=== PATIENT | female | born 1950 | race Caucasian/White ===

== ENCOUNTER 2022-11-24 15:46 | Outpatient (OUT) | payer MEDICARE, OTHER, SELFPAY ==
[2022-11-24 16:07] LABS: Basophils Percent Auto 0.8 % (0.2-2.0); Eosinophils Absolute Auto 0.3 10^3/uL (0.0-0.7); Eosinophils Percent Auto 5.2 % (0.9-7.0); Hematocrit 36.5 % (36.0-48.0); Immature Granulocytes Abs Auto 0.02 10^3/uL (0.00-0.03); Immature Granulocytes Pct Auto 0.4 % (0.0-0.5); Lymphocytes Percent Auto 19.7 % (20.5-60.0); Mean Corpuscular HGB Conc 32.9 g/dL (29.9-35.2); Mean Corpuscular Hemoglobin 31.3 pg (26.7-34.0); Mean Corpuscular Volume 95.1 fL (81.0-99.0); Mean Platelet Volume 8.8 fL (9.5-13.5); Monocytes Absolute Auto 0.6 10^3/uL (0.3-0.8); Neutrophils Absolute Auto 3.3 10^3/uL (1.4-6.5); Neutrophils Percent Auto 62.9 % (43.0-75.0); Platelet Count 214 10^3/uL (150-450); Red Blood Count 3.84 10^6/uL (4.20-5.40); Red Cell Distribution Width 13.2 % (11.0-15.0); White Blood Count 5.2 10^3/uL (4.0-11.0)
[2022-11-24 16:38] LABS: Alanine Aminotransferase 15 U/L (14-59); Albumin Level 3.7 g/dL (3.4-5.0); Alkaline Phosphatase 107 U/L (46-116); Anion Gap 14.3; Aspartate Amino Transferase 14 U/L (15-37); BUN Creatinine Ratio 12.3; Bilirubin Total 0.5 mg/dL (0.2-1.0); Calcium 8.9 mg/dL (8.5-10.1); Chloride 105 mmol/L (98-107); Estimated GFR (African America 52 (>=60); Estimated GFR (Non-African Ame 43 (>=60); Globulin 3.7 g/dL; Glucose 127 mg/dL (74-106); Magnesium 1.8 mg/dL (1.8-2.4); Phosphorus 3.4 mg/dL (2.6-4.7); Potassium 4.3 mmol/L (3.5-5.1); Sodium 143 mmol/L (136-145); Total Protein 7.4 g/dL (6.4-8.2)
== END 2022-11-24 15:47 | disposition home or self-care (01) ==
LOC: LAB 15:46
PROVIDERS: PCP Nurse Practitioner
DX: M15.0 Primary generalized (osteo)arthritis (principal); M91.0 Juvenile osteochondrosis of pelvis; Z79.899 Other long term (current) drug therapy
CPT/HCPCS: 36415; 80053; 83735; 84100; 85025

== ENCOUNTER 2022-12-03 12:52 | Outpatient (OUT) | payer MEDICARE, OTHER, SELFPAY ==
--- NOTE | 2022-12-03 12:57 | XR_ITS ---
The [address] [address] Patient Name: BRAYDEN LINDER MRN: [id number] date: 1950 Sex: F Assigned Patient Location: [facility] Current Patient Location: [facility] Accession/Order Number: [id number] Exam Date: 12/03/2022 13:00 Report Date: 12/03/2022 14:11 At the request of: NON-STAFF PHYSICIAN Procedure: XR DEXA axial skeleton DEXA Bone Density Study INDICATION: Osteoporosis. Evaluate bone mineral density. COMPARISON:DEXA scan 06/12/2020 FINDINGS: The bone density study was assessed by dual-energy x-ray absorptiometry with the [employer] scanner. The test results are expressed in T-Score, which is used for diagnosis for osteoporosis, and reflects the standard deviations from the mean peak bone mineral density in young adults. Lumbar Spine (L2-L4): BMD (gm/cm2): 1.301 T-Score: 0.8 Left Hip TOTAL: BMD (gm/cm2): 0.927 T-Score: -0.6 Left Hip NECK: BMD (gm/cm2): 0.825 T-Score: -1.5 Right femur TOTAL: BMD (gm/cm2: 0.911 T score: -0.8 Right femur NECK: BMD (gm/cm2: 0.849 T score: -1.4 XR/XR DEXA axial skeleton IMPRESSION: Bone mineral density WHO Classification: Osteopenia Fracture risk: Moderate REFERENCE: In children, postmenopausal women and males under age 50 not at increased risk for fractures, only Z-Scores, not T-Scores, are used to indicate fracture risk. A Z-Score above -2.0 is defined as within the expected range for age and Z-Score at or less than -2.0 is below the expected range for age. A Z-Score below the expected range for age in a patient with recent fractures and/or chronic corticosteroid treatment is consistent with a diagnosis of osteoporosis. In postmenopausal women and males over 50, comparison of the measured bone mineral density with the average value in young normal subjects (the T-Score) has been found to be useful in assessing fracture risk. Fracture risk approximately doubles for each 1.0 standard deviation (SD) that the individuals hip or spine bone mineral density is below the average value of young normal subjects. The World Health Organization (WHO) has provided the following definitions: 1. Normal: T-Score within one standard deviation of young adult mean value (T-Score at or above -1.0). 2. Osteopenia (low bone mass): T-Score more than one standard deviation below the young adult mean but less than 2.5 standard deviations below the young adult mean (T-Score between -1.0 and -2.5). 3. Osteoporosis: T-Score at or more than 2.5 standard deviations below the young adult mean (T-Score at or less than -2.5). 4. Severe Osteoporosis (established osteoporosis): T-Score more than 2.5 standard deviations below young adult and one or more fragility fracture (T-Score less than -2.5 plus fragility fractures). Electronically authenticated by: ELOY KLEIN Date: 12/03/2022 14:11
== END 2022-12-03 12:53 | disposition home or self-care (01) ==
LOC: RAD 12:52
PROVIDERS: PCP Nurse Practitioner
DX: M81.0 Age-related osteoporosis without current pathological fracture (principal); M85.88 Other specified disorders of bone density and structure, other site
CPT/HCPCS: 77080

== ENCOUNTER 2023-03-20 13:25 | Outpatient (OUT) | payer MEDICARE, OTHER, SELFPAY ==
[2023-03-20 14:46] LABS: Basophils Percent Auto 0.7 % (0.2-2.0); Eosinophils Absolute Auto 0.2 10^3/uL (0.0-0.7); Eosinophils Percent Auto 2.9 % (0.9-7.0); Hematocrit 36.9 % (36.0-48.0); Hemoglobin 11.8 g/dL (12.0-16.0); Immature Granulocytes Abs Auto 0.02 10^3/uL (0.00-0.03); Immature Granulocytes Pct Auto 0.3 % (0.0-0.5); Lymphocytes Absolute Auto 1.2 10^3/uL (1.2-3.8); Lymphocytes Percent Auto 20.8 % (20.5-60.0); Mean Corpuscular Hemoglobin 31.2 pg (26.7-34.0); Mean Corpuscular Volume 97.6 fL (81.0-99.0); Mean Platelet Volume 9.5 fL (9.5-13.5); Monocytes Absolute Auto 0.7 10^3/uL (0.3-0.8); Monocytes Percent Auto 11.2 % (1.7-12.0); Neutrophils Absolute Auto 3.7 10^3/uL (1.4-6.5); Neutrophils Percent Auto 64.1 % (43.0-75.0); Platelet Count 242 10^3/uL (150-450); Red Blood Count 3.78 10^6/uL (4.20-5.40); Red Cell Distribution Width 13.6 % (11.0-15.0); White Blood Count 5.8 10^3/uL (4.0-11.0)
[2023-03-20 15:00] LABS: Alanine Aminotransferase 15 U/L (14-59); Albumin Level 3.7 g/dL (3.4-5.0); Alkaline Phosphatase 115 U/L (46-116); Anion Gap 10.9; Aspartate Amino Transferase 13 U/L (15-37); BUN Creatinine Ratio 14.6; Bilirubin Total 0.6 mg/dL (0.2-1.0); Calcium 9.3 mg/dL (8.5-10.1); Carbon Dioxide 27.1 mmol/L (21.0-32.0); Chloride 103 mmol/L (98-107); Estimated GFR (African America 49 (>=60); Estimated GFR (Non-African Ame 40 (>=60); Globulin 3.7 g/dL; Glucose 117 mg/dL (74-106); Sodium 137 mmol/L (136-145); Total Protein 7.4 g/dL (6.4-8.2)
[2023-03-20 15:14] LABS: TSH W/ REFLEX FT4 3.022 (0.358-3.740)
== END 2023-03-20 13:26 | disposition home or self-care (01) ==
PROVIDERS: Visit Provider Nurse Practitioner Family
DX: R53.83 Other fatigue (principal); Z68.41 Body mass index [BMI] 40.0-44.9, adult; I25.10 Atherosclerotic heart disease of native coronary artery without angina pectoris; R06.09 Other forms of dyspnea
CPT/HCPCS: 36415; 80053; 82306; 82607; 83880; 84443; 85025

== ENCOUNTER 2023-03-23 14:51 | Outpatient (OUT) | payer MEDICARE, OTHER, SELFPAY ==
--- NOTE | 2023-03-23 15:39 | CA_ITS ---
Patient Name: BRAYDEN LINDER MR#: [id number] : 1950 Exam Date: 03/23/2023 Ordering Doctor: JULI COSBY CNP ECHOCARDIOGRAM REPORT PROCEDURE: CA ECHO DOPPLER COMPLETE INDICATIONS: CAD, FATIGUE, WARREN COMPARISON: None. DESCRIPTION: COMPLETE ECHOCARDIOGRAM Real-time transthoracic echocardiography with 2D, M-mode, spectral and color flow Doppler performed. QUALITY: Technical quality was good. LEFT VENTRICLE: Normal chamber size. Normal left ventricular wall thickness. LV EF: Global left ventricular systolic function is normal. Visual estimation of left ventricular ejection fraction is 65% DIASTOLIC: Grade I diastolic dysfunction. ATRIAL SEPTUM: Inadequately seen. LEFT ATRIUM: Mild dilatation. RIGHT ATRIUM: Moderate dilatation. RIGHT VENTRICLE: Normal chamber size. Normal right ventricular systolic function. TRICUSPID VALVE: Normal mobility and thickness. Mild regurgitation. Moderate pulmonary hypertension. RVSP 45mmHg MITRAL VALVE: Normal mobility and thickness. No evidence of mitral valve stenosis. Mild mitral annular calcification. Trivial mitral regurgitation. AORTIC VALVE: Normal trileaflet appearance. Thickened aortic valve. Normal leaflet mobility. No evidence of aortic valve stenosis. No aortic regurgitation. AORTIC ROOT: Normal diameter and appearance. PULMONIC VALVE: Normal thickness and mobility. No stenosis. No regurgitation. PERICARDIUM: No evidence of pericardial effusion. IVC: Collapses with inspirations. Normal size. CONCLUSION: 1. Global left ventricular systolic function is normal; visually estimated ejection fraction 60 to 65% 2. The right ventricle is normal in size and systolic function 3. Grade 1, mild diastolic dysfunction 4. Biatrial enlargement 5. Mild tricuspid regurgitation 6. Moderately elevated right ventricular systolic pressure Adult Echocardiography Procedure Report Left Ventricle LVEDD (3.7 - 5.6 cm): 4.54 cm LVESD (2.2 - 4.0 cm): 3.08 cm LVIVS thickness (0.6 - 1.2 cm): 1.09 cm LVPW thickness (0.5 - 1.0 cm): 1.15 cm e': 0.10 m/s E - e': 5.80 LVOT Max Gradient: 5.58 mm[Hg] LVOT Area (cm2): 1.18 m/s Peak Velocity (LVOT): 1.18 m/s Mean Velocity (LVOT): 0.80 m/s LVOT Diameter 1.87 cm Left Atrium LA Volume Index (2D A2C): 42.34 ml/m2 Left Atrium Systolic Dimension: 3.93 cm Mitral Valve MV E to A Ratio: 0.76 Mitral Valve A-Wave Peak Velocity: 0.76 m/s Mitral Valve E-Wave Peak Velocity: 0.58 m/s Right Ventricle RV Internal Diastolic Dimension: 3.73 cm Aorta AO Root Diam: 3.07 cm Ascending Ao Diam: 2.72 cm Aortic Valve AoV Area (Peak Esau): 1.98 cm2, 1.98 cm2 AoV Area (VTI): 1.84 cm2, 1.84 cm2 Peak Velocity(Antegrade Flow): 1.63 m/s Peak Gradient(Antegrade Flow): 10.67 mm[Hg] Mean Velocity(Antegrade Flow): 1.09 m/s Mean Gradient(Antegrade Flow): 5.48 mm[Hg] Velocity Time Integral: 40.65 cm Tricuspid Valve Peak Velocity (Regurgitant Flow): 3.04 m/s, 2.84 m/s, 3.25 m/s Pulmonic Valve Mean Gradient: 2.47 mm[Hg] Mean Velocity: 0.74 m/s Peak Velocity: 1.01 m/s, 1.11 m/s Peak Gradient: 4.92 mm[Hg], 4.09 mm[Hg] Right Atrium Right Atrium Systolic Pressure: 92.10 ml, 92.10 ml Dictated by: Monico Soto M.D. on 03/24/2023 at 09:48 Approved by: Monico Soto M.D. on 03/24/2023 at 09:51
== END 2023-03-23 14:52 | disposition home or self-care (01) ==
LOC: CARD 14:51
DX: R53.83 Other fatigue (principal); I25.10 Atherosclerotic heart disease of native coronary artery without angina pectoris; R06.09 Other forms of dyspnea; M15.0 Primary generalized (osteo)arthritis; M81.0 Age-related osteoporosis without current pathological fracture; Z79.899 Other long term (current) drug therapy
CPT/HCPCS: 93306

== ENCOUNTER 2023-05-18 12:36 | Outpatient (OUT) | payer MEDICARE, OTHER, SELFPAY ==
--- OUTSIDE RECORDS SUMMARY | 2023-05-18 12:41 | XMS_ITS | CCD ---
Author Name Unknown Address [address] [place] [address] Organization [facility] Care Team Providers Care Waxer Operator Name Role Phone UNKNOWN, PROVIDER Admitting Unavailable SANAZ LAKE Referring Unavailable SANAZ LAKE Primary Care Unavailable UNKNOWN, PROVIDER Attending Unavailable SANAZ LAKE Primary Care Physician Xuan Mckeon Unavailable Unavailable Lonnie Vuong Unavailable Angela Rodriguez Unavailable Unavailable Primary Care Provider Unavailjr fulton PROVIDER, UNKNOWN Admitting Unavailable CHRIST RODRIGUEZ Referring Unavailable PROVIDER, UNKNOWN Attending Unavailable PROVIDER, UNKNOWN Admitting Unavailable PROVIDER, UNKNOWN Attending Unavailable PROVIDER, UNKNOWN Attending Unavailable CHRIST RODRIGUEZ Referring Unavailable PROVIDER, UNKNOWN Admitting Unavailable XUAN STALLWORTH Admitting Unavailable XUAN STALLWORTH Attending Unavailable KSENIA, DR LONNIE Domínguez Consulting Unavailable LAKE ., DR SANAZ Fulton Primary Care Unavailable XUAN STALLWORTH Consulting Unavailable HOY ., DR MONROE Admitting Unavailable HOY ., DR MONROE Attending Unavailable LAKE ., DR SANAZ [place] Primary Care Unavailable HOY .DR MONROE Consulting Unavailable NADERER, DR KAYLA Nugent Consulting Unavailable GRECHNY ., FERNANDO ZAMARRIPA Consulting UnavailANA Parra Consulting Unavailable TIMMIS, DR PATTON Admitting Unavailable TIMMIS, DR PATTON Attending Unavailable TIMMIS, DR PATTON Consulting Unavailable LAKE ., DR SANAZ Fult[place] Primary Care Unavailable KSENIA, DR LONNIE Domínguez Consulting Unavailable LAKE ., DR SANAZ Fulton Admitting Unavailable LAKE ., DR SANAZ Fulton Primary Care Unavailable LAKE ., DR SANAZ Fulton Attending Unavailable LAKE ., DR SANAZ Fulton Consulting Unavailable RAMIREZ Sunshine, DR SUSIE Alvarado Admitting Unavailjune Sunshine, DR SUSIE Alvarado Attending Unavaila azucena POST, DR HOWARD Gamino Consulting Unavailable LAKE ., DR SANAZ [place] Primary Care Unavailable RAMIREZ RUSH ., DR SUSIE Alvarado Consulting Unavaila ble PAY ., DR CHAVEZ Admitting Unavailable PAY ., DR CHAVEZ Attending Unavailable PAY ., DR CHAVEZ Consulting Unavailable LAKE ., DR SANAZ [place] Primary Care Unavailable KLIPPER, LONNIE Consulting Unavailable NEFCY, MAURICE Consulting Unavailable LAKE ., DR SANAZ [place] Consulting Unavailable LAKE ., DR SANAZ [place]ulton Primary Care Unavailable LAKE ., DR SANAZ Fulton Admitting Unavailable LAKE ., DR SANAZ Fulton Attending Unavailable TIMMIS, DR PATTON Admitting Unavailable TIMMIS, DR PATTON Attending Unavailable TIMMIS, DR PATTON Consulting Unavailable LAKE ., DR SANAZ [place] Primary Care Unavailable ZIEBER, DR HOWARD Gamino Consulting Unavailable LAKE ., DR SANAZ Fulton Consulting Unavailable LAKE ., DR SANAZ Fulton Admitting Unavailable LAKE ., DR SANAZ Fulton Primary Care Unavailable LAKE ., DR SANAZ Fulton Attending Unavailable LAKE ., DR SANAZ Fulton Consulting Unavailable LAKE ., DR SANAZ Fulton Primary Care Unavailable LAKE ., DR SANAZ Fulton Admitting Unavailable LAKE ., DR SANAZ Fulton Attending Unavailable LAKE ., DR SANAZ Fulton Consulting Unavailable LAKE ., DR SANAZ Fulton Admitting Unavailable LAKE ., DR SANAZ Fulton Primary Care Unavailable LAKE ., DR SANAZ [place]ulton Attending Unavailable DUENAS, DR AU Admitting Unavailable MISC, DR LEE Consulting Unavailable LAKE ., DR SANAZ [place] Primary Care Unavailable DUENAS, DR AU Attending Unavailable LAKE ., DR SANAZ [place]ulton Consulting Unavailable LAKE ., DR SANAZ [place]on Admamber Unavailable LAKE ., DR SANAZ Fulton Primary Care Unavailable LAKE ., DR SANAZ Fulton Attending Unavailable TIMMIS, DR PATTON Admitting Unavailable TIMMIS, DR PATTON Attending Unavailable LAKE ., DR SANAZ Fulton Primary Care Unavailable TIMMIS, DR PATTON Consulting Unavailable LAKE ., DR SANAZ Fulton Admitting Unavailable LAKE ., DR SANAZ Fulton Primary Care Unavailable LAKE ., DR SANAZ Fulton Attending Unavailable LAKE ., DR SANAZ Fulton Consulting Unavailable MOUKARBEL, DR ROBLEDO Consulting Unavailable LAKE ., DR SANZA Fulton Primary Care Unavailable TIMMIS, DR PATTON Admitting Unavailable TIMMIS, DR PATTON Attending Unavailable TIMMIS, DR PATTON Consulting Unavailable LAKE ., DR SANAZ [place] Primary Care Unavailable RAMIREZ RUSH ., DR SUSIE Alvarado Admitting Unavaila ble RAMIREZ RUSH ., DR SUSIE Alvarado Attending Unavaila ble ZIEBER, DR HOWARD Gamino Consulting Unavailable GUZMÁN JR ., DR SUSIE Alvarado Consulting Unavaila ble LAKE ., DR SANAZ Fulton Consulting Unavailable LAKE ., DR SANAZ Fulton Admitting Unavailable LAKE ., DR SANAZ Fulton Primary Care Unavailable LAKE ., DR SANAZ Fulton Attending Unavailable MOUKARBEL, DR ROBLEDO Consulting Unavailable MOUKARBEL, DR ROBLEDO Admitting Unavailable LAKE ., DR SANAZ Fulton Primary Care Unavailable MOUKARBEL, DR ROBLEDO Attending Unavailable MOUKARBEL, DR ROBLEDO Consulting Unavailable MOUKARBEL, DR ROBLEDO Admitting Unavailable MOUKARBEL, DR ROBLEDO Attending Unavailable LAKE ., DR SANAZ Fulton Primary Care Unavailable Amilcar Cordova. Primary Care Physician [phone] Lonnie Vuong Attending Unavailable Lonnie Vuong Admitting Unavailable Lake, Sanaz Fulton Primary Care Unavailable JULI COSBY Attending Unavailable Walsh, [place] Attending Unavailable Walsh, [place] Admitting Unavailable Walsh, [place] Admitting Unavailable Walsh, [place] Attending Unavailable LAKE, SANAZ Fulton Referring Unavailable Christ Rodriguez Admitting Unavailable Christ Rodriguez Attending Unavailable Kev, HVAC DESIGN MECHANICAL ENGINEER Radha Alvarado Attending Unavailable Prudencio Payan Attending Unavailable DO Prudencio Payan Admitting Unavailabl e LAKE, SANAZ Fulton Referring Unavailable Walsh, [place] Attending Unavailable Walsh, SHIRLEY [place] Admitting Unavailabl e LAKE, SANAZ Fulton Referring Unavailable Walsh, [place] Attending Unavailable Walsh, [place] Admitting Unavailable LAKE, SANAZ E Referring Unavailable Walsh, [place] Admitting Unavailable LAKE, SANAZ Fulton Referring Unavailable Walsh, [place] Attending Unavailable Walsh, SHIRLEY [place] Admitting Unavailabl e LAKE, SANAZ E Referring Unavailable [place], [place] Attending Unavailable Prudencio Payan Referring Unavailable Prudencio Payan Admitting Unavailable Prudencio Payan Attending Unavailable Chad Salas Admitting Unavailable ZmaluarLamarry Attending Unavailable Zumbar, Chad Referring Unavailable Walsh, [place] Admitting Unavailable Walsh, [place] Attending Unavailable Allergies Allergy Classification Reported Allergen(s) Allergy Type Date of Onset Reaction(s) Facility Penicillins (antibiotic) (1 source) Amoxicillin Drug Allergy 1 [facility] Repository (20 sources) Amoxicillin; Translations: [amoxicillin] Drug Allergy 0 rash, Hives, Other Specialty [employer] [facility] Other (1 source) Amoxicillin Drug Allergy The [facility] Repository (1 source) Amoxicillin Drug Allergy 2 [facility] Repository Medications Current Medications Medication Drug Class(es) Dates Sig (Normalized) Sig (Original) acetaminophen 300 mg / codeine phosphate 30 mg oral tablet (3 sources) Opioid Agonist take 1 tablet by mouth every six hours Acetaminophen-Cod eine #3 300-30 MG 1 tablet as needed Orally every 6 hrs Active acetaminophen 325 mg / HYDROcodone bitartrate 5 mg oral tablet (20 sources) Opioid Agonist Start: 12-26-2022 End: 01-25-2023 Delta 325 mg-5 mg oral tablet 1 tab(s), Oral, BID as needed for pain for 30 day(s), 60 tab(s), Refill(s) 0, [facility]/pharmacy #[id number], 158, cm, 12/26/22 14:12:00 EDT, Height/Length Dosing, 104.5, kg, 12/26/22 14:12:00 EDT, Weight Dosing Start Date: 12/26/22 Stop Date: 01/25/23 Status: Ordered Start: 10-09-2021 Hydrocodone-Ac etaminophen Active 1 TAB PO As Directed October 09, 2021 12:00am Start: 10-02-2021 take 1 tablet by laura th twice daily as needed for pain hydrocodone-acetaminophen (NORCO) 5-325 mg per tablet hydrocodone 5 mg-acetaminophen 325 mg tablet TAKE 1 TABLET BY MOUTH TWICE A DAY NEEDED FOR PAIN 0 06/02/2022 Active Start: 06-08-2019 End: 02-06-2021 take 1 tablet by mouth every four hours Hydrocodone-Acetaminophen (Delta) 5-325 mg Tablet Discontinued 1 TAB PO Q4H June 08, 2019 1:00am February 06, 2021 6:48am Acidophilus Probiotic Blend (2 sources) Start: 08-30-2019 take 1 capsule by mouth once daily Acidophilus Probiotic Blend 1 cap(s), Oral, Daily, Refill(s) 0 Start Date: 08/30/19 Status: Ordered [id number] 200 actuat albuterol 0.09 mg/actuat metered dose inhaler (1 source) beta2-Adrenergic Agonist Start: 11-26-2021 take 2 puff(s) by inhalation every four hours as needed Albuterol Sulfate HFA 108 (90 Base) MCG/ACT 2 puffs as needed Inhalation every 4 hrs Nov, Active alendronic acid 35 mg oral tablet (20 sources) Bisphosphonate Start: 09-26-2022 alendronate 35 mg Tab Refills(s) 0 Start Date: 09/26/22 Status: Ordered Start: 06-08-2019 take 1 tablet by laura th every week Fosamax 70 mg oral tablet 70 mg = 1 tab(s), Oral, qWeek, Thursday, Refills(s) 0, Other (see comment) Start Date: 06/07/20 Status: Ordered alendronate (FOS AMAX) 35 MG tablet alendronate 35 mg tablet 0 Active Alendronate Sodi um 70 MG 1 tablet 30 minutes before the first food, beverage or medicine of the day with plain water Orally once a week Active amLODIPine 10 mg oral tablet (7 sources) Dihydropyridine Calcium Channel Denise Start: 01-08-2022 amLODIPine 10 mg Tab Refills(s) 0 Start Date: 01/08/22 Status: Ordered aspirin 81 mg delayed release oral tablet (20 sources) Platelet Aggregation Inhibitor, Nonsteroidal Anti-inflammatory Drug Start: 06-08-2019 take 1 tablet by mouth once daily aspirin 81 mg Oral EC Tab 81 mg = 1 tab(s), Oral, Daily, Refills(s) 0, Blood Thinner Start Date: 09/13/20 Status: Ordered take 1 tablet by laura th every twenty-four hours Aspirin 81 MG 1 tablet Orally Once a day Active atorvastatin 40 mg oral tablet (4 sources) HMG-CoA Reductase Inhibitor Start: 02-06-2021 take 1 tablet by mouth once daily atorvastatin 40 mg Tab TAKE 1 TABLET BY MOUTH EVERY DAY Start Date: 02/07/21 Status: Ordered biotin 10 mg oral capsule (20 sources) Start: 03-13-2021 take 21500 ug by mouth twice daily Biotin Active 80747 MCG PO Twice daily March 13, 2021 12:00am Start: 07-01-2019 take 1 tablet by laura th twice daily biotin = 1 tab(s), Oral, BID, Refills(s) 0, Prophylaxis Start Date: 07/01/19 Status: Ordered Start: 07-01-2019 take 1 tablet by laura th twice daily biotin = 1 tab(s), Oral, BID, Refills(s) 0 Start Date: 07/01/19 Status: Ordered Start: 06-08-2019 End: 03-13-2021 take 1500 ug by mouth twice daily Biotin Discontinued 1500 MCG PO Twice daily June 08, 2019 1:00am March 13, 2021 10:27am take 1 tablet by laura th twice daily Biotin 95703 MCG TABS 1 tablet Orally bid 0 Active Biotin Maximum 93572 MCG (3 sources) Biotin Maximum 1 0000 MCG as directed Orally twice a day Active bisoprolol fumarate 10 mg oral tablet (20 sources) beta-Adrenergic Denise Start: 02-06-2021 take 1 tablet by mouth once daily bisoprolol 10 mg Tab 10 mg = 1 tab(s), Oral, Daily, High blood pressure Start Date: 10/31/21 Status: Ordered brimonidine (20 sources) alpha-Adrenergic Agonist Start: 10-22-2015 take 1 drop(s) into the eye(s) at bedtime Alphagan P 1 drop, Eye-Both, Bedtime, Refill(s) 0, Other (see comment) Start Date: 10/22/15 Status: Ordered take 1 drop(s) into the eye(s) every eight hours Brimonidine Tartrate 0.2 % 1 drop into affected eye Ophthalmic every 8 hrs Active Calcium + D3 600-800 MG-UNIT (3 sources) take 600-800 tablets by mouth once daily Calcium + D3 600-800 MG-UNIT 1 tablet with a meal Orally Once a day Active calcium carbonate 1500 mg / cholecalciferol 200 unt oral capsule (2 sources) Vitamin D Start: 06-08-2019 take 1 tablet by mouth once daily Calcium Carbonate-Vitamin D3 (Calcium 600 + D(3)) 600 mg calcium- 200 unit Capsule Active 1 TAB PO Daily June 08, 2019 1:00am Calcium Carb-Cho lecalciferol 600-20 MG-MCG TABS Take by mouth every 24 hours. 0 Active calcium-vitamin D extended release (20 sources) Start: 10-31-2021 take 2 tablets by mouth once daily in the morning calcium-vitamin D extended release 2 tab(s), Oral, qAM, Prophylaxis Start Date: 10/31/21 Status: Ordered Chondroitin Sulfates / Glucosamine (20 sources) Start: 10-31-2021 take 1 capsule by mouth twice daily Glucosamine Chondroitin oral capsule 1 cap, Oral, BID, Prophylaxis Start Date: 10/31/21 Status: Ordered Start: 04-02-2021 Glucosamine Ch ondroitin Oral, Daily, Refill(s) 0 Start Date: 04/02/21 Status: Ordered [place] Calcium with Vitamin D (2 sources) Start: 05-20-2017 take 1 tablet by mouth once daily [place] Calcium with Vitamin D 1 tab(s), Oral, Daily, 600mg, Prophylaxis Start Date: 05/20/17 Status: Ordered Cyanocobalamin (Vitamin B-12) (Vitamin B-12) 5,000 mcg Tablet, Sublingual (1 source) Start: 03-13-2021 take 1 tablet under the tongue once daily Cyanocobalamin (Vitamin B-12) (Vitamin B-12) 5,000 mcg Tablet, Sublingual Active 5000 MCG SUBLINGUAL Daily March 13, 2021 12:00am doxepin hydrochloride 10 mg oral capsule (20 sources) Tricyclic Antidepressant Start: 10-31-2021 take 1 capsule by mouth once daily doxepin 10 mg Cap 10 mg = 1 cap(s), Oral, Daily, Depression Start Date: 10/31/21 Status: Ordered furosemide 40 mg oral tablet (4 sources) Loop Diuretic Start: 09-26-2022 take 1 tablet by mouth twice daily furosemide 40 mg Tab 40 mg = 1 tab(s), Oral, BID, Refills(s) 0 Start Date: 09/26/22 Status: Ordered Start: 07-26-2022 take 1 tablet by laura th once daily in the morning furosemide (LASIX) 40 MG tablet Take 40 mg by mouth every morning. 0 07/26/2022 Active gabapentin 300 mg oral capsule (20 sources) Anti-epileptic Agent Start: 12-08-2022 gabapenti n 300 mg Cap See Instructions, one cap in AM, 2 caps at bedtime., # 270 cap(s), Refills(s) 0, Pharmacy: [facility], 158, cm, 09/26/22 13:04:00 EDT, Height/Length Dosing, 106.6, kg, 09/16/22 13:01:00 EDT, Weight Dosing Start Date: 12/08/22 Status: Ordered Start: 04-25-2021 gabapentin (NE URONTIN) 300 MG capsule Start: 06-08-2019 take 300 mg by mouth once daily at bedtime Gabapentin Active 600 MG PO Daily at bedtime June 08, 2019 1:00am 300mg AM take 1 capsule by [facility] every eight hours Gabapentin 300 MG 1 capsule Orally three times a day Active Glucos Sul 3yry-Ydl-Pteub-C-Mn (Glucosamine Chondroitin) 550-30-1 mg Capsule (1 source) Start: 06-08-2019 take 1 tablet by mouth twice daily Glucos Sul 3kop-Xfv-Lkzpo-C-Mn (Glucosamine Chondroitin) 550-30-1 mg Capsule Active 1 TAB PO Twice daily June 08, 2019 1:00am Glucosamine Chondr 1500 Complx - (3 sources) Glucosamine Jonatan dr 1500 Complx - as directed Orally twice a day Active Yzmwjlpisek-Jzhmvgqor-E it C-Mn (Glucosamine Chondr 1500 Complx) CAPS (1 source) Glucosamine-Jonatan droit- Vit C-Mn (Glucosamine Chondr 1500 Complx) CAPS Take by mouth every 12 hours. 0 Active High Potency Probiotic oral capsule (20 sources) Start: 10-31-2021 take 1 capsule by mouth once daily High Potency Probiotic oral capsule 1 cap, Oral, Daily, Prophylaxis Start Date: 10/31/21 Status: Ordered hyoscyamine sulfate 0.125 mg oral tablet (16 sources) Start: 11-07-2021 take 1 tablet by mouth four times daily as needed for muscle spasms Levsin 0.125 mg SL Tab 0.125 mg = 1 tab(s), Oral, QID, PRN Spasm, # 20 tab(s), Refills(s) 0, Pharmacy: [facility]/pharmacy #[id number], 158, cm, 10/31/21 16:20:00 EDT, Height/Length Dosing, 97.9, kg, 10/31/21 16:20:00 EDT, Weight Dosing Start Date: 11/07/21 Status: Ordered inulin 200 mg / lactobacillus rhamnosus gg [id number] unt oral capsule (4 sources) Lactobacillus-In ulin ([facility]) CAPS Take by mouth. 0 Active 24 hr isosorbide mononitrate 120 mg extended release oral tablet (20 sources) Nitrate Vasodilator Start: 02-06-2021 take 1 tablet by mouth once daily in the morning isosorbide mononitrate 120 mg ER Tab 120 mg = 1 tab(s), Oral, qAM, Refills(s) 0, High blood pressure Start Date: 04/02/21 Status: Ordered take 1 tablet by laura th every twenty-four hours Isosorbide Mononitrate ER 60 MG 1 tablet in the morning Orally Once a day Active ketorolac tromethamine 10 mg oral tablet (9 sources) Nonsteroidal Anti-inflammatory Drug, Cyclooxygenase Inhibitor Start: 11-07-2021 take 1 tablet by mouth every six hours ketorolac 10 mg Tab 10 mg = 1 tab(s), Oral, q6hr, # 20 tab(s), Refills(s) 0, Pharmacy: [facility]/pharmacy #[id number], 158, cm, 10/31/21 16:20:00 EDT, Height/Length Dosing, 97.9, kg, 10/31/21 16:20:00 EDT, Weight Dosing Start Date: 11/07/21 Status: Ordered Lactobacillus Combination No.4 (Probiotic) 3 billion cell Capsule (1 source) Start: 02-06-2021 take 3 capsules by mouth once daily Lactobacillus Combination No.4 (Probiotic) 3 billion cell Capsule Active 3000 MMU CELLS PO Daily February 06, 2021 12:00am latanoprost 0.05 mg/ml ophthalmic solution (20 sources) Prostaglandin Analog Start: 10-22-2015 take 1 drop(s) into the eye(s) once daily in the morning Xalatan 0.005% Soln-Opth 1 drop(s), Eye-Both, qAM, 2.5 mL, Refill(s) 0, glaucoma, Other (see comment) Start Date: 10/22/15 Status: Ordered levothyroxine sodium 0.1 mg oral tablet (20 sources) l-Thyroxine Start: 05-26-2022 levothyroxine (SYNTHROID) 100 MCG tablet levothyroxine 100 mcg tablet 0 05/26/2022 Active Start: 06-08-2019 take 112 ug by mouth once silvestre y Levothyroxine Active 112 MCG PO Daily June 08, 2019 1:00am Start: 01-19-2019 take 100 ug by mouth once silvestre y Synthroid 100 mcg, Oral, Daily, Refills(s) 0, Thyroid Start Date: 01/19/19 Status: Ordered Start: 01-19-2019 Synthroid 125 microgram, Oral, Daily, Refills(s) 0 Start Date: 01/19/19 Status: Ordered take 1 tablet by laura th once daily in the morning Levothyroxine Sodium 125 MCG 1 tablet in the morning on an empty stomach Orally Once a day Active methylPREDNISolone 4 mg oral tablet (2 sources) Corticosteroid Start: 11-26-2021 methylPREDNISo lone (MEDROL) 4 MG tablet Take by mouth every 24 hours. 0 11/26/2021 Active Start: 11-26-2021 methylPREDNISo lone 4 MG as directed Orally Once a day for 6 days Nov, Active nitrofurantoin, macrocrystals 25 mg / nitrofurantoin, monohydrate 75 mg oral capsule (1 source) Nitrofuran Antibacterial Start: 11-07-2021 End: 11-14-2021 take 1 capsule by mouth twice daily Macrobid 100 mg Cap 100 mg = 1 cap(s), Oral, BID, X 7 day(s), # 14 cap(s), Refills(s) 0, Pharmacy: [facility]/pharmacy #[id number], 158, cm, 10/31/21 16:20:00 EDT, Height/Length Dosing, 97.9, kg, 10/31/21 16:20:00 EDT, Weight Dosing Start Date: 11/07/21 Stop Date: 11/14/21 Status: Ordered omeprazole 20 mg delayed release oral tablet (20 sources) Proton Pump Inhibitor Start: 06-08-2019 take 20 mg by mouth once daily Omeprazole Active 20 MG PO Daily June 08, 2019 1:00am Start: 11-24-2018 take 20 mg by mouth once daily omeprazole 20 mg, Oral, Daily, Control of stomach acid Start Date: 11/24/18 Status: Ordered omeprazole (PRIL OSEC) 20 MG capsule omeprazole 20 mg capsule,delayed release 0 Active Potassium Chloride (13 sources) Start: 03-27-2022 take 1 tablet by mouth twice daily Klor-Con 10 1 tab, Oral, BID, Refills(s) 0 Start Date: 03/27/22 Status: Ordered take 1 tablet by laura th twice daily at mealtime potassium chloride SA (KLOR-CON) 10 MEQ controlled release tablet 1 tablet with food Orally Twice a day 0 Active primidone 50 mg oral tablet (3 sources) Anti-epileptic Agent Start: 09-16-2022 primidone 50 mg Tab 25 mg = 0.5 tab(s), Oral, BID, # 30 tab(s), Refills(s) 0 Start Date: 09/16/22 Status: Ordered Probiotic Formula (Bacillus Coagulans) (2 sources) Start: 04-02-2021 Probiotic Formula (Bacillus Coagulans) Oral, Daily, Refill(s) 0 Start Date: 04/02/21 Status: Ordered sertraline 50 mg oral tablet (20 sources) Serotonin Reuptake Inhibitor Start: 06-08-2017 End: 08-06-2023 take 1 tablet by mouth once daily sertraline 50 mg Tab 50 mg, Oral, Daily, X 90 day(s), # 90 tab(s), Refills(s) 3, Pharmacy: [facility], 158, cm, 07/04/22 14:50:00 EST, Height/Length Dosing, 99, kg, 07/04/22 14:50:00 EST, Weight Dosing Start Date: 08/11/22 Stop Date: 08/06/23 Status: Ordered tiZANidine 4 mg oral tablet (20 sources) Central alpha-2 Adrenergic Agonist Start: 07-01-2019 take 2 tablets by mouth at bedtime tiZANidine 4 mg Tab 8 mg = 2 tab(s), Oral, Bedtime, Refills(s) 0, Insomnia Start Date: 07/01/19 Status: Ordered Start: 06-08-2019 take 8 mg by mouth at bedtime Tizanidine Active 8 MG PO Bedtime June 08, 2019 1:00am tizanidine (ANTONI FLEX) 4 MG tablet tizanidine 4 mg tablet 0 Active Vitamin B12 Methylcobalamin 5000 mcg sublingual tablet (20 sources) Start: 10-31-2021 take 1 tablet under the tongue once daily Vitamin B12 Methylcobalamin 5000 mcg sublingual tablet 5,000 mcg, SubLingual, Daily, Prophylaxis Start Date: 10/31/21 Status: Ordered Completed/Discontinued Medications Medication Drug Class(es) Dates Sig (Normalized) Sig (Original) bisoprolol fumarate 10 mg / hydroCHLOROthiazide 6.25 mg oral tablet (4 sources) Thiazide Diuretic, beta-Adrenergic Denise Start: 06-08-2019 End: 02-06-2021 take 1 tablet by mouth once daily Bisoprolol-Hydroc hlorothiazide Discontinued 1 TAB PO Daily June 08, 2019 1:00am February 06, 2021 6:44am lisinopril 5 mg oral tablet (5 sources) Angiotensin Converting Enzyme Inhibitor Start: 06-08-2019 End: 02-06-2021 take 5 mg by mouth once daily Lisinopril Discontinued 5 MG PO Daily June 08, 2019 1:00am February 06, 2021 6:48am lisinopril (ZEST RIL) 5 MG tablet Take by mouth every 24 hours. 0 Active 12 hr ranolazine 1000 mg extended release oral tablet (20 sources) Anti-anginal Start: 02-06-2021 take 1 tablet by mouth twice daily ranolazine 1000 mg oral tablet, extended release 1,000 mg = 1 tab(s), Oral, BID, TAKE 1 TABLET BY MOUTH TWO TIMES A DAY Start Date: 02/07/21 Status: Ordered Ranolazine Activ e sulindac 150 mg oral tablet (1 source) Nonsteroidal Anti-inflammatory Drug Start: 06-08-2019 End: 02-06-2021 take 150 mg by mouth once daily Sulindac Discontinued 150 MG PO Daily June 08, 2019 1:00am February 06, 2021 6:48am vitamin b12 1 mg oral tablet (1 source) Vitamin B12 Start: 06-08-2019 End: 03-13-2021 take 1 tablet by mouth once daily Cyanocobalamin (Vitamin B-12) (Vitamin B-12) 1,000 mcg Tablet Discontinued 1000 MCG PO Daily June 08, 2019 1:00am March 13, 2021 10:27am Vitamin B12 1000 mcg Tab (2 sources) Start: 10-22-2015 take 1 tablet by mouth once daily Vitamin B12 1000 mcg Tab 1,000 microgram = 1 tab(s), Oral, Daily, Refills(s) 0, Prophylaxis Start Date: 10/22/15 Status: Ordered Problems Active Problems Problem Classification Problem Date Documented Da te Episodic/Chronic Anxiety disorders (20 sources) Anxiety 07-01-2019 Chronic Calculus of urinary tract (20 sources) Kidney stone; Translations: [Calculus of kidney] Onset: 10-22-2021 Episodic Cancer of thyroid (20 sources) Malignant tumor of thyroid gland; Translations: [Malignant neoplasm of thyroid gland] Onset: 09-24-2021 04-02-2021 Chronic Cancer of uterus (6 sources) Malignant neoplasm of uterus; Translations: [Malignant neoplasm of uterus, part unspecified] Onset: 09-23-2021 04-02-2021 Chronic Chronic kidney disease (3 sources) Chronic kidney disease stage 2; Translations: [Chronic kidney disease, stage 2 (mild)] Chronic Chronic kidney disease (1 source) Chronic kidney disease; Translations: [CHRONIC KIDNEY DISEASE STAGE 3A] Onset: 02-19-2022 Coagulation and hemorrhagic disorders (1 source) Easy bruising; Translations: [Spontaneous ecchymoses] 06-08-2019 Episodic Congestive heart failure; nonhypertensive (2 sources) Chronic diastolic (congestive) heart failure; Translations: [Acute on chronic diastolic (congestive) heart failure] Onset: 02-19-2022 Chronic Coronary atherosclerosis and other heart disease (7 sources) Atherosclerotic heart disease of [place] coronary artery without angina pectoris; Translations: [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] Onset: 03-31-2022 Chronic Deficiency and other anemia (3 sources) Anemia due to chronic blood loss; Translations: [Iron deficiency anemia secondary to blood loss (chronic)] Chronic Deficiency and other anemia (5 sources) Iron deficiency anemia secondary to blood loss (chronic); Translations: [IRON DEFIC ANEMIA SEC BLD LOSS CHRN] Onset: 09-24-2021 Resolved: 09-25-2021 Chronic Deficiency and other anemia (20 sources) Anemia 04-02-2021 Episodic Deficiency and other anemia (7 sources) Iron deficiency anemia; Translations: [Iron deficiency anemia, unspecified] 03-13-2021 Episodic Deficiency and other anemia (1 source) Deficiency and other anemia; Translations: [D50.9 - Iron deficiency anemia, unspecified] Onset: 10-09-2021 Disorders of lipid metabolism (20 sources) Hyperlipidemia; Translations: [Mixed hyperlipidemia] Onset: 04-05-2022 04-02-2021 Chronic Essential hypertension (20 sources) Hypertensive disorder 07-04-2019 Chronic Gastrointestinal hemorrhage (3 sources) Hematochezia; Translations: [Melena] Episodic Genitourinary symptoms and ill-defined conditions (20 sources) Blood in urine; Translations: [Microscopic hematuria] Onset: 09-24-2021 06-28-2019 Episodic Glaucoma (20 sources) Glaucoma 07-04-2019 Chronic Hypertension with complications and secondary hypertension (7 sources) Malignant hypertensive chronic kidney disease; Translations: [Hypertensive chronic kidney disease with stage 1 through stage 4 chronic kidney disease, or unspecified chronic kidney disease] Onset: 02-14-2022 Chronic Intestinal infection (20 sources) Clostridium difficile diarrhea 08-30-2019 Episodic Malaise and fatigue (6 sources) Weakness; Translations: [Other fatigue] Onset: 09-12-2022 Episodic Nonspecific chest pain (3 sources) Chest pain, unspecified; Translations: [CHEST PAIN UNSPECIFIED] Onset: 02-19-2022 Episodic Osteoarthritis (20 sources) Arthritis; Translations: [Osteoarthritis] Onset: 06-06-2022 07-01-2019 Chronic Osteoporosis (1 source) Age-related osteoporosis without current pathological fracture; Translations: [AGE-REL OSTEOPOR W/O CURR PATH FX] Onset: 06-09-2022 Chronic Other aftercare (1 source) long term care social worker (current) use of aspirin; Translations: [FCI CURRENT USE OF ASPIRIN] Onset: 09-16-2022 Episodic Other aftercare (1 source) Other correction (current) drug therapy; Translations: [OTH CASH GRAIN FARMER CURRENT DRUG THERAPY] Onset: 09-16-2022 Episodic Other and ill-defined heart disease (20 sources) Heart disease 04-02-2021 Chronic Other and unspecified benign neoplasm (4 sources) History of polyp of colon; Translations: [Personal history of colonic polyps] 02-06-2021 Episodic Other bone disease and musculoskeletal deformities (20 sources) Osteopenia 07-01-2019 Episodic Other circulatory disease (20 sources) Low blood pressure 11-24-2018 Episodic Other diseases of kidney and ureters (3 sources) Disorder of kidney and/or ureter; Translations: [Other specified disorders of kidney and ureter] Onset: 10-22-2021 Chronic Other diseases of kidney and ureters (16 sources) Renal mass 01-08-2022 Chronic Other diseases of kidney and ureters (1 source) Other specified disorders of kidney and ureter; Translations: [OTHER SPEC DISORDERS KIDNEY URETER] Onset: 01-14-2022 Chronic Other gastrointestinal disorders (3 sources) Swollen abdomen; Translations: [Abdominal distension (gaseous)] Episodic Other injuries and conditions due to external causes (1 source) History of falling; Translations: [HISTORY OF FALLING] Onset: 09-16-2022 Episodic Other liver diseases (20 sources) Disease of liver 04-02-2021 Chronic Other lower respiratory disease (3 sources) Dyspnea 09-16-2022 Episodic Other lower respiratory disease (2 sources) Other forms of dyspnea; Translations: [Other forms of dyspnea] Onset: 01-18-2022 Episodic Other nervous system disorders (20 sources) Carpal tunnel syndrome 01-19-2019 Chronic Other nervous system disorders (20 sources) Trigeminal neuralgia 11-24-2018 Episodic Other nutritional; endocrine; and metabolic disorders (2 sources) Body mass index (BMI) 40.0-44.9, adult; Translations: [Body mass index (BMI) 40.0-44.9, adult] Onset: 03-18-2023 Chronic Other screening for suspected conditions (not mental disorders or infectious disease) (13 sources) Abnormal renal function 01-23-2022 Episodic Residual codes; unclassified (20 sources) Sleep apnea 09-18-2021 Chronic Residual codes; unclassified (20 sources) Chronic back pain 06-08-2017 Episodic Screening and history of mental health and substance abuse codes (1 source) Personal history of nicotine dependence; Translations: [PERSONAL HISTORY OF NICOTINE DEPEND] Onset: 09-16-2022 Episodic Spondylosis; intervertebral disc disorders; other back problems (5 sources) Cervical spondylosis; Translations: [Other spondylosis with myelopathy, cervical region] Onset: 07-30-2022 Chronic Spondylosis; intervertebral disc disorders; other back problems (1 source) Cervicalgia; Translations: [CERVICALGIA] Onset: 09-16-2022 Episodic Substance-related disorders (4 sources) Nicotine dependence; Translations: [Smoker] 04-02-2021 Chronic Comment on above: Added secondary to d ocumentation in Social History. Thyroid disorders (20 sources) Hypothyroidism; Translations: [Thyroid nodule] Onset: 09-16-2022 07-04-2019 Chronic Unclassified (18 sources) Long-term current use of opiate analgesic drug Onset: 11-21-2021 11-21-2021 Comment on above: Added secondary to c urrent Opioid Treatment Agreement Unclassified (1 source) CONTACT W/AND (SUSP) EXPOS COVID-19; Translations: [CONTACT W/AND (SUSP) EXPOS COVID-19] Onset: 09-16-2022 Past or Other Problems Problem Classification Problem Date Documented Date Episodic/Chronic Acute and unspecified renal failure (1 source) Acute kidney failure, unspecified; Translations: [ACUTE KIDNEY FAILURE UNSPECIFIED] Onset: 02-19-2022 Episodic Chronic obstructive pulmonary disease and bronchiectasis (1 source) Bronchitis, not specified as acute or chronic Onset: 11-26-2021 Resolved: 11-26-2021 Episodic Deficiency and other anemia (4 sources) Anemia, unspecified; Translations: [ANEMIA UNSPECIFIED] Onset: 12-17-2021 Episodic Deficiency and other anemia (4 sources) Iron deficiency anemia, unspecified; Translations: [IRON DEFICIENCY ANEMIA UNSPECIFIED] Onset: 11-08-2021 Episodic Fluid and electrolyte disorders (1 source) Hypokalemia; Translations: [HYPOKALEMIA] Onset: 02-19-2022 Episodic Other diseases of kidney and ureters (1 source) Hydronephrosis with renal and ureteral calculous obstruction; Translations: [HYDRONPHROS RENL AND URETRL CALCUL OBST] Onset: 01-14-2022 Episodic Other lower respiratory disease (1 source) Shortness of breath; Translations: [SHORTNESS OF BREATH] Onset: 04-05-2022 Episodic Respiratory failure; insufficiency; arrest (adult) (1 source) Acute respiratory failure with hypoxia; Translations: [ACUTE RESPIRATORY FAIL W/HYPOXIA] Onset: 02-19-2022 Episodic Urinary tract infections (4 sources) Urinary tract infection, site not specified; Translations: [UTI SITE NOT SPECIFIED] Onset: 05-20-2022 Episodic Results Test Name Value Interpretation Reference Range Facility Lab Reportson 04-29-2023 Lab Reports [id number]#1 .00TIFF [facility] Consultation Noteon 04-14-20 Consultation Note [id number]#1 .00TIFF [facility] 36on 04-08-2023 36 Please let her know her labs showed stable blood counts and kidney function. Vit b12 level was normal. Her vit d level was low at 26.3. Please send results to PCP and have her follow-up with them to discuss vit D supplementation. Her ECHO showed normal pumping function, no significant changes compared to her last ECHO. No other changes. I spoke with Dr. Tobias. We can have her go to cardiac rehab again. Otherwise follow-up with Dr. Tobias as planned. Thanks, Ericka [facility] Telephoneon 04-08-2023 Telephone [id number] Yasmeen Linder richard Lopez 1950 F Date Provider Department Center 04/08/2023 JULI SAUNDERS Ronnell Sánchez Family History Problem Relation Age of Onset Heart failure Mother Family Status - Relation Status Age at Mother Normal [facility] Office Visiton 03-18-2023 Follow-up visit [id number] Malcom Linderantonio Lopez 1950 F Date Provider Department Center 03/18/2023 JULI SAUNDERS [facility] Family History Problem Relation Age of Onset Heart failure Mother Family Status - Relation Status Age at Mother Level of Service:58462 ND OFFICE/OUTPATIENT ESTABLISHED MOD MDM 30-39 MIN Reason for Visit and Comments: Coronary Artery Disease [187] Hypertension [662106] Hyperlipidemia [182] Shortness of Breath [747450] Normal [facility] Consent for Treatmenton Consent for Treatment [id number]# 1.00TIFF [facility] Consultation Noteon 02-13-20 Consultation Note Patient: DIANN LINDER Age: 73 years Sex: Female : 1950 Associated Diagnoses: None Author: Prudencio Payan DO Chief Complaint 02/12/2023 12:33 EDT lower back pain History of Present Illness Patient is presenting with complaints of isolated low back pain that is nonradiating in nature that can be a 2/10 at present and can increase to a 7/10 in severity when exacerbated. She also has upper cervical pain as well as left elbow pain that does radiate into her left fifth digits occasionally. She feels that this pain has been going on for about 1 year and she denies any progressive strength loss or clumsiness with her hands as a result of the pain in her neck or left upper extremity. For her neck, she is actively following up with a spine surgeon to evaluate surgical options at this time. In regard to her low back, this pain is exacerbated by prolonged standing such as standing to cook clean or do the dishes and is worsened anytime she is on her feet or moving around. She denies any radiation of symptoms from her low back down her legs. She feels that the L5/S1 interlaminar epidural steroid injection on 01/21/2023 provided about 30% relief ongoing. She feels that this did provide some relief but did not alleviate all of her symptoms. LILIANE Score: 44% PHQ-2: 2 Patient denies any symptoms of progressively worsening upper/lower extremity weakness, progressively worsening gait abnormality, new onset bowel/bladder incontinence/ urinary retention, or saddle anesthesia. No new or worsening symptoms of fever, chills, night sweats. Health Status Allergies: Allergic Reactions (All) Severity Not Documented Amoxicillin- Hives. Canceled/Inactive Reactions (All) No Known Allergies, Allergies (1) Active Reaction amoxicillin Hives Current medications: Home Medications (22) Active alendronate 35 mg Tab Alphagan P 1 drop, Eye-Both, Bedtime aspirin 81 mg Oral EC Tab 81 mg = 1 tab(s), Oral, Daily biotin 1 tab(s), Oral, BID bisoprolol 10 mg Tab 10 mg = 1 tab(s), Oral, Daily calcium-vitamin D extended release 2 tab(s), Oral, qAM doxepin 10 mg Cap 10 mg = 1 cap(s), Oral, Daily furosemide 40 mg Tab 40 mg = 1 tab(s), Oral, BID gabapentin 300 mg Cap See Instructions Glucosamine Chondroitin oral capsule 1 cap, Oral, BID High Potency Probiotic oral capsule 1 cap, Oral, Daily isosorbide mononitrate 120 mg ER Tab 120 mg = 1 tab(s), Oral, qAM Klor-Con 10 1 tab, Oral, BID Delta 325 mg-5 mg oral tablet 1 tab(s), PRN, Oral, BID omeprazole 20 mg, Oral, Daily primidone 50 mg Tab 25 mg = 0.5 tab(s), Oral, BID ranolazine 1000 mg oral tablet, extended release 1,000 mg = 1 tab(s), Oral, BID sertraline 50 mg Tab 50 mg, Oral, Daily Synthroid 100 mcg, Oral, Daily tiZANidine 4 mg Tab 8 mg = 2 tab(s), Oral, Bedtime Vitamin B12 Methylcobalamin 5000 mcg sublingual tablet 5,000 mcg, SubLingual, Daily Xalatan 0.005% Soln-Opth 1 drop(s), Eye-Both, qAM , No qualifying data available Histories Past Medical History: Active Thyroid cancer (777877671) Resolved Arthritis (4148822): Resolved. Anxiety (83221016): Resolved. Trigeminal neuralgia of left side of face (29501942): Resolved. Osteopenia (481400008): Resolved. Hypotension (31935741): Resolved. Thyroid cancer (0770185367): Resolved. Carpal tunnel (023030549): Resolved. Liver disease (301389506): Resolved. Microscopic hematuria (458778703): Resolved. Family History: Hypertension Mother Primary malignant neoplasm of female genital organ Mother Heart failure Mother Arthritis Mother Hyperlipidemia Mother Procedure history: Epidural injection of lumbar spine using fluoroscopic guidance ([id number]) on 01/21/2023 at 72 Years. Comments: 02/12/2023 12:36 Ericka Duke RN L5-S1 30% relief Epidural injection of lumbar spine using fluoroscopic guidance ([id number]) on 04/30/2022 at 72 Years. Comments: 06/02/2022 12:54 Denisse Jovel RN L5/S1-50% relief ESWL - Extracorporeal shockwave lithotripsy for renal calculus (027661736) on 11/07/2021 at 71 Years. ALINA L5/S1 ([id number]) on 10/23/2021 at 71 Years. Comments: 11/21/2021 15:36 Katelynn Meng RN L5/S1 60% relief Cystoscope (71937127) on 04/29/2021 at 71 Years. Bilateral L3-L5 RFA (6063818821) on 04/10/2021 at 71 Years. Comments: 05/31/2021 12:43 Katelynn Moscoso RN L3-L5 20% relief Injection of nerve root of lumbar spine using fluoroscopic guidance (7389158436) on 05/16/2020 at 70 Years. Comments: 06/07/2020 9:51 Ericka Horton RN Bilatateral L5- 20% relief Radiofrequency ablation of medial branch of lumbar nerve using fluoroscopic guidance (4384237439) on 01/25/2020 at 69 Years. Comments: 02/23/2020 11:08 EDT - Tristan Deputy Clerk., Charline B/L S1-S3 RFA 35% relief Injection of sacroiliac joint using fluoroscopic guidance (6882376339) on 11/30/2019 at 69 Years. Comments: 12/29/2019 11:39 EDT Darrel Husdon Certifie (more content not included)... [facility] Comment on above: Result Comment: Elec tronically Signed By: Prudencio Payan DO\[employer]\Date and Time Signed: 02/12/23 13:08 EDT Office/Clinic Note-Physician on 02-12-2023 Office/Clinic Note-Physician [id number]#1 .00TIFF [facility] Patient Correspondenceon Patient Correspondence [id number]#1 .00TIFF [facility] Patient Correspondence [id number]#1 .00TIFF [facility] Patient History Officeon Patient History Office [id number]#1 .00TIFF [facility] Consent for Procedure/Surger yon 01-21-2023 Consent for Procedure/Surgery [id number]#1 .00CD:127 [facility] Consent for Treatmenton 01-09 Consent for Treatment [id number]# 1.00CD:127 [facility] Discharge Instructionson Discharge Instructions [id number]#1 .00CD:127 [facility] IntraOperative Documentson 0 01-21-2023 IntraOperative Documents [id number]#1 .00CD:127 [facility] Main OR Intraoperative Recor don 01-21-2023 Main OR Intraoperative Record IntraOp Document Type FTPM Summary Primary Physician: Prudencio Payan DO Finalized Date/Time: 01/21/23 10:51:31 Pt. Name: DIANN LINDER Taqueria/Sex: 1950 Female Med Rec #: [id number] Physician: Prudencio Payan DO Financial #: [id number] Pt. Type: O Room/Bed: / Admit/Disch: 01/21/23 09:16:42 - Institution: Case Times FTPM Entry 1 Patient Times In Room 01/21/23 10:43:00 Out Room 01/21/23 10:52:00 Procedure Times Start 01/21/23 10:46:00 Stop 01/21/23 10:51:00 Anesthesia Times Last Modified By: Mindy Jang RN 01/21/23 10:51:24 Case Attendance FTPM Entry 1 Entry 2 Entry 3 Case Attendee Prudencio Payan DO, RN, Antoinette Carreon Role Performed Surgeon - Primary Social Worker - Primary Scrub - Primary Time In 01/21/23 10:43:00 01/21/23 10:43:00 01/21/23 10:43:00 Time Out 01/21/23 10:52:00 01/21/23 10:52:00 01/21/23 10:52:00 Procedure LUMBAR EPIDURAL STEROID LUMBAR EPIDURAL STEROID LUMBAR EPIDURAL STEROID INJECTION(.) INJECTION(.) INJECTION(.) Comments Last Modified By: Suhail CUEVA, Mindy Jang RN, Mindy Molina RN 01/21/23 10:51:26 01/21/23 10:51:26 01/21/23 10:51:26 Entry 4 Entry 5 Case Attendee Ramirez CUEVA, Javier Mallory Role Performed Scrub - Relief Landscape Foreman Time In 01/21/23 10:43:00 01/21/23 10:43:00 Time Out 01/21/23 10:52:00 01/21/23 10:52:00 Procedure LUMBAR EPIDURAL STEROID LUMBAR EPIDURAL STEROID INJECTION(.) INJECTION(.) Comments Last Modified By: Suhail CUEVA, Mindy Mindy Sheppard RN 01/21/23 10:51:26 01/21/23 10:51:26 Perioperative Protocols FTPM Pre-Care Text: Implements protective measures prior to operative or invasive procedure, confirms identity before the operative or invasive procedure, verifies operative procedure, surgical site, and laterality Entry 1 Procedure(s) LUMBAR EPIDURAL STEROID Patient Identity Birthday, ID Band INJECTION(.) Verified (select at Check, Patient least 2): Participation Consents / H and P HandP, Surgery/Procedure Operative Site Present Verified Consent Marking Verified Surgical Site Yes Laterality Verified Yes Verified Procedure Verified Yes Correct Patient Yes Position Verified Availability Equipment, Medication, PreOp Antibiotic No Verified (If X-ray Given Applicable) Time Out Mindy Jang RN, Time Out Complete 01/21/23 10:43:00 Participants Antoinette Ozuna, Prudencio Payan DO, Smith RN, Ronald Salcedo Bryce Outcomes Met? Yes Last Modified By: Mindy Jang RN 01/21/23 10:46:16 Post-Care Text: The patient is free from signs and symptoms of injury caused by extraneous objects Allergy Information FTPM Pre-Care Text: Verifies allergies Entry 1 Allergies Reviewed? Yes Allergies Reviewed Self/Patient With Outcomes Met? Yes Last Modified By: Mindy Jang RN 01/21/23 10:43:00 Post-Care Text: The patient received appropriate medication(s) safely administered during the perioperative period Surgical Procedures FTPM Entry 1 Procedure Description Procedure LUMBAR EPIDURAL STEROID Modifiers . INJECTION Surgeon Description L5-S1 ALINA Primary Procedure Yes Primary Surgeon Prudencio Payan DO Start 01/21/23 10:46:00 Stop 01/21/23 10:51:00 Anesthesia Type None Surgical Service Pain Management Wound Class 1 - Clean Last Modified By: Mindy Jang RN 01/21/23 10:51:28 General Case Data FTPM Pre-Care Text: Classifies surgical wound, implements aseptic technique, initiates traffic control Entry 1 Case Information OR Pain Proc Room Case Level Level 2 Wound Class 1 - Clean Specialty Pain Management Preop Diagnosis M54.18, M48.062 Postop Same As Preop Yes Postop Diagnosis M54.18, M48.062 Outcomes Met? Yes Last Modified By: Mindy Jang RN 01/21/23 10:46:36 Post-Care Text: The patient is free from signs and symptoms of infection Skin Assessment (Pre Procedure) FTPM Pre-Care Text: Implements protective measures to prevent skin/ tissue injury due to thermal or mechanical sources Evaluates for signs and symptoms of physical injury to skin and tissue Entry 1 Skin Integrity Intact, Clyman, Warm, and Skin Abnormality No Dry Outcomes Met? Yes Last Modified By: Mindy Jang RN 01/21/23 10:43:08 Post-Care Text: The patient is free from signs and symptoms of injury caused by extraneous objects Patient Positioning FTPM Pre-Care Text: Identifies physical alterations that require additional precautions for procedure-specific positioning, verifies presence of prosthetics or corrective devices, positions the patient, evaluates the patient for signs and symptoms of injury as a result of positioning Entry 1 Procedure LUMBAR EPIDURAL STEROID Body Position Prone INJECTION(.) Feet Uncrossed? Yes Left Arm Position Resting at Side Right Arm Position Resting at Side Left Leg Position Extended Right Leg Position Extended Positioning Device Rodney (more content not included)... [facility] Main OR Preoperative Recordo n 01-21-2023 Main OR Preoperative Record Holding Area Document Type FTPM Summary Primary Physician: Prudencio Payan DO Finalized Date/Time: 01/21/23 09:56:09 Pt. Name: DIANN LINDER/Sex: 1950 Female Med Rec #: [id number] Physician: Prudencio Payan DO Financial #: [id number] Pt. Type: O Room/Bed: / Admit/Disch: 01/21/23 09:16:42 - Institution: Case Times Holding FTPM Pre-Care Text: Verifies consent for planned procedure, identifies individual values and wishes concerning care, includes family members in perioperative teaching Secures patient's records' belongings, and valuables, maintains patient's dignity and privacy, and maintains patient confidentiality Entry 1 In Holding 01/21/23 09:47:00 Outcomes Met? Yes Last Modified By: Asmita Camacho RN 01/21/23 09:55:03 Post-Care Text: The patient participates in decisions affecting his or her perioperative plan of care The patient's right to privacy is maintained Surgery Checklist FTPM Entry 1 Patient Birthday, ID Band Procedure History and Physical, Identification: Check, Patient Verification: Surgical Consent, With Participation Patient NPO after Midnight: n/a Personal Items: Glasses Complaints of Pain: Yes Pain Comment: 06/20 lower buttocks Operative Site Yes Marked By: Schuyler Marking: Does Patient Smoke No Patient states Yes Comment - Adult Shaquille- postop adult Supervision supervision available Case Cancelled in No Holding Area see comments below for reason Last Modified By: Asmita Camacho RN 01/21/23 09:56:00 Finalized By: Asmita Camacho RN Document Signatures Signed By: Asmita Camacho RN 01/21/23 09:56 [facility] Operative Reporton 3 Operative Report L5/S1 interlaminar epidural steroid injection under fluoroscopic guidance for M54.18 And M48.062. After informed consent was obtained, the patient was brought to the procedure suite and placed in the prone position. Pulse oximetry and blood pressure were monitored throughout. Low back areas prepped and draped in the usual sterile fashion. Using fluoroscopic guidance, the skin and subcutaneous tissue overlying the needle trajectory were anesthetized with 2% lidocaine. An 18-gauge Touhy needle was inserted and directed by fluoroscopy. Entry into the epidural space was confirmed using the [id number] technique and 2 cc of air. Injection of contrast revealed appropriate spread without vascular uptake. 4 mL of normal saline plus 40 mg of methylprednisolone was then injected. The needle was removed and the patient was then transferred to the cover room in stable condition. The patient tolerated the procedure well. There were no apparent complications. Follow-up: The patient will update us on the response to this procedure, and agrees to continue currently prescribed/recommende d therapies. [facility] Comment on above: Result Comment: Elec tronically Signed By: Prudencio Payan DO.br\Date and Time Signed: 01/21/23 10:52 EDT Patient Correspondenceon Patient Correspondence [id number]# 1.00CD:127 [facility] Office/Clinic Note-Physician on 01-05-2023 Office/Clinic Note-Physician [id number]# 1.00CD:127 [facility] Laboratory Outside Office Co pyon 01-02-2023 Laboratory Outside Office Copy [id number]# 1.00CD:127 [facility] Consent for Treatmenton 12-09 Consent for Treatment [id number]#1 .00CD:127 [facility] Consent for Treatment [id number]#1 .00CD:127 [facility] Consultation Noteon 12-27-19 Consultation Note Patient: DIANN LINDER Age: 72 years Sex: Female : 1950 Associated Diagnoses: None Author: Indiana Walsh PA-C Subjective Chief complaint 12/26/2022 14:00 EDT Back Pain . Patient is a 72-year-old female. She has a past medical history significant for previous cervical fusion, adjacent level stenosis, neck pain, cervical neuritis, lumbar stenosis and lumbar neuritis. She has previously seen Dr. Rodriguez. He discussed surgery with her but she is just not sure that this is something that she wants to do. She states that she has further thought about it and considered it but she has not yet made her decision. She is noticing neck pain, arm pain, numbness, tingling, weakness, balance issues, difficulty walking and overall fatigue. She is once again noticing lower back pain with bilateral buttock pain. Same as before. She underwent previous L5-S1 epidural steroid injection. This was done on 04/30/2022 and gave her 50% relief. She intermittently uses Delta 5/325 twice daily as needed pain. She tolerates this well. She is requesting a refill today. She also wonders about having another injection as she has undergone these multiple times in the past all with significant relief. Today, she rates her discomfort a 3/10. She barbosa her neck, arms, hands, lower back and buttocks. She states that it is starting to affect her ability to walk and stand. She cannot walk for more than 100 yards and cannot stand more than 10 minutes because of the back and buttock pain. Health Status Allergies: Allergic Reactions (Selected) Severity Not Documented Amoxicillin- Hives., Allergies (1) Active Reaction amoxicillin Hives Current medications: (Selected) Prescriptions Prescribed Delta 325 mg-5 mg oral tablet: 1 tab(s), Oral, BID as needed for pain for 30 day(s), 60 tab(s), Refill(s) 0, [id number], 158, cm, 12/26/22 14:12:00 EDT, Height/Length Dosing, 104.5, kg, 12/26/22 14:12:00 EDT, Weight Dosing gabapentin 300 mg Cap: See Instructions, one cap in AM, 2 caps at bedtime., # 270 cap(s), Refills(s) 0, Pharmacy: [facility], 158, cm, 09/26/22 13:04:00 EDT, Height/Length Dosing, 106.6, kg, 09/16/22 13:01:00 EDT, Weight Dosing sertraline 50 mg Tab: 50 mg, Oral, Daily, X 90 day(s), # 90 tab(s), Refills(s) 3, Pharmacy: [facility], 158, cm, 07/04/22 14:50:00 EST, Height/Length Dosing, 99, kg, 07/04/22 14:50:00 EST, Weight Dosing Documented Medications Documented Alphagan P: 1 drop, Eye-Both, Bedtime, Refill(s) 0, Other (see comment) Glucosamine Chondroitin oral capsule: 1 cap, Oral, BID, Prophylaxis High Potency Probiotic oral capsule: 1 cap, Oral, Daily, Prophylaxis Klor-Con 10: 1 tab, Oral, BID, Refills(s) 0 Synthroid: 100 mcg, Oral, Daily, Refills(s) 0, Thyroid Vitamin B12 Methylcobalamin 5000 mcg sublingual tablet: 5,000 mcg, SubLingual, Daily, Prophylaxis Xalatan 0.005% Soln-Opth: 1 drop(s), Eye-Both, qAM, 2.5 mL, Refill(s) 0, glaucoma, Other (see comment) alendronate 35 mg Tab: Refills(s) 0 aspirin 81 mg Oral EC Tab: 81 mg = 1 tab(s), Oral, Daily, Refills(s) 0, Blood Thinner biotin: = 1 tab(s), Oral, BID, Refills(s) 0, Prophylaxis bisoprolol 10 mg Tab: 10 mg = 1 tab(s), Oral, Daily, High blood pressure calcium-vitamin D extended release: 2 tab(s), Oral, qAM, Prophylaxis doxepin 10 mg Cap: 10 mg = 1 cap(s), Oral, Daily, Depression furosemide 40 mg Tab: 40 mg = 1 tab(s), Oral, BID, Refills(s) 0 isosorbide mononitrate 120 mg ER Tab: 120 mg = 1 tab(s), Oral, qAM, Refills(s) 0, High blood pressure omeprazole: 20 mg, Oral, Daily, Control of stomach acid primidone 50 mg Tab: 25 mg = 0.5 tab(s), Oral, BID, # 30 tab(s), Refills(s) 0 ranolazine 1000 mg oral tablet, extended release: 1,000 mg = 1 tab(s), Oral, BID, TAKE 1 TABLET BY MOUTH TWO TIMES A DAY tiZANidine 4 mg Tab: 8 mg = 2 tab(s), Oral, Bedtime, Refills(s) 0, Insomnia Problem list: All Problems Chronic back pain / SNOMED CT 861498658 / Confirmed Osteoarthritis / SNOMED CT 5929163415 / Confirmed Hematuria / SNOMED CT 836780447 / Confirmed Anemia / SNOMED CT 155375410 / Confirmed HTN (hypertension) / SNOMED CT 2672800267 / Confirmed Glaucoma / SNOMED CT 35651232 / Confirmed Hypothyroid / SNOMED CT 73709846 / Confirmed C. difficile diarrhea / SNOMED CT 8596834251 / Confirmed Anemia / SNOMED CT 069651618 / Confirmed Arthritis / SNOMED CT 2958511 / Confirmed Thyroid cancer / SNOMED CT 012577436 / Confirmed Heart disease / SNOMED CT 86775935 / Confirmed Hypertension / SNOMED CT 8160008901 / Confirmed Hyperlipidemia / SNOMED CT 35421289 / Confirmed Sleep apnea / SNOMED CT 461031677 / Confirmed Long-term current use of opiate analgesic drug / SNOMED CT 267531530307234 / Confirmed Added secondary to current Opioid Treatment Agreement Kidney stones / SNOMED CT 945355995 / Confirmed Renal mass / SNOMED CT 463499034 / Confirmed Abnormal kidney function / SNOMED CT 66334233 / Confirme (more content not included)... Normal [facility] Comment on above: Result Comment: Elec tronically Signed By: Indiana Walsh PA-C\.br\Date and Time Signed: 12/26/22 14:24 EDT\.br\Electronically Co-Signed By: Chad Salas MD\.br\Date and Time Co-Signed: 12/27/22 17:09 EDT In office Testingon 12-27-19 23 In office Testing [id number] .00CD:127 Normal [facility] Office/Clinic Note-Nurseon 0 12-26-2022 Office/Clinic Note-Nurse [id number]#1 .00CD:127 Normal [facility] Office/Clinic Note-Physician on 12-26-2022 Office/Clinic Note-Physician [id number]#1 .00CD:127 Normal [facility] Orders Officeon 12-26-2022 Orders Office [id number]#1 .00CD:127 Normal [facility] PERMIT TECHNICIAN Drug Screen-LCon 023 Test Name [id number] Invalid Interpretation Code [facility] Comment on above: Performed By: #### 1 [id number] #### [facility] [address] [place] [address] Patient Correspondenceon Patient Correspondence [id number] .00CD:127 Normal [facility] Patient Correspondence [id number]#1 .00CD:127 Normal [facility] Patient History Officeon Patient History Office [id number]#1 .00CD:127 Normal [facility] Reference Laboratory Testing Ordered By: Sierra Hawley on 12-26-2022 Test Name [id number] Invalid Interpretation Code [facility] SendOutsSS Consent for Treatmenton 09-08 Consent for Treatment [id number]# 1.00CD:127 Normal [facility] Consultation Noteon 09-27-19 Consultation Note Patient: DIANN LINDER Age: 72 years Sex: Female : 1950 Associated Diagnoses: None Author: Indiana Walsh PA-C Subjective Chief complaint 09/26/2022 12:47 EDT Lower back pain . Patient is a 72-year-old female. She has a past medical history significant for previous cervical fusion, adjacent level stenosis, neck pain, cervical neuritis, lumbar stenosis and lumbar neuritis. She saw Dr. Robison. Dr. Robison patient states did not want to do her surgery because he was getting ready to retire so she went and saw Dr. Rodriguez. She states that she saw Dr. Rodriguez but she just was not sure what she wants to do. She has fallen a few times and she feels that she would like to now pursue surgery. She is noticing neck pain, arm pain, numbness, tingling, weakness, balance issues, difficulty walking and overall fatigue. She underwent previous L5-S1 epidural steroid injection. This was done on 04/30/2022 and gave her 50% relief. She intermittently uses Delta 5/325 twice daily as needed pain. She tolerates this well. She would like to get a refill today if she can. She is here today for medication management. Currently she rates her discomfort a 2/10 but states that it can get worse depending on her activities. She is strongly considering doing the surgery. Health Status Allergies: Allergic Reactions (Selected) Severity Not Documented Amoxicillin- Hives., Allergies (1) Active Reaction amoxicillin Hives Current medications: (Selected) Prescriptions Prescribed Levsin 0.125 mg SL Tab: 0.125 mg = 1 tab(s), Oral, QID, PRN Spasm, # 20 tab(s), Refills(s) 0, Pharmacy: [id number], 158, cm, 10/31/21 16:20:00 EDT, Height/Length Dosing, 97.9, kg, 10/31/21 16:20:00 EDT, Weight Dosing Delta 325 mg-5 mg oral tablet: 1 tab(s), Oral, BID as needed for pain, 60 tab(s), Refill(s) 0, [facility], 158, cm, 09/26/22 13:04:00 EDT, Height/Length Dosing, 106.6, kg, 09/16/22 13:01:00 EDT, Weight Dosing gabapentin 300 mg Cap: See Instructions, 1 cap(s) Oral Qam 2 caps QHS, # 270 cap(s), Refills(s) 0, Pharmacy: [facility], 158, cm, 05/31/21 12:51:00 EST, Height/Length Dosing, 95.2, kg, 05/31/21 12:51:00 EST, Weight Dosing gabapentin 300 mg Cap: See Instructions, one cap in AM, 2 caps at bedtime., # 270 cap(s), Refills(s) 0, Pharmacy: [facility], 158, cm, 07/04/22 14:50:00 EST, Height/Length Dosing, 99, kg, 07/04/22 14:50:00 EST, Weight Dosing sertraline 50 mg Tab: 50 mg, Oral, Daily, X 90 day(s), # 90 tab(s), Refills(s) 3, Pharmacy: [facility], 158, cm, 07/04/22 14:50:00 EST, Height/Length Dosing, 99, kg, 07/04/22 14:50:00 EST, Weight Dosing Documented Medications Documented Alphagan P: 1 drop, Eye-Both, Bedtime, Refill(s) 0, Other (see comment) Fosamax 70 mg oral tablet: 70 mg = 1 tab(s), Oral, qWeek, Thursday, Refills(s) 0, Other (see comment) Glucosamine Chondroitin oral capsule: 1 cap, Oral, BID, Prophylaxis High Potency Probiotic oral capsule: 1 cap, Oral, Daily, Prophylaxis Klor-Con 10: 1 tab, Oral, BID, Refills(s) 0 Synthroid: 100 mcg, Oral, Daily, Refills(s) 0, Thyroid Vitamin B12 Methylcobalamin 5000 mcg sublingual tablet: 5,000 mcg, SubLingual, Daily, Prophylaxis Xalatan 0.005% Soln-Opth: 1 drop(s), Eye-Both, qAM, 2.5 mL, Refill(s) 0, glaucoma, Other (see comment) alendronate 35 mg Tab: Refills(s) 0 aspirin 81 mg Oral EC Tab: 81 mg = 1 tab(s), Oral, Daily, Refills(s) 0, Blood Thinner biotin: = 1 tab(s), Oral, BID, Refills(s) 0, Prophylaxis bisoprolol 10 mg Tab: 10 mg = 1 tab(s), Oral, Daily, High blood pressure calcium-vitamin D extended release: 2 tab(s), Oral, qAM, Prophylaxis doxepin 10 mg Cap: 10 mg = 1 cap(s), Oral, Daily, Depression furosemide 40 mg Tab: 40 mg = 1 tab(s), Oral, BID, Refills(s) 0 isosorbide mononitrate 120 mg ER Tab: 120 mg = 1 tab(s), Oral, qAM, Refills(s) 0, High blood pressure omeprazole: 20 mg, Oral, Daily, Control of stomach acid primidone 50 mg Tab: 25 mg = 0.5 tab(s), Oral, BID, # 30 tab(s), Refills(s) 0 ranolazine 1000 mg oral tablet, extended release: 1,000 mg = 1 tab(s), Oral, BID, TAKE 1 TABLET BY MOUTH TWO TIMES A DAY tiZANidine 4 mg Tab: 8 mg = 2 tab(s), Oral, Bedtime, Refills(s) 0, Insomnia Problem list: All Problems Chronic back pain / SNOMED CT 644247615 / Confirmed Osteoarthritis / SNOMED CT 7683817995 / Confirmed Hematuria / SNOMED CT 093301104 / Confirmed Anemia / SNOMED CT 089361605 / Confirmed HTN (hypertension) / SNOMED CT 6211790948 / Confirmed Glaucoma / SNOMED CT 83257766 / Confirmed Hypothyroid / SNOMED CT 95904452 / Confirmed C. difficile diarrhea / SNOMED CT 2041759392 / Confirmed Anemia / SNOMED CT 583484737 / Confirmed Arthritis / SNOMED CT 3281066 / Confirmed Thyroid cancer / SNOMED CT 540917787 / Confirmed Heart disease / SNOMED CT 49040133 / Confirmed Hypertension / SNOMED CT 2788780693 / Confirmed Hyperlipidemia / SNOMED CT 82835609 / Confirmed Sle (more content not included)... [facility] Comment on above: Result Comment: Elec tronically Signed By: Indiana Walsh PA-C\.br\Date and Time Signed: 09/26/22 13:15 EDT\.br\Electronically Co-Signed By: Chad Salas MD\.br\Date and Time Co-Signed: 09/29/22 22:18 EDT Office/Clinic Note-Physician on 09-26-2022 Office/Clinic Note-Physician [id number]#1 .00CD:127 [facility] Patient Correspondenceon Patient Correspondence [id number] .00CD:127 [facility] Patient Correspondence [id number]#1 .00CD:127 [facility] Patient History Officeon Patient History Office [id number]#1 .00CD:127 [facility] Ambulatory Visit Summaryon 0 09-16-2022 Ambulatory Visit Summary DIANN LINDER John :1950 Visit Date:09/16/2022 Ambulatory Visit Instructions Your Diagnosis Recurrent falls while walking Fatigue Pain Osteoarthritis BMI 40.0-44.9, adult Non-smoker Your Care Team Attending Physician - Radha Guzman Primary Care Physician - SANAZ LAKE MD This Is Your Medications List acetaminophen-hydroco done (Delta 325 mg-5 mg oral tablet) acetaminophen-hydroco done (Delta 325 mg-5 mg oral tablet) acetaminophen-hydroco done (Delta 325 mg-5 mg oral tablet) alendronate (Fosamax 70 mg oral tablet) ascorbic acid/chondroitin/gluc lio/jayson (Glucosamine Chondroitin oral capsule) aspirin (aspirin 81 mg Oral EC Tab) bifidobacterium/lacto bacillus/streptococcu s (High Potency Probiotic oral capsule) biotin bisoprolol (bisoprolol 10 mg Tab) brimonidine ophthalmic (Alphagan P) calcium-vitamin D (calcium-vitamin D extended release) doxepin (doxepin 10 mg Cap) gabapentin (gabapentin 300 mg Cap) gabapentin (gabapentin 300 mg Cap) hyoscyamine (Levsin 0.125 mg SL Tab) isosorbide mononitrate (isosorbide mononitrate 120 mg ER Tab) latanoprost ophthalmic (Xalatan 0.005% Soln-Opth) levothyroxine (Synthroid) methylcobalamin (Vitamin B12 Methylcobalamin 5000 mcg sublingual tablet) omeprazole potassium chloride (Klor-Con 10) primidone (primidone 50 mg Tab) ranolazine (ranolazine 1000 mg oral tablet, extended release) sertraline (sertraline 50 mg Tab) tizanidine (tiZANidine 4 mg Tab) Procedures Performed Epidural injection of lumbar spine using fluoroscopic guidance (04/30/2022), ESWL - Extracorporeal shockwave lithotripsy for renal calculus (11/07/2021), Epidural injection of lumbar spine using fluoroscopic guidance (10/23/2021), Cystoscope (04/29/2021), Radiofrequency ablation of medial branch of lumbar nerve using fluoroscopic guidance (04/10/2021), Injection of nerve root of lumbar spine using fluoroscopic guidance (05/16/2020), Radiofrequency ablation of medial branch of lumbar nerve using fluoroscopic guidance (01/25/2020), Injection of sacroiliac joint using fluoroscopic guidance (11/30/2019), Radiofrequency ablation of medial branch of lumbar nerve using fluoroscopic guidance (10/05/2019), Laminectomy (06/28/2019), Injection of sacroiliac joint using fluoroscopic guidance (04/27/2019), Radiofrequency ablation of medial branch of lumbar nerve using fluoroscopic guidance (03/16/2019), Injection of sacroiliac joint using fluoroscopic guidance (01/19/2019), Partial substernal thyroidectomy (12/09/2018), Injection of sacroiliac joint using fluoroscopic guidance (08/04/2018), Arthroplasty of knee (06/01/2018), Injection of sacroiliac joint using fluoroscopic guidance (01/06/2018), Radiofrequency ablation of medial branch of lumbar nerve using fluoroscopic guidance (09/16/2017), Injection of sacroiliac joint using fluoroscopic guidance (08/05/2017), Total knee arthroplasty (06/08/2017), sacroiliac joint injection (04/01/2017), Gel shots in left knee (12/09/2016), Radiofrequency ablation of medial branch of lumbar nerve using fluoroscopic guidance (11/12/2016), Radiofrequency ablation of medial branch of lumbar nerve using fluoroscopic guidance (10/29/2016), Injection of facet joint using fluoroscopic guidance (09/17/2016), Injection into facet joint of lumbar spine using fluoroscopic guidance (06/04/2016), Injection of sacroiliac joint using fluoroscopic guidance (02/27/2016), Injection of sacroiliac joint using fluoroscopic guidance (11/21/2015), Appendectomy, Arthroplasty of knee, Cholecystectomy, Hysterectomy, Injection of nerve root of lumbar spine using fluoroscopic guidance, Thyroidectomy. Discharge Vitals Heart Rate (Peripheral) 58 Blood Pressure 140/90 Height 158 cm Height 62 in Weight 106.6 kg Weight 234.52 lb BMI 42.7 Medications What How Much When Why Instructions Unchanged acetaminophen-hydroco done (Delta 325 mg-5 mg oral tablet) 1 Tablets By Mouth 2 times a day as needed for as needed for pain Unchanged acetaminophen-hydroco done (Delta 325 mg-5 mg oral tablet) 1 Tablets By Mouth 2 times a day as needed for as needed for pain Unchanged acetaminophen-hydroco done (Delta 325 mg-5 mg oral tablet) 1 Tablets By Mouth 2 times a day as needed for as needed for pain Lumbosacral spondylosis Unchanged alendronate (Fosamax 70 mg oral tablet) 1 Tablets By Mouth Every week Thursday Unchanged ascorbic acid/ chondroitin/ glucosa/ jayson (Glucosamine Chondroitin oral capsule) 1 cap By Mouth 2 times a day Unchanged aspirin (aspirin 81 mg Oral EC Tab) 1 Tablets By Mouth Every day Unchanged bifidobacterium/ lactobacillus/ streptococcus (High Potency Probiotic oral capsule) 1 cap By Mouth Every day Unchanged biotin 1 Tablets By Mouth 2 times a day Unchanged bisoprolol (bisoprolol 10 mg Tab) 1 Tablets By Mouth Every day Unchanged brimonidine ophthalmic (Alphagan P) 1 drop Both eyes At bedtime Unchanged calcium-vitamin D (calcium-vitamin D ext (more content not included)... Normal [facility] Medicine Office/Clini c Noteon 09-16-2022 Family Medicine Office/Clinic Note Chief Complaint est care, er f/u HPI Staff Patient is here for an ER follow up. Hospital:[facility] Admission date:09/12/22 Symptoms the patient presented with: Two falls within the same day. Current concerns: SOB, fatigue, numbness in hands, weight gain, weakness in legs, anxiety History of Present Illness pt presents today for ER follow up. Pt had 2 falls in one day. The second time her called EMS they took her to ER. pt states he legs just went weak and she feel to her knees and her could not get her up. Review of Systems PHQ Score Initial Depression Screen Score: 0 ROS - Provider Constitutional: no fever, no chills, no sweats, no fatigue Respiratory: no shortness of breath, no cough, no orthopnea, no wheezing. Cardiovascular: no chest pain, no palpitations, no edema. Neurologic: no headache, no dizziness, no numbness, no weakness. Physical Exam Vitals & Measurements HR: 58(Peripheral) BP: 140/90 SpO2: 95% HT: 62 in HT: 158 cm WT: 106.6 kg WT: 234.52 lb BMI: 42.7 General: alert, no acute distress ENMT: oral mucosa moist, no pharyngeal erythema or exudate Cardiovascular: regular rate and rhythm, normal peripheral perfusion Respiratory: Lungs CTA, respirations non labored Extremities: no deformity, no trauma Neurological: oriented x 4, LOC appropriate for age, CN II-XII intact, motor strength equal & normal bilaterally, speech normal Assessment/Plan 1. Recurrent falls while walking (R29.6: Repeated falls) pt presents today for follow up on recurrent falls. she fell twice the same day and was taken to ER after her called EMS for the second time in the same day. pt states her legs just went weak and she fells to her knees. She denies feeling dizzy or lightheaded. pt states she has not been as active lately since she has had multiple falls. she is followed by multiple specialists including cardiology, ENT, urology, pain, and neuro. She is up to date on lab work. 2. Fatigue (R53.83: Other fatigue) pt states she is not as active as she used to be and tires easily. discussed referral to PT and SS referral for home health care. pt refuses both. states she is supposed to be going to cardiac rehab so she will call to schedule an appointment. encouraged pt to call office if she changes her mind. 3. Pain (R52: Pain, unspecified) pt is follow by pain management for her pain 4. Osteoarthritis (M19.90: Unspecified osteoarthritis, unspecified site) PADMINI knee replacement, rods in neck 5. BMI 40.0-44.9, adult (Z68.41: Body mass index [BMI] 40.0-44.9, adult) BMI education complete 6. Non-smoker (Z78.9: Other specified health status) continue not smoking Follow-up No qualifying data available Problem List/Past Medical History Ongoing Abnormal kidney function Anemia Arthritis C. difficile diarrhea Glaucoma H/O hematuria Heart disease HTN (hypertension) Hyperlipidemia Hypertension Hypothyroid Kidney stones Long-term current use of opiate analgesic drug Renal mass Sleep apnea SOB (shortness of breath) Thyroid cancer Historical Anxiety Arthritis Carpal tunnel Hypotension Liver disease Microscopic hematuria Osteopenia Thyroid cancer Trigeminal neuralgia of left side of face Procedure/Surgical History Epidural injection of lumbar spine using fluoroscopic guidance (04/30/2022), ESWL - Extracorporeal shockwave lithotripsy for renal calculus (11/07/2021), Epidural injection of lumbar spine using fluoroscopic guidance (10/23/2021), Cystoscope (04/29/2021), Radiofrequency ablation of medial branch of lumbar nerve using fluoroscopic guidance (04/10/2021), Injection of nerve root of lumbar spine using fluoroscopic guidance (05/16/2020), Radiofrequency ablation of medial branch of lumbar nerve using fluoroscopic guidance (01/25/2020), Injection of sacroiliac joint using fluoroscopic guidance (11/30/2019), Radiofrequency ablation of medial branch of lumbar nerve using fluoroscopic guidance (10/05/2019), Laminectomy (06/28/2019), Injection of sacroiliac joint using fluoroscopic guidance (04/27/2019), Radiofrequency ablation of medial branch of lumbar nerve using fluoroscopic guidance (03/16/2019), Injection of sacroiliac joint using fluoroscopic guidance (01/19/2019), Partial substernal thyroidectomy (12/09/2018), Injection of sacroiliac joint using fluoroscopic guidance (08/04/2018), Arthroplasty of knee (06/01/2018), Injection of sacroiliac joint using fluoroscopic guidance (01/06/2018), Radiofrequency ablation of medial branch of lumbar nerve using fluoroscopic guidance (09/16/2017), Injection of sacroiliac joint using fluoroscopic guidance (08/05/2017), Total knee arthroplasty (06/08/2017), sacroiliac joint injection (04/01/2017), Gel shots in left knee (12/09/2016), Radiofrequency ablation of medial branch of lumbar nerve using fluoroscopic guidance (11/12/2016), Radiofrequency ablation of medial branch of lumbar nerve using fluoroscopic guidance (10/29/2016), Injection of facet (more content not included)... Normal [facility] Comment on above: Result Comment: Elec tronically Signed By: Radha Guzman\.br\Date and Time Signed: 09/16/22 13:30 EDT ED Note-Physicianon 09-16-19 ED Note-Physician [id number] .00CD:127 Normal [facility] BNPon 09-12-2022 Natriuretic peptide B (Bld) [Mass/Vol] 136.0 pg/mL Normal <=900.0 [facility] Comment on above: Performed By: #### C VDAGS #### [facility] [address] [place] [address] Dr. Sherry Sanches CBC AUTO DIFFon 09-12-2022 BASO # 0.0 103/ul Normal 0.0-0.1 [facility] Comment on above: Performed By: #### C BC #### [facility] [address] [place] [address] Dr. Sherry Sanches Basophils/100 WBC (Bld) 0.6 % Normal 0.2-2.0 [facility] Comment on above: Performed By: #### C BC #### [facility] [address] [place] [address] Dr. Sherry Sanches EO # 0.1 103/ul Normal 0.0-0.7 [facility] Comment on above: Performed By: #### C BC #### [facility] [address] [place] [address] Dr. Sherry Sanches Eosinophils/100 WBC (Bld) 2.2 % Normal 0.9-7.0 [facility] Comment on above: Performed By: #### C BC #### [facility] [address] [place] [address] Dr. Sherry Sanches Erythrocyte distribution width (RBC) [Ratio] 12.9 % Normal 11.0-15.0 [facility] Comment on above: Performed By: #### C BC #### [facility] [address] [place] [address] Dr. Sherry Sanches Hematocrit (Bld) [Volume fraction] 35.9 % Critically low 36.0-48.0 [facility] Comment on above: Performed By: #### C BC #### [facility] [address] [place] [address] Dr. Sherry Sanches Hemoglobin (Bld) [Mass/Vol] 11.8 g/dL Critically low 12.0-16.0 [facility] Comment on above: Performed By: #### C BC #### [facility] [address] [place] [address] Dr. Sherry Sanches IG # 0.04 10e3/ul Critically high 0.00-0.03 [facility] Comment on above: Performed By: #### C BC #### [facility] [address] [place] [address] Dr. Sherry Sanches IG % 0.6 % Critically high 0.0-0.5 [facility] Comment on above: Performed By: #### C BC #### [facility] [address] [place] [address] Dr. Sherry Sanches LYMPH # 0.9 103/ul Critically low 1.2-3.8 [facility] Comment on above: Performed By: #### C BC #### [facility] [address] [place] [address] Dr. Sherry Sanches Lymphocytes/100 WBC (Bld) 13.5 % Critically low 20.5-60.0 [facility] Comment on above: Performed By: #### C BC #### [facility] [address] [place] [address] Dr. Sherry Sanches MANUAL DIFF REQ NO Normal [facility] Comment on above: Performed By: #### C BC #### [facility] [address] [place] [address] Dr. Sherry Sanches MCH (RBC) [Entitic mass] 31.6 pg Normal 26.7-34.0 [facility] Comment on above: Performed By: #### C BC #### [facility] [address] [place] [address] Dr. Sherry Sanches MCHC (RBC) [Mass/Vol] 32.9 g/dL Normal 29.9-35.2 [facility] Comment on above: Performed By: #### C BC #### [facility] [address] [place] [address] Dr. Sherry Sanches MCV (RBC) [Entitic vol] 96.2 fL Normal 81.0-99.0 [facility] Comment on above: Performed By: #### C BC #### [facility] [address] [place] [address] Dr. Sherry Sanches MONO # 0.6 103/ul Normal 0.3-0.8 [facility] Comment on above: Performed By: #### C BC #### [facility] [address] [place] [address] Dr. Sherry Sanches Monocytes/100 WBC (Bld) 9.9 % Normal 1.7-12.0 [facility] Comment on above: Performed By: #### C BC #### [facility] [address] [place] [address] Dr. Sherry Sanches NEUT # 4.6 103/ul Normal 1.4-6.5 [facility] Comment on above: Performed By: #### C BC #### [facility] [address] [place] [address] Dr. Sherry Sanches Neutrophils/100 WBC (Bld) 73.2 % Normal 43.0-75.0 [facility] Comment on above: Performed By: #### C BC #### [facility] [address] [place] [address] Dr. Sherry Sanches Platelet mean volume (Bld) [Entitic vol] 9.1 fL Critically low 9.5-13.5 [facility] Comment on above: Performed By: #### C BC #### [facility] [address] [place] [address] Dr. Sherry Sanches PLT 220 103/ul Normal 150-450 [facility] Comment on above: Performed By: #### C BC #### [facility] [address] [place] [address] Dr. Sherry Sanches RBC 3.73 106/ul Critically low 4.20-5.40 [facility] Comment on above: Performed By: #### C BC #### [facility] [address] [place] [address] Dr. Sherry Sanches WBC 6.3 103/ul Normal 4.0-11.0 [facility] Comment on above: Performed By: #### C BC #### [facility] [address] [place] [address] Dr. Sherry Sanches CPKon 09-12-2022 CK [Catalytic activity/Vol] 84 U/L Normal 26-192 [facility] Comment on above: Performed By: #### C BC #### [facility] [address] [place] [address] HEAD WO CONon 09-12-2022 CT HEAD WO CON EXAMINATION: CT HEAD WO CON HISTORY: WEAKNESS . The patient fell twice today. COMPARISON: None. TECHNIQUE: CT examination of the head without IV contrast. Sagittal and coronal reconstructions were obtained. Dose reduction techniques were achieved by using automated exposure control and/or adjustment of mA and/or kV according to patient size and/or use of iterative reconstruction technique. FINDINGS: The ventricles are not enlarged, the lateral ventricles are symmetric and the third ventricles in the midline. The sylvian fissures and cortical sulci are borderline enlarged. There is no evidence of an intracranial hemorrhage, mass lesion or apparent acute infarct. Prominent diminished attenuation is seen in the deep white matter. The cerebellum and visualized brainstem are intact. The visualized paranasal sinuses are clear. The middle ears are aerated. The mastoid sinuses are clear. There is no apparent acute skull fracture. IMPRESSION: There is no evidence of an intracranial hemorrhage, mass lesion or apparent acute infarct. Diffuse atrophy is present. Rather prominent patchy diminished attenuation is seen in the deep white matter, presumably related to early small vessel ischemic change in a patient of this age. The visualized paranasal sinuses are clear and there is no apparent acute skull fracture. Direct comparison with a previous study is recommended to verify stability of these findings. If the patient's symptoms persist and further evaluation is clinically indicated, perhaps an MRI study of the brain would be helpful. Electronically authenticated by: MAURICE DAILY Date: 2022-09-12 16:26 Normal [facility]on SARS-CoV-2 (COVID-19) RNA GABE+probe Ql (Unsp spec) Not detected Normal NOT DETECTED [facility] Comment on above: Result Comment: This test is not yet approved or cleared by the [place] FDA. When there are no FDA-approved or cleared tests available, and other criteria are met, FDA can make tests available under an emergency access mechanism called an Emergency Use Authorization (EUA). The EUA for this test is supported by the [place] of Health and Human Service's (HHS's) declaration that circumstances exist to justify the emergency use of in vitro diagnostics for the detection and/or diagnosis of the virus that causes COVID-19. This EUA will remain in effect (meaning this test can be used) for the duration of the COVID-19 declaration justifying emergency of IVDs, unless it is terminated or revoked by FDA (after which the test may no longer be used). When diagnostic testing is negative, the possibility of a false negative should be considered in the context of a patient's recent exposures and the presence of clinical signs and symptoms consistent with SARS-CoV-2. Performed By: #### C VDAGS #### [facility] [address] [address] [address] Sherry Sanches ER URINE PROFILEon 3 Bilirubin Ql (U) Negative Normal NEGATIVE [facility] Comment on above: Performed By: #### Donaldo RAMIREZ UMICRO #### [facility] [address] [place] [address] Dr. Sherry Sanches Clarity (U) CLEAR Normal CLEAR [facility] Comment on above: Performed By: #### Donaldo RAMIREZ UMICRO #### [facility] [address] [place] [address] Dr. Sherry Sanches Color (U) LT. YELLOW Normal YELLOW [facility] Comment on above: Performed By: #### Donaldo RAMIREZ UMICRO #### [facility] [address] [place] [address] Dr. Sherry Sanches ERUAHJohn A micrscopic examination will be performed if indicated. Normal [facility] Comment on above: Performed By: #### Donaldo RAMIREZ UMICRO #### [facility] [address] [place] [address] Dr. Sherry Sanches Glucose Ql (U) Negative Normal NEGATIVE [facility] Comment on above: Performed By: #### Donaldo RAMIREZ UMICRO #### [facility] [address] [place] [address] Dr. Sherry Sanches Hemoglobin Ql (U) MODERATE Abnormal NEGATIVE [facility] Comment on above: Performed By: #### Donaldo RAMIREZ UMICRO #### [facility] [address] [place] [address] Dr. Sherry Sanches Ketones Ql (U) Negative Normal NEGATIVE [facility] Comment on above: Performed By: #### Donaldo RAMIREZ UMICRO #### [facility] [address] [place] [address] Dr. Sherry Sanches LEUKOCYTES Negative Normal NEGATIVE [facility] Comment on above: Performed By: #### Donaldo RAMIREZ UMICRO #### [facility] [address] [place] [address] Dr. Sherry Sanches Nitrite Ql (U) Negative Normal NEGATIVE [facility] Comment on above: Performed By: #### Donaldo RAMIREZ UMICRO #### [facility] [address] [place] [address] Dr. Sherry Sanches pH (U) 5.0 [pH] Normal 5-9 [facility] Comment on above: Performed By: #### DAMIEN FOWLER #### [facility] [address] [place] [address] Dr. Sherry Sanches SPEC GRAVITY 1.020 Normal 1.005-<=1.02 5 [facility] Comment on above: Performed By: #### MARY JO FOWLERRO #### [facility] [address] [place] [address] Dr. Sherry Sanches UA PROTEIN Negative Normal NEGATIVE/ TRACE [facility] Comment on above: Performed By: #### DAMIEN FOWLER #### [facility] [address] [place] [address] Dr. Sherry Sanches UR MICRO IND INDICATED Normal [facility] Comment on above: Performed By: #### DAMIEN FOWLER #### [facility] [address] [place] [address] Dr. Sherry Sanches Urobilinogen Qn (U) 0.2 {Ellen'U}/dL Normal 0.2 - 1. 0 [facility] Comment on above: Performed By: #### DAMIEN FOWLER #### [facility] [address] [place] [address] Dr. Sherry Sanches LIPASEon 09-12-2022 Lipase [Catalytic activity/Vol] 125.0 U/L Normal 73.0-393.0 [facility] Comment on above: Performed By: #### C BC #### [facility] [address] [place] [address] Dr. Sherry Sanches PROF 14(COMP METB)on 023 Albumin [Mass/Vol] 3.7 g/dL Normal 3.4-5.0 [facility] Comment on above: Performed By: #### C BC #### [facility] [address] [place] [address] Dr. Sherry Sanches Albumin/Globulin [Mass ratio] 1.1 {ratio} Normal [facility] Comment on above: Performed By: #### C BC #### [facility] [address] [place] [address] Dr. Sherry Sanches ALP [Catalytic activity/Vol] 104 U/L Normal 46-116 [facility] Comment on above: Performed By: #### C BC #### [facility] [address] [place] [address] Dr. Sherry Sanches ALT [Catalytic activity/Vol] 19 U/L Normal 14-59 [facility] Comment on above: Performed By: #### C BC #### [facility] [address] [place] [address] Dr. Sherry Sanches Anion gap [Moles/Vol] 11.1 mmol/L Normal [facility] Comment on above: Performed By: #### C BC #### [facility] [address] [place] [address] Dr. Sherry Sanches AST [Catalytic activity/Vol] 15 U/L Normal 15-37 [facility] Comment on above: Performed By: #### C BC #### [facility] [address] [place] [address] Dr. Sherry Sanches Bilirubin [Mass/Vol] 0.5 mg/dL Normal 0.2-1.0 [facility] Comment on above: Performed By: #### C BC #### [facility] [address] [place] [address] Dr. Sherry Sanches Calcium [Mass/Vol] 8.9 mg/dL Normal 8.5-10.1 [facility] Comment on above: Performed By: #### C BC #### [facility] [address] [place] [address] Dr. Sherry Sanches Chloride [Moles/Vol] 104 mmol/L Normal 98-107 [facility] Comment on above: Performed By: #### C BC #### [facility] [address] [place] [address] Dr. Sherry Sanches CO2 [Moles/Vol] 29.7 mmol/L Normal 21.0-32.0 [facility] Comment on above: Performed By: #### C BC #### [facility] [address] [place] [address] Dr. Sherry Sanches Creatinine [Mass/Vol] 1.29 mg/dL Critically high 0.55-1.02 [facility] Comment on above: Performed By: #### C BC #### [facility] [address] [address] [address] Sherry Sanches EGFR-AF PALESTINIAN 49 mL/min/1.73m2 Critically low >=60 [facility] Comment on above: Performed By: #### C BC #### [facility] [address] [address] [address] Sherry Sanches EGFR-NON AF PALESTINIAN 41 mL/min/1.73m2 Critically low >=60 [facility] Comment on above: Performed By: #### C BC #### [facility] [address] [address] [address] Sherry Sanches Globulin (S) [Mass/Vol] 3.4 g/dL Normal [facility] Comment on above: Performed By: #### C BC #### [facility] [address] [address] [address] Sherry Sanches Glucose [Mass/Vol] 126 mg/dL Critically high 74-106 [facility] Comment on above: Performed By: #### C BC #### [facility] [address] [place] [address] Dr. Sherry Sanches Potassium [Moles/Vol] 3.8 mmol/L Normal 3.5-5.1 [facility] Comment on above: Performed By: #### C BC #### [facility] [address] [place] [address] Dr. Sherry Sanches Protein [Mass/Vol] 7.1 g/dL Normal 6.4-8.2 [facility] Comment on above: Performed By: #### C BC #### [facility] [address] [address] [address] Sherry Sanches Sodium [Moles/Vol] 141 mmol/L Normal 136-145 [facility] Comment on above: Performed By: #### C BC #### [facility] [address] [address] [address] Sherry Sanches Urea nitrogen [Mass/Vol] 17.0 mg/dL Normal 7.0-18.0 [facility] Comment on above: Performed By: #### C BC #### [facility] [address] [place] [address] Dr. Sherry Sanches Urea nitrogen/Creatinine [Mass ratio] 13.2 mg/mg Normal [facility] Comment on above: Performed By: #### C BC #### [facility] [address] [place] [address] Dr. Sherry Sanches SYMPTOMATIC COVID-19 ANTIGEN on 09-12-2022 EUA Statement SEE BELOW Normal [facility] Comment on above: Result Comment: This test has not been FDA cleared or approved, but has been authorized by the FDA under an Emergency Use Authorization (EUA) for use by authorized laboratories certified under CLIA that meet the requirements to perform moderate or high complexity testing. This test has been authorized only for the detection of proteins from SARS-CoV-2, not for any other viruses or pathogens. The emergency use of this test is authorized for the duration of the declaration that circumstances exist justifying the authorization of emergency use of in vitro diagnostic tests for detection and/or diagnosis of Covid-19 under section 564(b)(1) of the Act, 21 U.S.C. 360bbb-3(b)(1), unless the declaration is terminated or authorization is revoked sooner. Performed By: #### C VDAGS #### [facility] [address] [place] [address] Dr. Sherry Sanches SARS-CoV-2 (COVID-19) RNA GABE+probe Ql (Unsp spec) Negative Normal NEGATIVE [facility] Comment on above: Performed By: #### C VDAGS #### [facility] [address] [place] [address] Dr. Sherry Sanches TROPONIN, HIGH SENSITIVITYon 09-12-2022 HSTROP 5.9 pg/mL Normal 4.0-51.3 [facility] Comment on above: Result Comment: CUT- OFF POINTS HAVE BEEN ESTABLISHED BASED ON THE FOURTH UNIVERSAL DEFINITIONS OF MYOCARDIAL INFARCTION. THE UPPER REFERENCE LIMIT (URL) OF TROPONIN, DEFINED THE 99TH PERCENTILE OF cTnI DISTRIBUTION IN A REFERENCE POPULATION, HAS BEEN CONFIRMED THE DECISION THRESHOLD FOR VT DIAGNOSIS. Performed By: #### H STROPN #### [facility] [address] [address] [address] Sherry Sanches HSTROP 5.0 pg/mL Normal 4.0-51.3 [facility] Comment on above: Result Comment: CUT- OFF POINTS HAVE BEEN ESTABLISHED BASED ON THE FOURTH UNIVERSAL DEFINITIONS OF MYOCARDIAL INFARCTION. THE UPPER REFERENCE LIMIT (URL) OF TROPONIN, DEFINED THE 99TH PERCENTILE OF cTnI DISTRIBUTION IN A REFERENCE POPULATION, HAS BEEN CONFIRMED THE DECISION THRESHOLD FOR VT DIAGNOSIS. Performed By: #### C VDAGS #### [facility] [address] [address] [address] Sherry Sanches URINE MICROSCOPIC ONLYon BACTERIA TRACE Abnormal NONE SEEN [facility] Comment on above: Performed By: #### Donaldo RAMIREZ UMICRO ####[facility] [id number] [address]. Sherry Sanches Bacteria identified Cx Nom (U) NOT INDICATED Normal [facility] Comment on above: Performed By: #### Donaldo RAMIREZ UMICRO ####[facility] [id number] [address]Dr. Sherry Sanches CAST NONE SEEN Normal NONE SEEN [facility] Comment on above: Performed By: #### Donaldo RAMIREZ UMICRO ####[facility] [id number] [address]Dr. Sherry Sanches Crystals LM Nom (Urine sed) NONE SEEN Normal NONE SEEN [facility] Comment on above: Performed By: #### Donaldo RAMIREZ UMICRO ####[facility] [id number] [address]Dr. Sherry Sanches Epithelial cells LM Ql (Urine sed) FEW Abnormal NONE SEEN /RARE [facility] Comment on above: Performed By: #### Donaldo RAMIREZ UMICRO ####[facility] [id number] [address]DrBita Sanches MUCOUS TRACE Abnormal NONE SEEN [facility] Comment on above: Performed By: #### Donaldo RAMIREZ UMICRO ####[facility] [id number] [place], [place] [address]Vj. Sherry Sanches RBC 10-20 Abnormal 0-2 [facility] Comment on above: Performed By: #### DAMIEN FOWLER ####[facility] [id number] [place], [place] [address]Aq. Sherry Sanches WBC 0-2 Abnormal NONE SEEN [facility] Comment on above: Performed By: #### DAMIEN FOWLER ####[facility] [id number] [place], [place] [address]Dh. Sherry Sanches XR CHEST 1 Von 09-12-2022 XR CHEST 1 V EXAMINATION: XR CHES T 1 V HISTORY: Weakness COMPARISON: Portable chest 02/13/2022 TECHNIQUE: Portable chest FINDINGS: The lung parenchyma is free of consolidation or infiltrate. No pneumothorax or pleural effusion. The cardiac, mediastinal and hilar contours are normal. The visualized osseous structures exhibit no gross abnormality. Patient's posterior cervical hardware exhibits no gross visualized abnormality. IMPRESSION: No acute cardiopulmonary abnormality. Electronically authenticated by: LONNIE FIERRO Date: 2022-09-12 16:25 Normal 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 She understands adjacent segment issues with instability likely will not get better. I gave her the Risks of Cervical Surgery Form, the Generalities, Expectations and Home Instructions Form and names of surgeons in the area that I trust. She can call the office and schedule surgery or follow up every 4-6 months. Normal [facility] Progress Noteson 08-05-2022 Front End Manager Authentication Interface Message Text Patient was identified by name and date of . Charline Velazquez RN Patient at risk for falls:Yes Falls Risk protocol implemented: Yes Ambulates with cane Charline Velazquez RN Normal [facility] Outside Records Officeon Outside Records Office [id number]# 1.00CD:127 Normal [facility] Coding Summary.on 07-31-2022 Coding Summary. CD:[id number] W w+PGhlYWQ+CF3SCSTnW87 ocPVasO6fA8YYOXpJZncp MOWGGKqAFqZszkQaID1rk XNjZXJu IC8+OW6wOPHdLmmpjSUbt 5L5oKR6P08ocb6uJBpznC I5SXTpXnJittawi7bgqAb 6IDcuNmluOyBt ACHyhD24SSL9kL19Kb91c BGalVPfk9oivJq3OvLlWH FbTMC6zEpqXYjji7ZfKSO kA80hnBWhj8Q9 RGXijCsjzIOhOkUpnDX5b O3rVDuatyzgr7waleifEv e6qv43rDLjz6C0tRX6O7N pzpC2DBRauWAp NwrujQBPcZ4krmgvo7jcs inoBlIbQLYvCKr2JZz2WS CopMmcEsHkUP19XBW5UYD xgiToX5YkJZJv eVczKkS9l8N3Ws0XK8URI iwrS6LHYKYNKDkrdYC+PC 51sp22N0EfOgdxEcx7XIL nJXQ4gAV1hN6c KQXsMYqtg3X6kBL1I3Anh uEqyz3pp1npQCZeLWmvI3 2ueZFif1M2OBAoaPJ6OJA zbTpsAeYirP68 Oyc+LZYgsVcxk4EvLperw 9jtj9lokYy9DjjdYOIeoy YqwOtrCXT0j1EvPo6rKJG yxQG8uLL6oD5p QdPeCtO3HEyhG965ClAhb VFgEytiL91wK7LhzSO+PH IzUix3EIMaiLjoXG7oC4I hZGRpbmctbGVm tRlgHE6rZZZsdhfzXUYal L8pYIWcN5v6HsFrAgC0TM qnF4YnWODzsakbZs01wC8 uStUvIwZ3VKzt P1RuyfU4BFSlgCIvHYceF CR9E85er2C2KDKjBBUvWU L9xAT7iB4miQspafktsDT mdDsgdmVydGlj UUawGTmhC797TXZqaMkoT kNvZGluZyBEYXRlOiAgMD MvMjMvMjAyMzwvdGQ+PHR yOCD9lXijGUXy dPYwJCqjMd4ngYkrcXnkF K6uYEPnqeylDBYvvW8sPA UfbBMaeAbuWK1jNPDhehh zf330DdSaNWJ8 MNQlmFJuZ4PkzL4pMsUjZ JZuKCMuB9OuyGVoMRtkF1 04UQmnJfQ7XYCzxlVrZ3B sLWFsaWduOiB0 m0I5Ro7Lx6WlthdcA8Cae FIfWfIvHgudCTq5N4NuIw wvdHI+XS97RCBmYJ68ZYc 6BYI1hQjqFTig OWCsD2JvfR1zYaOnPRHhI GRkOyc+PHRhYmxlIHdpZH RoPScxMDAlJyBzdHlsZT0 bKv7kCUYrRFRw sZeqtSFvIfUct0jnFVNeN McaEH3uyLfdB0IojJR4NE Hrc2b8Ib38Z98dZ9AfdPB +DPSkuEK6yWA8 nG1uGkHrQcV4AIhfN637T iMtqUXjMlszu5dvh6ujmP o8NgB7MWJmlmJhpKkuMJH 0p0MuPr60X85p IHdpZHRoPSIxNSUiIHZhb Ejomk5dvE2wYn1+PGNvbC I8hZQ5bH7jOcZuSsM6JFc xH504UnScpMXg Kuvyv2wti0gkzDi8KxKeN XGdfmTkcDseUXA5j9AaPm 98H6OzzRrgy5HxRxs7eo1 1jFBlk8R0bAI3 E8SpPYYoggjunMVjuWixU K8dLJIaervqYMSqwR5lVC VoB8h7EeEjJgN3ZZfuM7B zmiV4MKWapGMh RVKroOJKtD4telxua5tcz vefXmTfVSGtHXs4TFd4PB YyuFlxRcHhUCY4LuL3TLB 6hYJocQ9dnOam pfnrjK1rXxj+IBR9yHNsg NIBCB9kSjojeGZ+PHRkIH I0sVxdMFctEBYhuJ8iPAI pP5g5IiMoPyW9 CHmrZ4JkwnU5RWTomQBuR KIenDOWyQ4njonvg4egcz qiQmDwHSSvWZz9FUy0VDN saWduOiBsZWZ0 OgQ4ONM1qVVxwC1esWcgc tpmnF5gNnl+QmlydGggRG A9MEx6Y1QeKee7YUMfjJi yCR9eaMLqGAwz Gb4vnPiidBhdYU4oCAPos fjik984SoGdr1pwJPSycL WcSAlcHFJ8Y72af3M3CHJ nXAFvZMD1jSK6 cD1xsLyszqkiqCQfsDtol aUzoRxhFGqsRJyrC998HP KfnXkuAbCmVRy2W3VfRbv 3XXNbhVgjTX0o pQNcNOwcEf3zpWutxEpeH J2wKHKxyhhzf315GtLtq6 wsARRglVAiJYkmEPA1B69 ov5O2FHSsLNTc PXX5pXJ6zI8zaGhuiodsx GVmdDsgdmVydGljYWwtYW mmO835SNJstXetVwIlpSu 1I6UjIbn0LVIl mAgrIF1rjQNpYXjeVo1sw JsptRzvNK9qMFRcqnysu2 46GgNwh6lpRTYsgKUuLKe qHFO1M77cs8Y2 OMZzNIFmWDP0kKC7xN9xm GlnbjogbGVmdDsgdmVydG vyOWshXIzmB538HTKntTy nPlBhdGllbnQg IIlzBTf1B2EjWtlqkOY+P M72WGSeER44iWMuwHLne9 mdcXr6HdAkYPFaKQU1qSa zFGzql2NgBDTj Y83evFPii2O2TFFzmZkpj CQwSoRkzWB9rZ9gNHqlqb kfq7ifevctSpnvz8hkxb4 8cP53N93qNGtd ZHRoPSIzMCUiIHZhbGlnb k0wfZ4sXr4+TGKfvRT7vJ Q0eK9lYAQxOsE4GMauB30 9InRvcCIvPjxj h2eer8astWh3UnR9RIGon lMxxMpyMEW8x0BjRo66S6 9sIHdpZHRoPSIyMCUiIHZ hpWaona5qjQ4l Ii8+ABEboTH0bDX4zP1aC tVgLhZ8QOysH511SuUxmM FgFfxkP76hS3MqkLT+PHR vZje5LRNkhPcc AX1fgFIlKWgpWe3nNJM0A eDgQoElBJdwC5NjFTDbux ewirnmwZS3VHXzXTBrvI7 5Sf1poDmlIANp mXUZhW6caehba7aplatvH dMcIPReHRn1SNt5EWLetM ckSgOpNHV0PvC5WOF1eJY xuB5fjGknduou sT8gW6VgSOVmjikkQp15v X4nFiRkIpX3VCdkJxv+V0 VMTFMsIFNIRVJSWSBEPC9 9EC18cHUdp5G8 aTG9K7BnSZNycgmmtjpco ZW7ATBlOPYvyO39fDCdCS stGq2ms5Q2c406MMOqGFW amD23Qz3ffSuq TCXtyBZMcR9kpdgkl4mgt rbaVqKxFLLyFYp8NHa7AW LxgLfwRrUiDVJ2KaO4KMJ 9eZAqxU8euHhn nhssoR1qCgw+MDkvMjIvM Ow0FQpqvLD+DKZwVKF6kL hgKCjkYZUxvY6aVBVaI2l 5BhYnToI9TXfs D4PnTBHygdloVi53wD1gU gHbIsY2DJhbT1YiquN6FF UdjSLlFQeuMLI9L32lb9M 9CSBrQYMsLZP1 bTA9vX3qlMdnoeoubYRam DsgdmVydGljYWwtYWxpZ2 46IHRvcDsnPjcyIFllYXJ hTK99JZ59oCVd s4X4iMR0T1KoPOByareoy undnGD5NPEdSJAnnD62iD YhQZvrZa5kb5J8m888JJZ yWZOdpZ59Dz6u mYozNUFyjHRIvM8ifjykq 3rpkxlbWrLpBJVjLBk2OJ o2UHAilTtqCySwXIY2MdW 4FHD8cXQtoU9t nXdweiatbK1kPbv+RmVtY YwnYE14GO66nYFpv2Y7vS H9L3FmNQZzmxwxsafxlJN 2JSKxWGJgcF99 yERdXHveIj6dq2G5m667W BKeBRWayH52Ec6euMlnAM QqbZUUeG3ejftou0qbbrs gIzAwMDAwMDt0 EJc4TSUypMeaKqNnZUC9U mB0AWT0uQAkdY2ooUkqpk szuJ4pDco+K2H5gHA9zWW udDwvdGQ+PC90 it51F5OvYbpcYry6VEYmL LI1qVB7dS1yPXNkUKylz8 B3sNP7R5WqacHbwk8nh3f hOKHoICdjS11r eHVre2Z2OYZbsZF1TYHhg UliMrSlaU55Uor+PGNvbG zly1DeSplpw0wcz1fnvTu 9IjMwJSIgdmFs bYppUUN3q6BuVe36J10hC HdpZHRoPSIzMCUiIHZhbG ixga5glT6tZd9+PGNvbCB 5qUD0tC6dWaEz IwD0JLcqE333PfFfeFSuM ojhm0oay0ltpOs0GgKuYA KtsiOibNejBFF2c2QpMv4 3J2FlpImtu0Ps Ivx2zb07oSQui3J1zGU2C 3BhZGRpbmctbGVmdDogMC 5oVVLdbvspPUPveQ5iCMM jO2v7NeAqIkO6 XFbmI0OkhgU9IWZzkYTgR CUdzTWSlK7aoojom4juwx xkDnPjWSDaWNt4RVs4TMA saWduOiBsZWZ0 BwY9ENY7yQStjY6qzGzaq xftoM4mUbz+PLm3s9oafW MuLA2mvWB6BI83MG80gXC qa8R5wHA2C6No LQWxxmwutnudqEN3TTGqV QKcwJ41Zw3obGzuYe9xBU SrLWL3VUEfeRYqL7CanO3 yOiAjMDAwMDAw S1UdiXCgEXljV884LZmrU qB7QFPfnuGnE8UeEDMifQ heLnE9u1D0Lp5OUX62BQ0 6OP68xYDok9O3 jAY9F0SzAOBlfbtddrxnh JL5SBGyESRpyU07Uq9vmC oaUl6yMIKaOAK7VCHobAY zB6GpvB9jYrFu EHZzRTFfY6LorSJyPVscV 174IAtbOcD2AYRpzrGgR6 VmUWNpyJwiAxK2k7B1Vi6 GOv82LZ15WS98 xKIkx1U3pPB6V2SmJGDyn utacqnziRV6UNLdTJGziA 02Tz2jiNhqIa4iAVJfNZE 1JKAqgOZgU4Oy gP6qUhDxRLHcNOHlQ2Xod EUbBUocW462GLkmVxX0HK MqayZpT2XjCTSjzDvyUyV 3j0S2Wc3KBDpk acx7I9GpVyjmlHG+PC90Y WSmZV56cFUhaIAfd3qfdC i2FwSiMWTlKEY5qMbtMAn rz1MgPWSaR85n aJWul9I1 (more content not included)... Normal [facility] Physician Orderon 07-31-2022 Physician Order [id number]#1 .00CD:127 Normal [facility] Laboratory Outside Office Co pyon 07-11-2022 Laboratory Outside Office Copy [id number]# 1.00CD:127 Normal [facility] Coding Summary.on 07-09-2022 Coding Summary. CD:[id number] G h0bWw+PGhlYWQ+FI2LJAR iC60anTInsL5IR5oVAZ6W VVFBADWDIO8PYX7hhOH5B NzhH1JjnuYg IgqvfOViKX09YHp3LFA7j SjxBQgngD1kjUTlB1d8Ec KxZR91aL85RTebCGQoHlR 3LjZpbjsgbWFy L4gbQwSgaTMfGxm+PHRhY mxlIHdpZHRoPScxMDAlJy WfxXrsCK7eYr1lFDVsRXB vbGxhcHNlOiBj z4gtHKXfQUwzWN8nfTrbO 4EqrQY8QYCva9p8Ml58iD I+BAYsJFY9cHeqIDxkc97 6NaJnd2vsQOA6 jNVrIGeeLPE5Z24vn2V1O MNnXKJcRNM3jLO1pE6rsK ynyowrJ5VoxQVwWsY6JXS 6xLDnfS3oeWvm dgmtjH4eSfp+R26CEP5QY AIGFJ1QNnf0G4MkLeicoJ I+UY81BMKoPL01vNBwpHP xg1gfqJv1LkTr FGPaPJM2tJwmTCceb0KbT BYtK97vmIXco4M3DQPclT qqaAGtGnHkpSF5iW2xMDt ezplpo2asoacq Byueg3jscv84kU39G03oV WfvSLEvYKP3BMMvQEHiaK qtdf4yjR4uBh2+UFynv3a sn6ilbDn2NbRy GHGonzLrrObgKRK9u8FiU w85W6UtxYjkj5LuHdh6nm 23qMMxe8K8kHR9LHbaIFE ilD5fHSepZdJ1 YEWtJcXplD82jZUdMHyqK q9wmFtziFfrMG1pJDWuho vmKRDrwE0zUUJzmANntBy vSM6nQMJuqyqw f203DoEdVLS1MVStnLClZ 6WeiA8tCcHoSFJnOLMvG8 EpoOWeTBtvL391VWovQcU 6ZZChgjRzD9Hd TBHvcKniNjZ9g3Q2Zb1Io 5CecbmcASC3BRfnAYAhIm VpHyCrHzP1X4EzQgj6RXJ siEhnHY5wF6Qz MEDjvqbkfrkarGQ8WBZoJ LUotW45fWYjAPehCr4po6 Y0c588LXYcIHUtnO36Lg0 udDogMTBwdCBU vI7coozbe1lbjuhlFpUnR MPdLPb4CIl1AJMiiOdlHf VaBNR1TsL9XQF0qVKrbL7 tzUokflapcK8y Oyc+P72uhA5yGZN1LIK8w kjrMDUhrjFtRW69CM26G8 RyPjwvdGFibGU+PGRpdiB cbQhyRT8sYyUg a1upn2GsVDgzU8FkLKAxK YylBwg1DSGuQQW1rAQ2dO 7vATFiAFhta0K2hNB5F8C omyAomm3mk6vs VJZcULlcR02skHYbl0V5W VRhbVQ1ZLDumOjbXqVkjK 93Oyc+VZNxtCuig4YkQiq pj7dzq5pejZc1 IhNyPBMfcpAakMplJCV1y 1VhHz00E58sVIkfVFNiKN AwBNWrFUJlwZroli8sdG2 wIi8+PGNvbCB3 yXT3qW0yICBqFcP6XJvwL 574YoSkhRCbLphlv4iae3 fjnZw0VaPoOJWdssBvcYq hGGW0c8LaGf25 D14tOXtyFITrNVHnJMAwO ADshOqnij1unD7xLd8+PC 6bp3tcfx65lP40xBX+PHR kJTG7iUlwOCmh YDFgsT5tBEamInH8SSCxM rAmcB92uPIbCEvzIr2vwN nkhPfdUA0tJLPclyawc67 6RwPic4tlKDYs vAJbPXxlMEN0T29ys4W7Q YBtBIWoXIR9pWW3fS4hhC lnbjogbGVmdDsgdmVydGl zBOnkCXjqR347 IHRvcDsnPlBhdGllbnQgT sNjICg8B8UzVkf2XXDchW juGS6dxHYsCYwfBs0hzMq zzVfyZD8aIVRx kncuy835XoIfs9hwQCEpp PVuJDvzCUU6K81mt3V2FN TqFHNuDKF5rAB6cO6knXj nbjogbGVmdDsg xoFkaBsbXOyiCJabF404Y HRvcDsnPkJpcnRoIERhdG A9LY35VE69xQQep8V3cRF 5J0MwNRCowfdt mjrojFY6XEMbZYEzyK74J f0toRafTj8kBHCvEWD5IE FouBMoB5XycM0nLkViEZU kDTWnI7QogEOv XYmxW451IKhzIzW0XLIhi kNuL9RePCKgdWqkLoM5k4 X3Yl6WT7U4VM91BL90cCE rn0S8vXK3E3Rh AODpzhtoyufqjCK5GLZpS RCihC84Pc2pnXieLw5nEY BzJVL8YHRwbZHiR6KhbH5 yOiAjMDAwMDAw I7UutAJuZItoA891MZcgO zX9UCLczxPqM8AmDNDajG ciYdI3h3D4Fr8PXIp7OF9 3KK37fJZcy1L7 nFR7C9MiFCGuyhtypeabv JN6PRJoRMGxoS80Zj8euU mhNy9fWINtILA3TKOwnKC vC0FxkY9vClFf VQPbSIMqM9BtmLWlABnbC 283IPfaKkM2AJShiiFfZ1 BlYPXlmXccRhQ8w4R0Oa9 LWSFbDB93BBC1 mCX6CN99ZV80N6CqUwnjv GFibGU+PHRhYmxlIHdpZH RoPScxMDAlJyBzdHlsZT0 nWt5gDOWsNXZi sOabaSSmWqUvs8tcBZCgV AajFI8ecTtwG3QavRC2GW Xyu9v7Qx72W89jL1WwcDD +YTTinGJ6lCP0 lC5cMzYmAvI3AYkdQ589B uDiaDGiDdngy3wbl1nncH e6OwT8CEHllgSleLisNJO 6c8HsLh10S21g IHdpZHRoPSIxNSUiIHZhb Rcznp3ktB4cKb4+PGNvbC B7aCJ1zK7kQcVuNoU7SGj nQ064ThVcaTUb Webqo0brv9thdQh8BvFgD DBphhGklOgtBHU7d8FfNq 88O8UniLhjc8JxDrm9vv8 7yRSbp4J0yMJ2 V0FtISQvpsstdRUpcBdeG H3jDLPbzpdsNSTigP6fUR SrQ5b2HyQfKiE3NKckU0F gqcS8SFKknFXs HQxtVEB8D22wm3Y3JVLyJ JMnUHD8vDM0jO3jsJhthq ogbGVmdDsgdmVydGljYWw rGBjfY346CWKt wPyqCWVizO7bPGZutYXqb ZlrWO2tJQYfwhcuFmiREX xTLCBTSEVSUlkgRDwvdGQ +SJHpQNZ3oVey NPpzNBIfjZ4dSFQaA4t6U jIjStQ9VZtoK8YnPURvxe ftJj50aS9iZqEaJkL0WXm pK7OtkpJ1YNLf aNRtQXpaXBR3V38uw2Y3D WNaBEWgBSA8pPP1qC2yhK lnbjogbGVmdDsgdmVydGl wEOdsCKctT231 WZHpuVhsLjP7XfHgQkA8S QF7M5UiPkz4XFDwqGbsVB 2xwEOyCBjyVi7kkXjwaGu gSL4gROMpsing HFTblG2pEAYcnDBhsWgiE X4fKQUytgfik838XlVwOB D1EAToyDPvV5IshB7vWgN vVEYfXHRdV9Sb nEWxIQqwR719DDolMlF7D KGvwaOyK6ZqTFGxuRfxXc Z4r9W4Xq52IbKKYASgcou vdGQ+PHRkIHN0 oMjrBZwmDNXcpW6aLDCnU 5z9HgSrVlP0IIfaB4ZtEB XbtzgbRg24jJ2bQmTmOkQ 4SDjqQ4PpouA0 SAGpqZHqXWkfSQW8B59dx 4A7FEEmIWPgHAT0hTS2eV 1hbGlnbjogbGVmdDsgdmV ydGljYWwtYWxp F653EJFzpSgrLvPdxUCjW TwvdGQ+XVZzBIA8yXqwRJ hfPAEesV4jNUDtT3d8XpZ aWfR2AAbsB5Wa CPKcvkvbEi75bC3zXbUnS jA2PVfyN0XtjuD9GDHmuP YyFOzwZDV7W87ww4I1IQN yFUWpMES3kWP2 gT3frUbfpspjxYKpkBsqa lZlaOrfLUbjIAtvK734IT UmcDcwJkGcjK3vLWBeFNy lbWVudDwvdGQ+ TG32oe14B8ZdMjfrSyy5V PQtOZX1fZW2lC0gIAPkDW prl8I2hST6T2FvijPzrp0 ty9aeYCBnCKld L39guMTma2P4ZADiuNG1V BAjhEcxNgCweW31Vzs+PG JoeJyla3FuBrrtc4imr0e fcSn0UzXqRUNa wbWvlPqkOCS9c8QgNv38H 29sIHdpZHRoPSIzMCUiIH PaoYsanm6iqY6jFr7+PGN zcUM1rMS3tY8v McEjGeA0PCprR069FpEjk JApLgyml1xgg1btkXl0Sw TzANFyqqNrkCqsKLA5u0H qIc06F1GxtEqu t0MhJvj0bv61kBHok3G9m XY8S2BuHFErvzcswSGtuQ waPW8dIAGazxyaYNQdpV7 gHQZhS2i8QeHi RkQ7YSkkB0HjueA9FVHiv QDsGJYivYUUvY0pukhke3 nigshiHwOwLUFeWAx7FHo 0LWFsaWduOiBs ZXU9XuV1LCH7rOEyyB0eh SwnwedvyE8kPax+UGh5c2 wroBLaXV6woZH6DM22AB4 9hZFec5F5xTL7 J5DtDIOamikniardpDZ2D MHsEDMkqH73Dr5eyPwgYt 3bCZTrMQI2YBVskCBwD9B ygI7nMwEiHUTs ZELaX6ZeiMEqDScdP145X MrvDtV4KCVgzyXfS7EeCQ GvpSevOvV0k5E6Ox5MJJ1 9EA66BG79bRCb e9G6qOQ5L2JhJPXtvnnng soolZZ3DXLgYGDuoF90Jy 9zfUmtMp0wMDQnQYU6UHU knAChT6MpnD1g PsThMKVkREBqX2NajOBuZ XscP947ZAgjRcY6VJJdtw AnF4VkKIJraLwjHtP8s7J 3Wo9GOt70MJ63 OV94xVTxi9Y7bFH9Y1ThE NRmnoijzkxtoCC4DFObQR EgrP61Gi8ztSpaBg0lNZC rFUA6EHZemQLn Q3FbhI0qOeCzHIQeDWXuM 3LaiEByEFqiR171NXfoEa V0NMHprbDuO1HwBOQbsBk rKzB3i2Q6Nh0C CSaiimb9F2GeMiaodSQ+P P49FQIaOK51kIDhcLDuw0 jnxJq2NqRaIOGfEWH3wId fAUyin7SrECMz Y29s (more content not included)... Normal [facility] Referrals Officeon Referrals Office [id number]# 1.00CD:127 Normal [facility] Consent for Treatmenton 06-12 Consent for Treatment [id number]# 1.00CD:127 [facility] Consent for Treatment [id number]#1 .00CD:127 Normal [facility] Consultation Noteon 07-04-19 Consultation Note Patient: DIANN LINDER Age: 72 years Sex: Female : 1950 Associated Diagnoses: None Author: Indiana Walsh PA-C Subjective Chief complaint 07/04/2022 14:40 EST neck and low back pain . Patient is a 72-year-old female. She has a past medical history significant for previous cervical fusion, adjacent level stenosis, neck pain, cervical neuritis, lumbar stenosis and lumbar neuritis. She has neck pain, arm pain, numbness, tingling, weakness, balance issues, difficulty with handwriting, and she is noticing just overall fatigue. She had a recent lumbar MRI as well as a cervical MRI. She rates her discomfort a 3/10. She underwent previous L5-S1 epidural steroid injection. This was done on 04/30/2022 and gave her 50% relief. She intermittently uses Delta 5/325 twice daily as needed pain. She can only walk around the grocery store if she has a cart. Previous physical therapy did not help. Previous injection did give some relief but not quite enough. She did see Dr. Christ Rodriguez. He had ordered the MRI of the cervical spine. Unfortunate, she does not want to travel all the way to [facility] to see him. She wonders if there is somebody locally she can see if it is needed. Health Status Allergies: Allergic Reactions (Selected) Severity Not Documented Amoxicillin- Hives., Allergies (1) Active Reaction amoxicillin Hives Current medications: (Selected) Prescriptions Prescribed Levsin 0.125 mg SL Tab: 0.125 mg = 1 tab(s), Oral, QID, PRN Spasm, # 20 tab(s), Refills(s) 0, Pharmacy: [facility]/pharmacy #[id number], 158, cm, 10/31/21 16:20:00 EDT, Height/Length Dosing, 97.9, kg, 10/31/21 16:20:00 EDT, Weight Dosing Delta 325 mg-5 mg oral tablet: 1 tab(s), Oral, BID as needed for pain, 60 tab(s), Refill(s) 0, [facility]/pharmacy #[id number], 158, cm, 06/02/22 12:59:00 EST, Height/Length Dosing, 101.6, kg, 03/27/22 15:44:00 EST, Weight Dosing Delta 325 mg-5 mg oral tablet: 1 tab(s), Oral, BID as needed for pain, 60 tab(s), Refill(s) 0, [facility]/pharmacy #[id number], 158, cm, 09/18/21 13:15:00 EDT, Height/Length Dosing, 95.2, kg, 05/31/21 12:51:00 EST, Weight Dosing Delta 325 mg-5 mg oral tablet: 1 tab(s), Oral, BID as needed for pain, 60 tab(s), Refill(s) 0, [facility], 158, cm, 07/04/22 14:50:00 EST, Height/Length Dosing, 99, kg, 07/04/22 14:50:00 EST, Weight Dosing gabapentin 300 mg Cap: See Instructions, 1 cap(s) Oral Qam 2 caps QHS, # 270 cap(s), Refills(s) 0, Pharmacy: [facility], 158, cm, 05/31/21 12:51:00 EST, Height/Length Dosing, 95.2, kg, 05/31/21 12:51:00 EST, Weight Dosing gabapentin 300 mg Cap: See Instructions, one cap in AM, 2 caps at bedtime., # 270 cap(s), Refills(s) 0, Pharmacy: [facility], 158, cm, 04/30/22 8:13:00 EST, Height/Length Dosing, 101.6, kg, 03/27/22 15:44:00 EST, Weight Dosing Documented Medications Documented Alphagan P: 1 drop, Eye-Both, Bedtime, Refill(s) 0, Other (see comment) Fosamax 70 mg oral tablet: 70 mg = 1 tab(s), Oral, qWeek, Thursday, Refills(s) 0, Other (see comment) Glucosamine Chondroitin oral capsule: 1 cap, Oral, BID, Prophylaxis High Potency Probiotic oral capsule: 1 cap, Oral, Daily, Prophylaxis Klor-Con 10: 1 tab, Oral, BID, Refills(s) 0 Synthroid: 100 mcg, Oral, Daily, Refills(s) 0, Thyroid Vitamin B12 Methylcobalamin 5000 mcg sublingual tablet: 5,000 mcg, SubLingual, Daily, Prophylaxis Xalatan 0.005% Soln-Opth: 1 drop(s), Eye-Both, qAM, 2.5 mL, Refill(s) 0, glaucoma, Other (see comment) aspirin 81 mg Oral EC Tab: 81 mg = 1 tab(s), Oral, Daily, Refills(s) 0, Blood Thinner biotin: = 1 tab(s), Oral, BID, Refills(s) 0, Prophylaxis bisoprolol 10 mg Tab: 10 mg = 1 tab(s), Oral, Daily, High blood pressure calcium-vitamin D extended release: 2 tab(s), Oral, qAM, Prophylaxis doxepin 10 mg Cap: 10 mg = 1 cap(s), Oral, Daily, Depression isosorbide mononitrate 120 mg ER Tab: 120 mg = 1 tab(s), Oral, qAM, Refills(s) 0, High blood pressure omeprazole: 20 mg, Oral, Daily, Control of stomach acid ranolazine 1000 mg oral tablet, extended release: 1,000 mg = 1 tab(s), Oral, BID, TAKE 1 TABLET BY MOUTH TWO TIMES A DAY sertraline: 50 mg, Oral, Daily, Depression tiZANidine 4 mg Tab: 8 mg = 2 tab(s), Oral, Bedtime, Refills(s) 0, Insomnia Problem list: All Problems Chronic back pain / SNOMED CT 543199328 / Confirmed Osteoarthritis / SNOMED CT 1711852849 / Confirmed Hematuria / SNOMED CT 721294030 / Confirmed Anemia / SNOMED CT 022443614 / Confirmed HTN (hypertension) / SNOMED CT 0213051246 / Confirmed Glaucoma / SNOMED CT 93387999 / Confirmed Hypothyroid / SNOMED CT 42364314 / Confirmed C. difficile diarrhea / SNOMED CT 9137037674 / Confirmed Anemia / SNOMED CT 233772408 / Confirmed Arthritis / SNOMED CT 9285903 / Confirmed Heart disease / SNOMED CT 61846282 / Confirmed Hypertension / SNOMED CT 6091124579 / Confirmed Hyperlipidemia / SNOMED CT 37575339 / Confirmed Sleep apnea / SNOMED CT 540603507 / Confirmed Long-term curren (more content not included)... Normal [facility] Comment on above: Result Comment: Elec tronically Signed By: Josue SOMMERS, Chad\.br\Date and Time Signed: 07/04/22 19:27 EST In office Testingon 07-04-19 23 In office Testing [id number]# 1.00CD:127 Normal [facility] Office/Clinic Note-Physician on 07-04-2022 Office/Clinic Note-Physician [id number]# 1.00CD:127 Normal [facility] PERMIT TECHNICIAN Drug Screen-LCOrdered By : Celeste Lomax on 07-04-2022 Test Name PERMIT TECHNICIAN Invalid Interpretation Code [facility] SendOutsSS Comment on above: Performed By: #### 1 [id number] ####[facility] [address] [place] [address] Patient Correspondenceon Patient Correspondence [id number]# 1.00CD:127 Normal [facility] Patient History Officeon Patient History Office [id number]# 1.00CD:127 [facility] Coding Summary.on 06-17-2022 Coding Summary. CD:[id number] G h0bWw+PGhlYWQ+DJ6SJHL jT77fmKMndD2JP4aZIZ4V AUMDGZOBGT8HVJ9cwLF8R LpqH0PfgkNx OawozDKnGM21YXf1SQS2i DfaSNbvlM8kbNPcW0g0Jz DpQT85hU82YEvzNETkWoD 3LjZpbjsgbWFy C4zoQsYfbCAlVgq+PHRhY mxlIHdpZHRoPScxMDAlJy MqtPcjTX4zXl1cPBZwMXW vbGxhcHNlOiBj p1jcROTjPCjhQN6rnYagU 9ElaTH2EXVuo2q9Lg97uR I+SUPwVXC4tIwhXNwdr91 2ChQkn7cdDUI4 pGFsMYqiXGR8B73yh3A8H UPxXUCkZTB0sNW9hS5ouU qhbmcvH9PrzMLmWgE2BJE 8oXBqlB2yoCnj rtcxaF2aFwi+E97WLT8BS SEMTL6YHfi2U9WzNuofdH I+MJ33HLFuLD71nNNcuBQ gb6jdgBq9AtRz MIPfHBV8wAtiHRioj3WhW QKsB31twSQgm0Z2CVNmpK mxbYQpOjBlvKN4pE2lPPj vhhefi9otwrgo Fniuk8rxbq28kX36A29qY NtcYJWuZFD5SGQiHZSfkD ornp2mqD5tHa4+CMckp9x am9jkhZi8FxId HNCrtwDnmKnsGWW1c2YqK d02J0KonTsvk5PrHfw5xn 58cXWkr8F7xXP6ZBtiJWV daK8yJWtoYwS0 HCJuQqKmpD55aKIuLZyqU y2fkHxwvLhiOO1nFSKdng qoVYFomT1pJEArdZBzvJx rUY9lFVBwfchu l949LnOtUNU4NFThgFPzS 5XkdV5fMrKnOONoQWDoN3 QwaYGhRHfuL625DXkfBaQ 7UBZgagNuI1Fy GTNmaVhlEkK3i0J9Rm1Ya 2LwifjwRRI3WRdoYMEqLs G5EhDkDvC2K8JrXhg0PJH wgLdiBF6sP2He KPQnralnsdlopKX5EZQuM XXhlL99jWJePFyaPq4nq2 P7d085UBFaWTUcxJ31Ga8 udDogMTBwdCBU fD1jolwqy5shyqtoIaBoY PUpJWn0IJd5RQNvgBhsUe MuFZU1WfO6EEO3uBLzzB0 lwKpgjdchzE8t Oyc+V18xkV0fVQP5UKV2y vknVIZhowPlGG17PI08W0 RyPjwvdGFibGU+PGRpdiB leEfmYR9iZeGm m8uop6PzZLqgL8PbHWXtQ AouVvq1FGQkJSJ7zRJ5rS 0pZHBlTNjdl2I2yFY2S9I zlfXpli5zm2ci MHAdXYuyY09auJBsa0R9R SVzgBP9HKNawWrmFeVtzW 93Oyc+XZDzjUlgy9VfJpf yn5rfv5nqpSm9 IvZjGUPuyrUlwErwXFN8e 6XjBc40F51yNOyqDCPnPR BcVWMuIUFkpGbdbv9hpR0 wIi8+PGNvbCB3 oBP1pH7qFEXtGjP6UJygN 693VrShdLUtLcsjs2gkv9 brxVu3QqUhRBMxhuMekMh uBGB3q9SxAl04 A15oJBmyECSiRGCuOKRzZ NZjfJgabh5qbG7eOa1+PC 7ph4nrkc75cG83fNU+PHR wKWU0lKzlULoh NVZdpH0kEKmiRhN2QZEbK sLjhN34mQSvIMjhKi1tmM mbsFgjKY1kBUWrfuwka75 7NmYiw4yvEECx iHQhKJtfJJC3S14cg9L5Z BBsHHSjCQF3mAI4nI1qlA lnbjogbGVmdDsgdmVydGl bYSxvIHujZ734 IHRvcDsnPlBhdGllbnQgT aFoYId5B2DgCbk9BBWsoI vzBB6jlQItDLmfPb9ltFv wjRelZB2jISVr zkggc373SrScl1vvRWIgv JYdWWuzNVR0G16te0M3NG TaVWYbUPC0jIN8nK2poQx nbjogbGVmdDsg lfIohGvoUVdxZDbbX140M HRvcDsnPkJpcnRoIERhdG G0UB95YI50xHQep1V0iAF 8H7QyTLKvbgpa lolcjMK1GIRqXJPrbK45H s2fcBlqRz8fDMBpDOF0LB LlrNCpR4IupL8yFuOaEWK pTTVxH0XlpWNc XBhnU015XUsvKnK6PZWjj cCiW6BgYYXzvSxyMtC7e0 U2Ep7TO0U2QC13GA54uVR xg9P7iMF2Z1Od DOQwegotzqulxPR3DSZsO IHgfM71Rl5ljZsvJp0dFV GuXZK6WYYujGSbY4MsfE0 yOiAjMDAwMDAw Q5AnyTJgHDupR748QJfbB lW8QLWbdyOfC5FzOGCurG cjIuA4s5F3Vj8FLCw2LL0 3WQ15fNClf0U9 aWE5Q4GqIPBdxretiajhj JT7LGFnFDKmdQ95Py2brJ ysKc4xJKKyAPP3KSXotGY hC2InhI3bGkIl NODgTWSrB0ZvuJWiFRsrC 987MSgbVyD6TYDyokDpW0 NsPKPfsPtlHaW6v9W2Fk3 QGLHzWI39QWM3 aPC5WI34QY70O7UiTrjar GFibGU+PHRhYmxlIHdpZH RoPScxMDAlJyBzdHlsZT0 uEi6sUGFaTFVm cCmaxZFtVqVfc5thYWZbE UkzIV3ipVstC8YtmLW6PK Dcn8l5Qs77Y72hB7WxhVX +ICKifWG8cJM4 cP8nHbAfRrL5GGffJ034Q gKchXIqRwfgp4nni2jthY v4TbA5NIAchkOswKcgHPJ 5d3BiOc63O05c IHdpZHRoPSIxNSUiIHZhb Otpnz0xnF4nMn1+PGNvbC A2pUK6jI3xGvFgZmL8BUg qX351UrIlhPTv Gpvic5mgt6ybcRu1UzEbH SInawPbfHxfLRB5p6KrSe 82K2XtoCkks6WcCwg8cv0 7qKTeb8D6cTB4 K9FiPIBlfeewxUXjmDraR R3qTMNvzkiiVESpjR7nRE QxJ7x9ImFmYnG7QPujL2E yvfZ6TCNvtMCi IFqoMEA2W31jm4I4RPFiB WExFVE6sRB7tD7zfMqlek ogbGVmdDsgdmVydGljYWw vATvcT084QFJk tInqGDVybX1jNEJfxAOcs FcbFV9zKPYodffjWftKXH xTLCBTSEVSUlkgRDwvdGQ +ZXNhQFZ7kZqd ITutBASzqJ3zTECmR0d2J mOrDzY8QNvuL2OgMEUuev wnSd02sJ7qHuXiGwO3APi uN1VymjY7NCTt dPDaDOckVGQ7P43qk7U5T FUnCXSxQEZ1uYM1aF9fxH lnbjogbGVmdDsgdmVydGl qLUfqNZmcV499 MYJfoUayByW5ViMwDbZ1F TR4C6OgQsb4QBUyzBuoTO 9mtUDvDAasYw8muDcbuBw vUB0vKIRjuflw TKLzkV7tILXzaLZpgEbrT P5uTCWvrlrxu075CaXnMO Z6ZFAdzNLjQ2LnkB6xHrB wDVWeTSXwW6Mq bTOuEZnpH604MHpyXrS1U UCwvqKcJ3NuCMRguEohVa X9e7C3Nw58MiKETPOgmem vdGQ+PHRkIHN0 kLngYJjyLZWlrR1jPNQjD 0g9PdFzNbI1FCojE6UoRF KodxetKl82mH7hGqKiRwA 9XGalL1FcyaA1 RERhrRInMWnqGLI7Z01uu 3G3DVJoDLMmJVA9vEU8aN 1hbGlnbjogbGVmdDsgdmV ydGljYWwtYWxp D024RDKmeJfvKeBrkMKmD TwvdGQ+USRgGEJ5oHkkNG sfXWCfnA3hEFHeK1f4AsU bTiY1GXtwO4Pu IRHurucfLq14hO3wZcKjH yP5RGpgL0BkqzS7UAYtqV KtYLrkSMK7P09md1F3GPI tVFDxHBK9iND1 hZ9dlTsbldqngFGyhKebf cEkfItgIFwjGZvjL666ON ConDwcSy28aCUwgXbjjhO 3Q7MqLakswYK+ JG02EQCvPM61lPYreTHlm 3eisYg5YrEaEFIbATK8yW xmROtuh1KlDRFjC60nmZU fb9E4PLRkxGuw xHKvLxUlyDR9uT4mYGtot adri9yjfykeEdhra2unxn 78fB51I53sNJwgPHJeXGR zMCUiIHZhbGln nh5cgZ9mHg6+MZFihAI0d TO1dF3xRcIzGzM3MHdfT4 90DuLqvIGcKnuyj5bjf4h hkAk9DmSqTAAr cbSbpQnlIKF2k3RlGw68L 29sIHdpZHRoPSIyMCUiIH NnhFwuly5xjW2lRx1+PC9 za3igah16gS34 dHI+RBDyOPK7uPcnYCdtR IJifH6kRVxgEnW2HYRtGu OhzP39hWIaVKmtGx4urDe bjAkySJ1hBIZe xmgrx454BjTxr6jfKPNpv WHzKOrwVRL1H68rk9P6KT RgZXQbQUG8pHF0pD6vzPd nbjogbGVmdDsg bnGnwYqyZFiiZZanN419O GTxePfdIuGopKCeM7bwud PUPK2sSvtkmBV+PHRkIHN 0eWxlPSdwYWRk lX8tEYMeN7j3DdNrQlN5G JikG9MycsZ7LEFvwEFqTG NbaOFHiT7zyuzma6ovgpf gIzAwMDAwMDt0 BIj3FMMleOvkUbTxRWN4P tY2TKA8pMSavG9yrGcjmr wrrK7sFdh+RklOOjwvdGQ +LYSuKGZ0wAoj ZFvfPHEciR4fEJThM0m9C lGqAqF4CFmxE5OrcdD9JY PicTNpWNDdyJWQjB3mlyi pz4ivgcxlNoXk UEGpQZs9ZJt3FKDckJthA hNlZYJ1GgW4PDK0rOFrqE 9azLaljefvrZ6eEwt+TVJ OOjwvdGQ+PHRk NQI2tBsqBVmsQNAjfM1aE GVeJ1u9LeUiOyE8ONvoG7 UasjR8CZKkkSAwXTBpnJG LyQ6ujnaiv4lo smtaDwZvVYAgMNe7BFk7C RXiqPrcZxFgMSO1RpT0CP D2zMLshI7qgFmhgitxaC7 wOyc+SYZ9PDV6 RU05QB43X5WoSlcrgAVrv +PHRhYmxlIHdpZHRoPS tkDXXcLnHygArjVA9oXa1 yZGVyLWNvbGxh cHNl (more content not included)... Normal [facility] Coding Summary.on 06-16-2022 Coding Summary. CD:[id number]:[id number] G h0bWw+PGhlYWQ+UO4YUXC cV90zoHBtxI6AH9mBAF2N CDBUYPMZED8PER1gwNU4R UrxZ3QruqXr YlzwrBNmMU47BQq8EEL8f AmaDOchtJ1daEOwK0g7Gv HiBB10qE85WTqwJDHeDoJ 3LjZpbjsgbWFy H6qbDzMcdAUkWpx+PHRhY mxlIHdpZHRoPScxMDAlJy AzxXbcVV9bPe8xQKVvVRA vbGxhcHNlOiBj d7iiPNZpSBdoRS2jbKumZ 0QlaYD3RGEjk2w0Aw50tI I+TIFeEZC6rTasHQvzq75 4NgVrz0juULE6 oLWwALglHFV1L44rn0S7S DPuYGGtQVC8pYO8mA9pbQ ryuxkeN6TakTJgTpF2YML 6zHNjaJ5vqHdy xygshX3rUxl+L96SDM8KO BBJFR7JCrh8J8FlGpkufH I+LS07WQIqLH26dHBeuQO dt5nzzOf1ApDa NVXqUWP1jMrvHBpqd5UnZ ITzT13hyJLdo8N1SNIjwL nwfLLnFuUqtNW8mS2nMNd pfblwf6xggznp Nazxz8lbeh71hQ95F57uA AgyDNCqRTA0DGQrTWHgyP bile8xiW3mIg1+AUylo8o ue3stnUx1HsRx ZZAoreFaxFcjAMZ3m5IoV s70Q8PkcMrel2SyHco1tl 56tVRrl7C7xKF9KKduLHE pzS5uZBprRfX1 XZHkDqMkgS66eBTgCAycZ v8qoLorhKmfGB5fAXHvmf tsQNGmiM6sPFRpzUTolUl bNN5bIDCdfhdr o552VkYwYAT5JSKyeJCvV 0SncV4dJfGiJCVkLNOsX6 IqhHMjPSjdO575OJlfDpU 5NSCclwNvI9Nt OHSitPxgSpW3c8R8Gm3An 6RgcnpeEZO6LDxjBHArWq J4EcIeGkR4Z0WbQea8SKK vrXxyNR4iC4Al EVSdlbgchzhpvGB9MPIvY ILouX43nBFkEAyyHe3ap3 H6i109YRVvRZBjvL65Gs0 udDogMTBwdCBU kD8lzdoti2llcybmQvVdV MPrKIo5RMs4UILbaZuzIw PmKGZ9WrJ5EPY7uJIfaT7 uxAfcpzigvP6g Oyc+S41vwY0yRSG0VKJ9t paeSDOslmYePD23EC26Q0 RyPjwvdGFibGU+PGRpdiB zsKahOD2kJnVm j4yws5UwZVbkJ9YvZVUgB HmbJpx6PQGxWQW5hAO2uP 0pPXQrCAmbd4K4nQU9A1X rmcRudw2ls2su DVHvCDsnK98asMLri2L6Z TPcuRC6KBLkcCfaGjXlhF 93Oyc+SAWmxGejw4OwMtd dl0lhv2jojAo9 TwQyVKJqulGghZbmOBD5r 6WkQo93X07aXAmvSRWpLK GoATJxMCNnbDcvmg0eqD2 wIi8+PGNvbCB3 aPM8nY4qKYMkGkV7TUfkW 588FcGnoSUpKplfd0hbf4 sqlPn3KlUoMUCjpeWsqGb kWQV2r6KwPd17 Q56uDWwaVDWrODKyCKKrS OGihUesut4ktR1dUu6+PC 4uy6pcfk27bI36eZA+PHR bDKR9dPmuASmi QPQhmU5zIRafPmO7KXZcQ hFvpH32vKPvQSmbGp1mxP oqqHbzAH6sEAUejuccg08 7FtTow3szKFUv zQHiTIhjCWY0S39rz1G1O YHtVUWbGMW9sZA0lI8llG lnbjogbGVmdDsgdmVydGl qRXjtINexF937 IHRvcDsnPlBhdGllbnQgT eFqLKi8A9TrUhw2GLLqzA uqJT2koBDaOVtvGu7dmTc mjLsaFY4mVOBd klmzk143AuJit7ktFVEwd TLhFPsdXWL6R54bi7F6KO HcTLYoFWJ4sHL8dE6aiMx nbjogbGVmdDsg mdVkuDooDUlmNUilT474J HRvcDsnPkJpcnRoIERhdG Z9PC80FX71jKXkk7W8xCF 7E4PmYSJcotkw qsuudYC1IVOmZFBexJ48P h7veGtpJn9mQUZbDTP5UR CcgODfU6VumZ3wBzFmUBA bLVSuF4TuhUYo TLvzQ754AFbmHyA9TFVwg mMqB0SaVMQriPdjXgJ6p3 Y1Xt8ZD5B2XW31GR82jDT kd4H8lBT1P6Yp XHHnwzqgpllkyRZ9KJZgY PVryZ26Zw9ttHcwIg3yQK FwGUC9NDWdnBQbH8PlsB5 yOiAjMDAwMDAw W6HcvDQbXSkaH885XWjcU uJ9BSEwteFgO0CfDNMdgO fwFmK8m6Y3Se6GKBy7XS2 3CZ11nHHmv1G4 zDJ9X0KaILFclwatljshy ES9THVdSBStaU33Ag5bmT tvDc2hHKYzQBT1UJEnuDF vR5JuyF6eTyGx BXRkJTQsK6VxbTMaKTpfS 516VVmiLeT6KUExadPgY5 EpMMFtjFycLbU7y8G7Dr5 HEGNtOV42HGS6 dPI4VX86CQ52R5BjSwocd GFibGU+PHRhYmxlIHdpZH RoPScxMDAlJyBzdHlsZT0 eFn9dKLNwYXOq rKzfsIKlAzOvi1buHRKcB HkeTI9zeVnzK7TnmPB2EO Cvw8l5Xb87R02qS2JrnEA +WKOxvSF3gLO4 pC9iVvNuDuT1SQfnY969H nNiwMUsEhulb6ags0qrfY g1MjH5ODZcxsOuvGchWXZ 5r0RuDz76S75b IHdpZHRoPSIxNSUiIHZhb Enhtl3jbY7uBl3+PGNvbC Q5hOV6wJ9wMhWiOdJ8FKv jF677TeItcAQm Roizg9ivh3sqiRv8AqYvK JGcjvBllWwkFUN2j9CjNx 54C6UhmScqe3GcYye6mj3 9cWVot3J3fWF7 U8UjWXHlandbqKMurXkrE V4dYOKlxpajVFAgjM3uUS RjX0x5BuKlFlX2RZkiF1R jrqD3IFStzDYw IAiwOVZ0W00br7L1OUHjT GVgWUC4dJJ3vQ1sbPbnmh ogbGVmdDsgdmVydGljYWw rIVdpP586CQVz uHaaVRJsmI7zDXHpuBBja LynQI2gMPWbzewsArdFWI xTLCBTSEVSUlkgRDwvdGQ +UDKiHGL8bPdy YMqnKACmdN6dRXAcL1y5U uMhIsB7FBgkM4JyWKKroq baHh13fU4xTjHsVtP8TLp hB0DdheH6JCNo eZExLWxqZKE5B28rs2D7A XDzGNDhHPK7fNX6oP6lnX lnbjogbGVmdDsgdmVydGl jUUdaNVcuX354 MPTxjEkzAuO4KcNiOsH4T NO3D3SrTmw2BRYcyXxzDB 6vdATcSAebHg1rpVxjrVd bIN5qWEYgkmgz XFCnrZ3qTRHpdANygVtoH S1iIFSsyktmh618QiVrUO I3XCKtsELvB7KdeI5iXxZ wOJUlRPTmB5Bp iFWhVDgzR008ZAikGqN4V ZBgkvNdZ4IbILThnGmiQz K7i1Z9Lj37WlGQSBXthkc vdGQ+PHRkIHN0 wBpkSKpgUMNrvA9xXKQkL 8a5CgEbMdX0SBlhV9BwFI IaiggxGd25qK3hPrMdVjH 0FPboS3FhqxH2 ZAJicNMlZMwtFOT3A65oi 0I8YXXgHLSpUUW9qAR0gP 1hbGlnbjogbGVmdDsgdmV ydGljYWwtYWxp Y944VZIisDftFiCzqBCkY TwvdGQ+FOIwFRA4oUpsTP fmXQOokI1lHXJoU0d0IwE tEeA5FIxkJ8Dq WWJglyquHj37xN0wIvDzZ vX0WOuxR8PigfF3YRFpcY SvLFxvUKC1H14cf9V6EZA kVQHmBKP9oWV7 hX3efTpnrmohlZHqsXupp hNtmGamQRbvSIauC010XO NjjOcyKz58tVWmdUpxcfV 0M4NdXnxnbGR+ GD65XWOzNO33pVVwmXJfb 5pvaOn7YqUkFRKvIXF4uX qgOQwsi4RfYMTjT91ysTH rn0D8HODgzNch bVVoBiJmiQY0pS7sSJnnw sqkw8vtbgefQnfeq4rzym 53jL43M22mRKyvMWLiTUU zMCUiIHZhbGln aa8zoF2bTg4+SWRjnOE5w DA8hB1mVgVpHiZ5WFuzM8 55XxBmsFGdFummb5grx3f hnUz8NmIqWRTl wpUaiVhpJIQ5r7SkSz30S 29sIHdpZHRoPSIyMCUiIH AeiTtnya0heA0zLa8+PC9 zy0cmvy31dV85 dHI+KLXwKGZ6oOheHMeyK SIylZ7cRZzwPkH3DNMrRf YgvX59wYDnHRiyFt2pwWs gqRcfRY4kXAOz echpu118GpDkn7liVTCrz CJwZSbkFYK7K34pu7C2HO AxXHOjYLM3oIK3eC4vkIz nbjogbGVmdDsg bzUwmUevZUkgABybV704T CCxtTttEjNtwKSbS2jxob LLAR1vJkrbtOW+PHRkIHN 0eWxlPSdwYWRk yA2sDGPcL7t4RpIpOfH5B WtrC0ZojlL6HEJdjXPmDD YmxENEjD1xymzff8sexoc gIzAwMDAwMDt0 LPc0IDMpkAavXpHuJJE8N mR9HDE0uFWjdB5szUqepd bojV1iGzi+RklOOjwvdGQ +XAHxHKV8oPma NBbbXHWnxL6eIHPdB1l5T pCwRbG1FCpkU7CfhuQ9ZY DemQReGDLotPETeT6eyno rm1eptmaiDfGt DEEzAPp8DJo3IZBfuYnnL hHkZWA8ZhR2KLV8gKIitN 8bsNrmopdtfW7wBcu+TVJ OOjwvdGQ+PHRk NRY6qKdxFGdsIMMjwS9qG ACjX6a8HkDcUnI2DCjaP6 IehrJ4MVEjnZLjHDBvbWN WcH2hymeda3ao ymooAvOwPNFgLCt5TGl4Y GOrjJwkYaOpKGV5YiA5RK T8xFQtvK2xhVnhxozryW9 wOyc+HQW0EML3 AZ19VG24F4AmPtcmvZEoi +PHRhYmxlIHdpZHRoPS vjYGRpFzCozUxeKT9nUd0 yZGVyLWNvbGxh cHNl (more content not included)... Normal [facility] Coding Summary. CD:[id number]:[id number] G h0bWw+PGhlYWQ+FL3ZDVK aY58aaBWwcI5DG7zVNY8P CBMQTPXYAU5QRO9ltWX1R SmvZ0BunlXo TdajtYFhDV08NQo4HNT4d AmuCQrtbR2syVOsR6u1Ez WwCD69pS52GIkdWQExHrR 3LjZpbjsgbWFy X3ibXxZizJFkXnp+PHRhY mxlIHdpZHRoPScxMDAlJy WemLnjTZ0bQq3uZDTmEKF vbGxhcHNlOiBj e3cuZFAmMIhbCI5ygIvcT 5SlmSB4ZCTze1b6Un22oP I+PURmVIF6lQjsMQeje88 5TwMfg8laVIC1 zEVzCFrdYMM6W46fz1V6E LYjSPSbAET5cOH6wJ6cjV gcgnkiB9ObnVNrTnI4HQG 8nMUvmR8ilUpy npjvsW6nElj+Z42IBO8EY XDONN7DWto1O8OrZhzioR I+PO72BVPqEZ72dEQcvAO pr9pqnCv0RbDi UOMzLEJ6mDhvNAcei4PnC XDpP29vuUWoc9L4WFHlbV jarAKsNaEypWR9aZ4iCFo uwmsie3wucpra Nngok2cvyv79pK39C83lW LlbCKWpBIT4XFFyILMhzE sdrj5xxL2sQy1+VBiyc4j hi0mzzSc3EaSv KFZddwGiiPcbCIE3a0BuF x42L0KyqZwxs1JkAxo5ji 34jCCls3R2rYR7RLnfTXP ygW5fFPakVgM6 ORUeVfNgnH54bLUbBMjyA t9ufYgspXycMN5fSDPjmf yoWBFtcA3zYMDxfHWmcJw uFN6bPCDlyspv q097KjLgMFU2ESOuwHVbA 1UwcR9bWxArJTUcWLMgR3 UbhUXkUYcmR200JUfhThI 8VOPojgAfZ9Xy VOQgrSolCcY6u6P8Nm7Gk 8TckbkrVIH2OJtjCKMmJs N2VsFoRgT9A0EkQwf8TLP gcOniGO8gQ3Fe UXFpwscytyvypVB0WDRhZ ECbfJ44eYYwXYzwTa9qh2 D4d268YXCbSRHpbR64Qd4 udDogMTBwdCBU lD6uwcaty4ehdxmcKrNyA NQjHYb2JUg4UPJipTlhOi KbWDA3ZnV1SHM9fZSodL8 rtPezowkxcA7p Oyc+M84shF0zYDP5DIQ1w eekQGWsrcThUY12HF26M2 RyPjwvdGFibGU+PGRpdiB ayRkrYR3tSfLc i0xue5LpKHeuQ5UfDECqM FxhIgh9JXDpDEH0xJP1iA 2wOITnRWygz5M4dCS9D0W simZqqt7dy9yg WNTcKArhF38zqEWwk5J1M TWvcYB4VWXrnTslNgYazQ 93Oyc+BNAdiRrpn2SzZvu lt8bff5mxvSe5 RiRvUVMottScqCisJOJ8w 0RrPu52M86dMSkuEJHhSN AcHRPwIBGdxNtdrv3dxS3 wIi8+PGNvbCB3 oMR3hK0sDZZzRjC4UNqlO 655RpXtlFRaJjalj9ucf6 ejaFm5MoHkTNBaitQvgLi zRMH8u6BlUe29 Y19vLGfoHESnAUIfCXDcZ JRyeWhqve1veA0nMn9+PC 5en4jryk21hE30kSS+PHR lSWI4uNyuETey TTEmbN8pSIwmRvQ9RMFjI bGzwM87pPVaXHjvDn6pfG agxMtxBN3vAYUkpddjc01 0PkOhv5dxPHMc vQDaAErzDYD4Z49lc7I4F RXiJRHgGBH9bED6uD6gsH lnbjogbGVmdDsgdmVydGl iZQelJBnmL160 IHRvcDsnPlBhdGllbnQgT cMsUUl3Y3FsLtn5BHXxoW zyHJ2poULbMYwxCm4axHq lxZzqDH7tTBDs fzvbj484BkLhw4nuURXqg PLtLJxuWMH2V46et6F5CX YaPDWlBTE3ySF4pK9mnLq nbjogbGVmdDsg seAlvAuoXDwyZHrwZ989Z HRvcDsnPkJpcnRoIERhdG Z4QI33QQ83vUElx8F9wBM 1Y1RxEHDttiba ifydxJC4UETaVHKooI15X l4xrKgnGr6sAFFzONV2FF NxhQHmD3DsnR8zVaBdJZU zRUZkI7GotPYb LHobB184ACmpDiB7EGLlc kDsA7LgKIFgzRhiZlO9c8 X8Ej6QK6R1TJ22DK45rLJ cb3J4nYK6C4Bk NLDqouxsccgdjYN4VCIrX PVecB62Jk8nlFcoWv4yLU WlSCC6KDDqcUYxE5UumL7 yOiAjMDAwMDAw U7ZvrSQwOIgbA944HFfpX vN1WPDirnAmY0MbQMNflZ fnKwV6i3W7Nk2KBBf4CH2 6FQ03nHKag9M1 sVC2A8OsOQGrzcwoluhpn OZ1ELNoLLRgsI10Ar4bbH poUd6gTCJsQVC8XLCaiAS fN8AauZ8zBnMe ZNIySADcN8YtcQMwVZfeW 823AHwcQmK7WBQjtaRhI4 FeEPLynJwdTeP4k0U6Bs5 YLSQmAM77JVP8 lHW6GJ70EO79C5LxXrvtt GFibGU+PHRhYmxlIHdpZH RoPScxMDAlJyBzdHlsZT0 zCt5bVEWkODKl sZqvsWMpRpMtr3rnWUNqT KbgWK6cfUcnY2PsmKQ9WE Utf2v5Cb26Y77yM0ChyTH +UHVkoCZ6uNX5 aR5nNmFxGnY4XYdaR240F rZjgETsBjjol4mwt5ewfT a7DpM1IGGkkqLymMveHEW 7z9LhXm88H28b IHdpZHRoPSIxNSUiIHZhb Srruq9owC8yGb2+PGNvbC S4xLK4uD3wBpPmCmJ3LJg sB426WyBaaZUl Ayoxl9szh4zduCy7NtLnE JCvopYraErjGZN4f0TlLv 02B5MpxGiee6SpGuc5tw1 9yOUvg9C3bEF3 I2ZcKDSmkgedqPVgjAkkB G3gGINnyfbtUCMceK8qNW ImR1m9DkGzXyQ2EJvpL2O thuV1SNPhbCMf WSiwPQP8P52ww6A5TVPgK IUpTEP2gSB6tF0gkSroyr ogbGVmdDsgdmVydGljYWw mTNnjQ775WPJl yGviJVKdjS1uLRWksPVhr ZqjOK8wAFBocttzRlaPND xTLCBTSEVSUlkgRDwvdGQ +HCKuCVO4tOmh BDxaRFYmpU2fYIAyP0j5P fYrVwE5ZLesC6IiWHTjnb lrUl64iF4sOqAfIeS3UNa oE5EchgZ3UXRh fCGjHNnmAHQ7J39bz3W4J LEtVKSeFZA4oOK3aE9fjA lnbjogbGVmdDsgdmVydGl nDWvpHDdyH935 IYHzrYbmAdY8FiFjPhL4J OV9X7XeHzr9HVNlrWtqWW 7tjTLnWJilOe7noEcufAr gOQ6aMPMuvarn ECAbgA2aCUYhuSNpwIxiG H6wUSHmrsiey601TxNwAF H2KYHixOSjW7LkbG9rReC pSAGiPYToG1By fDOjDYtuW736TQsiBsI0C RSxosDnN6UmFRWrePzrUp W0z1S1Cx42BvYMKWPwkgk vdGQ+PHRkIHN0 eFjwXNrgZPSppG5bPOOzP 8x0KvQoVtN7SKnxE5XvMB GsughqVt04jP8yCwZoPqY 0XTmcA0NfwfW6 XWIspHCaKEafLFZ8O01km 4R9AKMlOKAhBJX1yIA6lA 1hbGlnbjogbGVmdDsgdmV ydGljYWwtYWxp T577BUTqtYhvGoDkmCGlW TwvdGQ+GEPwSKM6aEtnCV isYMAadS6cWRJvP0k4OqE sWfS0JSbcU5Ez MPUkvvjlTx12yM7pJzMlM kU7XXijN0LkfxM4NHOqfY NlSEjaGPI8E72lu0L8MNA fFOUeZEE7lSJ6 wI2rzNsnmfgvvESawLmzm iMurQpiRXilYDktT209HS AijYuzWy97bTTcjHlxqoE 8I1VqNiulgYN+ OY63LAYeWC18jIPltPLsi 2rssNf2KmPoMLAwXYG4yZ dqMYjjp7BiDXQrJ87xtCB lh5M4MUMezMwi dJLaZpQllLP5qA0iACeyn qoex9eduxuwSvcpz7gtxo 11oB61D89dCYtvNGXhDSL zMCUiIHZhbGln sg9xkC2mSe6+ZSUcvMO5y NG8oH0aPxRaVuS6ZWczW9 65ZhIevEPnYyczt5tkn7m viXv4KhXfDAKx knYapOphAHU6y7PfYt37V 29sIHdpZHRoPSIyMCUiIH YxnSrgfd6lbZ4fIi1+PC9 wl4gttt84iD34 dHI+DEKxDDW9sDiuWUttE JVxuT1fTEvpJiX9FGZySg ChxD93cDLmSCegGr9tjMv ukRkiRX9wMLJa izvrs293DvNxn2hoVZRsu ZGaVSewJZG5N79ai0U2VY BzUQDuMUK9rHP2gR6inPu nbjogbGVmdDsg piNadMryGHtjESiyE345M NFsoQunEzGlgGAbY2aitn PTOW6yJrmmeHD+PHRkIHN 0eWxlPSdwYWRk tP2uFMNzS5i2VmBmJmF6P ZdpZ8EppuS5ISEtmKOlUR NvpBNHqW5paqhyf4cjxtb gIzAwMDAwMDt0 FFv8ERSegJsnAkXsYZA4V vA0YVE0lSBcvC6rwJwmqy adgQ2pHsg+RklOOjwvdGQ +UYWiDHX5fYeo DPyaMWUzbZ8qNNBhI0f4H xGnZeI6GVmwS9TzpqK4OT TioQFfILSrvQFZqH8plrk oh8hupatcPeOw YFXyRHr2PFd4CJGxmTpdR nQjNEQ8EdB9QRO4hAPevM 6kdWszzsdgbI2yOmi+TVJ OOjwvdGQ+PHRk OHL1yPpyHKwdJPWqqT4fM VCvK0k3SpPdJrX4FTydB0 CkncF6LQQvxEInJWUgiJY JoL8vwzgxy8yc funiUxNlGPMzFSo5HNy7C NVqiKphGjUuFQU4OwS3ZX Q4cDDixA0qlRhhmeflbU9 wOyc+ROU4MKE0 HR06MH65G5LoDkepeKLdu +PHRhYmxlIHdpZHRoPS paEYUvWxJzxDkmRH8lDm6 yZGVyLWNvbGxh cHNl (more content not included)... Normal [facility] MRI Spine Cervical w/o Contr juventino 06-15-2022 MRI Spine Cervical w/o Contrast Exam Date/Time: 06/12/2022 18:01 EST Reason for Exam: M54.12 M48.062 M 54.16 Report IMPRESSION: PROGRESSIVE DEGENERATIVE CHANGES C2-C3 AND C7-T1 SINCE 04/28/2019 WITH INTERVAL C3-C7 POSTERIOR FUSION/LAMINECTOMY, RESULTING IN CENTRAL SPINAL STENOSIS AND NEURAL FORAMINAL NARROWING DESCRIBED. EXAM: MRI Spine Cervical w/o Contrast DATE: 06/12/2022 CLINICAL HISTORY: M54.12 M48.062 M 54.16. COMPARISON: Cervical spine radiographs 06/02/2022 and cervical spine MRI 04/26/2019. TECHNIQUE: Multiplanar MR imaging of the cervical spine was performed. FINDINGS: The spine is visualized from the craniovertebral junction through the T3-T4 level on the diagnostic sagittal sequences. Increasing moderate degenerative changes at the C2-C3 level are present, with approximately 5 mm of anterolisthesis, which results in moderate central spinal stenosis and right neural foraminal narrowing. Increasing moderate degenerative changes at the C7-T1 level are present with approximately 4 mm of anterolisthesis and a moderate-sized central disc protrusion, which results in moderate central spinal stenosis and moderate to marked neural foraminal narrowing, greater on the left Postoperative changes from previous C3-C7 posterior fusion/laminectomy are otherwise unremarkable. The visualized upper thoracic levels are unremarkable. The visualized spinal cord is normal in signal and caliber. 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 EXAM: MRI Spine Lumbar w/o Contrast DATE: 06/12/2022 CLINICAL HISTORY: M54.12 M48.062 M 54.16. COMPARISON: Lumbar spine radiographs 04/01/2022 and lumbar spine MRI 03/16/2020. TECHNIQUE: Multiplanar MR imaging of the lumbar spine was performed without contrast. FINDINGS: The spine is visualized from the T11-T12 through the S3 levels on the diagnostic sagittal sequences. Mild rotary levoscoliosis and advanced degenerative disc disease and hypertrophic facet changes throughout the lumbar spine Minimally progressed from 03/16/2020, with approximately 3 to 4 mm of anterolisthesis of L4 over L5 again noted. There is no compression, fracture, or other significant subluxation. The visualized lower spinal cord and conus medullaris and paraspinal soft tissues are unremarkable. The T11-T12 and T12-L1 levels are unremarkable. At the L1-L2 level, there is mild disc space narrowing, mild to moderate diffuse disc bulging with mild posterolateral endplate osteophytosis and hypertrophic facet changes, without central spinal stenosis, significant neural foraminal narrowing, or a discrete disc protrusion. At the L2-L3 level, there is moderate to marked disc space narrowing, moderate posterolateral endplate osteophytosis with associated broad-based disc protrusion, and mild to moderate hypertrophic facet and ligamentum flavum changes, which results in mild central spinal stenosis and moderate right neural foraminal narrowing. There is no significant left neural foraminal narrowing or disc extrusion. At the L3-L4 level, there is moderate disc space narrowing, moderate diffuse disc bulging, and mild to moderate ligamentum flavum changes, without central spinal Report stenosis, significant neural foraminal narrowing, or discrete disc protrusion. At the L4-L5 level, there is mild disc space narrowing, mild to moderate diffuse disc bulging and moderate hypertrophic facet and ligamentum flavum changes, which results in mild neural foraminal narrowing, greater on the left. There is no central spinal stenosis or discrete disc protrusion. At the L5-S1 level, there is moderate to marked disc space narrowing, moderate posterolateral endplate osteophytosis with associated broad-based disc protrusion, and moderate hypertrophic facet and ligamentum flavum changes, which results in mild to moderate neural foraminal narrowing, worse on the left. There is no central spinal stenosis or discrete disc protrusion. FINAL REPORT Dictated: 06/15/2022 11:33 am Santos Trejo MD Signed (Electronic Signature): 06/15/2022 11:33 am Signed by: Santos Trejo MD Transcribed by: JACKIE Technologist: JAEL Technical Comments None [facility] Consent for Treatmenton Consent for Treatment [id number]#1 .00CD:127 [facility] RAD - MRI Screening Formon 0 06-12-2022 RAD - MRI Screening Form [id number]#1 .00CD:127 [facility] Consent for Treatmenton 05-13 Consent for Treatment [id number]# 1.00CD:127 [facility] Office/Clinic Note-Physician on 06-10-2022 Office/Clinic Note-Physician [id number]# 1.00CD:127 [facility] Physician Orderon 06-09-2022 Physician Order [id number]#1 .00CD:127 [facility] Consultation Noteon 06-07-19 Consultation Note Patient: DIANN LINDER Age: 72 years Sex: Female : 1950 Associated Diagnoses: None Author: Indiana Walsh PA-C Subjective Chief complaint 06/02/2022 12:49 EST right hip . Patient is a 72-year-old female. She has a past medical history significant for previous cervical fusion, neck pain, cervical neuritis, lumbar stenosis and lumbar neuritis. She underwent recent L5-S1 epidural steroid injection. This was done on 04/30/2022 and gave her 50% relief. Unfortunate, she still has a lot of lower back and left leg pain. This is affecting her ambulatory status. This affecting her quality of life and activities of daily. Affecting her ability to do things and she is very discouraged by this. Patient also continues to have neck pain with shoulder pain as well as left elbow pain. Previous left elbow injection helped. Unfortunate, her neck and arms are very bothersome to her. She had recent x-rays but unfortunate, the flexion and extension x-rays were not done. She rates her discomfort a 1/10 but states that things can get much worse depending on her activities. She has difficulty walking, standing, bending, twisting, turning, and doing anything. It affects her ambulatory status. She can only walk around the grocery store if she has a cart. She uses [employer] and it does help her. She is requesting a refill. Previous physical therapy did not help. Previous injection did give some relief but not quite enough. She just wonders what her next steps are. She has a multitude of complaints starting with her neck and arms followed by her lower back and leg followed by her elbow. Health Status Allergies: Allergic Reactions (Selected) Severity Not Documented Amoxicillin- Hives., Allergies (1) Active Reaction amoxicillin Hives Current medications: (Selected) Prescriptions Prescribed Levsin 0.125 mg SL Tab: 0.125 mg = 1 tab(s), Oral, QID, PRN Spasm, # 20 tab(s), Refills(s) 0, Pharmacy: [facility]/pharmacy #[id number], 158, cm, 10/31/21 16:20:00 EDT, Height/Length Dosing, 97.9, kg, 10/31/21 16:20:00 EDT, Weight Dosing Delta 325 mg-5 mg oral tablet: 1 tab(s), Oral, BID as needed for pain, 60 tab(s), Refill(s) 0, [facility]/pharmacy #[id number], 158, cm, 06/02/22 12:59:00 EST, Height/Length Dosing, 101.6, kg, 03/27/22 15:44:00 EST, Weight Dosing Delta 325 mg-5 mg oral tablet: 1 tab(s), Oral, BID as needed for pain, 60 tab(s), Refill(s) 0, [facility]/pharmacy #[id number], 158, cm, 09/18/21 13:15:00 EDT, Height/Length Dosing, 95.2, kg, 05/31/21 12:51:00 EST, Weight Dosing gabapentin 300 mg Cap: See Instructions, 1 cap(s) Oral Qam 2 caps QHS, # 270 cap(s), Refills(s) 0, Pharmacy: [facility], 158, cm, 05/31/21 12:51:00 EST, Height/Length Dosing, 95.2, kg, 05/31/21 12:51:00 EST, Weight Dosing gabapentin 300 mg Cap: See Instructions, one cap in AM, 2 caps at bedtime., # 270 cap(s), Refills(s) 0, Pharmacy: [facility], 158, cm, 04/30/22 8:13:00 EST, Height/Length Dosing, 101.6, kg, 03/27/22 15:44:00 EST, Weight Dosing Documented Medications Documented Alphagan P: 1 drop, Eye-Both, Bedtime, Refill(s) 0, Other (see comment) Fosamax 70 mg oral tablet: 70 mg = 1 tab(s), Oral, qWeek, Thursday, Refills(s) 0, Other (see comment) Glucosamine Chondroitin oral capsule: 1 cap, Oral, BID, Prophylaxis High Potency Probiotic oral capsule: 1 cap, Oral, Daily, Prophylaxis Klor-Con 10: 1 tab, Oral, BID, Refills(s) 0 Synthroid: 100 mcg, Oral, Daily, Refills(s) 0, Thyroid Vitamin B12 Methylcobalamin 5000 mcg sublingual tablet: 5,000 mcg, SubLingual, Daily, Prophylaxis Xalatan 0.005% Soln-Opth: 1 drop(s), Eye-Both, qAM, 2.5 mL, Refill(s) 0, glaucoma, Other (see comment) aspirin 81 mg Oral EC Tab: 81 mg = 1 tab(s), Oral, Daily, Refills(s) 0, Blood Thinner biotin: = 1 tab(s), Oral, BID, Refills(s) 0, Prophylaxis bisoprolol 10 mg Tab: 10 mg = 1 tab(s), Oral, Daily, High blood pressure calcium-vitamin D extended release: 2 tab(s), Oral, qAM, Prophylaxis doxepin 10 mg Cap: 10 mg = 1 cap(s), Oral, Daily, Depression isosorbide mononitrate 120 mg ER Tab: 120 mg = 1 tab(s), Oral, qAM, Refills(s) 0, High blood pressure omeprazole: 20 mg, Oral, Daily, Control of stomach acid ranolazine 1000 mg oral tablet, extended release: 1,000 mg = 1 tab(s), Oral, BID, TAKE 1 TABLET BY MOUTH TWO TIMES A DAY sertraline: 50 mg, Oral, Daily, Depression tiZANidine 4 mg Tab: 8 mg = 2 tab(s), Oral, Bedtime, Refills(s) 0, Insomnia Problem list: All Problems Chronic back pain / SNOMED CT 732933359 / Confirmed Osteoarthritis / SNOMED CT 8845218773 / Confirmed Hematuria / SNOMED CT 259623827 / Confirmed Anemia / SNOMED CT 313656379 / Confirmed HTN (hypertension) / SNOMED CT 4575110999 / Confirmed Glaucoma / SNOMED CT 79625552 / Confirmed Hypothyroid / SNOMED CT 18915188 / Confirmed C. difficile diarrhea / SNOMED CT 2915291049 / Confirmed Anemia / SNOMED CT 206694559 / Confirmed Arthritis / SNOMED CT 9275811 / Confirmed Heart disease / SNOMED CT (more content not included)... Normal [facility] Comment on above: Result Comment: Elec tronically Signed By: Josue SOMMERS, Chad\.br\Date and Time Signed: 06/07/22 21:59 EST CBC AUTO DIFFon 06-06-2022 BASO # 0.1 103/ul Normal 0.0-0.1 [facility] Comment on above: Performed By: #### C BC #### [facility] [address] [address] [address] Sherry Sanches Basophils/100 WBC (Bld) 0.8 % Normal 0.2-2.0 [facility] Comment on above: Performed By: #### C BC #### [facility] [address] [address] [address] Sherry Sanches EO # 0.2 103/ul Normal 0.0-0.7 [facility] Comment on above: Performed By: #### C BC #### [facility] [address] [place] [address] Dr. Sherry Sanches Eosinophils/100 WBC (Bld) 3.0 % Normal 0.9-7.0 [facility] Comment on above: Performed By: #### C BC #### [facility] [address] [place] [address] Dr. Sherry Sanches Erythrocyte distribution width (RBC) [Ratio] 13.5 % Normal 11.0-15.0 [facility] Comment on above: Performed By: #### C BC #### [facility] [address] [place] [address] Dr. Sherry Sanches Hematocrit (Bld) [Volume fraction] 34.7 % Critically low 36.0-48.0 [facility] Comment on above: Performed By: #### C BC #### [facility] [address] [place] [address] Dr. Sherry Sanches Hemoglobin (Bld) [Mass/Vol] 12.1 g/dL Normal 12.0-16.0 [facility] Comment on above: Performed By: #### C BC #### [facility] [address] [place] [address] Dr. Sherry Sanches IG # 0.04 10e3/ul Critically high 0.00-0.[address] [facility] Comment on above: Performed By: #### C BC #### [facility] [address] [place] [address] Dr. Sherry Sanches IG % 0.7 % Critically high 0.0-0.5 [facility] Comment on above: Performed By: #### C BC #### [facility] [address] [place] [address] Dr. Sherry Sanches LYMPH # 1.4 103/ul Normal 1.2-3.8 [facility] Comment on above: Performed By: #### C BC #### [facility] [address] [place] [address] Dr. Sherry Sanches Lymphocytes/100 WBC (Bld) 23.9 % Normal 20.5-60.0 [facility] Comment on above: Performed By: #### C BC #### [facility] [address] [place] [address] Dr. Sherry Sanches MANUAL DIFF REQ NO Normal [facility] Comment on above: Performed By: #### C BC #### [facility] [address] [place] [address] Dr. Sherry Sanches MCH (RBC) [Entitic mass] 31.2 pg Normal 26.7-34.0 [facility] Comment on above: Performed By: #### C BC #### [facility] [address] [place] [address] Dr. Sherry Sanches MCHC (RBC) [Mass/Vol] 34.9 g/dL Normal 29.9-35.2 [facility] Comment on above: Performed By: #### C BC #### [facility] [address] [place] [address] Dr. Sherry Sanches MCV (RBC) [Entitic vol] 89.4 fL Normal 81.0-99.0 [facility] Comment on above: Performed By: #### C BC #### [facility] [address] [place] [address] Dr. Sherry Sanches MONO # 0.8 103/ul Normal 0.3-0.8 [facility] Comment on above: Performed By: #### C BC #### [facility] [address] [place] [address] Dr. Sherry Sanches Monocytes/100 WBC (Bld) 13.8 % Critically high 1.7-12.0 [facility] Comment on above: Performed By: #### C BC #### [facility] [address] [place] [address] Dr. Sherry Sanches NEUT # 3.5 103/ul Normal 1.4-6.5 [facility] Comment on above: Performed By: #### C BC #### [facility] [address] [place] [address] Dr. Sherry Sanches Neutrophils/100 WBC (Bld) 57.8 % Normal 43.0-75.0 [facility] Comment on above: Performed By: #### C BC #### [facility] [address] [address] [address] Sherry Sanches Platelet mean volume (Bld) [Entitic vol] 8.8 fL Critically low 9.5-13.5 [facility] Comment on above: Performed By: #### C BC #### [facility] [address] [address] [address] Sherry Sanches PLT 259 103/ul Normal 150-450 [facility] Comment on above: Performed By: #### C BC #### [facility] [address] [address] [address] Sherry Sanches RBC 3.88 106/ul Critically low 4.20-5.40 [facility] Comment on above: Performed By: #### C BC #### [facility] [id number] Sherry Sanches WBC 6.0 103/ul Normal 4.0-11.0 [facility] Comment on above: Performed By: #### C BC #### [facility] [address] [place], [place] [id number] Dr. Sherry Sanches Coding Summary.on 06-06-2022 Coding Summary. CD:[id number] h0bWw+PGhlYWQ+VY5POAO bL09qsZEamF3CT1tOAR6X RHYSADEVFV5UZM3qqPQ1N FhgW0ZtgtVx YzituUOlSP89XQk8DED5c XcjKWlmmZ4smFHiH8m4Mg RxWK60vM20RWgtDLArPuA 3LjZpbjsgbWFy G2pdChWvfPPhVgo+PHRhY mxlIHdpZHRoPScxMDAlJy AygKazJV4sNc5pQXPwHQQ vbGxhcHNlOiBj x9amIJZoOBfsRR9yvYnzO 1KcwEN8BMAwp3b8Fk46vW I+ZDGxTXA7pArvFPbms98 2LpPxr3cnCUN0 iPYeWVzpNPH2V41io2O9R POwFTLkJIM7cLU1iP5ayB onqifvA7MyqDTiKeA4UXU 0jHGtnP1zbJvi tinnkF1fCav+I96UJG1ZT REJQP0BRvt1M8EvMhoxgO I+QX38CBRmDW18tXOicDS ox0yqxEn0BgGz PHJnGOI5nChaSObnf9LyD YIsY75jyJVdt4K9KQNdgQ spyDPcRmIdiNS3pM1rUDt wvdnvu3jraygx Hkmpk8zuwb55lG06Z11cA QcxHDQcRTE4SQYtVFGyoF qznu6bkT7bZs9+MEnzx4s kz0izaIf6BjPm AJBcvhTxyEteISM9n1HdB f92U0HzxOkoq5DjOgz7zj 19lNBcd1F6tUY3MIxlDLK aqU1tOImtUnS9 TVMnVxCdjY16fAHeTOwzP z8mdEfeiLzjQM4lYNOtmj syHXJfkO3wQRLxrTQzoCq iAV0wQNEuberu q462ArQsCWE3TQPywARiM 9MboJ6xCiTgCPWzIFHtD6 GnrUPoGVhcJ008QTqrQhO 8HVWkmwCfG7Zh LYHkhGbcVoK2y4T4Rw1Kw 6NrkjdqPVC1VWwlEFCmSx A9MrBxApV4A7TcZal8VZK adOdkNK7tP3Dy LPCxzgwexyoldLJ2TAQyP ALeyA50oMRtYLnnSv6pk5 D0d158RFKgRZOdaE01Xn6 udDogMTBwdCBU hS1twitxn4wmcsoaYaTjG XUsMEv1ACg1LBSwlDaeBj ShJKB4UtR5OAA4zFWbtJ7 rqFtytitxsL9x Oyc+B48zkS3xRIL0ZGV2w stlTSTpseWzNI22GJ31F2 RyPjwvdGFibGU+PGRpdiB biKswRY4nJfIs p7rlg7ZeVVmaK8UjODYuW IhzOfn9TSKiXKN9uYZ4fM 2tQDFcRMlhy9Z5oQD8R8Y uxgXgfa9ed3jz MEFiDVxeF76buAUhv6D2H ZKsfDX9QWGibVexCxRqmN 93Oyc+CVNxjCucp1OwGdt ci7xfz3cxtQu8 TfAmXXPnqoQlxWiaWPH5k 2HuAx35W62hJUayMCNhZW JeRYBrJFJkwXzwbj4ymX1 wIi8+PGNvbCB3 hUG6iT9yOOTmYyB8SXwcK 404BmIveTFbUdnqk9pqx7 uuhEf4SrDlASTowtCubVc xJUI8x9GtIs71 G33mDGtaGSPfVDFfOHRaB TWdyJngwr2mhD2nUl2+PC 8nu2adcp36dX87aLD+PHR aWLE9mYpyQJlv RWZmiL3cCShqVhS5IAKuV fIgfT64vMCnKXumVu8vaS nyvKgoJO4nQYYcdiyad52 4OwUgc4khHLRk sOYgGGpiXAU6V58za0F1D GIpUNQnXDC3qXD5oJ9ssH lnbjogbGVmdDsgdmVydGl wJQmlZHyvP402 IHRvcDsnPlBhdGllbnQgT nIbAJv9K7LeXpu8BTYcfY cuSU8onHOdGIlqUr2yvUg opGbnBT3xUVHf xwdds291PaWuk7mcOSFiz TExWQitFDR1F54yn3L1UR VsGQHsGAZ0qTT7zC5jlHl nbjogbGVmdDsg qePilBfzAMuyOJhoM378F HRvcDsnPkJpcnRoIERhdG Z7RX77GI04hDMvg7R3tJT 9P0WqBSKtavww bzbzlOU5GNYsHFBhpA55U c2pdSnpCd0sSUTiVDM6ZV VgdAJzS7BgkR1tUbUnBBO aFQSnY4SdaUTo DUbdQ620WAejPbV7WQUxl gHkZ9DiZNFoiVygDsA5n1 S7Cu0GW2E3DU88SB23yGI yu5M8cFU7J4Ea NUMfriipaxhcrNA2ANXpQ VDkxH51Hw9rmJreYm1sCL WoUQT0SMThnPToE7LgsA1 yOiAjMDAwMDAw G8NsiUPnMNtnB748VGmpS qR0TEHxowAiN2ApVUDouT wwJhB6c3B2Ui2BTQz7GN5 2NX20dJPws5O2 wUD7J1TjHIImkffnfbhkp YJ5PPSiDNQrfE11Tp3pcW haOz7uVULiIAG7CZIdeWU dJ1ZhbH2zIaPu MQUtMIRgY9VitRQpAPadH 478WCdmBrB6ZJNrykVlC4 OiQFHhhQroOsM4m8B3Kt6 RETNuHP94EGV0 iBF1ST07XR85W0RaFxlba GFibGU+PHRhYmxlIHdpZH RoPScxMDAlJyBzdHlsZT0 lQv3zULNzMDVs uLnauWLaNcCmi6kqDXLfF SvjPE4upAxwU5RdrGV8GI Lpt2j4Kl04S89aM0EknQF +LKKzwGC0kKG1 gP6kAxDfCzL6EXhvR882F fHejPRpDonse9uvc0pgvC c0CaC0NOWtzjHoePgzKSC 7n6XgZi80U47u IHdpZHRoPSIxNSUiIHZhb Pfwql3ejM7zNg1+PGNvbC X8hVI5sE3dCcHgApX5HOj eA705LwWblTNf Ykhsi6qvm6yicTo6GbEmT BUujpFqdLtgPBT3d3KnFh 85X4SimVunq7TxZxz3xl9 3sCEyz2K0rHX5 R0NoCGAhlsakrLAwzHvkF I1jIFKqjoqiLNLumH7cFH XeW8m1BkQrSqH5QNywE3M ufsF4LWHiaDNk JYlkPAW6K82zt6I2KVFnM TLmSCI2fIY6gJ9hiOsbyq ogbGVmdDsgdmVydGljYWw wEAulR820OOGm bWgxNHRyxB2xTSEavHPuo OcdNG8dEANzyqamIqrCJI xTLCBTSEVSUlkgRDwvdGQ +JFObAKY4cOkq DPxzLYMraM2lYYVhY9p0Y xErEoB4SVnnJ7EuMHEujo vmMv76hN3zRfWtPtK5JFo hN8XsjxU2KFAq kDXwKGxnTYC7U44kn5Q3T YIqWIYhPFI9vIZ5cU9paO lnbjogbGVmdDsgdmVydGl iZLluUSbwJ844 FFEckRtqRzQ9CgAoDuC6D XM2S7CsLzw7ZGQzqUbqFB 6nqXLdZXheLc1hzXrmxPh lZP3iGHRbdftc MJBveO3hEOZlkMQvpTvqZ S0cVSOogjtph745DcKoMO T1YXOsxQOpU2UyaB5wCgD yFLCdGFHcX0Bk rBVdTNwpB663AKsiPkF1D DBjnlPtT0AvHSXywNqhNy V3p4F2Bz19LdFWYNIssdw vdGQ+PHRkIHN0 nEctBCzaDHVhhW0qHRSgS 6x0NdVxNiL6YTbxW3VvVE RarfgeJe95bD9sWrIjBkI 8RSmuU7AuogD2 PRWsgDXzLHkoBVH9K12bh 6P5KKNiOTBgXAZ1tUP5mL 1hbGlnbjogbGVmdDsgdmV ydGljYWwtYWxp A504PUWxiJaxCxKdqJOpU TwvdGQ+HAKeKIK3nNqzVF reTHBjbS4wHWAmA0x6PmU tKsY8HIpiN4Sl TQBcfvhhCz95bI1rCmEaA nM1OXojL1PqclP4URAkcH AdWSrdZPN3T88si5R6QGY eHONaWSV2cCI5 dY6eqHkbrhsyfYJjcElof vJygWupOHopXKheA776LM XchItoOi58xERmpSualeN 7O6BhTswjgHH+ PB77EIStPB13oIVkcRHrb 2enqUh6DdFwAQZtSXR2gN uqDUblj6FsYCOiG83qkLL cz2X3NGVpsDui wILtFdHdqCK2mG0bKPhci vuit5kumxmlUbjfz8nctm 31bU57W66hQIubFCHtSUQ zMCUiIHZhbGln mi8isF6aNv7+YELjkIG4g JJ6eX1dKgDcZgT2TRzhR9 16PxAqyDVtTmvda8phk8h ejNj3PfGuVQDz npTngPoiMNA3a4ZkHy08M 29sIHdpZHRoPSIyMCUiIH ZchImldm8ksB4sMw7+PC9 nt6zgeo42jQ01 dHI+ZSDfMWE9mZqtWKzzS BAlcZ9zVMypSaO7TDZiXf QmyA87yUZlENblHw6guNt avJwgNY1lPJAh gifxk669TuOhh0qxTLNqe SLxETczXRB2N42tr7Y3RL MlBSWyKFF0wWU6xS6edEq nbjogbGVmdDsg mbItyEkzOBalGQtyO474B VIuyYsrJzQhpDPdR9mglr HPFR7dDxetjYX+PHRkIHN 0eWxlPSdwYWRk hF1aFTRnT7s0TxTgDsT5P BnmD0CmotW7NXNjeJAwYZ OfmZDAhW6iqvoak6mcbmn gIzAwMDAwMDt0 UMf0NKRkxJssUpFkVLF3Q sI0SIF2hGAceJ8iuKdnly ycpX8aYgg+RklOOjwvdGQ +TTSgRGF2sNrx PQbzLXXyqO4zMTHfB9k9I aEtVoL0HIddN2QfcfF5QZ DbzJPcZOTkvGEEjK4oeja pn4rynwltFxMi AHNwTMg5AAw2LYTxnRtiM yRcUBT4OkZ5ETG4vPMsnH 0kjLeerxqgkJ9eYzt+TVJ OOjwvdGQ+PHRk FAY8tGwmJSpdGBLepW0qM IHtQ7q4VwZkTzZ6PHdiI7 IvitC1SGRblXDrOIAavZK MsW1flnres6jh bpncGoUtMTGxHWp3UDo5Q LIgiGzoEzQbPRM5OeW7WK H2cZJwkU9zzIeaepwimF8 wOyc+TBI4EDV6 BC17JA69R0WdXyroqPYlw +PHRhYmxlIHdpZHRoPS txMPCoLrHptSpmWS5lHg0 yZGVyLWNvbGxh cHNl (more content not included)... Normal [facility] MAGNESIUMon 06-06-2022 Magnesium [Mass/Vol] 2.1 mg/dL Normal 1.8-2.4 [facility] Comment on above: Performed By: #### H LUDIVINAPN #### [facility] [address] [place] [address] Dr. Sherry Sanches PHOSPHORUSon 06-06-2022 Phosphate [Mass/Vol] 4.1 mg/dL Normal 2.6-4.7 [facility] Comment on above: Performed By: #### H STROPN #### [facility] [address] [place] [address] Dr. Sherry Sanches PROF 14(COMP METB)on 023 Albumin [Mass/Vol] 4.0 g/dL Normal 3.4-5.0 [facility] Comment on above: Performed By: #### H STROPN #### [facility] [address] [place] [address] Dr. Sherry Sanches Albumin/Globulin [Mass ratio] 1.3 {ratio} Normal [facility] Comment on above: Performed By: #### H STROPN #### [facility] [address] [place] [address] Dr. Sherry Sanches ALP [Catalytic activity/Vol] 83 U/L Normal 46-116 [facility] Comment on above: Performed By: #### H STROPN #### [facility] [address] [place] [address] Dr. Sherry Sanches ALT [Catalytic activity/Vol] 19 U/L Normal 14-59 [facility] Comment on above: Performed By: #### H STROPN #### [facility] [address] [place] [address] Dr. Sherry Sanches Anion gap [Moles/Vol] 14.4 mmol/L Normal [facility] Comment on above: Performed By: #### H STROPN #### [facility] [address] [place] [address] Dr. Sherry Sanches AST [Catalytic activity/Vol] 16 U/L Normal 15-37 [facility] Comment on above: Performed By: #### H STROPN #### [facility] [address] [place] [address] Dr. Sherry Sanches Bilirubin [Mass/Vol] 0.6 mg/dL Normal 0.2-1.0 [facility] Comment on above: Performed By: #### H STROPN #### [facility] [address] [place] [address] Dr. Sherry Sanches Calcium [Mass/Vol] 9.8 mg/dL Normal 8.5-10.1 [facility] Comment on above: Performed By: #### H STROPN #### [facility] [address] [address] [address] Sherry Sanches Chloride [Moles/Vol] 104 mmol/L Normal 98-107 [facility] Comment on above: Performed By: #### H STROPN #### [facility] [address] [address] [address] Sherry Sanches CO2 [Moles/Vol] 28.7 mmol/L Normal 21.0-32.0 [facility] Comment on above: Performed By: #### H STROPN #### [facility] [address] [place] [address] Dr. Sherry Sanches Creatinine [Mass/Vol] 1.37 mg/dL Critically high 0.55-1.02 [facility] Comment on above: Performed By: #### H STROPN #### [facility] [address] [place] [address] Dr. Sherry Sanches EGFR-AF PALESTINIAN 46 mL/min/1.73m2 Critically low >=60 [facility] Comment on above: Performed By: #### H STROPN #### [facility] [address] [place] [address] Dr. Sherry Sanches EGFR-NON AF PALESTINIAN 38 mL/min/1.73m2 Critically low >=60 [facility] Comment on above: Performed By: #### H STROPN #### [facility] [address] [place] [address] Dr. Sherry Sanches Globulin (S) [Mass/Vol] 3.1 g/dL Normal [facility] Comment on above: Performed By: #### H STROPN #### [facility] [address] [address] [address] Sherry Sanches Glucose [Mass/Vol] 96 mg/dL Normal 74-106 [facility] Comment on above: Performed By: #### H STROPN #### [facility] [address] [address] [address] Sherry Sanches Potassium [Moles/Vol] 4.1 mmol/L Normal 3.5-5.1 [facility] Comment on above: Performed By: #### H STROPN #### [facility] [address] [address] [address] Sherry Sanches Protein [Mass/Vol] 7.1 g/dL Normal 6.4-8.2 [facility] Comment on above: Performed By: #### H STROPN #### [facility] [address] [address] [address] Sherry Sanches Sodium [Moles/Vol] 143 mmol/L Normal 136-145 [facility] Comment on above: Performed By: #### H STROPN #### [facility] [address] [address] [address] Sherry Sanches Urea nitrogen [Mass/Vol] 31.0 mg/dL Critically high 7.0-18.0 [facility] Comment on above: Performed By: #### H STROPN #### [facility] [address] [place] [address] Dr. Sherry Sanches Urea nitrogen/Creatinine [Mass ratio] 22.6 mg/mg Normal [facility] Comment on above: Performed By: #### H STROPN #### [facility] [address] [place] [address] Dr. Sherry Sanches Coding Summary.on 06-05-2022 Coding Summary. CD:[id number] G h0bWw+PGhlYWQ+SR0ZPGN mJ36iiSJoiK5QV7vEUY3O OQUYIHRHNG9ZRP2ouTI9V XuqN4EmcrIv UiiuhSHsJB89UGv5LIE8s ViwXIofpM0gdVBlE6c3Ux OrWX54aC17GWfjPMYoXpT 3LjZpbjsgbWFy R4wjYmTnzTYyMwb+PHRhY mxlIHdpZHRoPScxMDAlJy LsiFooPI9zZa1pLHEoRUA vbGxhcHNlOiBj g5srNTKiTYbhGM6asUukS 4RwzKV5QGRwj3n1Ce27hX I+YBIhAWT4lIeuUKxux09 9RhUvq7giVIM3 cICrMLxyQQP8Q92ps2U0Y KBzQEGhAOP6uYG6yG4kwG ghyabwX9McbGLbXuA2BPK 9sQJkkV3eoAbz dpizsK0zQri+T08CJA1PT JBFSO1MPix0C6UzGehnqW I+IO03MDIqXC64dZGkaMB zo3krdHu9DtNe ZXMeSAC3iQhuNSdve5FkV LVhJ47ckLGow4D4NHJeiR nbqFZjAvPlxCX7hP2yQGl xugzkw0ehrlpf Xmntc0xtmj03qN05D69gK YrnPAYdFFB7PPSoHVNmsM bwvh2lpY9iQv1+TPwvr4b ua0ljkRd7MsKi KCWswoStyTghBNN8i6AwF q67F2UtzFmgo4ZtRli2xj 23aPRjg5H2rPW4JGzmJUY qsS0zSFahUsK7 HMJbOnZrdS31gVJgRNgrO o2atGgceUhnMH9eBJVskh cvMFQaaJ7kZMFdjBDyyTd aWC6sKXJhziwa z971XtKgGRX3YUXmdPBcB 3OahJ9rPxFvFISxQLXsE8 IjtZJkVBfiP597LGrcNpA 2NJMdugCrC5Tz YKVhqKqqVcA5k4D6Zd8Xj 0SlhvdjWOZ7PDyoSFGbBe O1AhSiQtM9G4WfFsw8WSJ oiEshCW6mD5Gk SZHbvzwbxgogcMH4EUJsI WVndH15iGOrEUsdNi9hw5 S4n838QWLkMGUhuT15Zy5 udDogMTBwdCBU eR9qjrcbf4yrmffnBoBsA KWgURu4EKu8XLQqtIuoGe GxLJH9XiT9YFY7yVXkaV0 btKqriochhR7k Oyc+H80zdJ1mKBQ3OUC1j xuhFXHgqsQhXF61MN27J2 RyPjwvdGFibGU+PGRpdiB tbDbdYF6kDtFp i0gvs1ScKIveK3RtNCJqC KaaPzv8VCDeZDC3vWN1rZ 6yIHKhOHtxm6V9vJQ6D2O qrsGigo7zy5fu KMTnKGabI09cgGWkf5L5S HZgwXC3QYWuhPgpSuCizY 93Oyc+NWLvlDgrw7HxZfu sw8rjp2lpxNm4 PdIbGJNmuqOljPsiZLF9s 0LhFo14Y98cIDkcHEGxXN DeKNCpMITiwLdhfg4yyI1 wIi8+PGNvbCB3 dEJ1kR7aPZHpMkO9XSsdH 179LzZupNBsSakui9kqk3 splGo6TiHdPTLijiDyhWj oNJV8g3EkZd08 X78vKRrdQQWoNWXgVYTnC YVweCrgoy2xsN5hWs7+PC 9lp2nest94cZ96yHQ+PHR nQGD5mTtwOEms NKSbyX3dTMnhEcW0LEYoO dLudA69pRXkRFbcYf3quH hrxIkpYY3eTHFedxkfr13 8TrGaj5hbVZDx pWYiWGxpXWO4H51wf5J1T VAqQRTtHYV8wUB3lH5ysU lnbjogbGVmdDsgdmVydGl tGYwnTAjiH090 IHRvcDsnPlBhdGllbnQgT fAaQUi4H5CiCre1SWXdpB cjTC3oxUOzXKwnBr0pvQw lbCqbHL4rTUUq godjg751ToAzm8brYPPvk OWnYPwdEJD7N96qe5R1KV NiUOPvZYU7lKO0nE4dgEe nbjogbGVmdDsg zvMoxJdfUWopMMffF695T HRvcDsnPkJpcnRoIERhdG Y6ES29WJ59dGEtx3P1kID 2I9LxDFNtyvyo lxjqaBV1OWEtLLZltM98I i8ymLlpXz9xKAHcSGM2ND NooGAjB4AppS6iOkMnKHH tRDLzF1ShwRYb JIrqA014ZFqtQbJ7MZKpd fQyP0MtQTIcmRnrCvQ9b7 L1Os2LM1L7XW72WR59uWH dt8L5dSG2Q4Ys TKAqzmuxfjcvdSL8PMRiY LZmeO47Xr7lrGkoHv1lSS GpQGF4QMHtgEOyE5AhsL6 yOiAjMDAwMDAw M0MlaXReHJiiQ643EGwaS oU6GPWveyRhV7XhKSIazV slLqP5k8C7Jp7TYWv2SS1 9LA78xFFzb3D9 gZJ0J6YqKIEeujkpwekob UT4WQVwVSKdnA56Hs3gwB xlBs2kPFNwWCD9IJVwmKQ cD2SguI2wOiVl GIPnBYGkU2HraSNhIYsrY 925WQocRkF1ILCuryOcZ6 XfAPAekNhvTdH9x0B9Tf3 WWEMrHH82PRH4 xPJ0ND87DZ47B5PaYsqbu GFibGU+PHRhYmxlIHdpZH RoPScxMDAlJyBzdHlsZT0 sFa9gRKPbKSRt eIdyrVRsHkDzj6qmGNZkG EaoEM3qlNivC3OyaXB5JH Wwn5j2Rl25Y76gD8BoxST +TUVajUF5gUT0 kF4xOkHvZfC2RPveU520A dHrhUMyDaepf7tvj7ulcV s6PwC6MWUijiDsmWgeSSK 9z4KeEx69P82y IHdpZHRoPSIxNSUiIHZhb Fclxr1ftZ5zCw9+PGNvbC A6kNR6kM9fByHnOsV7NEa dC844RnXxtEIx Hhfod8bnp2hafIe5LrXlD DAdmwLtkXzhCDW1l5WuEp 21D0LdcUbyx1NdRmm7zg6 8wFRnn7B6jVB4 N8SjHLZmqxolnHLrwHyrZ U8xPLChagpfIVQziE7dTS YhD8a4ZgQqIaX8BLrxI0I igjJ8DMDkhKWb IYppWLB9X31ch0D4JVEkU KGeLIA6gIV0eE4lyAikkn ogbGVmdDsgdmVydGljYWw uOMgnK868XKXd dQmoLZPqdR1gWODzjDXgz YszXB5mWLPilxlfInbFKX xTLCBTSEVSUlkgRDwvdGQ +KQMrTOW2dWbt ZQkeKMVmyW2rJSQfO7v1D uBuXgF4LFhfV4MrAYJbfe fbTn56wU2gPrAvDfO7QTl jS5FswoC3WGNc rIBjWOznVIR7Y39fg2T3V EWrBTEuPDW4mCI7nT4ybH lnbjogbGVmdDsgdmVydGl pLDopUTrkN163 NVRelQikQbB1EvSbEhA5R RM8H3HvAwr0IUSpeMgtSQ 6fqWFlXYemDa4yxOosuIy cFG7kGBTyjewe PPNghI5kFAHhhQRsrNtjO H9wBUPhfceax795KcVwUN B4PTFyvKJzT0DegM6jLeB iRGQsTUGiJ4Wo nMQkIYuwC113QKrcPdM3H OLakuQfH6SrSBAnxYghLd S7k0C0Ut59KhOPYPRjmtg vdGQ+PHRkIHN0 zEgnUYgxBNXhpX9rYEXoX 4j5YvRiHvS4AOdjH7UcIV BiptpiOl67tR1fBkHwPzV 7TMpfM4QpjjH0 SACmoVViDYdqEGH3H29vk 8G5XQGhDYVhFFB2nHD4eX 1hbGlnbjogbGVmdDsgdmV ydGljYWwtYWxp D234NLPbyWraVrTgnAHhZ TwvdGQ+LKWjARP3qXbrZC dnCRPeiN3hPIJbA4v1TwK nVpU4QOvfP1Es RYEtfdweSi31hQ2zRdYtE bW7EUqdS1XausY2ALZnkO RlYRyxSFW0T98jc0T1OGQ sVMYuQMO6jAH2 fH4hqPqqgfcqzHXjmLubu oQjvMoyDMddXXvbP967SA HoqLbiUvFkbE1hCLNqNZt lbWVudDwvdGQ+ XE85bh31F8NxBtwcRme1D AUdVLX9hJZ0mV1hUMSrMO nfx0L2vFS0T7BmliMqzz3 gv1fuGTIwFZyy M40tmTBhu3W2TONmmLY4E FSylVrvQaGhxH53Wze+PG SlpSjam7FhMiwve2avc8j trJe7MrOtALZb pkWvsKsrHVV4h0QbHd41Y 29sIHdpZHRoPSIzMCUiIH IwpWlled8gwF5mWl5+PGN zoXV2aZE5sK2t IhYqFyJ0BFbkS280RbNoa ATwHhjzn7hzu4rkuUx6Pb OeVXKvjxRuaLwrOVS9a3G cBe11T3ZsjRuz o9VqPed7bd42jBMtx9E6d SF9B0CuFMQoumlsoWJicG zcOH2oHGOwfezjTPYlkX1 pXIPfT9o2McPx VhJ4VZheP8YylyG8UEOgt WTfBMNmrFXUdY7didaqu9 htznyfJuPqYFQlFTh5CHa 0LWFsaWduOiBs YWH1LpZ1KWS8qLEndW9sa FkvybiyyN7gHon+UGh5c2 bicZQrTN7dzJC6TX18JI8 7vOHqn1Q7aMU1 O3HtLWBzfnzryxyveXO3N OBfAGCalT99Gh0luQjpCg 2ySPFhYDY8KHIxxZWwR0L tpP0aMfKaBWYp CYJyF9CgeFPzMYxqB622V HilMdQ3BONmcxIqT4KoFC ZafQtrWyF7q6V7Td6FXM3 5KY89QK75tUHu a5J3tVL0E4ZrSZUorxlkl mfwhUP4ZKXiGTSxmJ62Cm 5fzAxqCf8bYZVdRGG0QKD hhNLtW9OnuR8p OxZkWKEdHSOcJ2SkvTAiS LvrR991PDjtJqJ2HXRnuz ClZ3QlTDPrsYdwQbC6v6P 7Zv6SEh59XX00 OR18fDJva4H7dBV1P2IkZ HZvuneiiykfkBA2STSpNN BizQ11Wu9irPpbQm3dJVN fFYZ4PPHzjRVd U6CenX6xXiJnKEAcFAAdX 3AieUEwYRczC788WWxiNw A5PGRyerIhX9KoFCIckZz gOhV3t5U7Uz0Y LVgaorg0P4RuFjedxHT+P I06BTMvPZ31qNBcfTOml1 pobXx7LxNxFWItWQO7bUg dEZnkr8FdUNRe Y29s (more content not included)... Normal [facility] Physician Orderon 06-05-2022 Physician Order [id number]#1 .00CD:127 Normal [facility] XR Spine Cervical 2 or 3 Vie wson 06-03-2022 XR Spine Cervical 2 or 3 Views Exam Date/Time: 06/02/2022 13:51 EST Reason for Exam: m54.2 Report IMPRESSION: REMOTE INTERNAL FIXATION C3-C7 DISCUSSED. 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 NO ANTEROLISTHESIS IDENTIFIED ON EXTENSION. CLINICAL HISTORY: m54.2 COMPARISON: NONE. FINDINGS: 2 views. Internal fixation C3-C7 with posteriorly placed screws at the C3, C4, C5, and C7 levels. Screws secured to bilateral vertically oriented rods and a horizontal bracket. On flexion, a 4.6 anterolisthesis of C2 on C3 is identified. No anterolisthesis is visualized on extension imaging. Diffuse disc space narrowing C2-3 through C7-T1. No acute fracture. FINAL REPORT Dictated: 06/03/2022 10:34 am Hamzah Whaley MD Signed (Electronic Signature): 06/03/2022 10:34 am Signed by: Hamzah Whaley MD Transcribed by: JACKIE Technologist: [facility] Consent for Treatmenton 05-12 Consent for Treatment [id number]#1 .00CD:127 [facility] Consent for Treatment [id number]# 1.00CD:127 [facility] Legal Correspondence Officeo n 06-02-2022 Legal Correspondence Office [id number]#1 .00CD:127 [facility] Office/Clinic Note-Physician on 06-02-2022 Office/Clinic Note-Physician [id number]#1 .00CD:127 [facility] Patient Correspondenceon Patient Correspondence [id number]#1 .00CD:127 [facility] Patient Correspondence [id number]#1 .00CD:127 [facility] Patient Correspondence [id number]#1 .00CD:127 [facility] Patient Correspondence [id number]#1 .00CD:127 Normal [facility] Patient History Officeon Patient History Office [id number]#1 .00CD:127 Normal [facility] Patient History Office [id number]#1 .00CD:127 Normal [facility] Physician Orderon 06-02-2022 Physician Order [id number]#1 .00CD:127 Normal [facility] Physician Order [id number]#1 .00CD:127 Normal [facility] CULTURE URINEon 05-22-2022 CULTURE URINE Culture Observations : GREATER THAN TWO ORGANISMS PRESENT. PLEASE RESUBMIT CLEAN CATCH MID-STREAM URINE IF CLINICALLY INDICATED. Normal [facility] Comment on above: Performed By: #### U RCX ####[facility] [id number] [id number]. Sherry Sanches UA (CLEAN/CATCH) MICROSCOPIC IF INDICATEon 05-20-2022 Bilirubin Ql (U) Negative Normal NEGATIVE [facility] Comment on above: Performed By: #### C BC #### [facility] Laboratory [address] [place] [address] Dr. Sherry Sanches Clarity (U) CLEAR Normal CLEAR [facility] Comment on above: Performed By: #### C BC #### [facility] [address] [place] [address] Dr. Sherry Sanches Color (U) LT. YELLOW Normal YELLOW [facility] Comment on above: Performed By: #### C BC #### [facility] [address] [address] [address] Sherry Sanches Glucose Ql (U) Negative Normal NEGATIVE [facility] Comment on above: Performed By: #### C BC #### [facility] [address] [address] [address] Sherry Sanches Hemoglobin Ql (U) Negative Normal NEGATIVE [facility] Comment on above: Performed By: #### C BC #### [facility] [address] [place] [address] Dr. Sherry Sanches Ketones Ql (U) Negative Normal NEGATIVE [facility] Comment on above: Performed By: #### C BC #### [facility] [address] [place] [address] Dr. Sherry Sanches LEUKOCYTES SMALL Abnormal NEGATIVE [facility] Comment on above: Performed By: #### C BC #### [facility] [address] [place] [address] Dr. Sherry Sanches Nitrite Ql (U) Negative Normal NEGATIVE [facility] Comment on above: Performed By: #### C BC #### [facility] [address] [place] [address] Dr. Sherry Sanches pH (U) 5.0 [pH] Normal 5-9 [facility] Comment on above: Performed By: #### C BC #### [facility] [address] [place] [address] Dr. Sherry Sanches SPEC GRAVITY 1.020 Normal 1.005-<=1.02 5 [facility] Comment on above: Performed By: #### C BC #### [facility] [address] [place] [address] Dr. Sherry Sanches UA PROTEIN Negative Normal NEGATIVE/ TRACE [facility] Comment on above: Performed By: #### C BC #### [facility] [address] [place] [address] Dr. Sherry Sanches UR MICRO IND INDICATED Normal [facility] Comment on above: Performed By: #### C BC #### [facility] [address] [place] [address] Dr. Sherry Sanches Urobilinogen Qn (U) 0.2 {Ellen'U}/dL Normal 0.2 - 1. 0 [facility] Comment on above: Performed By: #### C BC #### [facility] [address] [place] [address] Dr. Sherry Sanches URINE MICROSCOPIC ONLYon BACTERIA TRACE Abnormal NONE SEEN [facility] Comment on above: Performed By: #### C BC #### [facility] [address] [place] [address] Dr. Sherry Sanches Bacteria identified Cx Nom (U) CX ALREADY ORDERED Normal [facility] Comment on above: Performed By: #### C BC #### [facility] [address] [place] [address] Dr. Sherry Sanches CAST NONE SEEN Normal NONE SEEN [facility] Comment on above: Performed By: #### C BC #### [facility] [address] [place] [address] Dr. Sherry Sanches Crystals LM Nom (Urine sed) NONE SEEN Normal NONE SEEN [facility] Comment on above: Performed By: #### C BC #### [facility] [address] [place] [address] Dr. Sherry Sanches Epithelial cells LM Ql (Urine sed) FEW Abnormal NONE SEEN /RARE [facility] Comment on above: Performed By: #### C BC #### [facility] [address] [place] [address] Dr. Sherry Sanches MUCOUS SMALL Abnormal NONE SEEN [facility] Comment on above: Performed By: #### C BC #### [facility] [address] [place] [address] Dr. Sherry Sanches RBC NONE SEEN Abnormal 0-2 [facility] Comment on above: Performed By: #### C BC #### [facility] [address] [place] [address] Dr. Sherry Sanches WBC 2-5 Abnormal NONE SEEN [facility] Comment on above: Performed By: #### C BC #### [facility] [address] [place] [address] Dr. Sherry Sanches US THYROIDon 05-07-2022 US THYROID EXAMINATION: US THYROID HISTORY: Primary malignant neoplasm of thyroid gland COMPARISON: No relevant comparison available. TECHNIQUE: Sonographic images of the thyroid gland were obtained. FINDINGS: The thyroid gland is surgically absent. No focal ultrasound findings to suggest recurrent or residual thyroid tissue. No focal mass or lymphadenopathy IMPRESSION: Remote thyroidectomy Electronically authenticated by: LONNIE MCCORMACK Date: 2022-05-07 16:17 Normal [facility] Coding Summary.on 05-02-2022 Coding Summary. [id number] G h0bWw+PGhlYWQ+MN3NLQZ cH43dsUMayB9EJ3mNYU2I FYKJUADPZX3IAI6wcDV3O ShsC5ZyxfEo FmczqSKzWN97QNw7AKR7q TuxJTmhdH3eoFKqQ7r6Nh YjUU40tZ13FFsmNIVfTzI 3LjZpbjsgbWFy T0unMbJxfLMzVld+PHRhY mxlIHdpZHRoPScxMDAlJy YrdAlbXK2dDx2vAHEgDZX vbGxhcHNlOiBj q7hsYASjZYhdFF8wjIqcI 1TdgWQ5JARxc9x4Nl38rL I+JFUjUPI3oZefZQiqt85 3LuFio6xpPJW8 tYZyHKrdMBK1N91wh1E0R JLiSPRlSDL8rIM3aX6fkJ brodxzZ1KqfTAvQgV2VHY 6yPOikQ4quQwq bfnvqG5rGih+Q66VPM7OT UJBUV1ZAjk3U2VzDruohG I+OB41LOFyVB01vGVrkDB lb4dklZa4WcPu DKQwAJT8uEqlEUged1LgI BMsW28crYOqr3Q2GDKhqI ytsTTiIdJrmQE3zF6nWQt symudu5kpvmvw Xeqgy7yiyu33nN34Q99wS NrdDXAbAMH1RFIlEPNzyV vhnu3zuA9hYy1+ZEtoj9c cj6jpiZi8TdCy TKDwtdBhjFtxAEE3p8EcB s40Z4YhsWnki6OgDqd4ro 25hJBfp7T5dTG7IOaiQNM wzF5qEQcpWxT7 PAOcGaEidG70nELeVFvlU w9udCvyoWqzYV5yQPLkfy qlVEQmgX9jMEHdhRKdhZz dYP5nWJVtzjkm f034PcXuGHS5MATgvSJhV 4MhdD6rPjGtMNYmBSYaN2 MkmROfULwdG228FIwoKbU 7DSEnjoNdA2Xw YLYmfXcmUyJ5o7S9If0Qn 2WvfbioDXJ9EWdqLXZfAw OdLuHcVzU1X7CwKly7FZP inVwcTS0bK2Uh VNZkcmedidazsLF2KSNhT TFocB28mHXnFOntRm0vt4 O9z520FTFjJGOvxX27Yp7 udDogMTBwdCBU pP6nnyeve2nwweuxYlCtH PLnCDv3YFj0KZBbuYkzZb TxUKN2OxH8IQA0dDWhgZ7 aeRnznekztI9e Oyc+C25qrB7gHQK5JPM5t mghSLDnavAzFT84RU89Z5 RyPjwvdGFibGU+PGRpdiB vbVcyZX5bIcTs z7iec5QvHMgxD2QlDQNmE GepTyw1VVVrCYD2fFU6hU 4tWGJsGWubs6U7cMY5O1C tujOehw5qm8im NRQvXXggQ11gaJBud4G3Q ZEbdSY9RFWkeGaaEqDlfB 93Oyc+ZFForRnci5PcDld kt9aiv0lndHp4 ZnIfQGFkvzSpvExdUQP5p 1DlLs64Q60wLEowSPLwDO OvIBBjSDFrfWqjsp1vrK4 wIi8+PGNvbCB3 hWI8hG8hMUPuTlY4LEnzV 960QxDvcRBfOhvcn0qkt7 zqdBm1NtMqQOXkeiKssCv pDXY6c9VlYr94 K91rREyfZZMzBHTkYJQaN PQjaVdzjy4stG9sTg0+PC 4ez8eksv96gU86aRY+PHR wAZN4pDkuATvv TXJfhG6gAXpyBmF2NYGnJ yJuuC96kLXhZWkiHl5rqZ qpwExlKB4dOEEgjzzmi58 3PwSko7rqXXLz fNViHYraNUU4F95kt6S2S SEnYYBfWFD0jNV3vR4uaK lnbjogbGVmdDsgdmVydGl pXQwpVEytE898 IHRvcDsnPlBhdGllbnQgT tRuTXt5Y0WgBpu0MDXxoF nnHI0agPGtCXlcOf3asMl uwLvnAY0qDLXa lzcwm089PnMda4odPNChr TCqCTbfOZH1F51ol8C2AA VyRKYtKPS0uWG1qS8fcBq nbjogbGVmdDsg kwSclZoxETyyKWvlA833X HRvcDsnPkJpcnRoIERhdG N2TO57ZW42zLGgr6G2iBZ 2L3QfFWZlrcqw lqxzlLU2RLYbWJVulC99C z8nwKtkHv7wSQNtTZR3RH VjlYUfS2YltX6uPqGbWCU jUQJrP9PztUTq OSvyP857MEqaMkL7IEJkc wKuH3AzHGAtdBihOtA5f5 D7Hp0XK2C5TH90RG69nPH lq3K2hLE6F7Ax EWMzgbbjhgafqIU8LCFxO VGlrI81Xb1thVkdNf4pQO EaJYS4BYOljXPlK7HzsM6 yOiAjMDAwMDAw H7EouXRaQFasX823RLdlY iL3KBDrrpNqY1JkTUVgdC frFcB2x3K1Yn7XJUh1YD3 7GD79yXPrz2E2 jCB4I8UnOWDgrzogwgoas RI0HKThQPYhpT96Af6niA iqOu0bSEVnMNQ5HFOrbWF qQ6BciO6mNhGn TLLwJFIgJ4OgbEMtVVqqI 147YUitZtQ0JVEioeGrR4 PbVCChlKafYkS1v6W1Jt4 GGTIiWA05AZJ7 oDV5IU52TF38D2UbEhqdq GFibGU+PHRhYmxlIHdpZH RoPScxMDAlJyBzdHlsZT0 kXv6aHYKmTDFk fYgzvDSlHnGmr9vwAILlX PjuJM3jvKsoG8MleUI5LH Ijl1t3Ir79C00vD1LwtOV +JWEorEA1qJS5 mA1iUfCtHzT1ZDcsD664Y hFygLAmAweku5xal4knwW c4DqR0ZFArqmHocZbmISP 5t4OlDk54O71q IHdpZHRoPSIxNSUiIHZhb Yuftp0gpJ8lLm5+PGNvbC J2nRF7rC4gDaPcVbP0CXm iX861QgShuOPq Gpuob1yfw5ahxUe2VmRqS LCuucKzkNjeFDF5t3LfEu 28U1MloLhoi5VmRro7zq1 5rPLfo0A8sTB7 U8XnKPGpxjnfvFTcbLhjJ Q0cAAZbeirpOLYfdW4lGK TnW6d7ZvTzIwT2KYmbB5X hxrB3VZJkpQYl MEewCQN2I46rl7L6CWFtV AImUDZ7fZN6oW2dgTvaey ogbGVmdDsgdmVydGljYWw nLLcgK125DICz qUoqTVAsgM9uFHNbcFYta GnwKZ9uNSQcflurQqjBDT xTLCBTSEVSUlkgRDwvdGQ +NVNtQBU1uLqm WYigRCJncT4nEDNiX8w1Y rZyWlB3ERbnA2JiLJVtzq ryLt87fN3oKuMaPpM6HXi tT7YxtcW4DZEz pBUlCMuvKDU1X03dg4Y5R YYeQZAgOMA5oEG1kX6zlX lnbjogbGVmdDsgdmVydGl dSSunPCcjI624 DBDnpJklUmC0BlJwYyN8X HZ1L4LbCiu5YGLuzTzfSI 3ljNPmEHmvDt9edLxrhTa fKH3gPZFfplnw WGHtpW0hBHPzzKNcxMxbG X5aHQGcvzthn926LmCbJT O1VIYjmPTaX0EkaQ6qGnW vAYWzUXOdF3El tCMbYIgyH686SOckBcE3F MQentXyQ6YsSZFciKzaHm A9j6T1Fv74SpVWTCPyvlk vdGQ+PHRkIHN0 cNtxSMzfSIIkcI5lPGLbC 2e5ZtUcJcP8GBhgA9KiJT DadddgYu50mH8cDlVbDjO 0HTzaJ9FhyjE3 WIXsdRWaRQraMJB4R53pf 9M5CDWtGPFvOQI5zVE2kM 1hbGlnbjogbGVmdDsgdmV ydGljYWwtYWxp J896ZJLbfJueBiGadWWdX TwvdGQ+SWVvQEO9vQlzBN vkCNQhqK4mDJQiC1b2WvZ eBnZ1WGyvU8Ac OSNpfdcbSd11rQ9aRfOuQ iT0RRkqK5BfaxS4DHBqoA QlDRppWPQ1L52de4G0SFO zZZIoUTM1bQM2 hU2yjWxncqiqnRHhxQskb jFboEbwMHebHLhzY224MZ YtrYhbXsHbsM3dIMByFDm lbWVudDwvdGQ+ VW59ol78R1VmZztbHiw3E EUhMEC9rNO4xM7fBLCfNG bzh3I9tTM4S7NwkdPflv1 nv8pcEQEgJRgh K06qjKElc8F5RLVmmWF6G OOyxJouHtKkyP12Kiy+PG BhtEckf0WbDvjoa9kou8m fiKv7OeLrMBXp dvQxgFljGBT8h1BhEf68W 29sIHdpZHRoPSIzMCUiIH MzvXslcy9jfE8hQq3+PGN cbNW4uPV4qT9f HuIdLjV9JTorR711KfUgw ZXnYhpvs0dwl6qcqXm6Mj BbTPXtgwIvlEtdALC0s7A oMf89N0JkwDlh x6FrXrs3ki61mKXgs4O1c RG6V9ViNDEbkjnqfDOvcQ lqMM2cMMKhvbagZKKmaK3 fOYPbH1x1DkLh MqR8DCnaG2PkucD1XLXte UCfMMJemOBBzU8zvrpyx9 bebhrtJjDsGXFeTQz0BYq 0LWFsaWduOiBs JCT3DlB5VPG0wJBoyG7tg ZectycclN5vWqw+UGh5c2 ramYDoZA2luSM3YT28AD7 0dLHqv6B1bFM4 C0AoGTRbrhhmxfrjbXB0G XBgEOIomU34Fv0kjVziUt 3rBSWsRQF6FMYsuPZzQ4E vzN7aDqCgXELa JMNvW5AlhYEoKZzlA079Y WtqCcW5ZNLthqDgP7RfIU DirQazRwZ9b6M2Kh9RXE8 7KK01WB44pREh o9X7nFA9I2KiZENfjtpor zamsCO9IAAeUBBmtY41Zb 2pfHypKh9yAXTwHBW7GTR uhMYvL4BgiS3d ObWqUVVhZFXxE8SxhIMtV CwmZ772AGmbTcN6FZQrun FkV5BnAPOnbBkaKyK7o2W 3Za5AOo24CS14 SY30kWRxd1Y0jNL0Y4UdB PWdwycmphukaND9ALHzUW ViqE06Lr7reRvuGq5wIEK iKXM1FDWdmRIx F6OagJ6wUlFkWNXuBHOfF 4TsaTDuSXvzA794UPdoYi C1UYDainElC5RcXJEqpQm xPmL7d2U6Kk5Q SIvxzbn3B0JiXhyjwCM+P V63ACHkGZ48pROusPPtq4 qqwZl0YxFdUEGeUNX7wTe gZJafw7OnEWFf Y29s (more content not included)... Normal [facility] THYROGLOBULIN ABon Thyroglobulin Antibody <1.0 Normal 0.0-0.9 [facility] Comment on above: Result Comment: Thyr oglobulin Antibody measured by [employer] Performed By: #### C BC #### [facility] [address] [address] [address] Sherry Sanches TSHon 04-24-2022 TSH 2.515 uIU/mL Normal 0.358-3.740 [facility] Comment on above: Performed By: #### T SH #### [facility] [address] [address] [address] Sherry Sanches CULTURE URINEon 04-07-2022 CULTURE URINE Culture Observations : HERB TO FOLLOW. Isolate 1 Streptococcus agalactiae 50,000 cfu/mL of Normal [facility] Comment on above: Performed By: #### U RCX ####[facility] [id number] [address]Dr. Sherry Sanches BNPon 03-31-2022 Natriuretic peptide B (Bld) [Mass/Vol] 98.0 pg/mL Normal <=900.0 [facility] Comment on above: Performed By: #### C VDAGS #### [facility] [address] [address] [address] Sherry Sanches CBC AUTO DIFFon 03-31-2022 BASO # 0.0 103/ul Normal 0.0-0.1 [facility] Comment on above: Performed By: #### C BC #### [facility] [address] [address] [address] Sherry Sanches Basophils/100 WBC (Bld) 0.6 % Normal 0.2-2.0 [facility] Comment on above: Performed By: #### C BC #### [facility] [address] [place] [address] Dr. Sherry Sanches EO # 0.2 103/ul Normal 0.0-0.7 [facility] Comment on above: Performed By: #### C BC #### [facility] [address] [place] [address] Dr. Sherry Sanches Eosinophils/100 WBC (Bld) 3.3 % Normal 0.9-7.0 [facility] Comment on above: Performed By: #### C BC #### [facility] [address] [place] [address] Dr. Sherry Sanches Erythrocyte distribution width (RBC) [Ratio] 13.7 % Normal 11.0-15.0 [facility] Comment on above: Performed By: #### C BC #### [facility] [address] [place] [address] Dr. Sherry Sanches Hematocrit (Bld) [Volume fraction] 37.7 % Normal 36.0-48.0 [facility] Comment on above: Performed By: #### C BC #### [facility] [address] [place] [address] Dr. Sherry Sanches Hemoglobin (Bld) [Mass/Vol] 12.4 g/dL Normal 12.0-16.0 [facility] Comment on above: Performed By: #### C BC #### [facility] [address] [place] [address] Dr. Sherry Sanches IG # 0.01 10e3/ul Normal 0.00-0.03 [facility] Comment on above: Performed By: #### C BC #### [facility] [address] [place] [address] Dr. Sherry Sanches IG % 0.2 % Normal 0.0-0.5 [facility] Comment on above: Performed By: #### C BC #### [facility] [address] [place] [address] Dr. Sherry Sanches LYMPH # 1.3 103/ul Normal 1.2-3.8 [facility] Comment on above: Performed By: #### C BC #### [facility] [address] [place] [address] Dr. Sherry Sanches Lymphocytes/100 WBC (Bld) 20.5 % Normal 20.5-60.0 [facility] Comment on above: Performed By: #### C BC #### [facility] [address] [place] [address] Dr. Sherry Sanches MANUAL DIFF REQ NO Normal [facility] Comment on above: Performed By: #### C BC #### [facility] [address] [place] [address] Dr. Sherry Sanches MCH (RBC) [Entitic mass] 30.2 pg Normal 26.7-34.0 [facility] Comment on above: Performed By: #### C BC #### [facility] [address] [place] [address] Dr. Sherry Sanches MCHC (RBC) [Mass/Vol] 32.9 g/dL Normal 29.9-35.2 [facility] Comment on above: Performed By: #### C BC #### [facility] [address] [place] [address] Dr. Sherry Sanches MCV (RBC) [Entitic vol] 91.7 fL Normal 81.0-99.0 [facility] Comment on above: Performed By: #### C BC #### [facility] [address] [place] [address] Dr. Sherry Sanches MONO # 0.7 103/ul Normal 0.3-0.8 [facility] Comment on above: Performed By: #### C BC #### [facility] [address] [place] [address] Dr. Sherry Sanches Monocytes/100 WBC (Bld) 10.5 % Normal 1.7-12.0 [facility] Comment on above: Performed By: #### C BC #### [facility] [address] [place] [address] Dr. Sherry Sanches NEUT # 4.1 103/ul Normal 1.4-6.5 [facility] Comment on above: Performed By: #### C BC #### [facility] [address] [place] [address] Dr. Sherry Sanches Neutrophils/100 WBC (Bld) 64.9 % Normal 43.0-75.0 [facility] Comment on above: Performed By: #### C BC #### [facility] [address] [place] [address] Dr. Sherry Sanches Platelet mean volume (Bld) [Entitic vol] 8.4 fL Critically low 9.5-13.5 [facility] Comment on above: Performed By: #### C BC #### [facility] [address] [place] [address] Dr. Sherry Sanches PLT 270 103/ul Normal 150-450 [facility] Comment on above: Performed By: #### C BC #### [facility] [address] [place] [address] Dr. Sherry Sancehs RBC 4.11 106/ul Critically low 4.20-5.40 [facility] Comment on above: Performed By: #### C BC #### [facility] [address] [place] [address] Dr. Sherry Sanches WBC 6.4 103/ul Normal 4.0-11.0 [facility] Comment on above: Performed By: #### C BC #### [facility] [address] [place] [address] Dr. Sherry Sanches LIPID PROFILEon 03-31-2022 CHOL-HDL RATIO NORM SEE BELOW Normal [facility] Comment on above: Result Comment: 3.3 - 4.4 LOW RISK 4.4 - 7.1 AVERAGE RISK 7.1 - 11.0 MODERATE RISK >11.0 HIGH RISK Performed By: #### C VDAGS #### [facility] [address] [place] [address] Dr. Sherry Sanches Cholesterol [Mass/Vol] 174 mg/dL Normal <=200 [facility] Comment on above: Performed By: #### C VDAGS #### [facility] [address] [place] [address] Dr. Sherry Sanches Cholesterol in HDL [Mass/Vol] 71 mg/dL Critically high 40-60 [facility] Comment on above: Performed By: #### C VDAGS #### [facility] [address] [address] [address] Sherry Sanches Cholesterol in LDL [Mass/Vol] 59.6 mg/dL Normal [facility] Comment on above: Performed By: #### C VDAGS #### [facility] [address] [address] [address] Sherry Sanches Cholesterol.total/Cho lesterol in HDL [Mass ratio] 2.5 {ratio} Normal [facility] Comment on above: Performed By: #### C VDAGS #### [facility] [address] [address] [address] Sherry Sanches HDL NORMAL > or = 60 mg/dl - LO W CARDIOVASCULAR RISK <40 mg/dl - HIGH CARDIOVASCULAR RISK Normal [facility] Comment on above: Performed By: #### C VDAGS #### [facility] [address] [place] [address] Dr. Sherry Sanches LDL CALC NORMAL SEE BELOW Normal [facility] Comment on above: Result Comment: <100 mg/dl OPTIMAL 100 - 129 mg/dl NEAR OR ABOVE OPTIMAL 130 - 159 mg/dl BORDERLINE HIGH 160 - 189 mg/dl HIGH >190 mg/dl VERY HIGH Performed By: #### C VDAGS #### [facility] [address] [place] [address] Dr. Sherry Sanches Triglyceride [Mass/Vol] 217 mg/dL Critically high <=150 [facility] Comment on above: Performed By: #### C VDAGS #### [facility] [address] [place] [address] Dr. Sherry Sanches VLDL CALC 43.4 mg/dL Normal [facility] Comment on above: Performed By: #### C VDAGS #### [facility] [address] [address] [address] Sherry Sanches PROF CHEM 8 (BAS METB)on Anion gap [Moles/Vol] 13.8 mmol/L Normal [facility] Comment on above: Performed By: #### C VDAGS #### [facility] [address] [place] [address] Dr. Sherry Sanches Calcium [Mass/Vol] 9.9 mg/dL Normal 8.5-10.1 [facility] Comment on above: Performed By: #### C VDAGS #### [facility] [address] [place] [address] Dr. Sherry Sanches Chloride [Moles/Vol] 101 mmol/L Normal 98-107 [facility] Comment on above: Performed By: #### C VDAGS #### [facility] [address] [place] [address] Dr. Sherry Sanches CO2 [Moles/Vol] 29.8 mmol/L Normal 21.0-32.0 [facility] Comment on above: Performed By: #### C VDAGS #### [facility] [address] [place] [address] Dr. Sherry Sanches Creatinine [Mass/Vol] 1.58 mg/dL Critically high 0.55-1.02 [facility] Comment on above: Performed By: #### C VDAGS #### [facility] [address] [place] [address] Dr. Sherry Sanches EGFR-AF PALESTINIAN 39 mL/min/1.73m2 Critically low >=60 [facility] Comment on above: Performed By: #### C VDAGS #### [facility] [address] [place] [address] Dr. Sherry Sanches EGFR-NON AF PALESTINIAN 32 mL/min/1.73m2 Critically low >=60 [facility] Comment on above: Performed By: #### C VDAGS #### [facility] [address] [place] [address] Dr. Sherry Sanches Glucose [Mass/Vol] 115 mg/dL Critically high 74-106 [facility] Comment on above: Performed By: #### C VDAGS #### [facility] [address] [place] [address] Dr. Sherry Sanches Potassium [Moles/Vol] 4.6 mmol/L Normal 3.5-5.1 [facility] Comment on above: Performed By: #### C VDAGS #### [facility] [address] [place] [address] Dr. Sherry Sanches Sodium [Moles/Vol] 140 mmol/L Normal 136-145 [facility] Comment on above: Performed By: #### C VDAGS #### [facility] [address] [place] [address] Dr. Sherry Sanches Urea nitrogen [Mass/Vol] 26.0 mg/dL Critically high 7.0-18.0 [facility] Comment on above: Performed By: #### C VDAGS #### [facility] [address] [place] [address] Dr. Sherry Sanches Urea nitrogen/Creatinine [Mass ratio] 16.5 mg/mg Normal [facility] Comment on above: Performed By: #### C VDAGS #### [facility] [address] [place] [address] Dr. Sherry Sanches CBC AUTO DIFFon 02-16-2022 BASO # 0.0 103/ul Normal 0.0-0.1 [facility] Comment on above: Performed By: #### T SH #### [facility] [address] [place] [address] Dr. Sherry Sanches Basophils/100 WBC (Bld) 0.5 % Normal 0.2-2.0 [facility] Comment on above: Performed By: #### T SH #### [facility] [address] [place] [address] Dr. Sherry Sanches EO # 0.2 103/ul Normal 0.0-0.7 [facility] Comment on above: Performed By: #### T SH #### [facility] [address] [place] [address] Dr. Sherry Sanches Eosinophils/100 WBC (Bld) 3.9 % Normal 0.9-7.0 [facility] Comment on above: Performed By: #### T SH #### [facility] [address] [place] [address] Dr. Sherry Sanches Erythrocyte distribution width (RBC) [Ratio] 13.2 % Normal 11.0-15.0 [facility] Comment on above: Performed By: #### T SH #### [facility] [address] [address] [address] Sherry Sanches Hematocrit (Bld) [Volume fraction] 31.0 % Critically low 36.0-48.0 [facility] Comment on above: Performed By: #### T SH #### [facility] [address] [place] [address] Dr. Sherry Sanches Hemoglobin (Bld) [Mass/Vol] 9.9 g/dL Critically low 12.0-16.0 [facility] Comment on above: Performed By: #### T SH #### [facility] [address] [place] [address] Dr. Sherry Sanches IG # 0.05 10e3/ul Critically high 0.00-0.03 [facility] Comment on above: Performed By: #### T SH #### [facility] [address] [place] [address] Dr. Sherry Sanches IG % 0.8 % Critically high 0.0-0.5 [facility] Comment on above: Performed By: #### T SH #### [facility] [address] [place] [address] Dr. Sherry Sanches LYMPH # 0.7 103/ul Critically low 1.2-3.8 [facility] Comment on above: Performed By: #### T SH #### [facility] [address] [place] [address] Dr. Sherry Sanches Lymphocytes/100 WBC (Bld) 12.0 % Critically low 20.5-60.0 [facility] Comment on above: Performed By: #### T SH #### [facility] [address] [place] [address] Dr. Sherry Sanches MANUAL DIFF REQ NO Normal [facility] Comment on above: Performed By: #### T SH #### [facility] [address] [place] [address] Dr. Sherry Sanches MCH (RBC) [Entitic mass] 30.0 pg Normal 26.7-34.0 [facility] Comment on above: Performed By: #### T SH #### [facility] [address] [place] [address] Dr. Sherry Sanches MCHC (RBC) [Mass/Vol] 31.9 g/dL Normal 29.9-35.2 [facility] Comment on above: Performed By: #### T SH #### [facility] [address] [place] [address] Dr. Sherry Sanches MCV (RBC) [Entitic vol] 93.9 fL Normal 81.0-99.0 [facility] Comment on above: Performed By: #### T SH #### [facility] [address] [place] [address] Dr. Sherry Sanches MONO # 0.8 103/ul Normal 0.3-0.8 [facility] Comment on above: Performed By: #### T SH #### [facility] [address] [place] [address] Dr. Sherry Sanches Monocytes/100 WBC (Bld) 12.2 % Critically high 1.7-12.0 [facility] Comment on above: Performed By: #### T SH #### [facility] [address] [place] [address] Dr. Sherry Sanches NEUT # 4.4 103/ul Normal 1.4-6.5 [facility] Comment on above: Performed By: #### T SH #### [facility] [address] [place] [address] Dr. Sherry Sanches Neutrophils/100 WBC (Bld) 70.6 % Normal 43.0-75.0 [facility] Comment on above: Performed By: #### T SH #### [facility] [address] [place] [address] Dr. Sherry Sanches Platelet mean volume (Bld) [Entitic vol] 9.0 fL Critically low 9.5-13.5 [facility] Comment on above: Performed By: #### T SH #### [facility] [address] [place] [address] Dr. Sherry Sanches PLT 254 103/ul Normal 150-450 [facility] Comment on above: Performed By: #### T SH #### [facility] [address] [place] [address] Dr. Sherry Sanches RBC 3.30 106/ul Critically low 4.20-5.40 [facility] Comment on above: Performed By: #### T SH #### [facility] [address] [place] [address] Dr. Sherry Sanches WBC 6.2 103/ul Normal 4.0-11.0 [facility] Comment on above: Performed By: #### T SH #### [facility] [address] [place] [address] Dr. Sherry Sanches PROF CHEM 8 (BAS METB)on Anion gap [Moles/Vol] 12.0 mmol/L Normal [facility] Comment on above: Performed By: #### C VDAGS #### [facility] [address] [place] [address] Dr. Sherry Sanches Calcium [Mass/Vol] 8.1 mg/dL Critically low 8.5-10.1 [facility] Comment on above: Performed By: #### C VDAGS #### [facility] [address] [place] [address] Dr. Sherry Sanches Chloride [Moles/Vol] 102 mmol/L Normal 98-107 [facility] Comment on above: Performed By: #### C VDAGS #### [facility] [address] [place] [address] Dr. Sherry Sanches CO2 [Moles/Vol] 30.3 mmol/L Normal 21.0-32.0 [facility] Comment on above: Performed By: #### C VDAGS #### [facility] [address] [place] [address] Dr. Sherry Sanches Creatinine [Mass/Vol] 1.85 mg/dL Critically high 0.55-1.02 [facility] Comment on above: Performed By: #### C VDAGS #### [facility] [address] [place] [address] Dr. Sherry Sanches EGFR-AF PALESTINIAN 32 mL/min/1.73m2 Critically low >=60 [facility] Comment on above: Performed By: #### C VDAGS #### [facility] [address] [address] [address] Sherry Sanches EGFR-NON AF PALESTINIAN 27 mL/min/1.73m2 Critically low >=60 [facility] Comment on above: Performed By: #### C VDAGS #### [facility] [address] [address] [address] Sherry Sanches Glucose [Mass/Vol] 108 mg/dL Critically high 74-106 [facility] Comment on above: Performed By: #### C VDAGS #### [facility] [address] [address] [address] Sherry Sanches Potassium [Moles/Vol] 3.3 mmol/L Critically low 3.5-5.1 [facility] Comment on above: Performed By: #### C VDAGS #### [facility] [address] [address] [address] Sherry Sanches Sodium [Moles/Vol] 141 mmol/L Normal 136-145 [facility] Comment on above: Performed By: #### C VDAGS #### [facility] [address] [address] [address] Sherry Sanches Urea nitrogen [Mass/Vol] 27.0 mg/dL Critically high 7.0-18.0 [facility] Comment on above: Performed By: #### C VDAGS #### [facility] [address] [address] [address] Sherry Sanches Urea nitrogen/Creatinine [Mass ratio] 14.6 mg/mg Normal [facility] Comment on above: Performed By: #### C VDAGS #### [facility] [address] [address] [address] Sherry Sanches BNPon 02-15-2022 Natriuretic peptide B (Bld) [Mass/Vol] 1135.0 pg/mL Critically high <=900.0 [facility] Comment on above: Performed By: #### B MP, BNP ####[facility] [address] [address]Dr. Sherry Sanches CBC AUTO DIFFon 02-15-2022 BASO # 0.0 103/ul Normal 0.0-0.1 [facility] Comment on above: Performed By: #### C BC ####[facility] [address] [address]Dr. Sherry Josue Basophils/100 WBC (Bld) 0.5 % Normal 0.2-2.0 [facility] Comment on above: Performed By: #### C BC ####[facility] [address] [place], [place] [address]Dr. Sherry Sanches EO # 0.2 103/ul Normal 0.0-0.7 [facility] Comment on above: Performed By: #### C BC ####[facility] [id number] [place], [place] [address]Dr. Naysumi Sanches Eosinophils/100 WBC (Bld) 3.3 % Normal 0.9-7.0 [facility] [facility] Comment on above: Performed By: #### C BC ####[facility] [address] [place], [place] [address]Dr. Naysumi Sanches Erythrocyte distribution width (RBC) [Ratio] 13.2 % Normal 11.0-15.0 [facility] Comment on above: Performed By: #### C BC ####[facility] [address] [place], [place] [address]Dr. Sherry Sanches Hematocrit (Bld) [Volume fraction] 30.1 % Critically low 36.0-48.0 [facility] Comment on above: Performed By: #### C BC ####[facility] [address] [place], [place] [address]Dr. Sherry Sanches Hemoglobin (Bld) [Mass/Vol] 9.9 g/dL Critically low 12.0-16.0 [facility] Comment on above: Performed By: #### C BC ####[facility] L[address] [place], [place] [address]Dr. Sherry Sanches IG # 0.03 10e3/ul Normal 0.00-0.03 [facility] Comment on above: Performed By: #### C BC ####[facility] [address] [place], [place] [address]Dr. Sherry Sanches IG % 0.5 % Normal 0.0-0.5 [facility] Comment on above: Performed By: #### C BC ####[facility] [address] [place] [address]Dr. Sherry Sanches LYMPH # 0.8 103/ul Critically low 1.2-3.8 [facility] Comment on above: Performed By: #### C BC ####[facility] [address] [place] [address]Dr. Sherry Sanches Lymphocytes/100 WBC (Bld) 13.5 % Critically low 20.5-60.0 [facility] Comment on above: Performed By: #### C BC ####[facility] [address] [place] [address]Dr. Sherry Sanches MANUAL DIFF REQ NO Normal [facility] Comment on above: Performed By: #### C BC ####[facility] [address]fsjtfbwc[address] [place] [address]Dr. Sherry Sanches MCH (RBC) [Entitic mass] 30.5 pg Normal 26.7-34.0 [facility] Comment on above: Performed By: #### C BC ####[facility] [address] [place], [place] [address]Dr. Sherry Josue MCHC (RBC) [Mass/Vol] 32.9 g/dL Normal 29.9-35.2 [facility] Comment on above: Performed By: #### C BC ####[facility] [address] [place] [address]Dr. Sherry Sanches MCV (RBC) [Entitic vol] 92.6 fL Normal 81.0-99.0 [facility] Comment on above: Performed By: #### C BC ####[facility] [address] [place], [place] [address]Dr. Sherry Sanches MONO # 0.8 103/ul Normal 0.3-0.8 [facility] Comment on above: Performed By: #### C BC ####[facility] [address] [place] [address]Dr. Sherry Sanches Monocytes/100 WBC (Bld) 14.3 % Critically high 1.7-12.0 [facility] Comment on above: Performed By: #### C BC ####[facility] [address]xf[address] [place] [address]Dr. Sherry Sanches NEUT # 3.9 103/ul Normal 1.4-6.5 [facility] Comment on above: Performed By: #### C BC ####[facility] [address] [place] [id number]. Sherry Sanches Neutrophils/100 WBC (Bld) 67.9 % Normal 43.0-75.0 [facility] Comment on above: Performed By: #### C BC ####[facility] [address]cx[address] [place] [address]Dr. Sherry Sanches Platelet mean volume (Bld) [Entitic vol] 9.2 fL Critically low 9.5-13.5 [facility] Comment on above: Performed By: #### C BC ####[facility] [address] [place] [address]Dr. Sherry Sanches PLT 242 103/ul Normal 150-450 [facility] Comment on above: Performed By: #### C BC ####[facility] [address]jinqwp5[address] [place] [id number]. Sherry Sanches RBC 3.25 106/ul Critically low 4.20-5.40 [facility] Comment on above: Performed By: #### C BC ####[facility] Z[address]hpry[address] [place] [id number]. Sherry Sanches WBC 5.8 103/ul Normal 4.0-11.0 [facility] Comment on above: Performed By: #### C BC ####[facility] [address] [place] [id number]. Sherry Sanches PROF CHEM 8 (BAS METB)on Anion gap [Moles/Vol] 11.6 mmol/L Normal [facility] Comment on above: Performed By: #### H STROPN #### [facility] Laboratory [id number] Sherry Sanches Calcium [Mass/Vol] 8.1 mg/dL Critically low 8.5-10.1 Th e [facility] Comment on above: Performed By: #### H STROPN #### [facility] Laboratory [address] [address] [address] Sherry Sanches Chloride [Moles/Vol] 102 mmol/L Normal 98-107 [facility] Comment on above: Performed By: #### H STROPN #### [facility] Laboratory [address] [address] [address] Sherry Sanches Performed By: #### B MP, BNP ####[facility] [address]opg[address] [place] [address]Dr. Sherry Sanches CO2 [Moles/Vol] 28.8 mmol/L Normal 21.0-32.0 [facility] Comment on above: Performed By: #### H STROPN #### [facility] Laboratory [address] [address] [address] Sherry Sanches Creatinine [Mass/Vol] 2.04 mg/dL Critically high 0.55-1.02 [facility] Comment on above: Performed By: #### H STROPN #### [facility] Laboratory [address] [address] [address] Sherry Sanches EGFR-AF PALESTINIAN 29 mL/min/1.73m2 Critically low >=60 [facility] Comment on above: Performed By: #### H STROPN #### [facility] Laboratory [address] [address] [address] Sherry Sanches EGFR-NON AF PALESTINIAN 24 mL/min/1.73m2 Critically low >=60 [facility] Comment on above: Performed By: #### H STROPN #### [facility] Laboratory [address] [address] [address] Sherry Sanches Glucose [Mass/Vol] 99 mg/dL Normal 74-106 [facility] Comment on above: Performed By: #### H STROPN #### [facility] Laboratory [address] [address] [address] Sherry Sanches Potassium [Moles/Vol] 3.4 mmol/L Critically low 3.5-5.1 [facility] Comment on above: Performed By: #### H STROPN #### [facility] Laboratory [address] [address] [address] Sherry Sanches Sodium [Moles/Vol] 139 mmol/L Normal 136-145 [facility] Comment on above: Performed By: #### H STROPN #### [facility] [address] [address] [address] Sherry Sanches Performed By: #### B MP, BNP ####[facility] [address] [place] [address]DrBita Sanches Urea nitrogen [Mass/Vol] 32.0 mg/dL Critically high 7.0-18.0 [facility] Comment on above: Performed By: #### H STROPN #### [facility] [address] [address] [address] Sherry Sanches Urea nitrogen/Creatinine [Mass ratio] 15.7 mg/mg Normal [facility] Comment on above: Performed By: #### H STROPN #### [facility] Laboratory [address] [address] [address] Sherry Sanches Anion gap [Moles/Vol] 10.7 mmol/L Normal [facility] Comment on above: Performed By: #### B MP, BNP ####[facility] [address]lh[address] [place] [address]Dr. Sherry Sanches Calcium [Mass/Vol] 8.3 mg/dL Critically low 8.5-10.1 [facility] Comment on above: Performed By: #### B MP, BNP ####[facility] [address]ze[address] [place] [address]Dr. Sherry Sanches CO2 [Moles/Vol] 29.5 mmol/L Normal 21.0-32.0 [facility] Comment on above: Performed By: #### B MP, BNP ####[facility] [address] [place] [address]Dr. Sherry Sanches Creatinine [Mass/Vol] 2.20 mg/dL Critically high 0.55-1.02 [facility] Comment on above: Performed By: #### B MP, BNP ####[facility] Com[address]olrh[address] [place] [address]Dr. Sherry Sanches EGFR-AF PALESTINIAN 27 mL/min/1.73m2 Critically low >=60 [facility] Comment on above: Performed By: #### B MP, BNP ####[facility] [address]shsm[address] [place] [address]Dr. Sherry Sanches EGFR-NON AF PALESTINIAN 22 mL/min/1.73m2 Critically low >=60 [facility] Comment on above: Performed By: #### B MP, BNP ####[facility] [address] [place] [address]Dr. Sherry Sanches Glucose [Mass/Vol] 98 mg/dL Normal 74-106 [facility] Comment on above: Performed By: #### B MP, BNP ####[facility] Pb[address]arynxtx[address] [place] [address]Dr. Sherry Sanches Potassium [Moles/Vol] 3.2 mmol/L Critically low 3.5-5.1 [facility] Comment on above: Performed By: #### B MP, BNP ####[facility] [address] [place], [place] [address]Dr. Sherry Sanches Urea nitrogen [Mass/Vol] 33.0 mg/dL Critically high 7.0-18.0 [facility] Comment on above: Performed By: #### B MP, BNP ####[facility] [address] [place], [place] [address]Dr. Sherry Sanches Urea nitrogen/Creatinine [Mass ratio] 15.0 mg/mg Normal [facility] Comment on above: Performed By: #### B MP, BNP ####[facility] [address] [place] [address]DrBita Sanches BNPon 02-14-2022 Natriuretic peptide B (Bld) [Mass/Vol] 1291.0 pg/mL Critically high <=900.0 [facility] Comment on above: Performed By: #### C VDAGS #### [facility] Laboratory [address] [address] [address] Sherry Sanches CBC AUTO DIFFon 02-14-2022 BASO # 0.0 103/ul Normal 0.0-0.1 [facility] Comment on above: Performed By: #### T SH #### [facility] Laboratory [address] [place] [address] Dr. Sherry Sanches Basophils/100 WBC (Bld) 0.5 % Normal 0.2-2.0 [facility] Comment on above: Performed By: #### T SH #### [facility] Laboratory [address] [place] [address] Dr. Sherry Sanches EO # 0.3 103/ul Normal 0.0-0.7 [facility] Comment on above: Performed By: #### T SH #### [facility] Laboratory [address] [place] [address] Dr. Sherry Sanches Eosinophils/100 WBC (Bld) 4.5 % Normal 0.9-7.0 [facility] Comment on above: Performed By: #### T SH #### [facility] Laboratory [address] [place] [address] Dr. Sherry Sanches Erythrocyte distribution width (RBC) [Ratio] 13.2 % Normal 11.0-15.0 [facility] Comment on above: Performed By: #### T SH #### [facility] Laboratory [address] [place] [address] Dr. Sherry Sanches Hematocrit (Bld) [Volume fraction] 31.1 % Critically low 36.0-48.0 [facility] Comment on above: Performed By: #### T SH #### [facility] Laboratory [address] [place] [address] Dr. Sherry Sanches Hemoglobin (Bld) [Mass/Vol] 10.1 g/dL Critically low 12.0-16.0 [facility] Comment on above: Performed By: #### T SH #### [facility] Laboratory [address] [place] [address] Dr. Sherry Sanches IG # 0.03 10e3/ul Normal 0.00-0.03 [facility] Comment on above: Performed By: #### T SH #### [facility] Laboratory [address] [place] [address] Dr. Sherry Sanches IG % 0.5 % Normal 0.0-0.5 [facility] Comment on above: Performed By: #### T SH #### [facility] Laboratory [address] [place] [address] Dr. Sherry Sanches LYMPH # 0.8 103/ul Critically low 1.2-3.8 [facility] Comment on above: Performed By: #### T SH #### [facility] Laboratory [address] [place] [address] Dr. Sherry Sanches Lymphocytes/100 WBC (Bld) 13.1 % Critically low 20.5-60.0 [facility] Comment on above: Performed By: #### T SH #### [facility] [address] [place] [address] Dr. Sherry Sanches MANUAL DIFF REQ NO Normal [facility] Comment on above: Performed By: #### T SH #### [facility] [address] [place] [address] Dr. Sherry Sanches MCH (RBC) [Entitic mass] 30.1 pg Normal 26.7-34.0 [facility] Comment on above: Performed By: #### T SH #### [facility] [address] [place] [address] Dr. Sherry Sanches MCHC (RBC) [Mass/Vol] 32.5 g/dL Normal 29.9-35.2 [facility] Comment on above: Performed By: #### T SH #### [facility] [address] [place] [address] Dr. Sherry Sanches MCV (RBC) [Entitic vol] 92.8 fL Normal 81.0-99.0 [facility] Comment on above: Performed By: #### T SH #### [facility] [address] [place] [address] Dr. Sherry Sanches MONO # 0.9 103/ul Critically high 0.3-0.8 [facility] Comment on above: Performed By: #### T SH #### [facility] [address] [place] [address] Dr. Sherry Sanches Monocytes/100 WBC (Bld) 14.4 % Critically high 1.7-12.0 [facility] Comment on above: Performed By: #### T SH #### [facility] [address] [place] [address] Dr. Sherry Sanches NEUT # 4.2 103/ul Normal 1.4-6.5 [facility] Comment on above: Performed By: #### T SH #### [facility] [address] [place] [address] Dr. Sherry Sanches Neutrophils/100 WBC (Bld) 67.0 % Normal 43.0-75.0 [facility] Comment on above: Performed By: #### T SH #### [facility] [address] [place] [address] Dr. Sherry Sanches Platelet mean volume (Bld) [Entitic vol] 9.2 fL Critically low 9.5-13.5 [facility] Comment on above: Performed By: #### T SH #### [facility] [address] [place] [address] Dr. Sherry Sanches PLT 239 103/ul Normal 150-450 [facility] Comment on above: Performed By: #### T SH #### [facility] [address] [place] [address] Dr. Sherry Sanches RBC 3.35 106/ul Critically low 4.20-5.40 [facility] Comment on above: Performed By: #### T SH #### [facility] [address] [place] [address] Dr. Sherry Sanches WBC 6.3 103/ul Normal 4.0-11.0 [facility] Comment on above: Performed By: #### T SH #### [facility] Laboratory [address] [place] [address] Dr. Sherry Sanches ECHOCARDIO M/2D COMPLETEon 1 ECHOCARDIO M/2D COMPLETE Patient: DIANN LINDER Exam Date: 02/14/2022 : 1950 Gender:F Ordering : DR KAYLA ARELLANO . Admission #: [id number] Family : DR FER MCKENNA . Order #: [id number] CLICK HERE TO VIEW EXAM ECHOCARDIOGRAM REPORT PROCEDURE: CARDIO PULMONARY ECHOCARDIO M/2D COMP INDICATIONS: Chest pain COMPARISON: None. DESCRIPTION: COMPLETE ECHOCARDIOGRAM Real-time transthoracic echocardiography with 2D, M-mode, spectral and color flow Doppler performed. QUALITY: Technical quality was good. LEFT VENTRICLE: Normal chamber size. Mild concentric left ventricular hypertrophy. Global left ventricular systolic function is normal. LV EF: Visual estimation of left ventricular ejection fraction is 60% DIASTOLIC: Diastolic function is indeterminate. ATRIAL SEPTUM: LEFT ATRIUM: Moderate dilatation. RIGHT ATRIUM: Moderate dilatation. RIGHT VENTRICLE: Normal chamber size. Normal right ventricular systolic function. TRICUSPID VALVE: Normal mobility and thickness. No stenosis with mild regurgitation. Mild pulmonary hypertension. RVSP 42 mmHg. MITRAL VALVE: Normal mobility and thickness. No mitral valve prolapse. No evidence of mitral valve stenosis. There is no mitral annular calcification. Mild mitral regurgitation. AORTIC VALVE: Grossly normal. Normal leaflet mobility. No evidence of aortic valve stenosis. DVI 0.7. No aortic regurgitation. AORTIC ROOT: Normal diameter and appearance. PULMONIC VALVE: Normal thickness and mobility. No stenosis. No regurgitation. PERICARDIUM: No evidence of pericardial effusion. IVC: Normal size with no collapse. PLEURA: CONCLUSION: 1. Mild concentric hypertrophy. 2. Normal ventricular systolic function. No wall motion abnormalities. LVEF is 60%. 3. Moderate biatrial dilatation. 4. Mild mitral and tricuspid regurgitation. 5. Mildly elevated right sided pressures. 6. No pericardial effusion. Adult Echocardiography Procedure Report Left Ventricle LVEDD (3.7 - 5.6 cm): 5.52 cm LVESD (2.2 - 4.0 cm): 3.63 cm LVIVS thickness (0.6 - 1.2 cm): 1.05 cm LVPW thickness (0.5 - 1.0 cm): 1.08 cm e': 0.10 m/s E - e': 9.37 LVOT Max Gradient: 5.25 mm[Hg] Peak Velocity (LVOT): 1.15 m/s Mean Velocity (LVOT): 0.79 m/s LVOT Diameter 1.86 cm Left Ventricular Ejection Fraction: 60% Left Atrium LA Volume Index (2D A2C): 80.39 ml, 80.39 ml Left Atrium Systolic Dimension: 4.33 cm Mitral Valve MV E to A Ratio: 1.24 Mitral Valve A-Wave Peak Velocity: 0.79 m/s Mitral Valve E-Wave Peak Velocity: 0.98 m/s Right Ventricle RV Internal Diastolic Dimension: 3.58 cm Aorta AO Root Diam: 2.89 cm Aortic Valve AoV Area (Peak Esau): 1.82 cm2, 1.82 cm2 AoV Area (VTI): 1.84 cm2, 1.84 cm2 Peak Velocity(Antegrade Flow): 1.71 m/s Peak Gradient(Antegrade Flow): 11.75 mm[Hg] Mean Velocity(Antegrade Flow): 1.09 m/s Mean Gradient(Antegrade Flow): 5.54 mm[Hg] Velocity Time Integral: 39.88 cm Tricuspid Valve Peak Velocity (Regurgitant Flow): 2.87 m/s, 2.89 m/s, 2.53 m/s Peak Velocity: 0.79 m/s Pulmonic Valve Peak Velocity: 1.04 m/s, 0.97 m/s Peak Gradient: 4.29 mm[Hg], 3.74 mm[Hg] Right Atrium Right Atrium Systolic Pressure: 82.65 ml, 82.65 ml Dictated by: Venkat Tobias M.D. on 02/18/2022 at 08:12 Approved by: Venkat Tobias M.D. on 02/18/2022 at 08:20 Normal [facility] PROF CHEM 8 (BAS METB)on Anion gap [Moles/Vol] 10.2 mmol/L Normal [facility] Comment on above: Performed By: #### H STROPN #### [facility] Laboratory [address] [place] [address] Dr. Sherry Sanches Calcium [Mass/Vol] 8.4 mg/dL Critically low 8.5-10.1 [facility] Comment on above: Performed By: #### H STROPN #### [facility] Laboratory [address] [place] [address] Dr. Sherry Sanches Chloride [Moles/Vol] 101 mmol/L Normal 98-107 [facility] Comment on above: Performed By: #### H STROPN #### [facility] Laboratory [address] [place] [address] Dr. Sherry Sanches CO2 [Moles/Vol] 28.4 mmol/L Normal 21.0-32.0 [facility] Comment on above: Performed By: #### H STROPN #### [facility] Laboratory [address] [address] [address] Sherry Sanches Creatinine [Mass/Vol] 2.13 mg/dL Critically high 0.55-1.02 [facility] Comment on above: Performed By: #### H STROPN #### [facility] Laboratory [address] [address] [address] Sherry Sanches EGFR-AF PALESTINIAN 28 mL/min/1.73m2 Critically low >=60 [facility] Comment on above: Performed By: #### H STROPN #### [facility] Laboratory [address] [address] [address] Sherry Sanches EGFR-NON AF PALESTINIAN 23 mL/min/1.73m2 Critically low >=60 [facility] Comment on above: Performed By: #### H STROPN #### [facility] [address] [address] [address] Sherry Sanches Glucose [Mass/Vol] 100 mg/dL Normal 74-106 [facility] Comment on above: Performed By: #### H STROPN #### [facility] Laboratory [address] [address] [address] Sherry Sanches Potassium [Moles/Vol] 3.6 mmol/L Normal 3.5-5.1 [facility] Comment on above: Performed By: #### H STROPN #### [facility] Laboratory [address] [address] [address] Sherry Sanches Sodium [Moles/Vol] 136 mmol/L Normal 136-145 [facility] Comment on above: Performed By: #### H STROPN #### [facility] Laboratory [address] [address] [address] Sherry Sanches Urea nitrogen [Mass/Vol] 31.0 mg/dL Critically high 7.0-18.0 [facility] Comment on above: Performed By: #### H STROPN #### [facility] Laboratory [address] [address] [address] Sherry Sanches Urea nitrogen/Creatinine [Mass ratio] 14.6 mg/mg Normal [facility] Comment on above: Performed By: #### H STROPN #### [facility] Laboratory [address] [address] [address] Sherry Sanches BNPon 02-13-2022 Natriuretic peptide B (Bld) [Mass/Vol] 1047.0 pg/mL Critically high <=900.0 [facility] Comment on above: Performed By: #### C BC #### [facility] Laboratory [address] [address] [address] Sherry Sanches CBC AUTO DIFFon 02-13-2022 BASO # 0.0 103/ul Normal 0.0-0.1 [facility] Comment on above: Performed By: #### C BC ####[facility] [address] [place] [address]DrBita Sanches Basophils/100 WBC (Bld) 0.4 % Normal 0.2-2.0 [facility] Comment on above: Performed By: #### C BC ####[facility] [address] [place] [address]DrBita Sanches EO # 0.2 103/ul Normal 0.0-0.7 [facility] Comment on above: Performed By: #### C BC ####[facility] [address] [place] [address]Dr. Sherry Sanches Eosinophils/100 WBC (Bld) 2.9 % Normal 0.9-7.0 [facility] Comment on above: Performed By: #### C BC ####[facility] [address] [place] [address]DrBita Sanches Erythrocyte distribution width (RBC) [Ratio] 13.2 % Normal 11.0-15.0 [facility] Comment on above: Performed By: #### C BC ####[facility] [address] [place] [address]DrBita Sanches Hematocrit (Bld) [Volume fraction] 32.6 % Critically low 36.0-48.0 [facility] Comment on above: Performed By: #### C BC ####[facility] [address] [place] [id number]. Sherry Sanches Hemoglobin (Bld) [Mass/Vol] 10.8 g/dL Critically low 12.0-16.0 [facility] Comment on above: Performed By: #### C BC ####[facility] [address] [place] [id number]. Sherry Sanches IG # 0.03 10e3/ul Normal 0.00-0.03 [facility] Comment on above: Performed By: #### C BC ####[facility] [address] [place] [address]Dr. Sherry Sanches IG % 0.4 % Normal 0.0-0.5 [facility] Comment on above: Performed By: #### C BC ####[facility] [address] [place] [address]Dr. Sherry Sanches LYMPH # 0.8 103/ul Critically low 1.2-3.8 [facility] Comment on above: Performed By: #### C BC ####[facility] [address] [place] [address]Dr. Sherry Sanches Lymphocytes/100 WBC (Bld) 10.4 % Critically low 20.5-60.0 [facility] Comment on above: Performed By: #### C BC ####[facility] [address] [place] [address]Dr. Sherry Sanches MANUAL DIFF REQ NO Normal [facility] Comment on above: Performed By: #### C BC ####[facility] [address] [place] [address]Dr. Sherry Sanches MCH (RBC) [Entitic mass] 30.7 pg Normal 26.7-34.0 [facility] Comment on above: Performed By: #### C BC ####[facility] [address] [place] [address]Dr. Sherry Sanches MCHC (RBC) [Mass/Vol] 33.1 g/dL Normal 29.9-35.2 [facility] Comment on above: Performed By: #### C BC ####[facility] [address] [place] [id number]. Sherry Sanches MCV (RBC) [Entitic vol] 92.6 fL Normal 81.0-99.0 [facility] Comment on above: Performed By: #### C BC ####[facility] [address] [place] [id number]. Sherry Sanches MONO # 1.0 103/ul Critically high 0.3-0.8 [facility] Comment on above: Performed By: #### C BC ####[facility] [address] [place] [id number]. Sherry Sanches Monocytes/100 WBC (Bld) 14.2 % Critically high 1.7-12.0 [facility] Comment on above: Performed By: #### C BC ####[facility] [address] [place], [place] [address]Dr. Sherry Sanches NEUT # 5.3 103/ul Normal 1.4-6.5 [facility] Comment on above: Performed By: #### C BC ####[facility] [address] [place], [place] [address]Dr. Sherry Sanches Neutrophils/100 WBC (Bld) 71.7 % Normal 43.0-75.0 [facility] Comment on above: Performed By: #### C BC ####[facility] [address] [place], [place] [address]Dr. Sherry Sanches Platelet mean volume (Bld) [Entitic vol] 9.3 fL Critically low 9.5-13.5 [facility] Comment on above: Performed By: #### C BC ####[facility] [address] [place] [id number]. Sherry Sanches PLT 245 103/ul Normal 150-450 [facility] Comment on above: Performed By: #### C BC ####[facility] [address] [place], [place] [id number]. Sherry Sanches RBC 3.52 106/ul Critically low 4.20-5.40 [facility] Comment on above: Performed By: #### C BC ####[facility] [address] [place], [place] [address]QyDr. Sherry Sanches WBC 7.3 103/ul Normal 4.0-11.0 [facility] Comment on above: Performed By: #### C BC ####[facility] [address] [place], [place] [address]Dr. Sherry Sanches [facility]on SARS-CoV-2 (COVID-19) RNA GABE+probe Ql (Unsp spec) Not detected Normal NOT DETECTED [facility] Comment on above: Result Comment: When diagnostic testing is negative, the possibility of a false negative should be considered in the context of a patient's recent exposures and the presence of clinical signs and symptoms consistent with SARS-CoV-2. This test is not yet approved or cleared by the [place] FDA. When there are no FDA-approved or cleared tests available, and other criteria are met, FDA can make tests available under an emergency access mechanism called an Emergency Use Authorization (EUA). The EUA for this test is supported by the Identity Management Developer of Health and Human Service's declaration that circumstances exist to justify the emergency use of in vitro diagnostics for the detection and/or diagnosis of the virus that causes COVID-19. This EUA will remain in effect for the duration of the COVID-19 declaration justifying emergency of IVDs, unless it is terminated or revoked by the FDA (after which the test may no longer be used). Performed By: #### H STROPN #### [facility] Laboratory [address] [place] [address] Dr. Sherry Sanches LIPASEon 02-13-2022 Lipase [Catalytic activity/Vol] 84.0 U/L Normal 73.0-393.0 [facility] Comment on above: Performed By: #### C BC #### [facility] Laboratory [address] [address] [address] Sherry Sanches PROF 14(COMP METB)on 022 Albumin [Mass/Vol] 3.7 g/dL Normal 3.4-5.0 [facility] Comment on above: Performed By: #### C BC #### [facility] Laboratory [address] [place] [address] Dr. Sherry Sanches Albumin/Globulin [Mass ratio] 0.9 {ratio} Normal [facility] Comment on above: Performed By: #### C BC #### [facility] Laboratory [address] [place] [address] Dr. Sherry Sanches ALP [Catalytic activity/Vol] 103 U/L Normal 46-116 [facility] Comment on above: Performed By: #### C BC #### [facility] Laboratory [address] [place] [address] Dr. Sherry Sanches ALT [Catalytic activity/Vol] 15 U/L Normal 14-59 [facility] Comment on above: Performed By: #### C BC #### [facility] Laboratory [address] [place] [address] Dr. Sherry Sanches Anion gap [Moles/Vol] 12.0 mmol/L Normal [facility] Comment on above: Performed By: #### C BC #### [facility] Laboratory [address] [place] [address] Dr. Sherry Sanches AST [Catalytic activity/Vol] 18 U/L Normal 15-37 [facility] Comment on above: Performed By: #### C BC #### [facility] Laboratory [address] [place] [address] Dr. Sherry Sanches Bilirubin [Mass/Vol] 0.9 mg/dL Normal 0.2-1.0 [facility] Comment on above: Performed By: #### C BC #### [facility] Laboratory [address] [place] [address] Dr. Sherry Sanches Calcium [Mass/Vol] 8.9 mg/dL Normal 8.5-10.1 [facility] Comment on above: Performed By: #### C BC #### [facility] Laboratory [address] [place] [address] Dr. Sherry Sanches Chloride [Moles/Vol] 98 mmol/L Normal 98-107 [facility] Comment on above: Performed By: #### C BC #### [facility] Laboratory [address] [place] [address] Dr. Sherry Sanches CO2 [Moles/Vol] 27.6 mmol/L Normal 21.0-32.0 [facility] Comment on above: Performed By: #### C BC #### [facility] Laboratory [address] [address] [address] Sherry Sanches Creatinine [Mass/Vol] 2.22 mg/dL Critically high 0.55-1.02 [facility] Comment on above: Performed By: #### C BC #### [facility] Laboratory [address] [address] [address] Sherry Sanches EGFR-AF PALESTINIAN 26 mL/min/1.73m2 Critically low >=60 [facility] Comment on above: Performed By: #### C BC #### [facility] Laboratory [address] [address] [address] Sherry Sanches EGFR-NON AF PALESTINIAN 22 mL/min/1.73m2 Critically low >=60 [facility] Comment on above: Performed By: #### C BC #### [facility] Laboratory [address] [address] [address] Sherry Sanches Globulin (S) [Mass/Vol] 3.9 g/dL Normal [facility] Comment on above: Performed By: #### C BC #### [facility] Laboratory [address] [address] [address] Sherry Sanches Glucose [Mass/Vol] 116 mg/dL Critically high 74-106 [facility] Comment on above: Performed By: #### C BC #### [facility] Laboratory [address] [address] [address] Sherry Sanches Potassium [Moles/Vol] 3.6 mmol/L Normal 3.5-5.1 [facility] Comment on above: Performed By: #### C BC #### [facility] Laboratory [address] [address] [address] Sherry Sanches Protein [Mass/Vol] 7.6 g/dL Normal 6.4-8.2 [facility] Comment on above: Performed By: #### C BC #### [facility] Laboratory [address] [address] [address] Sherry Sanches Sodium [Moles/Vol] 134 mmol/L Critically low 136-145 [facility] Comment on above: Performed By: #### C BC #### [facility] Laboratory [address] [place] [address] Dr. Sherry Sanches Urea nitrogen [Mass/Vol] 32.0 mg/dL Critically high 7.0-18.0 [facility] Comment on above: Performed By: #### C BC #### [facility] Laboratory [address] [place] [address] Dr. Sherry Sanches Urea nitrogen/Creatinine [Mass ratio] 14.4 mg/mg Normal [facility] Comment on above: Performed By: #### C BC #### [facility] Laboratory [address] [place] [address] Dr. Sherry Sanches PROTIMEon 02-13-2022 INR Coag (PPP) [Relative time] 1.02 {INR} Normal [facility] Comment on above: Performed By: #### C VDAGS #### [facility] Laboratory [address] [place] [address] Dr. Sherry Sanches INR GUIDELINES SEE BELOW Normal [facility] Comment on above: Result Comment: SARAH RED INR: 2.0 - 3.0 CONDITIONS NOT LISTED BELOW 2.5 - 3.5 FOR PROSTHETIC HEART VALVE REPLACEMENT 2.5 - 3.5 RECURRENT THROMBOSIS Performed By: #### C VDAGS #### [facility] Laboratory [address] [place] [address] Dr. Sherry Sanches PT Coag (PPP) [Time] 11.0 s Normal 9.0-11.6 [facility] Comment on above: Performed By: #### C VDAGS #### [facility] Laboratory [address] [place] [address] Dr. Sherry Sanches PTTon 02-13-2022 aPTT Coag (Bld) [Time] 28.0 s Normal 22.3-36.2 [facility] Comment on above: Performed By: #### C VDAGS #### [facility] Laboratory [address] [place] [address] Dr. Sherry Sanches TROPONIN, HIGH SENSITIVITYon 02-13-2022 HSTROP 7.4 pg/mL Normal 4.0-51.3 [facility] Comment on above: Result Comment: CUT- OFF POINTS HAVE BEEN ESTABLISHED BASED ON THE FOURTH UNIVERSAL DEFINITIONS OF MYOCARDIAL INFARCTION. THE UPPER REFERENCE LIMIT (URL) OF TROPONIN, DEFINED THE 99TH PERCENTILE OF cTnI DISTRIBUTION IN A REFERENCE POPULATION, HAS BEEN CONFIRMED THE DECISION THRESHOLD FOR VT DIAGNOSIS. Performed By: #### H STROPN ####[facility] [address] [place], [place] [address]Dr. Sherry Sanches HSTROP 6.3 pg/mL Normal 4.0-51.3 [facility] Comment on above: Result Comment: CUT- OFF POINTS HAVE BEEN ESTABLISHED BASED ON THE FOURTH UNIVERSAL DEFINITIONS OF MYOCARDIAL INFARCTION. THE UPPER REFERENCE LIMIT (URL) OF TROPONIN, DEFINED THE 99TH PERCENTILE OF cTnI DISTRIBUTION IN A REFERENCE POPULATION, HAS BEEN CONFIRMED THE DECISION THRESHOLD FOR VT DIAGNOSIS. Performed By: #### H STROPN #### [facility] Laboratory [address] [place] [address] Dr. Sherry Sanches HSTROP 6.3 pg/mL Normal 4.0-51.3 [facility] Comment on above: Result Comment: CUT- OFF POINTS HAVE BEEN ESTABLISHED BASED ON THE FOURTH UNIVERSAL DEFINITIONS OF MYOCARDIAL INFARCTION. THE UPPER REFERENCE LIMIT (URL) OF TROPONIN, DEFINED THE 99TH PERCENTILE OF cTnI DISTRIBUTION IN A REFERENCE POPULATION, HAS BEEN CONFIRMED THE DECISION THRESHOLD FOR VT DIAGNOSIS. Performed By: #### C BC #### [facility] Laboratory [address] [place], [place] [id number] Dr. Sherry Sanches XR CHEST 1 Von 02-13-2022 XR CHEST 1 V PORTABLE CHEST X-RAY . INDICATION: Chest pain. COMPARISON: 05/16/2021 TECHNIQUE: Single AP portable chest radiograph. FINDINGS: TUBES AND LINES: None. LUNGS: Lungs are clear. PLEURA: No effusions or pneumothorax. HEART AND MEDIASTINUM: Within normal limits for portable technique. OSSEOUS STRUCTURES: No acute abnormality. IMPRESSION: No acute findings. Electronically authenticated by: ANA MILLS Date: 2022-02-13 18:33 Normal [facility] CREATININEon 01-10-2022 Creatinine [Mass/Vol] 1.05 mg/dL Critically high 0.55-1.02 [facility] Comment on above: Performed By: #### T SH #### [facility] Laboratory [address] [place], [place] [address] Dr. Sherry Sanches EGFR-AF PALESTINIAN >60 Normal >=60 [facility] Comment on above: Performed By: #### T #### [facility] Laboratory [address] [id number] [address] Sherry Sanches EGFR-NON AF PALESTINIAN 52 mL/min/1.73m2 Critically low >=60 [facility] Comment on above: Performed By: #### T #### [facility] Laboratory [id number] Sherry Sanches [address] ABD/PELV WO W CONon 01-10 CT ABD/PELV WO W CON EXAMINATION: CT ABD/PELV WO W CON, 01/10/2022 11:36 AM EDT HISTORY: Kidney stone COMPARISON: 05/23/2019 TECHNIQUE: CT scan of the abdomen and pelvis was performed without and with IV contrast. CT dose reduction technique was used, including Automated Exposure Control. FINDINGS: LUNG BASES: No visible pulmonary or pleural disease. LIVER: No enlargement, atrophy, abnormal density, or significant focal lesion. BILIARY: No dilatation or calcification. PANCREAS: No lesion, fluid collection, ductal dilatation, or atrophy. SPLEEN: No enlargement or focal lesion. ADRENALS: No mass or enlargement. KIDNEYS: 8.4 mm calcification right renal pelvis with no obstructive uropathy. Normal right ureter. Left cortical hypodensity, a cyst is suspected. Multiple calcifications in the left pelvis with a 7 mm stone at the ureteropelvic junction BOWEL/MESENTERY: Colonic diverticulosis without evidence of acute diverticulitis. Mild wall thickening of the sigmoid colon with mild inflammatory changes. Nonobstructive bowel gas pattern. AORTA/VASCULAR: No aortic aneurysm. Moderate atherosclerosis. RETROPERITONEUM: No mass or adenopathy. LYMPH NODES: No adenopathy. URINARY BLADDER: No visible focal wall thickening, lesion, or calculus. PELVIC ORGANS: Hysterectomy. ABDOMINAL WALL: No mass or hernia. BONES: Levocurvature with moderate degenerative changes OTHER: Negative. IMPRESSION: Bilateral nephrolithiasis left greater than right 6 mm left ureteropelvic junction stone with mild hydronephrosis Electronically authenticated by: LONNIE MCCORMACK Date: 2022-01-10 14:05 Normal [facility] XR KUB 1 VIEWon 01-07-2022 XR KUB 1 VIEW EXAMINATION: XR KUB 1 VIEW HISTORY: Kidney stone ; follow-up lithotripsy, left renal stone COMPARISON: No relevant comparison available. FINDINGS: KIDNEY/URETER - RIGHT: 10 mm stone projecting over inferior pole of right kidney. KIDNEY/URETER - LEFT: Numerous stones projecting over left kidney, largest is 19 mm. A 6 x 4 mm stone projects over areas of the left ureteropelvic junction. PELVIS: Several small pelvic calcifications bilaterally; several are stable compared to 08/14/2019, others are new. BOWEL: No abnormal dilation or deviation. BONES: No acute abnormality. OTHER: Negative. No abnormal gaseous collections. IMPRESSION: 1. Bilateral nephrolithiasis. Possible stones within the proximal left ureter or at the ureteropelvic junction. 2. Nonspecific pelvic calcifications. A distal left ureteral stone cannot be excluded. Electronically authenticated by: HOWARD POST Date: 2022-01-07 15:17 Normal [facility] CBC AUTO DIFFon 12-17-2021 BASO # 0.0 103/ul Normal 0.0-0.1 [facility] Comment on above: Performed By: #### T SH #### [facility] Laboratory [address] [place] [address] Dr. Sherry Sanches Basophils/100 WBC (Bld) 0.7 % Normal 0.2-2.0 [facility] Comment on above: Performed By: #### T SH #### [facility] Laboratory [address] [place] [address] Dr. Sherry Sanches EO # 0.2 103/ul Normal 0.0-0.7 [facility] Comment on above: Performed By: #### T SH #### [facility] Laboratory [address] [address] [address] Sherry Sanches Eosinophils/100 WBC (Bld) 5.5 % Normal 0.9-7.0 [facility] Comment on above: Performed By: #### T SH #### [facility] Laboratory [address] [place] [address] Dr. Sherry Sanches Erythrocyte distribution width (RBC) [Ratio] 16.5 % Critically high 11.0-15.0 [facility] Comment on above: Performed By: #### T SH #### [facility] Laboratory [address] [place] [address] Dr. Sherry Sanches Hematocrit (Bld) [Volume fraction] 37.7 % Normal 36.0-48.0 [facility] Comment on above: Performed By: #### T SH #### [facility] Laboratory [address] [place] [address] Dr. Sherry Sanches Hemoglobin (Bld) [Mass/Vol] 12.0 g/dL Normal 12.0-16.0 [facility] Comment on above: Performed By: #### T SH #### [facility] Laboratory [address] [place] [address] Dr. Sherry Sanches IG # 0.01 10e3/ul Normal 0.00-0.03 [facility] Comment on above: Performed By: #### T SH #### [facility] Laboratory [address] [place] [address] Dr. Sherry Sanches IG % 0.2 % Normal 0.0-0.5 [facility] Comment on above: Performed By: #### T SH #### [facility] Laboratory [address] [place] [address] Dr. Sherry Sanches LYMPH # 0.9 103/ul Critically low 1.2-3.8 [facility] Comment on above: Performed By: #### T SH #### [facility] Laboratory [address] [place] [address] Dr. Sherry Sanches Lymphocytes/100 WBC (Bld) 21.3 % Normal 20.5-60.0 [facility] Comment on above: Performed By: #### T SH #### [facility] Laboratory [address] [place] [address] Dr. Sherry Sanches MANUAL DIFF REQ NO Normal [facility] Comment on above: Performed By: #### T SH #### [facility] Laboratory [address] [place] [address] Dr. Sherry Sanches MCH (RBC) [Entitic mass] 29.0 pg Normal 26.7-34.0 [facility] Comment on above: Performed By: #### T SH #### [facility] Laboratory [address] [place] [address] Dr. Sherry Sanches MCHC (RBC) [Mass/Vol] 31.8 g/dL Normal 29.9-35.2 [facility] Comment on above: Performed By: #### T SH #### [facility] Laboratory [address] [place] [address] Dr. Sherry Sanches MCV (RBC) [Entitic vol] 91.1 fL Normal 81.0-99.0 [facility] Comment on above: Performed By: #### T SH #### [facility] Laboratory [address] [place] [address] Dr. Sherry Sanches MONO # 0.6 103/ul Normal 0.3-0.8 [facility] Comment on above: Performed By: #### T SH #### [facility] Laboratory [address] [place] [address] Dr. Sherry Sanches Monocytes/100 WBC (Bld) 15.4 % Critically high 1.7-12.0 [facility] Comment on above: Performed By: #### T SH #### [facility] Laboratory [address] [place] [address] Dr. Sherry Sanches NEUT # 2.3 103/ul Normal 1.4-6.5 [facility] Comment on above: Performed By: #### T SH #### [facility] Laboratory [address] [place] [address] Dr. Sherry Sanhces Neutrophils/100 WBC (Bld) 56.9 % Normal 43.0-75.0 [facility] Comment on above: Performed By: #### T SH #### [facility] Laboratory [address] [place] [address] Dr. Sherry Sanches Platelet mean volume (Bld) [Entitic vol] 9.2 fL Critically low 9.5-13.5 [facility] Comment on above: Performed By: #### T SH #### [facility] Laboratory [address] [place] [address] Dr. Sherry Sanches PLT 208 103/ul Normal 150-450 [facility] Comment on above: Performed By: #### T SH #### [facility] Laboratory [address] [place] [address] Dr. Sherry Sanches RBC 4.14 106/ul Critically low 4.20-5.40 [facility] Comment on above: Performed By: #### T SH #### [facility] Laboratory [address] [address] [address] Sherry Sanches WBC 4.0 103/ul Normal 4.0-11.0 [facility] Comment on above: Performed By: #### T SH #### [facility] Laboratory [address] [place] [address] Dr. Sherry Sanches IRONon 12-17-2021 Iron [Mass/Vol] 61.0 ug/dL Normal 50.0-170.0 [facility] Comment on above: Performed By: #### H STRO #### [facility] Laboratory [address] [place] [address] Dr. Sherry Sanches CHEMISTRYOrdered By: SYSTEM SYSTEM on 10-31-2021 Anion gap [Moles/Vol] 13 mmol/L Normal 6 - 16 mEq/L [facility] Remisol Calcium [Mass/Vol] 8.9 mg/dL Normal 8.9 - 11. 1 mg/dL [facility] Chloride [Moles/Vol] 104 mmol/L Normal 101 - 1 11 mmol/L [facility]isol CO2 [Moles/Vol] 27 mmol/L Normal 21 - 31 mmol/L [facility] Remisol Creatinine [Mass/Vol] 1.1 mg/dL Normal 0.5 - 1.3 mg/dL [facility] Remisol GFR/1.73 sq M.predicted among blacks MDRD (S/P/Bld) [Vol rate/Area] 59 mL/min/1.73 m2 Normal >=59mL/min/1 .73 m2 [facility] Chem S GFR/1.73 sq M.predicted among non-blacks MDRD (S/P/Bld) [Vol rate/Area] 49 mL/min/1.73 m2 Low >=59mL/min/1 .73 m2 [facility] Chem S Glucose [Mass/Vol] 117 mg/dL Normal 55 - 199 mg/dL [facility] Remisol Potassium [Moles/Vol] 4.0 mmol/L Normal 3.5 - 5.3 mmol/L [facility] Remisol Sodium [Moles/Vol] 140 mmol/L Normal 135 - 145 mmol/L [facility] Urea nitrogen [Mass/Vol] 26 mg/dL High 5 - 21 mg/dL [facility] Remisol Urea nitrogen/Creatinine [Mass ratio] 24 mg/mg High 10 - 20 [facility] Remisol COAGULATIONOrdered By: Kristine Cabrera on 10-31-2021 aPTT Coag (PPP) [Time] 30.2 s Normal 25.1 - 36.5 second(s) [facility] Auto Coag INR Coag (PPP) [Relative time] 1.1 {INR} Invalid Interpretation Code [facility] Auto Coag PT Coag (PPP) [Time] 13.0 s High 10.2 - 12.9 second(s) [facility] Auto Coag HEMATOLOGYOrdered By: Margareth duncan on 10-31-2021 Anisocytosis Ql (Bld) Present (10/31/21 5:56 PM) Normal [facility] HemeManSS Erythrocyte distribution width (RBC) [Ratio] 22.8 % High 10.9 - 14.2 % [facility]eAutoSS Hematocrit (Bld) [Volume fraction] 34.2 % Normal 34.0 - 46.0 % [facility] Hemoglobin (Bld) [Mass/Vol] 11.0 g/dL Low 12.0 - 16.0 gm/dL [facility] MCH (RBC) [Entitic mass] 27.3 pg Normal 27.0 - 34.0 pg [facility] MCHC (RBC) [Mass/Vol] 32.3 g/dL Normal 31.4 - 36.0 gm/dL [facility] MCV (RBC) [Entitic vol] 84.7 fL Normal 80.0 - 100.0 fL [facility] Morphology Jesse (Bld) [Interp] See Morphology (10/31/21 5:56 PM) Normal [facility] HemeManSS Platelet mean volume (Bld) [Entitic vol] 7.9 fL Normal 6.4 - 10.8 fL [facility] HemeAutoSS Platelets (Bld) [#/Vol] 348.0 E9/L Normal 150.0 - 500.0 E9/L [facility] HemeAutoSS RBC (Bld) [#/Vol] 4.0 E12/L Low 4.3 - 5.9 E12/L [facility]eAutoSS WBC corrected for nucl RBC Auto (Bld) [#/Vol] 10.7 E9/L Normal 4.0 - 11.0 E9/L [facility]eAuto[facility] HEMATOLOGYOrdered By: SYSTEM SYSTEM on 10-31-2021 Basophils/100 WBC (Bld) 0.3 % Normal 0.0 - 2.0 % [facility]eAutoSS Basophils/Leukocytes Auto (Bld) [Pure # fraction] 0.0 E9/L Normal 0.0 - 0.2 E9/L [facility]eAutoSS Eosinophils/100 WBC (Bld) 0.9 % Normal 0.0 - 8.0 % [facility]eAutoSS Eosinophils/Leukocyte s Auto (Bld) [Pure # fraction] 0.1 E9/L Normal 0.0 - 0.5 E9/L [facility]eAuto[facility] Lymphocytes/100 WBC (Bld) 10.6 % Low 14.0 - 50.0 % [facility]eAutoSS Lymphocytes/Leukocyte s Auto (Bld) [Pure # fraction] 1.1 E9/L Normal 1.0 - 4.0 E9/L [facility]eAuto[facility] Monocytes/100 WBC (Bld) 11.7 % Normal 4.0 - 14.0 % [facility]eAutoSS Monocytes/Leukocytes Auto (Bld) [Pure # fraction] 1.3 E9/L High 0.2 - 1.0 E9/L [facility] Neutrophils/100 WBC (Bld) 76.5 % High 36.0 - 75.0 % [facility]eAutoSS Neutrophils/Leukocyte s Auto (Bld) [Pure # fraction] 8.2 E9/L High 2.0 - 7.5 E9/L [facility] URINALYSISOrdered By: Kristine Cabrera on 10-31-2021 Bacteria LM Ql (Urine sed) 3+ /HPF Invalid Interpretation Code Trace/HPF [facility] UA Auto SS Bilirubin Ql (U) Negative (10/31/21 5:56 PM) Normal Negative [facility]A Auto SS Clarity (U) Clear (10/31/21 5:56 PM) Normal Clear [facility]A Auto SS Color (U) Yellow (10/31/21 5:56 PM) Normal Yellow [facility] UA Auto SS Epithelial cells.squamous LM.HPF (Urine sed) [#/Area] /[HPF] Normal 0-2/HPF [facility] UA Aut o SS Glucose Test strip (U) [Mass/Vol] Negative (10/31/21 5:56 PM) Normal Negative [facility]A Auto SS Hemoglobin Ql (U) 2+ *ABN* (10/31/21 5:56 PM) Invalid Interpretation Code Negative [facility]A Auto SS Ketones (U) [Mass/Vol] Negative (10/31/21 5:56 PM) Normal Negative [facility] UA Auto SS [place].plasma/Lithiu m.RBC (Bld) [Mass ratio] 4-20 /HPF Normal 0-3/HPF [facility]A Auto SS Nitrite Ql (U) Positive *ABN* (10/31/21 5:56 PM) Invalid Interpretation Code Negative [facility]A Auto SS pH (U) 5.5 *NA* (10/31/21 5:56 PM) Invalid Interpretation Code 5.0 - 9.0 [facility]A Auto SS Protein (U) [Mass/Vol] 1+ *ABN* (10/31/21 5:56 PM) Invalid Interpretation Code Negative [facility] UA Auto SS Specific gravity (U) [Rel density] >=1.030 *NA* (10/31/21 5:56 PM) Invalid Interpretation Code 1.005 - 1.030 [facility] UA Auto SS UA Spec Desc Clean Catch (10/31/21 5:56 PM) Normal [facility] UA Auto SS Urobilinogen Qn (U) [id number] {Ellen'U}/dL Normal 0.0 - 1.0 EU/dL [facility]A Auto SS WBC Auto Ql (U) Trace *ABN* (10/31/21 5:56 PM) Invalid Interpretation Code Negative [facility] UA Auto SS WBC LM.HPF (Urine sed) [#/Area] /[HPF] Invalid Interpretation Code 0-5/HPF [facility] UA Auto SS CBC AUTO DIFFon 10-25-2021 BASO # 0.0 103/ul Normal 0.0-0.1 [facility] Comment on above: Performed By: #### T SH #### [facility] [address] [address] [address] Sherry Sanches Basophils/100 WBC (Bld) 0.1 % Critically low 0.2-2.0 [facility] Comment on above: Performed By: #### T SH #### [facility] [address] [place] [address] Dr. Sherry Sanches EO # 0.0 103/ul Normal 0.0-0.7 [facility] Comment on above: Performed By: #### T SH #### [facility] [address] [place] [address] Dr. Sherry Sanches Eosinophils/100 WBC (Bld) 0.1 % Critically low 0.9-7.0 [facility] Comment on above: Performed By: #### T SH #### [facility] [address] [place] [address] Dr. Sherry Sanches Erythrocyte distribution width (RBC) [Ratio] 20.9 % Critically high 11.0-15.0 [facility] Comment on above: Performed By: #### T SH #### [facility] [address] [place] [address] Dr. Sherry Sanches Hematocrit (Bld) [Volume fraction] 32.1 % Critically low 36.0-48.0 [facility] Comment on above: Performed By: #### T SH #### [facility] [address] [place] [address] Dr. Sherry Sanches Hemoglobin (Bld) [Mass/Vol] 9.9 g/dL Critically low 12.0-16.0 [facility] Comment on above: Performed By: #### T SH #### [facility] [address] [place] [address] Dr. Sherry Sanches IG # 0.04 10e3/ul Critically high 0.00-0.03 [facility] Comment on above: Performed By: #### T SH #### [facility] [address] [place] [address] Dr. Sherry Sanches IG % 0.5 % Normal 0.0-0.5 [facility] Comment on above: Performed By: #### T SH #### [facility] [address] [place] [address] Dr. Sherry Sanches LYMPH # 1.1 103/ul Critically low 1.2-3.8 [facility] Comment on above: Performed By: #### T SH #### [facility] [address] [place] [address] Dr. Sherry Sanches Lymphocytes/100 WBC (Bld) 12.3 % Critically low 20.5-60.0 [facility] Comment on above: Performed By: #### T SH #### [facility] [address] [place] [address] Dr. Sherry Sanches MANUAL DIFF REQ NO Normal [facility] Comment on above: Performed By: #### T SH #### [facility] [address] [place] [address] Dr. Sherry Sanches MCH (RBC) [Entitic mass] 27.3 pg Normal 26.7-34.0 [facility] Comment on above: Performed By: #### T SH #### [facility] [address] [place] [address] Dr. Sherry Sanches MCHC (RBC) [Mass/Vol] 30.8 g/dL Normal 29.9-35.2 [facility] Comment on above: Performed By: #### T SH #### [facility] [address] [place] [address] Dr. Sherry Sanches MCV (RBC) [Entitic vol] 88.4 fL Normal 81.0-99.0 [facility] Comment on above: Performed By: #### T SH #### [facility] [address] [place] [address] Dr. Sherry Sanches MONO # 1.0 103/ul Critically high 0.3-0.8 [facility] Comment on above: Performed By: #### T SH #### [facility] [address] [place] [address] Dr. Sherry Sanches Monocytes/100 WBC (Bld) 11.6 % Normal 1.7-12.0 [facility] Comment on above: Performed By: #### T SH #### [facility] [address] [place] [address] Dr. Sherry Sanches NEUT # 6.4 103/ul Normal 1.4-6.5 [facility] Comment on above: Performed By: #### T SH #### [facility] [address] [address] [address] Sherry Sanches Neutrophils/100 WBC (Bld) 75.4 % Critically high 43.0-75.0 [facility] Comment on above: Performed By: #### T SH #### [facility] [address] [place] [address] Dr. Sherry Sanches Platelet mean volume (Bld) [Entitic vol] 9.4 fL Critically low 9.5-13.5 [facility] Comment on above: Performed By: #### T SH #### [facility] [address] [address] [address] Sherry Sanches PLT 327 103/ul Normal 150-450 [facility] Comment on above: Performed By: #### T SH #### [facility] [address] [place] [address] Dr. Sherry Sanches RBC 3.63 106/ul Critically low 4.20-5.40 [facility] Comment on above: Performed By: #### T SH #### [facility] [address] [place] [address] Dr. Sherry Sanches WBC 8.5 103/ul Normal 4.0-11.0 [facility] Comment on above: Performed By: #### T SH #### [facility] [address] [place] [address] Dr. Sherry Sanches IRONon 10-25-2021 Iron [Mass/Vol] 43.0 ug/dL Critically low 50.0-170.0 [facility] Comment on above: Performed By: #### H STROPN #### [facility] [address] [place] [address] Dr. Sherry Sanches TSHon 10-02-2021 TSH 1.700 uIU/mL Normal 0.400-4.500 [facility] Comment on above: Performed By: #### T SH #### [facility] [address], [place] [id number] THYROGLOBULINon 09-29-2021 Thyroglobulin <2.0 Normal [facility] Comment on above: Result Comment: This test was developed and its performance characteristics determined by [facility]. It has not been cleared or approved by the Food and Drug Administration. Reference Range: Pubertal Children and Adults: <40 According to the National Academy of Clinical Biochemistry, the reference interval for Thyroglobulin (TG) should be related to euthyroid patients and not for patients who underwent thyroidectomy. TG reference intervals for these patients depend on the residual mass of the thyroid tissue left after surgery. Establishing a post-operative baseline is recommended. The assay quantitation limit is 2.0 ng/mL. Performed By: #### T JIM ####[facility] [address] [address]Dr. Sherry Sanches CBC AUTO DIFFon 09-24-2021 BASO # 0.0 103/ul Normal 0.0-0.1 [facility] Comment on above: Performed By: #### C BC #### [facility] [address] [place] [address] Dr. Sherry Sanches Basophils/100 WBC (Bld) 0.5 % Normal 0.2-2.0 [facility] Comment on above: Performed By: #### C BC #### [facility] [address] [place] [address] Dr. Sherry Sanches EO # 0.2 103/ul Normal 0.0-0.7 [facility] Comment on above: Performed By: #### C BC #### [facility] [address] [place] [address] Dr. Sherry Sanches Eosinophils/100 WBC (Bld) 4.2 % Normal 0.9-7.0 [facility] Comment on above: Performed By: #### C BC #### [facility] [address] [place] [address] Dr. Sherry Sanches Erythrocyte distribution width (RBC) [Ratio] 21.4 % Critically high 11.0-15.0 [facility] Comment on above: Performed By: #### C BC #### [facility] [address] [address] [address] Sherry Sanches Hematocrit (Bld) [Volume fraction] 29.8 % Critically low 36.0-48.0 [facility] Comment on above: Performed By: #### C BC #### [facility] [address] [place] [address] Dr. Sherry Sanches Hemoglobin (Bld) [Mass/Vol] 9.1 g/dL Critically low 12.0-16.0 [facility] Comment on above: Performed By: #### C BC #### [facility] [address] [place] [address] Dr. Sherry Sanches IG # 0.01 10e3/ul Normal 0.00-0.03 [facility] Comment on above: Performed By: #### C BC #### [facility] [address] [place] [address] Dr. Sherry Sanches IG % 0.3 % Normal 0.0-0.5 [facility] Comment on above: Performed By: #### C BC #### [facility] [address] [place] [address] Dr. Sherry Sanches LYMPH # 0.9 103/ul Critically low 1.2-3.8 [facility] Comment on above: Performed By: #### C BC #### [facility] [address] [place] [address] Dr. Sherry Sanches Lymphocytes/100 WBC (Bld) 24.6 % Normal 20.5-60.0 [facility] Comment on above: Performed By: #### C BC #### [facility] [address] [place] [address] Dr. Sherry Sanches MANUAL DIFF REQ NO Normal [facility] Comment on above: Performed By: #### C BC #### [facility] [address] [place] [address] Dr. Sherry Sanches MCH (RBC) [Entitic mass] 26.0 pg Critically low 26.7-34.0 [facility] Comment on above: Performed By: #### C BC #### [facility] [address] [place] [address] Dr. Sherry Sanches MCHC (RBC) [Mass/Vol] 30.5 g/dL Normal 29.9-35.2 [facility] Comment on above: Performed By: #### C BC #### [facility] [address] [place] [address] Dr. Sherry Sanches MCV (RBC) [Entitic vol] 85.1 fL Normal 81.0-99.0 [facility] Comment on above: Performed By: #### C BC #### [facility] [address] [place] [address] Dr. Sherry Sanches MONO # 0.5 103/ul Normal 0.3-0.8 [facility] Comment on above: Performed By: #### C BC #### [facility] [address] [address] [address] Sherry Sanches Monocytes/100 WBC (Bld) 14.3 % Critically high 1.7-12.0 [facility] Comment on above: Performed By: #### C BC #### [facility] [address] [place] [address] Dr. Sherry Sanches NEUT # 2.1 103/ul Normal 1.4-6.5 [facility] Comment on above: Performed By: #### C BC #### [facility] [address] [place] [address] Dr. Sherry Sanches Neutrophils/100 WBC (Bld) 56.1 % Normal 43.0-75.0 [facility] Comment on above: Performed By: #### C BC #### [facility] [address] [place] [address] Dr. Sherry Sanches Platelet mean volume (Bld) [Entitic vol] 8.6 fL Critically low 9.5-13.5 [facility] Comment on above: Performed By: #### C BC #### [facility] [address] [place] [address] Dr. Sherry Sanches PLT 253 103/ul Normal 150-450 [facility] Comment on above: Performed By: #### C BC #### [facility] [address] [place] [address] Dr. Sherry Sanches RBC 3.50 106/ul Critically low 4.20-5.40 [facility] Comment on above: Performed By: #### C BC #### [facility] [address] [place] [address] Dr. Sherry Sanchse WBC 3.8 103/ul Critically low 4.0-11.0 [facility] Comment on above: Performed By: #### C BC #### [facility] [address] [address] [address] Sherry Sanches IRONon 09-24-2021 Iron [Mass/Vol] 55.0 ug/dL Normal 50.0-170.0 [facility] Comment on above: Performed By: #### H STROPN #### [facility] [id number] Sherry Sanches US KIDNEYSon 09-23-2021 US KIDNEYS EXAMINATION: US KIDNEYS HISTORY: Primary malignant neoplasm of uterus ; hematuria COMPARISON: Ultrasound kidneys 07/18/2020 TECHNIQUE: Ultrasound examination was performed of the kidneys and urinary bladder. FINDINGS: RIGHT KIDNEY: Echogenic 5 x 4 x 3 mm structure, likely stone within kidney. No hydronephrosis or mass. No significant cortical thinning. Kidney: 9.9 x 5.3 x 4.5 cm LEFT KIDNEY: Several echogenic structures within right kidney, largest is 17 x 12 x 4 mm. No hydronephrosis, mass, or significant cortical thinning. Kidney: 9.8 x 4.4 x 4.2 cm. BLADDER: No visible wall thickening, mass, or calculi. Post void residual: 15 mL URETERAL JETS: Visualized bilaterally. IMPRESSION: 1. Bilateral nonobstructing nephrolithiasis. Electronically authenticated by: HOWARD POST Date: 2021-09-23 14:31 Normal [facility] US THYROIDon 09-23-2021 US THYROID EXAMINATION: US THYROID HISTORY: Primary malignant neoplasm of thyroid gland ; history of papillary microcarcinoma thyroid; thyroidectomy COMPARISON: Ultrasound thyroid 11/16/2020 FINDINGS: RIGHT LOBE: No appreciable mass or residual tissue. LEFT LOBE: No appreciable mass or residual tissue. ISTHMUS: No appreciable mass or residual tissue. IMPRESSION: 1. No residual tissue or suspicious findings within thyroid fossa since thyroidectomy. Electronically authenticated by: HOWARD POST Date: 2021-09-23 14:38 Normal [facility] Cardiovascular Lab Reporton 11-02-2020 Cardiovascular Lab Report [facility] Patient Name: Allan Diann [facility] MR #: [id number] Physician: [facility] Medicine Service Date: 11/02/2020 Division of Birthdate: 1950 Cardiology Room #: [facility] Cardiovascular Services [address] [place] [address] Cardiovascular Laboratory Report INDICATION: The patient is a 70-year-old woman who was evaluated in Cardiology Clinic because of symptoms of angina on exertion and a stress test showing anteroapical ischemia. She was treated initially with medical therapy, however, she continued to have symptoms and was brought today for cardiac catheterization. PROCEDURE: Bilateral selective coronary angiography from the left radial access. METHODS: Procedure was explained to the patient with risks and benefits. She signed informed consent. She was brought to blood bank laboratory professional in a fasting state. The left wrist area was prepped and draped in usual fashion. Modified Jose's test was favorable on the left. Access in the left radial artery was obtained using micropuncture technique. A 6-Venezuelan x 11 cm Hydrophilic sheath was advanced. Verapamil was given through the sheath and heparin was administered intravenously. Bilateral selective coronary angiography was then performed using 6-Venezuelan JL4 and JR4 diagnostic catheters. Catheters were removed. Procedure was concluded. A TR band was used for hemostasis in the left radial artery. She tolerated the procedure well. She will be observed for 4-6 hours and then discharged to home. TOTAL SEDATION TIME: 19 minutes. TOTAL FLUORO TIME: 2.32 minutes. TOTAL AIR KERMA: 286 mGy. TOTAL CONTRAST VOLUME: 20 mL. HEMODYNAMICS: AO 116/62, mean 85. CORONARY ANGIOGRAPHY: This is a right dominant circulation. Left main. This arises from left coronary cusp. It trifurcates into left anterior descending, ramus, and circumflex vessels. The left main has no disease. Left anterior descending: This is a moderate caliber vessel. It has mild calcifications in the proximal segment. The entire mid segment has diffuse stenosis reaching up to 80% in 3 locations. Beyond that the distal LAD has minimal disease. Two small sized diagonal branches are seen to arise from the mid segment of the LAD. They have minimal disease. Ramus vessel: This is a large vessel. It has mild disease in the proximal segment. Circumflex vessel: This is a large size vessel that gives rise to an accessory PDA branch. It has minimal luminal irregularities. Right coronary artery. This arises from the right coronary cusp. It is a large and dominant vessel. It has mild diffuse disease in the proximal to mid segment. Distally it bifurcates into PDA and PLV branches. The PLV branch has 80% focal stenosis in the mid segment. The PDA branch has moderate disease in the mid segment. SUMMARY OF THE FINDINGS: 1. Severe 2-vessel coronary artery disease. 2. 80% diffuse stenosis involving the entire mid segment of the LAD. 3. 80% focal stenosis in the mid PLV branch. RECOMMENDATIONS: 1. At this time, the patient will continue to be managed medically with further intensification of antianginal therapy. Ranexa 500 mg twice daily will be added. 2. Stop lisinopril 5 mg daily. 3. Consider further intensification of medical therapy on followup. 4. If the patient continues to have angina on maximal medical therapy, she can be considered for revascularization of the LAD and PLV branch. The LAD would require long segment of stenting to treat the diffuse stenosis in the mid segment. Electronically Signed by: Venkat Tobias M.D. 11/04/2020 01:16 P Venkat Tobias M.D. Date Dict: 11/02/2020/10:50 A/Venkat Tobias M.D. Date Trans: 11/02/2020 11:18 A/kamari [id number] cc: Sanaz Lake M.D. [address] [place] [phone] Normal [facility] SR-XR Spine Cervical 2 or 3 Views IMPORTon 06-29-2019 SR-XR Spine Cervical 2 or 3 Views IMPORT Images were obtained outside of [facility] [id number] Normal [facility] Coding Summary.on 07-30-2018 Coding Summary. CODING DATE: 07/30/2018 FINAL [facility] STATUS: Home (Routine DC) PAYOR: Medicare ADMIT DX: REASON FOR VISIT DX: M54.5 Low back pain FINAL DX: PRINCIPAL: M54.5 Low back pain SECONDARY: M25.551 Pain in right hip M25.552 Pain in left hip Z79.899 Other correction (current) drug therapy Z79.891 long-term (current) use of opiate analgesic PROCEDURES DOCTOR NAME DATE NOTE: The code number assigned matches the documented diagnosis and / or procedure in the patient's chart. However, the narrative phrase printed from the coding software may appear abbreviated, or result in slightly different terminology. Coded By: Dunia Crook CphT Date Saved: 07/30/2018 01:41 pm [facility] Consultation Noteon 07-31-19 Consultation Note HOSPITAL REGULATIONS : ALL Positive Important Negative Findings Shall Be Recorded. Date of 07/22/2018 Consultation: Attending Sanaz Lake M.D. Physician: Consulting Chad Salas M.D. Physician: CHIEF COMPLAINT: Low back and hip pain. HISTORY OF PRESENT ILLNESS: This is a 68 year old female here for a chief complaint of low back and hip pain. She rates her symptoms as a 4 to 7 out of 10. She reports she has a constant dull ache, but she will get the sharper pain with activity. It is present and equal on both sides, and will radiate into the lateral hips and buttocks. She underwent a right knee replacement on June 02. She reports things went well, but her back pain has gotten progressively worse since and she would like to get in for an injection. She reports the Gabapentin and Delta have remained helpful, and she denies side effects from them but the back pain is more and more limiting her ability to function. She denies new neurologic symptoms or issues with bladder or bowel control. Her past medical, psychosocial and family history, along with medications and allergies are available and were reviewed. PHYSICAL EXAMINATION: General: She is a pleasant white female. Vital signs including blood pressure, heart rate and respirations are stable. Head: Head is normocephalic and external ears are normal. Neck: Neck is supple with no lesions. Cardiovascular: No signs of poor perfusion. No peripheral edema. Lungs: Breathing is unlabored. There is no wheezing present. Abdomen: Abdomen is soft and non-distended. Back: There is bilateral lower lumbar and more severe bilateral sacroiliac tenderness. She has a positive Dakotah's sign, Gaenslen's test and thigh thrust test bilaterally. Musculoskeletal: Strength is 5/5. Muscle tone is normal. Neurologic: Sensation is intact throughout. Her reflexes are diminished but symmetric. Psychiatric: Affect is appropriate. She is alert and oriented. ASSESSMENT: This is a 68 year old female here for a chief complaint of bilateral low back and hip pain. Her signs and symptoms are consistent with the combination of sacroiliitis and lumbosacral spondylosis. Given her current examination I think the sacroiliac joints are the primary pain generator. I reviewed an [place] [employer] report on her, which is appropriate. I also reviewed her operative note. PLAN: I addressed options with her and I am going to refill the Delta at a dose of 5/325 one tablet twice a day as needed, and since she is two months out from her surgery and is having worsening sacroiliac pain we will proceed with a left and right sacroiliac joint injection under fluoroscopy at her next visit. I went over the potential risks and benefits of this with her and she is in agreement to proceed. She has gotten over three months of over 60% pain relief from the previous injections. We will wait until after the of this month to make sure she gets the full two months after surgery. I am also going to continue her Gabapentin at the same dose, and I will see her for follow-up three weeks afterwards for a repeat evaluation. Chad Salas M.D. [facility] Dictated: 07/22/2018 #[id number] Typed: 07/28/2018 #[id number] cc: Lewis Lee M.D. [facility] Comment on above: Result Comment: Elec tronically Signed By: Josue SOMMERS, Chad\.br\Date and Time Signed: 07/30/18 14:32 EDT Vital Signs Date Time Vital Sign Value Performing Clinician Facility 01-21-2023 10:53-0400 Heart rate 48 /min Prudencio Payan [facility] 01-21-2023 10:53-0400 SaO2% (BldA) [Mass fraction] 95 % Prudencio Payan [facility] 01-21-2023 10:53-0400 Diastolic blood pressure 77 mm[Hg] Prudencio Payan [facility] 01-21-2023 10:53-0400 Mean blood pressure 91 mm[Hg] Prudencio Payan [facility] 01-21-2023 10:53-0400 Systolic blood pressure 118 mm[Hg] Prudencio Payan [facility] 01-21-2023 10:53-0400 Respiratory rate 16 /min Prudencio Payan [facility] 01-21-2023 10:48-0400 Diastolic blood pressure 71 mm[Hg] Prudencio Payan [facility] 01-21-2023 10:48-0400 Heart rate 51 /min Prudencio Payan [facility] 01-21-2023 10:48-0400 SaO2% (BldA) [Mass fraction] 93 % Prudencio Payan [facility] 01-21-2023 10:48-0400 Systolic blood pressure 113 mm[Hg] Prudencio Payan [facility] 01-21-2023 09:51-0400 Heart rate 53 /min Prudencio Payan [facility] 01-21-2023 09:51-0400 SaO2% (BldA) [Mass fraction] 95 % Flannery Schuyler [facility] 01-21-2023 09:51-0400 Respiratory rate 16 /min Prudencio Payan [facility] 01-21-2023 09:47-0400 Body temperature 97.7 [degF] Prudencio Schuyler [facility] 01-21-2023 09:46-0400 Blood Pressure Location Prudencio Schuyler [facility] 01-21-2023 09:46-0400 Diastolic blood pressure 66 mm[Hg] Prudencio Payan [facility] 01-21-2023 09:46-0400 Mean blood pressure 79 mm[Hg] Prudencio Payan [facility] 01-21-2023 09:46-0400 Systolic blood pressure 104 mm[Hg] Prudencio Payan [facility] 12-26-2022 14:00-0400 Diastolic blood pressure 72 mm[Hg] Indiana Walsh [facility] 12-26-2022 14:00-0400 Heart rate 59 /min Indiana Walsh [facility] 12-26-2022 14:00-0400 Mean blood pressure 91 mm[Hg] Indiana Awlsh [facility] 12-26-2022 14:00-0400 Respiratory rate 14 /min Indiana Walsh [facility] 12-26-2022 14:00-0400 Systolic blood pressure 130 mm[Hg] Indiana Walsh [facility] 07-04-2022 14:40-0500 Diastolic blood pressure 87 mm[Hg] Indiana Walsh [facility] 07-04-2022 14:40-0500 Heart rate 61 /min Indiana Walsh [facility] 07-04-2022 14:40-0500 Mean blood pressure 107 mm[Hg] Indiana Walsh [facility] 07-04-2022 14:40-0500 Respiratory rate 18 /min Indiana Walsh [facility] 07-04-2022 14:40-0500 Systolic blood pressure 146 mm[Hg] Indiana Walsh [facility] 06-10-2022 10:50-0500 Diastolic blood pressure 85 mm[Hg] Christ Rodriguez [facility] 06-10-2022 10:50-0500 Heart rate 72 /min Christ Rodriguez [facility] 06-10-2022 10:50-0500 Mean blood pressure 105 mm[Hg] Christ Rodriguez [facility] 06-10-2022 10:50-0500 Respiratory rate 18 /min Christ Rodriguez [facility] 06-10-2022 10:50-0500 Systolic blood pressure 146 mm[Hg] Christ Rodriguez [facility] 06-02-2022 12:49-0500 Diastolic blood pressure 74 mm[Hg] Indiana Walsh [facility] 06-02-2022 12:49-0500 Heart rate 59 /min Indiana Walsh [facility] 06-02-2022 12:49-0500 Mean blood pressure 91 mm[Hg] Indiana Walsh [facility] 06-02-2022 12:49-0500 Respiratory rate 18 /min Indiana Walsh [facility] 06-02-2022 12:49-0500 Systolic blood pressure 126 mm[Hg] Indiana Walsh [facility] 04-30-2022 08:56-0500 Heart rate 56 /min Chad Zumbar [facility] 04-30-2022 08:56-0500 SaO2% (BldA) [Mass fraction] 94 % Chad Zumbar [facility] 04-30-2022 08:56-0500 Diastolic blood pressure 70 mm[Hg] Chad Zumbar [facility] 04-30-2022 08:56-0500 Mean blood pressure 87 mm[Hg] Chad Zumbar [facility] 04-30-2022 08:56-0500 Systolic blood pressure 119 mm[Hg] Chad Zumbar [facility] 04-30-2022 08:56-0500 Respiratory rate 16 /min Chad Zumbar [facility] 04-30-2022 08:50-0500 Diastolic blood pressure 72 mm[Hg] Chad Zumbar [facility] 04-30-2022 08:50-0500 Heart rate 58 /min Chad Zumbar [facility] 04-30-2022 08:50-0500 Respiratory rate 16 /min Chad Zumbar [facility] 04-30-2022 08:50-0500 SaO2% (BldA) [Mass fraction] 93 % Chad Zumbar [facility] 04-30-2022 08:50-0500 Systolic blood pressure 114 mm[Hg] Chad Zumbar [facility] 04-30-2022 08:14-0500 Diastolic blood pressure 56 mm[Hg] Chad Zumbar [facility] 04-30-2022 08:14-0500 Heart rate 57 /min Chad Zumbar [facility] 04-30-2022 08:14-0500 Mean blood pressure 77 mm[Hg] Chad Zumbar [facility] 04-30-2022 08:14-0500 Systolic blood pressure 120 mm[Hg] Chad Zumbar [facility] 04-30-2022 08:13-0500 Respiratory rate 14 /min Chad Zumbar [facility] 04-30-2022 08:13-0500 SaO2% (BldA) [Mass fraction] 94 % Chad Zumbar [facility] 04-30-2022 08:12-0500 Body temperature 97.52 [degF] Chad Zumbar [facility] 03-27-2022 15:35-0500 Diastolic blood pressure 61 mm[Hg] Chad Zumbar [facility] 03-27-2022 15:35-0500 Heart rate 58 /min Chad Zumbar [facility] 03-27-2022 15:35-0500 Mean blood pressure 83 mm[Hg] Chad Zumbar [facility] 03-27-2022 15:35-0500 Respiratory rate 16 /min Chad Zumbar [facility] 03-27-2022 15:35-0500 Systolic blood pressure 127 mm[Hg] Chad Zumbar [facility] 01-23-2022 13:01-0400 Diastolic blood pressure 91 mm[Hg] Chad Zumbar [facility] 01-23-2022 13:01-0400 Diastolic blood pressure 84 mm[Hg] Chad Zumbar [facility] 01-23-2022 13:01-0400 Heart rate 91 /min Chad Zumbar [facility] 01-23-2022 13:01-0400 Heart rate 61 /min Chad Zumbar [facility] 01-23-2022 13:01-0400 Mean blood pressure 103 mm[Hg] Chad Zumbar [facility] 01-23-2022 13:01-0400 Respiratory rate 14 /min Chad Zumbar [facility] 01-23-2022 13:01-0400 Respiratory rate 16 /min Chad Zumbar [facility] 01-23-2022 13:01-0400 Systolic blood pressure 151 mm[Hg] Chad Zumbar [facility] 01-23-2022 13:01-0400 Systolic blood pressure 142 mm[Hg] Chad Zumbar [facility] 01-08-2022 14:47-0400 Respiratory rate 16 /min XUANDIANA STALLWORTH [facility] 11-26-2021 15:00-0400 Body height 158.75 cm Angela Rodriguez Other [facility] Other 11-26-2021 15:00-0400 Body mass index (BMI) [Ratio] 38.51 kg/m2 Angela Rodriguez Other [facility] Other 11-26-2021 15:00-0400 Body temperature 101 [degF] Angela Rodriguez Other [facility] Other 11-26-2021 15:00-0400 Body weight 97.07 kg Angela Rodriguez Other [facility] Other 11-26-2021 15:00-0400 SaO2% (BldA) [Mass fraction] 91 % Angela Rodriguez Other [facility] Other 11-21-2021 15:30-0400 Diastolic blood pressure 88 mm[Hg] Chad Zumbar [facility] 11-21-2021 15:30-0400 Heart rate 60 /min Chad Salas [facility] 11-21-2021 15:30-0400 Mean blood pressure 113 mm[Hg] Chad Salas [facility] 11-21-2021 15:30-0400 Respiratory rate 16 /min Chad Salas [facility] 11-21-2021 15:30-0400 Systolic blood pressure 162 mm[Hg] Chad Salas [facility] 11-07-2021 12:00-0400 Diastolic blood pressure 80 mm[Hg] Susie Guzmán Jr. [facility] 11-07-2021 12:00-0400 Heart rate 56 /min Susie Guzmán Jr. [facility] 11-07-2021 12:00-0400 Respiratory rate 18 /min Susie Guzmán Jr. [facility] 11-07-2021 12:00-0400 SaO2% (BldA) [Mass fraction] 96 % Susie Guzmán Jr. [facility] 11-07-2021 12:00-0400 Systolic blood pressure 175 mm[Hg] Susie Guzmán Jr. [facility] 11-07-2021 11:13-0400 Blood Pressure Location Susie Guzmán Jr. [facility] 11-07-2021 11:13-0400 Body temperature 97.52 [degF] Susie Guzmán Jr. [facility] 11-07-2021 11:13-0400 Diastolic blood pressure 90 mm[Hg] Susie Guzmán Jr. [facility] 11-07-2021 11:13-0400 Heart rate 59 /min Susie Guzmán Jr. [facility] 11-07-2021 11:13-0400 Mean blood pressure 120 mm[Hg] Susie Guzmán Jr. [facility] 11-07-2021 11:13-0400 Respiratory rate 20 /min Susie Guzmán Jr. [facility] 11-07-2021 11:13-0400 SaO2% (BldA) [Mass fraction] 97 % Susie Guzmán Jr. [facility] 11-07-2021 11:13-0400 Systolic blood pressure 181 mm[Hg] Susie Guzmán Jr. [facility] 11-07-2021 11:05-0400 Body temperature 96.8 [degF] Susie Guzmán Jr. [facility] 11-07-2021 11:05-0400 Diastolic blood pressure 93 mm[Hg] Susie Guzmán Jr. [facility] 11-07-2021 11:05-0400 Heart rate 61 /min Susie Guzmán Jr. [facility] 11-07-2021 11:05-0400 Respiratory rate 22 /min Susie Guzmán Jr. [facility] 11-07-2021 11:05-0400 SaO2% (BldA) [Mass fraction] 97 % Susie Guzmán Jr. [facility] 11-07-2021 11:05-0400 Systolic blood pressure 177 mm[Hg] Susie Guzmán Jr. [facility] 11-07-2021 10:50-0400 Respiratory rate 19 /min Susie Guzmán Jr. [facility] 11-07-2021 10:45-0400 Respiratory rate 15 /min Susie Guzmán Jr. [facility] 11-07-2021 10:38-0400 Body temperature 96.8 [degF] Susie Guzmán Jr. [facility] 11-07-2021 08:04-0400 Mean blood pressure 119 mm[Hg] Susie Guzmán Jr. [facility] 11-07-2021 07:54-0400 Mean blood pressure 108 mm[Hg] Susie Guzmán Jr. [facility] 11-07-2021 07:53-0400 Body temperature 98.06 [degF] Susie Guzmán Jr. [facility] 11-07-2021 07:53-0400 Respiratory rate 20 /min Susie Guzmán Jr. [facility] 11-07-2021 07:53-0400 Heart rate 66 /min Susie Guzmán Jr. [facility] 10-23-2021 13:46-0400 Diastolic blood pressure 94 mm[Hg] Chad Fabianumbar [facility] 10-23-2021 13:46-0400 Heart rate 57 /min Chad Peraltaumbar [facility] 10-23-2021 13:46-0400 Mean blood pressure 122 mm[Hg] Chad Zumbar [facility] 10-23-2021 13:46-0400 SaO2% (BldA) [Mass fraction] 95 % Chad Zumbar [facility] 10-23-2021 13:46-0400 Systolic blood pressure 179 mm[Hg] Chad Zumbar [facility] 10-23-2021 13:46-0400 Respiratory rate 12 /min Chad Zumbar [facility] 10-23-2021 13:44-0400 Diastolic blood pressure 100 mm[Hg] Chad Zumbar [facility] 10-23-2021 13:44-0400 Systolic blood pressure 194 mm[Hg] Chad Zumbar [facility] 10-23-2021 13:36-0400 Diastolic blood pressure 106 mm[Hg] Chad Zumbar [facility] 10-23-2021 13:36-0400 Heart rate 71 /min Chad Zumbar [facility] 10-23-2021 13:36-0400 Respiratory rate 16 /min Chad Zumbar [facility] 10-23-2021 13:36-0400 SaO2% (BldA) [Mass fraction] 98 % Chad Zumbar [facility] 10-23-2021 13:36-0400 Systolic blood pressure 199 mm[Hg] Chad Zumbar [facility] 10-23-2021 12:31-0400 Body temperature 98.24 [degF] Chad Zumbar [facility] 10-23-2021 12:31-0400 Heart rate 64 /min Chad Zumbar [facility] 10-23-2021 12:31-0400 Mean blood pressure 111 mm[Hg] Chad Zumbar [facility] 10-23-2021 12:31-0400 SaO2% (BldA) [Mass fraction] 94 % Chad Zumbar [facility] 10-23-2021 12:29-0400 Respiratory rate 14 /min Chad Salas [facility] 10-22-2021 11:05-0400 Blood Pressure Location Susie Guzmán Jr. [facility] 10-22-2021 11:05-0400 Diastolic blood pressure 70 mm[Hg] Susie Guzmán Jr. [facility] 10-22-2021 11:05-0400 Heart rate 68 /min Susie Guzmán Jr. [facility] 10-22-2021 11:05-0400 Systolic blood pressure 124 mm[Hg] Susie Guzmán Jr. [facility] 09-25-2021 14:30-0400 Body height 158.75 cm Lonnie Vuong Other [facility] Other 09-25-2021 14:30-0400 Body mass index (BMI) [Ratio] 38.51 kg/m2 Lonnie Vuong Other [facility] Other 09-25-2021 14:30-0400 Body weight 97.07 kg Lonnie Vuong Other [facility] Other Encounters Encounter Date Encounter Type Care Provider Facility Start: 03-18-2023 End: 03-18-2023 ambulatory JULI [facility] Start: 02-12-2023 End: 02-13-2023 ambulatory Prudencio Payan Facility:[facility] Start: 01-21-2023 End: 01-22-2023 ambulatory Prudencio Payan Facility:[facility] Start: 01-21-2023 End: 01-21-2023 Patient encounter procedure Prudencio Payan [facility] Start: 12-26-2022 End: 12-27-2022 ambulatory Indiana Walsh Facility:[facility] Start: 12-26-2022 End: 12-26-2022 Patient encounter procedure Indiana Walsh [facility] Start: 12-26-2022 End: 12-26-2022 Pain Management Indiana Walsh [facility] Start: 09-26-2022 End: 09-27-2022 ambulatory Indiana Walsh Facility:[facility] Start: 09-16-2022 End: 09-17-2022 ambulatory 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 Facility: Start: 08-05-2022 End: 08-06-2022 ambulatory UNKNOWN PROVIDER Facility:[facility] Start: 08-05-2022 End: 08-06-2022 Office outpatient visit 15 minutes Christ Rodriguez MD Work Phone: [facility] Comment on above: Cervical spondylosis with myelopathy (Primary Dx) Start: 08-05-2022 ambulatory Indiana Jillian Facilit y:[facility] Start: 08-04-2022 [facility] Start: 07-30-2022 End: 07-31-2022 Orders Only Christ Rodriguez MD Work Phone: [facility] Comment on above: Cervical spondylosis with myelopathy Start: 07-04-2022 End: 07-05-2022 ambulatory Indiana Walsh Facility:[facility] Start: 07-04-2022 End: 07-04-2022 Patient encounter procedure Indiana Walsh [facility] Start: 07-04-2022 End: 07-04-2022 Pain Management Indiana Walsh [facility] Start: 06-12-2022 End: 06-13-2022 ambulatory Chad Salas Facility:[facility] Start: 06-12-2022 End: 06-12-2022 Patient encounter procedure Chad Salas [facility] Start: 06-10-2022 End: 06-11-2022 ambulatory SANAZ LAKE Facility:[facility] Start: 06-10-2022 End: 06-10-2022 Patient encounter procedure Christ Rodriguez [facility] Start: 06-06-2022 End: 06-07-[address] ANGELY DUENAS Facility:[facility] Start: 06-02-2022 End: 06-03-2022 ambulatory Indiana Walsh Facility:[facility] Start: 06-02-2022 End: 06-02-2022 Patient encounter procedure Indiana Walsh [facility] Start: 06-02-2022 End: 06-02-2022 Pain Management Indiana Walsh [facility] Start: 05-20-2022 End: 05-21-[address] SANAZ LAKE . Facility:[facility] Start: 05-07-2022 End: 05-08-[address] ABDI ACOSTA Facility:[facility] Start: 04-30-2022 End: 04-30-2022 Pain Management Chad Salas [facility] Start: 04-24-2022 End: 04-25-[address] ABDI ACOSTA Facility:[facility] Start: 04-07-2022 End: 04-08-[address] SANAZ LAKE . Facility:[facility] Start: 04-01-2022 End: 04-01-2022 Patient encounter procedure Chad Salas [facility] Start: 03-31-2022 End: 04-01-[address] VENKAT TOBIAS Facility:[facility] Start: 03-27-2022 End: 03-27-2022 Pain Management Chad Zshannon [facility] Start: 02-14-2022 End: 02-16-2022 Evaluation and management of inpatient DR FER MCKENNA . Facility:[facility] Start: 01-23-2022 End: 01-23-2022 Pain Management Chad Salas [facility] Start: 01-17-2022 End: 01-17-2022 Patient encounter procedure Dakotah EMERY [facility] Start: 01-16-[address] VENKAT TOBIAS Fac ility:[facility] Start: 01-15-2022 End: 01-15-2022 Patient encounter procedure Savannah Bruner [facility] Start: 01-10-2022 End: 01-11-2022 ambulatory XUAN STALLWORTH Facility:[facility] Start: 01-08-2022 End: 01-08-2022 Patient encounter procedure XUAN STALLWORTH [facility] Start: 01-07-2022 End: 01-08-[address] SUSIE Sunshine Facility:[facility] Start: 12-17-2021 End: 12-18-[address] SANAZ LAKE . Facility:[facility] Start: 11-26-2021 End: 11-26-2021 ambulatory Angela Rodriguez Other [facility] Other Start: 11-26-2021 Office outpatient visit 15 minutes Angela Rodriguez [facility] Start: 11-21-2021 End: 11-21-2021 Patient encounter procedure Chad Krishnamurthyar [facility] Start: 11-21-2021 End: 11-21-2021 Pain Management Chad Peraltaumbar [facility] Start: 11-08-2021 End: 11-08-[address] SANAZ LAKE . Facility:[facility] Start: 11-07-2021 End: 11-07-2021 Admission to same day surgery center Susie Guzmán Jr. [facility] Start: 10-31-2021 End: 10-31-2021 Patient encounter procedure Susie Guzmán Jr. [facility] Start: 10-31-2021 End: 10-31-[address] SANAZ LAKE . Facility:[facility] Start: 10-30-2021 End: 10-30-2021 ambulatory Lonnie Vuong Other [facility] Other Start: 10-30-2021 Telephone encounter Lonnie Vuong [facility] Start: 10-25-2021 End: 10-26-[address] SANAZ LAKE . Facility:[facility] Start: 10-23-2021 End: 10-23-2021 Pain Management Chad Krishnamurthyar [facility] Start: 10-22-2021 End: 10-22-2021 Patient encounter procedure Susie Guzmán Jr. [facility] Start: 10-10-2021 End: 10-10-[address] SANAZ LAKE . Facility: Start: 10-09-2021 End: 10-09-2021 ambulatory Lonnie Vuong Facility:[facility] Start: 09-25-2021 End: 09-25-2021 ambulatory Lonnie Vuong Other [facility] Other Start: 09-25-2021 Office outpatient visit 25 minutes Lonnie Vuong [facility] Start: 09-24-2021 End: 09-25-[address] SANAZ LAKE . Facility: Start: 09-23-2021 End: 09-24-[address] SANAZ LAKE . Facility: Start: 11-02-2020 End: 11-03-2020 ambulatory PROVIDER UNKNOWN Facility:[facility] Procedures Date Procedure Procedure Detail Performing Clinician Start: 07-30-2022 End: 07-30-2022 MR NEURO IMAGE IMPORT Christ Lopez Work Phone: Start: 07-30-2022 End: 07-30-2022 XRAY HEAD/SPINE IMAGE IMPORT Christ Rodriguez MD Work Phone: Start: 04-30-2022 Epidural injection o f lumbar spine using fluoroscopic guidance Indiana Walsh Comment on above: L5/S1-50% relief Start: 11-07-2021 Extracorporeal shock wave lithotripsy of calculus of kidney Susie Guzmán Jr. Start: 10-23-2021 Epidural injection o f lumbar spine using fluoroscopic guidance Chad Salas Comment on above: L5/S1 60% relief Start: 04-29-2021 Cystoscope, device ( physical object) Susie Guzmán Jr. Start: 04-10-2021 Radiofrequency ablat ion of medial branch of lumbar nerve using fluoroscopic guidance Susie Guzmán Jr. Comment on above: L3-L5 20% relief Start: 05-16-2020 Injection of nerve r oot of lumbar spine using fluoroscopic guidance Susie Guzmán Jr. Comment on above: Bilatateral L5- 20% relief Start: 01-25-2020 Radiofrequency ablat ion of medial branch of lumbar nerve using fluoroscopic guidance Susie Guzmán Jr. Comment on above: B/L S1-S3 RFA 35% re lief Start: 11-30-2019 Injection of sacroil iac joint using fluoroscopic guidance Susie Guzmán Jr. Comment on above: B/L SIJI right 20% l eft 20% Start: 10-05-2019 Radiofrequency ablat ion of medial branch of lumbar nerve using fluoroscopic guidance Susie Guzmán Jr. Comment on above: B/L L3-L4 RFA 80% re lief that continues Start: 06-28-2019 Laminectomy Susie yeh Jr. Comment on above: CERVICAL FUSION POST ERIOR, C3-T1 Start: 04-27-2019 Injection of sacroil iac joint using fluoroscopic guidance Susie Guzmán Jr. Comment on above: B/L 60% to present Start: 03-16-2019 Radiofrequency ablat ion of medial branch of lumbar nerve using fluoroscopic guidance Susie Guzmán Jr. Comment on above: B/L L3-S1 55% relief Start: 01-19-2019 Injection of sacroil iac joint using fluoroscopic guidance Susie Guzmán Jr. Comment on above: B/L 75% relief Start: 12-09-2018 Partial substernal thyroidectomy Susie Guzmán Jr. Comment on above: right Start: 08-04-2018 Injection of sacroil iac joint using fluoroscopic guidance Susie Guzmán Jr. Comment on above: 65% relief to presen t Start: 01-22-2019 Arthroplasty of knee Do fiona Guzmán Jr. Comment on above: RIGHT Start: 01-06-2018 Injection of sacroil iac joint using fluoroscopic guidance Susie Guzmán Jr. Comment on above: bilateral SJI 65% re lief Start: 09-16-2017 Radiofrequency ablat ion of medial branch of lumbar nerve using fluoroscopic guidance Susie Guzmán Jr. Comment on above: bilat L2-L5 MB RFA- 50% relief at time of OV Start: 08-05-2017 Injection of sacroil iac joint using fluoroscopic guidance Susie Guzmán Jr. Comment on above: b/l reallly no sanches e in back pain approx 100 %relief on right buttock pain approx 70 % relief left buttock pain Start: 06-08-2017 Total knee replacement Susie Guzmán Jr. Comment on above: Left. KNEE TOTAL ARTHROPLA STY Start: 04-01-2017 sacroiliac joint inj ection 18 Susie Guzmán Jr. Comment on above: B/L 40% relief Start: 04-01-2017 sacroiliac joint inj ection 19 Chad Josue Comment on above: B/L 40% relief Start: 04-01-2017 sacroiliac joint inj ection 20 Indiana Walsh Comment on above: B/L 40% relief Start: 12-09-2016 Gel shots in left knee 19 Susie Guzmán Jr. Comment on above: 3 times 0% relief Start: 12-09-2016 Gel shots in left knee 20 Chad Peraltamalunorah Comment on above: 3 times 0% relief Start: 12-09-2016 Gel shots in left knee 21 Indiana Walsh Comment on above: 3 times 0% relief Start: 11-12-2016 Radiofrequency ablat ion of medial branch of lumbar nerve using fluoroscopic guidance Susie Guzmán Jr. Comment on above: Right L2-L5 30 % rel ief after 2 weeks Start: 10-29-2016 Radiofrequency ablat ion of medial branch of lumbar nerve using fluoroscopic guidance Susie Guzmán Jr. Comment on above: left 30 % relief imm ediate Start: 09-17-2016 Injection of facet j oint using fluoroscopic guidance Susie Guzmán Jr. Comment on above: B/L L3-S1 70% relief for 2 cyndi rs still has 305 relief Start: 06-04-2016 Injection into facet joint of lumbar spine using fluoroscopic guidance Susie Guzmán Jr. Comment on above: B/L L3-S1 70% relief to present Start: 02-27-2016 Injection of sacroil iac joint using fluoroscopic guidance Susie Guzmán Jr. Comment on above: B/L 60% relief for 4 day s Start: 11-21-2015 Injection of sacroil iac joint using fluoroscopic guidance Susie Guzmán Jr. Comment on above: bilateral 60% relief andd still working Appendectomy Susie Sunshine Arthroplasty of knee Susie Guzmán Jr. Cholecystectomy Susie Guzmán Jr. Hysterectomy Susie Sunshine Injection of nerve r oot of lumbar spine using fluoroscopic guidance Susie Guzmán Jr. Comment on above: bilateal L4- 40% rel ief Thyroidectomy Susie oneill Plan of Treatment Date Care Activity Detail Author Start: 03-31-2027 Cholesterol [Mass/volume] in Serum or Plasma Cholesterol [facility] Start: 08-05-2022 End: 08-05-2022 Patient encounter procedure 08/05/2022 Office Visit Orthopedics Christ Rodriguez MD [address] [place] [address] [facility] Start: 02-08-2022 Influenza vaccination Influenza Vaccine (#1) [facility] Start: 01-10-2016 Annual wellness visit Annual Wellness Visit ([id number]) [facility] Start: 2015 Pneumococcal vaccination Pneumococcal Vaccine(s) (65+ yrs) (1 - PCV) [facility] Start: 2015 Screening for osteoporosis Bone Densitometry [facility] Start: 01-31-2000 Shingles (RZV) Vaccine (1 of 2) Shingles (RZV) Vaccine (1 of 2) [facility] Start: 1995 Cholesterol [Mass/volume] in Serum or Plasma Cholesterol [facility] Start: 1995 Screening for malignant neoplasm of colon [facility] Start: 1990 Scre[facility] for malignant neoplasm of breast [facility] [place] Start: 01-31-1968 Hepatitis C screening Hepatitis C Antibody [facility] Start: 01-31-1968 Tetanus + diphtheria + acellular pertussis vaccine (product) [facility] [place] Start: 1950 Screening for malignant neoplasm of colon Colonoscopy [facility] Immunizations Immunization Date Immunization Notes Care Provider Fa cility 02-15-2022 influenza, high dose seasonal, preservative-free [facility] 05-15-2021 SARS-CoV-2 (COVID-19 ) mRNA BNT-162b2 vax Chad Zumbar [facility] 04-27-2021 influenza virus vacc ine, unspecified formulation Chad Zumbar [facility] 08-07-2020 SARS-CoV-2 (COVID-19 ) mRNA BNT-162b2 vax Chad Zumbar [facility] 07-16-2020 SARS-CoV-2 (COVID-19 ) mRNA BNT-162b2 vax Chad Zumbar [facility] 07-09-2020 SARS-CoV-2 (COVID-19 ) mRNA BNT-162b2 vax Susie Guzmán Jr. [facility] 06-11-2020 SARS-CoV-2 (COVID-19 ) mRNA BNT-162b2 vax Susie Guzmán Jr. [facility] 02-26-2019 influenza virus vacc ine, unspecified formulation Chad Zumbar [facility] 02-26-2019 pneumococcal polysaccharide vaccine, 23 valent Chad Zumbar [facility] 02-21-2019 influenza virus vacc ine, unspecified formulation Chad Zumbar [facility] 02-17-2018 pneumococcal polysaccharide vaccine, 23 valent Chad Zumbar [facility] 02-09-2018 influenza virus vacc ine, unspecified formulation Chad Zumbar [facility] 02-09-2018 pneumococcal conjuga te vaccine, 13 valent Chad Zumbar [facility] 02-08-2017 influenza virus vacc ine, unspecified formulation Chad Zumbar [facility] 03-12-2015 influenza virus vacc ine, unspecified formulation Cahd Zumbar [facility] 03-23-2014 influenza virus vacc ine, unspecified formulation Chad Zumbar [facility] 03-10-2003 pneumococcal polysaccharide vaccine, 23 valent Chad Zumbar [facility] Payers Date Payer Category Payer Medicare MEDICARE - RAILR OAD MEDICARE RAILROAD [employer] [id number] 2015-Present [address] [address] [place] [address] Medicare [id number] 2015 Unknown [id number] 1959 Medicare [id number] 1959 Self-pay 1959 Unknown [id number] 1950 Unknown [id number] 2.16.840.1.694106.3.579.2.647 1950 Unknown [id number] 2.16.840.1.619012.3.579.2.732 1950 Unknown [id number] 2.16.840.1.869427.3.579.2.732 1950 Unknown [id number] 2.16.840.1.129447.3.579.2.732 1950 Unknown [id number] 2.16.840.1.798293.3.579.2.732 1950 Unknown [id number] 2.16.840.1.545469.3.579.2.732 1950 Unknown [id number] 2.16.840.1.604931.3.579.2.732 1950 Unknown [id number] 2.16.840.1.448657.3.579.2.593 1950 Unknown [id number] 2.16.840.1.534488.3.579.2.593 1950 Unknown [id number] 2.16.840.1.557116.3.579.2.593 1950 Unknown [id number] 2.16.840.1.137861.3.579.2.593 1950 Unknown [id number] 2.16.840.1.713449.3.579.2.593 1950 Unknown [id number] 2.16.840.1.088412.3.579.2.593 1950 Unknown [id number] 2.16.840.1.371181.3.579.2.593 1950 Unknown [id number] 2.16.840.1.666044.3.579.2.593 1950 Unknown [id number] 2.16.840.1.931992.3.579.2.593 1950 Unknown [id number] 2.16.840.1.644724.3.579.2.593 1950 Unknown [id number] 2.16.840.1.574942.3.579.2.593 1950 Unknown [id number] 2.16.840.1.566049.3.579.2.593 1950 Unknown [id number] 2.16.840.1.659809.3.579.2.593 1950 Unknown [id number] 2.16.840.1.499972.3.579.2.593 1950 Unknown [id number] 2.16.840.1.652930.3.579.2.593 1950 Unknown [id number] 2.16.840.1.095930.3.579.2.593 1950 Unknown [id number] 2.16.840.1.624050.3.579.2.593 1950 Unknown [id number] 2.16.840.1.601971.3.579.2.593 1950 Unknown [id number] 2.16.840.1.279516.3.579.2.593 1950 Unknown [id number] 2.16.840.1.629127.3.579.2.727 1950 Unknown [id number] 2.16.840.1.939597.3.579.2.727 1950 Unknown [id number] 2.16.840.1.411140.3.579.2.727 1950 Unknown [id number] 2.16.840.1.897571.3.579.2.727 1950 Unknown [id number] 2.16.840.1.293997.3.579.2.727 1950 Unknown [id number] 2.16.840.1.238030.3.579.2.727 1950 Unknown [id number] 2.16.840.1.251222.3.579.2.727 1950 Unknown [id number] 2.16.840.1.316073.3.579.2.727 1950 Unknown [id number] 2.16.840.1.802043.3.579.2.727 1950 Unknown [id number] 2.16.840.1.511445.3.579.2.727 1950 Unknown [id number] 2.16.840.1.034180.3.579.2.727 1950 Unknown [id number] 2.16.840.1.431097.3.579.2.727 Unknown [id number] 2.16.840.1.082143.3.579.2.593 Unknown [id number] 2.16.840.1.878857.3.579.2.531 Social History Date Type Detail Facility Start: 05-31-2021 End: 01-08-2022 Tobacco smoking status Ex-smoker (finding) [facility] Other Sex Assigned At Female [facility] Other Tobacco smoking status [facility] Tobacco smoking consumption unknown [facility] Start: 1950 Sex Assigned At Not on file [facility] History of tobacco use Current smoker [facility] History of tobacco use Cigarette Smoker [facility] Start: 08-05-2022 Tobacco use and exposure Smokeless tobacco non-user [facility] Start: 1950 Sex Assigned At Female F [facility] Medical Equipment Procedure Code Equipment Code Equipment Origin al Text Equipment Identifier Dates Capsule endoscopy, for patency of lumen evaluation Video capsule endoscopy system [id number] FDA Start: 09-11-2021 CERVICAL FUSION POSTERIOR Emigdio SOMMERS, Christ A 06/28/19 Unknown Back FDA Start: 06-28-2019 CERVICAL FUSION POSTERIOR Emigdio SOMMERS, Christ A 06/28/19 Unknown Back FDA Start: 06-28-2019 CERVICAL FUSION POSTERIOR Emigdio SOMMERS, Christ A 06/28/19 Unknown Back FDA Start: 06-28-2019 CERVICAL FUSION POSTERIOR Emigdio SOMMERS, Christ A 06/28/19 Unknown Back FDA Start: 06-28-2019 CERVICAL FUSION POSTERIOR Emigdio SOMMERS, Christ A 06/28/19 Unknown Back FDA Start: 06-28-2019 CERVICAL FUSION POSTERIOR Emigdio SOMMERS, Christ A 06/28/19 Unknown Back FDA Start: 06-28-2019 CERVICAL FUSION POSTERIOR Emigdio SOMMERS, Christ A 06/28/19 Unknown Back FDA Start: 06-28-2019 CERVICAL FUSION POSTERIOR Emigdio SOMMERS, Christ A 06/28/19 Unknown Back FDA Start: 06-28-2019 CERVICAL FUSION POSTERIOR Emigdio SOMMERS, Christ A 06/28/19 Unknown Back FDA Start: 06-28-2019 CERVICAL FUSION POSTERIOR Emigdio SOMMERS, Christ A 06/28/19 Unknown Back FDA Start: 06-28-2019 CERVICAL FUSION POSTERIOR Emigdio SOMMERS, Christ A 06/28/19 Unknown Back FDA Start: 06-28-2019 CERVICAL FUSION POSTERIOR Emigdio SOMMERS, Christ A 06/28/19 Unknown Back FDA Start: 06-28-2019 CERVICAL FUSION POSTERIOR Emigdio SOMMERS, Christ A 06/28/19 Unknown Back FDA Start: 06-28-2019 CERVICAL FUSION POSTERIOR Emigdio SOMMERS, Christ A 06/28/19 Unknown Back FDA Start: 06-28-2019 CERVICAL FUSION POSTERIOR Emigdio SOMMERS, Christ A 06/28/19 Unknown Back FDA Start: 06-28-2019 CERVICAL FUSION POSTERIOR Emigdio SOMMERS, Christ A 06/28/19 Unknown Back FDA Start: 06-28-2019 CERVICAL FUSION POSTERIOR Emigdio SOMMERS, Christ A 06/28/19 Unknown Back FDA Start: 06-28-2019 CERVICAL FUSION POSTERIOR Emigdio SOMMERS, Christ A 06/28/19 Unknown Back FDA Start: 06-28-2019 CERVICAL FUSION POSTERIOR Emigdio SOMMERS, Christ A 06/28/19 Unknown Back FDA Start: 06-28-2019 CERVICAL FUSION POSTERIOR Emigdio SOMMERS, Christ A 06/28/19 Unknown Back FDA Start: 06-28-2019 CERVICAL FUSION POSTERIOR Emigdio SOMMERS, Christ A 06/28/19 Unknown Back FDA Start: 06-28-2019 CERVICAL FUSION POSTERIOR Emigdio SOMMERS, Christ A 06/28/19 Unknown Back FDA Start: 06-28-2019 CERVICAL FUSION POSTERIOR Emigdio SOMMERS, Christ A 06/28/19 Unknown Back FDA Start: 06-28-2019 CERVICAL FUSION POSTERIOR Emigdio SOMMERS, Christ A 06/28/19 Unknown Back FDA Start: 06-28-2019 CERVICAL FUSION POSTERIOR Emigdio SOMMERS, Christ A 06/28/19 Unknown Back FDA Start: 06-28-2019 CERVICAL FUSION POSTERIOR Emigdio SOMMERS, Christ A 06/28/19 Unknown Back FDA Start: 06-28-2019 CERVICAL FUSION POSTERIOR Emigdio SOMMERS, Christ A 06/28/19 Unknown Back FDA Start: 06-28-2019 CERVICAL FUSION POSTERIOR Emigdio SOMMERS, Christ A 06/28/19 Unknown Back FDA Start: 06-28-2019 CERVICAL FUSION POSTERIOR Emigdio SOMMERS, Christ A 06/28/19 Unknown Back FDA Start: 06-28-2019 CERVICAL FUSION POSTERIOR Emigdio SOMMERS, Christ A 06/28/19 Unknown Back FDA Start: 06-28-2019 CERVICAL FUSION POSTERIOR Emigdio SOMMERS, Christ A 06/28/19 Unknown Back FDA Start: 06-28-2019 CERVICAL FUSION POSTERIOR Emigdio SOMMERS, Christ A 06/28/19 Unknown Back FDA Start: 06-28-2019 CERVICAL FUSION POSTERIOR Emigdio SOMMERS, Christ A 06/28/19 Unknown Back FDA Start: 06-28-2019 CERVICAL FUSION POSTERIOR Emigdio SOMMERS, Christ A 06/28/19 Unknown Back FDA Start: 06-28-2019 CERVICAL FUSION POSTERIOR Emigdio SOMMERS, Christ A 06/28/19 Unknown Back FDA Start: 06-28-2019 CERVICAL FUSION POSTERIOR Emigdio SOMMERS, Christ A 06/28/19 Unknown Back FDA Start: 06-28-2019 CERVICAL FUSION POSTERIOR Emigdio SOMMERS, Christ A 06/28/19 Unknown Back FDA Start: 06-28-2019 CERVICAL FUSION POSTERIOR Emigdio SOMMERS, Christ A 06/28/19 Unknown Back FDA Start: 06-28-2019 CERVICAL FUSION POSTERIOR Emigdio SOMMERS, Christ A 06/28/19 Unknown Back FDA Start: 06-28-2019 CERVICAL FUSION POSTERIOR Emigdio SOMMERS, Christ A 06/28/19 Unknown Back FDA Start: 06-28-2019 CERVICAL FUSION POSTERIOR Emigdio SOMMERS, Christ A 06/28/19 Unknown Back FDA Start: 06-28-2019 CERVICAL FUSION POSTERIOR Emigdio SOMMERS, Christ A 06/28/19 Unknown Back FDA Start: 06-28-2019 CERVICAL FUSION POSTERIOR Emigdio SOMMERS, Christ A 06/28/19 Unknown Back FDA Start: 06-28-2019 CERVICAL FUSION POSTERIOR Emigdio SOMMERS, Christ A 06/28/19 Unknown Back FDA Start: 06-28-2019 CERVICAL FUSION POSTERIOR Emigdio SOMMERS, Christ A 06/28/19 Unknown Back FDA Start: 06-28-2019 CERVICAL FUSION POSTERIOR Emigdio SOMMERS, Christ A 06/28/19 Unknown Back FDA Start: 06-28-2019 CERVICAL FUSION POSTERIOR Emigdio SOMMERS, Christ A 06/28/19 Unknown Back FDA Start: 06-28-2019 CERVICAL FUSION POSTERIOR Emigdio SOMMERS, Christ A 06/28/19 Unknown Back FDA Start: 06-28-2019 CERVICAL FUSION POSTERIOR Emigdio SOMMERS, Christ A 06/28/19 Unknown Back FDA Start: 06-28-2019 CERVICAL FUSION POSTERIOR Emigdio SOMMERS, Christ A 06/28/19 Unknown Back FDA Start: 06-28-2019 CERVICAL FUSION POSTERIOR Emigdio SOMMERS, Christ A 06/28/19 Unknown Back FDA Start: 06-28-2019 CERVICAL FUSION POSTERIOR Emigdio SOMMERS, Christ A 06/28/19 Unknown Back FDA Start: 06-28-2019 CERVICAL FUSION POSTERIOR Emigdio SOMMERS, Christ A 06/28/19 Unknown Back FDA Start: 06-28-2019 CERVICAL FUSION POSTERIOR Emigdio SOMMERS, Christ A 06/28/19 Unknown Back FDA Start: 06-28-2019 CERVICAL FUSION POSTERIOR Emigdio SOMMERS, Christ A 06/28/19 Unknown Back FDA Start: 06-28-2019 CERVICAL FUSION POSTERIOR Emigdio SOMMERS, Christ A 06/28/19 Unknown Back FDA Start: 06-28-2019 CERVICAL FUSION POSTERIOR Emigdio SOMMERS, Christ A 06/28/19 Unknown Back FDA Start: 06-28-2019 CERVICAL FUSION POSTERIOR Emigdio SOMMERS, Christ A 06/28/19 Unknown Back FDA Start: 06-28-2019 CERVICAL FUSION POSTERIOR Emigdio SOMMERS, Christ A 06/28/19 Unknown Back FDA Start: 06-28-2019 CERVICAL FUSION POSTERIOR Emigdio SOMMERS, Christ A 06/28/19 Unknown Back FDA Start: 06-28-2019 CERVICAL FUSION POSTERIOR Emigdio SOMMERS, Christ A 06/28/19 Unknown Back FDA Start: 06-28-2019 CERVICAL FUSION POSTERIOR Emigdio SOMMERS, Christ A 06/28/19 Unknown Back FDA Start: 06-28-2019 CERVICAL FUSION POSTERIOR Emigdio SOMMERS, Christ A 06/28/19 Unknown Back FDA Start: 06-28-2019 CERVICAL FUSION POSTERIOR Emigdio SOMMERS, Christ A 06/28/19 Unknown Back FDA Start: 06-28-2019 CERVICAL FUSION POSTERIOR Emigdio SOMMERS, Christ A 06/28/19 Unknown Back FDA Start: 06-28-2019 CERVICAL FUSION POSTERIOR Emigdio SOMMERS, Christ A 06/28/19 Unknown Back FDA Start: 06-28-2019 CERVICAL FUSION POSTERIOR Emigdio SOMMERS, Christ A 06/28/19 Unknown Back FDA Start: 06-28-2019 CERVICAL FUSION POSTERIOR Emigdio SOMMERS, Christ A 06/28/19 Unknown Back FDA Start: 06-28-2019 CERVICAL FUSION POSTERIOR Emigdio SOMMERS, Christ A 06/28/19 Unknown Back FDA Start: 06-28-2019 CERVICAL FUSION POSTERIOR Emigdio SOMMERS, Christ A 06/28/19 Unknown Back FDA Start: 06-28-2019 CERVICAL FUSION POSTERIOR Emigdio SOMMERS, Christ A 06/28/19 Unknown Back FDA Start: 06-28-2019 CERVICAL FUSION POSTERIOR Emigdio SOMMERS, Christ A 06/28/19 Unknown Back FDA Start: 06-28-2019 CERVICAL FUSION POSTERIOR Emigdio SOMMERS, Christ A 06/28/19 Unknown Back FDA Start: 06-28-2019 CERVICAL FUSION POSTERIOR Emigdio SOMMERS, Christ A 06/28/19 Unknown Back FDA Start: 06-28-2019 CERVICAL FUSION POSTERIOR Emigdio SOMMERS, Christ A 06/28/19 Unknown Back FDA Start: 06-28-2019 CERVICAL FUSION POSTERIOR Emigdio SOMMERS, Christ A 06/28/19 Unknown Back FDA Start: 06-28-2019 CERVICAL FUSION POSTERIOR Emigdio SOMMERS, Christ A 06/28/19 Unknown Back FDA Start: 06-28-2019 CERVICAL FUSION POSTERIOR Emigdio SOMMERS, Christ A 06/28/19 Unknown Back FDA Start: 06-28-2019 CERVICAL FUSION POSTERIOR Emigdio SOMMERS, Christ A 06/28/19 Unknown Back FDA Start: 06-28-2019 CERVICAL FUSION POSTERIOR Emigdio SOMMERS, Christ A 06/28/19 Unknown Back FDA Start: 06-28-2019 CERVICAL FUSION POSTERIOR Emigdio SOMMERS, Christ A 06/28/19 Unknown Back FDA Start: 06-28-2019 CERVICAL FUSION POSTERIOR Emigdio SOMMERS, Christ A 06/28/19 Unknown Back FDA Start: 06-28-2019 CERVICAL FUSION POSTERIOR Emigdio SOMMERS, Christ A 06/28/19 Unknown Back FDA Start: 06-28-2019 CERVICAL FUSION POSTERIOR Emigdio SOMMERS, Christ A 06/28/19 Unknown Back FDA Start: 06-28-2019 CERVICAL FUSION POSTERIOR Emigdio SOMMERS, Christ A 06/28/19 Unknown Back FDA Start: 06-28-2019 CERVICAL FUSION POSTERIOR mEigdio SOMMERS, Christ A 06/28/19 Unknown Back FDA Start: 06-28-2019 CERVICAL FUSION POSTERIOR Emigdio SOMMERS, Christ A 06/28/19 Unknown Back FDA Start: 06-28-2019 CERVICAL FUSION POSTERIOR Emigdio SOMMERS, Christ A 06/28/19 Unknown Back FDA Start: 06-28-2019 CERVICAL FUSION POSTERIOR Emigdio SOMMERS, Christ A 06/28/19 Unknown Back FDA Start: 06-28-2019 CERVICAL FUSION POSTERIOR Emigdio SOMMERS, Christ A 06/28/19 Unknown Back FDA Start: 06-28-2019 CERVICAL FUSION POSTERIOR Emigdio SOMMERS, Christ A 06/28/19 Unknown Back FDA Start: 06-28-2019 CERVICAL FUSION POSTERIOR Emigdio SOMMERS, Hcrist A 06/28/19 Unknown Back FDA Start: 06-28-2019 CERVICAL FUSION POSTERIOR Emigdio SOMMERS, Christ A 06/28/19 Unknown Back FDA Start: 06-28-2019 CERVICAL FUSION POSTERIOR Emigdio SOMMERS, Christ A 06/28/19 Unknown Back FDA Start: 06-28-2019 CERVICAL FUSION POSTERIOR Emigdio SOMMERS, Christ A 06/28/19 Unknown Back FDA Start: 06-28-2019 CERVICAL FUSION POSTERIOR Emigdio SOMMERS, Christ A 06/28/19 Unknown Back FDA Start: 06-28-2019 CERVICAL FUSION POSTERIOR Emigdio SOMMERS, Christ A 06/28/19 Unknown Back FDA Start: 06-28-2019 CERVICAL FUSION POSTERIOR Emigdio SOMMERS, Christ A 06/28/19 Unknown Back FDA Start: 06-28-2019 CERVICAL FUSION POSTERIOR Emigdio SOMMERS, Christ A 06/28/19 Unknown Back FDA Start: 06-28-2019 CERVICAL FUSION POSTERIOR Emigdio SOMMERS, Christ A 06/28/19 Unknown Back FDA Start: 06-28-2019 CERVICAL FUSION POSTERIOR Emigdio SOMMERS, Christ A 06/28/19 Unknown Back FDA Start: 06-28-2019 CERVICAL FUSION POSTERIOR Emigdio SOMMERS, Christ A 06/28/19 Unknown Back FDA Start: 06-28-2019 CERVICAL FUSION POSTERIOR Emigdio SOMMERS, Christ A 06/28/19 Unknown Back FDA Start: 06-28-2019 CERVICAL FUSION POSTERIOR Emigdio SOMMERS, Christ A 06/28/19 Unknown Back FDA Start: 06-28-2019 CERVICAL FUSION POSTERIOR Emigdio SOMMERS, Christ A 06/28/19 Unknown Back FDA Start: 06-28-2019 CERVICAL FUSION POSTERIOR Emigdio SOMMERS, Christ A 06/28/19 Unknown Back FDA Start: 06-28-2019 CERVICAL FUSION POSTERIOR Emigdio SOMMERS, Christ A 06/28/19 Unknown Back FDA Start: 06-28-2019 CERVICAL FUSION POSTERIOR Emigdio SOMMERS, Christ A 06/28/19 Unknown Back FDA Start: 06-28-2019 CERVICAL FUSION POSTERIOR Emigdio SOMMERS, Christ A 06/28/19 Unknown Back FDA Start: 06-28-2019 CERVICAL FUSION POSTERIOR Emigdio SOMMERS, Christ A 06/28/19 Unknown Back FDA Start: 06-28-2019 CERVICAL FUSION POSTERIOR Emigdio SOMMERS, Christ A 06/28/19 Unknown Back FDA Start: 06-28-2019 CERVICAL FUSION POSTERIOR Emigdio SOMMERS, Christ A 06/28/19 Unknown Back FDA Start: 06-28-2019 CERVICAL FUSION POSTERIOR Emigdio SOMMERS, Christ A 06/28/19 Unknown Back FDA Start: 06-28-2019 CERVICAL FUSION POSTERIOR Emigdio SOMMERS, Christ A 06/28/19 Unknown Back FDA Start: 06-28-2019 CERVICAL FUSION POSTERIOR Emigdio SOMMERS, Christ A 06/28/19 Unknown Back FDA Start: 06-28-2019 CERVICAL FUSION POSTERIOR Emigdio SOMMERS, Christ A 06/28/19 Unknown Back FDA Start: 06-28-2019 CERVICAL FUSION POSTERIOR Emigdio SOMMERS, Christ A 06/28/19 Unknown Back FDA Start: 06-28-2019 CERVICAL FUSION POSTERIOR Emigdio SOMMERS, Christ A 06/28/19 Unknown Back FDA Start: 06-28-2019 CERVICAL FUSION POSTERIOR Emigdio SOMMERS, Christ A 06/28/19 Unknown Back FDA Start: 06-28-2019 CERVICAL FUSION POSTERIOR Emigdio OSMMERS, Christ A 06/28/19 Unknown Back FDA Start: 06-28-2019 CERVICAL FUSION POSTERIOR Emigdio SOMMERS, Christ A 06/28/19 Unknown Back FDA Start: 06-28-2019 CERVICAL FUSION POSTERIOR Emigdio SOMMERS, Christ A 06/28/19 Unknown Back FDA Start: 06-28-2019 CERVICAL FUSION POSTERIOR Emigdio SOMMERS, Christ A 06/28/19 Unknown Back FDA Start: 06-28-2019 CERVICAL FUSION POSTERIOR Emigdio SOMMERS, Christ A 06/28/19 Unknown Back FDA Start: 06-28-2019 CERVICAL FUSION POSTERIOR Emigdio SOMMERS, Christ A 06/28/19 Unknown Back FDA Start: 06-28-2019 CERVICAL FUSION POSTERIOR Emigdio SOMMERS, Christ A 06/28/19 Unknown Back FDA Start: 06-28-2019 CERVICAL FUSION POSTERIOR Emigdio SOMMERS, Christ A 06/28/19 Unknown Back FDA Start: 06-28-2019 CERVICAL FUSION POSTERIOR Emigdio SOMMERS, Christ A 06/28/19 Unknown Back FDA Start: 06-28-2019 CERVICAL FUSION POSTERIOR Emigdio SOMMERS, Christ A 06/28/19 Unknown Back FDA Start: 06-28-2019 CERVICAL FUSION POSTERIOR Emigdio SOMMERS, Christ A 06/28/19 Unknown Back FDA Start: 06-28-2019 CERVICAL FUSION POSTERIOR Emigdio SOMMERS, Christ A 06/28/19 Unknown Back FDA Start: 06-28-2019 CERVICAL FUSION POSTERIOR Emigdio SOMMERS, Christ A 06/28/19 Unknown Back FDA Start: 06-28-2019 CERVICAL FUSION POSTERIOR Emigdio SOMMERS, Christ A 06/28/19 Unknown Back FDA Start: 06-28-2019 CERVICAL FUSION POSTERIOR Emigdio SOMMERS, Christ A 06/28/19 Unknown Back FDA Start: 06-28-2019 CERVICAL FUSION POSTERIOR Emigdio SOMMERS, Christ A 06/28/19 Unknown Back FDA Start: 06-28-2019 CERVICAL FUSION POSTERIOR Emigdio SOMMERS, Christ A 06/28/19 Unknown Back FDA Start: 06-28-2019 CERVICAL FUSION POSTERIOR Emigdio SOMMERS, Christ A 06/28/19 Unknown Back FDA Start: 06-28-2019 CERVICAL FUSION POSTERIOR Emigdio SOMMERS, Christ A 06/28/19 Unknown Back FDA Start: 06-28-2019 CERVICAL FUSION POSTERIOR Emigdio SOMMERS, Christ A 06/28/19 Unknown Back FDA Start: 06-28-2019 CERVICAL FUSION POSTERIOR Emigdio SOMMERS, Christ A 06/28/19 Unknown Back FDA Start: 06-28-2019 CERVICAL FUSION POSTERIOR Emigdio SOMMERS, Christ A 06/28/19 Unknown Back FDA Start: 06-28-2019 CERVICAL FUSION POSTERIOR Emigdio SOMMERS, Christ A 06/28/19 Unknown Back FDA Start: 06-28-2019 CERVICAL FUSION POSTERIOR Emigdio SOMMERS, Christ A 06/28/19 Unknown Back FDA Start: 06-28-2019 CERVICAL FUSION POSTERIOR Emigdio SOMMERS, Christ A 06/28/19 Unknown Back FDA Start: 06-28-2019 CERVICAL FUSION POSTERIOR Emigdio SOMMERS, Christ A 06/28/19 Unknown Back FDA Start: 06-28-2019 CERVICAL FUSION POSTERIOR Emigdio SOMMERS, Christ A 06/28/19 Unknown Back FDA Start: 06-28-2019 CERVICAL FUSION POSTERIOR Emigdio SOMMERS, Christ A 06/28/19 Unknown Back FDA Start: 06-28-2019 CERVICAL FUSION POSTERIOR Emigdio SOMMERS, Christ A 06/28/19 Unknown Back FDA Start: 06-28-2019 CERVICAL FUSION POSTERIOR Emigdio SOMMERS, Christ A 06/28/19 Unknown Back FDA Start: 06-28-2019 CERVICAL FUSION POSTERIOR Emigdio SOMMERS, Chirst A 06/28/19 Unknown Back FDA Start: 06-28-2019 CERVICAL FUSION POSTERIOR Emigdio SOMMERS, Christ A 06/28/19 Unknown Back FDA Start: 06-28-2019 CERVICAL FUSION POSTERIOR Emigdio SOMMERS, Christ A 06/28/19 Unknown Back FDA Start: 06-28-2019 CERVICAL FUSION POSTERIOR Emigdio SOMMERS, Christ A 06/28/19 Unknown Back FDA Start: 06-28-2019 CERVICAL FUSION POSTERIOR Emigdio SOMMERS, Christ A 06/28/19 Unknown Back FDA Start: 06-28-2019 CERVICAL FUSION POSTERIOR Emigdio SOMMERS, Christ A 06/28/19 Unknown Back FDA Start: 06-28-2019 CERVICAL FUSION POSTERIOR Emigdio SOMMERS, Christ A 06/28/19 Unknown Back FDA Start: 06-28-2019 CERVICAL FUSION POSTERIOR Emigdio SOMMERS, Christ A 06/28/19 Unknown Back FDA Start: 06-28-2019 CERVICAL FUSION POSTERIOR Emigdio SOMMERS, Christ A 06/28/19 Unknown Back FDA Start: 06-28-2019 CERVICAL FUSION POSTERIOR Emigdio SOMMERS, Christ A 06/28/19 Unknown Back FDA Start: 06-28-2019 CERVICAL FUSION POSTERIOR Emigdio SOMMERS, Christ A 06/28/19 Unknown Back FDA Start: 06-28-2019 CERVICAL FUSION POSTERIOR Emigdio SOMMERS, Christ A 06/28/19 Unknown Back FDA Start: 06-28-2019 CERVICAL FUSION POSTERIOR Emigdio SOMMERS, Christ A 06/28/19 Unknown Back FDA Start: 06-28-2019 CERVICAL FUSION POSTERIOR Emigdio SOMMERS, Christ A 06/28/19 Unknown Back FDA Start: 06-28-2019 CERVICAL FUSION POSTERIOR Emigdio SOMMERS, Christ A 06/28/19 Unknown Back FDA Start: 06-28-2019 CERVICAL FUSION POSTERIOR Emigdio SOMMERS, Christ A 06/28/19 Unknown Back FDA Start: 06-28-2019 CERVICAL FUSION POSTERIOR Emigdio SOMMERS, Christ A 06/28/19 Unknown Back FDA Start: 06-28-2019 CERVICAL FUSION POSTERIOR Emigdio SOMMERS, Christ A 06/28/19 Unknown Back FDA Start: 06-28-2019 CERVICAL FUSION POSTERIOR Emigdio SOMMERS, Christ A 06/28/19 Unknown Back FDA Start: 06-28-2019 CERVICAL FUSION POSTERIOR Emigdio SOMMERS, Christ A 06/28/19 Unknown Back FDA Start: 06-28-2019 CERVICAL FUSION POSTERIOR Emigdio SOMMERS, Christ A 06/28/19 Unknown Back FDA Start: 06-28-2019 CERVICAL FUSION POSTERIOR Emigdio SOMMERS, Christ A 06/28/19 Unknown Back FDA Start: 06-28-2019 CERVICAL FUSION POSTERIOR Emigdio SOMMERS, Christ A 06/28/19 Unknown Back FDA Start: 06-28-2019 CERVICAL FUSION POSTERIOR Emigdio SOMMERS, Christ A 06/28/19 Unknown Back FDA Start: 06-28-2019 CERVICAL FUSION POSTERIOR Emigdio SOMMERS, Christ A 06/28/19 Unknown Back FDA Start: 06-28-2019 CERVICAL FUSION POSTERIOR Emigdio SOMMERS, Christ A 06/28/19 Unknown Back FDA Start: 06-28-2019 CERVICAL FUSION POSTERIOR Eimgdio SOMMERS, Christ A 06/28/19 Unknown Back FDA Start: 06-28-2019 CERVICAL FUSION POSTERIOR Emigdio SOMMERS, Christ A 06/28/19 Unknown Back FDA Start: 06-28-2019 CERVICAL FUSION POSTERIOR Emigdio SOMMERS, Christ A 06/28/19 Unknown Back FDA Start: 06-28-2019 CERVICAL FUSION POSTERIOR Emigdio SOMMERS, Christ A 06/28/19 Unknown Back FDA Start: 06-28-2019 CERVICAL FUSION POSTERIOR Emigdio SOMMERS, Christ A 06/28/19 Unknown Back FDA Start: 06-28-2019 CERVICAL FUSION POSTERIOR Emigdio SOMMERS, Christ A 06/28/19 Unknown Back FDA Start: 06-28-2019 CERVICAL FUSION POSTERIOR Emigdio SOMMERS, Christ A 06/28/19 Unknown Back FDA Start: 06-28-2019 CERVICAL FUSION POSTERIOR Emigdio SOMMERS, Christ A 06/28/19 Unknown Back FDA Start: 06-28-2019 CERVICAL FUSION POSTERIOR Emigdio SOMMERS, Christ A 06/28/19 Unknown Back FDA Start: 06-28-2019 CERVICAL FUSION POSTERIOR Emigdio SOMMERS, Christ A 06/28/19 Unknown Back FDA Start: 06-28-2019 CERVICAL FUSION POSTERIOR Emigdio SOMMERS, Christ A 06/28/19 Unknown Back FDA Start: 06-28-2019 CERVICAL FUSION POSTERIOR Emigdio SOMMERS, Christ A 06/28/19 Unknown Back FDA Start: 06-28-2019 CERVICAL FUSION POSTERIOR Emigdio SOMMERS, Christ A 06/28/19 Unknown Back FDA Start: 06-28-2019 CERVICAL FUSION POSTERIOR Emigdio SOMMERS, Christ A 06/28/19 Unknown Back FDA Start: 06-28-2019 CERVICAL FUSION POSTERIOR Emigdio SOMMERS, Christ A 06/28/19 Unknown Back FDA Start: 06-28-2019 CERVICAL FUSION POSTERIOR Emigdio SOMMERS, Christ A 06/28/19 Unknown Back FDA Start: 06-28-2019 CERVICAL FUSION POSTERIOR Emigdio SOMMERS, Christ A 06/28/19 Unknown Back FDA Start: 06-28-2019 CERVICAL FUSION POSTERIOR Emigdio SOMMERS, Christ A 06/28/19 Unknown Back FDA Start: 06-28-2019 CERVICAL FUSION POSTERIOR Emigdio SOMMERS, Christ Nugent 06/28/19 Unknown Back FDA Start: 06-28-2019 CERVICAL FUSION POSTERIOR Emigdio SOMMERS, Christ A 06/28/19 Unknown Back FDA Start: 06-28-2019 CERVICAL FUSION POSTERIOR Emigdio SOMMERS, Christ A 06/28/19 Unknown Back FDA Start: 06-28-2019 CERVICAL FUSION POSTERIOR Emigdio SOMMERS, Christ A 06/28/19 Unknown Back FDA Start: 06-28-2019 CERVICAL FUSION POSTERIOR Emigdio SOMMERS, Christ A 06/28/19 Unknown Back FDA Start: 06-28-2019 Functional Status Date Assessment Result Facility 01-21-2023 Functional Status N/A [facility] 12-26-2022 Functional Status N/A [facility] 07-04-2022 Functional Status N/A [facility] 06-10-2022 Functional Status N/A [facility] 06-02-2022 Functional Status N/A [facility] 04-30-2022 Functional Status N/A [facility] 03-27-2022 Functional Status N/A [facility] 01-23-2022 Functional Status N/A [facility] 01-15-2022 Functional Status N/A [facility] 01-08-2022 Functional Status N/A [facility] 11-21-2021 Functional Status N/A [facility] 10-31-2021 Functional Status No [facility] 10-23-2021 Functional Status N/A [facility] 10-22-2021 Functional Status N/A [facility] Clinical Notes 09-25-2021 to 03-18-2023 Note Date & Type Note Facility 03-18-2023 Note Patient here for 1 y ear follow up CAD, hypertension, and hyperlipidemia. Has been falling lately. Still alternates doses of lasix, with 40mg and 20mg every other day. Denies chest pain, palpitations, and lightheadedness. WARREN remains unchanged she says. Had labs in November 2022. Review of Systems Cardiovascular: Positive for dyspnea on exertion. Musculoskeletal: Positive for arthritis, back pain, joint pain, muscle weakness, myalgias and neck pain. Neurological: Positive for weakness. [facility] 03-18-2023 Note [place] [facility] - [facility] Subjective Diann Linder is a 73 y.o. year old female patient being seen for follow up Coronary Artery Disease, Hypertension, Hyperlipidemia, and Shortness of Breath Patient here for 1 year follow up CAD, hypertension, and hyperlipidemia. Has been falling lately. Still alternates doses of lasix, with 40mg and 20mg every other day. Denies chest pain, palpitations, and lightheadedness. WARREN remains unchanged she says. Had labs in November 2022. Patient Active Problem List Diagnosis Coronary arteriosclerosis Dyspnea on exertion High blood pressure Anxiety and depression Arthritis Back pain Sacroiliac joint dysfunction of both sides Smoking Spondylolisthesis at L4-L5 level Trigeminal neuralgia of left side of face Abnormal kidney function Anemia C. difficile diarrhea Glaucoma H/O hematuria Hematuria Hyperlipidemia Hypothyroidism Kidney stones Renal mass Sleep apnea Thyroid cancer ([facility]/HCC) Family History Problem Relation Name Age of Onset Heart failure Mother Social History Tobacco Use Smoking status: Every Day Types: Cigarettes Smokeless tobacco: Never Substance Use Topics Alcohol use: Yes Comment: occasional Drug use: Never ABY Diann is seen in follow-up. Dr. Tobias saw her as a new patient on 08/22/2020. Visit 10/23/2020: She is a 70 yo woman who has been evaluated for dyspnea on exertion. This has been worsening significantly lately and a stress test showed ischemia. No chest pain. No leg swelling. she has hypertension on treatment with bisoprolol-HCTZ and lisinopril. No diabetes. she has CKD 3 with GFR ~50, Cr 1.2-1.3. ECG 01/04/2020: NSR. Mother of CHF. She smoked for many years a pack a day, currently 2 cigarettes a day. Lexiscan Stress test with myocardial perfusion imaging 08/20/2020: area of ischemia in distal anterior wall, LAD distribution. At last visit I optimize medical therapy, I added Imdur and aspirin. Today she reports that she continues to have symptoms of significant shortness of breath on mild exertion. She also has occasional chest pain. Blood testing 09/05/2020: Liver profile normal, cholesterol 212, triglycerides 235, LDL 117, HDL 48. Blood testing 08/09/2020: Hemoglobin 12.3. Blood testing 08/01/2020: Creatinine 1.21. Echocardiogram 09/05/2020: Normal ventricular systolic function, mild diastolic dysfunction, mild tricuspid regurgitation, moderate left atrial dilatation, normal right-sided pressures, no pericardial effusion. Visit of 12/05/2020: After last visit I proceeded with cardiac catheterization on 11/02/2020. This showed severe two-vessel coronary artery disease with 80% diffuse stenosis in the mid LAD and 80% focal stenosis in the mid PLV branch. I intensified medical therapy. I stopped lisinopril and added Ranexa 500 mg twice daily. She reports that she no longer has pain in the shoulder blades but the breathing is still labored with walking. No leg swelling. Visit of 02/25/2021: She is seen in follow-up. She reports that her symptoms are still the same. She continues to be in rehab. She was seen by pulmonary and was prescribed inhalers however she reports that there has not been a change in her symptoms with inhaler therapy. At the same time she reports that there has not been any significant change after I increased her isosorbide mononitrate and Ranexa dosages. Noteworthy is a drop in hemoglobin on recent testing in January 2021 to 9 from 12.2 in August 2020. She has no overt bleeding. PFTs 01/25/2021: Moderate obstruction on spirometry without a bronchodilator response, elevated RV suggests air trapping, mildLY reduced diffusion capacity, overall study compatible with moderate emphysema. Hemoglobin 01/25/2021: 9 [12.2 on 08/09/2020, 11.2 on 10/30/2020] Visit of 08/16/2021: She is seen in follow-up. She was treated with iron for anemia. Today she reports that she has been miserable. She continues to have significant symptoms of shortness of breath and fatigue on mild exertion. She has very tired. She denies chest pain. She has no lower extremity edema. Blood testing 05/23/2021: Hemoglobin 8.5, platelets 245, potassium 4.6, BUN 23, creatinine 1.06, EGFR 52, LFTs normal. Visit of 12/30/2021: She is seen in follow-up. Recently and after treatment with iron for her anemia her hemoglobin stabilized. Recently her hemoglobin was 12. She continues to have symptoms of angina on mild exertion similar to before. No lower extremity swelling. Blood testing 08/16/2021: Cr 1.18, BUN 24, K 4.2. Blood testing 12/17/2021: Hemoglobin 12, platelets 208. Visit of 03/31/2022: She is seen in follow-up. At last visit I referred her for cardiac rehab. I also added amlodipine 10 mg daily for blood pressure control and to control possible angina. She did complain of lower extremity swelling and she was given furosemide. in February 2022 she was admitted to t (more content not included)... [facility] 01-21-2023 Evaluation + Plan note Extrac evie from: Title:L5/S1 interlaminar epi dural steroid injection under fluoroscopy Author:Prudencio Payan DO. Date:01/21/23 L5/S1 interlaminar epidural steroid injection under fluoroscopic guidance for M54.18 And M48.062. After informed consent was obtained, the patient was brought to the procedure suite and placed in the prone position. Pulse oximetry and blood pressure were monitored throughout. Low back areas prepped and draped in the usual sterile fashion. Using fluoroscopic guidance, the skin and subcutaneous tissue overlying the needle trajectory were anesthetized with 2% lidocaine. An 18-gauge Touhy needle was inserted and directed by fluoroscopy. Entry into the epidural space was confirmed using the [id number] technique and 2 cc of air. Injection of contrast revealed appropriate spread without vascular uptake. 4 mL of normal saline plus 40 mg of methylprednisolone was then injected. The needle was removed and the patient was then transferred to the cover room in stable condition. The patient tolerated the procedure well. There were no apparent complications. Follow-up: The patient will update us on the response to this procedure, and agrees to continue currently prescribed/recommended therapies. Future Appointments Appointment Date:02/12/2023 12:30:00 PM Scheduled Provider:Prudencio Payan DO Location:.[facility] Appointment Type:Pain Management - Follow Up (FT) [facility]09-13-2023 Note [id number]:[email or web address] 12-26-2022 Evaluation + Plan noteExtracted from: Title:Pain Managment Follow up Author:Indiana Howard Date:12/26/22 Impression and Plan Patient is a 72-year-old female. She has a past medical history significant for previous cervical fusion, adjacent level stenosis, neck pain, cervical neuritis, lumbar stenosis and lumbar neuritis. She is still considering her surgical options with Dr. Rodriguez. She just is not sure. She is going to continue to think about this and I once again answered questions to the best of my ability that she had She is once again noticing lower back pain with bilateral buttock pain. Same as before. Previous L5-S1 epidural steroid injectiondone on 04/30/2022 and gave her 50% relief. Her pain unfortunately is beginning to return. Based on her pain pattern, her imaging findings, the return of the same pain that she had before and the significant response that she got from the previous injection I discussed with patient repeating the L5-S1 epidural steroid injection under fluoroscopy once again for both diagnostic and therapeutic purposes. Procedure was discussed. Risk and benefits were discussed. Patient is agreeable. She will follow-up 3 weeks after the injection for reevaluation. Call clinic sooner if necessary. In the meantime, she intermittently uses Delta 5/325 twice daily as needed pain. She tolerates this well. She is requesting a refill today. OARRS was reviewed. Most recent UDS was reviewed. We will obtain an updated UDS today for compliance purposes. A refill be sent to her pharmacy. She will follow-up as above mentioned LILIANE score: 47% [facility]03-29-2023 History of Present illness Narrative* Christ Rodriguez MD - 08/06/2022 3:49 AM EDT Images from the original note were not included. 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 She feels like her hands are getting worse L>>R PE: 5/5 throughout but decreased light touch ulnar side of L hand compared to R INV: Flex-ex cervical 02jun2022 shows 4mm subluxation C2-3 MRI cervical 12jun2022 C7-T1 spondy with mild cord compression IMP: 72yo female s/p posterior cervical decompression and fusion with symptomatic ASD at C7-T1 and instability at C2-3 PLAN: I offered the patient revision surgery today. She understands adjacent segment issues with instability likely will not get better. I gave her the Risks of Cervical Surgery Form, the Generalities, Expectations and Home Instructions Form and names of surgeons in the area that I trust. She can call the office and schedule surgery or follow up every 4-6 months. * Charline Velazquez RN - 08/05/2022 11:35 AM EDT Patient was identified by name and date of . Charline Velazquez RN Patient at risk for falls:Yes Falls Risk protocol implemented: Yes Ambulates with cane Charline Velazquez RN documented in this [id number] Evaluation + Plan note Extracted from: Title:Pain Managment Follow up Author:Indiana Howard Date:07/04/22 Patient: DIANN LINDER Age: 72 years Sex: Female : 1950 Associated Diagnoses: None Author: Indiana Walsh PA-C Subjective Chief complaint 07/04/2022 14:40 EST neck and low back pain . Patient is a 72-year-old female. She has a past medical history significant for previous cervical fusion, adjacent level stenosis, neck pain, cervical neuritis, lumbar stenosis and lumbar neuritis. She has neck pain, arm pain, numbness, tingling, weakness, balance issues, difficulty with handwriting, and she is noticing just overall fatigue. She had a recent lumbar MRI as well as a cervical MRI. She rates her discomfort a 3/10. She underwent previous L5-S1 epidural steroid injection. This was done on 04/30/2022 and gave her 50% relief. She intermittently uses Delta 5/325 twice daily as needed pain. She can only walk around the grocery store if she has a cart. Previous physical therapy did not help. Previous injection did give some relief but not quite enough. She did see Dr. Christ Rodriguez. He had ordered the MRI of the cervical spine. Unfortunate, she does not want to travel all the way to [facility] to see him. She wonders if there is somebody locally she can see if it is needed. Health Status Allergies: Allergic Reactions (Selected) Severity Not Documented Amoxicillin- Hives., Allergies (1) ActiveReaction amoxicillinHives Current medications: (Selected) Prescriptions Prescribed Levsin 0.125 mg SL Tab: 0.125 mg = 1 tab(s), Oral, QID, PRN Spasm, # 20 tab(s), Refills(s) 0, Pharmacy: [facility]/pharmacy #[id number], 158, cm, 10/31/21 16:20:00 EDT, Height/Length Dosing, 97.9, kg, 10/31/21 16:20:00 EDT, Weight Dosing Delta 325 mg-5 mg oral tablet: 1 tab(s), Oral, BID as needed for pain, 60 tab(s), Refill(s) 0, [facility]/pharmacy #[id number], 158, cm, 06/02/22 12:59:00 EST, Height/Length Dosing, 101.6, kg, 03/27/22 15:44:00 EST, Weight Dosing Delta 325 mg-5 mg oral tablet: 1 tab(s), Oral, BID as needed for pain, 60 tab(s), Refill(s) 0, [facility]/pharmacy #[id number], 158, cm, 09/18/21 13:15:00 EDT, Height/Length Dosing, 95.2, kg, 05/31/21 12:51:00 EST, Weight Dosing Delta 325 mg-5 mg oral tablet: 1 tab(s), Oral, BID as needed for pain, 60 tab(s), Refill(s) 0, [id number], 158, cm, 07/04/22 14:50:00 EST, Height/Length Dosing, 99, kg, 07/04/22 14:50:00 EST, Weight Dosing gabapentin 300 mg Cap: See Instructions, 1 cap(s) Oral Qam 2 caps QHS, # 270 cap(s), Refills(s) 0, Pharmacy: [facility], 158, cm, 05/31/21 12:51:00 EST, Height/Length Dosing, 95.2, kg, 05/31/21 12:51:00 EST, Weight Dosing gabapentin 300 mg Cap: See Instructions, one cap in AM, 2 caps at bedtime., # 270 cap(s), Refills(s) 0, Pharmacy: [facility], 158, cm, 04/30/22 8:13:00 EST, Height/Length Dosing, 101.6, kg, 03/27/22 15:44:00 EST, Weight Dosing Documented Medications Documented Alphagan P: 1 drop, Eye-Both, Bedtime, Refill(s) 0, Other (see comment) Fosamax 70 mg oral tablet: 70 mg = 1 tab(s), Oral, qWeek, Thursday, Refills(s) 0, Other (see comment) Glucosamine Chondroitin oral capsule: 1 cap, Oral, BID, Prophylaxis High Potency Probiotic oral capsule: 1 cap, Oral, Daily, Prophylaxis Klor-Con 10: 1 tab, Oral, BID, Refills(s) 0 Synthroid: 100 mcg, Oral, Daily, Refills(s) 0, Thyroid Vitamin B12 Methylcobalamin 5000 mcg sublingual tablet: 5,000 mcg, SubLingual, Daily, Prophylaxis Xalatan 0.005% Soln-Opth: 1 drop(s), Eye-Both, qAM, 2.5 mL, Refill(s) 0, glaucoma, Other (see comment) aspirin 81 mg Oral EC Tab: 81 mg = 1 tab(s), Oral, Daily, Refills(s) 0, Blood Thinner biotin: = 1 tab(s), Oral, BID, Refills(s) 0, Prophylaxis bisoprolol 10 mg Tab: 10 mg = 1 tab(s), Oral, Daily, High blood pressure calcium-vitamin D extended release: 2 tab(s), Oral, qAM, Prophylaxis doxepin 10 mg Cap: 10 mg = 1 cap(s), Oral, Daily, Depression isosorbide mononitrate 120 mg ER Tab: 120 mg = 1 tab(s), Oral, qAM, Refills(s) 0, High blood pressure omeprazole: 20 mg, Oral, Daily, Control of stomach acid ranolazine 1000 mg oral tablet, extended release: 1,000 mg = 1 tab(s), Oral, BID, TAKE 1 TABLET BY MOUTH TWO TIMES A DAY sertraline: 50 mg, Oral, Daily, Depression tiZANidine 4 mg Tab: 8 mg = 2 tab(s), Oral, Bedtime, Refills(s) 0, Insomnia Problem list: All Problems Chronic back pain / SNOMED CT 935159332 / Confirmed Osteoarthritis / SNOMED CT 3308486256 / Confirmed Hematuria / SNOMED CT 282982128 / Confirmed Anemia / SNOMED CT 438094764 / Confirmed HTN (hypertension) / SNOMED CT 6482441281 / Confirmed Glaucoma / SNOMED CT 72191745 / Confirmed Hypothyroid / SNOMED CT 41155117 / Confirmed C. difficile diarrhea / SNOMED CT 1369405221 / Confirmed Anemia / SNOMED CT 166057880 / Confirmed Arthritis / SNOMED CT 2553357 / Confirmed Heart disease / SNOMED CT 27322369 / Confirmed Hypertension / SNOMED CT 0040546100 / Confirmed Hyperlipidemia / SNOMED CT 04516830 / Confirmed Sleep apnea / SNOMED CT 914931051 / Confirmed Long-term current use of opiate analgesic drug / SNOMED CT 949121191108237 / Confirmed Added secondary to current Opioid Treatment Agreement Kidney stones / SNOMED CT 551072577 / Confirmed Renal mass / SNOMED CT 238134149 / Confirmed Abnormal kidney function / SNOMED CT 36352308 / Confirmed H/O hematuria / SNOMED CT 4981885353 / Confirmed Resolved: At risk for falls / SNOMED CT 411663915 Problem added when Risk for Falls Careplan was initiated. Resolved due to patient discharge. Resolved: At risk for falls / SNOMED CT 430903900 Problem added when Risk for Falls Careplan was initiated. Resolved due to patient discharge. Resolved: Arthritis / SNOMED CT 7788325 Resolved: Anxiety / SNOMED CT 44869052 Resolved: Trigeminal neuralgia of left side of face / SNOMED CT 51477176 Resolved: Osteopenia / SNOMED CT 687476005 Resolved: Hypotension / SNOMED CT 11521468 Resolved: Thyroid cancer / SNOMED CT 4489090457 Resolved: Carpal tunnel / SNOMED CT 360150406 Resolved: Thyroid cancer / SNOMED CT 029495217 Resolved: Liver disease / SNOMED CT 313993128 Resolved: Microscopic hematuria / SNOMED CT 702003180 Canceled: At risk for falls / SNOMED CT 771444319 Problem added when Risk for Falls Careplan was initiated. Resolved due to patient discharge. Canceled: Impaired skin integrity / SNOMED CT 42834143 Problem added on documentation of skin impairments. Resolved due to patient discharge. Canceled: Thyroid nodule / SNOMED CT 015675721 Canceled: At risk for falls / SNOMED CT 706172472 Problem added when Risk for Falls Careplan was initiated. Canceled: Depression / SNOMED CT 99557622 Canceled: Smoker / IMO [id number] Added secondary to documentation in Social History. Canceled: Smoker / SNOMED CT 83927824 Added secondary to documentation in Social History. Canceled: Cancer, uterine / SNOMED CT 3862989261 Canceled: Hematoma / SNOMED CT 6133966254 Objective Vital Signs 07/04/2022 14:40 EST Peripheral Pulse Rate 61 bpm Respiratory Rate 18 br/min Systolic Blood Pressure 146 mmHg HI Diastolic Blood Pressure 87 mmHg Mean Arterial Pressure, Cuff 107 mmHg General: Alert and oriented, No acute distress. Overweight Eye: Normal conjunctiva. HENT: Normocephalic, Normal hearing. Cardiovascular: No edema. Musculoskeletal Normal range of motion. Normal strength. Other than bilateral deltoid and MP extension 4/5 Slightly positive Pema's on the right Negative on the left Integumentary: Warm, Dry, Clyman. Neurologic: Alert, Oriented. Psychiatric: Cooperative, Appropriate mood & affect. Results Review * Final Report * Reason For Exam M54.12 M48.062 M 54.16 POWERSCRIBE REPORT IMPRESSION: PROGRESSIVE DEGENERATIVE CHANGES C2-C3 AND C7-T1 SINCE 04/28/2019 WITH INTERVAL C3-C7 POSTERIOR FUSION/LAMINECTOMY, RESULTING IN CENTRAL SPINAL STENOSIS AND NEURAL FORAMINAL NARROWING DESCRIBED. EXAM: MRI Spine Cervical w/o Contrast DATE: 06/12/2022 CLINICAL HISTORY: M54.12 M48.062 M 54.16. COMPARISON: Cervical spine radiographs 06/02/2022 and cervical spine MRI 04/26/2019. TECHNIQUE: Multiplanar MR imaging of the cervical spine was performed. FINDINGS: The spine is visualized from the craniovertebral junction through the T3-T4 level on the diagnostic sagittal sequences. Increasing moderate degenerative changes at the C2-C3 level are present, with approximately 5 mm of anterolisthesis, which results in moderate central spinal stenosis and right neural foraminal narrowing. Increasing moderate degenerative changes at the C7-T1 level are present with approximately 4 mm of anterolisthesis and a moderate-sized central disc protrusion, which results in moderate central spinal stenosis and moderate to marked neural foraminal narrowing, greater on the left Postoperative changes from previous C3-C7 posterior fusion/laminectomy are otherwise unremarkable. The visualized upper thoracic levels are unremarkable. The visualized spinal cord is normal in signal and caliber. Signature Line FINAL REPORT Dictated: 06/15/2022 11:21 am Santos Trejo MD Signed (Electronic Signature): 06/15/2022 11:21 am Signed by: Santos Trejo MD Transcribed by: JACKIE Technologist: JAEL Technical Comments None RAD REPORT This document has an image Result type:MRI Spine Cervical w/o Contrast Result date:June 12, 2022 18:01 EST Result status:Auth (Verified) Result title:MRI Spine Cervical w/o Contrast Performed by:Santos Trejo MD on June 15, 2022 11:21 EST Verified by:Santos Trejo MD on June 15, 2022 11:21 EST Encounter info:[id number], [facility], 06/12/2022 - 06/12/2022 * Final Report * Reason For Exam m54.2 POWERSCRIBE REPORT IMPRESSION: REMOTE INTERNAL FIXATION C3-C7 DISCUSSED. 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 NO ANTEROLISTHESIS IDENTIFIED ON EXTENSION. CLINICAL HISTORY: m54.2 COMPARISON: NONE. FINDINGS: 2 views. Internal fixation C3-C7 with posteriorly placed screws at the C3, C4, C5, and C7 levels. Screws secured to bilateral vertically oriented rods and a horizontal bracket. On flexion, a 4.6 anterolisthesis of C2 on C3 is identified. No anterolisthesis is visualized on extension imaging. Diffuse disc space narrowing C2-3 through C7- T1. No acute fracture. Signature Line FINAL REPORT Dictated: 06/03/2022 10:34 am Hamzah Whaley MD Signed (Electronic Signature): 06/03/2022 10:34 am Signed by: Hamzah Whaley MD Transcribed by: JACKIE Technologist: NEVA RAD REPORT This document has an image Result type:XR Spine Cervical 2 or 3 Views Result date:June 02, 2022 13:51 EST Result status:Auth (Verified) Result title:XR Spine Cervical 2 or 3 Views Performed by:Hamzah Whaley MD on June 03, 2022 10:34 EST Verified by:Hamzah Whaley MD on June 03, 2022 10:34 EST Encounter info:[id number], [facility], Outpatient, 06/02/2022 - 06/02/2022 * Final Report * Reason For Exam M54.12 M48.062 M 54.16 POWERSCRIBE REPORT IMPRESSION: MILD ROTARY LEVOSCOLIOSIS AND ADVANCED LUMBAR SPONDYLOSIS, WHICH HAS MINIMALLY PROGRESSED FROM 03/16/2020, DESCRIBED IN DETAIL. EXAM: MRI Spine Lumbar w/o Contrast DATE: 06/12/2022 CLINICAL HISTORY: M54.12 M48.062 M 54.16. COMPARISON: Lumbar spine radiographs 04/01/2022 and lumbar spine MRI 03/16/2020. TECHNIQUE: Multiplanar MR imaging of the lumbar spine was performed without contrast. FINDINGS: The spine is visualized from the T11-T12 through the S3 levels on the diagnostic sagittal sequences. Mild rotary levoscoliosis and advanced degenerative disc disease and hypertrophic facet changes throughout the lumbar spine Minimally progressed from 03/16/2020, with approximately 3 to 4 mm of anterolisthesis of L4 over L5 again noted. There is no compression, fracture, or other significant subluxation. The visualized lower spinal cord and conus medullaris and paraspinal soft tissues are unremarkable. The T11-T12 and T12-L1 levels are unremarkable. At the L1-L2 level, there is mild disc space narrowing, mild to moderate diffuse disc bulging with mild posterolateral endplate osteophytosis and hypertrophic facet changes, without central spinal stenosis, significant neural foraminal narrowing, or a discrete disc protrusion. At the L2-L3 level, there is moderate to marked disc space narrowing, moderate posterolateral endplate osteophytosis with associated broad-based disc protrusion, and mild to moderate hypertrophic facet and ligamentum flavum changes, which results in mild central spinal stenosis and moderate right neural foraminal narrowing. There is no significant left neural foraminal narrowing or disc extrusion. At the L3-L4 level, there is moderate disc space narrowing, moderate diffuse disc bulging, and mild to moderate ligamentum flavum changes, without central spinal stenosis, significant neural foraminal narrowing, or discrete disc protrusion. At the L4-L5 level, there is mild disc space narrowing, mild to moderate diffuse disc bulging and moderate hypertrophic facet and ligamentum flavum changes, which results in mild neural foraminal narrowing, greater on the left. There is no central spinal stenosis or discrete disc protrusion. At the L5-S1 level, there is moderate to marked disc space narrowing, moderate posterolateral endplate osteophytosis with associated broad-based disc protrusion, and moderate hypertrophic facet and ligamentum flavum changes, which results in mild to moderate neural foraminal narrowing, worse on the left. There is no central spinal stenosis or discrete disc protrusion. Signature Line FINAL REPORT Dictated: 06/15/2022 11:33 am Santos Trejo MD Signed (Electronic Signature): 06/15/2022 11:33 am Signed by: Santos Trejo MD Transcribed by: JACKIE Technologist: JAEL Technical Comments None RAD REPORT This document has an image Result type:MRI Spine Lumbar w/o Contrast Result date:June 12, 2022 18:04 EST Result status:Auth (Verified) Result title:MRI Spine Lumbar w/o Contrast Performed by:Santos Trejo MD on June 15, 2022 11:33 EST Verified by:Santos Trejo MD on June 15, 2022 11:33 EST Encounter info:[id number], [facility], Outpatient, 06/12/2022 - 06/12/2022 Impression and Plan Patient is a 72-year-old female with a past medical history seen for previous cervical fusion, adjacent level cervical stenosis, cervical neuritis, cervical listhesis, lower back pain and elbow pain. We reviewed the lumbar MRI scan. We reviewed the cervical MRI scan. We discussed different options. We discussed her symptoms. I would like her to be evaluated by a spine surgeon to discuss her options. She does not want to travel all the way to [facility] to see Dr. Rodriguez. She would like a local referral. We will facilitate this to Dr. Arthur Robison per patient's request. She states that she has had friends who have seen him. In regards to her pain she continues to use Delta 5/325 twice daily as needed pain. She is requesting a refill. This will be sent to her pharmacy. OARRS was reviewed and is appropriate. Narcan was offered and declined. An updated UDS will be obtained for compliance purposes At this time she is going to see Dr. Arthur Robison and she will follow-up after. Call the clinic sooner if necessary. LILIANE score: 33 Addendum by Josue SOMMERS, Lamar hernandez on July 04, 2022 19:27 EST I agree with the PA assessment and plan. I was available for consultation. [facility]02-01-2023 NoteHOSPITAL REGULATIONS: All Positive and Important Negative Findings Shall Be Recorded Date of Consultation: 06/10/2022 Attending Physician: Sanaz Lake M.D. Consulting Physician: Christ Rodriguez M.D. DIAGNOSIS:Status post posterior cervical decompression and fusion 28 June 2019. LAST VISIT: 02 June 2022 by Indiana Walsh PA-C. Ms. Linder comes in today. She fell at home about 3 months ago. She states she busted her nose and since that time she has had neck pain. Dr. Salas appropriately did a flexion extension view of her cervical spine and she has Grade II spondylosis at C2-3 above her previous 3-7 fusion. She comes in today and she has a magnetic resonance imaging scheduled in two days. She also has significant low back pain when she is standing or walking for too long. It gets better when she gets off her feet. PHYSICAL EXAMINATION: She remains at her neurologic baseline from even before the surgery. She has not had significant improvement in her upper extremity function, mostly decreased light touch bilateral upper extremities.Otherwise she is neurologically intact, 5/5 throughout. She does have apprehension with flexion of her neck. INVESTIGATIONS: No new but we reviewed the flexion extension views of her cervical spine performed 02 June 2022. With extension she has reduction of C2 on C3 but with flexion she has maybe almost a Grade II spondylosis of C2 on C3. IMPRESSION:72 year old female status post posterior cervical decompression and fusion with C2-3 instability. PLAN:I told her we got to get the magnetic resonance imaging of her cervical spine. I am concerned if she has significant pannus or significant disc or degeneration there. We will follow up with her after the magnetic resonance imaging of her cervical spine is complete. I talked to her extensively about I am not going to be at [facility] in terms of revision posterior cervical surgery but I would be happy to take of care of her at [facility]. Will follow up with her after the magnetic resonance imaging. Christ Rodriguez M.D. lr Dictated: 06/10/2022 [id number] Transcribed: 06/10/2022 cc:Sanaz Lake M.D.TrihealthComment on above:Result Comment: Electronically Signed By: Emigdio SOMMERS, Christ Nugent\.br\Date and Time Signed: 06/11/22 10:17 [id number] Evaluation + Plan noteExtracted from: Title:Pain Managment Follow up Author:Indiana Howard Date:06/02/22 Impression and Plan Patient is a 72-year-old female with a past medical history significant for previous cervical fusion, neck pain, cervical neuritis, lumbar stenosis and lumbar neuritis. Recent L5-S1 epidural steroid injection gave 50% relief. Unfortunate, nothing more significant than that. She is still very discouraged by this and states that she cannot do very much walking because of the pain and weakness. I recommended obtaining updated lumbar MRI scan for possible other injection options versus surgical consultation depend on the results. Patient is agreeable. In regards to her neck and shoulder symptoms we reviewed her x-ray. Unfortunate, flexion and extension x-rays were not done. We will obtain these. I also discussed with patient obtaining a cervical MRI for other future injection options versus surgical consultation depend on the results. Patient is agreeable. In regards to her pain medication she uses Delta twice daily as needed pain and tolerates this well. It does somewhat help. Not quite enough but it does help her. She is requesting a refill. OARRS was reviewed. A refill will be sent to the pharmacy. Previous UDS was reviewed and is appropriate. Narcan was offered and declined. Follow-up after the above-mentioned imaging for discussion of different options. Future Appointments Appointment Date:07/04/2022 02:30:00 PM Scheduled Provider:Indiana Walsh PA-C Location:.[facility] [place] Appointment Type:Pain Management - Follow Up (FT) [facility]09-07-2022 Hospital Discharge instructions Patient Education 01/15/2022 09:03:01 Percutaneous Nephrolithotomy, Care After Percutaneous Nephrolithotomy, Care After This sheet gives you information about how to care for yourself after your procedure. Your health care provider may also give you more specific instructions. If you have problems or questions, contact your health care provider. What can I expect after the procedure? After the procedure, it is common to have: Soreness or pain. A small amount of blood or clear fluid coming from your incision for a few days. Fatigue. Some blood in your urine. This will last for a few days. Follow these instructions at home: Medicines Take ilvv-vkt-llurjte and prescription medicines only as told by your health care provider. If you were prescribed an antibiotic medicine, take it as told by your health care provider. Do notstop using the antibiotic even if you start to feel better. Ask your health care provider if the medicine prescribed to you: ?Requires you to avoid driving or using heavy machinery. ?Can cause constipation. You may need to take these actions to prevent or treat constipation: ?Drink enough fluid to keep your urine pale yellow. ?Take ezmb-nfg-txyyqsa or prescription medicines. ?Eat foods that are high in fiber, such as beans, whole grains, and fresh fruits and vegetables. ?Limit foods that are high in fat and processed sugars, such as fried or sweet foods. Incision care Follow instructions from your health care provider about how to take care of your incision. Make sure you: ?Wash your hands with soap and water before and after you change your bandage (dressing). If soap and water are not available, use hand pit furnace operator. ?Change your dressing as told by your health care provider. ?Leave stitches (sutures), skin glue, or adhesive strips in place. These skin closures may need to stay in place for 2 weeks or longer. If adhesive strip edges start to loosen and curl up, you may trim the loose edges. Do not remove adhesive strips completely unless your health care provider tells you to do that. Check your incision area every day for signs of infection. Check for: ?Redness, swelling, or pain. ?More fluid or blood. ?Warmth. ?Pus or a bad smell. Do not take baths, swim, or use a hot tub until your health care provider approves. Ask your healthcare provider if you may take showers. You may only be allowed to take sponge baths. Activity Avoid strenuous activities for as long as told by your health care provider. Return to your normal activities as told by your health care provider. Ask your health care provider what activities are safe for you. General instructions If you were sent home with a catheter or surgical drain (nephrostomy tube), follow your health careprovider's instructions on how to take care of it. Wear compression stockings as told by your health care provider. These stockings help to prevent blood clots and reduce swelling in your legs. Do not use any products that contain nicotine or tobacco, such as cigarettes, e- cigarettes, and chewing tobacco. These can delay incision healing after surgery. If you need help quitting, ask your health care provider. Keep all follow-up visits as told by your health care provider. This is important. ?If you still have a stent, your health care provider will need to remove it after 1 2 weeks. Contact a health care provider if: You have a fever. You have redness, swelling, or pain around your incision. You have more fluid or blood coming from your incision. Your incision feels warm to the touch. You have pus or a bad smell coming from your incision. You lose your appetite. You feel nauseous or you vomit. You have been sent home with a urinary catheter or a surgical drain and urine flow suddenly stops, followed by kidney pain. Get help right away if: You notice a large amount of blood in your urine. You have blood clots in your urine. You cannot urinate. You have chest pain or trouble breathing. Summary After the procedure, it is common to feel soreness and discomfort. You may also see blood in your urine. You will be told how to care for yourself after the procedure. Follow instructions on how to care for your incision and how to recognize signs of infection. Avoid activities that require great effort. Return to activities as told by your health care provider. Get help right away if you have blood clots in your urine, you cannot urinate, or you have trouble breathing. This information is not intended to replace advice given to you by your health care provider. Make sure you discuss any questions you have with your health care provider. Document Released: 05/23/2016 Document Revised: 11/17/2018 Document Reviewed: 11/17/2018 NPS Patient Education 2020 [employer]. 01/15/2022 09:02:57 Kidney Stones, Dbbi-wd-Wkjx Kidney Stones Kidney stones are rock-like masses that form inside of the kidneys. Kidneys are organs that make pee (urine). A kidney stone may move into other parts of the urinary tract, including: The tubes that connect the kidneys to the bladder (ureters). The bladder. The tube that carries urine out of the body (urethra). Kidney stones can cause very bad pain and can block the flow of pee. The stone usually leaves your body (passes) through your pee. You may need to have a doctor take out the stone. What are the causes? Kidney stones may be caused by: A condition in which certain glands make too much parathyroid hormone (primary hyperparathyroidism). A buildup of a type of crystals in the bladder made of a chemical called uric acid. The body makes uric acid when you eat certain foods. Narrowing (stricture) of one or both of the ureters. A kidney blockage that you were born with. Past surgery on the kidney or the ureters, such as gastric bypass surgery. What increases the risk? You are more likely to develop this condition if: You have had a kidney stone in the past. You have a family history of kidney stones. You do not drink enough water. You eat a diet that is high in protein, salt (sodium), or sugar. You are overweight or very overweight (obese). What are the signs or symptoms? Symptoms of a kidney stone may include: Pain in the side of the belly, right below the ribs (flank pain). Pain usually spreads (radiates) to the groin. Needing to pee often or right away (urgently). Pain when going pee (urinating). Blood in your pee (hematuria). Feeling like you may vomit (nauseous). Vomiting. Fever and chills. How is this treated? Treatment depends on the size, location, and makeup of the kidney stones. The stones will often pass out of the body through peeing. You may need to: Drink more fluid to help pass the stone. In some cases, you may be given fluids through an IV tube put into one of your veins at the hospital. Take medicine for pain. Make changes in your diet to help keep kidney stones from coming back. Sometimes, medical procedures are needed to remove a kidney stone. This may involve: A procedure to break up kidney stones using a beam of light (laser) or shock waves. Surgery to remove the kidney stones. Follow these instructions at home: Medicines Take xfho-nvc-adcrglj and prescription medicines only as told by your doctor. Ask your doctor if the medicine prescribed to you requires you to avoid driving or using heavy machinery. Eating and drinking Drink enough fluid to keep your pee pale yellow. You may be told to drink at least 8 10 glasses of water each day. This will help you pass the stone. If told by your doctor, change your diet. This may include: ?Limiting how much salt you eat. ?Eating more fruits and vegetables. ?Limiting how much meat, poultry, fish, and eggs you eat. Follow instructions from your doctor about eating or drinking restrictions. General instructions Collect pee samples as told by your doctor. You may need to collect a pee sample: ?24 hours after a stone comes out. ?8 12 weeks after a stone comes out, and every 6 12 months after that. Strain your pee every time you pee (urinate), for as long as told. Use the strainer that your doctor recommends. Do not throw out the stone. Keep it so that it can be tested by your doctor. Keep all follow-up visits as told by your doctor. This is important. You may need follow-up tests. How is this prevented? To prevent another kidney stone: Drink enough fluid to keep your pee pale yellow. This is the best way to prevent kidney stones. Eat healthy foods. Avoid certain foods as told by your doctor. You may be told to eat less protein. Stay at a healthy weight. Where to find more information National Kidney Foundation (NKF): www.kidney.org [facility] (UCF): www.urologyhealth.org Contact a doctor if: You have pain that gets worse or does not get better with medicine. Get help right away if: You have a fever or chills. You get very bad pain. You get new pain in your belly (abdomen). You pass out (faint). You cannot pee. Summary Kidney stones are rock-like masses that form inside of the kidneys. Kidney stones can cause very bad pain and can block the flow of pee. The stones will often pass out of the body through peeing. Drink enough fluid to keep your pee pale yellow. This information is not intended to replace advice given to you by your health care provider. Make sure you discuss any questions you have with your health care provider. Document Released: 10/13/2008 Document Revised: 09/13/2019 Document Reviewed: 09/13/2019 NPS Patient Education 2020 [employer]. Follow Up Care 01/14/2022 14:11:45 With:Franc SOMMERS, SAIMA Willis, [facility] Address: When: Unknown [facility] 08-31-2022 Hospital Discharge instructions Patient Education 01/08/2022 15:01:38 Kidney Stones, Hatm-tb-Unqo Kidney Stones Kidney stones are rock-like masses that form inside of the kidneys. Kidneys are organs that make pee (urine). A kidney stone may move into other parts of the urinary tract, including: The tubes that connect the kidneys to the bladder (ureters). The bladder. The tube that carries urine out of the body (urethra). Kidney stones can cause very bad pain and can block the flow of pee. The stone usually leaves your body (passes) through your pee. You may need to have a doctor take out the stone. What are the causes? Kidney stones may be caused by: A condition in which certain glands make too much parathyroid hormone (primary hyperparathyroidism). A buildup of a type of crystals in the bladder made of a chemical called uric acid. The body makes uric acid when you eat certain foods. Narrowing (stricture) of one or both of the ureters. A kidney blockage that you were born with. Past surgery on the kidney or the ureters, such as gastric bypass surgery. What increases the risk? You are more likely to develop this condition if: You have had a kidney stone in the past. You have a family history of kidney stones. You do not drink enough water. You eat a diet that is high in protein, salt (sodium), or sugar. You are overweight or very overweight (obese). What are the signs or symptoms? Symptoms of a kidney stone may include: Pain in the side of the belly, right below the ribs (flank pain). Pain usually spreads (radiates) to the groin. Needing to pee often or right away (urgently). Pain when going pee (urinating). Blood in your pee (hematuria). Feeling like you may vomit (nauseous). Vomiting. Fever and chills. How is this treated? Treatment depends on the size, location, and makeup of the kidney stones. The stones will often pass out of the body through peeing. You may need to: Drink more fluid to help pass the stone. In some cases, you may be given fluids through an IV tube put into one of your veins at the hospital. Take medicine for pain. Make changes in your diet to help keep kidney stones from coming back. Sometimes, medical procedures are needed to remove a kidney stone. This may involve: A procedure to break up kidney stones using a beam of light (laser) or shock waves. Surgery to remove the kidney stones. Follow these instructions at home: Medicines Take jzuk-gdu-bjpeqbe and prescription medicines only as told by your doctor. Ask your doctor if the medicine prescribed to you requires you to avoid driving or using heavy machinery. Eating and drinking Drink enough fluid to keep your pee pale yellow. You may be told to drink at least 8 10 glasses of water each day. This will help you pass the stone. If told by your doctor, change your diet. This may include: ?Limiting how much salt you eat. ?Eating more fruits and vegetables. ?Limiting how much meat, poultry, fish, and eggs you eat. Follow instructions from your doctor about eating or drinking restrictions. General instructions Collect pee samples as told by your doctor. You may need to collect a pee sample: ?24 hours after a stone comes out. ?8 12 weeks after a stone comes out, and every 6 12 months after that. Strain your pee every time you pee (urinate), for as long as told. Use the strainer that your doctor recommends. Do not throw out the stone. Keep it so that it can be tested by your doctor. Keep all follow-up visits as told by your doctor. This is important. You may need follow-up tests. How is this prevented? To prevent another kidney stone: Drink enough fluid to keep your pee pale yellow. This is the best way to prevent kidney stones. Eat healthy foods. Avoid certain foods as told by your doctor. You may be told to eat less protein. Stay at a healthy weight. Where to find more information National Kidney Foundation (NKF): www.kidney.org Urology Care Foundation (UCF): www.urologyhealth.org Contact a doctor if: You have pain that gets worse or does not get better with medicine. Get help right away if: You have a fever or chills. You get very bad pain. You get new pain in your belly (abdomen). You pass out (faint). You cannot pee. Summary Kidney stones are rock-like masses that form inside of the kidneys. Kidney stones can cause very bad pain and can block the flow of pee. The stones will often pass out of the body through peeing. Drink enough fluid to keep your pee pale yellow. This information is not intended to replace advice given to you by your health care provider. Make sure you discuss any questions you have with your health care provider. Document Released: 10/13/2008 Document Revised: 09/13/2019 Document Reviewed: 09/13/2019 NPS Patient Education 2020 [employer]. Follow Up Care 12/25/2021 13:11:33 With:XUAN STALLWORTH PA-C, URL Address: [address] [place] [address] When: Unknown [facility] 07-19-2022 Evaluation note* Encounter Date Diagnosis Assessment Notes Treatment Notes Treatment Clinical Notes Nov, Bronchitis (ICD-10 - J40) Take medications as directed. Rest and increase fluid intake. Take meds with food to prevent stomach upset. Use inhaler as needed for coughing spells and SOB. It is better to use inhaler a few times a day over the next 2-3 days. Follow up with primary care provider if symptoms do not improve with treatment plan, although it may take a few weeks for the cough to go away [facility] Other 06-30-2022 Hospital Discharge instructions Patient Education 11/07/2021 11:06:00 Post Op Patient Instructions - FT (Custom) (CUSTOM) 11/07/2021 11:06:00 Lithotripsy, Care After Lithotripsy, Care After This sheet gives you information about how to care for yourself after your procedure. Your health care provider may also give you more specific instructions. If you have problems or questions, contact your health care provider. What can I expect after the procedure? After the procedure, it is common to have: Some blood in your urine. This should only last for a few days. Soreness in your back, sides, or upper abdomen for a few days. Blotches or bruises on your back where the pressure wave entered the skin. Pain, discomfort, or nausea when pieces (fragments) of the kidney stone move through the tube that carries urine from the kidney to the bladder (ureter). Stone fragments may pass soon after the procedure, but they may continue to pass for up to 4 8 weeks. ?If you have severe pain or nausea, contact your health care provider. This may be caused by a large stone that was not broken up, and this may mean that you need more treatment. Some pain or discomfort during urination. Some pain or discomfort in the lower abdomen or (in men) at the base of the penis. Follow these instructions at home: Medicines Take oakx-cfi-jlhkhvg and prescription medicines only as told by your health care provider. If you were prescribed an antibiotic medicine, take it as told by your health care provider. Do notstop taking the antibiotic even if you start to feel better. Do not drive for 24 hours if you were given a medicine to help you relax (sedative). Do not drive or use heavy machinery while taking prescription pain medicine. Eating and drinking Drink enough water and fluids to keep your urine clear or pale yellow. This helps any remaining pieces of the stone to pass. It can also help prevent new stones from forming. Eat plenty of fresh fruits and vegetables. Follow instructions from your health care provider about eating and drinking restrictions. You may be instructed: ?To reduce how much salt (sodium) you eat or drink. Check ingredients and nutrition facts on packaged foods and beverages. ?To reduce how much meat you eat. Eat the recommended amount of calcium for your age and gender. Ask your health care provider how much calcium you should have. General instructions Get plenty of rest. Most people can resume normal activities 1 2 days after the procedure. Ask your health care provider what activities are safe for you. Your health care provider may direct you to lie in a certain position (postural drainage) and tap firmly (percuss) over your kidney area to help stone fragments pass. Follow instructions as told by your health care provider. If directed, strain all urine through the strainer that was provided by your health care provider. ?Keep all fragments for your health care provider to see. Any stones that are found may be sent to a medical lab for examination. The stone may be as small as a grain of salt. Keep all follow-up visits as told by your health care provider. This is important. Contact a health care provider if: You have pain that is severe or does not get better with medicine. You have nausea that is severe or does not go away. You have blood in your urine longer than your health care provider told you to expect. You have more blood in your urine. You have pain during urination that does not go away. You urinate more frequently than usual and this does not go away. You develop a rash or any other possible signs of an allergic reaction. Get help right away if: You have severe pain in your back, sides, or upper abdomen. You have severe pain while urinating. Your urine is very dark red. You have blood in your stool (feces). You cannot pass any urine at all. You feel a strong urge to urinate after emptying your bladder. You have a fever or chills. You develop shortness of breath, difficulty breathing, or chest pain. You have severe nausea that leads to persistent vomiting. You faint. Summary After this procedure, it is common to have some pain, discomfort, or nausea when pieces (fragments)of the kidney stone move through the tube that carries urine from the kidney to the bladder (ureter). If this pain or nausea is severe, however, you should contact your health care provider. Most people can resume normal activities 1 2 days after the procedure. Ask your health care provider what activities are safe for you. Drink enough water and fluids to keep your urine clear or pale yellow. This helps any remaining pieces of the stone to pass, and it can help prevent new stones from forming. If directed, strain your urine and keep all fragments for your health care provider to see. Fragments or stones may be as small as a grain of salt. Get help right away if you have severe pain in your back, sides, or upper abdomen or have severe pain while urinating. This information is not intended to replace advice given to you by your health care provider. Make sure you discuss any questions you have with your health care provider. Document Released: 05/16/2008 Document Revised: 08/08/2019 Document Reviewed: 03/18/2017 NPS Patient Education 2020 [employer] Follow Up Care 10/30/2021 10:04:42 With:Susie Guzmán Address: [facility] [address] , [place] [address]- Business (1) When:2 to 4 weeks Comments:Office follow-up with [facility] x-ray [facility]06-14-2022 Hospital Discharge instructions Patient Education 10/22/2021 12:00:24 Kidney Stones, Gdap-ul-Ufaq Kidney Stones Kidney stones are rock-like masses that form inside of the kidneys. Kidneys are organs that make pee (urine). A kidney stone may move into other parts of the urinary tract, including: The tubes that connect the kidneys to the bladder (ureters). The bladder. The tube that carries urine out of the body (urethra). Kidney stones can cause very bad pain and can block the flow of pee. The stone usually leaves your body (passes) through your pee. You may need to have a doctor take out the stone. What are the causes? Kidney stones may be caused by: A condition in which certain glands make too much parathyroid hormone (primary hyperparathyroidism). A buildup of a type of crystals in the bladder made of a chemical called uric acid. The body makes uric acid when you eat certain foods. Narrowing (stricture) of one or both of the ureters. A kidney blockage that you were born with. Past surgery on the kidney or the ureters, such as gastric bypass surgery. What increases the risk? You are more likely to develop this condition if: You have had a kidney stone in the past. You have a family history of kidney stones. You do not drink enough water. You eat a diet that is high in protein, salt (sodium), or sugar. You are overweight or very overweight (obese). What are the signs or symptoms? Symptoms of a kidney stone may include: Pain in the side of the belly, right below the ribs (flank pain). Pain usually spreads (radiates) to the groin. Needing to pee often or right away (urgently). Pain when going pee (urinating). Blood in your pee (hematuria). Feeling like you may vomit (nauseous). Vomiting. Fever and chills. How is this treated? Treatment depends on the size, location, and makeup of the kidney stones. The stones will often pass out of the body through peeing. You may need to: Drink more fluid to help pass the stone. In some cases, you may be given fluids through an IV tube put into one of your veins at the hospital. Take medicine for pain. Make changes in your diet to help keep kidney stones from coming back. Sometimes, medical procedures are needed to remove a kidney stone. This may involve: A procedure to break up kidney stones using a beam of light (laser) or shock waves. Surgery to remove the kidney stones. Follow these instructions at home: Medicines Take ratq-tpa-jtcruhp and prescription medicines only as told by your doctor. Ask your doctor if the medicine prescribed to you requires you to avoid driving or using heavy machinery. Eating and drinking Drink enough fluid to keep your pee pale yellow. You may be told to drink at least 8 10 glasses of water each day. This will help you pass the stone. If told by your doctor, change your diet. This may include: ?Limiting how much salt you eat. ?Eating more fruits and vegetables. ?Limiting how much meat, poultry, fish, and eggs you eat. Follow instructions from your doctor about eating or drinking restrictions. General instructions Collect pee samples as told by your doctor. You may need to collect a pee sample: ?24 hours after a stone comes out. ?8 12 weeks after a stone comes out, and every 6 12 months after that. Strain your pee every time you pee (urinate), for as long as told. Use the strainer that your doctor recommends. Do not throw out the stone. Keep it so that it can be tested by your doctor. Keep all follow-up visits as told by your doctor. This is important. You may need follow-up tests. How is this prevented? To prevent another kidney stone: Drink enough fluid to keep your pee pale yellow. This is the best way to prevent kidney stones. Eat healthy foods. Avoid certain foods as told by your doctor. You may be told to eat less protein. Stay at a healthy weight. Where to find more information National Kidney Foundation (NKF): www.kidney.org Urology Care Foundation (UCF): www.urologyhealth.org Contact a doctor if: You have pain that gets worse or does not get better with medicine. Get help right away if: You have a fever or chills. You get very bad pain. You get new pain in your belly (abdomen). You pass out (faint). You cannot pee. Summary Kidney stones are rock-like masses that form inside of the kidneys. Kidney stones can cause very bad pain and can block the flow of pee. The stones will often pass out of the body through peeing. Drink enough fluid to keep your pee pale yellow. This information is not intended to replace advice given to you by your health care provider. Make sure you discuss any questions you have with your health care provider. Document Released: 10/13/2008 Document Revised: 09/13/2019 Document Reviewed: 09/13/2019 NPS Patient Education 2019 [employer]. Follow Up Care 09/10/2021 11:16:40 With:Ramirez Russell MD, VANITA Santo Address: [facility] [address] , [place] [address]- When:Within 6 Month(s) Comments:w/ CT abdomen with [facility] 05-18-2022 Evaluation note* Encounter Date Diagnosis Assessment Notes Treatment Notes Treatment Clinical Notes September, Iron deficiency anemia due to chronic blood loss (ICD-10 - D50.0) Patient did have IV iron twice last month and is getting one this month proceed with egd with push. [employer] [facility] Other Evaluation + Plan note Future Appointments Appointment Date:10/23/2021 01:15:00 PM Scheduled Provider: Location:[facility] Appointment Type:Surgery FT Appointment Date:11/21/2021 03:30:00 PM Scheduled Provider:Chad Salas MD Location:[facility] [place] Appointment Type:Pain Management - Follow Up (FT) [facility] [place] evaluation + Plan note Future Appointments Appointment Date:11/21/2021 03:30:00 PM Scheduled Provider:Chad Salas MD Location:[facility] [place] Appointment Type:Pain Management - Follow Up (FT) [facility] Future Appointments Appointment Date:11/07/2021 10:00:00 AM Scheduled Provider: Location:[facility] Appointment Type:Surgery FT Appointment Date:11/21/2021 03:30:00 PM Scheduled Provider:Chad Salas MD Location:[facility] [place] Appointment Type:Pain Management - Follow Up (FT) Diagnostic Tests Pending * Urine Culture 10/31/21 [facility] Future Appointments Appointment Date:01/23/2022 01:00:00 PM Scheduled Provider:Chad Salas MD Location:[facility] [place] Appointment Type:Pain Management - Follow Up (FT) [facility] Future Appointments Appointment Date:03/27/2022 03:30:00 PM Scheduled Provider:Chad Salas MD Location:[facility] [place] Appointment Type:Pain Management - Follow Up (FT) [facility] Future Appointments Appointment Date:06/02/2022 12:45:00 PM Scheduled Provider:Indiana Walsh PA-C Location:[facility] [place] Appointment Type:Pain Management - Follow Up (FT) [facility] Future Appointments Appointment Date:07/04/2022 02:30:00 PM Scheduled Provider:Indiana Walsh PA-C Location:[facility] [place] Appointment Type:Pain Management - Follow Up (FT) [facility] Future Appointments Appointment Date:06/12/2022 12:00:00 PM Scheduled Provider: Location:FT.MRI Appointment Type:MRI Spine (FT) Appointment Date:07/04/2022 02:30:00 PM Scheduled Provider:Indiana Walsh PA-C Location:FT.[facility] Appointment Type:Pain Management - Follow Up (FT) Future Scheduled Tests Radiology* MRI Spine Cervical w/o Contrast 06/12/22 * MRI Spine Lumbar w/o Contrast 06/12/22 [facility] Information[facility] Other Evaluation note* Diagnosis Cervical spondylosis with myelopathy- [facility] Cervical spondylosis with myelopathy [facility] Diagnosis Cervical spondylosis with myelopathy- Primary [facility] information [facility] Work Phone: History general Narrative - Reported* Type Description Date Medical History Osteoarthritis of mu ltiple joints, unspecified osteoarthritis type Medical History Osteopenia of lower leg, unspeci fied laterality Medical History Benign hypertension Medical History Low back pain, unspe cified back pain laterality, unspecified chronicity, with sciatica presence unspecified Medical History ANEMIA Medical History PROTEINURIA Medical History CHRONIC KIDNEY DISEASE STAGE 2 Medical History HYPERTENSION Medical History ASCVD Medical History GLAUCOMA Medical History THYROID CANCER Medical History NUMBNESS AND PAIN IN BILATERAL H ANDS Medical History SACROILITIS Surgical History hysterectomy Surgical History cholecystectomy Surgical History appendectomy Surgical History wisdom teeth Surgical History colonoscopy Surgical History tubal ligation Surgical History THYROIDECTOMY 2019 Surgical History BILATERAL KNEE REPLACEMENTS 201 2019 Surgical History NECK SPINAL CORD COMPRESSION [facility] 2019 Hospitalization History see above Hospitalization History DIVERTICULOSIS [place] [facility] Other Hospital course Narrative No data available for this section [facility] Hospital Discharge instructions No data available for this section [facility] No data available for this section [facility] Summary Purpose Family History No Family History Records Found Relationship Condition Age at Onset Recorded Date/T cass Not Specified Congestive heart failure Unknown Malignant neoplasm of uterus Unknown Advance Directives No Advanced Directives Records FoundNo Advanced Directives Records FoundNo Advanced Directives Records FoundNo Advanced Directives Records FoundNo Advanced Directives Records FoundNo Advanced Directives Records FoundNo Advanced Directives Records FoundNo Advanced Directives Records FoundNo Advanced Directives Records Found Reason for Referral Specialty Diagnoses / Procedures Referred By Contac t Referred To Contact Radiology Diagnoses Cervical spondylosis with myelopathy Procedures MR NEURO IMAGE IMPORT(HERNAN) DOWNLOAD [employer] [place] [address] [facility] [address] [place] [address] Referral ID Status Reason Start Date Expiration Date Visits Re quested Visits Authorized [id number] Closed 07/30/2022 07/30/2023 1 1 Referred by: Franc SOMMERS, Savannah Stanley Additional Source Comments INFORMATION SOURCE (unrecogn ized section and content) DATE CREATED AUTHOR 07/31/[address] [facility] DATE CREATED AUTHOR AUTHOR'S ORGANIZ ATION 07/01/[address] [facility] DATE CREATED AUTHOR AUTHOR'S ORGANIZ ATION 11/13/[address] [facility] DATE CREATED AUTHOR AUTHOR'S ORGANIZ ATION 10/04/2021 [facility] dical Specialist DATE CREATED AUTHOR AUTHOR'S ORGANIZ ATION 08/21/2022 [facility] DATE CREATED AUTHOR AUTHOR'S ORGANIZ ATION 09/17/2022 [facility] DATE CREATED AUTHOR AUTHOR'S ORGANIZ ATION 01/10/2023 [facility] DATE CREATED AUTHOR AUTHOR'S ORGANIZ ATION 04/27/2023 [facility] DATE CREATED AUTHOR AUTHOR'S ORGANIZ ATION 04/30/[address] [facility] Care Team (unrecognized sect ion and content) Personnel Name: SANAZ LAKE MD Address: [address] [place] [id number] [place] Name: Xuan Mckeon Personnel Name: SANAZ LAKE MD Address: [address] [facility], [address] [place] Name: Xuan Mckeon Personnel Name: SANAZ LAKE MD Address: [address] [facility], [address] [place] Name: Xuan Mckeon Personnel Name: SANAZ LAKE MD Address: [address] [facility], [address] [place] Name: Xuan Mckeon Personnel Name: SANAZ LAKE MD Address: [address] [facility], [address] [place] Name: Xuan Mckeon Personnel Name: SANAZ LAKE MD Address: [address] [facility], [address] [place] Name: Xuan Mckeon Personnel Name: SANAZ LAKE MD Address: [address] [facility], [address] [place] Name: Xuan Mckeon Personnel Name: SANAZ LAKE MD Address: [address] [facility], [address] [place] Name: Xuan Mckeon Personnel Name: SANAZ LAKE MD Address: [address] [facility], [address] [place] Name: Xuan Mckeno Personnel Name: SANAZ LAKE MD Address: Address: [address] [facility], [address] [place] Name: Xuan Mckeon Personnel Name: SANAZ LAKE MD Address: Address: [address] [facility], [address] [place] Name: Xuan Mckeon Personnel Name: SANAZ LAKE MD Address: Address: [address] [facility], [address] [place] Name: Xuan Mckeon Personnel Name: SANAZ LAKE MD Address: Address: [address] [facility], [address] [place] Name: Xuan Mckeon Personnel Name: SANAZ LAKE MD Address: Address: [address] [place] Name: Xuan Mckeon Personnel Name: SANAZ LAKE MD Address: Address: [address] [place] [address] [place] Name: Xuan Mckeon Personnel Name: SANAZ LAKE MD Address: Address: [address] [place] [address] [place] Name: Xuan Mckeon Personnel Name: SANAZ LAKE MD Address: Address: [address] [place] [address] [place] Name: Xuan Mckeon Personnel Name: SANAZ LAKE MD Address: Address: [address] [place] [address] [place] Name: Xuan Mckeon Personnel Name: Amilcar Cordova MD Address: Address: [address] [place] [address] Name: Xuan Mckeon Personnel Name: Amilcar Cordova MD Address: Address: [address] [place] [address] Name: Xuan Mckeon Personnel Name: Amilcar Cordova MD Address: Address: [address] [place] [address] Name: Xuan Mckeon REASON FOR VISIT (unrecogniz ed section and content) Specialty Diagnoses / Procedures Referred By Controel t Referred To Contact Radiology Diagnoses Cervical spondylosis with myelopathy Procedures MR NEURO IMAGE IMPORT(HERNAN) DOWNLOAD [employer] IMAGES TO Christ Lee MD [address] [place] [address] [facility] [address] [place] [address] [place] [address] Referral ID Status Reason Start Date Expiration Date Visits Re quested Visits Authorized [id number] Closed 07/30/2022 07/30/2023 1 1 Reason Comments Syndromes of cervical spine Goals (unrecognized section and content) Goals may be documented in a n alternate section FOR RECORDS PERTAINING TO PATIENTS WHO ARE OR HAVE BEEN ENROLLED IN A CHEMICAL DEPENDENCY/SUBSTANCEABUSE PROGRAM, SOME INFORMATION MAY BE OMITTED. This clinical summary was aggregated from multiple sources. Caution should be exercised in using it in the provision of clinical care. This summary normalizes information from multiple sources, and as a consequence, information in this document may materially change the coding, format and clinical context of patient data. In addition, data may be omitted in some cases. CLINICAL DECISIONS SHOULD BE BASED ON THE PRIMARY CLINICAL RECORDS. [employer] provides no warranty or guarantee of the accuracy or completeness of information in this document.
--- NOTE | 2023-05-18 12:48 | US_ITS ---
The [address] [address] Patient Name: BRAYDEN LINDER MRN: [id number] date: 1950 Sex: F Assigned Patient Location: LAB Current Patient Location: LAB Accession/Order Number: [id number] Exam Date: 05/18/2023 12:52 Report Date: 05/18/2023 13:11 At the request of: ABDI ACOSTA Procedure: US thyroid EXAM: US thyroid HISTORY: Papillary Microcarcinoma Of Thyroid C73 . Follow-up study. COMPARISON: 05/07/2022 TECHNIQUE: Multiple sonographic images of the soft tissues of the neck were obtained, supplemented with Doppler. FINDINGS: The thyroid gland is not visualized. No residual tissue is present after thyroidectomy. There is no evidence of a focal mass or abnormal fluid collection. US/US thyroid IMPRESSION: Prior thyroidectomy. No residual thyroid tissue is identified. Similar findings were noted in the prior study from 04/29/2022. Electronically authenticated by: MAURICE DAILY Date: 05/18/2023 13:11
[2023-05-18 13:52] LABS: Thyroid Stimulating Hormone 4.872 uIU/mL (0.358-3.740)
[2023-05-25 06:11] LABS: Thyroglobulin (TG-RIA) <2.0 ng/mL (.)
== END 2023-05-18 12:37 | disposition home or self-care (01) ==
LOC: LAB 12:36
PROVIDERS: PCP Family Medicine; Visit Provider Otolaryngology
DX: C73 Malignant neoplasm of thyroid gland (principal)
CPT/HCPCS: 36415; 76536; 84432; 84443

== ENCOUNTER 2023-06-27 10:58 | Outpatient (OUT) | payer MEDICARE, OTHER, SELFPAY ==
--- OUTSIDE RECORDS SUMMARY | 2023-06-27 11:04 | XMS_ITS | CCD ---
Author Name Unknown Address [address] [place] [address] Organization [facility] Care Team Providers Care String Laster Name Role Phone UNKNOWN, PROVIDER Admitting Unavailable SANAZ LAKE Referring Unavailable SANAZ LAKE Primary Care Unavailable UNKNOWN, PROVIDER Attending Unavailable SANAZ LAKE Primary Care Physician [phone] Xuan Mckeon Unavailable Unavailable Lonnie Vuong Unavailable [...] DR ROBLEDO Consulting Unavailable LAKE ., DR SANAZ Fulton [...] ., DR SANAZ Fulton Primary Care Unavailable Jed Piedra. Primary Care Physician [phone] Lonnie Vuong Attending Unavailable Lonnie Vuong Admitting Unavailable Sanaz [place] Primary Care Unavailable ABDI ACOSTA Attending Unavailable JED PIEDRA Referring Unavailable JULI COSBY Attending Unavailable KULWANT, VENKAT Attending Unavailable Indiana Walsh Attending Unavailable SHIRLEY Walsh Admitting Unavailabl e LAKE, SANAZ E Referring Unavailable Prudencio Payan Referring Unavailable Prudencio Payan Admitting Unavailable Prudencio Payan Attending Unavailable [place] Walsh Admitting Unavailable Jillian, [place] Attending Unavailable Jillian, [place] Attending Unavailable Jillian, [place] Admitting Unavailable Prudencio Payan Admitting Unavailable Prudencio Payan Attending Unavailable Radha Angulo Attending Unavailable DO Prudencio Payan Admitting Unavailabl e LAKE, SANAZ E Referring Unavailable Prudencio Payan Attending Unavailable DO Prudencio Payan Admitting Unavailabl e LAKE, SANAZ E Referring Unavailable Prudencio Payan Attending Unavailable SHIRLEY Walsh Admitting Unavailabl e LAKE, SANAZ E Referring Unavailable Indiana Walsh Attending Unavailable Jillian, [place] Attending Unavailable LAKE, SANAZ E Referring Unavailable Jillian, [place] Admitting Unavailable Allergies Allergy Classification Reported Allergen(s) Allergy Type Date of Onset Reaction(s) Facility Penicillins (antibiotic) (1 source) Amoxicillin Drug Allergy [address] [facility] Repository (20 sources) Amoxicillin; Translations: [amoxicillin] Drug Allergy 0 rash, Hives, Other [employer] Other (1 source) Amoxicillin Drug Allergy [facility] Repository (1 source) Amoxicillin Drug Allergy 2 [facility] Repository Medications Current Medications Medication Drug Class(es) Dates Sig (Normalized) Sig (Original) acetaminophen 300 mg / codeine phosphate 30 mg oral tablet (3 sources) Opioid Agonist take 1 tablet by mouth every six hours Acetaminophen-Cod eine #3 300-30 MG 1 tablet as needed Orally every 6 hrs Active acetaminophen 325 mg / HYDROcodone bitartrate 5 mg oral tablet (20 sources) Opioid Agonist Start: 04-22-2023 End: 05-22-2023 Quemado 325 mg-5 mg oral tablet 1 tab(s), Oral, BID as needed for pain, 60 tab(s), Refill(s) 0, [id number], 158, cm, 05/21/23 12:39:00 EST, Height/Length Dosing, 100, kg, 05/21/23 12:39:00 EST, Weight Dosing Start Date: 05/21/23 Status: Ordered Start: 12-26-2022 End: 01-25-2023 Quemado 325 mg-5 mg oral table t 1 tab(s), Oral, BID as needed for [...] tablet by mouth every four hours Hydrocodone-Acetaminophen (Quemado) 5-325 mg Tablet Discontinued 1 TAB PO Q4H June 08, 2019 1:00am February 06, 2021 6:48am Acidophilus Probiotic Blend (2 sources) Start: 08-30-2019 take 1 capsule by mouth once daily Acidophilus Probiotic Blend 1 cap(s), Oral, Daily, Refill(s) 0 Start Date: 08/30/19 Status: Ordered [id number] 200 actuat albuterol 0.09 mg/actuat metered dose [...] oral capsule (20 sources) Start: 03-13-2021 take 45706 ug by mouth twice daily Biotin Active 58057 MCG PO Twice daily March 13, 2021 [...] tablet by laura th twice daily Biotin 40543 MCG TABS 1 tablet Orally bid 0 Active Biotin Maximum 07032 MCG (3 sources) Biotin Maximum 1 0000 [...] Refill(s) 0 Start Date: 04/02/21 Status: Ordered Holmes Calcium with Vitamin D (2 sources) Start: 05-20-2017 take 1 tablet by mouth once daily Holmes Calcium with Vitamin D 1 tab(s), Oral, [...] Status: Ordered furosemide 40 mg oral tablet (6 sources) Loop Diuretic Start: 09-26-2022 take 1 [...] oral capsule (20 sources) Anti-epileptic Agent Start: 05-21-2023 gabapenti n 300 mg Cap See Instructions, one cap in AM, 2 caps at bedtime., # 270 cap(s), Refills(s) 0, Pharmacy: [id number], 158, cm, 05/21/23 12:39:00 EST, Height/Length Dosing, 100, kg, 05/21/23 12:39:00 EST, Weight Dosing Start Date: 05/21/23 Status: Ordered Start: 12-08-2022 gabapentin 300 mg Cap See Instructions, one cap in AM, 2 caps at bedtime., # 270 cap(s), Refills(s) 0, Pharmacy: [facility], 158, cm, 09/26/22 13:04:00 EDT, Height/Length Dosing, 106.6, kg, 09/16/22 13:01:00 EDT, Weight Dosing Start Date: 12/08/22 Status: Ordered Start: 04-25-2021 gabapentin (NE URONTIN) 300 MG capsule Start: 06-08-2019 take 300 mg by mouth once daily at bedtime Gabapentin Active 600 MG PO Daily at bedtime June 08, 2019 1:00am 300mg AM take 1 capsule by [facility] eight hours Gabapentin 300 MG 1 capsule Orally three times a day Active Glucos Sul 2xsc-Pyc-Kcdtn-C-Mn (Glucosamine Chondroitin) 550-30-1 mg Capsule (1 source) Start: 06-08-2019 take 1 tablet by mouth twice daily Glucos Sul 7tmn-Ezm-Ypuqr-C-Mn (Glucosamine Chondroitin) 550-30-1 mg Capsule Active 1 TAB PO Twice daily June 08, 2019 1:00am Glucosamine Chondr 1500 Complx - (3 sources) Gl[address]amine Jon[address] 1500 Complx - as directed Orally twice a day Active Qxeajimndaf-Lslqmcoik-E it C-Mn (Glucosamine Chondr 1500 Complx) CAPS [...] Spasm, # 20 tab(s), Refills(s) 0, Pharmacy: [id number], 158, cm, 10/31/21 16:20:00 EDT, Height/Length Dosing, 97.9, kg, 10/31/21 16:20:00 EDT, Weight Dosing Start Date: 11/07/21 Status: Ordered inulin 200 mg / lactobacillus rhamnosus gg [id number] unt oral capsule (4 sources) Lactobacillus-In ulin ([facility] [employer] [facility]) CAPS Take by mouth. 0 Active 24 [...] q6hr, # 20 tab(s), Refills(s) 0, [id number] 158, cm, 10/31/21 16:20:00 EDT, Height/Length [...] day(s), # 14 cap(s), Refills(s) 0, Pharmacy: [facility][id number], 158, cm, 10/31/21 16:20:00 EDT, Height/Length [...] omeprazole 20 mg capsule,delayed release 0 Active potassium chloride 10 meq extended release oral tablet (15 sources) Start: 03-03-2023 take 1 tablet by mouth twice daily Klor Con 10 mEq Cap-ER 1 tab, Oral, BID, # 180 cap(s), Refills(s) 1, Pharmacy: [facility], 158, cm, 02/12/23 12:38:00 EDT, Height/Length Dosing, 104.5, kg, 12/26/22 14:12:00 EDT, Weight Dosing Start Date: 03/03/23 Status: Ordered Start: 03-27-2022 take 1 tablet by laura twice daily Klor-Con 10 1 tab, Oral, BID, Refills(s) 0 Start Date: 03/27/22 Status: Ordered take 1 tablet by laura twice daily at mealtime potassium chloride SA (KLOR-CON) 10 MEQ controlled release tablet 1 tablet with food Orally Twice a day 0 Active primidone 50 mg oral tablet (5 sources) Anti-epileptic Agent Start: 09-16-2022 primidone 50 [...] day(s), # 90 tab(s), Refills(s) 3, Pharmacy: [facility], 158, cm, 07/04/22 14:50:00 [...] disease (7 sources) Atherosclerotic heart disease of [place] coronary artery without angina pectoris; Translations: [ASHD [place] CA W/O ANGINA PECTORIS] Onset: 03-31-2022 Chronic [...] 04-02-2021 Chronic Essential hypertension (20 sources) Hypertensive disorder; Translations: [Essential (primary) hypertension] Onset: 02-27-2022 07-04-2019 Chronic Gastrointestinal hemorrhage (3 sources) Hematochezia; [...] (20 sources) Clostridium difficile diarrhea 08-30-2019 Episodic Osteoarthritis (20 sources) Arthritis; Translations: [Osteoarthritis] Onset: 06-06-2022 07-01-2019 Chronic Osteoporosis (1 source) Age-related osteoporosis without current pathological fracture; Translations: [AGE-REL OSTEOPOR W/O CURR PATH FX] Onset: 06-09-2022 Chronic Other aftercare (1 source) FPC (current) use of aspirin; Translations: [SHELTER CURRENT USE OF ASPIRIN] Onset: 09-16-2022 Episodic Other aftercare (1 source) Other intermediate designer (current) drug therapy; Translations: [OTH SHELTER CURRENT DRUG THERAPY] Onset: 09-16-2022 Episodic Other [...] Chronic Other diseases of kidney and ureters (18 sources) Renal mass 01-08-2022 Chronic Other diseases [...] Chronic Other lower respiratory disease (3 sources) Shortness of breath; Translations: [SHORTNESS OF BREATH] Onset: 04-05-2022 Episodic Other lower respiratory disease (5 sources) Dyspnea 09-16-2022 Episodic Other nervous system disorders (20 sources) Carpal tunnel syndrome 01-19-2019 Chronic Other nervous system disorders (20 sources) Trigeminal neuralgia 11-24-2018 Episodic Other nutritional; endocrine; and metabolic disorders (2 sources) Body mass index (BMI) 40.0-44.9, adult; Translations: [Body mass index (BMI) 40.0-44.9, adult] Onset: 03-18-2023 Chronic Other screening for suspected conditions (not mental disorders or infectious disease) (17 sources) Abnormal renal function; Translations: [Abnormal result of other cardiovascular function study] Onset: 06-22-2023 01-23-2022 Episodic Residual codes; unclassified (20 sources) [...] [Thyroid nodule] Onset: 09-16-2022 07-04-2019 Chronic Unclassified (20 sources) Long-term current use of opiate analgesic [...] source) Hypokalemia; Translations: [HYPOKALEMIA] Onset: 02-19-2022 Episodic Malaise and fatigue (6 sources) Weakness; Translations: [Other fatigue] Onset: 09-12-2022 Episodic Nonspecific chest pain (3 sources) Chest pain, unspecified; Translations: [CHEST PAIN UNSPECIFIED] Onset: 02-19-2022 Episodic Other diseases of kidney and ureters (1 source) Hydronephrosis with renal and ureteral calculous obstruction; Translations: [HYDRONPHROS RENL AND URETRL CALCUL OBST] Onset: 01-14-2022 Episodic Other lower respiratory disease (2 sources) Other forms of dyspnea; Translations: [Other forms of dyspnea] Onset: 01-18-2022 Episodic Respiratory failure; insufficiency; arrest (adult) (1 source) Acute respiratory failure with hypoxia; Translations: [ACUTE RESPIRATORY FAIL W/HYPOXIA] Onset: 02-19-2022 Episodic Urinary tract infections (4 sources) Urinary tract infection, site not specified; Translations: [UTI SITE NOT SPECIFIED] Onset: 05-20-2022 Episodic Results Test Name Value Interpretation Reference Range Facility Insurance Correspondence Off 06-23-2023 Insurance Correspondence Office [id number]#1 .00TIFF [facility] Office Visiton 06-22-2023 Follow-up visit [id number] Yasmeen Linder 1950 F Date Provider Department [place] 06/22/2023 VENKAT BRITTON YURIDIA [facility] Family History Problem Relation Age of Onset Heart failure Mother Family Status - Relation Status Age at Mother Level of Service:17371 [place] OFFICE/OUTPATIENT ESTABLISHED LOW MDM 20 MIN Normal [facility] Consultation Noteon 06-09-19 Consultation Note [id number]#1 .00TIFF [facility] Insurance Correspondence Off ice06-05-2023 Insurance Correspondence Office [id number]#2 .00TIFF [facility] Office/Clinic Note-Physician on 06-05-2023 Office/Clinic Note-Physician [id number] #1.00TIFF [facility] Consent for Treatmenton 05-11 Consent for Treatment [id number]# 1.00TIFF [facility] Consent for Treatment [id number]# 1.00TIFF [facility] Consultation Noteon 05-21-19 24 Consultation Note Patient: DIANN LINDER Age: 73 years Sex: Female : 1950 Associated Diagnoses: None Author: Prudencio Payan DO Chief Complaint 05/21/2023 12:35 EST lower back pain History of Present Illness Patient is presenting with complaints of neck and bilateral upper extremity pain as well as axial back pain. She rates her pain as a 3/10 at baseline but can be slightly higher to a 7 or 8 when exacerbated. We have discussed her neck pain in the past and discussed to be very reasonable for her to follow-up with surgeon before proceeding with any further intervention for her cervical spine. We did discuss her lumbar spine in the past visit and due to this axial pain that is particular worse with standing as well as rotational activities to be very reasonable to pursue lumbar medial branch blocks for lumbosacral spondyloarthropathy. The patient would like to consider this as her back pain is fairly significant and debilitating to her and has not had much relief from other interventions that we have tried thus far. She is taking gabapentin and Quemado and feels that these are very beneficial and provide a least 50% pain reduction for overall pain levels. However, specifically to her low back she would like to see if any additional benefit can be provided as this is still debilitating and she would like to proceed with other interventions as discussed previously. LILIANE Score: 46% PHQ-2: 3 Patient denies any symptoms of progressively worsening [...] 120 mg = 1 tab(s), Oral, qAM Klor Con 10 mEq Cap-ER 1 tab, Oral, BID Quemado 325 mg-5 mg oral tablet 1 tab(s), [...] Histories Past Medical History: Active Thyroid cancer (842866195) Resolved Arthritis (9388796): Resolved. Anxiety (28614789): Resolved. Trigeminal neuralgia of left side of face (31799677): Resolved. Osteopenia (960670009): Resolved. Hypotension (09440292): Resolved. Thyroid cancer (8848192098): Resolved. Carpal tunnel (517146639): Resolved. Liver disease (640311069): Resolved. Microscopic hematuria (917693195): Resolved. Family History: Hypertension Mother Primary malignant neoplasm of female genital organ Mother Heart failure Mother Arthritis Mother Hyperlipidemia Mother Procedure history: Epidural injection of lumbar spine using fluoroscopic guidance (8208871381) on 01/21/2023 at 72 Years. Comments: 02/12/2023 12:36 Ericka Duke RN L5-S1 30% relief Epidural injection of lumbar spine using fluoroscopic guidance (4722545259) on 04/30/2022 at 72 Years. Comments: 06/02/2022 12:54 Denisse Jovel RN L5/S1-50% relief ESWL - Extracorporeal shockwave lithotripsy for renal calculus (460713358) on 11/07/2021 at 71 Years. ALINA L5/S1 (2617284813) on 10/23/2021 at 71 Years. Comments: 11/21/2021 15:36 EDT - Katelynn Kaplan RN L5/S1 60% relief Cystoscope (78781973) on 04/29/2021 at 71 Years. Bilateral L3-L5 RFA (4391464618) on 04/10/2021 at 71 Years. Comments: 05/31/2021 12:43 Katelynn Moscoso RN L3-L5 20% relief Injection of nerve root of lumbar spine using fluoroscopic guidance (6039542588) on 05/16/2020 at 70 Years. Comments: 06/07/2020 9:51 SENA Fay RN, Ericka Chang Bilatateral L5- 20% relief Radiofrequency ablation of medial branch of lumbar nerve using fluoroscopic guidance (5249377714) on 01/25/2020 at 69 Years. Comments: 02/23/2020 11:08 JULISA - Tritsan Senior Medical Technologist., Charline B/L S1-S3 RFA 35% relief Injection of sac (more content not included)... Normal [facility] Comment on above: Result Comment: Elec tronically Signed By: Prudencio Payan DO\.br\Date and Time Signed: 05/21/23 13:13 EST In office Testingon 05-21-19 In office Testing [id number]# 1.00TIFF Normal [facility] Legal Correspondence Officeo n 05-21-2023 Legal Correspondence Office [id number]# 1.00TIFF [facility] Office/Clinic Note-Nurseon 0 05-21-2023 Office/Clinic Note-Nurse [id number]# 1.00TIFF [facility] Office/Clinic Note-Physician on 05-21-2023 Office/Clinic Note-Physician [id number]# 1.00TIFF Normal [facility] Orders Officeon 05-21-2023 Orders Office [id number]# 1.00TIFF Normal [facility] SUPERVISOR 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 Drug Screen-LCon 024 Test Name [id number] Invalid Interpretation Code [facility] Comment on above: Performed By: #### 1 [id number] #### [facility] [address] [place] [address] Patient Correspondenceon Patient Correspondence [id number]# 1.00TIFF Normal [facility] Patient Correspondence [id number]# 1.00TIFF Normal [facility] Patient Correspondence [id number]# 1.00TIFF Normal [facility] Patient Correspondence [id number]# 1.00TIFF Normal [facility] Patient History Officeon Patient History Office [id number]# 1.00TIFF Normal [facility] Reference Laboratory Testing Ordered By: Sierra Hawley on 05-21-2023 Test Name [id number] Invalid Interpretation Code [facility] RAD - Ultrasound Reporton RAD - Ultrasound Report [id number]#1 .00TIFF Normal [facility] Lab Reportson 04-29-2023 Lab Reports [id number]#1 .00TIFF Normal [facility] Consultation Noteon 04-14-20 Consultation Note [id number]#1 .00TIFF Normal [facility] 36on 04-08-2023 36 Please let her know [...] Dr. Tobias as planned. Thanks, Ericka Normal [facility] Telephoneon 04-08-2023 Telephone [id number] Yasmeen Linder richard Lopez 1950 F Date Provider Department Center 04/08/2023 JULI SAUNDERS Family History Problem Relation Age of Onset Heart failure Mother Family Status - Relation Status Age at Mother Normal [facility] Office Visiton 03-18-2023 Follow-up visit [id number] NiyahMalcomantonio richard Lopez 1950 F Date Provider Department Center 03/18/2023 JULI SAUNDERS Family History Problem Relation Age of Onset Heart failure Mother Family Status - Relation Status Age at Mother Level of Service:31754 [place] OFFICE/OUTPATIENT ESTABLISHED MOD MDM 30-39 MIN Reason for Visit and Comments: Coronary Artery Disease [187] Hypertension [773217] Hyperlipidemia [182] Shortness of Breath [306061] Normal [facility] Consent for Treatmenton Consent for Treatment [id number]# 1.00TIFF [facility] Consultation Noteon 02-13-20 Consultation Note Patient: DIANN [...] qAM Klor-Con 10 1 tab, Oral, BID Quemado 325 mg-5 mg oral tablet 1 tab(s), [...] Histories Past Medical History: Active Thyroid cancer (136283483) Resolved Arthritis (5618671): Resolved. Anxiety (23948758): Resolved. Trigeminal neuralgia of left side of face (13472183): Resolved. Osteopenia (237096099): Resolved. Hypotension (32334007): Resolved. Thyroid cancer (4105920556): Resolved. Carpal tunnel (412171676): Resolved. Liver disease (268268857): Resolved. Microscopic hematuria (590293345): Resolved. Family History: Hypertension Mother Primary malignant neoplasm of female genital organ Mother Heart failure Mother Arthritis Mother Hyperlipidemia Mother Procedure history: Epidural injection of lumbar spine using fluoroscopic guidance (3796828834) on 01/21/2023 at 72 Years. Comments: 02/12/2023 12:36 Ericka Duke RN L5-S1 30% relief Epidural injection of lumbar spine using fluoroscopic guidance (3021789581) on 04/30/2022 at 72 Years. Comments: 06/02/2022 12:54 Denisse Jovel RN L5/S1-50% relief ESWL - Extracorporeal shockwave lithotripsy for renal calculus (905262007) on 11/07/2021 at 71 Years. ALINA L5/S1 (5008358335) on 10/23/2021 at 71 Years. Comments: 11/21/2021 15:36 Katelynn Meng RN L5/S1 60% relief Cystoscope (53558172) on 04/29/2021 at 71 Years. Bilateral L3-L5 RFA (7456643173) on 04/10/2021 at 71 Years. Comments: 05/31/2021 12:43 Katelynn Moscoso RN L3-L5 20% relief Injection of nerve root of lumbar spine using fluoroscopic guidance (4685179458) on 05/16/2020 at 70 Years. Comments: 06/07/2020 9:51 SENA Fay RN, Ericka Chang Bilatateral L5- 20% relief Radiofrequency ablation of medial branch of lumbar nerve using fluoroscopic guidance (5614260163) on 01/25/2020 at 69 Years. Comments: 02/23/2020 11:08 JULISA Hudson Senior Medical Technologist., Charline B/L S1-S3 RFA 35% relief Injection of sacroiliac joint using fluoroscopic guidance (3662507612) on 11/30/2019 at 69 Years. Comments: 12/29/2019 11:39 JULISA Hudson Certifie (more content not included)... [facility] Comment on above: Result Comment: Elec tronically Signed By: Prudencio Payan DO\.br\Date and Time Signed: 02/12/23 13:08 EDT Office/Clinic Note-Physician on 02-12-2023 Office/Clinic Note-Physician [id number]#1 .00TIFF [facility] Patient Correspondenceon Patient Correspondence [id number]#1 .00TIFF [facility] Patient Correspondence [id number]#1 .00TIFF [facility] Patient History Officeon Patient History Office [id number]#1 .00TIFF [facility] Consent for Procedure/Surger yon 01-21-2023 Consent for Procedure/Surgery [id number]#1 .00CD:127 [facility] Consent for Treatmenton 01-09 Consent for Treatment [id number]# 1.00CD:127 [facility] Discharge Instructionson Discharge Instructions [id number]#1 .00CD:127 Normal [facility] IntraOperative Documentson 0 01-21-2023 IntraOperative Documents [id number]#1 .00CD:127 Normal [facility] Main OR Intraoperative Recor don 01-21-2023 Main OR Intraoperative Record IntraOp Document Type FTPM Summary Primary Physician: Prudencio Payan DO Finalized Date/Time: 01/21/23 10:51:31 Pt. Name: NIYAH DIANNDAVID Lopez D.O.B./Sex: 1950 Female Med Rec #: [id number] Physician: Prudencio Payan DO Financial #: [id number] Pt. Type: O Room/Bed: / Admit/Disch: 01/21/23 09:16:42 - Institution: Case Times FTPM Entry 1 Patient Times In Room 01/21/23 10:43:00 Out Room 01/21/23 10:52:00 Procedure Times Start 01/21/23 10:46:00 Stop 01/21/23 10:51:00 Anesthesia Times Last Modified By: Suhail CUEVA, Mindy Bae 01/21/23 10:51:24 Case Attendance FTPM Entry 1 Entry 2 Entry 3 Case Attendee Prudencio Payan DO, RN, Antoinette Carreon Role Performed Surgeon - Primary Welder Fitter Helper - Primary Scrub - Primary Time In [...] Javier Mallory Role Performed Scrub - Relief Janitorial Cleaner Time In 01/21/23 10:43:00 01/21/23 10:43:00 Time Out 01/21/23 10:52:00 01/21/23 10:52:00 Procedure LUMBAR EPIDURAL STEROID LUMBAR EPIDURAL STEROID INJECTION(.) INJECTION(.) Comments Last Modified By: Mindy Jang RN, RN, Kayla J 01/21/23 10:51:26 01/21/23 10:51:26 Perioperative Protocols FTPM [...] Time Out Complete 01/21/23 10:43:00 Participants Antoinette Ozuna Jones DO, Bradford A., Ramirez CUEVA, Ronald Salcedo Bryce Outcomes Met? Yes Last [...] and tissue Entry 1 Skin Integrity Intact, [place], Warm, and Skin Abnormality No Dry Outcomes [...] Device Rodney (more content not included)... Normal [facility] Main OR Preoperative Recordo n 01-21-2023 Main OR Preoperative Record Holding Area Document Type FTPM Summary Primary Physician: Prudencio Payan DO Finalized Date/Time: 01/21/23 09:56:09 Pt. Name: DIANN LINDER/Sex: 1950 Female Med Rec #: [id number] Physician: Prudencio Payan DO Financial #: [id number] Pt. Type: O Room/Bed: / Admit/Disch: 01/21/23 [...] Signed By: Asmita Camacho RN 01/21/23 09:56 [facility] Operative Reporton 3 Operative Report L5/S1 interlaminar [...] the epidural space was confirmed using the hqyq-jj-vbkaypxlps technique and 2 cc of air. Injection [...] agrees to continue currently prescribed/recommende d therapies. [facility] Comment on above: Result Comment: Elec tronically Signed By: Prudencio Payan DO.br\Date and Time Signed: 01/21/23 10:52 EDT Patient Correspondenceon Patient Correspondence [id number]# 1.00CD:127 Normal [facility] Office/Clinic Note-Physician on 01-05-2023 Office/Clinic Note-Physician [id number]# 1.00CD:127 Normal [facility] Laboratory Outside Office Co pyon 01-02-2023 Laboratory Outside Office Copy [id number]# 1.00CD:127 [facility] Consent for Treatmenton 12-09 Consent for Treatment [id number]#1 .00CD:127 [facility] Consent for Treatment [id number]#1 .00CD:127 [facility] Consultation Noteon 12-27-19 Consultation Note Patient: DIANN [...] gave her 50% relief. She intermittently uses Quemado 5/325 twice daily as needed pain. She [...] amoxicillin Hives Current medications: (Selected) Prescriptions Prescribed Quemado 325 mg-5 mg oral tablet: 1 tab(s), Oral, BID as needed for pain for 30 day(s), 60 tab(s), Refill(s) 0, [facility]/pharmacy #[id number], 158, cm, 12/26/22 14:12:00 EDT, Height/Length Dosing, 104.5, kg, 12/26/22 14:12:00 EDT, Weight Dosing gabapentin 300 mg Cap: See Instructions, one cap in AM, 2 caps at bedtime., # 270 cap(s), Refills(s) 0, Pharmacy: [facility], 158, cm, 09/26/22 13:04:00 EDT, Height/Length Dosing, 106.6, kg, 09/16/22 13:01:00 EDT, Weight Dosing sertraline 50 mg Tab: 50 mg, Oral, Daily, X 90 day(s), # 90 tab(s), Refills(s) 3, Pharmacy: [facility], 158, cm, 07/04/22 14:50:00 [...] Problems Chronic back pain / SNOMED CT 621748506 / Confirmed Osteoarthritis / SNOMED CT 4660490689 / Confirmed Hematuria / SNOMED CT 560458155 / Confirmed Anemia / SNOMED CT 086384895 / Confirmed HTN (hypertension) / SNOMED CT 5711503967 / Confirmed Glaucoma / SNOMED CT 70032644 / Confirmed Hypothyroid / SNOMED CT 31617541 / Confirmed C. difficile diarrhea / SNOMED CT 7493493556 / Confirmed Anemia / SNOMED CT 966278352 / Confirmed Arthritis / SNOMED CT 7966610 / Confirmed Thyroid cancer / SNOMED CT 385769366 / Confirmed Heart disease / SNOMED CT 32762336 / Confirmed Hypertension / SNOMED CT 7649357282 / Confirmed Hyperlipidemia / SNOMED CT 31253361 / Confirmed Sleep apnea / SNOMED CT 141028843 / Confirmed Long-term current use of opiate analgesic drug / SNOMED CT 779228548982948 / Confirmed Added secondary to current Opioid Treatment Agreement Kidney stones / SNOMED CT 254533370 / Confirmed Renal mass / SNOMED CT 208240734 / Confirmed Abnormal kidney function / SNOMED CT 58028219 / Confirme (more content not included)... Normal [facility] Comment on above: Result Comment: Elec tronically Signed By: Indiana Walsh PA-C\.br\Date and Time Signed: 12/26/22 14:24 EDT\.br\Electronically Co-Signed By: Chad Salas MD\.br\Date and Time Co-Signed: 12/27/22 17:09 EDT In office Testingon 12-27-19 In office Testing [id number]#1 .00CD:127 Normal [facility] Office/Clinic Note-Nurseon 0 12-26-2022 Office/Clinic Note-Nurse [id number]#1 .00CD:127 Normal [facility] Office/Clinic Note-Physician on 12-26-2022 Office/Clinic Note-Physician [id number]#1 .00CD:127 Normal [facility] Orders Officeon 12-26-2022 Orders Office [id number]#1 .00CD:127 Normal [facility] 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 Drug Screen-LCon 023 Test Name [id number] Invalid Interpretation Code [facility] Comment on above: Performed By: #### 1 [id number] ####[facility] [address] [place] [place] [address] Patient Correspondenceon Patient Correspondence [id number]#1 .00CD:127 Normal [facility] Patient Correspondence [id number]#1 .00CD:127 Normal [facility] Patient History Officeon Patient History Office [id number]#1 .00CD:127 Normal [facility] Reference Laboratory Testing Ordered By: Sierra Hawley on 12-26-2022 Test Name RANDAL Invalid Interpretation Code [facility] Consent for Treatmenton 09-08 Consent for Treatment [id number]# 1.00CD:127 Normal [facility] Consultation Noteon 09-27-19 Consultation Note Patient: DIANN [...] gave her 50% relief. She intermittently uses Quemado 5/325 twice daily as needed pain. She [...] Spasm, # 20 tab(s), Refills(s) 0, Pharmacy: [facility]/pharmacy #[id number], 158, cm, 10/31/21 16:20:00 EDT, Height/Length Dosing, 97.9, kg, 10/31/21 16:20:00 EDT, Weight Dosing Quemado 325 mg-5 mg oral tablet: 1 tab(s), Oral, BID as needed for pain, 60 tab(s), Refill(s) 0, [facility], 158, cm, 09/26/22 13:04:00 EDT, Height/Length Dosing, 106.6, kg, 09/16/22 13:01:00 EDT, Weight Dosing gabapentin 300 mg Cap: See Instructions, 1 cap(s) Oral Qam 2 caps QHS, # 270 cap(s), Refills(s) 0, Pharmacy: [facility], 158, cm, 05/31/21 12:51:00 EST, Height/Length Dosing, 95.2, kg, 05/31/21 12:51:00 EST, Weight Dosing gabapentin 300 mg Cap: See Instructions, one cap in AM, 2 caps at bedtime., # 270 cap(s), Refills(s) 0, Pharmacy: [facility], 158, cm, 07/04/22 14:50:00 EST, Height/Length Dosing, 99, kg, 07/04/22 14:50:00 EST, Weight Dosing sertraline 50 mg Tab: 50 mg, Oral, Daily, X 90 day(s), # 90 tab(s), Refills(s) 3, Pharmacy: [facility] [employer] [facility], 158, cm, 07/04/22 14:50:00 EST, [...] Problems Chronic back pain / SNOMED CT 708572257 / Confirmed Osteoarthritis / SNOMED CT 2277381426 / Confirmed Hematuria / SNOMED CT 338912633 / Confirmed Anemia / SNOMED CT 119086135 / Confirmed HTN (hypertension) / SNOMED CT 3360375055 / Confirmed Glaucoma / SNOMED CT 45921345 / Confirmed Hypothyroid / SNOMED CT 66419545 / Confirmed C. difficile diarrhea / SNOMED CT 8083248827 / Confirmed Anemia / SNOMED CT 751527492 / Confirmed Arthritis / SNOMED CT 8720422 / Confirmed Thyroid cancer / SNOMED CT 656547884 / Confirmed Heart disease / SNOMED CT 08103756 / Confirmed Hypertension / SNOMED CT 0375629215 / Confirmed Hyperlipidemia / SNOMED CT 90465257 / Confirmed Sle (more content not included)... [facility] Comment on above: Result Comment: Elec tronically Signed By: Indiana Walsh PA-C\.br\Date and Time Signed: 09/26/22 13:15 EDT\.br\Electronically Co-Signed By: Chad Salas MD\.br\Date and Time Co-Signed: 09/29/22 22:18 EDT Office/Clinic Note-Physician on 09-26-2022 Office/Clinic Note-Physician [id number]#1 .00CD:127 [facility] Patient Correspondenceon Patient Correspondence [id number]#1 .00CD:127 [facility] Patient Correspondence [id number]#1 .00CD:127 [facility] Patient History Officeon Patient History Office [id number]#1 .00CD:127 [facility] Ambulatory Visit Summaryon 0 09-16-2022 Ambulatory Visit Summary NIYAH DIANN D :1950 Visit Date:09/16/2022 Ambulatory Visit Instructions Your Diagnosis Recurrent falls while walking Fatigue Pain Osteoarthritis BMI 40.0-44.9, adult Non-smoker Your Care Team Attending Physician - Radha Guzman Primary Care Physician - WENDY SOMMERS, SANAZ Fulton This Is Your Medications List acetaminophen-hydroco done (Quemado 325 mg-5 mg oral tablet) acetaminophen-hydroco done (Quemado 325 mg-5 mg oral tablet) acetaminophen-hydroco done (Quemado 325 mg-5 mg oral tablet) alendronate (Fosamax [...] Much When Why Instructions Unchanged acetaminophen-hydroco done (Quemado 325 mg-5 mg oral tablet) 1 Tablets By Mouth 2 times a day as needed for as needed for pain Unchanged acetaminophen-hydroco done (Quemado 325 mg-5 mg oral tablet) 1 Tablets By Mouth 2 times a day as needed for as needed for pain Unchanged acetaminophen-hydroco done (Quemado 325 mg-5 mg oral tablet) 1 Tablets [...] D ext (more content not included)... Normal [facility] Family Medicine Office/Clini c Noteon 09-16-2022 Family Medicine Office/Clinic Note Chief Complaint est care, er f/u HPI Staff Patient is here for an ER follow up. Hospital:[facility] Admission date:09/12/22 Symptoms the patient presented with: [...] of facet (more content not included)... Normal [facility] Comment on above: Result Comment: Elec tronically Signed By: Radha Guzman\.br\Date and Time Signed: 09/16/22 13:30 EDT ED Note-Physicianon 09-16-19 ED Note-Physician [id number]#1 .00CD:127 Normal [facility] BNPon 09-12-2022 Natriuretic peptide B (Bld) [Mass/Vol] 136.0 pg/mL Normal <=900.0 [facility] Comment on above: Performed By: #### C VDAGS #### [facility] [address] [place] [address] Dr. Sherry Sanches CBC AUTO DIFFon 09-12-2022 BASO # 0.0 103/ul Normal 0.0-0.1 [facility] Comment on above: Performed By: #### C BC #### [facility] [address] [address] [address] Sherry Sanches Basophils/100 WBC (Bld) 0.6 % Normal 0.2-2.0 [facility] Comment on above: Performed By: #### C BC #### [facility] [address] [address] [address] Sherry Sanches EO # 0.1 103/ul Normal 0.0-0.7 [facility] Comment on above: Performed By: #### C BC #### [facility] [address] [address] [address] Sherry Sanches Eosinophils/100 WBC (Bld) 2.2 % Normal 0.9-7.0 [facility] Comment on above: Performed By: #### C BC #### [facility] [address] [address] [address] Sherry Sanches Erythrocyte distribution width (RBC) [Ratio] 12.9 % Normal 11.0-15.0 [facility] Comment on above: Performed By: #### C BC #### [facility] [address] [address] [address] Sherry Sanches Hematocrit (Bld) [Volume fraction] 35.9 % Critically low 36.0-48.0 [facility] Comment on above: Performed By: #### C BC #### [facility] [address] [address] [address] Sherry Sanches Hemoglobin (Bld) [Mass/Vol] 11.8 g/dL Critically low 12.0-16.0 [facility] Comment on above: Performed By: #### C BC #### [facility] [address] [address] [address] Sherry Sanches IG # 0.04 10e3/ul Critically high 0.00-0.03 [facility] Comment on above: Performed By: #### C BC #### [facility] [address] [address] [address] Sherry Sanches IG % 0.6 % Critically high 0.0-0.5 [facility] Comment on above: Performed By: #### C BC #### [facility] [address] [address] [address] Sherry Sanches LYMPH # 0.9 103/ul Critically low 1.2-3.8 [facility] Comment on above: Performed By: #### C BC #### [facility] [address] [place] [address] Dr. Sherry Sanches Lymphocytes/100 WBC (Bld) 13.5 % Critically low 20.5-60.0 [facility] Comment on above: Performed By: #### C BC #### [facility] [address] [place] [address] Dr. Sherry Sanches MANUAL DIFF REQ NO Normal [facility] Comment on above: Performed By: #### C BC #### [facility] [address] [place] [address] Dr. Sherry Sanches MCH (RBC) [Entitic mass] 31.6 pg Normal 26.7-34.0 [facility] Comment on above: Performed By: #### C BC #### [facility] [address] [place] [address] Dr. Sherry Sanches MCHC (RBC) [Mass/Vol] 32.9 g/dL Normal 29.9-35.2 [facility] Comment on above: Performed By: #### C BC #### [facility] [address] [place] [address] Dr. Sherry Sanches MCV (RBC) [Entitic vol] 96.2 fL Normal 81.0-99.0 [facility] Comment on above: Performed By: #### C BC #### [facility] [address] [place] [address] Dr. Sherry Sanches MONO # 0.6 103/ul Normal 0.3-0.8 [facility] Comment on above: Performed By: #### C BC #### [facility] [address] [place] [address] Dr. Sherry Sanches Monocytes/100 WBC (Bld) 9.9 % Normal 1.7-12.0 [facility] Comment on above: Performed By: #### C BC #### [facility] [address] [address] [address] Sherry Sanches NEUT # 4.6 103/ul Normal 1.4-6.5 [facility] Comment on above: Performed By: #### C BC #### [facility] [address] [address] [address] Sherry Sanches Neutrophils/100 WBC (Bld) 73.2 % Normal 43.0-75.0 [facility] Comment on above: Performed By: #### C BC #### [facility] [address] [address] [address] Sherry Sanches Platelet mean volume (Bld) [Entitic vol] 9.1 fL Critically low 9.5-13.5 [facility] Comment on above: Performed By: #### C BC #### [facility] [address] [place] [address] Dr. Sherry Sanches PLT 220 103/ul Normal 150-450 [facility] Comment on above: Performed By: #### C BC #### [facility] [address] [place] [address] Dr. Sherry Sanches RBC 3.73 106/ul Critically low 4.20-5.40 [facility] Comment on above: Performed By: #### C BC #### [facility] [address] [place] [address] Dr. Sherry Sanches WBC 6.3 103/ul Normal 4.0-11.0 [facility] Comment on above: Performed By: #### C BC #### [facility] [address] [place] [address] Dr. Sherry Sanches CPKon 09-12-2022 CK [Catalytic activity/Vol] 84 U/L Normal 26-192 [facility] Comment on above: Performed By: #### C BC #### [facility] [address] [place] [address] HEAD WO CONon [...] MAURICE DAILY Date: 2022-09-12 16:26 Normal [facility] Covid-19 PCR ([facility])on SARS-CoV-2 (COVID-19) RNA GABE+probe Ql (Unsp spec) Not detected Normal NOT DETECTED [facility] Comment on above: Result Comment: This test is not yet approved or cleared by the [place] FDA. When there are no FDA-approved or cleared tests available, and other criteria are met, FDA can make tests available under an emergency access mechanism called an Emergency Use Authorization (EUA). The EUA for this test is supported by the Plastic Surgery Specialist of Health and Human Service's (HHS's) declaration [...] SARS-CoV-2. Performed By: #### C VDAGS #### [facility] [address] [place] [address] Dr. Sherry PACHECO URINE PROFILEon 3 Bilirubin Ql (U) Negative Normal NEGATIVE [facility] Comment on above: Performed By: #### Donaldo RAMIREZ UMICRO #### [facility] [address] [place] [address] Dr. Sherry Sanches Clarity (U) CLEAR Normal CLEAR [facility] Comment on above: Performed By: #### Donaldo RAMIREZ UMICRO #### [facility] [address] [place] [address] Dr. Sherry Sanches Color (U) LT. YELLOW Normal YELLOW [facility] Comment on above: Performed By: #### Donaldo RAMIREZ UMICRO #### [facility] [address] [place] [address] Dr. Sherry ALVARESAHJohn A micrscopic examination will be performed if indicated. Normal [facility] Comment on above: Performed By: #### RADHA FOWLERICRO #### [facility] [address] [place] [address] Dr. Sherry Sanches Glucose Ql (U) Negative Normal NEGATIVE [facility] Comment on above: Performed By: #### RADHA FOWLERICRO #### [facility] [address] [place] [address] Dr. Sherry Sanches Hemoglobin Ql (U) MODERATE Abnormal NEGATIVE [facility] Comment on above: Performed By: #### Donaldo RAMIREZ UMICRO #### [facility] [address] [place] [address] Dr. Sherry Sanches Ketones Ql (U) Negative Normal NEGATIVE [facility] Comment on above: Performed By: #### Donaldo RAMIREZ UMICRO #### [facility] [address] [place] [address] Dr. Sherry Sanches LEUKOCYTES Negative Normal NEGATIVE [facility] Comment on above: Performed By: #### Donaldo RAMIREZ UMICRO #### [facility] [address] [place] [address] Dr. Sherry Sanches Nitrite Ql (U) Negative Normal NEGATIVE [facility] Comment on above: Performed By: #### Donaldo RAMIREZ UMICRO #### [facility] [address] [place] [address] Dr. Sherry Sanches pH (U) 5.0 [pH] Normal 5-9 [facility] Comment on above: Performed By: #### Donaldo RAMIREZ UMICRO #### [facility] [address] [place] [address] Dr. Sherry Sanches SPEC GRAVITY 1.020 Normal 1.005-<=1.02 5 [facility] Comment on above: Performed By: #### Donaldo RAMIREZ UMICRO #### [facility] [address] [place] [address] Dr. Sherry Sanches UA PROTEIN Negative Normal NEGATIVE/ TRACE [facility] Comment on above: Performed By: #### Donaldo RAMIREZ ICRO #### [facility] [address] [place] [address] Dr. Sherry Sanches UR MICRO IND INDICATED Normal [facility] Comment on above: Performed By: #### Donaldo RAMIREZ UMICRO #### [facility] [address] [place] [address] Dr. Sherry Sanches Urobilinogen Qn (U) 0.2 {Ellen'U}/dL Normal 0.2 - 1. 0 [facility] Comment on above: Performed By: #### Donaldo RAMIREZ UMICRO #### [facility] [address] [place] [address] Dr. Sherry Sanches LIPASEon 09-12-2022 Lipase [Catalytic activity/Vol] 125.0 U/L Normal 73.0-393.0 [facility] Comment on above: Performed By: #### C BC #### [facility] [address] [place] [address] Dr. Sherry Sanches PROF 14(COMP METB)on 023 Albumin [Mass/Vol] 3.7 g/dL Normal 3.4-5.0 [facility] Comment on above: Performed By: #### C BC #### [facility] [address] [place] [address] Dr. Sherry Sanches Albumin/Globulin [Mass ratio] 1.1 {ratio} Normal [facility] Comment on above: Performed By: #### C BC #### [facility] [address] [place] [address] Dr. Sherry Sanches ALP [Catalytic activity/Vol] 104 U/L Normal 46-116 [facility] Comment on above: Performed By: #### C BC #### [facility] [address] [place] [address] Dr. Sherry Sanches ALT [Catalytic activity/Vol] 19 U/L Normal 14-59 [facility] Comment on above: Performed By: #### C BC #### [facility] [address] [place] [address] Dr. Sherry Sanches Anion gap [Moles/Vol] 11.1 mmol/L Normal [facility] Comment on above: Performed By: #### C BC #### [facility] [address] [place] [address] Dr. Sherry Sanches AST [Catalytic activity/Vol] 15 U/L Normal 15-37 [facility] Comment on above: Performed By: #### C BC #### [facility] [address] [place] [address] Dr. Sherry Sanches Bilirubin [Mass/Vol] 0.5 mg/dL Normal 0.2-1.0 [facility] Comment on above: Performed By: #### C BC #### [facility] [address] [place] [address] Dr. Sherry Sanches Calcium [Mass/Vol] 8.9 mg/dL Normal 8.5-10.1 [facility] Comment on above: Performed By: #### C BC #### [facility] [address] [place] [address] Dr. Sherry Sanches Chloride [Moles/Vol] 104 mmol/L Normal 98-107 [facility] Comment on above: Performed By: #### C BC #### [facility] [address] [address] [address] Sherry Sanches CO2 [Moles/Vol] 29.7 mmol/L Normal 21.0-32.0 [facility] Comment on above: Performed By: #### C BC #### [facility] [address] [address] [address] Sherry Sanches Creatinine [Mass/Vol] 1.29 mg/dL Critically high 0.55-1.02 [facility] Comment on above: Performed By: #### C BC #### [facility] [address] [address] [address] Sherry Sanches EGFR-AF ANDORRAN 49 mL/min/1.73m2 Critically low >=60 [facility] Comment on above: Performed By: #### C BC #### [facility] [address] [address] [address] Sherry Sanches EGFR-NON AF ANDORRAN 41 mL/min/1.73m2 Critically low >=60 [facility] Comment on above: Performed By: #### C BC #### [facility] [address] [address] [address] Sherry Sanches Globulin (S) [Mass/Vol] 3.4 g/dL Normal [facility] Comment on above: Performed By: #### C BC #### [facility] [address] [address] [address] Sherry Sanches Glucose [Mass/Vol] 126 mg/dL Critically high 74-106 [facility] Comment on above: Performed By: #### C BC #### [facility] [address] [address] [address] Sherry Sanches Potassium [Moles/Vol] 3.8 mmol/L Normal 3.5-5.1 [facility] Comment on above: Performed By: #### C BC #### [facility] [address] [address] [address] Sherry Sanches Protein [Mass/Vol] 7.1 g/dL Normal 6.4-8.2 [facility] Comment on above: Performed By: #### C BC #### [facility] [address] [address] [address] Sherry Sanches Sodium [Moles/Vol] 141 mmol/L Normal 136-145 [facility] Comment on above: Performed By: #### C BC #### [facility] [address] [place] [address] Dr. Sherry Sanches Urea nitrogen [Mass/Vol] 17.0 mg/dL Normal 7.0-18.0 [facility] Comment on above: Performed By: #### C BC #### [facility] [address] [place] [address] Dr. Sherry Sanches Urea nitrogen/Creatinine [Mass ratio] 13.2 mg/mg Normal [facility] Comment on above: Performed By: #### C BC #### [facility] [address] [place] [address] Dr. Sherry Sanches SYMPTOMATIC COVID-19 ANTIGEN on 09-12-2022 EUA Statement SEE BELOW Normal [facility] Comment on above: Result Comment: This [...] sooner. Performed By: #### C VDAGS #### [facility] [address] [place] [id number] Dr. Sherry Sanches SARS-CoV-2 (COVID-19) RNA GABE+probe Ql (Unsp spec) Negative Normal NEGATIVE [facility] Comment on above: Performed By: #### C VDAGS #### [facility] [address] [place] [address] Dr. Sherry Sanches TROPONIN, HIGH SENSITIVITYon 09-12-2022 HSTROP 5.9 pg/mL Normal 4.0-51.3 [facility] Comment on above: Result Comment: CUT- OFF POINTS HAVE BEEN ESTABLISHED BASED ON THE FOURTH UNIVERSAL DEFINITIONS OF MYOCARDIAL INFARCTION. THE UPPER REFERENCE LIMIT (URL) OF TROPONIN, DEFINED THE 99TH PERCENTILE OF cTnI DISTRIBUTION IN A REFERENCE POPULATION, HAS BEEN CONFIRMED THE DECISION THRESHOLD FOR [place] DIAGNOSIS. Performed By: #### H STROPN #### [facility] [address] [address] [address] Sherry Sanches HSTROP 5.0 pg/mL Normal 4.0-51.3 [facility] Comment on above: Result Comment: CUT- OFF POINTS HAVE BEEN ESTABLISHED BASED ON THE FOURTH UNIVERSAL DEFINITIONS OF MYOCARDIAL INFARCTION. THE UPPER REFERENCE LIMIT (URL) OF TROPONIN, DEFINED THE 99TH PERCENTILE OF cTnI DISTRIBUTION IN A REFERENCE POPULATION, HAS BEEN CONFIRMED THE DECISION THRESHOLD FOR [place] DIAGNOSIS. Performed By: #### C VDAGS #### [facility] [address] [address] [address] Sherry Sanches URINE MICROSCOPIC ONLYon BACTERIA TRACE Abnormal NONE SEEN [facility] Comment on above: Performed By: #### MARY JO FOWLERRO ####[facility] [address] [address]DrBita Sanches Bacteria identified Cx Nom (U) NOT INDICATED Normal [facility] Comment on above: Performed By: #### Donaldo RAMIREZ UMICRO ####[facility] [address] [address]DrBita Sanches CAST NONE SEEN Normal NONE SEEN [facility] Comment on above: Performed By: #### Donaldo RAMIREZ UMICRO ####[facility] [address] [address]DrBita Sanches Crystals LM Nom (Urine sed) NONE SEEN Normal NONE SEEN [facility] Comment on above: Performed By: #### Donaldo RAMIREZ UMICRO ####[facility] [address] [address]DrBita Sanches Epithelial cells LM Ql (Urine sed) FEW Abnormal NONE SEEN /RARE [facility] Comment on above: Performed By: #### E RUR, UMICRO ####[facility] [address] [id number][address] Sherry Sanches MUCOUS TRACE Abnormal NONE SEEN [facility] Comment on above: Performed By: #### E RUR, UMICRO ####[facility] [address] [place], [place] [address]Tp. Sherry Sanches RBC 10-20 Abnormal 0-2 [facility] Comment on above: Performed By: #### E RUR, UMICRO ####[facility] [address] [place], [place] [address]Gv. Sherry Sanches WBC 0-2 Abnormal NONE SEEN [facility] Comment on above: Performed By: #### E RUR, UMICRO ####[facility] [address] [place], [place] [address]Vv. 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 Charline Velazquez RN Patient at risk for falls:Yes Falls Risk protocol implemented: Yes Ambulates with cane Charline Velazquez RN Normal [facility] Outside Records Officeon Outside Records Office [id number]# 1.00CD:127 Normal [facility] Coding Summary.on 07-31-2022 Coding Summary. CD:[id number] W w+PGhlYWQ+YO7ZXCJnD79 mtDLdmZ5oR7BFBXvHYlms MHJYRAfJUqXugpUoAV9pf XNjZXJu IC8+XT4eJXRsJptodZGbx 3H9bIC0X33lax0kCZxhfL U0YEGyEwXziyfqy9zkjTa 6IDcuNmluOyBt UKKnwJ18QRI8hB25Ww83t OVfuAUaq4jseLk3FpNsYC MnUUY5dQmnQAtyr9BoIJJ jG82pzGEdi7T5 TRFzcYlmsBIjPlQnwOT4n U1fWBmjukpxz5mujdnhPv g2kj96vXXby6X0jAX6G0Q iwtI1ZFRviLJb UldegUWThS8ypnvxh0gwt opfGqOgIREuMLj3VOe4FQ AabUieCuHeFG08UPZ5JEL ibmUbH3XeHDKr tRonVcY7e2M3Vx0RJ8NIE qitF8VWDPTQJZiniSB+PC 14lx86U0NeVxbgWkz2HLF aIGT8nUY1qH7j ZTQiLGymx8T7xDX3T7Irf bMniz2qs3ejKTTqJYbdE8 6foLWio7T0XDJqtXG0SLD ryVtmOyOkhX36 Oyc+TNZozSjun6DjMtyil 7gea9jgeAc0RpnyORSrzb TpvTosNGQ0c8LkZb7oGWB xkQT2gME5xQ8f MtDpXrO0CVpcT200NvDuu DZpZpxkL82kG7PsxEL+PH ZbHnn2XKIiyIjeRE3uU8X hZGRpbmctbGVm gEdoXG4aFUEqbqfnHGKer F9uQCBxP4p0RpMcLqI3PU yuF5TuVDZwegrsDw78aL5 pErTcGoO5SOnv C2XqrpY6EFPdcXZgGEzzO GT5S10gn1K5UCQxTAYhBZ T4fYO7tE4fjBjumodkaYK mdDsgdmVydGlj QQebWFfjS266NADmcBceY kNvZGluZyBEYXRlOiAgMD MvMjMvMjAyMzwvdGQ+PHR yNTP5nPtdZWEh uIClSCuwYm7lfYrrqPaaZ R3gCQZtmzqwBCUqtU3zSB ZggYDmcJzsLI9dMZTgqae jn433UsDcCKJ8 RCYcyKImS6WyyV2cJcExJ LOhCIUhC6SskNCwWKguH4 16HAfaNpX7PEOnehXoH5S sLWFsaWduOiB0 f1J6Kw8Uq4PdyvkgV6Kpl NFwEpOyDlrzHRb6O2DsGg wvdHI+FU47HQVlAI11CWu 9GAN5mInwAUbb FZPpB5OhiB6oNpQcNQFoH GRkOyc+PHRhYmxlIHdpZH RoPScxMDAlJyBzdHlsZT0 eSw8tCIOvRCDj uHsclSPvMtYjz9qxKPDcN FlbIC9yuApyB9RcxNB7CC Wyk5o6Wt42T09eU7DwdHC +WNCdoGN5pTM7 pW0sSyMcScY4MIihS942I xXxkZWaCmfda8amz7sivM i1UiH7MEGczxOorRlzJNJ 6k7VhLa20R31w IHdpZHRoPSIxNSUiIHZhb Rajlr1tzM1vZa6+PGNvbC C9cOY4xA0dDrYqQkZ2YOh cY817EpWorJGt Qmvng9ysc3jtdGk9EmGeG TYywdBnxVniDJY4w1FrTu 31Z5WkkNnls9YxFyu3yo6 6vVVns5O6qSS8 P2RxLOUzdittdCNpbQdvH R3kZXZlhuriBXMulK4yIH JsI2g8TyMqRuJ0BYfpZ6L upoW2BFZxrDHt PLZiwIWWpU5ujnyzl2yjp xmdBmNpKLNjVIx7VNk9NN UhkCeaSaAwBKH4BsF0SFX 5dABbkV1xsWqb szpmnJ8tZtq+PYA9qVDmi JXAML5yEgwfhWF+PHRkIH V0sHwuHZgfIWUwqO4eDQO kC6q6QdVrLmT1 VKlzN1RxmkO0ERKeyEFdM FYssFUEqX4tjqihl1gnjn cpKnRoHBOeNVd8OEk9GIC saWduOiBsZWZ0 OwY7SCZ9wZGtlB1xeMroc xrzoR7vJtf+QmlydGggRG L1YJu4K2QiDww5XLGerPu oOZ0hfRDaZDab Cm4mqPdlfErlFR7uOVPqu eiyq894VnEpn8yqFKPayS WmFYqkGWM6W49nv8L8WIZ bSMFcQKQ5aBY7 dE2uuEbixrxqmWEjmDetd iWxbEwtUFlhWTecM248YX WcwMjrPtAgMQi4G3AwFpk 7YQNvePodQO7p lUMbFSjcDe7keXzovZgtK W9jZNSuxfhbc229IxHkb7 dwAZRdgEHmKXaaUHI1U84 bk2C9PTVfZSFh NML9vDU7sC6mkNofzpacr GVmdDsgdmVydGljYWwtYW jmX725GLNhkJuwWzNorNj 4Y7VzKmh1KYTz zUjgOA5wcDBxAMpuZj4mz XvqcNidRE3rDXVqppedz7 93ScMhm0aaDBOzgHWaKTo tSEB4C28xa3N9 HEJcAVGbXEL8dZM5sI2kw GlnbjogbGVmdDsgdmVydG jhFTdaLNslK427AZRsfPt nPlBhdGllbnQg BYvvPBt2R6CoHrravCX+P P43KYEuVP11jPCcrPVzj5 jpzYl9KlYeDJLnHSS6qVo wTLofu6RsJDQj D27viFGvf4V6MESrjJwwu SGuZdXjcPB0qD7bCSnjqa jbs7egbzluPppwp0ynhy5 0nC70V82xNObj ZHRoPSIzMCUiIHZhbGlnb j6emG3wNs2+ABXkvQM0tL Z7eI3uTOPxJeB4VGavF36 9InRvcCIvPjxj e4vvc1vuuUw3IkR7XBKui sKuhSriRTO6b2AhJt65T4 9sIHdpZHRoPSIyMCUiIHZ gyOeail2pwY5o Ii8+PSAuhWF0lNQ2hV0uM tUcMkF0OFegX240BgTfcM DiEnjlF29yH3TosIT+PHR aRtj0QKOuwOzg UD1kuYSuSAxaFw9gPXW3S dNjPwLbFMvkH0SoUVOgfd rzdzdatKH6RVUnKOQpwN6 8Zv8phReqBAVs pIJDjB0vgxnzg9xthjxpB jGjOJLvWRd3XRl4XYJayB imXcNbZNT3YvV7EKB4pAV etJ6bjAdsojlu tZ3wQ3AuEMOrwexfGc64w M3gBwThQdF7VQsmStk+V0 VMTFMsIFNIRVJSWSBEPC9 3LU22lGRph2Q8 jZA1I7TxCFOwprnegrofp IM9YAMtDVBqdM15nSEpDN mcWs5ak9Z1j621GAPbIRF oxV79Mg3wcNgr QBGvdTVKqN7myprzl3zvb cclMjQiVXKiWDs7TQl3IZ KzuAtfYxXaMNY4WsT6ICC 4zDRshC8fzKzq lfrudT3qXur+MDkvMjIvM Df2OMbnfCY+UKBtUSG8mJ ycSWeyOPHuwD3kLTLmQ7h 1EqXpNtP0PIxd D2UoYNHbkakxBs29pF6aJ bPaRfO0LUvzW4DqcdT1JE DigSOgJMkhYXT4K61ju1G 3NSGqNLIsSIS5 sWL1zW3llPmcpnsnbNTzl DsgdmVydGljYWwtYWxpZ2 46IHRvcDsnPjcyIFllYXJ rTG32KY89aKMy n8N0jHD5S4YqSTAnvxesv kafpIV6SODjJMBjmR56zE ZdVNkmGt3kj7L3t280EAA lFMFccW61Gp6w jGddDUIogHVToS0nltjsc 3dknepjYpEcBRWmSOj1BE b8NONyhHkvPaYeIZQ5JrL 3XZI1dNTvvK0t wNylvnpgrQ4dTkw+RmVtY VstVP90SI38yEEqv9U6yL C5B2DoITCxqmhvesdasKS 2NZHaBBSwpX56 nBWfEYnhQd4fq4U7r739D NNuTAWzzG44Fw1ryOesRX AjkJNGxV3arsbsx9downo gIzAwMDAwMDt0 PKu4GQHdiCopRbPqAIG0G bA9YRE2sJDivH5kuDutif fnnB4uYsz+J0Z2gPX1hJV udDwvdGQ+PC90 ye39G6PaDjrpNhf6FBHxD PB6aNO3rI9uQRLeCGska1 C4fVW4U9MretCthw5la6b nHPOfFRscN99i fIZyv1W4DJTcpRW7HHMcf ShcIrQvjQ09Eyo+PGNvbG szv6FrMmdxi2bxw0dnoRl 9IjMwJSIgdmFs aCehTQE7i9LfHs08A85uC HdpZHRoPSIzMCUiIHZhbG jahb0fgA0wLw4+PGNvbCB 3tTT3kT7hEkKr OhD4IRjgZ861DjUkwRXbC txvy5dpb0bnbWg6VtDpXC OjebPawOkiLXK6y6KtDn0 1T1QaiFvyo0Ba Chm4yz51tOVjg0H2yVD5T 3BhZGRpbmctbGVmdDogMC 3dLVYdvsitXNTqgS6gGNN kJ0s1YeKxOqV1 FYdiN5UlkjP6MMHziHLxG GRbzWCWpW6gfkcwn5jytc hfLkUaVRLnRZu6YPj3WTV saWduOiBsZWZ0 BsY3JLE9zIBqkO5bnAuou sejgY4pLht+YTs2y2aecU QzZL7orIC4JZ47ZO73wPC lr1W0tUG5G2Ro ZVOirzkinbhujSK8RVHxY FUuxD79Ro9lwZfmQm8pMQ GmANM8ZFUlwWAbQ5GqyR1 yOiAjMDAwMDAw P2KqtDQvPJluO848FKcuX xN7SOLiblMxR5WbCPKhaR hdArA7f0X1Un6ZIZ74YZ9 0ZB05kLAum1O9 rVX3I5ZwMZTqnldwebvui HV6ZFNqXBZuwL51Lk9tzC jwGe7wDPXbESG3WKIsoEF qS8VytL6aCjYq DLEiBWYlD2RzqGChUFzjG 973YTggFyI8MFBnznGoR8 NgJIBmfDvkGaM5t0T3Zi2 PTe79OR61HT90 zSVdx1T1cOZ2B0MmNKYni dnytuiafFO3ZIFyTRHhyM 80Bv5cnFgaDn5pRPBiJXV 4XNYdtSBzR9Oo rE9nCzGaYMRvONHrE9Ssj NWbKFkcE382VNbtKjL0WN MaobTbU6AcRMUpkTpeByL 5w2Z9Up7QSCgn mwz4I0GgWezehBV+PC90Y PZuBG55aRHniYNgl5phyB u6FsIrDWIeURD0tYvcAVc tg3AwWOYeG88c sJPau1J4 (more content not included)... Normal [facility] Physician Orderon 07-31-2022 Physician Order [id number]#1 .00CD:127 Normal [facility] Laboratory Outside Office Co pyon 07-11-2022 Laboratory Outside Office Copy [id number]# 1.00CD:127 [facility] Coding Summary.on 07-09-2022 Coding Summary. CD:[id number] G h0bWw+PGhlYWQ+OI5QPJG jB17sxHCiwM3TP3zVTH5X KIXGCKQTLI3MCV2ftSM6D MgnJ9UjaxDv QkvarMOpYX20WDs3MKR0r SraNLmeuL2loZTdX8a9Tj KwOH41xT37LHimJJZnGyU 3LjZpbjsgbWFy D4vjJqMaaILuHdd+PHRhY mxlIHdpZHRoPScxMDAlJy SddOgdIR6hFk9pGKTzGSE vbGxhcHNlOiBj m5yhXVVwOPedRK1fdYboQ 6GojHN7RWPqy9l5Da44pA I+CIVeWAO0bUnbGLxbw73 1YmMgw1jkCEN4 dWNyUGarQOE9G08xt8F6T YYpCVWzVUW7zAA5jO0cqA nyjzlcO7SonWTxCvD1TWT 7eTRjzY6sbVqo naksdF4qWwq+A68NOF6XL DBDLD6ZHry1A8ZxMjhyhE I+TD44DWIyLN72mECluJS ob0wtvJi2NwIp ILWeRIX0bRnyAMgct4DmZ CZbD33bgAVus8G7JVQceV pjxMNbKwBosJO3gQ4aXSp mnjrtt9tuozfa Hswny8cccr67cA73Y33wY InhOLMzMFO2CBYyKMCwvB zphe4itF2tCi1+XDpfl1b fm7zebJk5PdQj RYOfveBudZwuGBE1l6WtW e85R8BzvXicz8SdAit2af 17wVByv6S7oNY4IZptRAK qzR7sBHsvZtP7 UULbFmDbtW10xSOzHDooW k8mgImgbVniGQ2wXUCgpw vaEPYiyB2aAHIvyUAvvIc tLJ6kBSPcqyzj f229CqLrISU2YXXgwEPoB 2KzjG1fNkKwIDLtEXJsX4 ZztAIuLNpqA804YKkhLkD 3SABedzMzG1Xq HOSarZqzHjG5y5J5Gw1Bh 4EismoiLSQ3FIbfSFMvAj RaEyYuLzA1A2KrXpf5ABS fhHnwCY5rE6Xd KXXqftjxqfsqjME8UNLrY DUvlP00cNMfZUroMv9vp5 F7h305YFJjFVDaaJ76Ib6 udDogMTBwdCBU yN9vfyrnn0nxhoogKsKwL XLyWPl5ZUd2GDBxkHvrCk DkWRR3AjG3SJZ1zHSqbA7 tmCcqvcarmT9j Oyc+K06xuQ9oPSR7HPO1e xekJKLicnWhSM33RA05Z3 RyPjwvdGFibGU+PGRpdiB qeMfvJN8qNqHc u2beh2PeSTcfD2WoYKBaX RuuAbc4TMNvGVW5mNA0cY 4hWFKsYOeyo6L9wHS1G2W hpwTtfz7my3fk EQXvVItcI20miUPkp4J7O ZGngEQ2QPFyfNbcNtOcpF 93Oyc+MPIznUgtu7AkZgh hv7vkn3ucpGa1 HhOnGWHghwAbqDzjKHV8c 2PyWx14J76kOBosNFHiRF SaDGUkCSDwiZuwrf9pbS6 wIi8+PGNvbCB3 lYH3kI9lXFDbTvU6AFtdW 885JiLdpGZhGmfxr6qkh5 xttTt1CdLtROCxywXklFf qZIM6v3WaFu84 O36lOHlcAUIhJZOgSWSjP LAxwAmfgn7ypF0nJu2+PC 9yg4cwrr74gC22gNT+PHR aWON7lFvdFUhh XGQzjR6gCZqjDjI8JXUtF qSgrD61tBMgEGlrZx2tbN ajoLgqKG6zNQFjagmsy69 1OkBjs3cvFBZb hIVsMZhhEEN7K10zs6L6M GZaDPCxQGO6eYH3aN4wrM lnbjogbGVmdDsgdmVydGl zPDydRCqrW842 IHRvcDsnPlBhdGllbnQgT vNmIDx8V3QsIge3ICNnqC ttSJ3zaDSeWBrlQh1irQk hbPbhGV5aSUKa kznmo746JvUia3fcPETzw BCzXYcfUNQ2B47kv5Y6XO EyZHQlQKY3aXN9tH8icJg nbjogbGVmdDsg plIalNqkMSnyXJgdF996A HRvcDsnPkJpcnRoIERhdG O2UJ71DX48pDWzj5G8lLS 9S0ZrLFUutruc cgzogZQ8KXYsXCZytR07B c8doMkaLu2xSTQlHUK1OM JmwCWcC6MsiU4jUsWfCRN tSCHkY0KexAZl OMnvY503DWjcOjB8PLIpj hPyU5AiNNOupSoxRiC1j8 G1Xg3BM1J9EG17HK37bON im4G2qDB9X4Kv GISjbqubvbgtdFR3UNIaH WGuwL92Ig3ncJijAv6dZK GkICY9RDNzwTMhZ5CzyA9 yOiAjMDAwMDAw X8QriCRcWQktA413XAzdC nZ5XEDchwQhZ7ZkKSRlsN vxXkI5c4B9Rn6JMZq7GW6 9GS83nROcb3B0 eDL2J4JyVSHdfxzmioydt VG4VJPxNFHzbC92Bv3tdN wvNa8xFXKrTAD1TARudRQ eS7KzrF7nXbXu WSMoOAXkC0KzxCNcIKgaS 776UAjtDeN9ZVYlftTpG2 MuRQGtxPnvNfA3z8Y7Fs9 YNJJpUY86CEV0 lCL4WY93AP05D0MhPluom GFibGU+PHRhYmxlIHdpZH RoPScxMDAlJyBzdHlsZT0 hQc8qGFCiDIGv aGofhTUuQvQpe2tsNMNxM OsdEH3vfChmR8DsxAP4FL Ugs4o8Xo27B78lH3SoaEJ +MGBrrTF4bDN1 fW1mYiHwKmM1MInlX868D yBfcSMiNoyzr1ouq2qdiD o8EnT2TDTzhdNrbGpkGSI 4q5IgWu72P03p IHdpZHRoPSIxNSUiIHZhb Nywzx9heD1xTp3+PGNvbC K1cIW5pR2aJpWpShU2IBq eU464MhOytPEz Dxvdr2lnk9cxoTs8YsJvE RCymjUadUbcXAW4g8KbWg 87I0CsoOgbo2SgIrc1aj8 1hBAiy4R9nBJ0 C6KuZMLqosqhqQVxlWuoL J4eGPHpogzvXIHuoG7cLC NvU4r0MbBtKxL1OGobX4U pxqU0NBNngXDl MSxpKMM6T13fa8P1EDJjU GLcBAQ6hZO1cW7dtZqywo ogbGVmdDsgdmVydGljYWw wNPedC757WWWy qBibOUBqyQ1bEDCoqMNyo SmrQZ5eDBUsnxeuEmjEEN xTLCBTSEVSUlkgRDwvdGQ +UXGwGWZ3rElg TMckAEHsoT2cBVUuD1f4G gKnYlT0JGpqJ0RhLDFrxy gxHb94jG0mQpHyFdI3XAh pG2DifqV6BVZd zFQjRGwpYBS4D57na7G7B PZiGFUiVSS2qZB2qA4vfP lnbjogbGVmdDsgdmVydGl iHEgiFEgmT161 BMQhlMcdSjJ6FcDoOlA9O JP5Q5UjYzl4CBFhsZlaSF 8tiCCiSJfaNo6saFnbqDr qEL5jMPNaabzf JHLsfB6xOXXuhUDgdSdqX A6xMQCgdfjrn745KdVqAC F6THYudYAnD1TzvZ5dXqC mUPAzYVFvN5Id qHPwPAcrW269MIrpXsQ2D LYayaHiT5FaTEDesNbnTj O2a3P5Wu19FqMBGOUrkeq vdGQ+PHRkIHN0 sMqlBSssQNFzsF5hWSLlD 3x2PpTnSjR7AXieO3YeXN SijrtvHs45vZ5mNaUhNiW 6EVlhT2McrbB6 YNIwfUTiEJkqHIX0Y89ky 0A6JLDsYRWgCDP2lXF3nW 1hbGlnbjogbGVmdDsgdmV ydGljYWwtYWxp P389JMSmtSrpHjGthYUfM TwvdGQ+TSRvUAD5hJqoVZ rsTYJbrF2cKNOfW6f3KxI rTsR2ARpgR4Ij MKRusyolPm79yN8iMhNsV eB8EDlcN0PsmtA8TPNdcF EoBIazEFK5V60ss4V2NVG cXZLaUZP9yZL8 nE9obLwhmhuixTMguCcan iUinBxpZBhaODttH198EM QomIneAlHowH1pTSJtSTi lbWVudDwvdGQ+ AS75ma15Q9YnTdnuZfm2I XXpJRU6bQU4iV6vSDMtBA kfw9Y1aOT6T5GwqbIbgo9 rk4zcCPTbKKel Z54uhNVwl9I1JMNoePD7Q YAcyBmvPcSazO75Qrh+PG PpbOatr8MnEjufd9yli8p duNo6XbIqNVPs btPmvUvnGCB7j7AaGm76P 29sIHdpZHRoPSIzMCUiIH IjgYdqjn0vzA0gVi6+PGN rvMG2jMD0dG3e GbLtVuQ8LLckI827MeWbg YNxPnche9uyc3kfhGt1Kc LsQKMyzuIapEseRWI1b2R kAn32T5QcjWtp o9RgDzj7nj78rCXdm9Q6o GS2J7JiUTOyijitkUJbhK dwGQ5rXKCvfnwjYYOtvK0 pGKMnO1n8PcEu NuN0YIqcO0KwkxG9VKUlw HDxMNPawZPAwI0ktlhar5 pbupleHqLmAWAvLPe7KSu 0LWFsaWduOiBs CJQ7ItV1SNJ5qHDgoM2fy FxcldbjvY8cDqi+UGh5c2 kwvWHsMB8xgAV1DH36OA8 2bUWsi8C0vKR5 D5AtXFNvudgclurtjSK1G XPiWTSljO96Cb3pjTlpTd 2hHUEwXNG3EEXvvLSzJ0C pbZ6nOdAaLMRo YILoT0GnbLAkNHcgQ414A FxkPpZ5WHMuosQxZ1UiJY YsxOwyWiX8d9H2Pv2SQD7 1ZN12ZW96iMUh m2A2tLT8R7XaHDOflxust mwjhBV0NKGrGUGwdD90Ad 6ytZkgTg7wQBEaKRP7YET bxLAqF1QonZ3o OyGbBAKiKMYxH0RojAIfP FkuD496AFleGeW0PPKgfq VkC8DuJYDuwLalBjZ6r7D 9Kb0SRf50CX41 MU81pXOri7O6eZF9N4CsO MAcnpaikumycWQ6XTOyAF QpeX68Ml0xfYjoRd5lKPT vADV3HFBqpQFb T1JbeF9qLfAtMYKyDCTlJ 4QrmTQcURpeG133VCtwEi C1DYEaqgCbG6GiGTTfaGp qSvJ5r1Z9Vu8C KCvszjy1G6QjVrldvSW+P U01NGCnSL95cGYumEUni0 qjwUy3ZfCjQTMaIEM2uNr bYMryc8OkABZs Y29s (more content not included)... Normal [facility] Referrals Officeon 3 Referrals Office [id number]# 1.00CD:127 [facility] Consent for Treatmenton 06-12 Consent for Treatment [id number]# 1.00CD:127 Normal [facility] Consent for Treatment [id number]#1 .00CD:127 Normal [facility] Consultation Noteon 07-04-19 Consultation Note Patient: DIANN [...] gave her 50% relief. She intermittently uses Quemado 5/325 twice daily as needed pain. She can only walk around the grocery store if she has a cart. Previous physical therapy did not help. Previous injection did give some relief but not quite enough. She did see Dr. Christ Rodriguez. He had ordered the MRI of the cervical spine. Unfortunate, she does not want to travel all the way to [facility] to see him. She wonders if there is somebody locally she can see if it is needed. Health Status Allergies: Allergic Reactions (Selected) Severity Not Documented Amoxicillin- Hives., Allergies (1) Active Reaction amoxicillin Hives Current medications: (Selected) Prescriptions Prescribed Levsin 0.125 mg SL Tab: 0.125 mg = 1 tab(s), Oral, QID, PRN Spasm, # 20 tab(s), Refills(s) 0, [id number], cm, 10/31/21 16:20:00 EDT, Height/Length Dosing, 97.9, kg, 10/31/21 16:20:00 EDT, Weight Dosing Quemado 325 mg-5 mg oral tablet: 1 tab(s), Oral, BID as needed for pain, 60 tab(s), Refill(s) 0, [id number], cm, 06/02/22 12:59:00 EST, Height/Length Dosing, 101.6, kg, 03/27/22 15:44:00 EST, Weight Dosing Quemado 325 mg-5 mg oral tablet: 1 tab(s), Oral, BID as needed for pain, 60 tab(s), Refill(s) 0, [id number], cm, 09/18/21 13:15:00 EDT, Height/Length Dosing, 95.2, kg, 05/31/21 12:51:00 EST, Weight Dosing Quemado 325 mg-5 mg oral tablet: 1 tab(s), Oral, BID as needed for pain, 60 tab(s), Refill(s) 0, [facility], 158, cm, 07/04/22 14:50:00 EST, Height/Length Dosing, 99, kg, 07/04/22 14:50:00 EST, Weight Dosing gabapentin 300 mg Cap: See Instructions, 1 cap(s) Oral Qam 2 caps QHS, # 270 cap(s), Refills(s) 0, Pharmacy: [facility], 158, cm, 05/31/21 12:51:00 EST, Height/Length Dosing, 95.2, kg, 05/31/21 12:51:00 EST, Weight Dosing gabapentin 300 mg Cap: See Instructions, one cap in AM, 2 caps at bedtime., # 270 cap(s), Refills(s) 0, Pharmacy: [facility], 158, cm, 04/30/22 8:13:00 [...] Problems Chronic back pain / SNOMED CT 956523156 / Confirmed Osteoarthritis / SNOMED CT 9979319879 / Confirmed Hematuria / SNOMED CT 974922728 / Confirmed Anemia / SNOMED CT 257460769 / Confirmed HTN (hypertension) / SNOMED CT 5568246247 / Confirmed Glaucoma / SNOMED CT 84803667 / Confirmed Hypothyroid / SNOMED CT 01771086 / Confirmed C. difficile diarrhea / SNOMED CT 6816577313 / Confirmed Anemia / SNOMED CT 961465042 / Confirmed Arthritis / SNOMED CT 5236637 / Confirmed Heart disease / SNOMED CT 65399925 / Confirmed Hypertension / SNOMED CT 2206027332 / Confirmed Hyperlipidemia / SNOMED CT 57323642 / Confirmed Sleep apnea / SNOMED CT 347544018 / Confirmed Long-term curren (more content not included)... Normal [facility] Comment on above: Result Comment: Elec tronically Signed By: Josue SOMMERS, Chad\.br\Date and Time Signed: 07/04/22 19:27 EST In office Testingon 07-04-19 23 In office Testing [id number]# 1.00CD:127 Normal [facility] Office/Clinic Note-Physician on 07-04-2022 Office/Clinic Note-Physician [id number]# 1.00CD:127 Normal [facility] SUPERVISOR 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 Drug Screen-LCOrdered By : Celeste Lomax on 07-04-2022 Test Name SUPERVISOR 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 Invalid Interpretation Code [facility] Comment on above: Performed By: #### 1 [id number] #### [facility] [address] [place] [id number] Patient Correspondenceon Patient Correspondence [id number]# 1.00CD:127 Normal [facility] Patient History Officeon Patient History Office [id number]# 1.00CD:127 Normal [facility] CBC AUTO DIFFon 06-06-2022 BASO # 0.1 103/ul Normal 0.0-0.1 [facility] Comment on above: Performed By: #### C BC #### [facility] [address] [place] [address] Dr. Sherry Sanches Basophils/100 WBC (Bld) 0.8 % Normal 0.2-2.0 [facility] Comment on above: Performed By: #### C BC #### [facility] [address] [address] [address] Sherry Sanches EO # 0.2 103/ul Normal 0.0-0.7 [facility] Comment on above: Performed By: #### C BC #### [facility] [address] [address] [address] Sherry Sanches Eosinophils/100 WBC (Bld) 3.0 % Normal 0.9-7.0 [facility] Comment on above: Performed By: #### C BC #### [facility] [address] [address] [address] Sherry Sanches Erythrocyte distribution width (RBC) [Ratio] 13.5 % Normal 11.0-15.0 [facility] Comment on above: Performed By: #### C BC #### [facility] [address] [place] [address] Dr. Sherry Sanches Hematocrit (Bld) [Volume fraction] 34.7 % Critically low 36.0-48.0 [facility] Comment on above: Performed By: #### C BC #### [facility] [address] [place] [address] Dr. Sherry Sanches Hemoglobin (Bld) [Mass/Vol] 12.1 g/dL Normal 12.0-16.0 [facility] Comment on above: Performed By: #### C BC #### [facility] [address] [place] [address] Dr. Sherry Sanches IG # 0.04 10e3/ul Critically high 0.00-0.03 [facility] Comment on above: Performed By: #### C BC #### [facility] [address] [address] [address] Sherry Sanches IG % 0.7 % Critically high 0.0-0.5 [facility] Comment on above: Performed By: #### C BC #### [facility] [address] [place] [address] Dr. Sherry Sanches LYMPH # 1.4 103/ul Normal 1.2-3.8 [facility] Comment on above: Performed By: #### C BC #### [facility] [address] [place] [address] Dr. Sehrry Sanches Lymphocytes/100 WBC (Bld) 23.9 % Normal 20.5-60.0 [facility] Comment on above: Performed By: #### C BC #### [facility] [address] [place] [address] Dr. Sherry Sanches MANUAL DIFF REQ NO Normal [facility] Comment on above: Performed By: #### C BC #### [facility] [address] [place] [address] Dr. Sherry Sanches MCH (RBC) [Entitic mass] 31.2 pg Normal 26.7-34.0 [facility] Comment on above: Performed By: #### C BC #### [facility] [address] [place] [address] Dr. Sherry Sanches MCHC (RBC) [Mass/Vol] 34.9 g/dL Normal 29.9-35.2 [facility] Comment on above: Performed By: #### C BC #### [facility] [address] [place] [address] Dr. Sherry Sanches MCV (RBC) [Entitic vol] 89.4 fL Normal 81.0-99.0 [facility] Comment on above: Performed By: #### C BC #### [facility] [address] [place] [address] Dr. Sherry Sanches MONO # 0.8 103/ul Normal 0.3-0.8 [facility] Comment on above: Performed By: #### C BC #### [facility] [address] [place] [address] Dr. Sherry Sanches Monocytes/100 WBC (Bld) 13.8 % Critically high 1.7-12.0 [facility] Comment on above: Performed By: #### C BC #### [facility] [address] [place] [address] Dr. Sherry Sanches NEUT # 3.5 103/ul Normal 1.4-6.5 [facility] Comment on above: Performed By: #### C BC #### [facility] [address] [address] [address] Sherry Sanches Neutrophils/100 WBC (Bld) 57.8 % Normal 43.0-75.0 [facility] Comment on above: Performed By: #### C BC #### [facility] [address] [address] [address] Sherry Sanches Platelet mean volume (Bld) [Entitic vol] 8.8 fL Critically low 9.5-13.5 [facility] Comment on above: Performed By: #### C BC #### [facility] [address] [address] [address] Sherry Sanches PLT 259 103/ul Normal 150-450 [facility] Comment on above: Performed By: #### C BC #### [facility] [address] [place] [address] Dr. Sherry Sanches RBC 3.88 106/ul Critically low 4.20-5.40 [facility] Comment on above: Performed By: #### C BC #### [facility] [address] [place] [address] Dr. Sherry Sanches WBC 6.0 103/ul Normal 4.0-11.0 [facility] Comment on above: Performed By: #### C BC #### [facility] [address] [place] [address] Dr. Sherry Sanches MAGNESIUMon 06-06-2022 Magnesium [Mass/Vol] 2.1 mg/dL Normal 1.8-2.4 [facility] Comment on above: Performed By: #### H STROPN #### [facility] [address] [place] [address] Dr. Sherry Sanches PHOSPHORUSon 06-06-2022 Phosphate [Mass/Vol] 4.1 mg/dL Normal 2.6-4.7 [facility] Comment on above: Performed By: #### H STROPN #### [facility] [address] [place] [address] Dr. Sherry Sanches PROF 14(COMP METB)on 023 Albumin [Mass/Vol] 4.0 g/dL Normal 3.4-5.0 [facility] Comment on above: Performed By: #### H STROPN #### [facility] [address] [place] [address] Dr. Sherry Sanches Albumin/Globulin [Mass ratio] 1.3 {ratio} Normal [facility] Comment on above: Performed By: #### H STROPN #### [facility] [address] [address] [address] Sherry Sanches ALP [Catalytic activity/Vol] 83 U/L Normal 46-116 [facility] Comment on above: Performed By: #### H STROPN #### [facility] [address] [address] [address] Sherry Sanches ALT [Catalytic activity/Vol] 19 U/L Normal 14-59 [facility] Comment on above: Performed By: #### H STROPN #### [facility] [address] [place] [address] Dr. Sherry Sanches Anion gap [Moles/Vol] 14.4 mmol/L Normal [facility] Comment on above: Performed By: #### H STROPN #### [facility] [address] [address] [address] Sherry Sanches AST [Catalytic activity/Vol] 16 U/L Normal 15-37 [facility] Comment on above: Performed By: #### H STROPN #### [facility] [address] [place] [address] Dr. Sherry Sanches Bilirubin [Mass/Vol] 0.6 mg/dL Normal 0.2-1.0 [facility] Comment on above: Performed By: #### H STROPN #### [facility] [address] [address] [address] Sherry Sanches Calcium [Mass/Vol] 9.8 mg/dL Normal 8.5-10.1 [facility] Comment on above: Performed By: #### H STROPN #### [facility] [address] [place] [address] Dr. Sherry Sanches Chloride [Moles/Vol] 104 mmol/L Normal 98-107 [facility] Comment on above: Performed By: #### H STROPN #### [facility] [address] [address] [address] Sherry Sanches CO2 [Moles/Vol] 28.7 mmol/L Normal 21.0-32.0 [facility] Comment on above: Performed By: #### H STROPN #### [facility] [address] [address] [address] Sherry Sanches Creatinine [Mass/Vol] 1.37 mg/dL Critically high 0.55-1.02 [facility] Comment on above: Performed By: #### H STROPN #### [facility] [address] [address] [address] Sherry Sanches EGFR-AF ANDORRAN 46 mL/min/1.73m2 Critically low >=60 [facility] Comment on above: Performed By: #### H STROPN #### [facility] [address] [address] [address] Sherry Sanches EGFR-NON AF ANDORRAN 38 mL/min/1.73m2 Critically low >=60 [facility] Comment on above: Performed By: #### H STROPN #### [facility] [address] [address] [address] Sherry Sanches Globulin (S) [Mass/Vol] 3.1 g/dL Normal [facility] Comment on above: Performed By: #### H STROPN #### [facility] [address] [address] [address] Sherry Sanches Glucose [Mass/Vol] 96 mg/dL Normal 74-106 [facility] Comment on above: Performed By: #### H STROPN #### [facility] [address] [address] [address] Sherry Sanches Potassium [Moles/Vol] 4.1 mmol/L Normal 3.5-5.1 [facility] Comment on above: Performed By: #### H STROPN #### [facility] [address] [address] [address] Sherry Sanches Protein [Mass/Vol] 7.1 g/dL Normal 6.4-8.2 [facility] Comment on above: Performed By: #### H STROPN #### [facility] [address] [address] [address] Sherry Sanches Sodium [Moles/Vol] 143 mmol/L Normal 136-145 [facility] Comment on above: Performed By: #### H STROPN #### [facility] [address] [address] [address] Sherry Sanches Urea nitrogen [Mass/Vol] 31.0 mg/dL Critically high 7.0-18.0 [facility] Comment on above: Performed By: #### H STROPN #### [facility] [address] [address] [address] Sherry Sanches Urea nitrogen/Creatinine [Mass ratio] 22.6 mg/mg Normal [facility] Comment on above: Performed By: #### H STROPN #### [facility] [address] [address] [address] Sherry Sanches CULTURE URINEon 05-22-2022 CULTURE URINE Culture Observations : GREATER THAN TWO ORGANISMS PRESENT. PLEASE RESUBMIT CLEAN CATCH MID-STREAM URINE IF CLINICALLY INDICATED. Normal [facility] Comment on above: Performed By: #### U RCX ####[facility] [id number] [address]Dr. Sherry Sanches UA (CLEAN/CATCH) MICROSCOPIC IF INDICATEon 05-20-2022 Bilirubin Ql (U) Negative Normal NEGATIVE [facility] Comment on above: Performed By: #### C BC #### [facility] [address] [address] [address] Sherry Sanches Clarity (U) CLEAR Normal CLEAR [facility] Comment on above: Performed By: #### C BC #### [facility] [address] [address] [address] Sherry Sanches Color (U) LT. YELLOW Normal YELLOW [facility] Comment on above: Performed By: #### C BC #### [facility] [address] [address] [address] Sherry Sanches Glucose Ql (U) Negative Normal NEGATIVE [facility] Comment on above: Performed By: #### C BC #### [facility] [address] [place] [address] Dr. Sherry Sanches Hemoglobin Ql (U) Negative Normal NEGATIVE [facility] Comment on above: Performed By: #### C BC #### [facility] [address] [place] [address] Dr. Sherry Sanches Ketones Ql (U) Negative Normal NEGATIVE [facility] Comment on above: Performed By: #### C BC #### [facility] [address] [place] [address] Dr. Sherry Sanches LEUKOCYTES SMALL Abnormal NEGATIVE [facility] Comment on above: Performed By: #### C BC #### [facility] [address] [place] [address] Dr. Sherry Sanches Nitrite Ql (U) Negative Normal NEGATIVE [facility] Comment on above: Performed By: #### C BC #### [facility] [address] [place] [address] Dr. Sherry Sanches pH (U) 5.0 [pH] Normal 5-9 [facility] Comment on above: Performed By: #### C BC #### [facility] [address] [place] [address] Dr. Sherry Sanches SPEC GRAVITY 1.020 Normal 1.005-<=1.02 5 [facility] Comment on above: Performed By: #### C BC #### [facility] [address] [place] [address] Dr. Sherry Sanches UA PROTEIN Negative Normal NEGATIVE/ TRACE [facility] Comment on above: Performed By: #### C BC #### [facility] [address] [place] [address] Dr. Sherry Sanches UR MICRO IND INDICATED Normal [facility] Comment on above: Performed By: #### C BC #### [facility] [address] [place] [address] Dr. Sherry Sanches Urobilinogen Qn (U) 0.2 {Ellen'U}/dL Normal 0.2 - 1. 0 [facility] Comment on above: Performed By: #### C BC #### [facility] [address] [place] [address] Dr. Sherry Sanches URINE MICROSCOPIC ONLYon BACTERIA TRACE Abnormal NONE SEEN [facility] Comment on above: Performed By: #### C BC #### [facility] [address] [place] [address] Dr. Sherry Sanches Bacteria identified Cx Nom (U) CX ALREADY ORDERED Normal [facility] Comment on above: Performed By: #### C BC #### [facility] [address] [place] [address] Dr. Sherry Sanches CAST NONE SEEN Normal NONE SEEN [facility] Comment on above: Performed By: #### C BC #### [facility] [address] [place] [address] Dr. Sherry Sanches Crystals LM Nom (Urine sed) NONE SEEN Normal NONE SEEN [facility] Comment on above: Performed By: #### C BC #### [facility] [address] [place] [address] Dr. Sherry Sanches Epithelial cells LM Ql (Urine sed) FEW Abnormal NONE SEEN /RARE [facility] Comment on above: Performed By: #### C BC #### [facility] [address] [place] [address] Dr. Sherry Sanches MUCOUS SMALL Abnormal NONE SEEN [facility] Comment on above: Performed By: #### C BC #### [facility] [address] [place] [address] Dr. Sherry Sanches RBC NONE SEEN Abnormal 0-2 [facility] Comment on above: Performed By: #### C BC #### [facility] [address] [place] [address] Dr. Sherry Sanches WBC 2-5 Abnormal NONE SEEN [facility] Comment on above: Performed By: #### C BC #### [facility] [address] [place] [address] Dr. Sherry Sanches US THYROIDon 05-07-2022 US [...] LONNIE MCCORMACK Date: 2022-05-07 16:17 Normal [facility] THYROGLOBULIN ABon Thyroglobulin Antibody <1.0 Normal 0.0-0.9 [facility] Comment on above: Result Comment: Thyr oglobulin Antibody measured by Yoli Chilton Methodology Performed By: #### C BC #### [facility] [address] [place] [address] Dr. Sherry Sanches TSHon 04-24-2022 TSH 2.515 uIU/mL Normal 0.358-3.740 [facility] Comment on above: Performed By: #### T SH #### [facility] [address] [place] [address] Dr. Sherry Sanches CULTURE URINEon 04-07-2022 CULTURE URINE Culture Observations : HERB TO FOLLOW. Isolate 1 Streptococcus agalactiae 50,000 cfu/mL of Normal [facility] Comment on above: Performed By: #### U RCX ####[facility] [id number] [address]Dr. Sherry Sanches BNPon 03-31-2022 Natriuretic peptide B (Bld) [Mass/Vol] 98.0 pg/mL Normal <=900.0 [facility] Comment on above: Performed By: #### C VDAGS #### [facility] [address] [place] [address] Dr. Sherry Sanches CBC AUTO DIFFon 03-31-2022 BASO # 0.0 103/ul Normal 0.0-0.1 [facility] Comment on above: Performed By: #### C BC #### [facility] [address] [place] [address] Dr. Sherry Sanches Basophils/100 WBC (Bld) 0.6 % Normal 0.2-2.0 [facility] Comment on above: Performed By: #### C BC #### [facility] [address] [place] [address] Dr. Sherry Sanches EO # 0.2 103/ul Normal 0.0-0.7 [facility] Comment on above: Performed By: #### C BC #### [facility] [address] [place] [address] Dr. Sherry Sanches Eosinophils/100 WBC (Bld) 3.3 % Normal 0.9-7.0 [facility] Comment on above: Performed By: #### C BC #### [facility] [address] [place] [address] Dr. Sherry Sanches Erythrocyte distribution width (RBC) [Ratio] 13.7 % Normal 11.0-15.0 [facility] Comment on above: Performed By: #### C BC #### [facility] [address] [place] [address] Dr. Sherry Sanches Hematocrit (Bld) [Volume fraction] 37.7 % Normal 36.0-48.0 [facility] Comment on above: Performed By: #### C BC #### [facility] [address] [place] [address] Dr. Sherry Sanches Hemoglobin (Bld) [Mass/Vol] 12.4 g/dL Normal 12.0-16.0 [facility] Comment on above: Performed By: #### C BC #### [facility] [address] [place] [address] Dr. Sherry Sanches IG # 0.01 10e3/ul Normal 0.00-0.03 [facility] Comment on above: Performed By: #### C BC #### [facility] [address] [place] [address] Dr. Sherry Sanches IG % 0.2 % Normal 0.0-0.5 [facility] Comment on above: Performed By: #### C BC #### [facility] [address] [place] [address] Dr. Sherry Sanches LYMPH # 1.3 103/ul Normal 1.2-3.8 [facility] Comment on above: Performed By: #### C BC #### [facility] [address] [place] [address] Dr. Sherry Sanches Lymphocytes/100 WBC (Bld) 20.5 % Normal 20.5-60.0 [facility] Comment on above: Performed By: #### C BC #### [facility] [address] [place] [address] Dr. Sherry Sanches MANUAL DIFF REQ NO Normal [facility] Comment on above: Performed By: #### C BC #### [facility] [address] [place] [address] Dr. Sherry Sanches MCH (RBC) [Entitic mass] 30.2 pg Normal 26.7-34.0 [facility] Comment on above: Performed By: #### C BC #### [facility] [address] [place] [address] Dr. Sherry Sanches MCHC (RBC) [Mass/Vol] 32.9 g/dL Normal 29.9-35.2 [facility] Comment on above: Performed By: #### C BC #### [facility] [address] [place] [address] Dr. Sherry Sanches MCV (RBC) [Entitic vol] 91.7 fL Normal 81.0-99.0 [facility] Comment on above: Performed By: #### C BC #### [facility] [address] [place] [address] Dr. Sherry Sanches MONO # 0.7 103/ul Normal 0.3-0.8 [facility] Comment on above: Performed By: #### C BC #### [facility] [address] [place] [address] Dr. Sherry Sanches Monocytes/100 WBC (Bld) 10.5 % Normal 1.7-12.0 [facility] Comment on above: Performed By: #### C BC #### [facility] [address] [place] [address] Dr. Sherry Sanches NEUT # 4.1 103/ul Normal 1.4-6.5 [facility] Comment on above: Performed By: #### C BC #### [facility] [address] [place] [address] Dr. Sherry Sanches Neutrophils/100 WBC (Bld) 64.9 % Normal 43.0-75.0 [facility] Comment on above: Performed By: #### C BC #### [facility] [address] [address] [address] Sherry Sanches Platelet mean volume (Bld) [Entitic vol] 8.4 fL Critically low 9.5-13.5 [facility] Comment on above: Performed By: #### C BC #### [facility] [address] [address] [address] Sherry Sanches PLT 270 103/ul Normal 150-450 [facility] Comment on above: Performed By: #### C BC #### [facility] [address] [address] [address] Sherry Sanches RBC 4.11 106/ul Critically low 4.20-5.40 [facility] Comment on above: Performed By: #### C BC #### [facility] [address] [place] [address] Dr. Sherry Sanches WBC 6.4 103/ul Normal 4.0-11.0 [facility] Comment on above: Performed By: #### C BC #### [facility] [address] [place] [address] Dr. Sherry Sanches LIPID PROFILEon 03-31-2022 CHOL-HDL RATIO NORM SEE BELOW Normal [facility] Comment on above: Result Comment: 3.3 - 4.4 LOW RISK 4.4 - 7.1 AVERAGE RISK 7.1 - 11.0 MODERATE RISK >11.0 HIGH RISK Performed By: #### C VDAGS #### [facility] [address] [place] [address] Dr. Sherry Sanches Cholesterol [Mass/Vol] 174 mg/dL Normal <=200 [facility] Comment on above: Performed By: #### C VDAGS #### [facility] [address] [address] [address] Sherry Sanches Cholesterol in HDL [Mass/Vol] 71 mg/dL Critically high 40-60 [facility] Comment on above: Performed By: #### C VDAGS #### [facility] [address] [place] [address] Dr. Sherry Sanches Cholesterol in LDL [Mass/Vol] 59.6 mg/dL Normal [facility] Comment on above: Performed By: #### C VDAGS #### [facility] [address] [address] [address] Sherry Sanches Cholesterol.total/Cho lesterol in HDL [Mass ratio] 2.5 {ratio} Normal [facility] Comment on above: Performed By: #### C VDAGS #### [facility] [address] [address] [address] Sherry Sanches HDL NORMAL > or = 60 mg/dl - LO W CARDIOVASCULAR RISK <40 mg/dl - HIGH CARDIOVASCULAR RISK Normal [facility] Comment on above: Performed By: #### C VDAGS #### [facility] [address] [address] [address] Sherry Sanches LDL CALC NORMAL SEE BELOW Normal [facility] Comment on above: Result Comment: <100 mg/dl OPTIMAL 100 - 129 mg/dl NEAR OR ABOVE OPTIMAL 130 - 159 mg/dl BORDERLINE HIGH 160 - 189 mg/dl HIGH >190 mg/dl VERY HIGH Performed By: #### C VDAGS #### [facility] [address] [place] [address] Dr. Sherry Sanches Triglyceride [Mass/Vol] 217 mg/dL Critically high <=150 [facility] Comment on above: Performed By: #### C VDAGS #### [facility] [address] [place] [address] Dr. Sherry Sanches VLDL CALC 43.4 mg/dL Normal [facility] Comment on above: Performed By: #### C VDAGS #### [facility] [address] [address] [address] Sherry Sanches PROF CHEM 8 (BAS METB)on Anion gap [Moles/Vol] 13.8 mmol/L Normal [facility] Comment on above: Performed By: #### C VDAGS #### [facility] [address] [place] [address] Dr. Sherry Sanches Calcium [Mass/Vol] 9.9 mg/dL Normal 8.5-10.1 [facility] Comment on above: Performed By: #### C VDAGS #### [facility] [address] [address] [address] Sherry Sanches Chloride [Moles/Vol] 101 mmol/L Normal 98-107 [facility] Comment on above: Performed By: #### C VDAGS #### [facility] [address] [address] [address] Sherry Sanches CO2 [Moles/Vol] 29.8 mmol/L Normal 21.0-32.0 [facility] Comment on above: Performed By: #### C VDAGS #### [facility] [address] [address] [address] Sherry Sanches Creatinine [Mass/Vol] 1.58 mg/dL Critically high 0.55-1.02 [facility] Comment on above: Performed By: #### C VDAGS #### [facility] [address] [address] [address] Sherry Sanches EGFR-AF ANDORRAN 39 mL/min/1.73m2 Critically low >=60 [facility] Comment on above: Performed By: #### C VDAGS #### [facility] [address] [address] [address] Sherry Sanches EGFR-NON AF ANDORRAN 32 mL/min/1.73m2 Critically low >=60 [facility] Comment on above: Performed By: #### C VDAGS #### [facility] [address] [address] [address] Sherry Sanches Glucose [Mass/Vol] 115 mg/dL Critically high 74-106 [facility] Comment on above: Performed By: #### C VDAGS #### [facility] [address] [address] [address] Sherry Sanches Potassium [Moles/Vol] 4.6 mmol/L Normal 3.5-5.1 [facility] Comment on above: Performed By: #### C VDAGS #### [facility] [address] [address] [address] Sherry Sanches Sodium [Moles/Vol] 140 mmol/L Normal 136-145 [facility] Comment on above: Performed By: #### C VDAGS #### [facility] [address] [place] [address] Dr. Sherry Sanches Urea nitrogen [Mass/Vol] 26.0 mg/dL Critically high 7.0-18.0 [facility] Comment on above: Performed By: #### C VDAGS #### [facility] [address] [place] [address] Dr. Sherry Sanches Urea nitrogen/Creatinine [Mass ratio] 16.5 mg/mg Normal [facility] Comment on above: Performed By: #### C VDAGS #### [facility] [address] [place] [address] Dr. Sherry Sanches CBC AUTO DIFFon 02-16-2022 BASO # 0.0 103/ul Normal 0.0-0.1 [facility] Comment on above: Performed By: #### T SH #### [facility] [address] [place] [address] Dr. Sherry Sanches Basophils/100 WBC (Bld) 0.5 % Normal 0.2-2.0 [facility] Comment on above: Performed By: #### T SH #### [facility] [address] [place] [address] Dr. Sherry Sanches EO # 0.2 103/ul Normal 0.0-0.7 [facility] Comment on above: Performed By: #### T SH #### [facility] [address] [place] [address] Dr. Sherry Sanches Eosinophils/100 WBC (Bld) 3.9 % Normal 0.9-7.0 [facility] Comment on above: Performed By: #### T SH #### [facility] [address] [place] [address] Dr. Sherry Sanches Erythrocyte distribution width (RBC) [Ratio] 13.2 % Normal 11.0-15.0 [facility] Comment on above: Performed By: #### T SH #### [facility] [address] [place] [address] Dr. Sherry Sanches Hematocrit (Bld) [Volume fraction] 31.0 % Critically low 36.0-48.0 [facility] Comment on above: Performed By: #### T SH #### [facility] [address] [address] [address] Sherry Sanches Hemoglobin (Bld) [Mass/Vol] 9.9 g/dL Critically low 12.0-16.0 [facility] Comment on above: Performed By: #### T SH #### [facility] [facility] [address] [address] [address] Sherry Sanches IG # 0.05 10e3/ul Critically high 0.00-0.03 [facility] Comment on above: Performed By: #### T SH #### [facility] [address] [address] [address] Sherry Sanches IG % 0.8 % Critically high 0.0-0.5 [facility] Comment on above: Performed By: #### T SH #### [facility] [address] [place] [address] Dr. Sherry Sanches LYMPH # 0.7 103/ul Critically low 1.2-3.8 [facility] Comment on above: Performed By: #### T SH #### [facility] [address] [address] [address] Sherry Sanches Lymphocytes/100 WBC (Bld) 12.0 % Critically low 20.5-60.0 [facility] Comment on above: Performed By: #### T SH #### [facility] [address] [address] [address] Sherry Sanches MANUAL DIFF REQ NO Normal [facility] Comment on above: Performed By: #### T SH #### [facility] [address] [address] [address] Sherry Sanches MCH (RBC) [Entitic mass] 30.0 pg Normal 26.7-34.0 [facility] Comment on above: Performed By: #### T SH #### [facility] [address] [place] [address] Dr. Sherry Sanches MCHC (RBC) [Mass/Vol] 31.9 g/dL Normal 29.9-35.2 [facility] Comment on above: Performed By: #### T SH #### [facility] [address] [address] [address] Sherry Sanches MCV (RBC) [Entitic vol] 93.9 fL Normal 81.0-99.0 [facility] Comment on above: Performed By: #### T SH #### [facility] [address] [address] [address] Sherry Sanches MONO # 0.8 103/ul Normal 0.3-0.8 [facility] Comment on above: Performed By: #### T SH #### [facility] [address] [address] [address] Sherry Sanches Monocytes/100 WBC (Bld) 12.2 % Critically high 1.7-12.0 [facility] Comment on above: Performed By: #### T SH #### [facility] [address] [place] [address] Dr. Sherry Sanches NEUT # 4.4 103/ul Normal 1.4-6.5 [facility] Comment on above: Performed By: #### T SH #### [facility] [address] [place] [address] Dr. Sherry Sanches Neutrophils/100 WBC (Bld) 70.6 % Normal 43.0-75.0 [facility] Comment on above: Performed By: #### T SH #### [facility] [address] [place] [address] Dr. Sherry Sanches Platelet mean volume (Bld) [Entitic vol] 9.0 fL Critically low 9.5-13.5 [facility] Comment on above: Performed By: #### T SH #### [facility] [address] [place] [address] Dr. Sherry Sanches PLT 254 103/ul Normal 150-450 [facility] Comment on above: Performed By: #### T SH #### [facility] [address] [place] [address] Dr. Sherry Sanches RBC 3.30 106/ul Critically low 4.20-5.40 [facility] Comment on above: Performed By: #### T SH #### [facility] [address] [address] [address] Sherry Sanches WBC 6.2 103/ul Normal 4.0-11.0 [facility] Comment on above: Performed By: #### T SH #### [facility] [address] [place] [address] Dr. Sherry Sanches PROF CHEM 8 (BAS METB)on Anion gap [Moles/Vol] 12.0 mmol/L Normal [facility] Comment on above: Performed By: #### C VDAGS #### [facility] [address] [place] [address] Dr. Sherry Sanches Calcium [Mass/Vol] 8.1 mg/dL Critically low 8.5-10.1 [facility] Comment on above: Performed By: #### C VDAGS #### [facility] [address] [place] [address] Dr. Sherry Sanches Chloride [Moles/Vol] 102 mmol/L Normal 98-107 [facility] Comment on above: Performed By: #### C VDAGS #### [facility] [address] [place] [address] Dr. Sherry Sanches CO2 [Moles/Vol] 30.3 mmol/L Normal 21.0-32.0 [facility] Comment on above: Performed By: #### C VDAGS #### [facility] [address] [place] [address] Dr. Sherry Sanches Creatinine [Mass/Vol] 1.85 mg/dL Critically high 0.55-1.02 [facility] Comment on above: Performed By: #### C VDAGS #### [facility] [address] [place] [address] Dr. Sherry Sanches EGFR-AF ANDORRAN 32 mL/min/1.73m2 Critically low >=60 [facility] Comment on above: Performed By: #### C VDAGS #### [facility] [address] [place] [address] Dr. Sherry Sanches EGFR-NON AF ANDORRAN 27 mL/min/1.73m2 Critically low >=60 [facility] Comment on above: Performed By: #### C VDAGS #### [facility] [address] [address] [address] Sherry Sanches Glucose [Mass/Vol] 108 mg/dL Critically high 74-106 [facility] Comment on above: Performed By: #### C VDAGS #### [facility] [address] [address] [address] Sherry Sanches Potassium [Moles/Vol] 3.3 mmol/L Critically low 3.5-5.1 [facility] Comment on above: Performed By: #### C VDAGS #### [facility] [address] [address] [address] Sherry Sanches Sodium [Moles/Vol] 141 mmol/L Normal 136-145 [facility] Comment on above: Performed By: #### C VDAGS #### [facility] [address] [address] [address] Sherry Sanches Urea nitrogen [Mass/Vol] 27.0 mg/dL Critically high 7.0-18.0 [facility] Comment on above: Performed By: #### C VDAGS #### [facility] [address] [address] [address] Sherry Sanches Urea nitrogen/Creatinine [Mass ratio] 14.6 mg/mg Normal [facility] Comment on above: Performed By: #### C VDAGS #### [facility] [address] [address] [address] Sherry Sanches BNPon 02-15-2022 Natriuretic peptide B (Bld) [Mass/Vol] 1135.0 pg/mL Critically high <=900.0 [facility] Comment on above: Performed By: #### B MP, BNP ####[facility] [address] [place], [place] [address]Dr. Sherry Sanches CBC AUTO DIFFon 02-15-2022 BASO # 0.0 103/ul Normal 0.0-0.1 [facility] Comment on above: Performed By: #### C BC ####[facility] [address] [address]. Powell Sanches Basophils/100 WBC (Bld) 0.5 % Normal 0.2-2.0 [facility] Comment on above: Performed By: #### C BC ####[facility] [address] [address]Dr. Sherry Sanches EO # 0.2 103/ul Normal 0.0-0.7 [facility] Comment on above: Performed By: #### C BC ####[facility] [address] [place], [place] [address]Dr. Sherry Sanches Eosinophils/100 WBC (Bld) 3.3 % Normal 0.9-7.0 [facility] Comment on above: Performed By: #### C BC ####[facility] [address] [place], [place] [address]Dr. Sherry Sanches Erythrocyte distribution width (RBC) [Ratio] 13.2 % Normal 11.0-15.0 [facility] Comment on above: Performed By: #### C BC ####[facility] [address] [place], [place] [address]Dr. Sherry Sanches Hematocrit (Bld) [Volume fraction] 30.1 % Critically low 36.0-48.0 [facility] Comment on above: Performed By: #### C BC ####[facility] [address] [place], [place] [address]Dr. Sherry Sanches Hemoglobin (Bld) [Mass/Vol] 9.9 g/dL Critically low 12.0-16.0 [facility] Comment on above: Performed By: #### C BC ####[facility] [address] [place], [place] [address]Dr. Sherry Sanches IG # 0.03 10e3/ul Normal 0.00-0.03 [facility] Comment on above: Performed By: #### C BC ####[facility] [address] [place], [place] [address]Dr. Sherry Sanches IG % 0.5 % Normal 0.0-0.5 [facility] Comment on above: Performed By: #### C BC ####[facility] [address] [address]. Sherry Sanches LYMPH # 0.8 103/ul Critically low 1.2-3.8 [facility] Comment on above: Performed By: #### C BC ####[facility] [address] [address]Dr. Sherry Sanches Lymphocytes/100 WBC (Bld) 13.5 % Critically low 20.5-60.0 [facility] Comment on above: Performed By: #### C BC ####[facility] [address] [address]Dr. Sherry Sanches MANUAL DIFF REQ NO Normal [facility] Comment on above: Performed By: #### C BC ####[facility] [address] [address]Dr. Naysumi Sanches MCH (RBC) [Entitic mass] 30.5 pg Normal 26.7-34.0 [facility] Comment on above: Performed By: #### C BC ####[facility] [address] [place], [place] [address]Dr. Sherry Sanches MCHC (RBC) [Mass/Vol] 32.9 g/dL Normal 29.9-35.2 [facility] Comment on above: Performed By: #### C BC ####[facility] [address] [address]Dr. Sherry Sanches MCV (RBC) [Entitic vol] 92.6 fL Normal 81.0-99.0 [facility] Comment on above: Performed By: #### C BC ####[facility] [address] [address]Dr. Sherry Sanches MONO # 0.8 103/ul Normal 0.3-0.8 [facility] Comment on above: Performed By: #### C BC ####[facility] [address] [place], [place] [address]Dr. Sherry Sanches Monocytes/100 WBC (Bld) 14.3 % Critically high 1.7-12.0 [facility] Comment on above: Performed By: #### C BC ####[facility] [address] [id number]. Naysumi Sanches NEUT # 3.9 103/ul Normal 1.4-6.5 [facility] Comment on above: Performed By: #### C BC ####[facility] [address] [address]Dr. Sherry Sanches Neutrophils/100 WBC (Bld) 67.9 % Normal 43.0-75.0 [facility] Comment on above: Performed By: #### C BC ####[facility] [address] [address]Dr. Sherry Sanches Platelet mean volume (Bld) [Entitic vol] 9.2 fL Critically low 9.5-13.5 [facility] Comment on above: Performed By: #### C BC ####[facility] [address] [address]Dr. Sherry Sanches PLT 242 103/ul Normal 150-450 [facility] Comment on above: Performed By: #### C BC ####[facility] [address] [address]DrBita Sanches RBC 3.25 106/ul Critically low 4.20-5.40 [facility] Comment on above: Performed By: #### C BC ####[facility] [address] [address]DrBita Sanches WBC 5.8 103/ul Normal 4.0-11.0 [facility] Comment on above: Performed By: #### C BC ####[facility] [address] [address]DrBita Sanches PROF CHEM 8 (BAS METB)on Anion gap [Moles/Vol] 11.6 mmol/L Normal [facility] Comment on above: Performed By: #### H STROPN #### [facility] [id number] Sherry Sanches Calcium [Mass/Vol] 8.1 mg/dL Critically low 8.5-10.1 [facility] Comment on above: Performed By: #### H STROPN #### [facility] [address] [address] [address] Sherry Sanches Chloride [Moles/Vol] 102 mmol/L Normal 98-107 [facility] Comment on above: Performed By: #### H STROPN #### [facility] [address] [address] [address] Sherry Sanches Performed By: #### B MP, BNP ####[facility] [address] [address]Dr. Sherry Sanches CO2 [Moles/Vol] 28.8 mmol/L Normal 21.0-32.0 [facility] Comment on above: Performed By: #### H STROPN #### [facility] [address] [address] [address] Sherry Sanches Creatinine [Mass/Vol] 2.04 mg/dL Critically high 0.55-1.02 [facility] Comment on above: Performed By: #### H STROPN #### [facility] [address] [address] [address] Sherry Sanches EGFR-AF ANDORRAN 29 mL/min/1.73m2 Critically low >=60 [facility] Comment on above: Performed By: #### H STROPN #### [facility] [address] [address] [address] Sherry Sanches EGFR-NON AF ANDORRAN 24 mL/min/1.73m2 Critically low >=60 [facility] Comment on above: Performed By: #### H STROPN #### [facility] [address] [address] [address] Sherry Sanches Glucose [Mass/Vol] 99 mg/dL Normal 74-106 [facility] Comment on above: Performed By: #### H STROPN #### [facility] [address] [address] [address] Sherry Sanches Potassium [Moles/Vol] 3.4 mmol/L Critically low 3.5-5.1 [facility] Comment on above: Performed By: #### H STROPN #### [facility] [address] [address] [address] Sherry Sanches Sodium [Moles/Vol] 139 mmol/L Normal 136-145 [facility] Comment on above: Performed By: #### H STROPN #### [facility] [address] [address] [address] Sherry Sanches Performed By: #### B MP, BNP ####[facility] [address] [place], [place] [address]PvBita Sanches Urea nitrogen [Mass/Vol] 32.0 mg/dL Critically high 7.0-18.0 [facility] Comment on above: Performed By: #### H STROPN #### [facility] [address] [address] [address] Sherry Sanches Urea nitrogen/Creatinine [Mass ratio] 15.7 mg/mg Normal [facility] Comment on above: Performed By: #### H STROPN #### [facility] [address] [address] [address] Sherry Sanches Anion gap [Moles/Vol] 10.7 mmol/L Normal [facility] Comment on above: Performed By: #### B MP, BNP ####[facility] [address] [id number] Sanches Calcium [Mass/Vol] 8.3 mg/dL Critically low 8.5-10.1 [facility] Comment on above: Performed By: #### B MP, BNP ####[facility] [address] [address]Dr. Sherry Sanches CO2 [Moles/Vol] 29.5 mmol/L Normal 21.0-32.0 [facility] Comment on above: Performed By: #### B MP, BNP ####[facility] [address] [address]Dr. Sherry Sanches Creatinine [Mass/Vol] 2.20 mg/dL Critically high 0.55-1.02 [facility] Comment on above: Performed By: #### B MP, BNP ####[facility] [address] [id number] Sanches EGFR-AF ANDORRAN 27 mL/min/1.73m2 Critically low >=60 [facility] Comment on above: Performed By: #### B MP, BNP ####[facility] [address] [address]DrBita Sanches EGFR-NON AF ANDORRAN 22 mL/min/1.73m2 Critically low >=60 [facility] Comment on above: Performed By: #### B MP, BNP ####[facility] [address] [address]Dr. Sherry Sanches Glucose [Mass/Vol] 98 mg/dL Normal 74-106 [facility] Comment on above: Performed By: #### B MP, BNP ####[facility] [address] [place], [place] [address]DrBita Sanches Potassium [Moles/Vol] 3.2 mmol/L Critically low 3.5-5.1 [facility] Comment on above: Performed By: #### B MP, BNP ####[facility] [address] [place], [place] [address]Dr. Sherry Sanches Urea nitrogen [Mass/Vol] 33.0 mg/dL Critically high 7.0-18.0 [facility] Comment on above: Performed By: #### B MP, BNP ####[facility] [address] [place], [place] [address]DrBita Sanches Urea nitrogen/Creatinine [Mass ratio] 15.0 mg/mg Normal [facility] Comment on above: Performed By: #### B MP, BNP ####[facility] [address] [place], [place] [address]Dr. Sherry Sanches BNPon 02-14-2022 Natriuretic peptide B (Bld) [Mass/Vol] 1291.0 pg/mL Critically high <=900.0 [facility] Comment on above: Performed By: #### C VDAGS #### [facility] [address] [place] [address] Dr. Sherry Sanches CBC AUTO DIFFon 02-14-2022 BASO # 0.0 103/ul Normal 0.0-0.1 [facility] Comment on above: Performed By: #### T SH #### [facility] [address] [address] [address] Sherry Sanches Basophils/100 WBC (Bld) 0.5 % Normal 0.2-2.0 [facility] Comment on above: Performed By: #### T SH #### [facility] [address] [address] [address] Sherry Sanches EO # 0.3 103/ul Normal 0.0-0.7 [facility] Comment on above: Performed By: #### T SH #### [facility] [address] [place] [address] Dr. Sherry Sanches Eosinophils/100 WBC (Bld) 4.5 % Normal 0.9-7.0 [facility] Comment on above: Performed By: #### T SH #### [facility] [address] [place] [address] Dr. Sherry Sanches Erythrocyte distribution width (RBC) [Ratio] 13.2 % Normal 11.0-15.0 [facility] Comment on above: Performed By: #### T SH #### [facility] [address] [place] [address] Dr. Sherry Sanches Hematocrit (Bld) [Volume fraction] 31.1 % Critically low 36.0-48.0 [facility] Comment on above: Performed By: #### T SH #### [facility] [address] [place] [address] Dr. Sherry Sanches Hemoglobin (Bld) [Mass/Vol] 10.1 g/dL Critically low 12.0-16.0 [facility] Comment on above: Performed By: #### T SH #### [facility] [address] [place] [address] Dr. Sherry Sanches IG # 0.03 10e3/ul Normal 0.00-0.03 [facility] Comment on above: Performed By: #### T SH #### [facility] [address] [place] [address] Dr. Sherry Sanches IG % 0.5 % Normal 0.0-0.5 [facility] Comment on above: Performed By: #### T SH #### [facility] [address] [address] [address] Sherry Sanches LYMPH # 0.8 103/ul Critically low 1.2-3.8 [facility] Comment on above: Performed By: #### T SH #### [facility] [address] [place] [address] Dr. Sherry Sanches Lymphocytes/100 WBC (Bld) 13.1 % Critically low 20.5-60.0 [facility] Comment on above: Performed By: #### T SH #### [facility] [address] [place] [address] Dr. Sherry Sanches MANUAL DIFF REQ NO Normal [facility] Comment on above: Performed By: #### T SH #### [facility] [address] [place] [address] Dr. Sherry Sanches MCH (RBC) [Entitic mass] 30.1 pg Normal 26.7-34.0 [facility] Comment on above: Performed By: #### T SH #### [facility] [address] [place] [address] Dr. Sherry Sanches MCHC (RBC) [Mass/Vol] 32.5 g/dL Normal 29.9-35.2 [facility] Comment on above: Performed By: #### T SH #### [facility] [address] [place] [address] Dr. Sherry Sanches MCV (RBC) [Entitic vol] 92.8 fL Normal 81.0-99.0 [facility] Comment on above: Performed By: #### T SH #### [facility] [address] [place] [address] Dr. Sherry Sanches MONO # 0.9 103/ul Critically high 0.3-0.8 [facility] Comment on above: Performed By: #### T SH #### [facility] [address] [place] [address] Dr. Sherry Sanches Monocytes/100 WBC (Bld) 14.4 % Critically high 1.7-12.0 [facility] Comment on above: Performed By: #### T SH #### [facility] [address] [address] [address] Sherry Sanches NEUT # 4.2 103/ul Normal 1.4-6.5 [facility] Comment on above: Performed By: #### T SH #### [facility] [address] [address] [address] Sherry Sanches Neutrophils/100 WBC (Bld) 67.0 % Normal 43.0-75.0 [facility] Comment on above: Performed By: #### T SH #### [facility] [address] [address] [address] Sherry Sanches Platelet mean volume (Bld) [Entitic vol] 9.2 fL Critically low 9.5-13.5 [facility] Comment on above: Performed By: #### T SH #### [facility] [address] [place] [address] Dr. Sherry Sanches PLT 239 103/ul Normal 150-450 [facility] Comment on above: Performed By: #### T SH #### [facility] [address] [address] [address] Sherry Sanches RBC 3.35 106/ul Critically low 4.20-5.40 [facility] Comment on above: Performed By: #### T SH #### [facility] [address] [address] [address] Sherry Sanches WBC 6.3 103/ul Normal 4.0-11.0 [facility] Comment on above: Performed By: #### T SH #### [facility] [address] [place] [address] Dr. Sherry Sanches ECHOCARDIO M/2D COMPLETEon 1 ECHOCARDIO M/2D COMPLETE Patient: DIANN LINDER Exam Date: 02/14/2022 : 1950 Gender:F Ordering : DR KAYLA ARELLANO . Admission #: [id number] Family : DR FER MCKENNA . Order #: [id number] CLICK HERE TO VIEW EXAM ECHOCARDIOGRAM REPORT [...] Tobias M.D. on 02/18/2022 at 08:20 Normal [facility] PROF CHEM 8 (BAS METB)on Anion gap [Moles/Vol] 10.2 mmol/L Normal [facility] Comment on above: Performed By: #### H STROPN #### [facility] [address] [place] [address] Dr. Sherry Sanches Calcium [Mass/Vol] 8.4 mg/dL Critically low 8.5-10.1 [facility] Comment on above: Performed By: #### H STROPN #### [facility] [address] [place] [address] Dr. Sherry Sanches Chloride [Moles/Vol] 101 mmol/L Normal 98-107 [facility] Comment on above: Performed By: #### H STROPN #### [facility] [address] [address] Dr. Sherry Sanches CO2 [Moles/Vol] 28.4 mmol/L Normal 21.0-32.0 [facility] Comment on above: Performed By: #### H STROPN #### [facility] [address] [address] [address] Sherry Sanches Creatinine [Mass/Vol] 2.13 mg/dL Critically high 0.55-1.02 [facility] Comment on above: Performed By: #### H STROPN #### [facility] [address] [address] [address] Sherry Sanches EGFR-AF ANDORRAN 28 mL/min/1.73m2 Critically low >=60 [facility] Comment on above: Performed By: #### H STROPN #### [facility] [address] [address] [address] Sherry Sanches EGFR-NON AF ANDORRAN 23 mL/min/1.73m2 Critically low >=60 [facility] Comment on above: Performed By: #### H STROPN #### [facility] [address] [address] [address] Sherry Sanches Glucose [Mass/Vol] 100 mg/dL Normal 74-106 [facility] Comment on above: Performed By: #### H STROPN #### [facility] [address] [address] [address] Sherry Sanches Potassium [Moles/Vol] 3.6 mmol/L Normal 3.5-5.1 [facility] Comment on above: Performed By: #### H STROPN #### [facility] [address] [address] [address] Sherry Sanches Sodium [Moles/Vol] 136 mmol/L Normal 136-145 [facility] Comment on above: Performed By: #### H STROPN #### [facility] [address] [address] [address] Sherry Sanches Urea nitrogen [Mass/Vol] 31.0 mg/dL Critically high 7.0-18.0 [facility] Comment on above: Performed By: #### H STROPN #### [facility] [address] [address] [address] Sherry Sanches Urea nitrogen/Creatinine [Mass ratio] 14.6 mg/mg Normal [facility] Comment on above: Performed By: #### H STROPN #### [facility] [address] [address] [address] Sherry Sanches BNPon 02-13-2022 Natriuretic peptide B (Bld) [Mass/Vol] 1047.0 pg/mL Critically high <=900.0 [facility] Comment on above: Performed By: #### C BC #### [facility] [address] [address] [address] Sherry Sanches CBC AUTO DIFFon 02-13-2022 BASO # 0.0 103/ul Normal 0.0-0.1 [facility] Comment on above: Performed By: #### C BC ####[facility] [address] [address]DrBita Sanches Basophils/100 WBC (Bld) 0.4 % Normal 0.2-2.0 [facility] Comment on above: Performed By: #### C BC ####[facility] [address] [place], [place] [address]DrBita Sanches EO # 0.2 103/ul Normal 0.0-0.7 [facility] Comment on above: Performed By: #### C BC ####[facility] [address] [address]Dr. Sherry Sanches Eosinophils/100 WBC (Bld) 2.9 % Normal 0.9-7.0 [facility] Comment on above: Performed By: #### C BC ####[facility] [address] [place], [place] [address]DrBita Sanches Erythrocyte distribution width (RBC) [Ratio] 13.2 % Normal 11.0-15.0 [facility] Comment on above: Performed By: #### C BC ####[facility] [address] [place], [place] [address]DrBita Sanches Hematocrit (Bld) [Volume fraction] 32.6 % Critically low 36.0-48.0 [facility] Comment on above: Performed By: #### C BC ####[facility] [address] [place], [place] [address]DrBita Sanches Hemoglobin (Bld) [Mass/Vol] 10.8 g/dL Critically low 12.0-16.0 [facility] Comment on above: Performed By: #### C BC ####[facility] [address] [id number]. Sherry Sanches IG # 0.03 10e3/ul Normal 0.00-0.03 [facility] Comment on above: Performed By: #### C BC ####[facility] [address] [address]Dr. Sherry Sanches IG % 0.4 % Normal 0.0-0.5 [facility] Comment on above: Performed By: #### C BC ####[facility] [address] [address]DrBita Sanches LYMPH # 0.8 103/ul Critically low 1.2-3.8 [facility] Comment on above: Performed By: #### C BC ####[facility] [address] [address]DrBita Sanches Lymphocytes/100 WBC (Bld) 10.4 % Critically low 20.5-60.0 [facility] Comment on above: Performed By: #### C BC ####[facility] [address] [address]DrBita Sanches MANUAL DIFF REQ NO Normal [facility] Comment on above: Performed By: #### C BC ####[facility] [address] [address]Dr. Sherry Sanches MCH (RBC) [Entitic mass] 30.7 pg Normal 26.7-34.0 [facility] Comment on above: Performed By: #### C BC ####[facility] [address] [id number]. Sherry Sanches MCHC (RBC) [Mass/Vol] 33.1 g/dL Normal 29.9-35.2 [facility] Comment on above: Performed By: #### C BC ####[facility] [address] [address]Dr. Sherry Sanches MCV (RBC) [Entitic vol] 92.6 fL Normal 81.0-99.0 [facility] Comment on above: Performed By: #### C BC ####[facility] [address] [address]Dr. Sherry Sanches MONO # 1.0 103/ul Critically high 0.3-0.8 [facility] Comment on above: Performed By: #### C BC ####[facility] [address] [address]Dr. Sherry Sanches Monocytes/100 WBC (Bld) 14.2 % Critically high 1.7-12.0 [facility] Comment on above: Performed By: #### C BC ####[facility] [address] [id number]. Sherry Sanches NEUT # 5.3 103/ul Normal 1.4-6.5 [facility] Comment on above: Performed By: #### C BC ####[facility] [address] [address]Dr. Sherry Sanches Neutrophils/100 WBC (Bld) 71.7 % Normal 43.0-75.0 [facility] Comment on above: Performed By: #### C BC ####[facility] [address] [id number]. Sherry Sanches Platelet mean volume (Bld) [Entitic vol] 9.3 fL Critically low 9.5-13.5 [facility] Comment on above: Performed By: #### C BC ####[facility] [address] [id number]. Sherry Sanches PLT 245 103/ul Normal 150-450 [facility] Comment on above: Performed By: #### C BC ####[facility] [address] [address]Dr. Sherry Sanches RBC 3.52 106/ul Critically low 4.20-5.40 [facility] Comment on above: Performed By: #### C BC ####[facility] [address] [id number]. Sherry Sanches WBC 7.3 103/ul Normal 4.0-11.0 [facility] Comment on above: Performed By: #### C BC ####[facility] [address] [place], [place] [address]BqDr. Sherry Sanches Covid-19 PCR ([facility]on SARS-CoV-2 (COVID-19) RNA GABE+probe Ql (Unsp spec) Not detected Normal NOT DETECTED [facility] Comment on above: Result Comment: When [...] for this test is supported by the Plastic Surgery Specialist of Health and Human Service's declaration that [...] used). Performed By: #### H STROPN #### [facility] [address] [place] [address] Dr. Sherry Sanches LIPASEon 02-13-2022 Lipase [Catalytic activity/Vol] 84.0 U/L Normal 73.0-393.0 [facility] Comment on above: Performed By: #### C BC #### [facility] [address] [address] [address] Sherry Sanches PROF 14(COMP METB)on 022 Albumin [Mass/Vol] 3.7 g/dL Normal 3.4-5.0 [facility] Comment on above: Performed By: #### C BC #### [facility] [address] [place] [address] Dr. Sherry Sanches Albumin/Globulin [Mass ratio] 0.9 {ratio} Normal [facility] Comment on above: Performed By: #### C BC #### [facility] [address] [place] [address] Dr. Sherry Sanches ALP [Catalytic activity/Vol] 103 U/L Normal 46-116 [facility] Comment on above: Performed By: #### C BC #### [facility] [address] [place] [address] Dr. Sherry Sanches ALT [Catalytic activity/Vol] 15 U/L Normal 14-59 [facility] Comment on above: Performed By: #### C BC #### [facility] [address] [place] [address] Dr. Sherry Sanches Anion gap [Moles/Vol] 12.0 mmol/L Normal [facility] Comment on above: Performed By: #### C BC #### [facility] [address] [place] [address] Dr. Sherry Sanches AST [Catalytic activity/Vol] 18 U/L Normal 15-37 [facility] Comment on above: Performed By: #### C BC #### [facility] [address] [place] [address] Dr. Sherry Sanches Bilirubin [Mass/Vol] 0.9 mg/dL Normal 0.2-1.0 [facility] Comment on above: Performed By: #### C BC #### [facility] [address] [place] [address] Dr. Sherry Sanches Calcium [Mass/Vol] 8.9 mg/dL Normal 8.5-10.1 [facility] Comment on above: Performed By: #### C BC #### [facility] [address] [place] [address] Dr. Sherry Sanches Chloride [Moles/Vol] 98 mmol/L Normal 98-107 [facility] Comment on above: Performed By: #### C BC #### [facility] [address] [place] [address] Dr. Sherry Sanches CO2 [Moles/Vol] 27.6 mmol/L Normal 21.0-32.0 [facility] Comment on above: Performed By: #### C BC #### [facility] [address] [place] [address] Dr. Sherry Sanches Creatinine [Mass/Vol] 2.22 mg/dL Critically high 0.55-1.02 [facility] Comment on above: Performed By: #### C BC #### [facility] [address] [address] [address] Sherry Sanches EGFR-AF ANDORRAN 26 mL/min/1.73m2 Critically low >=60 [facility] Comment on above: Performed By: #### C BC #### [facility] [address] [address] [address] Sherry Sanches EGFR-NON AF ANDORRAN 22 mL/min/1.73m2 Critically low >=60 [facility] Comment on above: Performed By: #### C BC #### [facility] [address] [place] [address] Dr. Sherry Sanches Globulin (S) [Mass/Vol] 3.9 g/dL Normal [facility] Comment on above: Performed By: #### C BC #### [facility] [address] [place] [address] Dr. Sherry Sanches Glucose [Mass/Vol] 116 mg/dL Critically high 74-106 [facility] Comment on above: Performed By: #### C BC #### [facility] [address] [place] [address] Dr. Sherry Sanches Potassium [Moles/Vol] 3.6 mmol/L Normal 3.5-5.1 [facility] Comment on above: Performed By: #### C BC #### [facility] [address] [place] [address] Dr. Sherry Sanches Protein [Mass/Vol] 7.6 g/dL Normal 6.4-8.2 [facility] Comment on above: Performed By: #### C BC #### [facility] [address] [place] [address] Dr. Sherry Sanches Sodium [Moles/Vol] 134 mmol/L Critically low 136-[address] [facility] Comment on above: Performed By: #### C BC #### [facility] [address] [place] [address] Dr. Sherry Sanches Urea nitrogen [Mass/Vol] 32.0 mg/dL Critically high 7.0-18.0 [facility] Comment on above: Performed By: #### C BC #### [facility] [address] [place] [address] Dr. Sherry Sanches Urea nitrogen/Creatinine [Mass ratio] 14.4 mg/mg Normal [facility] Comment on above: Performed By: #### C BC #### [facility] [address] [place] [address] Dr. Sherry Sanches PROTIMEon 02-13-2022 INR Coag (PPP) [Relative time] 1.02 {INR} Normal [facility] Comment on above: Performed By: #### C VDAGS #### [facility] [address] [place] [address] Dr. Sherry Sanches INR GUIDELINES SEE BELOW Normal [facility] Comment on above: Result Comment: SARAH RED INR: 2.0 - 3.0 CONDITIONS NOT LISTED BELOW 2.5 - 3.5 FOR PROSTHETIC HEART VALVE REPLACEMENT 2.5 - 3.5 RECURRENT THROMBOSIS Performed By: #### C VDAGS #### [facility] [address] [place] [address] Dr. Sherry Sanches PT Coag (PPP) [Time] 11.0 s Normal 9.0-11.6 [facility] Comment on above: Performed By: #### C VDAGS #### [facility] [address] [place] [address] Dr. Sherry Sanches PTTon 02-13-2022 aPTT Coag (Bld) [Time] 28.0 s Normal 22.3-36.2 [facility] Comment on above: Performed By: #### C VDAGS #### [facility] [address] [place] [address] Dr. Sherry Sanches TROPONIN, HIGH SENSITIVITYon 02-13-2022 HSTROP 7.4 pg/mL Normal 4.0-51.3 [facility] Comment on above: Result Comment: CUT- OFF POINTS HAVE BEEN ESTABLISHED BASED ON THE FOURTH UNIVERSAL DEFINITIONS OF MYOCARDIAL INFARCTION. THE UPPER REFERENCE LIMIT (URL) OF TROPONIN, DEFINED THE 99TH PERCENTILE OF cTnI DISTRIBUTION IN A REFERENCE POPULATION, HAS BEEN CONFIRMED THE DECISION THRESHOLD FOR [place] DIAGNOSIS. Performed By: #### H STROPN ####[facility] [address] [place], [place] [address]VfDr. Sherry Sanches HSTROP 6.3 pg/mL Normal 4.0-51.3 [facility] Comment on above: Result Comment: CUT- OFF POINTS HAVE BEEN ESTABLISHED BASED ON THE FOURTH UNIVERSAL DEFINITIONS OF MYOCARDIAL INFARCTION. THE UPPER REFERENCE LIMIT (URL) OF TROPONIN, DEFINED THE 99TH PERCENTILE OF cTnI DISTRIBUTION IN A REFERENCE POPULATION, HAS BEEN CONFIRMED THE DECISION THRESHOLD FOR [place] DIAGNOSIS. Performed By: #### H STROPN #### [facility] [address] [place], [place] [address] Dr. Sherry Sanches HSTROP 6.3 pg/mL Normal 4.0-51.3 [facility] Comment on above: Result Comment: CUT- OFF POINTS HAVE BEEN ESTABLISHED BASED ON THE FOURTH UNIVERSAL DEFINITIONS OF MYOCARDIAL INFARCTION. THE UPPER REFERENCE LIMIT (URL) OF TROPONIN, DEFINED THE 99TH PERCENTILE OF cTnI DISTRIBUTION IN A REFERENCE POPULATION, HAS BEEN CONFIRMED THE DECISION THRESHOLD FOR [place] DIAGNOSIS. Performed By: #### C BC #### [facility] [address] [place], [place] [address] Dr. Sherry Sanches XR CHEST 1 Von [...] by: ANA MILLS Date: 2022-02-13 18:33 Normal [facility] CREATININEon 01-10-2022 Creatinine [Mass/Vol] 1.05 mg/dL Critically high 0.55-1.02 [facility] Comment on above: Performed By: #### T SH #### [facility] [address] [place], [place] [address] Dr. Sherry Sanches EGFR-AF ANDORRAN >60 Normal >=60 [facility] Comment on above: Performed By: #### T SH #### [facility] [address] [address] [address] Sherry Sanches EGFR-NON AF ANDORRAN 52 mL/min/1.73m2 Critically low >=60 [facility] Comment on above: Performed By: #### T #### [facility] [address] [place], [place] [address] [address] ABD/PELV WO W [...] LONNIE MCCORMACK Date: 2022-01-10 14:05 Normal [facility] XR KUB 1 VIEWon 01-07-2022 XR [...] HOWARD POST Date: 2022-01-07 15:17 Normal [facility] CBC AUTO DIFFon 12-17-2021 BASO # 0.0 103/ul Normal 0.0-0.1 [facility] Comment on above: Performed By: #### T SH #### [facility] [address] [address] [address] Sherry Sanches Basophils/100 WBC (Bld) 0.7 % Normal 0.2-2.0 [facility] Comment on above: Performed By: #### T SH #### [facility] [address] [address] [address] Sherry Sanches EO # 0.2 103/ul Normal 0.0-0.7 [facility] Comment on above: Performed By: #### T SH #### [facility] [address] [address] [address] Sherry Sanches Eosinophils/100 WBC (Bld) 5.5 % Normal 0.9-7.0 [facility] Comment on above: Performed By: #### T SH #### [facility] [address] [address] [address] Sherry Sanches Erythrocyte distribution width (RBC) [Ratio] 16.5 % Critically high 11.0-15.0 [facility] Comment on above: Performed By: #### T SH #### [facility] [address] [place] [address] Dr. Sherry Sanches Hematocrit (Bld) [Volume fraction] 37.7 % Normal 36.0-48.0 [facility] Comment on above: Performed By: #### T SH #### [facility] [address] [address] [address] Sherry Sanches Hemoglobin (Bld) [Mass/Vol] 12.0 g/dL Normal 12.0-16.0 [facility] Comment on above: Performed By: #### T SH #### [facility] [address] [address] [address] Sherry Sanches IG # 0.01 10e3/ul Normal 0.00-0.03 [facility] Comment on above: Performed By: #### T SH #### [facility] [address] [place] [address] Dr. Sherry Sanches IG % 0.2 % Normal 0.0-0.5 [facility] Comment on above: Performed By: #### T SH #### [facility] [address] [place] [address] Dr. Sherry Sanches LYMPH # 0.9 103/ul Critically low 1.2-3.8 [facility] Comment on above: Performed By: #### T SH #### [facility] [address] [place] [address] Dr. Sherry Sanches Lymphocytes/100 WBC (Bld) 21.3 % Normal 20.5-60.0 [facility] Comment on above: Performed By: #### T SH #### [facility] [address] [place] [address] Dr. Sherry Sanches MANUAL DIFF REQ NO Normal [facility] Comment on above: Performed By: #### T SH #### [facility] [address] [place] [address] Dr. Sherry Sanches MCH (RBC) [Entitic mass] 29.0 pg Normal 26.7-34.0 [facility] Comment on above: Performed By: #### T SH #### [facility] [address] [place] [address] Dr. Sherry Sanches MCHC (RBC) [Mass/Vol] 31.8 g/dL Normal 29.9-35.2 [facility] Comment on above: Performed By: #### T SH #### [facility] [address] [address] [address] Sherry Sanches MCV (RBC) [Entitic vol] 91.1 fL Normal 81.0-99.0 [facility] Comment on above: Performed By: #### T SH #### [facility] [address] [address] [address] Sherry Sanches MONO # 0.6 103/ul Normal 0.3-0.8 [facility] Comment on above: Performed By: #### T SH #### [facility] [address] [place] [address] Dr. Sherry Sanches Monocytes/100 WBC (Bld) 15.4 % Critically high 1.7-12.0 [facility] Comment on above: Performed By: #### T SH #### [facility] [address] [place] [address] Dr. Sherry Sanches NEUT # 2.3 103/ul Normal 1.4-6.5 [facility] Comment on above: Performed By: #### T SH #### [facility] [address] [place] [address] Dr. Sherry Sanches Neutrophils/100 WBC (Bld) 56.9 % Normal 43.0-75.0 [facility] Comment on above: Performed By: #### T SH #### [facility] [address] [place] [address] Dr. Sherry Sanches Platelet mean volume (Bld) [Entitic vol] 9.2 fL Critically low 9.5-13.5 [facility] Comment on above: Performed By: #### T SH #### [facility] [address] [place] [address] Dr. Sherry Sanches PLT 208 103/ul Normal 150-450 [facility] Comment on above: Performed By: #### T SH #### [facility] [address] [place] [address] Dr. Sherry Sanches RBC 4.14 106/ul Critically low 4.20-5.40 [facility] Comment on above: Performed By: #### T SH #### [facility] [address] [address] [address] Sherry Sanches WBC 4.0 103/ul Normal 4.0-11.0 [facility] Comment on above: Performed By: #### T SH #### [facility] [address] [address] [address] Sherry Sanches IRONon 12-17-2021 Iron [Mass/Vol] 61.0 ug/dL Normal 50.0-170.0 [facility] Comment on above: Performed By: #### H STROPN #### [facility] [address] [address] [address] Sherry Sanches CHEMISTRYOrdered By: SYSTEM SYSTEM on 10-31-2021 Anion gap [Moles/Vol] 13 mmol/L Normal 6 - 16 mEq/L F C Remisol Calcium [Mass/Vol] 8.9 mg/dL Normal 8.9 - 11. 1 mg/dL [facility] Remisol Chloride [Moles/Vol] 104 mmol/L Normal 101 [...] 49 mL/min/1.73 m2 Low >=59mL/min/1 .73 m2 [facility] S Glucose [Mass/Vol] 117 mg/dL Normal 55 - 199 mg/dL [facility] Remisol Potassium [Moles/Vol] 4.0 mmol/L Normal 3.5 - 5.3 mmol/L [facility] Remisol Sodium [Moles/Vol] 140 mmol/L Normal 135 - 145 mmol/L [facility] Remisol Urea nitrogen [Mass/Vol] 26 mg/dL High [...] Ql (Bld) Present (10/31/21 5:56 PM) Normal [facility] HemeManSS Erythrocyte distribution width (RBC) [Ratio] 22.8 % High 10.9 - 14.2 % [facility] HemeAutoSS Hematocrit (Bld) [Volume fraction] 34.2 % Normal 34.0 - 46.0 % [facility] HemeAutoSS Hemoglobin (Bld) [Mass/Vol] 11.0 g/dL Low 12.0 - 16.0 gm/dL [facility] HemeAutoSS MCH (RBC) [Entitic mass] 27.3 pg Normal 27.0 - 34.0 pg [facility] HemeAutoSS MCHC (RBC) [Mass/Vol] 32.3 g/dL Normal 31.4 - 36.0 gm/dL [facility] HemeAutoSS MCV (RBC) [Entitic vol] 84.7 fL Normal 80.0 - 100.0 fL [facility] HemeAutoSS Morphology Jesse (Bld) [Interp] See Morphology (10/31/21 5:56 PM) Normal [facility] HemeManSS Platelet mean volume (Bld) [Entitic vol] 7.9 fL Normal 6.4 - 10.8 fL [facility] HemeAutoSS Platelets (Bld) [#/Vol] 348.0 E9/L Normal 150.0 - 500.0 E9/L [facility] HemeAutoSS RBC (Bld) [#/Vol] 4.0 E12/L Low [...] PM) Normal Negative [facility] UA Auto SS [place].plasma/Lithiu m.RBC (Bld) [Mass ratio] 4-20 /HPF Normal [...] [facility] UA Auto SS Urobilinogen Qn (U) [id number] {Ellen'U}/dL Normal 0.0 - 1.0 EU/dL [facility] UA Auto SS WBC Auto Ql (U) Trace *ABN* (10/31/21 5:56 PM) Invalid Interpretation Code Negative [facility] UA Auto SS WBC LM.HPF (Urine sed) [#/Area] /[HPF] Invalid Interpretation Code 0-5/HPF [facility] UA Auto SS CBC AUTO DIFFon 10-25-2021 BASO # 0.0 103/ul Normal 0.0-0.1 [facility] Comment on above: Performed By: #### T SH #### [facility] [address] [address] [address] Sherry Sanches Basophils/100 WBC (Bld) 0.1 % Critically low 0.2-2.0 [facility] Comment on above: Performed By: #### T SH #### [facility] [address] [address] [address] Sherry Sanches EO # 0.0 103/ul Normal 0.0-0.7 [facility] Comment on above: Performed By: #### T SH #### [facility] [address] [address] [address] Sherry Sanches Eosinophils/100 WBC (Bld) 0.1 % Critically low 0.9-7.0 [facility] Comment on above: Performed By: #### T SH #### [facility] [address] [place] [address] Dr. Sherry Sanches Erythrocyte distribution width (RBC) [Ratio] 20.9 % Critically high 11.0-15.0 [facility] Comment on above: Performed By: #### T SH #### [facility] [address] [place] [address] Dr. Sherry Sanches Hematocrit (Bld) [Volume fraction] 32.1 % Critically low 36.0-48.0 [facility] Comment on above: Performed By: #### T SH #### [facility] [address] [place] [address] Dr. Sherry Sanches Hemoglobin (Bld) [Mass/Vol] 9.9 g/dL Critically low 12.0-16.0 [facility] Comment on above: Performed By: #### T SH #### [facility] [address] [place] [address] Dr. Sherry Sanches IG # 0.04 10e3/ul Critically high 0.00-0.03 [facility] Comment on above: Performed By: #### T SH #### [facility] [address] [place] [address] Dr. Sherry Sanches IG % 0.5 % Normal 0.0-0.5 [facility] Comment on above: Performed By: #### T SH #### [facility] [address] [place] [address] Dr. Sherry Sanches LYMPH # 1.1 103/ul Critically low 1.2-3.8 [facility] Comment on above: Performed By: #### T SH #### [facility] [address] [place] [address] Dr. Sherry Sanches Lymphocytes/100 WBC (Bld) 12.3 % Critically low 20.5-60.0 [facility] Comment on above: Performed By: #### T SH #### [facility] [address] [place] [address] Dr. Sherry Sanches MANUAL DIFF REQ NO Normal [facility] Comment on above: Performed By: #### T SH #### [facility] [address] [place] [address] Dr. Sherry Sanches MCH (RBC) [Entitic mass] 27.3 pg Normal 26.7-34.0 [facility] Comment on above: Performed By: #### T SH #### [facility] [address] [place] [address] Dr. Sherry Sanches MCHC (RBC) [Mass/Vol] 30.8 g/dL Normal 29.9-35.2 [facility] Comment on above: Performed By: #### T SH #### [facility] [address] [place] [address] Dr. Sherry Sanches MCV (RBC) [Entitic vol] 88.4 fL Normal 81.0-99.0 [facility] Comment on above: Performed By: #### T SH #### [facility] [address] [place] [address] Dr. Sherry Sanches MONO # 1.0 103/ul Critically high 0.3-0.8 [facility] Comment on above: Performed By: #### T SH #### [facility] [address] [place] [address] Dr. Sherry Sanches Monocytes/100 WBC (Bld) 11.6 % Normal 1.7-12.0 [facility] Comment on above: Performed By: #### T SH #### [facility] [address] [place] [address] Dr. Sherry Sanches NEUT # 6.4 103/ul Normal 1.4-6.5 [facility] Comment on above: Performed By: #### T SH #### [facility] [address] [place] [address] Dr. Sherry Sanches Neutrophils/100 WBC (Bld) 75.4 % Critically high 43.0-75.0 [facility] Comment on above: Performed By: #### T SH #### [facility] [address] [address] [address] Sherry Sanches Platelet mean volume (Bld) [Entitic vol] 9.4 fL Critically low 9.5-13.5 [facility] Comment on above: Performed By: #### T SH #### [facility] [address] [address] [address] Sherry Sanches PLT 327 103/ul Normal 150-450 [facility] Comment on above: Performed By: #### T SH #### [facility] [address] [address] [address] Sherry Sanches RBC 3.63 106/ul Critically low 4.20-5.40 [facility] Comment on above: Performed By: #### T SH #### [facility] [address] [address] [address] Sherry Sanches WBC 8.5 103/ul Normal 4.0-11.0 [facility] Comment on above: Performed By: #### T SH #### [facility] [address] [address] [address] Sherry Sanches IRONon 10-25-2021 Iron [Mass/Vol] 43.0 ug/dL Critically low 50.0-170.0 [facility] Comment on above: Performed By: #### H STROPN #### [facility] [address] [address] [address] Sherry Sanches TSHon 10-02-2021 TSH 1.700 uIU/mL Normal 0.400-4.500 [facility] Comment on above: Performed By: #### T SH #### [facility] [address] [facility] [address] [place] [id number] THYROGLOBULINon 09-29-2021 Thyroglobulin <2.0 Normal [facility] Comment on above: Result Comment: This [...] 2.0 ng/mL. Performed By: #### T JIM ####[facility] [address] [place], [place] [address]DoDr. Sherry Sanches CBC AUTO DIFFon 09-24-2021 BASO # 0.0 103/ul Normal 0.0-0.1 [facility] Comment on above: Performed By: #### C BC #### [facility] [address] [address] [address] Sherry Sanches Basophils/100 WBC (Bld) 0.5 % Normal 0.2-2.0 [facility] Comment on above: Performed By: #### C BC #### [facility] [address] [address] [address] Sherry Sanches EO # 0.2 103/ul Normal 0.0-0.7 [facility] Comment on above: Performed By: #### C BC #### [facility] [address] [address] [address] Sherry Sanches Eosinophils/100 WBC (Bld) 4.2 % Normal 0.9-7.0 [facility] Comment on above: Performed By: #### C BC #### [facility] [address] [address] [address] Sherry Sanches Erythrocyte distribution width (RBC) [Ratio] 21.4 % Critically high 11.0-15.0 [facility] Comment on above: Performed By: #### C BC #### [facility] [address] [address] [address] Sherry Sanches Hematocrit (Bld) [Volume fraction] 29.8 % Critically low 36.0-48.0 [facility] Comment on above: Performed By: #### C BC #### [facility] [address] [address] [address] Sherry Sanches Hemoglobin (Bld) [Mass/Vol] 9.1 g/dL Critically low 12.0-16.0 [facility] Comment on above: Performed By: #### C BC #### [facility] [address] [place] [address] Dr. Sherry Sanches IG # 0.01 10e3/ul Normal 0.00-0.03 [facility] Comment on above: Performed By: #### C BC #### [facility] [address] [place] [address] Dr. Sherry Sanches IG % 0.3 % Normal 0.0-0.5 [facility] Comment on above: Performed By: #### C BC #### [facility] [address] [place] [address] Dr. Sherry Sanches LYMPH # 0.9 103/ul Critically low 1.2-3.8 [facility] Comment on above: Performed By: #### C BC #### [facility] [address] [place] [address] Dr. Sherry Sanches Lymphocytes/100 WBC (Bld) 24.6 % Normal 20.5-60.0 [facility] Comment on above: Performed By: #### C BC #### [facility] [address] [place] [address] Dr. Sherry Sanches MANUAL DIFF REQ NO Normal [facility] Comment on above: Performed By: #### C BC #### [facility] [address] [place] [address] Dr. Sherry Sanches MCH (RBC) [Entitic mass] 26.0 pg Critically low 26.7-34.0 [facility] Comment on above: Performed By: #### C BC #### [facility] [address] [place] [address] Dr. Sherry Sanches MCHC (RBC) [Mass/Vol] 30.5 g/dL Normal 29.9-35.2 [facility] Comment on above: Performed By: #### C BC #### [facility] [address] [place] [address] Dr. Sherry Sanches MCV (RBC) [Entitic vol] 85.1 fL Normal 81.0-99.0 [facility] Comment on above: Performed By: #### C BC #### [facility] [address] [address] [address] Sherry Sanches MONO # 0.5 103/ul Normal 0.3-0.8 [facility] Comment on above: Performed By: #### C BC #### [facility] [address] [address] [address] Sherry Sanches Monocytes/100 WBC (Bld) 14.3 % Critically high 1.7-12.0 [facility] Comment on above: Performed By: #### C BC #### [facility] [address] [place] [address] Dr. Sherry Sanches NEUT # 2.1 103/ul Normal 1.4-6.5 [facility] Comment on above: Performed By: #### C BC #### [facility] [address] [place] [address] Dr. Sherry Sanches Neutrophils/100 WBC (Bld) 56.1 % Normal 43.0-75.0 [facility] Comment on above: Performed By: #### C BC #### [facility] [address] [place] [address] Dr. Sherry Sanches Platelet mean volume (Bld) [Entitic vol] 8.6 fL Critically low 9.5-13.5 [facility] Comment on above: Performed By: #### C BC #### [facility] [address] [place] [address] Dr. Sherry Sanches PLT 253 103/ul Normal 150-450 [facility] Comment on above: Performed By: #### C BC #### [facility] [address] [place] [address] Dr. Sherry Sanches RBC 3.50 106/ul Critically low 4.20-5.40 [facility] Comment on above: Performed By: #### C BC #### [facility] [address] [place] [address] Dr. Sherry Sanches WBC 3.8 103/ul Critically low 4.0-11.0 [facility] Comment on above: Performed By: #### C BC #### [facility] [address] [place], [place] [id number] Dr. Sherry Sanches IRONon 09-24-2021 Iron [Mass/Vol] 55.0 ug/dL Normal 50.0-170.0 [facility] Comment on above: Performed By: #### H STROPN #### [facility] [address] [address] [address] Sherry Sanches US KIDNEYSon 09-23-2021 US [...] HOWARD POST Date: 2021-09-23 14:31 Normal [facility] US THYROIDon 09-23-2021 US THYROID EXAMINATION: [...] by: HOWARD POST Date: 2021-09-23 14:38 Normal [facility] Cardiovascular Lab Reporton 11-02-2020 Cardiovascular Lab Report [facility] Patient Name: [facility] MR #: [id number] Physician: [facility] Medicine Service Date: 11/02/2020 Division of Birthdate: 1950 Cardiology Room #: Adult Cardiovascular [facility] [address]. [place], [place] [address] Cardiovascular Laboratory Report INDICATION: The patient is [...] signed informed consent. 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 The left wrist area was prepped and draped in usual fashion. Modified Jose's test was favorable on the left. Access in the left radial artery was obtained using micropuncture technique. A 6-Amharic x 11 cm Hydrophilic sheath was advanced. Verapamil was given through the sheath and heparin was administered intravenously. Bilateral selective coronary angiography was then performed using 6-Amharic JL4 and JR4 diagnostic catheters. Catheters were [...] Tobias M.D. Date Trans: 11/02/2020 11:18 A/kamari [id number] cc: Sanaz Lake M.D. [address] [place] [id number] [facility] SR-XR Spine Cervical 2 or 3 Views IMPORTon 06-29-2019 SR-XR Spine Cervical 2 or 3 Views IMPORT Images were obtained outside of [facility] [id number] N Normal [facility] Coding Summary.on 07-30-2018 Coding Summary. 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 However, the narrative phrase printed from the coding software may appear abbreviated, or result in slightly different terminology. Coded By: Dunia Crook CphT Date Saved: 07/30/2018 01:41 pm Normal [facility] Consultation Noteon 07-31-19 19 Consultation Note HOSPITAL REGULATIONS : ALL Positive [...] an injection. She reports the Gabapentin and Quemado have remained helpful, and she denies side [...] the primary pain generator. I reviewed an [place] [employer] [facility] report on her, which is appropriate. I also reviewed her operative note. PLAN: I addressed options with her and I am going to refill the Quemado at a dose of 5/325 one tablet [...] evaluation. Chad Salas M.D. [employer] Dictated: 07/22/2018 #[id number] Typed: 07/28/2018 #[id number] cc: Lewis Lee M.D. [facility] Comment on above: Result Comment: Elec tronically Signed By: Josue SOMMERS, Chad\.br\Date and Time Signed: 07/30/18 14:32 EDT Vital Signs Date Time Vital Sign Value Performing Clinician Facility 05-21-2023 12:35-0500 Diastolic blood pressure 86 mm[Hg] Prudencio Payan [facility] 05-21-2023 12:35-0500 Heart rate 56 /min Prudencio Payan [facility] 05-21-2023 12:35-0500 Mean blood pressure 107 mm[Hg] Prudencio Payan [facility] 05-21-2023 12:35-0500 Respiratory rate 18 /min Prudencio Payan [facility] 05-21-2023 12:35-0500 Systolic blood pressure 150 mm[Hg] Prudencio Payan [facility] 01-21-2023 10:53-0400 Heart rate 48 /min Prudencio Payan [facility] 01-21-2023 10:53-0400 SaO2% (BldA) [Mass fraction] 95 % Prudencio Payan [facility] 01-21-2023 10:53-0400 Diastolic blood pressure 77 mm[Hg] Prudencio Payan [facility] 01-21-2023 10:53-0400 Mean blood pressure 91 mm[Hg] Prudencio Payan [facility] 01-21-2023 10:53-0400 Systolic blood pressure 118 mm[Hg] Prudencio Payan [facility] 01-21-2023 10:53-0400 Respiratory rate 16 /min Prudencio Payan [facility] 01-21-2023 10:48-0400 Diastolic blood pressure 71 mm[Hg] Prudencio Payan [facility] 01-21-2023 10:48-0400 Heart rate 51 /min Prudencio Payan [facility] 01-21-2023 10:48-0400 SaO2% (BldA) [Mass fraction] 93 % Prudencio Payan [facility] 01-21-2023 10:48-0400 Systolic blood pressure 113 mm[Hg] Prudencio Schuyler [facility] 01-21-2023 09:51-0400 Heart rate 53 /min Flannery Schuyler [facility] 01-21-2023 09:51-0400 SaO2% (BldA) [Mass fraction] 95 % Prudencio Schuyler [facility] 01-21-2023 09:51-0400 Respiratory rate 16 /min Prudencio Payan [facility] 01-21-2023 09:47-0400 Body temperature 97.7 [degF] Prudencio Payan [facility] 01-21-2023 09:46-0400 Blood Pressure Location Prudencio Payan [facility] 01-21-2023 09:46-0400 Diastolic blood pressure 66 mm[Hg] Prudencio Payan [facility] 01-21-2023 09:46-0400 Mean blood pressure 79 mm[Hg] Prudencio Payan [facility] 01-21-2023 09:46-0400 Systolic blood pressure 104 mm[Hg] Prudencio Payan [facility] 12-26-2022 14:00-0400 Diastolic blood pressure 72 mm[Hg] [facility] 12-26-2022 14:00-0400 Heart rate 59 /min [facility] 12-26-2022 14:00-0400 Mean blood pressure 91 mm[Hg] [facility] 12-26-2022 14:00-0400 Respiratory rate 14 /min [facility] 12-26-2022 14:00-0400 Systolic blood pressure 130 mm[Hg] [facility] 07-04-2022 14:40-0500 Diastolic blood pressure 87 mm[Hg] [facility] 07-04-2022 14:40-0500 Heart rate 61 /min [facility] 07-04-2022 14:40-0500 Mean blood pressure 107 mm[Hg] Indian[facility]ce Walsh [facility] 07-04-2022 14:40-0500 Respiratory rate 18 /min Indianajoyce Walsh [facility] 07-04-2022 14:40-0500 Systolic blood pressure 146 mm[Hg] Indianajoyce Walsh [facility] 06-10-2022 10:50-0500 Diastolic blood pressure 85 mm[Hg] Christ Rodriguez [facility] 06-10-2022 10:50-0500 Heart rate 72 /min Christ Rodriguez [facility] 06-10-2022 10:50-0500 Mean blood pressure 105 mm[Hg] Christ Rodriguez [facility] 06-10-2022 10:50-0500 Respiratory rate 18 /min Christ Rodriguez [facility] 06-10-2022 10:50-0500 Systolic blood pressure 146 mm[Hg] Christ Rodriguez [facility] 06-02-2022 12:49-0500 Diastolic blood pressure 74 mm[Hg] [place] Walsh [facility] 06-02-2022 12:49-0500 Heart rate 59 /min Indianajoyce Walsh [facility] 06-02-2022 12:49-0500 Mean blood pressure 91 mm[Hg] Indianajoyce Walsh [facility] 06-02-2022 12:49-0500 Respiratory rate 18 /min Indianajoyce Walsh [facility] 06-02-2022 12:49-0500 Systolic blood pressure 126 mm[Hg] Indianajoyce Walsh [facility] 04-30-2022 08:56-0500 Heart rate 56 /min Chad Zumbar [facility] 04-30-2022 08:56-0500 SaO2% (BldA) [Mass fraction] 94 % Chad Zumbar [facility] 04-30-2022 08:56-0500 Diastolic blood pressure 70 mm[Hg] Chad Zumbar [facility] 04-30-2022 08:56-0500 Mean blood pressure 87 mm[Hg] Chad Zumbar [facility] 04-30-2022 08:56-0500 Systolic blood pressure 119 mm[Hg] Chad Zumbar [facility] 04-30-2022 08:56-0500 Respiratory rate 16 /min Chad Zumbar [facility] 04-30-2022 08:50-0500 Diastolic blood pressure 72 mm[Hg] Chad Zumbar [facility] 04-30-2022 08:50-0500 Heart rate 58 /min Chad Zumbar [facility] 04-30-2022 08:50-0500 Respiratory rate 16 /min Chad Zumbar [facility] 04-30-2022 08:50-0500 SaO2% (BldA) [Mass fraction] 93 % Chad Zumbar [facility] 04-30-2022 08:50-0500 Systolic blood pressure 114 mm[Hg] Chad Zumbar [facility] 04-30-2022 08:14-0500 Diastolic blood pressure 56 mm[Hg] Chad Zumbar [facility] 04-30-2022 08:14-0500 Heart rate 57 /min Chad Zumbar [facility] 04-30-2022 08:14-0500 Mean blood pressure 77 mm[Hg] Chad Zumbar [facility] 04-30-2022 08:14-0500 Systolic blood pressure 120 mm[Hg] Chad Zumbar [facility] 04-30-2022 08:13-0500 Respiratory rate 14 /min Chad Zumbar [facility] 04-30-2022 08:13-0500 SaO2% (BldA) [Mass fraction] 94 % Chad Zumbar [facility] 04-30-2022 08:12-0500 Body temperature 97.52 [degF] Chad Zumbar [facility] 03-27-2022 15:35-0500 Diastolic blood pressure 61 mm[Hg] Chad Zumbar [facility] 03-27-2022 15:35-0500 Heart rate 58 /min Chad Zumbar [facility] 03-27-2022 15:35-0500 Mean blood pressure 83 mm[Hg] Chad Zumbar [facility] 03-27-2022 15:35-0500 Respiratory rate 16 /min Chad Zumbar [facility] 03-27-2022 15:35-0500 Systolic blood pressure 127 mm[Hg] Chad Zumbar [facility] 01-23-2022 13:01-0400 Diastolic blood pressure 91 mm[Hg] Chad Zumbar [facility] 01-23-2022 13:01-0400 Diastolic blood pressure 84 mm[Hg] Chad Zumbar [facility] 01-23-2022 13:01-0400 Heart rate 91 /min Chad Zumbar [facility] 01-23-2022 13:01-0400 Heart rate 61 /min Chad Zumbar [facility] 01-23-2022 13:01-0400 Mean blood pressure 103 mm[Hg] Chad Zumbar [facility] 01-23-2022 13:01-0400 Respiratory rate 14 /min Chad Zumbar [facility] 01-23-2022 13:01-0400 Respiratory rate 16 /min Chad Zumbar [facility] 01-23-2022 13:01-0400 Systolic blood pressure 151 mm[Hg] Chad Zumbar [facility] 01-23-2022 13:01-0400 Systolic blood pressure 142 mm[Hg] Chad Zumbar [facility] 01-08-2022 14:47-0400 Respiratory rate 16 /min XUAN STALLWORTH [facility] 11-26-2021 15:00-0400 Body height 158.75 cm Angela Rodriguez Other [employer] Other 11-26-2021 15:00-0400 Body mass index (BMI) [Ratio] 38.51 kg/m2 Anglea Rodriguez Other [employer] Other 11-26-2021 15:00-0400 Body temperature 101 [degF] Angela Rodriguez Other [employer] Other 11-26-2021 15:00-0400 Body weight 97.07 kg Angela Rodriguez Other [facility] [employer] Other 11-26-2021 15:00-0400 SaO2% (BldA) [Mass fraction] 91 % Angela Rodriguez Other [facility] Other 11-21-2021 15:30-0400 Diastolic blood pressure 88 mm[Hg] Chad Zumbar [facility] 11-21-2021 15:30-0400 Heart rate 60 /min Chad Zumbar [facility] 11-21-2021 15:30-0400 Mean blood pressure 113 mm[Hg] Chad Zumbar [facility] 11-21-2021 15:30-0400 Respiratory rate 16 /min Chad Zumbar [facility] 11-21-2021 15:30-0400 Systolic blood pressure 162 mm[Hg] Chad Zumbar [facility] 11-07-2021 12:00-0400 Diastolic blood pressure 80 mm[Hg] Susie Guzmán Jr. [facility] 11-07-2021 12:00-0400 Heart rate 56 /min Susie Guzmán Jr. [facility] 11-07-2021 12:00-0400 Respiratory rate 18 /min Susie Guzmán Jr. [facility] 11-07-2021 12:00-0400 SaO2% (BldA) [Mass fraction] 96 % Susie Guzmán Jr. [facility] 11-07-2021 12:00-0400 Systolic blood pressure 175 mm[Hg] Susie Guzmán Jr. [facility] 11-07-2021 11:13-0400 Blood Pressure Location Susie Guzmán Jr. [facility] 11-07-2021 11:13-0400 Body temperature 97.52 [degF] Susie Guzmán Jr. [facility] 11-07-2021 11:13-0400 Diastolic blood pressure 90 mm[Hg] Susie Guzmán Jr. [facility] 11-07-2021 11:13-0400 Heart rate 59 /min Susie Guzmán Jr. [facility] 11-07-2021 11:13-0400 Mean blood pressure 120 mm[Hg] Susie Guzmán Jr. [facility] 11-07-2021 11:13-0400 Respiratory rate 20 /min Susie Guzmán Jr. [facility] 11-07-2021 11:13-0400 SaO2% (BldA) [Mass fraction] 97 % Susie Guzmán Jr. [facility] 11-07-2021 11:13-0400 Systolic blood pressure 181 mm[Hg] Susie Guzmán Jr. [facility] 11-07-2021 11:05-0400 Body temperature 96.8 [degF] Susie Guzmán Jr. [facility] 11-07-2021 11:05-0400 Diastolic blood pressure 93 mm[Hg] Susie Guzmán Jr. [facility] 11-07-2021 11:05-0400 Heart rate 61 /min Susie Guzmán Jr. [facility] 11-07-2021 11:05-0400 Respiratory rate 22 /min Susie Guzmán Jr. [facility] 11-07-2021 11:05-0400 SaO2% (BldA) [Mass fraction] 97 % Susie Guzmán Jr. [facility] 11-07-2021 11:05-0400 Systolic blood pressure 177 mm[Hg] Susie Guzmán Jr. [facility] 11-07-2021 10:50-0400 Respiratory rate 19 /min Susie Guzmán Jr. [facility] 11-07-2021 10:45-0400 Respiratory rate 15 /min Susie Guzmán Jr. [facility] 11-07-2021 10:38-0400 Body temperature 96.8 [degF] Susie Guzmán Jr. [facility] 11-07-2021 08:04-0400 Mean blood pressure 119 mm[Hg] Susie Guzmán Jr. [facility] 11-07-2021 07:54-0400 Mean blood pressure 108 mm[Hg] Susie Guzmán Jr. [facility] 11-07-2021 07:53-0400 Body temperature 98.06 [degF] Susie Guzmán Jr. [facility] 11-07-2021 07:53-0400 Respiratory rate 20 /min Susie Guzmán Jr. [facility] 11-07-2021 07:53-0400 Heart rate 66 /min Susie Guzmán Jr. [facility] 10-23-2021 13:46-0400 Diastolic blood pressure 94 mm[Hg] Chad Salas [facility] 10-23-2021 13:46-0400 Heart rate 57 /min Chad Zumbar [facility] 10-23-2021 13:46-0400 Mean blood pressure 122 mm[Hg] Chad Zumbar [facility] 10-23-2021 13:46-0400 SaO2% (BldA) [Mass fraction] 95 % Chad Zumbar [facility] 10-23-2021 13:46-0400 Systolic blood pressure 179 mm[Hg] Chad Zumbar [facility] 10-23-2021 13:46-0400 Respiratory rate 12 /min Chad Zumbar [facility] 10-23-2021 13:44-0400 Diastolic blood pressure 100 mm[Hg] Chad Zumbar [facility] 10-23-2021 13:44-0400 Systolic blood pressure 194 mm[Hg] Chad Zumbar [facility] 10-23-2021 13:36-0400 Diastolic blood pressure 106 mm[Hg] Chad Zumbar [facility] 10-23-2021 13:36-0400 Heart rate 71 /min Chad Zumbar [facility] 10-23-2021 13:36-0400 Respiratory rate 16 /min Chad Zumbar [facility] 10-23-2021 13:36-0400 SaO2% (BldA) [Mass fraction] 98 % Chad Zumbar [facility] 10-23-2021 13:36-0400 Systolic blood pressure 199 mm[Hg] Chad Zumbar [facility] 10-23-2021 12:31-0400 Body temperature 98.24 [degF] Chad Zumbar [facility] 10-23-2021 12:31-0400 Heart rate 64 /min Chad Salas [facility] 10-23-2021 12:31-0400 Mean blood pressure 111 mm[Hg] Chad Salas [facility] 10-23-2021 12:31-0400 SaO2% (BldA) [Mass fraction] 94 % Chaddavid Salas [facility] 10-23-2021 12:29-0400 Respiratory rate 14 /min Chad Salas [facility] 10-22-2021 11:05-0400 Blood Pressure Location Susie Guzmán Jr. [facility] 10-22-2021 11:05-0400 Diastolic blood pressure 70 mm[Hg] Susie Guzmán Jr. [facility] 10-22-2021 11:05-0400 Heart rate 68 /min Susie Guzmán Jr. [facility] 10-22-2021 11:05-0400 Systolic blood pressure 124 mm[Hg] Susie Guzmán Jr. [facility] 09-25-2021 14:30-0400 Body height 158.75 cm Lonnie Vuong Other [facility] Other 09-25-2021 14:30-0400 Body mass index (BMI) [Ratio] 38.51 kg/m2 Lonnie Vuong Other [facility] [employer] Other 09-25-2021 14:30-0400 Body weight 97.07 kg Lonnie Vuong Other [facility] Other Encounters Encounter Date Encounter Type Care Provider Facility Start: 06-22-2023 End: 06-22-2023 ambulatory [facility] Start: 06-03-2023 End: 06-03-2023 ambulatory ABDI ACOSTA Not Available Start: 05-21-2023 End: 05-22-2023 ambulatory Prudencio Payan Facility[facility] Start: 05-21-2023 End: 05-22-2023 ambulatory DO Prudencio Payan Facility:[facility] Start: 05-21-2023 End: 05-21-2023 Patient encounter procedure Prudencio Payan [facility] Start: 05-21-2023 End: 05-21-2023 Pain Management Prudencio Payan [facility] Start: 03-18-2023 End: 03-18-2023 ambulatory JULI [facility] Start: 02-12-2023 End: 02-13-2023 ambulatory DO Prudencio Payan Facility:[facility] Start: 01-21-2023 End: 01-22-2023 ambulatory Prudencio Payan Facility:[facility] Start: 01-21-2023 End: 01-21-2023 Patient encounter procedure Prudencio Payan [facility] Start: 12-26-2022 End: 12-27-2022 ambulatory Indiana Walsh Facility:[facility] Start: 12-26-2022 End: 12-26-2022 Patient encounter procedure Indiana Walsh [facility] Start: 12-26-2022 End: 12-26-2022 Pain Management Indiana Walsh [facility] Start: 09-26-2022 End: 09-27-2022 ambulatory Indiana Walsh Facility:[facility] Start: 09-16-2022 End: 09-17-2022 ambulatory Radha Angulo Facility:[facility] Eri gomez Start: 09-12-2022 End: 09-12-[address] SCOTT YORK . Facility: Start: 08-05-2022 End: 08-06-2022 ambulatory UNKNOWN PROVIDER Facility:[facility] Start: 08-05-2022 End: 08-06-2022 Office outpatient visit 15 minutes Christ Rodriguez MD Work Phone: [facility] Comment on above: Cervical spondylosis with myelopathy (Primary Dx) Start: 08-05-2022 ambulatory Indiana Walsh Facilit y:[facility] Connor Start: 08-04-2022 Letter encounter [facility] Start: 07-30-2022 End: 07-31-2022 Orders Only Christ Rodriguez MD Work Phone: [facility] Neurosurgery Comment on above: Cervical spondylosis with myelopathy Start: 07-04-2022 End: 07-05-2022 ambulatory Indiana Walsh Facility:[facility] Start: 07-04-2022 End: 07-04-2022 Patient encounter procedure Indiana Walsh [facility] Start: 07-04-2022 End: 07-04-2022 Pain Management Indiana Walsh [facility] Start: 06-12-2022 End: 06-12-2022 Patient encounter procedure Chad Salas [facility] Start: 06-10-2022 End: 06-10-2022 Patient encounter procedure Christ Rodriguez [facility] Start: 06-06-2022 End: 06-07-[address] ANGELY DUENAS Facility:[facility] Start: 06-02-2022 End: 06-02-2022 Patient encounter procedure Indiana Walsh [facility] Start: 06-02-2022 End: 06-02-2022 Pain Management Indiana Walsh [facility] Start: 05-20-2022 End: 05-21-[address] SANAZ LAKE . Facility:[facility] Start: 05-07-2022 End: 05-08-[address] ABDI ACOSTA Facility:[facility] Start: 04-30-2022 End: 04-30-2022 Pain Management Chad Salas [facility] Start: 04-24-2022 End: 04-25-[address] ABDI ACOSTA Facility:[facility] Start: 04-07-2022 End: 04-08-[address] SANAZ LAKE . Facility:[facility] Start: 04-01-2022 End: 04-01-2022 Patient encounter procedure Chad Peraltaumbar [facility] Start: 03-31-2022 End: 04-01-[address] VENKAT TOBIAS Facility:[facility] Start: 03-27-2022 End: 03-27-2022 Pain Management Chad Zumbar [facility] Start: 02-14-2022 End: 02-16-2022 Evaluation and management of inpatient DR FER MCKENNA . Facility:[facility] Start: 01-23-2022 End: 01-23-2022 Pain Management Chad Zumbar [facility] Start: 01-17-2022 End: 01-17-2022 Patient encounter procedure Dakotah EMERY [facility] Start: 01-16-[address] [facility] Start: 01-15-2022 End: 01-15-2022 Patient encounter procedure Savannah ChangBita Franc [facility] Start: 01-10-2022 End: 01-11-2022 ambulatory XUAN STALLWORTH Facility:[facility] Start: 01-08-2022 End: 01-08-2022 Patient encounter procedure XUAN Donaldo BASIM [facility] Start: 01-07-2022 End: 01-08-[address] SUSIE Sunshine Facility:[facility] Start: 12-17-2021 End: 12-18-[address] SANAZ LAKE . Facility:[facility] Start: 11-26-2021 End: 11-26-2021 ambulatory Angela Rodriguez Other [facility] Other Start: 11-26-2021 Office outpatient visit 15 minutes Angela Rodriguez [facility] Start: 11-21-2021 End: 11-21-2021 Patient encounter procedure Chadmynor Salas [facility] Start: 11-21-2021 End: 11-21-2021 Pain Management Chad Salas [facility] Start: 11-08-2021 End: 11-08-[address] SANAZ LAKE . Facility:[facility] Start: 11-07-2021 End: 11-07-2021 Admission to same day surgery center Susie Guzmán Jr. [facility] Start: 10-31-2021 End: 10-31-2021 Patient encounter procedure Susie Guzmán Jr. [facility] Start: 10-31-2021 End: 10-31-[address] SANAZ LAKE . Facility:[facility] Start: 10-30-2021 End: 10-30-2021 ambulatory Lonnie Vuong Other [facility] Other Start: 10-30-2021 Telephone encounter Lonnie Vuong [facility] G[facility] Start: 10-25-2021 End: 10-26-[address] SANAZ LAKE . Facility:[facility] Start: 10-23-2021 End: 10-23-2021 Pain Management Chad Zshannon [facility] Start: 10-22-2021 End: 10-22-2021 Patient encounter procedure Susie Guzmán Jr. [facility] Start: 10-10-2021 End: 10-10-[address] SANAZ LAKE . Facility:[facility] Start: 10-09-2021 End: 10-09-2021 ambulatory Lonnie Vuong Facility:[facility] Start: 09-25-2021 End: 09-25-2021 ambulatory Lonnie Vuong Other [facility] Other Start: 09-25-2021 Office outpatient visit 25 minutes Lonnie Vuong [facility] G[facility] Start: 09-24-2021 End: 09-25-[address] SANAZ LAKE . Facility:[facility] Start: 09-23-2021 End: 09-24-[address] SANAZ LAKE . Facility:[facility] Start: 11-02-2020 End: 11-03-2020 ambulatory PROVIDER UNKNOWN Facility:[facility] Procedures Date Procedure Procedure Detail Performing Clinician Start: 01-21-2023 Epidural injection o f lumbar spine using fluoroscopic guidance Prudencio Payan Comment on above: L5-S1 30% relief Start: 07-30-2022 End: 07-30-2022 MR NEURO IMAGE IMPORT Christ Lopez Work Phone: Start: 07-30-2022 End: 07-30-2022 XRAY HEAD/SPINE IMAGE IMPORT Christ Rodriguez MD Work Phone: Start: 04-30-2022 Epidural injection o f lumbar spine using fluoroscopic guidance Indiana Jillian Comment on above: L5/S1-50% relief Start: 11-07-2021 [...] sacroil iac joint using fluoroscopic guidance Susie Guzámn Jr. Comment on above: B/L 75% relief Start: 12-09-2018 Partial substernal thyroidectomy Susie Guzmán Jr. Comment on above: right Start: 08-04-2018 Injection of sacroil iac joint using fluoroscopic guidance Susie Guzmán Jr. Comment on above: 65% relief to presen t Start: 06-01-2018 Arthroplasty of knee Do fiona Guzmán Jr. [...] 04-01-2017 sacroiliac joint inj ection 19 Chad Salas Comment on above: B/L 40% relief Start: 04-01-2017 sacroiliac joint inj ection 20 Indiana Walsh Comment on above: B/L 40% relief Start: 04-01-2017 sacroiliac joint inj ection 21 Prudencio Payan Comment on above: B/L 40% relief Start: 12-09-2016 Gel shots in left knee 19 Susie Guzmán Jr. Comment on above: 3 times 0% relief Start: 12-09-2016 Gel shots in left knee 20 Chad Salas Comment on above: 3 times 0% relief Start: 12-09-2016 Gel shots in left knee 21 Indiana Walsh Comment on above: 3 times 0% relief Start: 12-09-2016 Gel shots in left knee 22 Prudencio Payan Comment on above: 3 times 0% relief [...] Cholesterol [Mass/volume] in Serum or Plasma Cholesterol [facility] Start: 08-05-2022 End: 08-05-2022 Patient encounter procedure 08/05/2022 Office Visit Orthopedics Christ Rodriguez MD [address] [place] [address] [facility] Start: 02-08-2022 Influenza vaccination Influenza Vaccine (#1) [facility] Start: 01-10-2016 Annual wellness visit Annual Wellness Visit ([id number]) [facility] Start: 2015 Pneumococcal vaccination Pneumococcal Vaccine(s) (65+ yrs) (1 - PCV) [facility] Start: 2015 Screening for osteoporosis Bone Densitometry [facility] Start: 01-31-2000 Shingles (RZV) Vaccine (1 of 2) [facility] (RZV) [facility] Start: 1995 Cholesterol [Mass/volume] in Serum or Plasma [facility] Start: 1995 Screening for malignant neoplasm of colon [facility] Start: 1990 Screening for malignant neoplasm of breast Mammography [facility] Start: 01-31-1968 Hepatitis C screening Hepatitis C Antibody [facility] Start: 01-31-1968 Tetanus + diphtheria + acellular pertussis vaccine (product) Tdap Booster [facility] Start: 1950 Screening for malignant neoplasm of colon Colonoscopy [facility] Immunizations Immunization Date Immunization Notes Care Provider Fa cili 02-15-2022 influenza, high dose seasonal, preservative-free [facility] 05-15-2021 SARS-CoV-2 (COVID-19 ) mRNA BNT-162b2 vax Chad Zumbar [facility] 04-27-2021 influenza virus vacc ine, unspecified formulation Chad Zumbar [facility] 08-07-2020 SARS-CoV-2 (COVID-19 ) mRNA BNT-162b2 vax Chad Zumbar [facility] 07-16-2020 SARS-CoV-2 (COVID-19 ) mRNA BNT-162b2 vax Chad Zumbar [facility] 07-09-2020 SARS-CoV-2 (COVID-19 ) mRNA BNT-162b2 deseanx Susie Guzmán Jr. [facility] 06-11-2020 SARS-CoV-2 (COVID-19 ) mRNA BNT-162b2 chucky Guzmán Jr. [facility] 02-26-2019 influenza virus vacc ine, unspecified formulation Chad Zumbar [facility] 02-26-2019 pneumococcal polysaccharide vaccine, 23 valent Chad Zumbar [facility] 02-21-2019 influenza virus vacc ine, unspecified formulation Chad Zumbar [facility] 02-17-2018 pneumococcal polysaccharide vaccine, 23 valent Chad Zumbar [facility] 02-09-2018 influenza virus vacc ine, unspecified formulation Chad Zumbar [facility] 02-09-2018 pneumococcal conjuga te vaccine, 13 valent Chad Zumbar [facility] 02-08-2017 influenza virus vacc ine, unspecified formulation Chad Zumbar [facility] 03-12-2015 influenza virus vacc ine, unspecified formulation Chad Zumbar [facility] 03-23-2014 influenza virus vacc ine, unspecified formulation Chad Zumbar [facility] 03-10-2003 pneumococcal polysaccharide vaccine, 23 valent Chad Zumbar [facility] Payers Date Payer Category Payer Medicare MEDICARE - RAILR OAD MEDICARE [employer] [id number] 2015-Present [address] [address] [place] [address] Medicare [id number] 2015 Unknown [id number] 1959 Medicare [id number] 1959 Self-pay 1959 Unknown [id number] 1950 Unknown [id number] 2.16.840.1.843896.3.579.2.647 1950 Unknown [id number] 2.16.840.1.667344.3.579.2.732 1950 Unknown [id number] 2.16.840.1.727271.3.579.2.732 1950 Unknown [id number] 2.16.840.1.382547.3.579.2.732 1950 Unknown [id number] 2.16.840.1.903346.3.579.2.73 1950 Unknown [id number] 2.16.840.1.015716.3.579.2.73 1950 Unknown [id number] 2.16.840.1.441986.3.579.2.73 1950 Unknown [id number] 2.16.840.1.858688.3.579.2.59 1950 Unknown [id number] 2.16.840.1.998458.3.579.2.59 1950 Unknown [id number] 2.16.840.1.826324.3.579.2.59 1950 Unknown [id number] 2.16.840.1.030023.3.579.2.59 1950 Unknown [id number] 2.16.840.1.914209.3.579.2.59 1950 Unknown [id number] 2.16.840.1.393615.3.579.2.593 1950 Unknown [id number] 2.16.840.1.934993.3.579.2.59 1950 Unknown [id number] 2.16.840.1.876442.3.579.2.59 1950 Unknown [id number] 2.16.840.1.210875.3.579.2.59 1950 Unknown [id number] 2.16.840.1.677169.3.579.2.593 1950 Unknown [id number] 2.16.840.1.998222.3.579.2.593 1950 Unknown [id number] 2.16.840.1.995237.3.579.2.593 1950 Unknown [id number] 2.16.840.1.750111.3.579.2.593 1950 Unknown [id number] 2.16.840.1.871922.3.579.2.593 1950 Unknown [id number] 2.16.840.1.644577.3.579.2.593 1950 Unknown [id number] 2.16.840.1.907089.3.579.2.593 1950 Unknown [id number] 2.16.840.1.621989.3.579.2.593 1950 Unknown [id number] 2.16.840.1.119441.3.579.2.593 1950 Unknown [id number] 2.16.840.1.910798.3.579.2.593 1950 Unknown [id number] 2.16.840.1.179436.3.579.2.125 9 1950 Unknown [id number] 2.16.840.1.222479.3.579.2.727 1950 Unknown [id number] 2.16.840.1.184051.3.579.2.727 1950 Unknown [id number] 2.16.840.1.495319.3.579.2.727 1950 Unknown [id number] 2.16.840.1.167577.3.579.2.727 1950 Unknown [id number] 2.16.840.1.461349.3.579.2.727 1950 Unknown [id number] 2.16.840.1.947660.3.579.2.727 1950 Unknown [id number] 2.16.840.1.669226.3.579.2.727 1950 Unknown [id number] 2.16.840.1.739281.3.579.2.727 1950 Unknown [id number] 2.16.840.1.034118.3.579.2.727 1950 Unknown [id number] 2.16.840.1.276749.3.579.2.727 Unknown [id number] 2.16.840.1.460700.3.579.2.593 Unknown [id number] 2.16.840.1.442009.3.579.2.531 Social History Date Type Detail Facility Start: 05-31-2021 End: 01-08-2022 Tobacco smoking status Ex-smoker (finding) [facility] Other Sex Assigned At Female [facility] Other Tobacco smoking status [facility] Tobacco smoking consumption unknown [facility] Start: 1950 Sex Assigned At Not on file [facility] History of tobacco use Current smoker [facility] History of tobacco use Cigarette Smoker [facility] Start: 08-05-2022 Tobacco use and exposure Smokeless tobacco non-user [facility] Start: 1950 Sex Assigned At Female F [facility] Medical Equipment Procedure Code Equipment Code Equipment Origin al Text Equipment Identifier Dates Capsule endoscopy, for patency of lumen evaluation Video capsule endoscopy system ([id number] FDA Start: 09-11-2021 CERVICAL FUSION POSTERIOR Christ Rodriguez MD 06/28/19 Unknown Back FDA Start: 06-28-2019 CERVICAL FUSION POSTERIOR Christ Rodriguez MD 06/28/19 Unknown Back FDA Start: 06-28-2019 CERVICAL FUSION POSTERIOR Christ Rodriguez MD 06/28/19 Unknown Back FDA Start: 06-28-2019 CERVICAL FUSION Christ Castro MD 06/28/19 Unknown Back FDA Start: 06-28-2019 CERVICAL FUSION Christ Castro MD 06/28/19 Unknown Back FDA Start: 06-28-2019 CERVICAL FUSION POSTERIOR Christ Rodriguez MD 06/28/19 Unknown Back FDA Start: 06-28-2019 CERVICAL [...] Start: 06-28-2019 CERVICAL FUSION POSTERIOR Emigdio SOMMERS, Chrits A 06/28/19 Unknown Back FDA Start: 06-28-2019 [...] FDA Start: 06-28-2019 CERVICAL FUSION POSTERIOR Emigdio SOMMERS Christ Nugent 06/28/19 Unknown Back FDA Start: 06-28-2019 CERVICAL FUSION POSTERIOR Christ Rodriguez MD 06/28/19 Unknown Back FDA Start: 06-28-2019 Functional Status Date Assessment Result Facility 05-21-2023 Functional Status N/A [facility] 01-21-2023 Functional Status N/A [facility] 12-26-2022 Functional Status N/A [facility] 07-04-2022 Functional Status N/A [facility] 06-10-2022 Functional Status N/A [facility] 06-02-2022 Functional Status N/A [facility] 04-30-2022 Functional Status N/A [facility] 03-27-2022 Functional Status N/A [facility] 01-23-2022 Functional Status N/A [facility] 01-15-2022 Functional Status N/A [facility] 01-08-2022 Functional Status N/A [facility] 11-21-2021 Functional Status N/A [facility] 10-31-2021 Functional Status No [facility] 10-23-2021 Functional Status N/A [facility] 10-22-2021 Functional Status N/A [facility] Clinical Notes 09-25-2021 to 06-22-2023 Note Date & Type Note Facility 06-22-2023 Note [place] Cardiology - [facility] Subjective Diann Linder is a 73 y.o. year old female patient being seen for 3 mo follow up CAD, WARREN, and chest pain. She had echo and labs in Mar 2023. She says her cask maker changed her thyroid medication and she's felt better since then. Less fatigue, denies chest pain. SOB/WARREN remains unchanged. Patient Active Problem List Diagnosis Coronary arteriosclerosis Dyspnea on exertion High blood pressure Anxiety and depression Arthritis Back pain Sacroiliac joint dysfunction of both sides Smoking Spondylolisthesis at L4-L5 level Trigeminal neuralgia of left side of face Abnormal kidney function Anemia C. 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 I saw her as a new patient on [...] in February 2022 she was admitted to the [facility] with acute on chronic diastolic heart failure and acu (more content not included)... [facility] 05-21-2023 Evaluation + Plan note Extrac evie from: Title:Pain Management * Author:Niel Payan DO. Date:05/21/23 Impression and Plan History, physical examination, and personal review of pertinent imaging results indicate a diagnosis of: -Cervical radiculopathy and cervical postlaminectomy pain syndrome -Lumbosacral spondyloarthropathy Plan: -Refill gabapentin and Quemado, update controlled substance agreement as appropriate and obtain urine drug screen as needed, [place]ARRS reviewed and appropriate -Will schedule the patient for bilateral L3 and 4 medial branch and L5 posterior ramus nerve blocks to target the nerves supplying the L4/5 and L5/S1 facet joints under fluoroscopic guidance Patient was counseled on the above diagnosis and treatment, all questions were answered and patient agrees to adhere to the plan above. Risk and benefits of appropriate procedures and medications were reviewed as well with patient, who voiced understanding and agreeance. Patient was counseled on appropriate use of opioids if prescribed or renewed today and naloxone was offered to patient if opioids were prescribed or maintained at this visit. Patient was counseled on smoking cessation and/or continuing to abstain from nicotine/tobacco products as appropriate based on history; as smoking/nicotine can contribute to increased pain overall and decreased wound healing. Patient counseled on maintaining a healthy BMI as part of the total treatment of their pain and to reduce stress/strain on joints. Patient invited to return or call with any questions or concerns that arise. [facility]11-08-2023 NotePatient here for 1 year follow up CAD, [...] myalgias and neck pain. Neurological: Positive for weakness.[facility] 03-18-2023 NoteUT Cardiology - [facility] Subjective Diann Linder is [...] stones Renal mass Sleep apnea Thyroid cancer (CMS/HCC) Family History Problem Relation Name Age of Onset Heart failure Mother Social History Tobacco Use Smoking status: Every Day Types: Cigarettes Smokeless tobacco: Never Substance Use Topics Alcohol use: Yes Comment: occasional Drug use: Never HPI Diann is seen in follow-up. Dr. Tobias [...] in February 2022 she was admitted to (more content not included)...[facility]09-13-2023 Evaluation + Plan noteExtracted from: Title:L5/S1 interlaminar epi dural steroid injection under fluoroscopy Author:Prudencio Payan DO Date:01/21/23 L5/S1 interlaminar epidural steroid injection under [...] the epidural space was confirmed using the [id number] technique and 2 cc of air. Injection [...] Date:02/12/2023 12:30:00 PM Scheduled Provider:Prudencio Payan DO Location:.[facility] Appointment Type:Pain Management - Follow Up (FT) [facility]09-13-2023 Note [id number]:[id number] 12-26-2022 Evaluation + Plan noteExtracted from: Title:Pain [...] necessary. In the meantime, she intermittently uses Quemado 5/325 twice daily as needed pain. She tolerates this well. She is requesting a refill today. OARRS was reviewed. Most recent UDS was reviewed. We will obtain an updated UDS today for compliance purposes. A refill be sent to her pharmacy. She will follow-up as above mentioned LILIANE score: 47% [facility]03-29-2023 History of Present illness Narrative* Christ [...] 02jun2022 shows 4mm subluxation C2-3 MRI cervical [id number] C7-T1 spondy with mild cord compression IMP: [...] cane Charline Velazquez RN documented in this [id number] Evaluation + Plan note Extracted from: Title:Pain Managment Follow up Author:nIdiana Howard Date:07/04/22 Patient: DIANN LINDER Age: 72 [...] gave her 50% relief. She intermittently uses Quemado 5/325 twice daily as needed pain. She can only walk around the grocery store if she has a cart. Previous physical therapy did not help. Previous injection did give some relief but not quite enough. She did see Dr. Christ Rodriguez. He had ordered the MRI of the cervical spine. Unfortunate, she does not want to travel all the way to [facility] to see him. She wonders if there is somebody locally she can see if it is needed. Health Status Allergies: Allergic Reactions (Selected) Severity Not Documented Amoxicillin- Hives., Allergies (1) ActiveReaction amoxicillinHives Current medications: (Selected) Prescriptions Prescribed Levsin 0.125 mg SL Tab: 0.125 mg = 1 tab(s), Oral, QID, PRN Spasm, # 20 tab(s), Refills(s) 0, [id number], cm, 10/31/21 16:20:00 EDT, Height/Length Dosing, 97.9, kg, 10/31/21 16:20:00 EDT, Weight Dosing Quemado 325 mg-5 mg oral tablet: 1 tab(s), Oral, BID as needed for pain, 60 tab(s), Refill(s) 0, [id number], cm, 06/02/22 12:59:00 EST, Height/Length Dosing, 101.6, kg, 03/27/22 15:44:00 EST, Weight Dosing Quemado 325 mg-5 mg oral tablet: 1 tab(s), Oral, BID as needed for pain, 60 tab(s), Refill(s) 0, [id number], cm, 09/18/21 13:15:00 EDT, Height/Length Dosing, 95.2, kg, 05/31/21 12:51:00 EST, Weight Dosing Quemado 325 mg-5 mg oral tablet: 1 tab(s), Oral, BID as needed for pain, 60 tab(s), Refill(s) 0, [facility], 158, cm, 07/04/22 14:50:00 EST, Height/Length Dosing, 99, kg, 07/04/22 14:50:00 EST, Weight Dosing gabapentin 300 mg Cap: See Instructions, 1 cap(s) Oral Qam 2 caps QHS, # 270 cap(s), Refills(s) 0, Pharmacy: [facility], 158, cm, 05/31/21 12:51:00 EST, Height/Length Dosing, 95.2, kg, 05/31/21 12:51:00 EST, Weight Dosing gabapentin 300 mg Cap: See Instructions, one cap in AM, 2 caps at bedtime., # 270 cap(s), Refills(s) 0, Pharmacy: [facility], 158, cm, 04/30/22 8:13:00 [...] Problems Chronic back pain / SNOMED CT 252612464 / Confirmed Osteoarthritis / SNOMED CT 3865034727 / Confirmed Hematuria / SNOMED CT 244072391 / Confirmed Anemia / SNOMED CT 271038099 / Confirmed HTN (hypertension) / SNOMED CT 7347452044 / Confirmed Glaucoma / SNOMED CT 32796932 / Confirmed Hypothyroid / SNOMED CT 26335312 / Confirmed C. difficile diarrhea / SNOMED CT 3770492138 / Confirmed Anemia / SNOMED CT 583180103 / Confirmed Arthritis / SNOMED CT 1210352 / Confirmed Heart disease / SNOMED CT 51061227 / Confirmed Hypertension / SNOMED CT 0999075037 / Confirmed Hyperlipidemia / SNOMED CT 83621324 / Confirmed Sleep apnea / SNOMED CT 339684207 / Confirmed Long-term current use of opiate analgesic drug / SNOMED CT 300498018818209 / Confirmed Added secondary to current Opioid Treatment Agreement Kidney stones / SNOMED CT 408063742 / Confirmed Renal mass / SNOMED CT 202658003 / Confirmed Abnormal kidney function / SNOMED CT 81581707 / Confirmed H/O hematuria / SNOMED CT 4731055711 / Confirmed Resolved: At risk for falls / SNOMED CT 375166310 Problem added when Risk for Falls Careplan was initiated. Resolved due to patient discharge. Resolved: At risk for falls / SNOMED CT 929503098 Problem added when Risk for Falls Careplan was initiated. Resolved due to patient discharge. Resolved: Arthritis / SNOMED CT 1866153 Resolved: Anxiety / SNOMED CT 11141335 Resolved: Trigeminal neuralgia of left side of face / SNOMED CT 92830889 Resolved: Osteopenia / SNOMED CT 831243026 Resolved: Hypotension / SNOMED CT 29631498 Resolved: Thyroid cancer / SNOMED CT 7376561462 Resolved: Carpal tunnel / SNOMED CT 994898419 Resolved: Thyroid cancer / SNOMED CT 066991037 Resolved: Liver disease / SNOMED CT 909167249 Resolved: Microscopic hematuria / SNOMED CT 072291962 Canceled: At risk for falls / SNOMED CT 362561907 Problem added when Risk for Falls Careplan was initiated. Resolved due to patient discharge. Canceled: Impaired skin integrity / SNOMED CT 18924530 Problem added on documentation of skin impairments. Resolved due to patient discharge. Canceled: Thyroid nodule / SNOMED CT 011065076 Canceled: At risk for falls / SNOMED CT 344883394 Problem added when Risk for Falls Careplan was initiated. Canceled: Depression / SNOMED CT 04460154 Canceled: Smoker / IMO 328856 Added secondary to documentation in Social History. Canceled: Smoker / SNOMED CT 67450875 Added secondary to documentation in Social History. Canceled: Cancer, uterine / SNOMED CT 0792169315 Canceled: Hematoma / SNOMED CT 2478692126 Objective Vital Signs 07/04/2022 14:40 EST Peripheral [...] Negative on the left Integumentary: Warm, Dry, [place]. Neurologic: Alert, Oriented. Psychiatric: Cooperative, Appropriate mood [...] FINAL REPORT Dictated: 06/15/2022 11:21 am Santos Trjeo MD Signed (Electronic Signature): 06/15/2022 11:21 am [...] on June 15, 2022 11:21 EST Encounter info:[id number], [facility] - [facility], Outpatient, 06/12/2022 - 06/12/2022 * [...] on June 03, 2022 10:34 EST Encounter info:[id number], Clarence Joyce, Outpatient, 06/02/2022 - 06/02/2022 * [...] on June 15, 2022 11:33 EST Encounter info:[id number], Clarence Joyce, Outpatient, 06/12/2022 - 06/12/2022 Impression and Plan [...] want to travel all the way to [facility] to see Dr. Rodriguez. She would like a local referral. We will facilitate this to Dr. Arthur Robison per patient's request. She states that she has had friends who have seen him. In regards to her pain she continues to use Quemado 5/325 twice daily as needed pain. She [...] score: 33 Addendum by Josue SOMMERS, Lamar ry on July 04, 2022 19:27 EST I agree with the FERNANDO assessment and plan. I was available for consultation. [facility]01-23-2023 Evaluation + Plan noteExtracted from: Title:Pain Managment [...] regards to her pain medication she uses Quemado twice daily as needed pain and tolerates [...] Date:07/04/2022 02:30:00 PM Scheduled Provider:Indiana Walsh PA-C Location:FT.[facility] Appointment Type:Pain Management - Follow Up (FT) [facility]09-07-2022 Hospital Discharge instructions Patient Education 01/15/2022 [...] Follow these instructions at home: Medicines Take lkdz-boj-jpfelzj and prescription medicines only as told by [...] to keep your urine pale yellow. ?Take gnxp-mbp-ouirvcp or prescription medicines. 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 ?Change your dressing as told by your [...] 05/23/2016 Document Revised: 11/17/2018 Document Reviewed: 11/17/2018 [employer] Patient Education 2020 [employer] 01/15/2022 09:02:57 Kidney Stones, Xnvc-qq-Exgp Kidney Stones Kidney stones are rock-like masses [...] Follow these instructions at home: Medicines Take vdcd-imr-ymyrouv and prescription medicines only as told by [...] 10/13/2008 Document Revised: 09/13/2019 Document Reviewed: 09/13/2019 [employer] Patient Education 2019 [employer]. Follow Up Care 01/14/2022 14:11:45 With:Franc SOMMERS, SAIMA Willis, URO Address: When: Unknown [facility] [place] 08-31-2022 Hospital Discharge instructions Patient Education 01/08/2022 15:01:38 Kidney Stones, Olao-xo-Blxy Kidney Stones Kidney stones are rock-like masses [...] Follow these instructions at home: Medicines Take mbga-nth-fyddcnq and prescription medicines only as told by [...] 10/13/2008 Document Revised: 09/13/2019 Document Reviewed: 09/13/2019 [employer] Patient Education 2019 [employer]. Follow Up Care 12/25/2021 13:11:33 With:BASIM WATSON, XUAN Fulton, URL Address: [address] [place] [address] When: [facility] Evaluation note* Encounter Date Diagnosis Assessment [...] weeks for the cough to go away [facility] Other 06-30-2022 Hospital Discharge instructions Patient Education [...] Follow these instructions at home: Medicines Take nthn-wil-rczpbam and prescription medicines only as told by [...] 05/16/2008 Document Revised: 08/08/2019 Document Reviewed: 03/18/2017 [employer] Patient Education 2019 [employer]. Follow Up Care 10/30/2021 10:04:42 With:Susie Guzmán Address: [facility] [address] [place] [address]- Business (1) When:2 to 4 weeks Comments:Office follow-up with [facility] x-ray [facility]06-14-2022 Hospital Discharge instructions Patient Education 10/22/2021 12:00:24 Kidney Stones, Kmcu-zf-Ypun Kidney Stones Kidney stones are rock-like masses [...] Follow these instructions at home: Medicines Take rqjk-tzu-hnlrvlm and prescription medicines only as told by [...] 10/13/2008 Document Revised: 09/13/2019 Document Reviewed: 09/13/2019 [employer] Patient Education 2019 [employer]. Follow Up Care 09/10/2021 11:16:40 With:Ramirez Russell MD, VANITA Santo Address: [facility] [address], [place] [address]- When:Within 6 Month(s) Comments:w/ CT abdomen with [facility] 05-18-2022 Evaluation note* Encounter Date Diagnosis Assessment Notes Treatment Notes Treatment Clinical Notes September, Iron deficiency anemia due to chronic blood loss (ICD-10 - D50.0) Patient did have IV iron twice last month and is getting one this month proceed with egd with push. [facility] [facility] Other Evaluation + Plan note Future Appointments Appointment Date:10/23/2021 01:15:00 PM Scheduled Provider: Location:[facility] Pain Management Appointment Type:Surgery FT Appointment Date:11/21/2021 03:30:00 PM Scheduled Provider:Chad Salas MD Location:[facility] [place] Appointment Type:Pain Management - Follow Up (FT) [facility] evaluation + Plan note Future Appointments Appointment Date:11/21/2021 03:30:00 PM Scheduled Provider:Chad Salas MD Location:[facility] [place] Appointment Type:[facility] Management - [facility] Future Appointments Appointment Date:11/07/2021 10:00:00 AM Scheduled Provider: Location:[facility] Surgical Services Appointment Type:Surgery FT Appointment Date:11/21/2021 03:30:00 PM Scheduled Provider:Chad Salas MD Location:[facility] [place] Appointment Type:Pain Management - Follow Up (FT) Diagnostic Tests Pending * Urine Culture 10/31/[address] Future Appointments Appointment Date:01/23/2022 01:00:00 PM Scheduled Provider:Chad Salas MD Location:[facility] [place] Appointment Type:Pain Management - [facility] (FT[facility] [place] [facility] [place] Future Appointments Appointment Date:03/27/2022 03:30:00 PM Scheduled Provider:Chad Salas MD Location:[facility] [place] Appointment Type:[facility] Management - [facility] Future Appointments Appointment Date:06/02/2022 12:45:00 PM Scheduled Provider:Indiana Walsh PA-C Location:[facility] [place] Appointment Type:Pain Management - Follow Up (FT) [facility] + Plan note Future Appointments Appointment Date:07/04/2022 02:30:00 PM Scheduled Provider:Indiana Walsh PA-C Location:[facility] [place] Appointment Type:Pain Management - Follow Up (FT[facility] [place] [facility] note Future Appointments Appointment Date:06/12/2022 12:00:00 PM Scheduled Provider: Location:FT.MRI Appointment Type:MRI Spine (FT) Appointment Date:07/04/2022 02:30:00 PM Scheduled Provider:Indiana Walsh PA-C Location:[facility] [place] Appointment Type:Pain Management - Follow Up (FT) Future Scheduled Tests Radiology* MRI Spine Cervical w/o Contrast 06/12/22 * MRI Spine Lumbar w/o Contrast 06/12/22 [facility]No [facility] Other Evaluation note* Diagnosis Cervical spondylosis with myelopathy- [facility] Cervical spondylosis with myelopathy [facility]* Diagnosis Cervical spondylosis with myelopathy- Primary [facility]No [facility] information [facility]Ohio[facility] Work Phone: History general Narrative - Reported* [...] Surgical History tubal ligation Surgical History THYROIDECTOMY 2018 Surgical History BILATERAL KNEE REPLACEMENTS 201 2019 Surgical History NECK SPINAL CORD COMPRESSION GIORDANO RGERY 2019 Hospitalization History see above Hospitalization History DIVERTICULOSIS [employer] Other Hospital course Narrative No data available for this section [facility] Hospital Discharge instructions No data available for this section [facility] No data available for this section [facility] Summary Purpose Family History No Family History [...] Referral Specialty Diagnoses / Procedures Referred By Radha brady Referred To Contact Radiology Diagnoses Cervical spondylosis with myelopathy Procedures MR NEURO IMAGE IMPORT(HERNAN) DOWNLOAD AyondoHARE IMAGES TO [place] [address] [facility] DIAGNOSTIC RADIOLOGY [address] [place] [address] Referral ID Status Reason Start Date Expiration Date Visits Re quested Visits Authorized [id number] Closed 07/30/2022 07/30/2023 1 1 Referred by: Franc SOMMERS, Savannah Stanley Additional Source Comments INFORMATION SOURCE (unrecogn ized section and content) DATE CREATED AUTHOR 07/31/2018 [facility] DATE CREATED AUTHOR AUTHOR'S ORGANIZ ATION 07/01/2019 [facility] DATE CREATED AUTHOR AUTHOR'S ORGANIZ ATION 11/13/2020 [facility] DATE CREATED AUTHOR AUTHOR'S ORGANIZ ATION 10/04/2021 [facility] dical Specialist DATE CREATED AUTHOR AUTHOR'S ORGANIZ ATION 08/21/2022 [facility] DATE CREATED AUTHOR AUTHOR'S ORGANIZ ATION 09/17/2022 [facility] DATE CREATED AUTHOR AUTHOR'S ORGANIZ ATION 01/10/2023 [facility] DATE CREATED AUTHOR AUTHOR'S ORGANIZ ATION 06/04/2023 [facility] dical Specialists EPIC DATE CREATED AUTHOR AUTHOR'S ORGANIZ ATION 06/23/2023 [facility] DATE CREATED AUTHOR AUTHOR'S ORGANIZ ATION 06/25/2023 Clarence Joyce [facility] Care Team (unrecognized sect ion and content) Personnel Name: SANAZ LAKE MD Address: [address] [place] [address] [place] Name: Xuan Mckeon Personnel Name: SANAZ LAKE MD Address: [address] [address] [place] Name: Xuan Mckeon Personnel Name: SANAZ LAKE MD Address: [address] [address] [place] Name: Xuan Mckeon Personnel Name: SANAZ LAKE MD Address: [address] [address] [place] Name: Xuan Mckeon Personnel Name: SANAZ LAKE MD Address: [address] [address] [place] Name: Xuan Mckeon Personnel Name: SANAZ LAKE MD Address: [address] [address] [place] Name: Xuan Mckeon Personnel Name: SANAZ LAKE MD Address: [address] [address] [place] Name: Xuan Mckeon Personnel Name: SANAZ LAKE MD Address: [address] [facility] [place] Name: Xuan Mckeon Personnel Name: SANAZ LAKE MD Address: [address] [facility] [place] Name: Xuan Mckeon Personnel Name: SANAZ LAKE MD Address: Address: [address] [facility] [place] Name: Xuan Mckeon Personnel Name: SANAZ LAKE MD Address: Address: [address] [facility] [place] Name: Xuan Mckeon Personnel Name: SANAZ LAKE MD Address: Address: [address] [facility] [place] Name: Xuan Mckeon Personnel Name: SANAZ LAKE MD Address: Address: [address] [facility], [address] [place] Name: Xuan Mckeon Personnel Name: SANAZ LAKE MD Address: Address: [address] [facility] [place] Name: Xuan Mckeon Personnel Name: SANAZ LAKE MD Address: Address: [address] [facility] [place] Name: Xuan Mckeon Personnel Name: SANAZ LAKE MD Address: Address: [address] [facility], [address] [place] Name: Xuan Mckeon Personnel Name: SANAZ LAKE MD Address: Address: [address] [facility] [place] Name: Xuan Mckeon Personnel Name: SANAZ LAKE MD Address: Address: [address] [facility] [place] Name: Xuan Mckeon Personnel Name: Jed Piedra MD Address: Address: [address] [address] Name: Xuan Mckeon Personnel Name: Jed Piedra MD Address: Address: [address] [place], [place] [address] Name: Xuan Mckeon Personnel Name: Jed Piedra MD Address: Address: [facility] [address] Name: Xuan Mckeon Personnel Name: Jed Piedra MD Address: Address: [facility] [address] Name: Xuan Mckeon Personnel Name: Jed Piedra MD Address: Address: [facility] [address] Name: Xuan Mckeon REASON FOR VISIT (unrecogniz ed section and content) Specialty Diagnoses / Procedures Referred By Contac t Referred To Contact Radiology Diagnoses Cervical spondylosis with myelopathy Procedures MR NEURO IMAGE IMPORT(HERNAN) DOWNLOAD AyondoHARE IMAGES TO Christ Lee MD [address] [place], [place] [id number] [facility] DIAGNOSTIC RADIOLOGY [address] [place] [address] Referral ID Status Reason Start Date Expiration Date Visits Re quested Visits Authorized [id number] Closed 07/30/2022 07/30/2023 1 1 Reason Comments [...] BE BASED ON THE PRIMARY CLINICAL RECORDS. [facility] [employer] [facility]. provides no warranty or guarantee of the accuracy or completeness of information in this document.
[2023-06-27 11:58] LABS: Chol HDL Ratio 2.7; Cholesterol 147 mg/dL (<=200); HDL Cholesterol 55 mg/dL (40-60); Triglycerides 222 mg/dL (<=150); VLDL CHOLESTEROL 44.4 mg/dL
== END 2023-06-27 10:59 | disposition home or self-care (01) ==
PROVIDERS: PCP Family Medicine; Visit Provider Internal Medicine Interventional Cardiology
DX: I25.10 Atherosclerotic heart disease of native coronary artery without angina pectoris (principal); E78.2 Mixed hyperlipidemia
CPT/HCPCS: 36415; 80061

== ENCOUNTER 2023-06-27 11:03 | Outpatient (OUT) | payer MEDICARE, OTHER, SELFPAY ==
--- OUTSIDE RECORDS SUMMARY | 2023-06-27 11:10 | XMS_ITS | CCD ---
Author Name Unknown Address [address] [place] [address] Organization [facility] Care Team Providers Care Medical Record Consultant Name Role Phone UNKNOWN, PROVIDER Admitting Unavailable [...] Care Unavailable Jed Piedra. Primary Care Physician Lonnie Vuong Attending Unavailable Lonnie Vuong Admitting [...] Amoxicillin Drug Allergy 1 [facility] Repository (20 sources) Amoxicillin; Translations: [amoxicillin] Drug Allergy 0 rash, Hives, Other CytoSolv Other (1 source) Amoxicillin Drug Allergy The [facility] Repository (1 source) Amoxicillin Drug Allergy 2 [facility] Repository Medications Current Medications Medication Drug [...] sources) Opioid Agonist Start: 04-22-2023 End: 05-22-2023 [place] 325 mg-5 mg oral tablet 1 tab(s), Oral, BID as needed for pain, 60 tab(s), Refill(s) 0, [id number], 158, cm, 05/21/23 12:39:00 EST, Height/Length Dosing, 100, kg, 05/21/23 12:39:00 EST, Weight Dosing Start Date: 05/21/23 Status: Ordered Start: 12-26-2022 End: 01-25-2023 [place] 325 mg-5 mg oral table t 1 [...] tablet by mouth every four hours Hydrocodone-Acetaminophen ([place]) 5-325 mg Tablet Discontinued 1 TAB PO Q4H June 08, 2019 1:00am February 06, 2021 6:48am Acidophilus Probiotic Blend (2 sources) Start: 08-30-2019 take 1 capsule by mouth once daily Acidophilus Probiotic Blend 1 cap(s), Oral, Daily, Refill(s) 0 Start Date: 08/30/19 Status: Ordered [id number] 200 actuat albuterol 0.09 mg/actuat metered dose [...] oral capsule (20 sources) Start: 03-13-2021 take 44885 ug by mouth twice daily Biotin Active 52231 MCG PO Twice daily March 13, 2021 [...] tablet by laura th twice daily Biotin 63685 MCG TABS 1 tablet Orally bid 0 Active Biotin Maximum 10494 MCG (3 sources) Biotin Maximum 1 0000 [...] Refill(s) 0 Start Date: 04/02/21 Status: Ordered Denali Calcium with Vitamin D (2 sources) Start: 05-20-2017 take 1 tablet by mouth once daily Denali Calcium with Vitamin D 1 tab(s), Oral, [...] bedtime., # 270 cap(s), Refills(s) 0, Pharmacy: [id number], 158, cm, 05/21/23 12:39:00 EST, Height/Length Dosing, 100, kg, 05/21/23 12:39:00 EST, Weight Dosing Start Date: 05/21/23 Status: Ordered Start: 12-08-2022 gabapentin 300 mg Cap See Instructions, one cap in AM, 2 caps at bedtime., # 270 cap(s), Refills(s) 0, Pharmacy: [facility], 158, cm, 09/26/22 13:04:00 EDT, Height/Length Dosing, 106.6, kg, 09/16/22 13:01:00 EDT, Weight Dosing Start Date: 12/08/22 Status: Ordered Start: 04-25-2021 gabapentin (NE URONTIN) 300 MG capsule Start: 06-08-2019 take 300 mg by mouth once daily at bedtime Gabapentin Active 600 MG PO Daily at bedtime June 08, 2019 1:00am 300mg AM take 1 capsule by [facility] every eight hours Gabapentin 300 MG 1 capsule Orally three times a day Active Glucos Sul 6phc-Jyj-Oxphq-C-Mn (Glucosamine Chondroitin) 550-30-1 mg Capsule (1 source) Start: 06-08-2019 take 1 tablet by mouth twice daily Glucos Sul 9ztq-Quw-Gxaci-C-Mn (Glucosamine Chondroitin) 550-30-1 mg Capsule Active 1 TAB PO Twice daily June 08, 2019 1:00am Glucosamine Chondr 1500 Complx - (3 sources) Glucosamine Jonatan [address] 1500 Complx - as directed Orally twice a day Active Tcxvgjtyfhf-Mwbrryytf-J it C-Mn (Glucosamine Chondr 1500 Complx) CAPS [...] Spasm, # 20 tab(s), Refills(s) 0, Pharmacy: [id number], 158, cm, 10/31/21 16:20:00 EDT, Height/Length Dosing, 97.9, kg, 10/31/21 16:20:00 EDT, Weight Dosing Start Date: 11/07/21 Status: Ordered inulin 200 mg / lactobacillus rhamnosus gg [id number] unt oral capsule (4 sources) Lactobacillus-In ulin ([facility]) CAPS Take by mouth. 0 Active [...] q6hr, # 20 tab(s), Refills(s) 0, [id number] 158, cm, 10/31/21 16:20:00 EDT, Height/Length [...] day(s), # 14 cap(s), Refills(s) 0, Pharmacy: [id number], 158, cm, 10/31/21 16:20:00 EDT, Height/Length [...] BID, # 180 cap(s), Refills(s) 1, Pharmacy: [facility], 158, cm, 02/12/23 12:38:00 [...] day(s), # 90 tab(s), Refills(s) 3, Pharmacy: [facility], 158, cm, 07/04/22 [...] disease (7 sources) Atherosclerotic heart disease of redding coronary artery without angina pectoris; Translations: [ASHD [place] W/O ANGINA PECTORIS] Onset: 03-31-2022 Chronic [...] Onset: 06-09-2022 Chronic Other aftercare (1 source) alf (current) use of aspirin; Translations: [RESIDENTIAL CURRENT USE OF ASPIRIN] Onset: 09-16-2022 Episodic Other aftercare (1 source) Other intermediate manager (current) drug therapy; Translations: [OTH RESIDENTIAL CURRENT DRUG THERAPY] Onset: 09-16-2022 Episodic Other [...] Insurance Correspondence Off 06-23-2023 Insurance Correspondence Office [id number]#1 .00TIFF [facility] Office Visiton 06-22-2023 Follow-up visit [id number] Yasmeen Linder 1950 F Date Provider Department [place] 06/22/2023 VENKAT BRITTON YURIDIA [facility] Family History Problem Relation Age of Onset Heart failure Mother Family Status - Relation Status Age at Mother Level of Service:13244 [place] OFFICE/OUTPATIENT ESTABLISHED LOW MDM 20 MIN Normal [facility] Consultation Noteon 06-09-19 Consultation Note [id number]#1 .00TIFF [facility] Insurance Correspondence Off ice06-05-2023 Insurance Correspondence Office [id number]#2 .00TIFF [facility] Office/Clinic Note-Physician on 06-05-2023 Office/Clinic Note-Physician [id number] #1.00TIFF [facility] Consent for Treatmenton 05-11 Consent for Treatment [id number]# 1.00TIFF [facility] Consent for Treatment [id number]# 1.00TIFF [facility] Consultation Noteon 05-21-19 24 Consultation Note Patient: [...] thus far. She is taking gabapentin and [place] and feels that these are very beneficial [...] 10 mEq Cap-ER 1 tab, Oral, BID [place] 325 mg-5 mg oral tablet 1 tab(s), [...] Histories Past Medical History: Active Thyroid cancer (426031194) Resolved Arthritis (0514131): Resolved. Anxiety (63086681): Resolved. Trigeminal neuralgia of left side of face (98676448): Resolved. Osteopenia (698176766): Resolved. Hypotension (81200714): Resolved. Thyroid cancer (2052500579): Resolved. Carpal tunnel (201648057): Resolved. Liver disease (302245861): Resolved. Microscopic hematuria (583684387): Resolved. Family History: Hypertension Mother Primary malignant neoplasm of female genital organ Mother Heart failure Mother Arthritis Mother Hyperlipidemia Mother Procedure history: Epidural injection of lumbar spine using fluoroscopic guidance (2371473960) on 01/21/2023 at 72 Years. Comments: 02/12/2023 12:36 Ericka Duke RN L5-S1 30% relief Epidural injection of lumbar spine using fluoroscopic guidance (1749657337) on 04/30/2022 at 72 Years. Comments: 06/02/2022 12:54 Denisse Jovel RN L5/S1-50% relief ESWL - Extracorporeal shockwave lithotripsy for renal calculus (593068125) on 11/07/2021 at 71 Years. ALINA L5/S1 (5270792919) on 10/23/2021 at 71 Years. Comments: 11/21/2021 15:36 EDT - Katelynn Kaplan RN L5/S1 60% relief Cystoscope (56135960) on 04/29/2021 at 71 Years. Bilateral L3-L5 RFA (9833679274) on 04/10/2021 at 71 Years. Comments: 05/31/2021 12:43 Katelynn Moscoso RN L3-L5 20% relief Injection of nerve root of lumbar spine using fluoroscopic guidance (7798432680) on 05/16/2020 at 70 Years. Comments: 06/07/2020 9:51 SENA Fay RN, Ericka Chang Bilatateral L5- 20% relief Radiofrequency ablation of medial branch of lumbar nerve using fluoroscopic guidance (0346110621) on 01/25/2020 at 69 Years. Comments: 02/23/2020 11:08 JULISA - Tristan Pad Assembler., Charline B/L S1-S3 RFA 35% relief Injection of sac (more content not included)... Normal [facility] Comment on above: Result Comment: Elec tronically Signed By: Prudencio Payan DO\.br\Date and Time Signed: 05/21/23 13:13 EST In office Testingon 05-21-19 In office Testing [id number]# 1.00TIFF Normal [facility] Legal Correspondence Officeo n 05-21-2023 Legal Correspondence Office [id number]# 1.00TIFF [facility] Office/Clinic Note-Nurseon 0 05-21-2023 Office/Clinic Note-Nurse [id number]. [id number]# 1.00TIFF [facility] Office/Clinic Note-Physician on 05-21-2023 Office/Clinic Note-Physician [id number]# 1.00TIFF Normal [facility] Orders Officeon 05-21-2023 Orders Office [id number]# 1.00TIFF Normal [facility] STRIPPER [place]ER Drug Screen-LCon 024 Test Name Invalid Interpretation Code [facility] Comment on above: Performed By: #### 1 [id number] #### [facility] [address] [place] [address] Patient Correspondenceon Patient Correspondence [id number]# 1.00TIFF Normal [facility] Patient Correspondence [id number]# 1.00TIFF Normal [facility] Patient Correspondence [id number]# 1.00TIFF Normal [facility] Patient Correspondence [id number]# 1.00TIFF Normal [facility] Patient History Officeon Patient History Office [id number]# 1.00TIFF Normal [facility] Reference Laboratory Testing Ordered By: Sierra Hawley on 05-21-2023 Test Name [id number] Invalid Interpretation Code [facility] SendOutsSS RAD - Ultrasound Reporton RAD - Ultrasound Report [id number]#1 .00TIFF Normal [facility] Lab Reportson 04-29-2023 Lab Reports [id number]#1 .00TIFF Normal [facility] Consultation Noteon 04-14-20 Consultation Note [id number]#1 .00TIFF Normal [facility] 36on 04-08-2023 36 Please let her know [...] as planned. Thanks, Ericka Normal [facility] Telephoneon 04-08-2023 Telephone [id number] Yasmeen Linder richard Lopez 1950 F Date Provider Department Center 04/08/2023 JULI SAUNDERS Family History Problem Relation Age of Onset Heart failure Mother Family Status - Relation Status Age at Mother Normal [facility] Office Visiton 03-18-2023 Follow-up visit [id number] NiyahMalcomantonio richard Lopez 1950 F Date Provider Department Center 03/18/2023 JULI SAUNDERS Family History Problem Relation Age of Onset Heart failure Mother Family Status - Relation Status Age at Mother Level of Service:56058 [place] OFFICE/OUTPATIENT ESTABLISHED MOD MDM 30-39 MIN Reason for Visit and Comments: Coronary Artery Disease [187] Hypertension [542283] Hyperlipidemia [182] Shortness of Breath [147617] Normal [facility] Consent for Treatmenton Consent for Treatment [id number] 100 [id number]# 1.00TIFF [facility] Consultation Noteon 02-13-20 Consultation Note Patient: DIANN [...] qAM Klor-Con 10 1 tab, Oral, BID [place] 325 mg-5 mg oral tablet 1 tab(s), [...] Histories Past Medical History: Active Thyroid cancer (191907174) Resolved Arthritis (5686968): Resolved. Anxiety (61882223): Resolved. Trigeminal neuralgia of left side of face (37310912): Resolved. Osteopenia (478625527): Resolved. Hypotension (82557490): Resolved. Thyroid cancer (6312858310): Resolved. Carpal tunnel (206382798): Resolved. Liver disease (384575850): Resolved. Microscopic hematuria (699756370): Resolved. Family History: Hypertension Mother Primary malignant neoplasm of female genital organ Mother Heart failure Mother Arthritis Mother Hyperlipidemia Mother Procedure history: Epidural injection of lumbar spine using fluoroscopic guidance (7244966970) on 01/21/2023 at 72 Years. Comments: 02/12/2023 12:36 Ericka Duke RN L5-S1 30% relief Epidural injection of lumbar spine using fluoroscopic guidance (6511630861) on 04/30/2022 at 72 Years. Comments: 06/02/2022 12:54 Denisse Jovel RN L5/S1-50% relief ESWL - Extracorporeal shockwave lithotripsy for renal calculus (439530239) on 11/07/2021 at 71 Years. ALINA L5/S1 (2634359430) on 10/23/2021 at 71 Years. Comments: 11/21/2021 15:36 Katelynn Meng RN L5/S1 60% relief Cystoscope (84087204) on 04/29/2021 at 71 Years. Bilateral L3-L5 RFA (8554546823) on 04/10/2021 at 71 Years. Comments: 05/31/2021 12:43 Katelynn Moscoso RN L3-L5 20% relief Injection of nerve root of lumbar spine using fluoroscopic guidance (7094740264) on 05/16/2020 at 70 Years. Comments: 06/07/2020 9:51 SENA Fay RN, Ericka Chang Bilatateral L5- 20% relief Radiofrequency ablation of medial branch of lumbar nerve using fluoroscopic guidance (3774693210) on 01/25/2020 at 69 Years. Comments: 02/23/2020 11:08 JULISA Hudson Pad Assembler., Charline B/L S1-S3 RFA 35% relief Injection of sacroiliac joint using fluoroscopic guidance (5057353348) on 11/30/2019 at 69 Years. Comments: 12/29/2019 11:39 JULISA Hudson Certifie (more content not included)... [facility] Comment on above: Result Comment: Elec tronically Signed By: Prudencio Payan DO\.br\Date and Time Signed: 02/12/23 13:08 EDT Office/Clinic Note-Physician on 02-12-2023 Office/Clinic Note-Physician [id number]#1 .00TIFF [facility] Patient Correspondenceon Patient Correspondence [id number]#1 .00TIFF [facility] Patient Correspondence [id number]#1 .00TIFF [facility] Patient History Officeon Patient History Office [id number]#1 .00TIFF [facility] Consent for Procedure/Surger yon 01-21-2023 Consent for Procedure/Surgery [id number]#1 .00CD:127 [facility] Consent for Treatmenton 01-09 Consent for Treatment [id number]# 1.00CD:127 [facility] Discharge Instructionson Discharge Instructions [id number]#1 .00CD:127 Normal [facility] IntraOperative Documentson 0 01-21-2023 IntraOperative Documents [id number]#1 .00CD:127 Normal [facility] Main OR Intraoperative Recor don 01-21-2023 Main OR Intraoperative Record IntraOp Document Type FTPM Summary Primary Physician: Prudencio Payan DO Finalized Date/Time: 01/21/23 10:51:31 Pt. Name: NIYAH DIANNDAVID Lopez D.O.B./Sex: 1950 Female Med Rec #: [id number] Physician: Prudencio Payan DO Financial #: [id number] Pt. Type: O Room/Bed: / Admit/Disch: 01/21/23 [...] Antoinette Carreon Role Performed Surgeon - Primary Safety Officer - Primary Scrub - Primary Time In [...] Javier Mallory Role Performed Scrub - Relief Newspaper Photojournalist Time In 01/21/23 10:43:00 01/21/23 10:43:00 Time [...] STEROID Modifiers . INJECTION Surgeon Description L5-S1 AILNA Primary Procedure Yes Primary Surgeon Prudencio Payan [...] and tissue Entry 1 Skin Integrity Intact, [place], Warm, and Skin Abnormality No Dry Outcomes [...] Device Rodney (more content not included)... Normal [facility] Main OR Preoperative Recordo n 01-21-2023 Main OR Preoperative Record Holding Area Document Type FTPM Summary Primary Physician: Prudencio Payan DO Finalized Date/Time: 01/21/23 09:56:09 Pt. Name: DIANN LINDER/Sex: 1950 Female Med Rec #: [id number] Physician: Prudencio Payan DO Financial #: [id number] Pt. Type: O Room/Bed: / Admit/Disch: 01/21/23 [...] Signed By: Asmita Camacho RN 01/21/23 09:56 [facility] Operative Reporton 3 Operative Report L5/S1 interlaminar [...] the epidural space was confirmed using the cihl-yz-lvfoijffcu technique and 2 cc of air. Injection [...] agrees to continue currently prescribed/recommende d therapies. [facility] Comment on above: Result Comment: Elec tronically Signed By: Prudencio Payan DO.br\Date and Time Signed: 01/21/23 10:52 EDT Patient Correspondenceon Patient Correspondence [id number]# 1.00CD:127 Normal [facility] Office/Clinic Note-Physician on 01-05-2023 Office/Clinic Note-Physician [id number]# 1.00CD:127 Normal [facility] Laboratory Outside Office Co pyon 01-02-2023 Laboratory Outside Office Copy [id number]# 1.00CD:127 [facility] Consent for Treatmenton 12-09 Consent for Treatment [id number]#1 .00CD:127 [facility] Consent for Treatment [id number]#1 .00CD:127 [facility] Consultation Noteon 12-27-19 Consultation Note Patient: DIANN [...] gave her 50% relief. She intermittently uses [place] 5/325 twice daily as needed pain. She [...] amoxicillin Hives Current medications: (Selected) Prescriptions Prescribed [place] 325 mg-5 mg oral tablet: 1 tab(s), Oral, BID as needed for pain for 30 day(s), 60 tab(s), Refill(s) 0, [facility], 158, cm, 12/26/22 14:12:00 EDT, Height/Length Dosing, 104.5, kg, 12/26/22 14:12:00 EDT, Weight Dosing gabapentin 300 mg Cap: See Instructions, one cap in AM, 2 caps at bedtime., # 270 cap(s), Refills(s) 0, Pharmacy: [facility], 158, cm, 09/26/22 13:04:00 EDT, Height/Length Dosing, 106.6, kg, 09/16/22 13:01:00 EDT, Weight Dosing sertraline 50 mg Tab: 50 mg, Oral, Daily, X 90 day(s), # 90 tab(s), Refills(s) 3, Pharmacy: [facility], 158, cm, 07/04/22 [...] Problems Chronic back pain / SNOMED CT 365472502 / Confirmed Osteoarthritis / SNOMED CT 0559039450 / Confirmed Hematuria / SNOMED CT 246436216 / Confirmed Anemia / SNOMED CT 394053154 / Confirmed HTN (hypertension) / SNOMED CT 2576230080 / Confirmed Glaucoma / SNOMED CT 17651134 / Confirmed Hypothyroid / SNOMED CT 92861338 / Confirmed C. difficile diarrhea / SNOMED CT 0936147030 / Confirmed Anemia / SNOMED CT 091094728 / Confirmed Arthritis / SNOMED CT 0649155 / Confirmed Thyroid cancer / SNOMED CT 896098159 / Confirmed Heart disease / SNOMED CT 64050596 / Confirmed Hypertension / SNOMED CT 3210086237 / Confirmed Hyperlipidemia / SNOMED CT 79376649 / Confirmed Sleep apnea / SNOMED CT 103412188 / Confirmed Long-term current use of opiate analgesic drug / SNOMED CT 949610844442882 / Confirmed Added secondary to current Opioid Treatment Agreement Kidney stones / SNOMED CT 102862324 / Confirmed Renal mass / SNOMED CT 538686453 / Confirmed Abnormal kidney function / SNOMED CT 86039459 / Confirme (more content not included)... Normal [facility] Comment on above: Result Comment: Elec tronically Signed By: Indiana Walsh PA-C\.br\Date and Time Signed: 12/26/22 14:24 EDT\.br\Electronically Co-Signed By: Chad Salas MD\.br\Date and Time Co-Signed: 12/27/22 17:09 EDT In office Testingon 12-27-19 In office Testing [id number]#1 .00CD:127 Normal [facility] Office/Clinic Note-Nurseon 0 12-26-2022 Office/Clinic Note-Nurse [id number]#1 .00CD:127 Normal [facility] Office/Clinic Note-Physician on 12-26-2022 Office/Clinic Note-Physician [id number]#1 .00CD:127 Normal [facility] Orders Officeon 12-26-2022 Orders Office [id number]#1 .00CD:127 Normal [facility] STR[facility] Drug Screen-LCon 023 Test Name [id number] Invalid Interpretation Code [facility] Comment on above: Performed By: #### 1 [id number] ####[facility] [address] [place], [place] [address] Patient Correspondenceon Patient Correspondence [id number]#1 .00CD:127 Normal [facility] Patient Correspondence [id number]#1 .00CD:127 Normal [facility] Patient History Officeon Patient History Office [id number]#1 .00CD:127 Normal [facility] Reference Laboratory Testing Ordered By: Sierra Hawley on 12-26-2022 Test Name RANDAL Invalid Interpretation Code [facility] SendOutsSS Consent for Treatmenton 09-08 Consent for Treatment [id number]# 1.00CD:127 Normal [facility] Consultation Noteon 09-27-19 Consultation Note Patient: DIANN [...] gave her 50% relief. She intermittently uses [place] 5/325 twice daily as needed pain. She [...] Spasm, # 20 tab(s), Refills(s) 0, Pharmacy: [facility], 158, cm, 10/31/21 16:20:00 EDT, Height/Length Dosing, 97.9, kg, 10/31/21 16:20:00 EDT, Weight Dosing [place] 325 mg-5 mg oral tablet: 1 tab(s), Oral, BID as needed for pain, 60 tab(s), Refill(s) 0, [facility], 158, cm, 09/26/22 13:04:00 EDT, Height/Length Dosing, 106.6, kg, 09/16/22 13:01:00 EDT, Weight Dosing gabapentin 300 mg Cap: See Instructions, 1 cap(s) Oral Qam 2 caps QHS, # 270 cap(s), Refills(s) 0, Pharmacy: [facility], 158, cm, 05/31/21 12:51:00 EST, Height/Length Dosing, 95.2, kg, 05/31/21 12:51:00 EST, Weight Dosing gabapentin 300 mg Cap: See Instructions, one cap in AM, 2 caps at bedtime., # 270 cap(s), Refills(s) 0, Pharmacy: [facility], 158, cm, 07/04/22 14:50:00 EST, Height/Length Dosing, 99, kg, 07/04/22 14:50:00 EST, Weight Dosing sertraline 50 mg Tab: 50 mg, Oral, Daily, X 90 day(s), # 90 tab(s), Refills(s) 3, Pharmacy: [facility], 158, cm, 07/04/22 14:50:00 EST, [...] Problems Chronic back pain / SNOMED CT 861177383 / Confirmed Osteoarthritis / SNOMED CT 2462455724 / Confirmed Hematuria / SNOMED CT 334342264 / Confirmed Anemia / SNOMED CT 301555887 / Confirmed HTN (hypertension) / SNOMED CT 9658505943 / Confirmed Glaucoma / SNOMED CT 33328864 / Confirmed Hypothyroid / SNOMED CT 47595600 / Confirmed C. difficile diarrhea / SNOMED CT 2190824655 / Confirmed Anemia / SNOMED CT 208950138 / Confirmed Arthritis / SNOMED CT 3041717 / Confirmed Thyroid cancer / SNOMED CT 498151226 / Confirmed Heart disease / SNOMED CT 77102716 / Confirmed Hypertension / SNOMED CT 5790654832 / Confirmed Hyperlipidemia / SNOMED CT 41408070 / Confirmed Sle (more content not included)... [facility] Comment on above: Result Comment: Elec tronically Signed By: Indiana Walsh PA-C\.br\Date and Time Signed: 09/26/22 13:15 EDT\.br\Electronically Co-Signed By: Chad Salas MD\.br\Date and Time Co-Signed: 09/29/22 22:18 EDT Office/Clinic Note-Physician on 09-26-2022 Office/Clinic Note-Physician [id number]#1 .00CD:127 [facility] Patient Correspondenceon Patient Correspondence [id number]#1 .00CD:127 [facility] Patient Correspondence [id number]#1 .00CD:127 [facility] Patient History Officeon Patient History Office [id number]#1 .00CD:127 [facility] Ambulatory Visit Summaryon 0 09-16-2022 Ambulatory Visit Summary NIYAH DIANN D :1950 Visit Date:09/16/2022 Ambulatory Visit Instructions Your Diagnosis Recurrent falls while walking Fatigue Pain Osteoarthritis BMI 40.0-44.9, adult Non-smoker Your Care Team Attending Physician - Radha Guzman Primary Care Physician - WENDY SOMMERS, SANAZ [place] This Is Your Medications List acetaminophen-hydroco done ([place] 325 mg-5 mg oral tablet) acetaminophen-hydroco done ([place] 325 mg-5 mg oral tablet) acetaminophen-hydroco done ([place] 325 mg-5 mg oral tablet) alendronate (Fosamax [...] Much When Why Instructions Unchanged acetaminophen-hydroco done ([place] 325 mg-5 mg oral tablet) 1 Tablets By Mouth 2 times a day as needed for as needed for pain Unchanged acetaminophen-hydroco done ([place] 325 mg-5 mg oral tablet) 1 Tablets By Mouth 2 times a day as needed for as needed for pain Unchanged acetaminophen-hydroco done ([place] 325 mg-5 mg oral tablet) 1 Tablets [...] D ext (more content not included)... Normal [facility] Family Medicine Office/Clini c Noteon 09-16-2022 Family Medicine Office/Clinic Note Chief Complaint est care, er f/u HPI Staff Patient is here for an ER follow up. Hospital:[facility] Admission date:09/12/22 Symptoms the patient presented [...] of facet (more content not included)... Normal [facility] Comment on above: Result Comment: Elec tronically Signed By: Radha Guzman\.br\Date and Time Signed: 09/16/22 13:30 EDT ED Note-Physicianon 09-16-19 ED Note-Physician [id number]#1 .00CD:127 Normal [facility] BNPon 09-12-2022 Natriuretic peptide B (Bld) [Mass/Vol] 136.0 pg/mL Normal <=900.0 [facility] Comment on above: Performed By: #### C VDAGS #### [facility] [address] [place] [address] Dr. Sherry Sanches CBC AUTO DIFFon 09-12-2022 BASO # 0.0 103/ul Normal 0.0-0.1 [facility] Comment on above: Performed By: #### C BC #### [facility] [address] [address] [address] Sherry Sanches Basophils/100 WBC (Bld) 0.6 % Normal 0.2-2.0 [facility] Comment on above: Performed By: #### C BC #### [facility] [address] [address] [address] Sherry Sanches EO # 0.1 103/ul Normal 0.0-0.7 [facility] Comment on above: Performed By: #### C BC #### [facility] [address] [address] [address] Sherry Sanches Eosinophils/100 WBC (Bld) 2.2 % Normal 0.9-7.0 [facility] Comment on above: Performed By: #### C BC #### [facility] [address] [address] [address] Sherry Sanches Erythrocyte distribution width (RBC) [Ratio] 12.9 % Normal 11.0-15.0 [facility] Comment on above: Performed By: #### C BC #### [facility] [address] [address] [address] Sherry Sanches Hematocrit (Bld) [Volume fraction] 35.9 % Critically low 36.0-48.0 [facility] Comment on above: Performed By: #### C BC #### [facility] [address] [address] [address] Sherry Sanches Hemoglobin (Bld) [Mass/Vol] 11.8 g/dL Critically low 12.0-16.0 [facility] Comment on above: Performed By: #### C BC #### [facility] [address] [address] [address] Sherry Sanches IG # 0.04 10e3/ul Critically high 0.00-0.03 [facility] Comment on above: Performed By: #### C BC #### [facility] [address] [address] [address] Sherry Sanches IG % 0.6 % Critically high 0.0-0.5 [facility] Comment on above: Performed By: #### C BC #### [facility] [address] [address] [address] Sherry Sanches LYMPH # 0.9 103/ul Critically low 1.2-3.8 [facility] Comment on above: Performed By: #### C BC #### [facility] [address] [place] [address] Dr. Sherry Sanches Lymphocytes/100 WBC (Bld) 13.5 % Critically low 20.5-60.0 [facility] Comment on above: Performed By: #### C BC #### [facility] [address] [place] [address] Dr. Sherry Sanches MANUAL DIFF REQ NO Normal [facility] Comment on above: Performed By: #### C BC #### [facility] [address] [place] [address] Dr. Sherry Sanches MCH (RBC) [Entitic mass] 31.6 pg Normal 26.7-34.0 [facility] Comment on above: Performed By: #### C BC #### [facility] [address] [place] [address] Dr. Sherry Sanches MCHC (RBC) [Mass/Vol] 32.9 g/dL Normal 29.9-35.2 [facility] Comment on above: Performed By: #### C BC #### [facility] [address] [place] [address] Dr. Sherry Sanches MCV (RBC) [Entitic vol] 96.2 fL Normal 81.0-99.0 [facility] Comment on above: Performed By: #### C BC #### [facility] [address] [place] [address] Dr. Sherry Sanches MONO # 0.6 103/ul Normal 0.3-0.8 [facility] Comment on above: Performed By: #### C BC #### [facility] [address] [place] [address] Dr. Sherry Sanches Monocytes/100 WBC (Bld) 9.9 % Normal 1.7-12.0 [facility] Comment on above: Performed By: #### C BC #### [facility] [address] [address] [address] Sherry Sanches NEUT # 4.6 103/ul Normal 1.4-6.5 [facility] Comment on above: Performed By: #### C BC #### [facility] [address] [address] [address] Sherry Sanches Neutrophils/100 WBC (Bld) 73.2 % Normal 43.0-75.0 [facility] Comment on above: Performed By: #### C BC #### [facility] [address] [address] [address] Sherry Sanches Platelet mean volume (Bld) [Entitic vol] 9.1 fL Critically low 9.5-13.5 [facility] Comment on above: Performed By: #### C BC #### [facility] [address] [place] [address] Dr. Sherry Sanches PLT 220 103/ul Normal 150-450 [facility] Comment on above: Performed By: #### C BC #### [facility] [address] [place] [address] Dr. Sherry Sanches RBC 3.73 106/ul Critically low 4.20-5.40 [facility] Comment on above: Performed By: #### C BC #### [facility] [address] [place] [address] Dr. Sherry Sanches WBC 6.3 103/ul Normal 4.0-11.0 [facility] Comment on above: Performed By: #### C BC #### [facility] [address] [place] [address] Dr. Sherry Sanches CPKon 09-12-2022 CK [Catalytic activity/Vol] 84 U/L Normal 26-192 [facility] Comment on above: Performed By: #### C BC #### [facility] [address] [place] [address] HEAD WO CONon [...] MAURICE DAILY Date: 2022-09-12 16:26 Normal [facility] Covid-19 PCR ([facility])on SARS-CoV-2 (COVID-19) RNA GABE+probe Ql (Unsp spec) Not detected Normal NOT DETECTED [facility] Comment on above: Result Comment: This test is not yet approved or cleared by the [place] FDA. When there are no FDA-approved or cleared tests available, and other criteria are met, FDA can make tests available under an emergency access mechanism called an Emergency Use Authorization (EUA). The EUA for this test is supported by the [employer] Director of Health and Human Service's (HHS's) declaration [...] SARS-CoV-2. Performed By: #### C VDAGS #### [facility] [address] [place] [address] Dr. Sherry PACHECO URINE PROFILEon 3 Bilirubin Ql (U) Negative Normal NEGATIVE [facility] Comment on above: Performed By: #### Donaldo RAMIREZ UMICRO #### [facility] [address] [place] [address] Dr. Sherry Sanches Clarity (U) CLEAR Normal CLEAR [facility] Comment on above: Performed By: #### Donaldo RAMIREZ UMICRO #### [facility] [address] [place] [address] Dr. Sherry Sanches Color (U) LT. YELLOW Normal YELLOW [facility] Comment on above: Performed By: #### Donaldo RAMIREZ UMICRO #### [facility] [address] [place] [address] Dr. Sherry ALVARESAHJohn A micrscopic examination will be performed if indicated. Normal [facility] Comment on above: Performed By: #### RADHA FOWLERICRO #### [facility] [address] [place] [address] Dr. Sherry Sanches Glucose Ql (U) Negative Normal NEGATIVE [facility] Comment on above: Performed By: #### RADHA FOWLERICRO #### [facility] [address] [place] [address] Dr. Sherry Sanches Hemoglobin Ql (U) MODERATE Abnormal NEGATIVE [facility] Comment on above: Performed By: #### Donaldo RAMIREZ UMICRO #### [facility] [address] [place] [address] Dr. Sherry Sanches Ketones Ql (U) Negative Normal NEGATIVE [facility] Comment on above: Performed By: #### Donaldo RAMIREZ UMICRO #### [facility] [address] [place] [address] Dr. Sherry Sanches LEUKOCYTES Negative Normal NEGATIVE [facility] Comment on above: Performed By: #### Donaldo RAMIREZ UMICRO #### [facility] [address] [place] [address] Dr. Sherry Sanches Nitrite Ql (U) Negative Normal NEGATIVE [facility] Comment on above: Performed By: #### Donaldo RAMIREZ UMICRO #### [facility] [address] [place] [address] Dr. Sherry Sanches pH (U) 5.0 [pH] Normal 5-9 [facility] Comment on above: Performed By: #### Donaldo RAMIREZ UMICRO #### [facility] [address] [place] [address] Dr. Sherry Sanches SPEC GRAVITY 1.020 Normal 1.005-<=1.02 5 [facility] Comment on above: Performed By: #### Donaldo RAMIREZ UMICRO #### [facility] [address] [place] [address] Dr. Sherry Sanches UA PROTEIN Negative Normal NEGATIVE/ TRACE [facility] Comment on above: Performed By: #### Donaldo RAMIREZ ICRO #### [facility] [address] [place] [address] Dr. Sherry Sanches UR MICRO IND INDICATED Normal [facility] Comment on above: Performed By: #### Donaldo RAMIREZ UMICRO #### [facility] [address] [place] [address] Dr. Sherry Sanches Urobilinogen Qn (U) 0.2 {Ellen'U}/dL Normal 0.2 - 1. 0 [facility] Comment on above: Performed By: #### Donaldo RAMIREZ UMICRO #### [facility] [address] [place] [address] Dr. Sherry Sanches LIPASEon 09-12-2022 Lipase [Catalytic activity/Vol] 125.0 U/L Normal 73.0-393.0 [facility] Comment on above: Performed By: #### C BC #### [facility] [address] [place] [address] Dr. Sherry Sanches PROF 14(COMP METB)on 023 Albumin [Mass/Vol] 3.7 g/dL Normal 3.4-5.0 [facility] Comment on above: Performed By: #### C BC #### [facility] [address] [place] [address] Dr. Sherry Sanches Albumin/Globulin [Mass ratio] 1.1 {ratio} Normal [facility] Comment on above: Performed By: #### C BC #### [facility] [address] [place] [address] Dr. Sherry Sanches ALP [Catalytic activity/Vol] 104 U/L Normal 46-116 [facility] Comment on above: Performed By: #### C BC #### [facility] [address] [place] [address] Dr. Sherry Sanches ALT [Catalytic activity/Vol] 19 U/L Normal 14-59 [facility] Comment on above: Performed By: #### C BC #### [facility] [address] [place] [address] Dr. Sherry Sanches Anion gap [Moles/Vol] 11.1 mmol/L Normal [facility] Comment on above: Performed By: #### C BC #### [facility] [address] [place] [address] Dr. Sherry Sanches AST [Catalytic activity/Vol] 15 U/L Normal 15-37 [facility] Comment on above: Performed By: #### C BC #### [facility] [address] [place] [address] Dr. Sherry Sanches Bilirubin [Mass/Vol] 0.5 mg/dL Normal 0.2-1.0 [facility] Comment on above: Performed By: #### C BC #### [facility] [address] [place] [address] Dr. Sherry Sanches Calcium [Mass/Vol] 8.9 mg/dL Normal 8.5-10.1 [facility] Comment on above: Performed By: #### C BC #### [facility] [address] [place] [address] Dr. Sherry Sanches Chloride [Moles/Vol] 104 mmol/L Normal 98-107 [facility] Comment on above: Performed By: #### C BC #### [facility] [address] [address] [address] Sherry Sanches CO2 [Moles/Vol] 29.7 mmol/L Normal 21.0-32.0 [facility] Comment on above: Performed By: #### C BC #### [facility] [address] [address] [address] hSerry Sanches Creatinine [Mass/Vol] 1.29 mg/dL Critically high 0.55-1.02 [facility] Comment on above: Performed By: #### C BC #### [facility] [address] [address] [address] Sherry Sanches EGFR-AF YEMENI 49 mL/min/1.73m2 Critically low >=60 [facility] Comment on above: Performed By: #### C BC #### [facility] [address] [address] [address] Sherry Sanches EGFR-NON AF YEMENI 41 mL/min/1.73m2 Critically low >=60 [facility] Comment on above: Performed By: #### C BC #### [facility] [address] [address] [address] Sherry Sanches Globulin (S) [Mass/Vol] 3.4 g/dL Normal [facility] Comment on above: Performed By: #### C BC #### [facility] [address] [address] [address] Sherry Sanches Glucose [Mass/Vol] 126 mg/dL Critically high 74-106 [facility] Comment on above: Performed By: #### C BC #### [facility] [address] [address] [address] Sherry Sanches Potassium [Moles/Vol] 3.8 mmol/L Normal 3.5-5.1 [facility] Comment on above: Performed By: #### C BC #### [facility] [address] [address] [address] Sherry Sanches Protein [Mass/Vol] 7.1 g/dL Normal 6.4-8.2 [facility] Comment on above: Performed By: #### C BC #### [facility] [address] [address] [address] Sherry Sanches Sodium [Moles/Vol] 141 mmol/L Normal 136-145 [facility] Comment on above: Performed By: #### C BC #### [facility] [address] [place] [address] Dr. Sherry Sanches Urea nitrogen [Mass/Vol] 17.0 mg/dL Normal 7.0-18.0 [facility] Comment on above: Performed By: #### C BC #### [facility] [address] [place] [address] Dr. Sherry Sanches Urea nitrogen/Creatinine [Mass ratio] 13.2 mg/mg Normal [facility] Comment on above: Performed By: #### C BC #### [facility] [address] [place] [address] Dr. Sherry Sanches SYMPTOMATIC COVID-19 ANTIGEN on 09-12-2022 EUA Statement SEE BELOW Normal [facility] Comment on above: Result Comment: [...] sooner. Performed By: #### C VDAGS #### [facility] [address] [place] [address] Dr. Sherry Sanches SARS-CoV-2 (COVID-19) RNA GABE+probe Ql (Unsp spec) Negative Normal NEGATIVE [facility] Comment on above: Performed By: #### C VDAGS #### [facility] [address] [place] [address] Dr. Sherry Sanches TROPONIN, HIGH SENSITIVITYon 09-12-2022 HSTROP 5.9 pg/mL Normal 4.0-51.3 [facility] Comment on above: Result Comment: CUT- OFF POINTS HAVE BEEN ESTABLISHED BASED ON THE FOURTH UNIVERSAL DEFINITIONS OF MYOCARDIAL INFARCTION. THE UPPER REFERENCE LIMIT (URL) OF TROPONIN, DEFINED THE 99TH PERCENTILE OF cTnI DISTRIBUTION IN A REFERENCE POPULATION, HAS BEEN CONFIRMED THE DECISION THRESHOLD FOR ME DIAGNOSIS. Performed By: #### H STROPN #### [facility] [address] [address] [address] Sherry Sanches HSTROP 5.0 pg/mL Normal 4.0-51.3 [facility] Comment on above: Result Comment: CUT- OFF POINTS HAVE BEEN ESTABLISHED BASED ON THE FOURTH UNIVERSAL DEFINITIONS OF MYOCARDIAL INFARCTION. THE UPPER REFERENCE LIMIT (URL) OF TROPONIN, DEFINED THE 99TH PERCENTILE OF cTnI DISTRIBUTION IN A REFERENCE POPULATION, HAS BEEN CONFIRMED THE DECISION THRESHOLD FOR ME DIAGNOSIS. Performed By: #### C VDAGS #### [facility] [address] [address] [address] Sherry Sanches URINE MICROSCOPIC ONLYon BACTERIA TRACE Abnormal NONE SEEN [facility] Comment on above: Performed By: #### MARY JO FOWLERRO ####[facility] [id number] [address]DrBita Sanches Bacteria identified Cx Nom (U) NOT INDICATED Normal [facility] Comment on above: Performed By: #### Donaldo RAMIREZ UMICRO ####[facility] [id number] [address]DrBita Sanches CAST NONE SEEN Normal NONE SEEN [facility] Comment on above: Performed By: #### Donaldo RAMIREZ UMICRO ####[facility] [id number] [address]DrBita Sanches Crystals LM Nom (Urine sed) NONE SEEN Normal NONE SEEN [facility] Comment on above: Performed By: #### Donaldo RAMIREZ UMICRO ####[facility] [id number] [address]DrBita Sanches Epithelial cells LM Ql (Urine sed) FEW Abnormal NONE SEEN /RARE [facility] Comment on above: Performed By: #### E RUR, UMICRO ####[facility] [id number] [id number] Sherry Sanches MUCOUS TRACE Abnormal NONE SEEN [facility] Comment on above: Performed By: #### E RUR, UMICRO ####[facility] [address] [place], [place] [address]Fd. Sherry Sanches RBC 10-20 Abnormal 0-2 [facility] Comment on above: Performed By: #### E RUR, UMICRO ####[facility] [address] [place], [place] [address]Rg. Sherry Sanches WBC 0-2 Abnormal NONE SEEN [facility] Comment on above: Performed By: #### E RUR, UMICRO ####[facility] [address] [place], [place] [address]Yh. 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 Normal [facility] Progress Noteson 08-05-2022 Producer Authentication Interface Message Text Patient was identified by name and date of . Charline Velazquez RN Patient at risk for falls:Yes Falls Risk protocol implemented: Yes Ambulates with cane Charline Velazquez RN Normal [facility] Outside Records Officeon Outside Records Office [id number]# 1.00CD:127 Normal [facility] Coding Summary.on 07-31-2022 Coding Summary. CD:[id number] W w+PGhlYWQ+MS0NBBXmQ79 jjSBjpN9vD9YGDRiBSmtz CUSLFBiJMyOcvqQmPQ2qc XNjZXJu IC8+JF8xMEBwOxbspLNuh 5F5zIW3B18kwo1hLFuvvB S5ELBdOvRsgppib3cjbIl 6IDcuNmluOyBt GSLccT34DEU0zE59Sv80d CHuxKQul2zulVo7MvSaQI VxGMX5vDnfWXvik2KjTPX zO90dyMQfi2F0 WLLwaDkzeFOzAmRsmXO0a B2kMYxpwbatu6kpwgggQs c1ql08qMKyv3T0cEU3L7S oskX1PFGfmHXk OkwwbLGTrR4frhvdf7sts dsqGaAxYOEgEPe0MJv6ZK EesAftNiOrIO51BPX4ZQF geaFyE6OdVQHr tRbgYoV0q5X4Re4EU7PAZ xcsG5CHFZNQOStcrVR+PC 91of39G6YsYrdsEbf9MNQ uIDS4zCS4tH2m ENAuQYdtw6X0dTH9O2Fto eIvii1jv9gaEFYcNEkpK1 3hoWJso8F0RCJiySH4NCH zrFcpOfPwjI05 Oyc+JABbiIlvu2DjZocru 4qfc1nsuCm8LvvjCRRbch QrfXrbXEN9h9CyZp4mGXJ wbTV4tWB7xA4k NlOaPcC6RSqdD431QeTwt KUkRxceY44aS9ZqsOK+PH FiPxm4WCYeaXgzWE0pR7Y hZGRpbmctbGVm sAhmYA0jRNFqggdcKBXbv Y2cIHVdQ6r2LqEwOhN9LO akD3TrDVZmyniaVk92hY2 vIvGuBeM1IDae E3HxcsW1RGHseBLhSBksD SM4K54gf6Q7HIJdEDTzSR T8cVW5lX6zrTflrnmupTD mdDsgdmVydGlj UTtvBPlfR143XSAgsYvpD kNvZGluZyBEYXRlOiAgMD MvMjMvMjAyMzwvdGQ+PHR fKSK4qIgyTJYa lBBeXDmqQf6zhKxqoKxyU H0fHIXiexiaFRJvvN8gQG SquSJllGpoQX6gBNZegrr vi657MqOoQBU9 QBJpzSPvI2SbhI2yQpLkC PRgKVVdH9CyaJGzSHnoV4 57KZtkQlI0CXPfaaSpW4H sLWFsaWduOiB0 s0Q0Gz1Jq0FuxvbjP9Lsr LBmLjEaSkkzSCd9S5FtBg wvdHI+PD93GFOsXW14TGh 7HSD4sMbyQTbf GVIpB3IddN8hOeKgDSWyT GRkOyc+PHRhYmxlIHdpZH RoPScxMDAlJyBzdHlsZT0 vUl8qPYAnTOSo zHpbyUSbLxBkw2jyPIVlN XvsYZ0wdTrvI9DbkSF5YO Rkg0m2Uy73E76fD2UpsHH +VXKclEI2xDO0 uW3bLzEqHtL1PUrsD995I pVwzBExSnuxq0ohk9xzcR x1FaS6LWGeslKzmQjlURT 9h6YaFc43C21u IHdpZHRoPSIxNSUiIHZhb Odaik4nsI9hRv9+PGNvbC K9oPR8xK1iGxCcBuU0QOh bI403KiYinFEw Swebn2uio0bmwHp9PbUkB LTgybThmXitAKM6f4QfXj 19T4YdiAojh1WjEbv8tk0 6dIUvb2Z9tXJ1 A4JpDYSurfbnvGEepTjhC K5iCWFnlfvlNTAgeE3gDN HpQ6g6PwKkUuT6EFplQ3D eahM4EOEqfQQf YYJefVTJgT2roacds8buf wfcYzKkEARqNIb4BSw9HT NyhPmpFgNrIAO0HxS4FEQ 9iSBxpO2goCvg daklfY8iIoy+BGE1kSHmn IXEWZ1fGntutRY+PHRkIH Z4hWblXPaaPNCgvD7yURD xM9s2JeLzOeZ7 ZSraS1FjjdC3HKQcuXUfV YPdeLHOvL6zorfcx0efaq xhVyNrWHDwLGa6DPb4UIA saWduOiBsZWZ0 DvN9LKE4kLXfmG8czDvpa pydqJ1aIlp+QmlydGggRG Y6NLo0G5ZrQtk2PTSlvTk sOO3nzQLgPGmb Ru1tkHeeaDixPX5lGPYqu myxp112CmJuw9tfAKHjaY QkLXciDHE1X82bt2K7UMP kJQYvWYI4uFK8 bJ3gjPfeyxrpzXQhtVkmw jEahMnjDZeeQQulP723ZE QokNolObHqIGk1E0NwIlo 1XDDbmTleOE2e kYNgRVzcDz4yjAbfqGwbT O4oUBCuhpqfv083KgAol5 thURXjaDQuEUxiOUU3P26 lj2K4FXJmEAWb ZCX9gYY7dH7rkYuprjngi GVmdDsgdmVydGljYWwtYW nwL994XDQwiWsvLhIwfMa 5L9JhVwi8ONPj uHhrFN7ffRKsNDbqDt8ks TzlxXthYW9eLJRczeqet7 43NcVou1zzDXRahHHkIUf tLVA2Q07ho3I9 MDTcUBExMWC1rQQ2pT7ya GlnbjogbGVmdDsgdmVydG hvUWzdYMrrE392PEYysTl nPlBhdGllbnQg QGbsBAt8D6XdObyvmQE+P O06BWGeBA39xRJqcIJxp0 qwiSr0CcZrKXAvHGJ9pQw hKLegr9SvCANx B21aqTMmz2X6UMPgjVrhu ZMuOuVnoAO0oC6hNKtavo wew7vtakwwTuznk4ooki3 0rU33T25aQYfx ZHRoPSIzMCUiIHZhbGlnb t9hyS1zSq8+FMZabGO1qK V9sY2dPJUlPoF2BViaD25 9InRvcCIvPjxj c6xzd3tqlIc9LsZ7BDFjh mQnjVodHXA5p5BiJi19J0 9sIHdpZHRoPSIyMCUiIHZ ddXzbla8zpY6g Ii8+DFAyaIE0oWG0sK3hU uAxAzD8VGtyT243NtNdmY SeSibmX79cB7XbfRB+PHR wVfe3DLHkcJfa PO4zmREwTFnnLs1bIFS2Q aBxJyXwCOclR1OqXVKiff fxlomczXT5WANaQMVxiH2 5Ny9pjYewRNTo nINKzQ5logmse2ipafkaB xGuTRDhEQf3TBf2CKTsfV wpLjEjQBV0JgO8ZJF5gIL obC6nnSpdzldn nQ7iO6WgRPWhtrzsOt21p B5iUqQyNpV2HLwpUdv+V0 VMTFMsIFNIRVJSWSBEPC9 2OB88jTMzm6V0 bGT0G8TqXFPenmbpekkwi GB5PUEaEURczD80kCOcJN ptPy2hi5J7n229ICLtVOS piV84Es5nbCtp WXIyxFOXuD5coguyy6uel onpYxMtWTFtKAg2IKm5SO PitVhnPqGgPLX4QrB4YZR 2nFEzqG8ozNft ywfvrS2aEje+MDkvMjIvM Dz2AXuuzEF+QQUdVHC2yD qlCXmwPLWfcH8lKMAwB0c 5KvMzLxL3XIbz F9KhQUOvitblMz49oC8iM fRiQuW7WAgqQ4EjvoP0CR QrwMYbYXgqJXG4I82pi4B 3VRDfBGLoIBT9 sXS0nS2wtZwkoflqvVRsq DsgdmVydGljYWwtYWxpZ2 46IHRvcDsnPjcyIFllYXJ uZT14GO29lFLm e1E5bYV8M7SvBMGbtswks roscVL5ILHuYCDncD36rX TuQTiiPx2no2X8r653RAO aKCTkeF62Py6e cLsmELNteZTJzV3bdhnpw 5gygaotKzDwPBQoLWc5HK x9ZSGpsGvrSpQqLQI8AnB 5CQN1iDTtaI6m nGcxgchrrB7dGit+RmVtY SmyQF51CF93nDAse7W3rE V3K3JmMLKesctkwmqdyJV 5PPMxCAClpS35 gFHkVRajGm6bk7U0m311X DAoIACziF98Zp9cjYixHN TpkYAEnR8klanei5ncfdz gIzAwMDAwMDt0 NTf4JGWmrMvdLdUwBAU3O bL7WOI6tNTacQ1otRcnoo cwiA2zBhh+B5H5oGW4gMT udDwvdGQ+PC90 zu47T9KqHmtkSwo1DVKcW FP6eMD1pV6aUJBlXVbaf9 I2uPF1W8KittZobo8lg3z dZSQqOZjoZ88a dBVhh6S6ICUxgVE5KVVrn JubFqWvgO62Bhy+PGNvbG ypx1BhYbjuf4jty7ipmNp 9IjMwJSIgdmFs lZuuIGU5c0OfJm00J21zH HdpZHRoPSIzMCUiIHZhbG etjk3fwF6qBa0+PGNvbCB 9dCY0nJ5iFdUp HtN6QZzcC350VfCfvLKtA sjcz5nvc7wfjBq3XeVcBX HrcuAytNrcXDW0c5HsWn0 8Q1ZobGxtc1Am Oas3ys21vIWjt4F8xEJ9A 3BhZGRpbmctbGVmdDogMC 9sWUFdrzasCSOgqS9pHVR bP3r3ErVgOeV8 KVnpK1ZinmI2SYMmhUOwY CIirFVPxX3ylpchf3rfxo xfUzNjYREhSBa6CGq4CTP saWduOiBsZWZ0 RkK0DSQ3rOZjgP4yjBsvl enmoE3wIqf+XMd7g2ukaS JqJI8riCY6UR66OF06hPT kv2J1jJZ4B2Gx XWGiplfhzipudEU1GRPeO EPixC83Pk9ryRkgHl6eHO IdBFB9TUMqgSFmS4GfbZ0 yOiAjMDAwMDAw Z9GzkCQxGKnbR484XXbiU lP8TGJdgqGjB9YpVLJwpI bySlT1l7Z3An4ZYJ30QB0 0UQ36pYKjc0H2 kDJ2D0EcXPDnllnhopnvr CV0PWTfFRRvcJ30Pp0fcW kvVs7cILRzKYJ3YTIckRT fQ2EfhA5wCyGx BDWpOZDkG9TpfJEqGAjsD 374NIvbKxE9TALyiaOvB7 SvMZBqaBofYfK8t7M7Rc3 DYo03JC82IU51 jWVgr2W5kJE6R1EbKNMfh rqwevdsrBV2QQCdACUnhJ 96Zi0zhQvaUj2hTQBnNOO 8JORiiEImY2Dz yG4jSqXbUGTtAKMoJ4Qql NHmJPuuI474EVxvUyH6PJ ArdfYhR0YnAJFhtPokNqO 9v0O1Wn3KQGvj tni0J2ZeEuvsmQN+PC90Y SStIU72eZAneFWql1gprM w1OsDvGGReSKR5qEhpHVw pb7GeVXOwH92j mWXrb3B0 (more content not included)... Normal [facility] Physician Orderon 07-31-2022 Physician Order [id number]#1 .00CD:127 Normal [facility] Laboratory Outside Office Co pyon 07-11-2022 Laboratory Outside Office Copy [id number]# 1.00CD:127 [facility] Coding Summary.on 07-09-2022 Coding Summary. CD:[id number] G h0bWw+PGhlYWQ+SF3IDGA yV19kvRMdcQ6HI2dZTL3V PITPLXJVPC2WHW5haKQ3L ZraF0WimyRq HptebDBiKP10EYd9WXZ4z MtqMVqsiR3ovDTsH2i9Ng SaDH47lP36MBmuDCGpRhV 3LjZpbjsgbWFy B3ckKyRozUArNhv+PHRhY mxlIHdpZHRoPScxMDAlJy MxwUbuBS4sFz6oNHOnKFS vbGxhcHNlOiBj t3mnIWIcQOcgKT6itBzzZ 8WkkSZ7SQPjp3h4Fd75wY I+KHFqSHP8dJmsXAjav47 7XpVui2ihUPZ8 sOQkHUibQOO2A29ct4L8A JDnKXMyAVU0ePB8iK5kqD tiydqdN0EicRQjYtU8UUT 9fITwkQ1kuHib fixavM8bPmx+H73FEU7NL AUJGS1NCaf7G1JnYapkiM I+MO11GNWpZS80vMQfmFC rc0oksLa9PgOv QYZeCVN6eXvvNLcvi1HuV IUdS42cgBYux7E8IELioC ljdALpIeIphLZ0xT4cQCi jcydcm1mmclgq Tjbuv3ylho01qQ25D37aM WheSKYnVLX9EXNeBEUjzL zoln0lqA4mDm8+HXgne5l hz5uxrZg7JpOn IFZijvJcpEcmUWF9s6CtP k11W7ZaiIbwp7CjBtc0me 09rFUes8G8yVY0FEgtWFM suX8xNThuRwP2 GWTkIsFboN97nQJtKEuqW w2eeMulkOzzKS0kQMWvml wvEQMmqF0bPQOiuKOojVo xBM3eTYBgstuk g095BjLsGMY0LHHudDJdU 1OeiI9zFwYsSNUoNLPhH3 CofAYmGIulY686SLkwTwA 8VIWssiLzQ8Vq TFHdhTuaNgE5d4L0Eg1Er 3GdwwvwIXR8IPclCAXeWz FvCbHmVkR2A2SoDsq9AAO bnLhvQB8dJ9Nj SMQemrifbvbvzUH3GITuJ CWteB27jXGrXInzYx2td8 V4k314SMWcBFBwyS13Qt6 udDogMTBwdCBU xH6fksfga1ggegexGzNgF CDgMMl4CPv9GSUnoZhhOo TcIHG2MhX5VBM3vTWgpE5 wvWilseqmuC3x Oyc+D92ztZ4sURP7NLD0x bsrPGFbllFhXE44ZM88G7 RyPjwvdGFibGU+PGRpdiB eaMirZG1eGuPt m7tfv9QqSIjiI6ZaWWOjH RhoSaj9YWGbPKS4iTB7xS 3kCHCgMTylr3C8bML5D6O qfjKlbk7aa2kk DHZlAWapI06ayKGcv4X6P CGfuSZ1UTNmnVkkKlSpqZ 93Oyc+IITzmWnph7DhIfi af8vdh3vnlFs7 JaZrZJRyxiDzqEptRWI2w 8TvVs39G99hDSlmZVKbST MaDZUiNDDxpOqumk0lwC0 wIi8+PGNvbCB3 sWF7fM1oRVBqObC7RCoaE 821IiLziUOgEjauf7cuq9 mzpQg4DuCjFKNicrUfhRr nFQB3o8TkOv47 I30sLTcyUZPpISWfUYHfF WBewBchvr7ugD9vWt6+PC 3bo7ujza41mP88fWO+PHR aIWA4xZemTZpv LDPbpO7kKXdmCcR1PALwP qUyvV96lHSmZBggOb4zaB rqlUpyAL2jZGDboeiun71 9PdFfe5blXDPy xOOxNGbkLUW0F77nd2D8S DJrSUYjGAT1sRE5xS6nnO lnbjogbGVmdDsgdmVydGl wXHhmQRjeG169 IHRvcDsnPlBhdGllbnQgT vAkVMh9H2BmCqc1CRWxnE yyBA9bmVLkTPcpIk7zbUv wwXpiEH3oAFCv xqykk147FuBiz4xgAZInc YLoCXepHWQ8W71jf0M2VP CjQBWbBAN3tQW3rS9fiEe nbjogbGVmdDsg dvPnwPyaVPdaXXrjY874D HRvcDsnPkJpcnRoIERhdG S7ZU74RA38dRPxk2V3gBU 7W8EnRQXvhcln dwswkOM7EVYvEUAegF47E z0nrDkdWd3pRFIrPYZ0DJ SneJDwW1FqaE3sSvIqWDD nJTHxF2NqtRHi KRggA354GRlnMnO7JUCid kCeZ9XhVUEjuThoIqE3g0 C3Rs4GW4B7DL92OT54cTX ag6B8oOP5D2Ie CCOtwgdkhrlgqCA9OOZvJ EYekV07Bv2bmDteQu3tWN IoLLE7VBTdyZYqZ6HlbM6 yOiAjMDAwMDAw R7IkyYVvKTazO256BNfxT hD9TGQaxwQrA5ZjVHAbdB idPkZ1c7R8Rz7JGJs3QD0 6TP39gONrs9J2 pAC5F4RuGFZtvboxyjkjj SI2FAKpKAKqbM61Ko8gaK dzVz5jADObKNL5POPjiAE iF2YwkN9uLvLf MSWdZRSbB7WwfYVsYMqaW 838MKvdKtL8BYOiezIwG6 WpEJOeuTepKfU9b3P5Gi0 EAEIrOZ49AYV5 fWK4JT56FA22H7JjHiotx GFibGU+PHRhYmxlIHdpZH RoPScxMDAlJyBzdHlsZT0 rWb2mDIQuAUDe fCaugQYhAeSzz9wxPLOeA DbtTL6skMfzS7GxsDZ5JK Nwf7f2Ik30T32jA9WypCU +AXKiwHK0xHY0 cZ7uNxUsCkE9KEnxH369E fGouZUvHjrtw6hfy6augM u3GkM2NWRxmcFwzQmzERQ 2q1GrDk19Y09q IHdpZHRoPSIxNSUiIHZhb Szsvp0anK3zUr7+PGNvbC A5nJU4uC7tDkIkBkZ8MAb yR259MhOzaTJm Sjvli8tku6xvaKc6CbUgD YHxhuZaeHymOIF3d7AfDa 77I6HozVwol5DcIjz2lc1 2kPQvd2Y6eAI5 A4YjVFKuvqtsvTQcdQqfP I0gPMIbztgsPBPssK3lSL XbK8j2KxMtGrJ6GZmtO4N rliT3UQBmgSGh VQkgDMH4Z05bi6W5JWBwE SHqMMM5uMS6jQ6kjPmivl ogbGVmdDsgdmVydGljYWw rNIjeB812YKZi gBsuHVYnmM9vANVobEWfz KxaNG5oCTGkzpnwSkwIMR xTLCBTSEVSUlkgRDwvdGQ +UERzBOC1hSds VKkrGWLjeS9zIAJzX4c2X zMaQsH3EDxcS8LbYYMryz suKk74jL6fHyAvDrD1CFb lI7HmllG3USHj cCShKSddLEO2U68hv9F5I WWiPQLhNSP9fUD2oU7rzT lnbjogbGVmdDsgdmVydGl tOZduWTbdE805 ROUnjMjjWhO7CkJbPuN2S UQ4R6PwPii5ROPxuRxfFS 7ngLDuGWyzPp5ihDuziTo yQT1kMNWolbdx QMZuzD5yVVZtaQOahCpkJ L4uMAZdtapsw844YuSeMB U3OCOapYQkW2LkkH1lNvP gGEPbIVSpR7Px iFRdKBxmP355KKuqUcJ3O OTmpyDhG7GsFOVofQcfDq Q7h6K3Vg22DxFAHIMeygb vdGQ+PHRkIHN0 cOrfCEmhORYytP1oFTReF 4c9EqYoPtN0LFdcZ7RvJH EzsrcqDa48cW2oOuMfQoX 8RFygN3FcljO1 HUSpoGTbQCyxZHP6W92fl 4D5JMPmTRZlNWU8zGY5pS 1hbGlnbjogbGVmdDsgdmV ydGljYWwtYWxp Q854MYEjlTabNcCdtMWaL TwvdGQ+ZCWjRVY9fYvmDW tlAJNplB3aYEAmW7g5GqO cQoH7LVciE8Ls EWUoiqowHb03eS9nExJhT qP8TExyS7LpxcD4FGRyyR YkMXveAYG8Y37yb0C6AIL cDVApFUN1kOA4 fL5ryReblvlaiGQzeAnyn eVrvYouQUuzEEwfH797EQ UtxKfjDbNuiX0qNKJqTGj lbWVudDwvdGQ+ TJ77yq05C0TmClwqCdt9V OWqPJP2yUO6oE5yWNWpMO zvt1O0rOX6L4HgeyLxsx1 vp0sqVWOhMLfs I44zlRYcj0V4ZGYxnYG3R DGsfCedKrAfxI41Vkb+PG KzpOqed1LlTyiap5baz5z ruMw3IlWxLHSg okZcgXbwUYB9f5TmNv54T 29sIHdpZHRoPSIzMCUiIH UseDckoq0nqK7aIx2+PGN hbWH5aIH2lK0a XtSpSrE4DWmdB258XuKkd JAeVrdmz9obf0rvwOt2Ju XgVINzfmRnyFtyGAP4f2A sJj35J2AkyEit p2WlVzj4ri54nREue9E8t JY6R5FkSNItwomybJCbgX olPB1kFXSzhotyJAHawR0 qMRLaV9j7OvEo UiG4NDflZ1KzpcT6QEUpv HRoBHYsiWMKqR6gwrsec8 efxqhkGhNqTWUqCUl1UQt 0LWFsaWduOiBs BXV1JlR5DOP0aAUalG4fy KrxnnbiuK0dNdw+UGh5c2 lqpVFfRH1aqZZ1MH09SL9 9hQQqw3O0aJL4 T7AnXQDtuqvwcqwfsTY1Y TYxCXOiqC36Hs8tvUrsRn 5lTZYfXHA5EOScvCEmU6W zuZ1qSzGdCMZr DVXcJ2DniFZvEWvgV385S XigOtG4XZFsjuSaB9ZxRP CorTyxKuE1i2T9Mt6TAU9 7GH99MA05gTCf g3D0xQZ2G6YoIQTexjwef smgoXG8PNXbPHTpsJ15Jv 5vcOdmZm0xAVGwIPC9UTC yeZJtY3UdcV3y ItMeAZAbLZTeK1CjcCHpZ VatI483EDaoOdT1ZNOuhs HqQ8QlXKOugBihBpQ2k6O 1Vh2RWa40ZC42 CQ32aEByx2B5mNR9A3DbL HJmwdyhfhvtdDU7YIBlBT VmeY36Zc5siLpkNe4rLTE oDOO9UAZetHPt R4PxuU9qWlFxQRVfYWZrU 9OvoEDvSMfvS853SUejIq K3HRUburOtI9DhYJMfpCj fAjZ8u5X1Ng2P QIdahij8M8PhYengjIR+P M63KMVzTP50wMFueCHyz9 msgSz8DuElAPWtUUD4mRr jAPgez6PkRSNi Y29s (more content not included)... Normal [facility] Referrals Officeon 3 Referrals Office [id number]# 1.00CD:127 [facility] Consent for Treatmenton 06-12 Consent for Treatment [id number]# 1.00CD:127 Normal [facility] Consent for Treatment [id number]#1 .00CD:127 Normal [facility] Consultation Noteon 07-04-19 Consultation Note Patient: DIANN [...] gave her 50% relief. She intermittently uses [place] 5/325 twice daily as needed pain. She can only walk around the grocery store if she has a cart. Previous physical therapy did not help. Previous injection did give some relief but not quite enough. She did see Dr. Christ Rodriguez. He had ordered the MRI of the cervical spine. Unfortunate, she does not want to travel all the way to [facility] to see him. She wonders if there is somebody locally she can see if it is needed. Health Status Allergies: Allergic Reactions (Selected) Severity Not Documented Amoxicillin- Hives., Allergies (1) Active Reaction amoxicillin Hives Current medications: (Selected) Prescriptions Prescribed Levsin 0.125 mg SL Tab: 0.125 mg = 1 tab(s), Oral, QID, PRN Spasm, # 20 tab(s), Refills(s) 0, [id number] 158, cm, 10/31/21 16:20:00 EDT, Height/Length Dosing, 97.9, kg, 10/31/21 16:20:00 EDT, Weight Dosing [place] 325 mg-5 mg oral tablet: 1 tab(s), Oral, BID as needed for pain, 60 tab(s), Refill(s) 0, [id number] 158, cm, 06/02/22 12:59:00 EST, Height/Length Dosing, 101.6, kg, 03/27/22 15:44:00 EST, Weight Dosing [place] 325 mg-5 mg oral tablet: 1 tab(s), Oral, BID as needed for pain, 60 tab(s), Refill(s) 0, [id number] 158, cm, 09/18/21 13:15:00 EDT, Height/Length Dosing, 95.2, kg, 05/31/21 12:51:00 EST, Weight Dosing [place] 325 mg-5 mg oral tablet: 1 tab(s), Oral, BID as needed for pain, 60 tab(s), Refill(s) 0, [facility], 158, cm, 07/04/22 14:50:00 EST, Height/Length Dosing, 99, kg, 07/04/22 14:50:00 EST, Weight Dosing gabapentin 300 mg Cap: See Instructions, 1 cap(s) Oral Qam 2 caps QHS, # 270 cap(s), Refills(s) 0, Pharmacy: [facility], 158, cm, 05/31/21 12:51:00 EST, Height/Length Dosing, 95.2, kg, 05/31/21 12:51:00 EST, Weight Dosing gabapentin 300 mg Cap: See Instructions, one cap in AM, 2 caps at bedtime., # 270 cap(s), Refills(s) 0, Pharmacy: [facility], 158, cm, 04/30/22 [...] Problems Chronic back pain / SNOMED CT 480417836 / Confirmed Osteoarthritis / SNOMED CT 6251570776 / Confirmed Hematuria / SNOMED CT 203257957 / Confirmed Anemia / SNOMED CT 285824504 / Confirmed HTN (hypertension) / SNOMED CT 3485266444 / Confirmed Glaucoma / SNOMED CT 57143921 / Confirmed Hypothyroid / SNOMED CT 20113370 / Confirmed C. difficile diarrhea / SNOMED CT 5944992182 / Confirmed Anemia / SNOMED CT 128269838 / Confirmed Arthritis / SNOMED CT 7626257 / Confirmed Heart disease / SNOMED CT 12120244 / Confirmed Hypertension / SNOMED CT 3022173320 / Confirmed Hyperlipidemia / SNOMED CT 20654680 / Confirmed Sleep apnea / SNOMED CT 349704970 / Confirmed Long-term curren (more content not included)... Normal [facility] Comment on above: Result Comment: Elec tronically Signed By: Josue SOMMERS, Chad\.br\Date and Time Signed: 07/04/22 19:27 EST In office Testingon 07-04-19 23 In office Testing [id number]# 1.00CD:127 Normal [facility] Office/Clinic Note-Physician on 07-04-2022 Office/Clinic Note-Physician [id number]# 1.00CD:127 Normal [facility] Drug Screen-LCOrdered By : Celeste Lomax on 07-04-2022 Test Name STRIPPER OPAQUER Invalid Interpretation Code [facility] Comment on above: Performed By: #### 1 [id number] #### [facility] [address] [place] [id number] Patient Correspondenceon Patient Correspondence [id number]# 1.00CD:127 Normal [facility] Patient History Officeon Patient History Office [id number]# 1.00CD:127 Normal [facility] CBC AUTO DIFFon 06-06-2022 BASO # 0.1 103/ul Normal 0.0-0.1 [facility] Comment on above: Performed By: #### C BC #### [facility] [address] [place] [address] Dr. Sherry Sanches Basophils/100 WBC (Bld) 0.8 % Normal 0.2-2.0 [facility] Comment on above: Performed By: #### C BC #### [facility] [address] [address] [address] Sherry Sanches EO # 0.2 103/ul Normal 0.0-0.7 [facility] Comment on above: Performed By: #### C BC #### [facility] [address] [address] [address] Sherry Sanches Eosinophils/100 WBC (Bld) 3.0 % Normal 0.9-7.0 [facility] Comment on above: Performed By: #### C BC #### [facility] [address] [address] [address] Sherry Sanches Erythrocyte distribution width (RBC) [Ratio] 13.5 % Normal 11.0-15.0 [facility] Comment on above: Performed By: #### C BC #### [facility] [address] [place] [address] Dr. Sherry Sanches Hematocrit (Bld) [Volume fraction] 34.7 % Critically low 36.0-48.0 [facility] Comment on above: Performed By: #### C BC #### [facility] [address] [place] [address] Dr. Sherry Sanches Hemoglobin (Bld) [Mass/Vol] 12.1 g/dL Normal 12.0-16.0 [facility] Comment on above: Performed By: #### C BC #### [facility] [address] [place] [address] Dr. Sherry Sanches IG # 0.04 10e3/ul Critically high 0.00-0.03 [facility] Comment on above: Performed By: #### C BC #### [facility] [address] [address] [address] Sherry Sanches IG % 0.7 % Critically high 0.0-0.5 [facility] Comment on above: Performed By: #### C BC #### [facility] [address] [place] [address] Dr. Sherry Sanches LYMPH # 1.4 103/ul Normal 1.2-3.8 [facility] Comment on above: Performed By: #### C BC #### [facility] [address] [place] [address] Dr. Sherry Sanches Lymphocytes/100 WBC (Bld) 23.9 % Normal 20.5-60.0 [facility] Comment on above: Performed By: #### C BC #### [facility] [address] [place] [address] Dr. Sherry Sanches MANUAL DIFF REQ NO Normal [facility] Comment on above: Performed By: #### C BC #### [facility] [address] [place] [address] Dr. Sherry Sanches MCH (RBC) [Entitic mass] 31.2 pg Normal 26.7-34.0 [facility] Comment on above: Performed By: #### C BC #### [facility] [address] [place] [address] Dr. Sherry Sanches MCHC (RBC) [Mass/Vol] 34.9 g/dL Normal 29.9-35.2 [facility] Comment on above: Performed By: #### C BC #### [facility] [address] [place] [address] Dr. Sherry Sanches MCV (RBC) [Entitic vol] 89.4 fL Normal 81.0-99.0 [facility] Comment on above: Performed By: #### C BC #### [facility] [address] [place] [address] Dr. Sherry Sanches MONO # 0.8 103/ul Normal 0.3-0.8 [facility] Comment on above: Performed By: #### C BC #### [facility] [address] [place] [address] Dr. Sherry Sanches Monocytes/100 WBC (Bld) 13.8 % Critically high 1.7-12.0 [facility] Comment on above: Performed By: #### C BC #### [facility] [address] [place] [address] Dr. Sherry Sanches NEUT # 3.5 103/ul Normal 1.4-6.5 [facility] Comment on above: Performed By: #### C BC #### [facility] [address] [address] [address] Sherry Sanches Neutrophils/100 WBC (Bld) 57.8 % Normal 43.0-75.0 [facility] Comment on above: Performed By: #### C BC #### [facility] [address] [address] [address] Sherry Sanches Platelet mean volume (Bld) [Entitic vol] 8.8 fL Critically low 9.5-13.5 [facility] Comment on above: Performed By: #### C BC #### [facility] [address] [address] [address] Sherry Sanches PLT 259 103/ul Normal 150-450 [facility] Comment on above: Performed By: #### C BC #### [facility] [address] [place] [address] Dr. Sherry Sanches RBC 3.88 106/ul Critically low 4.20-5.40 [facility] Comment on above: Performed By: #### C BC #### [facility] [address] [place] [address] Dr. Sherry Sanches WBC 6.0 103/ul Normal 4.0-11.0 [facility] Comment on above: Performed By: #### C BC #### [facility] [address] [place] [address] Dr. Sherry Sanches MAGNESIUMon 06-06-2022 Magnesium [Mass/Vol] 2.1 mg/dL Normal 1.8-2.4 [facility] Comment on above: Performed By: #### H STROPN #### [facility] [address] [place] [address] Dr. Shrery Sanches PHOSPHORUSon 06-06-2022 Phosphate [Mass/Vol] 4.1 mg/dL Normal 2.6-4.7 [facility] Comment on above: Performed By: #### H STROPN #### [facility] [address] [place] [address] Dr. Sherry Sanches PROF 14(COMP METB)on 023 Albumin [Mass/Vol] 4.0 g/dL Normal 3.4-5.0 [facility] Comment on above: Performed By: #### H STROPN #### [facility] [address] [place] [address] Dr. Sherry Sanches Albumin/Globulin [Mass ratio] 1.3 {ratio} Normal [facility] Comment on above: Performed By: #### H STROPN #### [facility] [address] [address] [address] Sherry Sanches ALP [Catalytic activity/Vol] 83 U/L Normal 46-116 [facility] Comment on above: Performed By: #### H STROPN #### [facility] [address] [address] [address] Sherry Sanches ALT [Catalytic activity/Vol] 19 U/L Normal 14-59 [facility] Comment on above: Performed By: #### H STROPN #### [facility] [address] [place] [address] Dr. Sherry Sanches Anion gap [Moles/Vol] 14.4 mmol/L Normal [facility] Comment on above: Performed By: #### H STROPN #### [facility] [address] [address] [address] Sherry Sanches AST [Catalytic activity/Vol] 16 U/L Normal 15-37 [facility] Comment on above: Performed By: #### H STROPN #### [facility] [address] [place] [address] Dr. Sherry Sanches Bilirubin [Mass/Vol] 0.6 mg/dL Normal 0.2-1.0 [facility] Comment on above: Performed By: #### H STROPN #### [facility] [address] [address] [address] Sherry Sanches Calcium [Mass/Vol] 9.8 mg/dL Normal 8.5-10.1 [facility] Comment on above: Performed By: #### H STROPN #### [facility] [address] [place] [address] Dr. Sherry Sanches Chloride [Moles/Vol] 104 mmol/L Normal 98-107 [facility] Comment on above: Performed By: #### H STROPN #### [facility] [address] [address] [address] Sherry Sanches CO2 [Moles/Vol] 28.7 mmol/L Normal 21.0-32.0 [facility] Comment on above: Performed By: #### H STROPN #### [facility] [address] [address] [address] Sherry Sanches Creatinine [Mass/Vol] 1.37 mg/dL Critically high 0.55-1.02 [facility] Comment on above: Performed By: #### H STROPN #### [facility] [address] [address] [address] Sherry Sanches EGFR-AF YEMENI 46 mL/min/1.73m2 Critically low >=60 [facility] Comment on above: Performed By: #### H STROPN #### [facility] [address] [address] [address] Sherry Sanches EGFR-NON AF YEMENI 38 mL/min/1.73m2 Critically low >=60 [facility] Comment on above: Performed By: #### H STROPN #### [facility] [address] [address] [address] Sherry Sanches Globulin (S) [Mass/Vol] 3.1 g/dL Normal [facility] Comment on above: Performed By: #### H STROPN #### [facility] [address] [address] [address] Sherry Sanches Glucose [Mass/Vol] 96 mg/dL Normal 74-106 [facility] Comment on above: Performed By: #### H STROPN #### [facility] [address] [address] [address] Sherry Sanches Potassium [Moles/Vol] 4.1 mmol/L Normal 3.5-5.1 [facility] Comment on above: Performed By: #### H STROPN #### [facility] [address] [address] [address] Sherry Sanches Protein [Mass/Vol] 7.1 g/dL Normal 6.4-8.2 [facility] Comment on above: Performed By: #### H STROPN #### [facility] [address] [address] [address] Sherry Sanches Sodium [Moles/Vol] 143 mmol/L Normal 136-145 [facility] Comment on above: Performed By: #### H STROPN #### [facility] [address] [address] [address] Sherry Sanches Urea nitrogen [Mass/Vol] 31.0 mg/dL Critically high 7.0-18.0 [facility] Comment on above: Performed By: #### H STROPN #### [facility] [address] [address] [address] Sherry Sanches Urea nitrogen/Creatinine [Mass ratio] 22.6 mg/mg Normal [facility] Comment on above: Performed By: #### H STROPN #### [facility] [address] [address] [address] Sherry Sanches CULTURE URINEon 05-22-2022 CULTURE URINE Culture Observations : GREATER THAN TWO ORGANISMS PRESENT. PLEASE RESUBMIT CLEAN CATCH MID-STREAM URINE IF CLINICALLY INDICATED. Normal [facility] Comment on above: Performed By: #### U RCX ####[facility] [id number] [id number] Sherry Sanches UA (CLEAN/CATCH) MICROSCOPIC IF INDICATEon 05-20-2022 Bilirubin Ql (U) Negative Normal NEGATIVE [facility] Comment on above: Performed By: #### C BC #### [facility] [address] [address] [address] Sherry Sanches Clarity (U) CLEAR Normal CLEAR [facility] Comment on above: Performed By: #### C BC #### [facility] [address] [address] [address] Sherry Sanches Color (U) LT. YELLOW Normal YELLOW [facility] Comment on above: Performed By: #### C BC #### [facility] [address] [address] [address] Sherry Sanches Glucose Ql (U) Negative Normal NEGATIVE [facility] Comment on above: Performed By: #### C BC #### [facility] [address] [place] [address] Dr. Sherry Sanches Hemoglobin Ql (U) Negative Normal NEGATIVE [facility] Comment on above: Performed By: #### C BC #### [facility] [address] [place] [address] Dr. Sherry Sanches Ketones Ql (U) Negative Normal NEGATIVE [facility] Comment on above: Performed By: #### C BC #### [facility] [address] [place] [address] Dr. Sherry Sanches LEUKOCYTES SMALL Abnormal NEGATIVE [facility] Comment on above: Performed By: #### C BC #### [facility] [address] [place] [address] Dr. Sherry Sanches Nitrite Ql (U) Negative Normal NEGATIVE [facility] Comment on above: Performed By: #### C BC #### [facility] [address] [place] [address] Dr. Sherry Sanches pH (U) 5.0 [pH] Normal 5-9 [facility] Comment on above: Performed By: #### C BC #### [facility] [address] [place] [address] Dr. Sherry Sanches SPEC GRAVITY 1.020 Normal 1.005-<=1.02 5 [facility] Comment on above: Performed By: #### C BC #### [facility] [address] [place] [address] Dr. Sherry Sanches UA PROTEIN Negative Normal NEGATIVE/ TRACE [facility] Comment on above: Performed By: #### C BC #### [facility] [address] [place] [address] Dr. Sherry Sanches UR MICRO IND INDICATED Normal [facility] Comment on above: Performed By: #### C BC #### [facility] [address] [place] [address] Dr. Sherry Sanches Urobilinogen Qn (U) 0.2 {Ellen'U}/dL Normal 0.2 - 1. 0 [facility] Comment on above: Performed By: #### C BC #### [facility] [address] [place] [address] Dr. Sherry Sanches URINE MICROSCOPIC ONLYon BACTERIA TRACE Abnormal NONE SEEN [facility] Comment on above: Performed By: #### C BC #### [facility] [address] [place] [address] Dr. Sherry Sanches Bacteria identified Cx Nom (U) CX ALREADY ORDERED Normal [facility] Comment on above: Performed By: #### C BC #### [facility] [address] [place] [address] Dr. Sherry Sanches CAST NONE SEEN Normal NONE SEEN [facility] Comment on above: Performed By: #### C BC #### [facility] [address] [place] [address] Dr. Sherry Sanches Crystals LM Nom (Urine sed) NONE SEEN Normal NONE SEEN [facility] Comment on above: Performed By: #### C BC #### [facility] [address] [place] [address] Dr. Sherry Sanches Epithelial cells LM Ql (Urine sed) FEW Abnormal NONE SEEN /RARE [facility] Comment on above: Performed By: #### C BC #### [facility] [address] [place] [address] Dr. Sherry Sanches MUCOUS SMALL Abnormal NONE SEEN [facility] Comment on above: Performed By: #### C BC #### [facility] [address] [place] [address] Dr. Sherry Sanches RBC NONE SEEN Abnormal 0-2 [facility] Comment on above: Performed By: #### C BC #### [facility] [address] [place] [address] Dr. Sherry Sanches WBC 2-5 Abnormal NONE SEEN [facility] Comment on above: Performed By: #### C BC #### [facility] [address] [place] [address] Dr. Sherry Sanches US THYROIDon 05-07-2022 US [...] LONNIE MCCORMACK Date: 2022-05-07 16:17 Normal [facility] THYROGLOBULIN ABon Thyroglobulin Antibody <1.0 Normal 0.0-0.9 [facility] Comment on above: Result Comment: Thyr oglobulin Antibody measured by Yoli Chapin Methodology Performed By: #### C BC #### [facility] [address] [place] [address] Dr. Sherry Sanches TSHon 04-24-2022 TSH 2.515 uIU/mL Normal 0.358-3.740 [facility] Comment on above: Performed By: #### T SH #### [facility] [address] [place] [address] Dr. Sherry Sanches CULTURE URINEon 04-07-2022 CULTURE URINE Culture Observations : HERB TO FOLLOW. Isolate 1 Streptococcus agalactiae 50,000 cfu/mL of Normal [facility] Comment on above: Performed By: #### U RCX ####[facility] [id number] [address]Dr. Sherry Sanches BNPon 03-31-2022 Natriuretic peptide B (Bld) [Mass/Vol] 98.0 pg/mL Normal <=900.0 [facility] Comment on above: Performed By: #### C VDAGS #### [facility] [address] [place] [address] Dr. Sherry Sanches CBC AUTO DIFFon 03-31-2022 BASO # 0.0 103/ul Normal 0.0-0.1 [facility] Comment on above: Performed By: #### C BC #### [facility] [address] [place] [address] Dr. Sherry Sanches Basophils/100 WBC (Bld) 0.6 % Normal 0.2-2.0 [facility] Comment on above: Performed By: #### C BC #### [facility] [address] [place] [address] Dr. Sherry Sanches EO # 0.2 103/ul Normal 0.0-0.7 [facility] Comment on above: Performed By: #### C BC #### [facility] [address] [place] [address] Dr. Sherry Sanches Eosinophils/100 WBC (Bld) 3.3 % Normal 0.9-7.0 [facility] Comment on above: Performed By: #### C BC #### [facility] [address] [place] [address] Dr. Sherry Sanches Erythrocyte distribution width (RBC) [Ratio] 13.7 % Normal 11.0-15.0 [facility] Comment on above: Performed By: #### C BC #### [facility] [address] [place] [address] Dr. Sherry Sanches Hematocrit (Bld) [Volume fraction] 37.7 % Normal 36.0-48.0 [facility] Comment on above: Performed By: #### C BC #### [facility] [address] [place] [address] Dr. Sherry Sanches Hemoglobin (Bld) [Mass/Vol] 12.4 g/dL Normal 12.0-16.0 [facility] Comment on above: Performed By: #### C BC #### [facility] [address] [place] [address] Dr. Sherry Sanches IG # 0.01 10e3/ul Normal 0.00-0.03 [facility] Comment on above: Performed By: #### C BC #### [facility] [address] [place] [address] Dr. Sherry Sanches IG % 0.2 % Normal 0.0-0.5 [facility] Comment on above: Performed By: #### C BC #### [facility] [address] [place] [address] Dr. Sherry Sanches LYMPH # 1.3 103/ul Normal 1.2-3.8 [facility] Comment on above: Performed By: #### C BC #### [facility] [address] [place] [address] Dr. Sherry Sanches Lymphocytes/100 WBC (Bld) 20.5 % Normal 20.5-60.0 [facility] Comment on above: Performed By: #### C BC #### [facility] [address] [place] [address] Dr. Sherry Sanches MANUAL DIFF REQ NO Normal [facility] Comment on above: Performed By: #### C BC #### [facility] [address] [place] [address] Dr. Sherry Sanches MCH (RBC) [Entitic mass] 30.2 pg Normal 26.7-34.0 [facility] Comment on above: Performed By: #### C BC #### [facility] [address] [place] [address] Dr. Sherry Sanches MCHC (RBC) [Mass/Vol] 32.9 g/dL Normal 29.9-35.2 [facility] Comment on above: Performed By: #### C BC #### [facility] [address] [place] [address] Dr. Sherry Sanches MCV (RBC) [Entitic vol] 91.7 fL Normal 81.0-99.0 [facility] Comment on above: Performed By: #### C BC #### [facility] [address] [place] [address] Dr. Sherry Sanches MONO # 0.7 103/ul Normal 0.3-0.8 [facility] Comment on above: Performed By: #### C BC #### [facility] [address] [place] [address] Dr. Sherry Sanches Monocytes/100 WBC (Bld) 10.5 % Normal 1.7-12.0 [facility] Comment on above: Performed By: #### C BC #### [facility] [address] [place] [address] Dr. Sherry Sanches NEUT # 4.1 103/ul Normal 1.4-6.5 [facility] Comment on above: Performed By: #### C BC #### [facility] [address] [place] [address] Dr. Sherry Sanches Neutrophils/100 WBC (Bld) 64.9 % Normal 43.0-75.0 [facility] Comment on above: Performed By: #### C BC #### [facility] [address] [address] [address] Sherry Sanches Platelet mean volume (Bld) [Entitic vol] 8.4 fL Critically low 9.5-13.5 [facility] Comment on above: Performed By: #### C BC #### [facility] [address] [address] [address] Sherry Sanches PLT 270 103/ul Normal 150-450 [facility] Comment on above: Performed By: #### C BC #### [facility] [address] [address] [address] Sherry Sanches RBC 4.11 106/ul Critically low 4.20-5.40 [facility] Comment on above: Performed By: #### C BC #### [facility] [address] [place] [address] Dr. Sherry Sanches WBC 6.4 103/ul Normal 4.0-11.0 [facility] Comment on above: Performed By: #### C BC #### [facility] [address] [place] [address] Dr. Sherry Sanches LIPID PROFILEon 03-31-2022 CHOL-HDL RATIO NORM SEE BELOW Normal [facility] Comment on above: Result Comment: 3.3 - 4.4 LOW RISK 4.4 - 7.1 AVERAGE RISK 7.1 - 11.0 MODERATE RISK >11.0 HIGH RISK Performed By: #### C VDAGS #### [facility] [address] [place] [address] Dr. Sherry Sanches Cholesterol [Mass/Vol] 174 mg/dL Normal <=200 [facility] Comment on above: Performed By: #### C VDAGS #### [facility] [address] [address] [address] Sherry Sanches Cholesterol in HDL [Mass/Vol] 71 mg/dL Critically high 40-60 [facility] Comment on above: Performed By: #### C VDAGS #### [facility] [address] [place] [address] Dr. Sherry Sanches Cholesterol in LDL [Mass/Vol] 59.6 mg/dL Normal [facility] Comment on above: Performed By: #### C VDAGS #### [facility] [address] [address] [address] Sherry Sanches Cholesterol.total/Cho lesterol in HDL [Mass ratio] 2.5 {ratio} Normal [facility] Comment on above: Performed By: #### C VDAGS #### [facility] [address] [address] [address] Sherry Sanches HDL NORMAL > or = 60 mg/dl - LO W CARDIOVASCULAR RISK <40 mg/dl - HIGH CARDIOVASCULAR RISK Normal [facility] Comment on above: Performed By: #### C VDAGS #### [facility] [address] [address] [address] Sherry Sanches LDL CALC NORMAL SEE BELOW Normal [facility] Comment on above: Result Comment: <100 mg/dl OPTIMAL 100 - 129 mg/dl NEAR OR ABOVE OPTIMAL 130 - 159 mg/dl BORDERLINE HIGH 160 - 189 mg/dl HIGH >190 mg/dl VERY HIGH Performed By: #### C VDAGS #### [facility] [address] [place] [address] Dr. Sherry Sanches Triglyceride [Mass/Vol] 217 mg/dL Critically high <=150 [facility] Comment on above: Performed By: #### C VDAGS #### [facility] [address] [place] [address] Dr. Sherry Sanches VLDL CALC 43.4 mg/dL Normal [facility] Comment on above: Performed By: #### C VDAGS #### [facility] [address] [address] [address] Sherry Sanches PROF CHEM 8 (BAS METB)on Anion gap [Moles/Vol] 13.8 mmol/L Normal [facility] Comment on above: Performed By: #### C VDAGS #### [facility] [address] [place] [address] Dr. Sherry Sanches Calcium [Mass/Vol] 9.9 mg/dL Normal 8.5-10.1 [facility] Comment on above: Performed By: #### C VDAGS #### [facility] [address] [address] [address] Sherry Sanches Chloride [Moles/Vol] 101 mmol/L Normal 98-107 [facility] Comment on above: Performed By: #### C VDAGS #### [facility] [address] [address] [address] Sherry Sanches CO2 [Moles/Vol] 29.8 mmol/L Normal 21.0-32.0 [facility] Comment on above: Performed By: #### C VDAGS #### [facility] [address] [address] [address] Sherry Sanches Creatinine [Mass/Vol] 1.58 mg/dL Critically high 0.55-1.02 [facility] Comment on above: Performed By: #### C VDAGS #### [facility] [address] [address] [address] Sherry Sanches EGFR-AF YEMENI 39 mL/min/1.73m2 Critically low >=60 [facility] Comment on above: Performed By: #### C VDAGS #### [facility] [address] [address] [address] Sherry Sanches EGFR-NON AF YEMENI 32 mL/min/1.73m2 Critically low >=60 [facility] Comment on above: Performed By: #### C VDAGS #### [facility] [address] [address] [address] Sherry Sanches Glucose [Mass/Vol] 115 mg/dL Critically high 74-106 [facility] Comment on above: Performed By: #### C VDAGS #### [facility] [address] [address] [address] Sherry Sanches Potassium [Moles/Vol] 4.6 mmol/L Normal 3.5-5.1 [facility] Comment on above: Performed By: #### C VDAGS #### [facility] [address] [address] [address] Sherry Sanches Sodium [Moles/Vol] 140 mmol/L Normal 136-145 [facility] Comment on above: Performed By: #### C VDAGS #### [facility] [address] [place] [address] Dr. Sherry Sanches Urea nitrogen [Mass/Vol] 26.0 mg/dL Critically high 7.0-18.0 [facility] Comment on above: Performed By: #### C VDAGS #### [facility] [address] [place] [address] Dr. Sherry Sanches Urea nitrogen/Creatinine [Mass ratio] 16.5 mg/mg Normal [facility] Comment on above: Performed By: #### C VDAGS #### [facility] [address] [place] [address] Dr. Sherry Sanches CBC AUTO DIFFon 02-16-2022 BASO # 0.0 103/ul Normal 0.0-0.1 [facility] Comment on above: Performed By: #### T SH #### [facility] [address] [place] [address] Dr. Sherry Sacnhes Basophils/100 WBC (Bld) 0.5 % Normal 0.2-2.0 [facility] Comment on above: Performed By: #### T SH #### [facility] [address] [place] [address] Dr. Sherry Sanches EO # 0.2 103/ul Normal 0.0-0.7 [facility] Comment on above: Performed By: #### T SH #### [facility] [address] [place] [address] Dr. Sherry Sanches Eosinophils/100 WBC (Bld) 3.9 % Normal 0.9-7.0 [facility] Comment on above: Performed By: #### T SH #### [facility] [address] [place] [address] Dr. Sherry Sanches Erythrocyte distribution width (RBC) [Ratio] 13.2 % Normal 11.0-15.0 [facility] Comment on above: Performed By: #### T SH #### [facility] [address] [place] [address] Dr. Sherry Sanches Hematocrit (Bld) [Volume fraction] 31.0 % Critically low 36.0-48.0 [facility] Comment on above: Performed By: #### T SH #### [facility] [address] [address] [address] Sherry Sanches Hemoglobin (Bld) [Mass/Vol] 9.9 g/dL Critically low 12.0-16.0 [facility] Comment on above: Performed By: #### T SH #### [facility] [address] [address] [address] Sherry Sanches IG # 0.05 10e3/ul Critically high 0.00-0.03 [facility] Comment on above: Performed By: #### T SH #### [facility] [address] [address] [address] Sherry Sanches IG % 0.8 % Critically high 0.0-0.5 [facility] Comment on above: Performed By: #### T SH #### [facility] [address] [place] [address] Dr. Sherry Sanches LYMPH # 0.7 103/ul Critically low 1.2-3.8 [facility] Comment on above: Performed By: #### T SH #### [facility] [address] [address] [address] Sherry Sanches Lymphocytes/100 WBC (Bld) 12.0 % Critically low 20.5-60.0 [facility] Comment on above: Performed By: #### T SH #### [facility] [address] [address] [address] Sherry Sanches MANUAL DIFF REQ NO Normal [facility] Comment on above: Performed By: #### T SH #### [facility] [address] [address] [address] Sherry Sanches MCH (RBC) [Entitic mass] 30.0 pg Normal 26.7-34.0 [facility] Comment on above: Performed By: #### T SH #### [facility] [address] [place] [address] Dr. Sherry Sanches MCHC (RBC) [Mass/Vol] 31.9 g/dL Normal 29.9-35.2 [facility] Comment on above: Performed By: #### T SH #### [facility] [address] [address] [address] Sherry Sanches MCV (RBC) [Entitic vol] 93.9 fL Normal 81.0-99.0 [facility] Comment on above: Performed By: #### T SH #### [facility] [address] [address] [address] Sherry Sanches MONO # 0.8 103/ul Normal 0.3-0.8 [facility] Comment on above: Performed By: #### T SH #### [facility] [address] [address] [address] Sherry Sanches Monocytes/100 WBC (Bld) 12.2 % Critically high 1.7-12.0 [facility] Comment on above: Performed By: #### T SH #### [facility] [address] [place] [address] Dr. Sherry Sanches NEUT # 4.4 103/ul Normal 1.4-6.5 [facility] Comment on above: Performed By: #### T SH #### [facility] [address] [place] [address] Dr. Sherry Sanches Neutrophils/100 WBC (Bld) 70.6 % Normal 43.0-75.0 [facility] Comment on above: Performed By: #### T SH #### [facility] [address] [place] [address] Dr. Sherry Sanches Platelet mean volume (Bld) [Entitic vol] 9.0 fL Critically low 9.5-13.5 [facility] Comment on above: Performed By: #### T SH #### [facility] [address] [place] [address] Dr. Sherry Sanches PLT 254 103/ul Normal 150-450 [facility] Comment on above: Performed By: #### T SH #### [facility] [address] [place] [address] Dr. Sherry Sanches RBC 3.30 106/ul Critically low 4.20-5.40 [facility] Comment on above: Performed By: #### T SH #### [facility] [address] [address] [address] Sherry Sanches WBC 6.2 103/ul Normal 4.0-11.0 [facility] Comment on above: Performed By: #### T SH #### [facility] [address] [place] [address] Dr. Sherry Sanches PROF CHEM 8 (BAS METB)on Anion gap [Moles/Vol] 12.0 mmol/L Normal [facility] Comment on above: Performed By: #### C VDAGS #### [facility] [address] [place] [address] Dr. Sherry Sanches Calcium [Mass/Vol] 8.1 mg/dL Critically low 8.5-10.1 [facility] Comment on above: Performed By: #### C VDAGS #### [facility] [address] [place] [address] Dr. Sherry Sanches Chloride [Moles/Vol] 102 mmol/L Normal 98-107 [facility] Comment on above: Performed By: #### C VDAGS #### [facility] [address] [place] [address] Dr. Sherry Snaches CO2 [Moles/Vol] 30.3 mmol/L Normal 21.0-32.0 [facility] Comment on above: Performed By: #### C VDAGS #### [facility] [address] [place] [address] Dr. Sherry Sanches Creatinine [Mass/Vol] 1.85 mg/dL Critically high 0.55-1.02 [facility] Comment on above: Performed By: #### C VDAGS #### [facility] [address] [place] [address] Dr. Sherry Sanches EGFR-AF YEMENI 32 mL/min/1.73m2 Critically low >=60 [facility] Comment on above: Performed By: #### C VDAGS #### [facility] [address] [place] [address] Dr. Sherry Sanches EGFR-NON AF YEMENI 27 mL/min/1.73m2 Critically low >=60 [facility] Comment on above: Performed By: #### C VDAGS #### [facility] [address] [address] [address] Sherry Sanches Glucose [Mass/Vol] 108 mg/dL Critically high 74-106 [facility] Comment on above: Performed By: #### C VDAGS #### [facility] [address] [address] [address] Sherry Sanches Potassium [Moles/Vol] 3.3 mmol/L Critically low 3.5-5.1 [facility] Comment on above: Performed By: #### C VDAGS #### [facility] [address] [address] [address] Sherry Sanches Sodium [Moles/Vol] 141 mmol/L Normal 136-145 [facility] Comment on above: Performed By: #### C VDAGS #### [facility] [address] [address] [address] Sherry Sanches Urea nitrogen [Mass/Vol] 27.0 mg/dL Critically high 7.0-18.0 [facility] Comment on above: Performed By: #### C VDAGS #### [facility] [address] [address] [address] Sherry Sanches Urea nitrogen/Creatinine [Mass ratio] 14.6 mg/mg Normal [facility] Comment on above: Performed By: #### C VDAGS #### [facility] [address] [address] [address] Sherry Sanches BNPon 02-15-2022 Natriuretic peptide B (Bld) [Mass/Vol] 1135.0 pg/mL Critically high <=900.0 [facility] Comment on above: Performed By: #### B MP, BNP ####[facility] [id number] [place], [place] [address]Dr. Sherry Sanches CBC AUTO DIFFon 02-15-2022 BASO # 0.0 103/ul Normal 0.0-0.1 [facility] Comment on above: Performed By: #### C BC ####[facility] [id number] [address]. Powell Sanches Basophils/100 WBC (Bld) 0.5 % Normal 0.2-2.0 [facility] Comment on above: Performed By: #### C BC ####[facility] [id number] [address]Dr. Sherry Sanches EO # 0.2 103/ul Normal 0.0-0.7 [facility] Comment on above: Performed By: #### C BC ####[facility] [address] [place], [place] [address]Dr. Sherry Sanches Eosinophils/100 WBC (Bld) 3.3 % Normal 0.9-7.0 [facility] Comment on above: Performed By: #### C BC ####[facility] [address] [place], [place] [address]Dr. Sherry Sanches Erythrocyte distribution width (RBC) [Ratio] 13.2 % Normal 11.0-15.0 [facility] Comment on above: Performed By: #### C BC ####[facility] [address] [place], [place] [address]Dr. Sherry Sanches Hematocrit (Bld) [Volume fraction] 30.1 % Critically low 36.0-48.0 [facility] Comment on above: Performed By: #### C BC ####[facility] [address] [place], [place] [address]Dr. Sherry Sanches Hemoglobin (Bld) [Mass/Vol] 9.9 g/dL Critically low 12.0-16.0 [facility] Comment on above: Performed By: #### C BC ####[facility] Okw[address] [place], [place] [address]Dr. Sherry Sanches IG # 0.03 10e3/ul Normal 0.00-0.03 [facility] Comment on above: Performed By: #### C BC ####[facility] Nrj[address]fn[address] [place], [place] [address]Dr. Sherry Sanches IG % 0.5 % Normal 0.0-0.5 [facility] Comment on above: Performed By: #### C BC ####[facility] [address] [place] [id number]. Sherry Sanches LYMPH # 0.8 103/ul Critically low 1.2-3.8 The [facility] Comment on above: Performed By: #### C BC ####[facility] [address]disz[address] [place] [address]Dr. Sherry Sanches Lymphocytes/100 WBC (Bld) 13.5 % Critically low 20.5-60.0 [facility] Comment on above: Performed By: #### C BC ####[facility] [address] [place] [address]Dr. Sherry Sanches MANUAL DIFF REQ NO Normal [facility] Comment on above: Performed By: #### C BC ####[facility] [address]bfptfuxvt[address] [place] [address]Dr. Naysumi Sanches MCH (RBC) [Entitic mass] 30.5 pg Normal 26.7-34.0 [facility] Comment on above: Performed By: #### C BC ####[facility] W[address] [place], [place] [address]Dr. Sherry Sanches MCHC (RBC) [Mass/Vol] 32.9 g/dL Normal 29.9-35.2 [facility] Comment on above: Performed By: #### C BC ####[facility] [address]cyq[address] [place] [address]Dr. Sherry Sanches MCV (RBC) [Entitic vol] 92.6 fL Normal 81.0-99.0 [facility] Comment on above: Performed By: #### C BC ####[facility] Yhyvx[address] [place] [address]Dr. Sherry Sanches MONO # 0.8 103/ul Normal 0.3-0.8 [facility] Comment on above: Performed By: #### C BC ####[facility] W[address] [place], [place] [address]Dr. Sherry Sanches Monocytes/100 WBC (Bld) 14.3 % Critically high 1.7-12.0 [facility] Comment on above: Performed By: #### C BC ####[facility] Egqemgwjgf[address] [place] [id number]. Naysumi Sanches NEUT # 3.9 103/ul Normal 1.4-6.5 [facility] Comment on above: Performed By: #### C BC ####[facility] [address]jcseciqem[address] [place] [id number]. Sherry Sanches Neutrophils/100 WBC (Bld) 67.9 % Normal 43.0-75.0 [facility] Comment on above: Performed By: #### C BC ####[facility] Cra[address]fnusot[address] [place] [address]Dr. Sherry Sanches Platelet mean volume (Bld) [Entitic vol] 9.2 fL Critically low 9.5-13.5 [facility] Comment on above: Performed By: #### C BC ####[facility] Pxbnypupou[address] [place] [address]Dr. Sherry Sanches PLT 242 103/ul Normal 150-450 [facility] Comment on above: Performed By: #### C BC ####[facility] Bfravntylb[address] [place] [phone] Sanches RBC 3.25 106/ul Critically low 4.20-5.40 [facility] Comment on above: Performed By: #### C BC ####[facility] Tbapdbvcte3997 [place] [id number] Sanches WBC 5.8 103/ul Normal 4.0-11.0 [facility] Comment on above: Performed By: #### C BC ####[facility] Qkykyydgjx5715 [place] [address]DrBita Sanches PROF CHEM 8 (BAS METB)on Anion gap [Moles/Vol] 11.6 mmol/L Normal [facility] Comment on above: Performed By: #### H STROPN #### [facility] Laboratory [id number] Sherry Sanches Calcium [Mass/Vol] 8.1 mg/dL Critically low 8.5-10.1 [facility] Comment on above: Performed By: #### H STROPN #### [facility] Laboratory [address] [address] [address] Sherry Sanches Chloride [Moles/Vol] 102 mmol/L Normal 98-107 [facility] Comment on above: Performed By: #### H STROPN #### [facility] Laboratory [address] [address] [address] Sherry Sanches Performed By: #### B MP, BNP ####[facility] [address]wgiyr[address]gc[address] [place] [address]Dr. Sherry Sanches CO2 [Moles/Vol] 28.8 mmol/L Normal 21.0-32.0 [facility] Comment on above: Performed By: #### H STROPN #### [facility] Laboratory [address] [address] [address] Sherry Sanches Creatinine [Mass/Vol] 2.04 mg/dL Critically high 0.55-1.02 [facility] Comment on above: Performed By: #### H STROPN #### [facility] Laboratory [address] [address] [address] Sherry Sanches EGFR-AF YEMENI 29 mL/min/1.73m2 Critically low >=60 [facility] Comment on above: Performed By: #### H STROPN #### [facility] Laboratory [address] [address] [address] Sheryr Sanches EGFR-NON AF YEMENI 24 mL/min/1.73m2 Critically low >=60 [facility] Comment on above: Performed By: #### H STROPN #### [facility] [address] [address] [address] Sherry Sanches Glucose [Mass/Vol] 99 mg/dL Normal 74-106 [facility] Comment on above: Performed By: #### H STROPN #### [facility] Laboratory [address] [address] [address] Sherry Sanches Potassium [Moles/Vol] 3.4 mmol/L Critically low 3.5-5.1 [facility] Comment on above: Performed By: #### H STROPN #### [facility] [address] [address] [address] Sherry Sanches Sodium [Moles/Vol] 139 mmol/L Normal 136-145 [facility] Comment on above: Performed By: #### H STROPN #### [facility] [address] [address] [address] Sherry Sanches Performed By: #### B MP, BNP ####[facility] [address] [place], [place] [address]OzBita Sanches Urea nitrogen [Mass/Vol] 32.0 mg/dL Critically high 7.0-18.0 [facility] Comment on above: Performed By: #### H STROPN #### [facility] Laboratory [address] [address] [address] Sherry Sanches Urea nitrogen/Creatinine [Mass ratio] 15.7 mg/mg Normal [facility] Comment on above: Performed By: #### H STROPN #### [facility] Laboratory [address] [address] [address] Sherry Sanches Anion gap [Moles/Vol] 10.7 mmol/L Normal [facility] Comment on above: Performed By: #### B MP, BNP ####[facility] [address]bcgr[address] [place] [id number] Sanches Calcium [Mass/Vol] 8.3 mg/dL Critically low 8.5-10.1 [facility] Comment on above: Performed By: #### B MP, BNP ####[facility] [address]ih[address] [place] [phone]. Sherry Sanches CO2 [Moles/Vol] 29.5 mmol/L Normal 21.0-32.0 [facility] Comment on above: Performed By: #### B MP, BNP ####[facility] [address]aqwqbeuta[address] [place] [phone]. Sherry Sanches Creatinine [Mass/Vol] 2.20 mg/dL Critically high 0.55-1.02 [facility] Comment on above: Performed By: #### B MP, BNP ####[facility] [address]fzscqe[address] [place] [id number] Sanches EGFR-AF YEMENI 27 mL/min/1.73m2 Critically low >=60 [facility] Comment on above: Performed By: #### B MP, BNP ####[facility] [address] [place] [address]DrBita Sanches EGFR-NON AF YEMENI 22 mL/min/1.73m2 Critically low >=60 [facility] Comment on above: Performed By: #### B MP, BNP ####[facility] [address]yfaton[address] [place] [address]Dr. Sherry Sanches Glucose [Mass/Vol] 98 mg/dL Normal 74-106 [facility] Comment on above: Performed By: #### B MP, BNP ####[facility] [address] [place], [place] [address]DrBita Sanches Potassium [Moles/Vol] 3.2 mmol/L Critically low 3.5-5.1 [facility] Comment on above: Performed By: #### B MP, BNP ####[facility] [address] [place], [place] [address]Dr. Sherry Sanches Urea nitrogen [Mass/Vol] 33.0 mg/dL Critically high 7.0-18.0 [facility] Comment on above: Performed By: #### B MP, BNP ####[facility] [address]inq[address] [place], [place] [address]DrBita Sanches Urea nitrogen/Creatinine [Mass ratio] 15.0 mg/mg Normal [facility] Comment on above: Performed By: #### B MP, BNP ####[facility] Y[address] [place], [place] [address]Dr. Sherry Sanches BNPon 02-14-2022 Natriuretic peptide B (Bld) [Mass/Vol] 1291.0 pg/mL Critically high <=900.0 [facility] Comment on above: Performed By: #### C VDAGS #### [facility] [address] [place] [address] Dr. Sherry Sanches CBC AUTO DIFFon 02-14-2022 BASO # 0.0 103/ul Normal 0.0-0.1 [facility] Comment on above: Performed By: #### T SH #### [facility] [address] [address] [address] Sherry Sanches Basophils/100 WBC (Bld) 0.5 % Normal 0.2-2.0 [facility] Comment on above: Performed By: #### T SH #### [facility] [address] [address] [address] Sherry Sanches EO # 0.3 103/ul Normal 0.0-0.7 [facility] Comment on above: Performed By: #### T SH #### [facility] [address] [place] [address] Dr. Sherry Sanches Eosinophils/100 WBC (Bld) 4.5 % Normal 0.9-7.0 [facility] Comment on above: Performed By: #### T SH #### [facility] Laboratory [address] [place] [address] Dr. Sherry Sanches Erythrocyte distribution width (RBC) [Ratio] 13.2 % Normal 11.0-15.0 [facility] Comment on above: Performed By: #### T SH #### [facility] [address] [place] [address] Dr. Sherry Sanches Hematocrit (Bld) [Volume fraction] 31.1 % Critically low 36.0-48.0 [facility] Comment on above: Performed By: #### T SH #### [facility] [address] [place] [address] Dr. Sherry Sanches Hemoglobin (Bld) [Mass/Vol] 10.1 g/dL Critically low 12.0-16.0 [facility] Comment on above: Performed By: #### T SH #### [facility] [address] [place] [address] Dr. Sherry Sanches IG # 0.03 10e3/ul Normal 0.00-0.03 [facility] Comment on above: Performed By: #### T SH #### [facility] [address] [place] [address] Dr. Sherry Sanches IG % 0.5 % Normal 0.0-0.5 [facility] Comment on above: Performed By: #### T SH #### [facility] Laboratory [address] [address] [address] Sherry Sanches LYMPH # 0.8 103/ul Critically low 1.2-3.8 [facility] Comment on above: Performed By: #### T SH #### [facility] [address] [place] [address] Dr. Sherry Sanches Lymphocytes/100 WBC (Bld) 13.1 % Critically low 20.5-60.0 [facility] Comment on above: Performed By: #### T SH #### [facility] [address] [place] [address] Dr. Sherry Sanches MANUAL DIFF REQ NO Normal [facility] Comment on above: Performed By: #### T SH #### [facility] [address] [place] [address] Dr. Sherry Sanches MCH (RBC) [Entitic mass] 30.1 pg Normal 26.7-34.0 [facility] Comment on above: Performed By: #### T SH #### [facility] [address] [place] [address] Dr. Sherry Sanches MCHC (RBC) [Mass/Vol] 32.5 g/dL Normal 29.9-35.2 [facility] Comment on above: Performed By: #### T SH #### [facility] [address] [place] [address] Dr. Sherry Sanches MCV (RBC) [Entitic vol] 92.8 fL Normal 81.0-99.0 [facility] Comment on above: Performed By: #### T SH #### [facility] [address] [place] [address] Dr. Sherry Sanches MONO # 0.9 103/ul Critically high 0.3-0.8 [facility] Comment on above: Performed By: #### T SH #### [facility] [address] [place] [address] Dr. Sherry Sanches Monocytes/100 WBC (Bld) 14.4 % Critically high 1.7-12.0 [facility] Comment on above: Performed By: #### T SH #### [facility] [address] [address] [address] Sherry Sanches NEUT # 4.2 103/ul Normal 1.4-6.5 [facility] Comment on above: Performed By: #### T SH #### [facility] [address] [address] [address] Sherry Sanches Neutrophils/100 WBC (Bld) 67.0 % Normal 43.0-75.0 [facility] Comment on above: Performed By: #### T SH #### [facility] [address] [address] [address] Sherry Sanches Platelet mean volume (Bld) [Entitic vol] 9.2 fL Critically low 9.5-13.5 [facility] Comment on above: Performed By: #### T SH #### [facility] [address] [place] [address] Dr. Sherry Sanches PLT 239 103/ul Normal 150-450 [facility] Comment on above: Performed By: #### T SH #### [facility] [address] [address] [address] Sherry Sanches RBC 3.35 106/ul Critically low 4.20-5.40 [facility] Comment on above: Performed By: #### T SH #### [facility] [address] [address] [address] Sherry Sanches WBC 6.3 103/ul Normal 4.0-11.0 [facility] Comment on above: Performed By: #### T SH #### [facility] [address] [place] [address] Dr. Sherry Sanches ECHOCARDIO M/2D COMPLETEon 1 ECHOCARDIO M/2D COMPLETE Patient: DIANN LINDER Exam Date: 02/14/2022 : 1950 Gender:F Ordering : DR KAYLA ARELLANO . Admission #: [id number] Family : DR FER MCKENNA . Order #: [id number] CLICK HERE TO VIEW EXAM ECHOCARDIOGRAM REPORT [...] Tobias M.D. on 02/18/2022 at 08:20 Normal [facility] PROF CHEM 8 (BAS METB)on Anion gap [Moles/Vol] 10.2 mmol/L Normal [facility] Comment on above: Performed By: #### H STROPN #### [facility] [address] [place] [address] Dr. Sherry Sanches Calcium [Mass/Vol] 8.4 mg/dL Critically low 8.5-10.1 [facility] Comment on above: Performed By: #### H STROPN #### [facility] [address] [place] [address] Dr. Sherry Sanches Chloride [Moles/Vol] 101 mmol/L Normal 98-107 [facility] Comment on above: Performed By: #### H STROPN #### [facility] [address] [address] [address] Sherry Sanches CO2 [Moles/Vol] 28.4 mmol/L Normal 21.0-32.0 [facility] Comment on above: Performed By: #### H STROPN #### [facility] [address] [address] [address] Sherry Sanches Creatinine [Mass/Vol] 2.13 mg/dL Critically high 0.55-1.02 [facility] Comment on above: Performed By: #### H STROPN #### [facility] [address] [address] [address] Sherry Sanches EGFR-AF YEMENI 28 mL/min/1.73m2 Critically low >=60 [facility] Comment on above: Performed By: #### H STROPN #### [facility] [address] [address] [address] Sherry Sanches EGFR-NON AF YEMENI 23 mL/min/1.73m2 Critically low >=60 [facility] Comment on above: Performed By: #### H STROPN #### [facility] [address] [address] [address] Sherry Sanches Glucose [Mass/Vol] 100 mg/dL Normal 74-106 [facility] Comment on above: Performed By: #### H STROPN #### [facility] [address] [address] [address] Sherry Sanches Potassium [Moles/Vol] 3.6 mmol/L Normal 3.5-5.1 [facility] Comment on above: Performed By: #### H STROPN #### [facility] [address] [address] [address] Sherry Sanches Sodium [Moles/Vol] 136 mmol/L Normal 136-145 [facility] Comment on above: Performed By: #### H STROPN #### [facility] [address] [address] [address] Sherry Sanches Urea nitrogen [Mass/Vol] 31.0 mg/dL Critically high 7.0-18.0 [facility] Comment on above: Performed By: #### H STROPN #### [facility] [address] [address] [address] Sherry Sanches Urea nitrogen/Creatinine [Mass ratio] 14.6 mg/mg Normal [facility] Comment on above: Performed By: #### H STROPN #### [facility] [address] [address] [address] Sherry Sanches BNPon 02-13-2022 Natriuretic peptide B (Bld) [Mass/Vol] 1047.0 pg/mL Critically high <=900.0 [facility] Comment on above: Performed By: #### C BC #### [facility] Laboratory [address] [address] [address] Sherry Sanches CBC AUTO DIFFon 02-13-2022 BASO # 0.0 103/ul Normal 0.0-0.1 [facility] Comment on above: Performed By: #### C BC ####[facility] [address] [place] [address]DrBita Sanches Basophils/100 WBC (Bld) 0.4 % Normal 0.2-2.0 [facility] Comment on above: Performed By: #### C BC ####[facility] [address] [place], [place] [address]DrBita Sanches EO # 0.2 103/ul Normal 0.0-0.7 [facility] Comment on above: Performed By: #### C BC ####[facility] [address]pddecg[address] [place] [address]Dr. Sherry Sanches Eosinophils/100 WBC (Bld) 2.9 % Normal 0.9-7.0 [facility] Comment on above: Performed By: #### C BC ####[facility] [address] [place], [place] [address]DrBita Sanches Erythrocyte distribution width (RBC) [Ratio] 13.2 % Normal 11.0-15.0 [facility] Comment on above: Performed By: #### C BC ####[facility] [address] [place], [place] [address]DrBita Sanches Hematocrit (Bld) [Volume fraction] 32.6 % Critically low 36.0-48.0 [facility] Comment on above: Performed By: #### C BC ####[facility] [address] [place], [place] [address]DrBita Sanches Hemoglobin (Bld) [Mass/Vol] 10.8 g/dL Critically low 12.0-16.0 [facility] Comment on above: Performed By: #### C BC ####[facility] [address] [place] [id number]. Sherry Sanches IG # 0.03 10e3/ul Normal 0.00-0.03 [facility] Comment on above: Performed By: #### C BC ####[facility] [address] [place] [address]Dr. Sherry Sanches IG % 0.4 % Normal 0.0-0.5 [facility] Comment on above: Performed By: #### C BC ####[facility] [address] [place] [address]DrBita Sanches LYMPH # 0.8 103/ul Critically low 1.2-3.8 [facility] Comment on above: Performed By: #### C BC ####[facility] [address]wldtoz[address] [place] [address]DrBita Sanches Lymphocytes/100 WBC (Bld) 10.4 % Critically low 20.5-60.0 [facility] Comment on above: Performed By: #### C BC ####[facility] [address]cmhjfn[address] [place] [address]DrBita Sanches MANUAL DIFF REQ NO Normal [facility] Comment on above: Performed By: #### C BC ####[facility] Ozewzapnio[address] [place] [address]Dr. Sherry Sanches MCH (RBC) [Entitic mass] 30.7 pg Normal 26.7-34.0 [facility] Comment on above: Performed By: #### C BC ####[facility] N[address]ampalwv[address] [place] [id number]. Sherry Sanches MCHC (RBC) [Mass/Vol] 33.1 g/dL Normal 29.9-35.2 [facility] Comment on above: Performed By: #### C BC ####[facility] [address] [place] [address]Dr. Sherry Sanches MCV (RBC) [Entitic vol] 92.6 fL Normal 81.0-99.0 [facility] Comment on above: Performed By: #### C BC ####[facility] [address]zebqlk[address] [place] [id number]. Sherry Sanches MONO # 1.0 103/ul Critically high 0.3-0.8 [facility] Comment on above: Performed By: #### C BC ####[facility] Zniauixpea[address] [place] [id number]. Sherry Sanches Monocytes/100 WBC (Bld) 14.2 % Critically high 1.7-12.0 [facility] Comment on above: Performed By: #### C BC ####[facility] Y[address]mkspshr[address] [place] [id number]. Sherry aSnches NEUT # 5.3 103/ul Normal 1.4-6.5 [facility] Comment on above: Performed By: #### C BC ####[facility] [address]yl[address] [place] [address]Dr. Sherry Sanches Neutrophils/100 WBC (Bld) 71.7 % Normal 43.0-75.0 [facility] Comment on above: Performed By: #### C BC ####[facility] [address]szsrunilr[address] [place] [id number]. Sherry Sanches Platelet mean volume (Bld) [Entitic vol] 9.3 fL Critically low 9.5-13.5 [facility] Comment on above: Performed By: #### C BC ####[facility] [address] [place] [id number]. Sherry Sanches PLT 245 103/ul Normal 150-450 [facility] Comment on above: Performed By: #### C BC ####[facility] Ieikfevevk[address] [place] [id number]. Sherry Sanches RBC 3.52 106/ul Critically low 4.20-5.40 [facility] Comment on above: Performed By: #### C BC ####[facility] Ckxvfbkiin[address] [place] [id number]. Sherry Sanches WBC 7.3 103/ul Normal 4.0-11.0 [facility] Comment on above: Performed By: #### C BC ####[facility] [address] [place], [place] [address]GhDr. Sherry Sanches [facility]on SARS-CoV-2 (COVID-19) RNA GABE+probe Ql (Unsp spec) Not detected Normal NOT DETECTED [facility] Comment on above: Result Comment: [...] for this test is supported by the [employer] Director of Health and Human Service's declaration that [...] used). Performed By: #### H STROPN #### [facility] Laboratory [address] [place] [address] Dr. Sherry Sanches LIPASEon 02-13-2022 Lipase [Catalytic activity/Vol] 84.0 U/L Normal 73.0-393.0 [facility] Comment on above: Performed By: #### C BC #### [facility] Laboratory [address] [address] [address] Sherry Sanches PROF 14(COMP METB)on 022 Albumin [Mass/Vol] 3.7 g/dL Normal 3.4-5.0 [facility] Comment on above: Performed By: #### C BC #### [facility] [address] [place] [address] Dr. Sherry Sanches Albumin/Globulin [Mass ratio] 0.9 {ratio} Normal [facility] Comment on above: Performed By: #### C BC #### [facility] [address] [place] [address] Dr. Sherry Sanches ALP [Catalytic activity/Vol] 103 U/L Normal 46-116 [facility] Comment on above: Performed By: #### C BC #### [facility] [address] [place] [address] Dr. Sherry Sanches ALT [Catalytic activity/Vol] 15 U/L Normal 14-59 [facility] Comment on above: Performed By: #### C BC #### [facility] [address] [place] [address] Dr. Sherry Sanches Anion gap [Moles/Vol] 12.0 mmol/L Normal [facility] Comment on above: Performed By: #### C BC #### [facility] [address] [place] [address] Dr. Sherry Sanches AST [Catalytic activity/Vol] 18 U/L Normal 15-37 [facility] Comment on above: Performed By: #### C BC #### [facility] [address] [place] [address] Dr. Sherry Sanches Bilirubin [Mass/Vol] 0.9 mg/dL Normal 0.2-1.0 [facility] Comment on above: Performed By: #### C BC #### [facility] [address] [place] [address] Dr. Sherry Sanches Calcium [Mass/Vol] 8.9 mg/dL Normal 8.5-10.1 [facility] Comment on above: Performed By: #### C BC #### [facility] [address] [place] [address] Dr. Sherry Sanches Chloride [Moles/Vol] 98 mmol/L Normal 98-107 [facility] Comment on above: Performed By: #### C BC #### [facility] [address] [place] [address] Dr. Sherry Sanches CO2 [Moles/Vol] 27.6 mmol/L Normal 21.0-32.0 [facility] Comment on above: Performed By: #### C BC #### [facility] [address] [place] [address] Dr. Sherry Sanches Creatinine [Mass/Vol] 2.22 mg/dL Critically high 0.55-1.02 [facility] Comment on above: Performed By: #### C BC #### [facility] [address] [address] [address] Sherry Sanches EGFR-AF YEMENI 26 mL/min/1.73m2 Critically low >=60 [facility] Comment on above: Performed By: #### C BC #### [facility] [address] [address] [address] Sherry Sanches EGFR-NON AF YEMENI 22 mL/min/1.73m2 Critically low >=60 [facility] Comment on above: Performed By: #### C BC #### [facility] [address] [place] [address] Dr. Sherry Sanches Globulin (S) [Mass/Vol] 3.9 g/dL Normal [facility] Comment on above: Performed By: #### C BC #### [facility] [address] [place] [address] Dr. Sherry Sanches Glucose [Mass/Vol] 116 mg/dL Critically high 74-106 [facility] Comment on above: Performed By: #### C BC #### [facility] [address] [place] [address] Dr. Sherry Sanches Potassium [Moles/Vol] 3.6 mmol/L Normal 3.5-5.1 [facility] Comment on above: Performed By: #### C BC #### [facility] [address] [place] [address] Dr. Sherry Sanches Protein [Mass/Vol] 7.6 g/dL Normal 6.4-8.2 [facility] Comment on above: Performed By: #### C BC #### [facility] [address] [place] [address] Dr. Sherry Sanches Sodium [Moles/Vol] 134 mmol/L Critically low 136-145 [facility] Comment on above: Performed By: #### C BC #### [facility] [address] [place] [address] Dr. Sherry Sanches Urea nitrogen [Mass/Vol] 32.0 mg/dL Critically high 7.0-18.0 [facility] Comment on above: Performed By: #### C BC #### [facility] [address] [place] [address] Dr. Sherry Sanches Urea nitrogen/Creatinine [Mass ratio] 14.4 mg/mg Normal [facility] Comment on above: Performed By: #### C BC #### [facility] [address] [place] [address] Dr. Sherry Sanches PROTIMEon 02-13-2022 INR Coag (PPP) [Relative time] 1.02 {INR} Normal [facility] Comment on above: Performed By: #### C VDAGS #### [facility] [address] [place] [address] Dr. Sherry Sanches INR GUIDELINES SEE BELOW Normal [facility] Comment on above: Result Comment: SARAH RED INR: 2.0 - 3.0 CONDITIONS NOT LISTED BELOW 2.5 - 3.5 FOR PROSTHETIC HEART VALVE REPLACEMENT 2.5 - 3.5 RECURRENT THROMBOSIS Performed By: #### C VDAGS #### [facility] [address] [place] [address] Dr. Sherry Sanches PT Coag (PPP) [Time] 11.0 s Normal 9.0-11.6 [facility] Comment on above: Performed By: #### C VDAGS #### [facility] [address] [place] [address] Dr. Sherry Sanches PTTon 02-13-2022 aPTT Coag (Bld) [Time] 28.0 s Normal 22.3-36.2 [facility] Comment on above: Performed By: #### C VDAGS #### [facility] [address] [place] [address] Dr. Sherry Sanches TROPONIN, HIGH SENSITIVITYon 02-13-2022 HSTROP 7.4 pg/mL Normal 4.0-51.3 [facility] Comment on above: Result Comment: CUT- OFF POINTS HAVE BEEN ESTABLISHED BASED ON THE FOURTH UNIVERSAL DEFINITIONS OF MYOCARDIAL INFARCTION. THE UPPER REFERENCE LIMIT (URL) OF TROPONIN, DEFINED THE 99TH PERCENTILE OF cTnI DISTRIBUTION IN A REFERENCE POPULATION, HAS BEEN CONFIRMED THE DECISION THRESHOLD FOR ME DIAGNOSIS. Performed By: #### H STROPN ####[facility] [id number] [place], [place] [address]EcDr. Sherry Sanches HSTROP 6.3 pg/mL Normal 4.0-51.3 [facility] Comment on above: Result Comment: CUT- OFF POINTS HAVE BEEN ESTABLISHED BASED ON THE FOURTH UNIVERSAL DEFINITIONS OF MYOCARDIAL INFARCTION. THE UPPER REFERENCE LIMIT (URL) OF TROPONIN, DEFINED THE 99TH PERCENTILE OF cTnI DISTRIBUTION IN A REFERENCE POPULATION, HAS BEEN CONFIRMED THE DECISION THRESHOLD FOR ME DIAGNOSIS. Performed By: #### H STROPN #### [facility] [address] [place], [place] [address] Dr. Sherry Sanches HSTROP 6.3 pg/mL Normal 4.0-51.3 [facility] Comment on above: Result Comment: CUT- OFF POINTS HAVE BEEN ESTABLISHED BASED ON THE FOURTH UNIVERSAL DEFINITIONS OF MYOCARDIAL INFARCTION. THE UPPER REFERENCE LIMIT (URL) OF TROPONIN, DEFINED THE 99TH PERCENTILE OF cTnI DISTRIBUTION IN A REFERENCE POPULATION, HAS BEEN CONFIRMED THE DECISION THRESHOLD FOR ME DIAGNOSIS. Performed By: #### C BC #### [facility] [address] [place], [place] [address] Dr. Sherry Sanches XR CHEST 1 Von [...] ANA MILLS Date: 2022-02-13 18:33 Normal [facility] CREATININEon 01-10-2022 Creatinine [Mass/Vol] 1.05 mg/dL Critically high 0.55-1.02 [facility] Comment on above: Performed By: #### T SH #### [facility] [address] [place], [place] [address] Dr. Sherry Sanches EGFR-AF YEMENI >60 Normal >=60 [facility] Comment on above: Performed By: #### T SH #### [facility] [address] [address] [address] Sherry Sanches EGFR-NON AF YEMENI 52 mL/min/1.73m2 Critically low >=60 [facility] Comment on above: Performed By: #### T #### [facility] [address] [place], [place] [address] ABD/PELV WO W [...] LONNIE MCCORMACK Date: 2022-01-10 14:05 Normal [facility] XR KUB 1 VIEWon 01-07-2022 [...] HOWARD POST Date: 2022-01-07 15:17 Normal [facility] CBC AUTO DIFFon 12-17-2021 BASO # 0.0 103/ul Normal 0.0-0.1 [facility] Comment on above: Performed By: #### T SH #### [facility] [address] [address] [address] Sherry Sanches Basophils/100 WBC (Bld) 0.7 % Normal 0.2-2.0 [facility] Comment on above: Performed By: #### T SH #### [facility] [address] [address] [address] Sherry Sanches EO # 0.2 103/ul Normal 0.0-0.7 [facility] Comment on above: Performed By: #### T SH #### [facility] [address] [address] [address] Sherry Sanches Eosinophils/100 WBC (Bld) 5.5 % Normal 0.9-7.0 [facility] Comment on above: Performed By: #### T SH #### [facility] [address] [address] [address] Sherry Sanches Erythrocyte distribution width (RBC) [Ratio] 16.5 % Critically high 11.0-15.0 [facility] Comment on above: Performed By: #### T SH #### [facility] [address] [place] [address] Dr. Sherry Sanches Hematocrit (Bld) [Volume fraction] 37.7 % Normal 36.0-48.0 [facility] Comment on above: Performed By: #### T SH #### [facility] [address] [address] [address] Sherry Sanches Hemoglobin (Bld) [Mass/Vol] 12.0 g/dL Normal 12.0-16.0 [facility] Comment on above: Performed By: #### T SH #### [facility] [address] [address] [address] Sherry Sanches IG # 0.01 10e3/ul Normal 0.00-0.03 [facility] Comment on above: Performed By: #### T SH #### [facility] [address] [place] [address] Dr. Sherry Sanches IG % 0.2 % Normal 0.0-0.5 [facility] Comment on above: Performed By: #### T SH #### [facility] [address] [place] [address] Dr. Sherry Sanches LYMPH # 0.9 103/ul Critically low 1.2-3.8 [facility] Comment on above: Performed By: #### T SH #### [facility] [address] [place] [address] Dr. Sherry Sanches Lymphocytes/100 WBC (Bld) 21.3 % Normal 20.5-60.0 [facility] Comment on above: Performed By: #### T SH #### [facility] [address] [place] [address] Dr. Sherry Sanches MANUAL DIFF REQ NO Normal [facility] Comment on above: Performed By: #### T SH #### [facility] [address] [place] [address] Dr. Sherry Sanches MCH (RBC) [Entitic mass] 29.0 pg Normal 26.7-34.0 [facility] Comment on above: Performed By: #### T SH #### [facility] [address] [place] [address] Dr. Sherry Sanches MCHC (RBC) [Mass/Vol] 31.8 g/dL Normal 29.9-35.2 [facility] Comment on above: Performed By: #### T SH #### [facility] [address] [address] [address] Sherry Sanches MCV (RBC) [Entitic vol] 91.1 fL Normal 81.0-99.0 [facility] Comment on above: Performed By: #### T SH #### [facility] [address] [address] [address] Sherry Sanches MONO # 0.6 103/ul Normal 0.3-0.8 [facility] Comment on above: Performed By: #### T SH #### [facility] [address] [place] [address] Dr. Sherry Sanches Monocytes/100 WBC (Bld) 15.4 % Critically high 1.7-12.0 [facility] Comment on above: Performed By: #### T SH #### [facility] [address] [place] [address] Dr. Sherry Sanches NEUT # 2.3 103/ul Normal 1.4-6.5 [facility] Comment on above: Performed By: #### T SH #### [facility] [address] [place] [address] Dr. Sherry Sanches Neutrophils/100 WBC (Bld) 56.9 % Normal 43.0-75.0 [facility] Comment on above: Performed By: #### T SH #### [facility] [address] [place] [address] Dr. Sherry Sanches Platelet mean volume (Bld) [Entitic vol] 9.2 fL Critically low 9.5-13.5 [facility] Comment on above: Performed By: #### T SH #### [facility] [address] [place] [address] Dr. Sherry Sanches PLT 208 103/ul Normal 150-450 [facility] Comment on above: Performed By: #### T SH #### [facility] [address] [place] [address] Dr. Sherry Sanches RBC 4.14 106/ul Critically low 4.20-5.40 [facility] Comment on above: Performed By: #### T SH #### [facility] [address] [address] [address] Sherry Sanches WBC 4.0 103/ul Normal 4.0-11.0 [facility] Comment on above: Performed By: #### T SH #### [facility] [address] [address] [address] Sherry Sanches IRONon 12-17-2021 Iron [Mass/Vol] 61.0 ug/dL Normal 50.0-170.0 [facility] Comment on above: Performed By: #### H STROPN #### [facility] [address] [address] [address] Sherry Sanches CHEMISTRYOrdered By: SYSTEM SYSTEM [...] 10 - 20 [facility] Remisol COAGULATIONOrdered By: Kritsine Cabrera on 10-31-2021 aPTT Coag (PPP) [Time] 30.2 s Normal 25.1 - 36.5 second(s) [facility] Auto Coag INR Coag (PPP) [Relative time] 1.1 {INR} Invalid Interpretation Code [facility] Auto Coag PT Coag (PPP) [Time] 13.0 s High 10.2 - 12.9 second(s) [facility] Auto Coag HEMATOLOGYOrdered By: Margareth duncan on 10-31-2021 Anisocytosis Ql (Bld) Present (10/31/21 5:56 PM) Normal [facility] HemeManSS Erythrocyte distribution width (RBC) [Ratio] 22.8 [...] [Interp] See Morphology (10/31/21 5:56 PM) Normal [facility] HemeManSS Platelet mean volume (Bld) [Entitic vol] [...] PM) Normal Negative [facility] UA Auto SS [place].plasma/Lithiu m.RBC (Bld) [Mass ratio] 4-20 /HPF Normal [...] [facility] UA Auto SS Urobilinogen Qn (U) [id number] {Ellen'U}/dL Normal 0.0 - 1.0 EU/dL [facility] UA Auto SS WBC Auto Ql (U) Trace *ABN* (10/31/21 5:56 PM) Invalid Interpretation Code Negative [facility] UA Auto SS WBC LM.HPF (Urine sed) [#/Area] /[HPF] Invalid Interpretation Code 0-5/HPF [facility] UA Auto SS CBC AUTO DIFFon 10-25-2021 BASO # 0.0 103/ul Normal 0.0-0.1 [facility] Comment on above: Performed By: #### T SH #### [facility] [address] [address] [address] Sherry Sanches Basophils/100 WBC (Bld) 0.1 % Critically low 0.2-2.0 [facility] Comment on above: Performed By: #### T SH #### [facility] [address] [address] [address] Sherry Sanches EO # 0.0 103/ul Normal 0.0-0.7 [facility] Comment on above: Performed By: #### T SH #### [facility] [address] [address] [address] Sherry Sanches Eosinophils/100 WBC (Bld) 0.1 % Critically low 0.9-7.0 [facility] Comment on above: Performed By: #### T SH #### [facility] [address] [place] [address] Dr. Sherry Sanches Erythrocyte distribution width (RBC) [Ratio] 20.9 % Critically high 11.0-15.0 [facility] Comment on above: Performed By: #### T SH #### [facility] [address] [place] [address] Dr. Sherry Sanches Hematocrit (Bld) [Volume fraction] 32.1 % Critically low 36.0-48.0 [facility] Comment on above: Performed By: #### T SH #### [facility] [address] [place] [address] Dr. Sherry Sanches Hemoglobin (Bld) [Mass/Vol] 9.9 g/dL Critically low 12.0-16.0 [facility] Comment on above: Performed By: #### T SH #### [facility] [address] [place] [address] Dr. Sherry Sanches IG # 0.04 10e3/ul Critically high 0.00-0.03 [facility] Comment on above: Performed By: #### T SH #### [facility] [address] [place] [address] Dr. Sherry Sanches IG % 0.5 % Normal 0.0-0.5 [facility] Comment on above: Performed By: #### T SH #### [facility] [address] [place] [address] Dr. Sherry Sanches LYMPH # 1.1 103/ul Critically low 1.2-3.8 [facility] Comment on above: Performed By: #### T SH #### [facility] [address] [place] [address] Dr. Sherry Sanches Lymphocytes/100 WBC (Bld) 12.3 % Critically low 20.5-60.0 [facility] Comment on above: Performed By: #### T SH #### [facility] [address] [place] [address] Dr. Sherry Sanches MANUAL DIFF REQ NO Normal [facility] Comment on above: Performed By: #### T SH #### [facility] [address] [place] [address] Dr. Sherry Sanches MCH (RBC) [Entitic mass] 27.3 pg Normal 26.7-34.0 [facility] Comment on above: Performed By: #### T SH #### [facility] [address] [place] [address] Dr. Sherry Sanches MCHC (RBC) [Mass/Vol] 30.8 g/dL Normal 29.9-35.2 [facility] Comment on above: Performed By: #### T SH #### [facility] [address] [place] [address] Dr. Sherry Sanches MCV (RBC) [Entitic vol] 88.4 fL Normal 81.0-99.0 [facility] Comment on above: Performed By: #### T SH #### [facility] [address] [place] [address] Dr. Sherry Sanches MONO # 1.0 103/ul Critically high 0.3-0.8 [facility] Comment on above: Performed By: #### T SH #### [facility] [address] [place] [address] Dr. Sherry Sanches Monocytes/100 WBC (Bld) 11.6 % Normal 1.7-12.0 [facility] Comment on above: Performed By: #### T SH #### [facility] [address] [place] [address] Dr. Sherry Sanches NEUT # 6.4 103/ul Normal 1.4-6.5 [facility] Comment on above: Performed By: #### T SH #### [facility] [address] [place] [address] Dr. Sherry Sanches Neutrophils/100 WBC (Bld) 75.4 % Critically high 43.0-75.0 [facility] Comment on above: Performed By: #### T SH #### [facility] [address] [address] [address] Sherry Sanches Platelet mean volume (Bld) [Entitic vol] 9.4 fL Critically low 9.5-13.5 [facility] Comment on above: Performed By: #### T SH #### [facility] [address] [address] [address] Sherry Sanches PLT 327 103/ul Normal 150-450 [facility] Comment on above: Performed By: #### T SH #### [facility] [address] [address] [address] Sherry Sanches RBC 3.63 106/ul Critically low 4.20-5.40 [facility] Comment on above: Performed By: #### T SH #### [facility] [address] [address] [address] Sherry Sanches WBC 8.5 103/ul Normal 4.0-11.0 [facility] Comment on above: Performed By: #### T SH #### [facility] [address] [address] [address] Sherry Sanches IRONon 10-25-2021 Iron [Mass/Vol] 43.0 ug/dL Critically low 50.0-170.[address] [facility] Comment on above: Performed By: #### H STROPN #### [facility] [address] [address] [address] Sherry Sanches TSHon 10-02-2021 TSH 1.700 uIU/mL Normal 0.400-4.500 [facility] [employer] Comment on above: Performed By: #### T SH #### [facility] [address] [place] [id number] THYROGLOBULINon 09-29-2021 Thyroglobulin <2.0 Normal [facility] Comment on above: Result Comment: [...] 2.0 ng/mL. Performed By: #### T JIM ####[facility] [id number] [place], [place] [id number]. Sherry Sanches CBC AUTO DIFFon 09-24-2021 BASO # 0.0 103/ul Normal 0.0-0.1 [facility] Comment on above: Performed By: #### C BC #### [facility] [address] [address] [address] Sherry Sanches Basophils/100 WBC (Bld) 0.5 % Normal 0.2-2.0 [facility] Comment on above: Performed By: #### C BC #### [facility] [address] [address] [address] Sherry Sanches EO # 0.2 103/ul Normal 0.0-0.7 [facility] Comment on above: Performed By: #### C BC #### [facility] [address] [address] [address] Sherry Sanches Eosinophils/100 WBC (Bld) 4.2 % Normal 0.9-7.0 [facility] Comment on above: Performed By: #### C BC #### [facility] [address] [address] [address] Sherry Sanches Erythrocyte distribution width (RBC) [Ratio] 21.4 % Critically high 11.0-15.0 [facility] Comment on above: Performed By: #### C BC #### [facility] [address] [address] [address] Sherry Sanches Hematocrit (Bld) [Volume fraction] 29.8 % Critically low 36.0-48.0 [facility] Comment on above: Performed By: #### C BC #### [facility] [address] [address] [address] Sherry Sanches Hemoglobin (Bld) [Mass/Vol] 9.1 g/dL Critically low 12.0-16.0 [facility] Comment on above: Performed By: #### C BC #### [facility] [address] [place] [address] Dr. Sherry Sanches IG # 0.01 10e3/ul Normal 0.00-0.03 [facility] Comment on above: Performed By: #### C BC #### [facility] [address] [place] [address] Dr. Sherry Sanches IG % 0.3 % Normal 0.0-0.5 [facility] Comment on above: Performed By: #### C BC #### [facility] [address] [place] [address] Dr. Sherry Sanches LYMPH # 0.9 103/ul Critically low 1.2-3.8 [facility] Comment on above: Performed By: #### C BC #### [facility] [address] [place] [address] Dr. Sherry Sanches Lymphocytes/100 WBC (Bld) 24.6 % Normal 20.5-60.0 [facility] Comment on above: Performed By: #### C BC #### [facility] [address] [place] [address] Dr. Sherry Sanches MANUAL DIFF REQ NO Normal [facility] Comment on above: Performed By: #### C BC #### [facility] [address] [place] [address] Dr. Sherry Sanches MCH (RBC) [Entitic mass] 26.0 pg Critically low 26.7-34.0 [facility] Comment on above: Performed By: #### C BC #### [facility] [address] [place] [address] Dr. Sherry Sanches MCHC (RBC) [Mass/Vol] 30.5 g/dL Normal 29.9-35.2 [facility] Comment on above: Performed By: #### C BC #### [facility] [address] [place] [address] Dr. Sherry Sanches MCV (RBC) [Entitic vol] 85.1 fL Normal 81.0-99.0 [facility] Comment on above: Performed By: #### C BC #### [facility] [address] [address] [address] Sehrry Sanches MONO # 0.5 103/ul Normal 0.3-0.8 [facility] Comment on above: Performed By: #### C BC #### [facility] [address] [address] [address] Sherry Sanches Monocytes/100 WBC (Bld) 14.3 % Critically high 1.7-12.0 [facility] Comment on above: Performed By: #### C BC #### [facility] [address] [place] [address] Dr. Sherry Sanches NEUT # 2.1 103/ul Normal 1.4-6.5 [facility] Comment on above: Performed By: #### C BC #### [facility] [address] [place] [address] Dr. Sherry Sanches Neutrophils/100 WBC (Bld) 56.1 % Normal 43.0-75.0 [facility] Comment on above: Performed By: #### C BC #### [facility] [address] [place] [address] Dr. Sherry Sanches Platelet mean volume (Bld) [Entitic vol] 8.6 fL Critically low 9.5-13.5 [facility] Comment on above: Performed By: #### C BC #### [facility] [address] [place] [address] Dr. Sherry Sanches PLT 253 103/ul Normal 150-450 [facility] Comment on above: Performed By: #### C BC #### [facility] [address] [place] [address] Dr. Shrery Sanches RBC 3.50 106/ul Critically low 4.20-5.40 [facility] Comment on above: Performed By: #### C BC #### [facility] [address] [place] [address] Dr. Sherry Sanches WBC 3.8 103/ul Critically low 4.0-11.0 [facility] Comment on above: Performed By: #### C BC #### [facility] [address] [place], [place] [id number] Dr. Sherry Sanches IRONon 09-24-2021 Iron [Mass/Vol] 55.0 ug/dL Normal 50.0-170.0 [facility] Comment on above: Performed By: #### H STROPN #### [facility] [address] [address] [address] Sherry Sanches US KIDNEYSon 09-23-2021 US [...] HOWARD POST Date: 2021-09-23 14:31 Normal The [facility] US THYROIDon 09-23-2021 US THYROID [...] by: HOWARD POST Date: 2021-09-23 14:38 Normal [facility] Cardiovascular Lab Reporton 11-02-2020 Cardiovascular Lab Report [facility] Patient Name: Diann Linder [facility] MR #: [id number] Physician: Venkat Plaza [facility] Medicine Service Date: 11/02/2020 Division of Birthdate: 1950 Cardiology Room #: Adult Cardiovascular [facility] [address] [facility]. [place], [place] [address] Cardiovascular Laboratory Report INDICATION: The patient is [...] signed informed consent. She was brought to laboratory chief in a fasting state. The left wrist area was prepped and draped in usual fashion. Modified Jose's test was favorable on the left. Access in the left radial artery was obtained using micropuncture technique. A 6-Frisian x 11 cm Hydrophilic sheath was advanced. Verapamil was given through the sheath and heparin was administered intravenously. Bilateral selective coronary angiography was then performed using 6-Frisian JL4 and JR4 diagnostic catheters. Catheters were [...] Tobias M.D. Date Trans: 11/02/2020 11:18 A/kamari [id number] cc: Sanaz Lake M.D. [address] [place] [id number] Normal The [facility] SR-XR Spine Cervical 2 or 3 Views IMPORTon 06-29-2019 SR-XR Spine Cervical 2 or 3 Views IMPORT Images were obtained outside of [facility] [id number] Normal [facility] Coding Summary.on 07-30-2018 Coding Summary. CODING DATE: 07/30/2018 FINAL [facility] STATUS: Home (Routine DC) PAYOR: Medicare ADMIT DX: REASON FOR VISIT DX: M54.5 Low back pain FINAL DX: PRINCIPAL: M54.5 Low back pain SECONDARY: M25.551 Pain in right hip M25.552 Pain in left hip Z79.899 Other intermediate manager (current) drug therapy Z79.891 long term acute care registered nurse (current) use of opiate analgesic PROCEDURES DOCTOR NAME DATE NOTE: The code number assigned matches the documented diagnosis and / or procedure in the patient's chart. However, the narrative phrase printed from the coding software may appear abbreviated, or result in slightly different terminology. Coded By: Dunia Crook CphT Date Saved: 07/30/2018 01:41 pm Normal [facility] Consultation Noteon 07-31-19 19 Consultation Note HOSPITAL [...] an injection. She reports the Gabapentin and [place] have remained helpful, and she denies side [...] the primary pain generator. I reviewed an [place] [employer] [facility] report on her, which is appropriate. I also reviewed her operative note. PLAN: I addressed options with her and I am going to refill the [place] at a dose of 5/325 one tablet [...] evaluation. Chad Salas M.D. [employer] Dictated: 07/22/2018 #[id number] Typed: 07/28/2018 #[id number] cc: Lewis Lee M.D. [facility] Comment on above: Result Comment: Elec tronically Signed By: Josue SOMMERS, Chad\.br\Date and Time Signed: 07/30/18 14:32 EDT Vital Signs Date Time Vital Sign Value Performing Clinician Facility 05-21-2023 12:35-0500 Diastolic blood pressure 86 mm[Hg] Prudencio Payan [facility] 05-21-2023 12:35-0500 Heart rate 56 /min Prudencio Payan [facility] 05-21-2023 12:35-0500 Mean blood pressure 107 mm[Hg] Prudencio Payan [facility] 05-21-2023 12:35-0500 Respiratory rate 18 /min Prudencio Payan [facility] 05-21-2023 12:35-0500 Systolic blood pressure 150 mm[Hg] Prudencio Payan [facility] 01-21-2023 10:53-0400 Heart rate 48 /min Prudencio Payan [facility] 01-21-2023 10:53-0400 SaO2% (BldA) [Mass fraction] 95 % Prudencio Payan [facility] 01-21-2023 10:53-0400 Diastolic blood pressure 77 mm[Hg] Prudencio Payan [facility] 01-21-2023 10:53-0400 Mean blood pressure 91 mm[Hg] Prudencio Payan [facility] 01-21-2023 10:53-0400 Systolic blood pressure 118 mm[Hg] Prudencio Payan [facility] 01-21-2023 10:53-0400 Respiratory rate 16 /min Prudencio Payan [facility] 01-21-2023 10:48-0400 Diastolic blood pressure 71 mm[Hg] Prudencio Payan [facility] 01-21-2023 10:48-0400 Heart rate 51 /min Prudencio aPyan [facility] 01-21-2023 10:48-0400 SaO2% (BldA) [Mass fraction] 93 % Prudencio Payan [facility] 01-21-2023 10:48-0400 Systolic blood pressure 113 mm[Hg] Prudencio Schuyler [facility] 01-21-2023 09:51-0400 Heart rate 53 /min Flannery Schuyler [facility] 01-21-2023 09:51-0400 SaO2% (BldA) [Mass fraction] 95 % Prudencio Schuyler [facility] 01-21-2023 09:51-0400 Respiratory rate 16 /min Prudencio Payan [facility] 01-21-2023 09:47-0400 Body temperature 97.7 [degF] Prudencio Payan [facility] 01-21-2023 09:46-0400 Blood Pressure Location Prudencio Payan [facility] 01-21-2023 09:46-0400 Diastolic blood pressure 66 mm[Hg] Prudencio Payan [facility] 01-21-2023 09:46-0400 Mean blood pressure 79 mm[Hg] Prudencio Payan [facility] 01-21-2023 09:46-0400 Systolic blood pressure 104 mm[Hg] Prudencio Payan [facility] 12-26-2022 14:00-0400 Diastolic blood pressure 72 mm[Hg] [place] [email or web address] [facility] 12-26-2022 14:00-0400 Heart rate 59 /min [place] [email or web address] [facility] 12-26-2022 14:00-0400 Mean blood pressure 91 mm[Hg] [place] [email or web address] [facility] 12-26-2022 14:00-0400 Respiratory rate 14 /min [place] [email or web address] [facility] 12-26-2022 14:00-0400 Systolic blood pressure 130 mm[Hg] [place] [email or web address] [facility] 07-04-2022 14:40-0500 Diastolic blood pressure 87 mm[Hg] [place] [email or web address] [facility] 07-04-2022 14:40-0500 Heart rate 61 /min [place] [email or web address] [facility] 07-04-2022 14:40-0500 Mean blood pressure 107 mm[Hg] Indianajoyce Walsh [facility] 07-04-2022 14:40-0500 Respiratory rate 18 /min Indianajoyce Walsh [facility] 07-04-2022 14:40-0500 Systolic blood pressure 146 mm[Hg] Indianajoyce Walsh [facility] 06-10-2022 10:50-0500 Diastolic blood pressure 85 mm[Hg] Christ Rodriguez [facility] 06-10-2022 10:50-0500 Heart rate 72 /min Christ Rodriguez [facility] 06-10-2022 10:50-0500 Mean blood pressure 105 mm[Hg] Christ Rodriguez [facility] 06-10-2022 10:50-0500 Respiratory rate 18 /min Christ Rodriguez [facility] 06-10-2022 10:50-0500 Systolic blood pressure 146 mm[Hg] Christ Rodriguez [facility] 06-02-2022 12:49-0500 Diastolic blood pressure 74 mm[Hg] Indiana Walsh [facility] 06-02-2022 12:49-0500 Heart rate 59 /min Indianajoyce Walsh [facility] 06-02-2022 12:49-0500 Mean blood pressure 91 mm[Hg] Indianajoyce Walsh [facility] 06-02-2022 12:49-0500 Respiratory rate 18 /min Indianajoyce Walsh [facility] 06-02-2022 12:49-0500 Systolic blood pressure 126 mm[Hg] Indianajoyce Walsh [facility] 04-30-2022 08:56-0500 Heart rate 56 /min Chad Zumbar [facility] 04-30-2022 08:56-0500 SaO2% (BldA) [Mass fraction] 94 % Chad Zumbar [facility] 04-30-2022 08:56-0500 Diastolic blood pressure 70 mm[Hg] Chad Zumbar [facility] 04-30-2022 08:56-0500 Mean blood pressure 87 mm[Hg] Chad Zumbar [facility] 04-30-2022 08:56-0500 Systolic blood pressure 119 mm[Hg] Chad Zumbar [facility] 04-30-2022 08:56-0500 Respiratory rate 16 /min Chad Zumbar [facility] 04-30-2022 08:50-0500 Diastolic blood pressure 72 mm[Hg] Chad Zumbar [facility] 04-30-2022 08:50-0500 Heart rate 58 /min Chad Zumbar [facility] 04-30-2022 08:50-0500 Respiratory rate 16 /min Chad Zumbar [facility] 04-30-2022 08:50-0500 SaO2% (BldA) [Mass fraction] 93 % Chad Zumbar [facility] 04-30-2022 08:50-0500 Systolic blood pressure 114 mm[Hg] Chad Zumbar [facility] 04-30-2022 08:14-0500 Diastolic blood pressure 56 mm[Hg] Chad Zumbar [facility] 04-30-2022 08:14-0500 Heart rate 57 /min Chad Zumbar [facility] 04-30-2022 08:14-0500 Mean blood pressure 77 mm[Hg] Chad Zumbar [facility] 04-30-2022 08:14-0500 Systolic blood pressure 120 mm[Hg] Chad Zumbar [facility] 04-30-2022 08:13-0500 Respiratory rate 14 /min Chad Zumbar [facility] 04-30-2022 08:13-0500 SaO2% (BldA) [Mass fraction] 94 % Chad Zumbar [facility] 04-30-2022 08:12-0500 Body temperature 97.52 [degF] Chad Zumbar [facility] 03-27-2022 15:35-0500 Diastolic blood pressure 61 mm[Hg] Chad Zumbar [facility] 03-27-2022 15:35-0500 Heart rate 58 /min Chad Zumbar [facility] 03-27-2022 15:35-0500 Mean blood pressure 83 mm[Hg] Chad Zumbar [facility] 03-27-2022 15:35-0500 Respiratory rate 16 /min Chad Zumbar [facility] 03-27-2022 15:35-0500 Systolic blood pressure 127 mm[Hg] Chad Zumbar [facility] 01-23-2022 13:01-0400 Diastolic blood pressure 91 mm[Hg] Chad Zumbar [facility] 01-23-2022 13:01-0400 Diastolic blood pressure 84 mm[Hg] Chad Zumbar [facility] 01-23-2022 13:01-0400 Heart rate 91 /min Chad Zumbar [facility] 01-23-2022 13:01-0400 Heart rate 61 /min Chad Zumbar [facility] 01-23-2022 13:01-0400 Mean blood pressure 103 mm[Hg] Chad Zumbar [facility] 01-23-2022 13:01-0400 Respiratory rate 14 /min Chad Zumbar [facility] 01-23-2022 13:01-0400 Respiratory rate 16 /min Chad Zumbar [facility] 01-23-2022 13:01-0400 Systolic blood pressure 151 mm[Hg] Chad Zumbar [facility] 01-23-2022 13:01-0400 Systolic blood pressure 142 mm[Hg] Chad Zumbar [facility] 01-08-2022 14:47-0400 Respiratory rate 16 /min XUAN STALLWORTH [facility] 11-26-2021 15:00-0400 Body height 158.75 cm Angela Rodriguez Other [employer] Other 11-26-2021 15:00-0400 Body mass index (BMI) [Ratio] 38.51 kg/m2 Angela Rodriguez Other [employer] Other 11-26-2021 15:00-0400 Body temperature 101 [degF] Angela Rodriguez Other [employer] Other 11-26-2021 15:00-0400 Body weight 97.07 kg Angela Rodriguez Other [facility] Other 11-26-2021 15:00-0400 SaO2% (BldA) [Mass fraction] 91 % Angela Rodriguez Other [facility] [employer] Other 11-21-2021 15:30-0400 Diastolic blood pressure 88 mm[Hg] Chad Zumbar [facility] 11-21-2021 15:30-0400 Heart rate 60 /min Chad Zumbar [facility] 11-21-2021 15:30-0400 Mean blood pressure 113 mm[Hg] Chad Zumbar [facility] 11-21-2021 15:30-0400 Respiratory rate 16 /min Chad Zumbar [facility] 11-21-2021 15:30-0400 Systolic blood pressure 162 mm[Hg] Chad Zumbar [facility] 11-07-2021 12:00-0400 Diastolic blood pressure 80 mm[Hg] Susie Guzmán Jr. [facility] 11-07-2021 12:00-0400 Heart rate 56 /min Susie Guzmán Jr. [facility] 11-07-2021 12:00-0400 Respiratory rate 18 /min Susie Guzmán Jr. [facility] 11-07-2021 12:00-0400 SaO2% (BldA) [Mass fraction] 96 % Susie Guzmán Jr. [facility] 11-07-2021 12:00-0400 Systolic blood pressure 175 mm[Hg] Susie Guzmán Jr. [facility] 11-07-2021 11:13-0400 Blood Pressure Location Susie Guzmán Jr. [facility] 11-07-2021 11:13-0400 Body temperature 97.52 [degF] Susie Guzmán Jr. [facility] 11-07-2021 11:13-0400 Diastolic blood pressure 90 mm[Hg] Susie Guzmán Jr. [facility] 11-07-2021 11:13-0400 Heart rate 59 /min Susie Guzmán Jr. [facility] 11-07-2021 11:13-0400 Mean blood pressure 120 mm[Hg] Susie Guzmán Jr. [facility] 11-07-2021 11:13-0400 Respiratory rate 20 /min Susie Guzmán Jr. [facility] 11-07-2021 11:13-0400 SaO2% (BldA) [Mass fraction] 97 % Susie Guzmán Jr. [facility] 11-07-2021 11:13-0400 Systolic blood pressure 181 mm[Hg] Susie Guzmán Jr. [facility] 11-07-2021 11:05-0400 Body temperature 96.8 [degF] Susie Guzmán Jr. [facility] 11-07-2021 11:05-0400 Diastolic blood pressure 93 mm[Hg] Susie Guzmán Jr. [facility] 11-07-2021 11:05-0400 Heart rate 61 /min Susie Guzmán Jr. [facility] 11-07-2021 11:05-0400 Respiratory rate 22 /min Susie Guzmán Jr. [facility] 11-07-2021 11:05-0400 SaO2% (BldA) [Mass fraction] 97 % Susie Guzmán Jr. [facility] 11-07-2021 11:05-0400 Systolic blood pressure 177 mm[Hg] Susie Guzmán Jr. [facility] 11-07-2021 10:50-0400 Respiratory rate 19 /min Susie Guzmán Jr. [facility] 11-07-2021 10:45-0400 Respiratory rate 15 /min Susie Guzmán Jr. [facility] 11-07-2021 10:38-0400 Body temperature 96.8 [degF] Susie Guzmán Jr. [facility] 11-07-2021 08:04-0400 Mean blood pressure 119 mm[Hg] Susie Guzmán Jr. [facility] 11-07-2021 07:54-0400 Mean blood pressure 108 mm[Hg] Susie Guzmán Jr. [facility] 11-07-2021 07:53-0400 Body temperature 98.06 [degF] Susie Guzmán Jr. [facility] 11-07-2021 07:53-0400 Respiratory rate 20 /min Susie Guzmán Jr. [facility] 11-07-2021 07:53-0400 Heart rate 66 /min Susie Guzmán Jr. [facility] 10-23-2021 13:46-0400 Diastolic blood pressure 94 mm[Hg] Chad Salas [facility] 10-23-2021 13:46-0400 Heart rate 57 /min Chad Zumbar [facility] 10-23-2021 13:46-0400 Mean blood pressure 122 mm[Hg] Chad Zumbar [facility] 10-23-2021 13:46-0400 SaO2% (BldA) [Mass fraction] 95 % Chad Zumbar [facility] 10-23-2021 13:46-0400 Systolic blood pressure 179 mm[Hg] Chad Zumbar [facility] 10-23-2021 13:46-0400 Respiratory rate 12 /min Chad Zumbar [facility] 10-23-2021 13:44-0400 Diastolic blood pressure 100 mm[Hg] Chad Zumbar [facility] 10-23-2021 13:44-0400 Systolic blood pressure 194 mm[Hg] Chad Zumbar [facility] 10-23-2021 13:36-0400 Diastolic blood pressure 106 mm[Hg] Chad Zumbar [facility] 10-23-2021 13:36-0400 Heart rate 71 /min Chad Zumbar [facility] 10-23-2021 13:36-0400 Respiratory rate 16 /min Chad Zumbar [facility] 10-23-2021 13:36-0400 SaO2% (BldA) [Mass fraction] 98 % Chad Zumbar [facility] 10-23-2021 13:36-0400 Systolic blood pressure 199 mm[Hg] Chad Zumbar [facility] 10-23-2021 12:31-0400 Body temperature 98.24 [degF] Chad Zumbar [facility] 10-23-2021 12:31-0400 Heart rate 64 /min Chad Salas [facility] 10-23-2021 12:31-0400 Mean blood pressure 111 mm[Hg] Chad Salas [facility] 10-23-2021 12:31-0400 SaO2% (BldA) [Mass fraction] 94 % Chaddavid Salas [facility] 10-23-2021 12:29-0400 Respiratory rate 14 /min Chad Salas [facility] 10-22-2021 11:05-0400 Blood Pressure Location Susie Guzmán Jr. [facility] 10-22-2021 11:05-0400 Diastolic blood pressure 70 mm[Hg] Susie Guzmán Jr. [facility] 10-22-2021 11:05-0400 Heart rate 68 /min Susie Guzámn Jr. [facility] 10-22-2021 11:05-0400 Systolic blood pressure 124 mm[Hg] Susie Guzmán Jr. [facility] 09-25-2021 14:30-0400 Body height 158.75 cm Lonnie Vuong Other [employer] Other 09-25-2021 14:30-0400 Body mass index (BMI) [Ratio] 38.51 kg/m2 Lonnie Vuong Other [facility] Other 09-25-2021 14:30-0400 Body weight 97.07 kg Lonnie Vuong Other [facility] Other Encounters Encounter Date Encounter Type Care Provider Facility Start: 06-22-2023 End: 06-22-2023 ambulatory [facility] Start: 06-03-2023 End: 06-03-2023 ambulatory ABDI ACOSTA Not Available Start: 05-21-2023 End: 05-22-2023 ambulatory Prudencio Payan Facility:[facility] Start: 05-21-2023 End: 05-22-2023 ambulatory DO Prudencio Payan Facility:[facility] Start: 05-21-2023 End: 05-21-2023 Patient encounter procedure Prudencio Payan [facility] Start: 05-21-2023 End: 05-21-2023 Pain Management Prudencio Payan [facility] Start: 03-18-2023 End: 03-18-2023 ambulatory JULI [facility] Start: 02-12-2023 End: 02-13-2023 ambulatory DO Prudencio Payan Facility:[facility] Start: 01-21-2023 End: 01-22-2023 ambulatory Prudencio Payan Facility:[facility] Start: 01-21-2023 End: 01-21-2023 Patient encounter procedure Prudencio Payan [facility] Start: 12-26-2022 End: 12-27-2022 ambulatory Indiana Walsh Facility:[facility] Start: 12-26-2022 End: 12-26-2022 Patient encounter procedure Indiana Walsh [facility] Start: 12-26-2022 End: 12-26-2022 Pain Management Indiana Walsh [facility] Start: 09-26-2022 End: 09-27-2022 ambulatory Indiana Wlash Facility:[facility] Start: 09-16-2022 End: 09-17-2022 ambulatory Radha Angulo Facility:[facility] Eri gomez Start: 09-12-2022 End: 09-12-[address] SCOTT YORK . Facility: Start: 08-05-2022 End: 08-06-2022 ambulatory UNKNOWN PROVIDER Facility:[facility] Start: 08-05-2022 End: 08-06-2022 Office outpatient visit 15 minutes Christ Rodriguez MD Work Phone: [facility] Comment on above: Cervical spondylosis with myelopathy (Primary Dx) Start: 08-05-2022 ambulatory Indiana Walsh Facilit y:[facility] Connor Start: 08-04-2022 Letter [facility] Start: 07-30-2022 End: 07-31-2022 Orders Only Christ Rodriguez MD Work Phone: [facility] Comment on above: Cervical spondylosis with myelopathy Start: 07-04-2022 End: 07-05-2022 ambulatory Indiana Walsh Facility:[facility] Start: 07-04-2022 End: 07-04-2022 Patient encounter procedure Indiana Walsh [facility] Start: 07-04-2022 End: 07-04-2022 Pain Management Indiana Walsh [facility] Start: 06-12-2022 End: 06-12-2022 Patient encounter procedure Chad Salas [facility] Start: 06-10-2022 End: 06-10-2022 Patient encounter procedure Christ Rodriguez [facility] Start: 06-06-2022 End: 06-07-[address] ANGELY DUENAS Facility:[facility] Start: 06-02-2022 End: 06-02-2022 Patient encounter procedure Indiana Walsh [facility] Start: 06-02-2022 End: 06-02-2022 Pain Management Indiana Walsh [facility] Start: 05-20-2022 End: 05-21-[address] SANAZ LAKE . Facility:[facility] Start: 05-07-2022 End: 05-08-[address] ABDI ACOSTA Facility:[facility] Start: 04-30-2022 End: 04-30-2022 Pain Management Chad Salas [facility] Start: 04-24-2022 End: 04-25-[address] ABDI ACOSTA Facility:[facility] Start: 04-07-2022 End: 04-08-[address] SANAZ LAKE . Facility:[facility] Start: 04-01-2022 End: 04-01-2022 Patient encounter procedure Chad Peraltaumbar [facility] Start: 03-31-2022 End: 04-01-[address] VENKAT TOBIAS Facility:[facility] Start: 03-27-2022 End: 03-27-2022 Pain Management Chad Zumbar [facility] Start: 02-14-2022 End: 02-16-2022 Evaluation and management of inpatient DR FER MCKENNA . Facility:[facility] Start: 01-23-2022 End: 01-23-2022 Pain Management Chad Zumbar [facility] Start: 01-17-2022 End: 01-17-2022 Patient encounter procedure Dakotah EMERY [facility] Start: 01-16-[address] [facility] Start: 01-15-2022 End: 01-15-2022 Patient encounter procedure Savannah ChangBita Franc [facility] Start: 01-10-2022 End: 01-11-2022 ambulatory XUAN STLALWORTH Facility:[facility] Start: 01-08-2022 End: 01-08-2022 Patient encounter procedure XUAN Donaldo BASIM [facility] Start: 01-07-2022 End: 01-08-[address] SUSIE Sunshine Facility:[facility] Start: 12-17-2021 End: 12-18-[address] SANAZ LAKE . Facility:[facility] Start: 11-26-2021 End: 11-26-2021 ambulatory Angela Rodriguez Other [employer] Other Start: 11-26-2021 Office outpatient visit 15 minutes Angela Rodriguez [facility] Start: 11-21-2021 End: 11-21-2021 Patient encounter procedure Chadmynor Salas [facility] Start: 11-21-2021 End: 11-21-2021 Pain Management Chad Salas [facility] Start: 11-08-2021 End: 11-08-[address] SANAZ LAKE . Facility:[facility] Start: 11-07-2021 End: 11-07-2021 Admission to same day surgery center Susie Guzmán Jr. [facility] Start: 10-31-2021 End: 10-31-2021 Patient encounter procedure Susie Guzmán Jr. [facility] Start: 10-31-2021 End: 10-31-[address] [place] . Facility:[facility] Start: 10-30-2021 End: 10-30-2021 ambulatory Lonnie Vuong Other [place] [facility] [place] Other Start: 10-30-2021 Telephone encounter Lonnie Vuong [facility] Gastroenterology Start: 10-25-2021 End: 10-26-[address] [place] . Facility:[facility] Start: 10-23-2021 End: 10-23-2021 Pain Management Chad Zshannon [facility] Start: 10-22-2021 End: 10-22-2021 Patient encounter procedure Susie Guzmán Jr. [facility] Start: 10-10-2021 End: 10-10-[address] [place] . Facility:[facility] Start: 10-09-2021 End: 10-09-2021 ambulatory Lonnie Vuong Facility:[facility] Start: 09-25-2021 End: 09-25-2021 ambulatory Lonnie Vuong Other [facility] [employer] Other Start: 09-25-2021 Office outpatient visit 25 minutes Lonnie Vuong [facility] Gastroenterology Start: 09-24-2021 End: 09-25-[address] [place] . Facility:[facility] Start: 09-23-2021 End: 09-24-[address] [place] . Facility:[facility] Start: 11-02-2020 End: 11-03-2020 ambulatory PROVIDER UNKNOWN Facility:[facility] Procedures Date Procedure Procedure Detail [...] Cholesterol [Mass/volume] in Serum or Plasma Cholesterol [facility] Start: 08-05-2022 End: 08-05-2022 Patient encounter procedure 08/05/2022 Office Visit Orthopedics Christ Rodriguez MD [address] [place] [address] [facility] Start: 02-08-2022 Influenza vaccination Influenza Vaccine (#1) [facility] Start: 01-10-2016 Annual wellness visit Annual Wellness Visit ([id number]) [facility] Start: 2015 Pneumococcal vaccination Pneumococcal Vaccine(s) (65+ yrs) (1 - PCV) [facility] Start: 2015 Screening for osteoporosis Bone Densitometry [facility] Start: 01-31-2000 Shingles (RZV) Vaccine (1 of 2) [facility]RZV) [facility] Start: 1995 Cholesterol [Mass/volume] in Serum or Plasma [facility] Start: 1995 Screening for malignant neoplasm of colon [facility] Start: 1990 Screening for malignant neoplasm of breast Mammography [facility] Start: 01-31-1968 Hepatitis C screening Hepatitis C Antibody [facility] Start: 01-31-1968 Tetanus + diphtheria + acellular pertussis vaccine (product) Tdap Booster [facility] Start: 1950 Screening for malignant neoplasm of colon Colonoscopy [facility] Immunizations Immunization Date Immunization Notes Care Provider Fa cili 02-15-2022 influenza, high dose seasonal, preservative-free [facility] 05-15-2021 SARS-CoV-2 (COVID-19 ) mRNA BNT-162b2 vax Chad Zumbar [facility] 04-27-2021 influenza virus vacc ine, unspecified formulation Chad Zumbar [facility] 08-07-2020 SARS-CoV-2 (COVID-19 ) mRNA BNT-162b2 vax Chad Zumbar [facility] 07-16-2020 SARS-CoV-2 (COVID-19 ) mRNA BNT-162b2 vax Chad Zumbar [facility] 07-09-2020 SARS-CoV-2 (COVID-19 ) mRNA BNT-162b2 deseanx Susie Guzmán Jr. [facility] 06-11-2020 SARS-CoV-2 (COVID-19 ) mRNA BNT-162b2 chucky Guzmán Jr. [facility] 02-26-2019 influenza virus vacc ine, unspecified formulation Chad Zumbar [facility] 02-26-2019 pneumococcal polysaccharide vaccine, 23 valent Chad Zumbar [facility] 02-21-2019 influenza virus vacc ine, unspecified formulation Chad Zumbar [facility] 02-17-2018 pneumococcal polysaccharide vaccine, 23 valent Chad Zumbar [facility] 02-09-2018 influenza virus vacc ine, unspecified formulation Chad Zumbar [facility] 02-09-2018 pneumococcal conjuga te vaccine, 13 valent Chad Zumbar [facility] 02-08-2017 influenza virus vacc ine, unspecified formulation Chad Zumbar [facility] 03-12-2015 influenza virus vacc ine, unspecified formulation Chad Zumbar [facility] 03-23-2014 influenza virus vacc ine, unspecified formulation Chad Zumbar [facility] 03-10-2003 pneumococcal polysaccharide vaccine, 23 valent Chad Zumbar [facility] Payers Date Payer Category Payer Medicare MEDICARE - RAILR OAD MEDICARE RAILROAD DETENTION [id number] 2015-Present [address] [address] [place] [address] Medicare [id number] 2015 Unknown [id number] 1959 Medicare [id number] 1959 Self-pay 1959 Unknown [id number] 1950 Unknown [id number] 2.16.840.1.849259.3.579.2.647 1950 Unknown [id number] 2.16.840.1.553266.3.579.2.732 1950 Unknown [id number] 2.16.840.1.657419.3.579.2.732 1950 Unknown [id number] 2.16.840.1.885343.3.579.2.732 1950 Unknown [id number] 2.16.840.1.852157.3.579.2.73 1950 Unknown [id number] 2.16.840.1.973302.3.579.2.73 1950 Unknown [id number] 2.16.840.1.747301.3.579.2.73 1950 Unknown [id number] 2.16.840.1.261620.3.579.2.59 1950 Unknown [id number] 2.16.840.1.781260.3.579.2.59 1950 Unknown [id number] 2.16.840.1.838006.3.579.2.59 1950 Unknown [id number] 2.16.840.1.833824.3.579.2.59 1950 Unknown [id number] 2.16.840.1.767266.3.579.2.59 1950 Unknown [id number] 2.16.840.1.644226.3.579.2.593 1950 Unknown [id number] 2.16.840.1.355917.3.579.2.59 1950 Unknown [id number] 2.16.840.1.886934.3.579.2.59 1950 Unknown [id number] 2.16.840.1.273711.3.579.2.59 1950 Unknown [id number] 2.16.840.1.676609.3.579.2.593 1950 Unknown [id number] 2.16.840.1.888826.3.579.2.593 1950 Unknown [id number] 2.16.840.1.909476.3.579.2.593 1950 Unknown [id number] 2.16.840.1.324731.3.579.2.593 1950 Unknown [id number] 2.16.840.1.211527.3.579.2.593 1950 Unknown [id number] 2.16.840.1.660314.3.579.2.593 1950 Unknown [id number] 2.16.840.1.422625.3.579.2.593 1950 Unknown [id number] 2.16.840.1.266423.3.579.2.593 1950 Unknown [id number] 2.16.840.1.672976.3.579.2.593 1950 Unknown [id number] 2.16.840.1.909959.3.579.2.593 1950 Unknown [id number] 2.16.840.1.894363.3.579.2.125 9 1950 Unknown [id number] 2.16.840.1.522304.3.579.2.727 1950 Unknown [id number] 2.16.840.1.339362.3.579.2.727 1950 Unknown [id number] 2.16.840.1.872745.3.579.2.727 1950 Unknown [id number] 2.16.840.1.650631.3.579.2.727 1950 Unknown [id number] 2.16.840.1.000484.3.579.2.727 1950 Unknown [id number] 2.16.840.1.471051.3.579.2.727 1950 Unknown [id number] 2.16.840.1.918683.3.579.2.727 1950 Unknown [id number] 2.16.840.1.733250.3.579.2.727 1950 Unknown [id number] 2.16.840.1.560663.3.579.2.727 1950 Unknown [id number] 2.16.840.1.877961.3.579.2.727 Unknown [id number] 2.16.840.1.528692.3.579.2.593 Unknown [id number] 2.16.840.1.448117.3.579.2.531 Social History Date Type Detail Facility Start: 05-31-2021 End: 01-08-2022 Tobacco smoking status Ex-smoker (finding) [facility] Other Sex Assigned At Female [facility] Other Tobacco smoking status [facility] Tobacco smoking consumption unknown [facility] Start: 1950 Sex Assigned At Not on file [facility] History of tobacco use Current smoker [facility] History of tobacco use Cigarette Smoker [facility] Start: 08-05-2022 Tobacco use and exposure Smokeless tobacco non-user [facility] Start: 1950 Sex Assigned At Female [facility] Medical Equipment Procedure Code Equipment Code Equipment Origin al Text Equipment Identifier Dates Capsule endoscopy, for patency of lumen evaluation Video capsule endoscopy system [id number] FDA Start: 09-11-2021 CERVICAL FUSION POSTERIOR [...] Back FDA Start: 06-28-2019 CERVICAL FUSION POSTERIOR Emidgio SOMMERS, Christ A 06/28/19 Unknown Back FDA [...] Assessment Result Facility 05-21-2023 Functional Status N/A [facility] 01-21-2023 Functional Status N/A [facility] 12-26-2022 Functional Status N/A [facility] 07-04-2022 Functional Status N/A [facility] 06-10-2022 Functional Status N/A [facility] 06-02-2022 Functional Status N/A [facility] 04-30-2022 Functional Status N/A [facility] 03-27-2022 Functional Status N/A [facility] 01-23-2022 Functional Status N/A [facility] 01-15-2022 Functional Status N/A [facility] 01-08-2022 Functional Status N/A [facility] 11-21-2021 Functional Status N/A [facility] 10-31-2021 Functional Status No [facility] 10-23-2021 Functional Status N/A [facility] 10-22-2021 Functional Status N/A [facility] Clinical Notes 09-25-2021 to 06-22-2023 Note Date & Type Note Facility 06-22-2023 Note [facility] Subjective Diann Linder is a 73 y.o. year old female patient being seen for 3 mo follow up CAD, WARREN, and chest pain. She had echo and labs in Mar 2023. 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 [facility] 05-21-2023 Evaluation + Plan note Extrac evie from: Title:Pain Management * Author:Nile Payan DO. Date:05/21/23 Impression and Plan History, physical examination, and personal review of pertinent imaging results indicate a diagnosis of: -Cervical radiculopathy and cervical postlaminectomy pain syndrome -Lumbosacral spondyloarthropathy Plan: -Refill gabapentin and [place], update controlled substance agreement as appropriate and [...] with any questions or concerns that arise. [facility]11-08-2023 NotePatient here for 1 year follow up [...] neck pain. Neurological: Positive for weakness.[facility] 03-18-2023 Note[facility] Cardiology - [facility] Subjective Diann Linder is [...] admitted to (more content not included)...[facility]09-13-2023 Evaluation + Plan noteExtracted from: Title:L5/S1 [...] the epidural space was confirmed using the kvbo-tg-plmfzinpzv technique and 2 cc of air. Injection [...] Date:02/12/2023 12:30:00 PM Scheduled Provider:Prudencio Payan DO Location[facility] Appointment Type:Pain Management - Follow Up (FT) [facility]09-13-2023 Note [id number]:127[facility] 12-26-2022 Evaluation + Plan noteExtracted from: Title:Pain [...] necessary. In the meantime, she intermittently uses [place] 5/325 twice daily as needed pain. She tolerates this well. She is requesting a refill today. OARRS was reviewed. Most recent UDS was reviewed. We will obtain an updated UDS today for compliance purposes. A refill be sent to her pharmacy. She will follow-up as above mentioned LILIANE score: 47% [facility]03-29-2023 History of Present illness Narrative* Christ Rodriguez [...] 02jun2022 shows 4mm subluxation C2-3 MRI cervical [id number] C7-T1 spondy with mild cord compression IMP: [...] cane Charline Velazquez RN documented in this [id number] Evaluation + Plan note Extracted from: Title:Pain [...] gave her 50% relief. She intermittently uses [place] 5/325 twice daily as needed pain. She can only walk around the grocery store if she has a cart. Previous physical therapy did not help. Previous injection did give some relief but not quite enough. She did see Dr. Christ Rodriguez. He had ordered the MRI of the cervical spine. Unfortunate, she does not want to travel all the way to [facility] to see him. She wonders if there is somebody locally she can see if it is needed. Health Status Allergies: Allergic Reactions (Selected) Severity Not Documented Amoxicillin- Hives., Allergies (1) ActiveReaction amoxicillinHives Current medications: (Selected) Prescriptions Prescribed Levsin 0.125 mg SL Tab: 0.125 mg = 1 tab(s), Oral, QID, PRN Spasm, # 20 tab(s), Refills(s) 0, [id number], cm, 10/31/21 16:20:00 EDT, Height/Length Dosing, 97.9, kg, 10/31/21 16:20:00 EDT, Weight Dosing [place] 325 mg-5 mg oral tablet: 1 tab(s), Oral, BID as needed for pain, 60 tab(s), Refill(s) 0, [id number], cm, 06/02/22 12:59:00 EST, Height/Length Dosing, 101.6, kg, 03/27/22 15:44:00 EST, Weight Dosing [place] 325 mg-5 mg oral tablet: 1 tab(s), Oral, BID as needed for pain, 60 tab(s), Refill(s) 0, [id number], cm, 09/18/21 13:15:00 EDT, Height/Length Dosing, 95.2, kg, 05/31/21 12:51:00 EST, Weight Dosing [place] 325 mg-5 mg oral tablet: 1 tab(s), Oral, BID as needed for pain, 60 tab(s), Refill(s) 0, [facility], 158, cm, 07/04/22 14:50:00 EST, Height/Length Dosing, 99, kg, 07/04/22 14:50:00 EST, Weight Dosing gabapentin 300 mg Cap: See Instructions, 1 cap(s) Oral Qam 2 caps QHS, # 270 cap(s), Refills(s) 0, Pharmacy: [facility], 158, cm, 05/31/21 12:51:00 EST, Height/Length Dosing, 95.2, kg, 05/31/21 12:51:00 EST, Weight Dosing gabapentin 300 mg Cap: See Instructions, one cap in AM, 2 caps at bedtime., # 270 cap(s), Refills(s) 0, Pharmacy: [facility], 158, cm, 04/30/22 [...] Problems Chronic back pain / SNOMED CT 484936194 / Confirmed Osteoarthritis / SNOMED CT 0751768650 / Confirmed Hematuria / SNOMED CT 146684570 / Confirmed Anemia / SNOMED CT 896268463 / Confirmed HTN (hypertension) / SNOMED CT 3522102283 / Confirmed Glaucoma / SNOMED CT 99024922 / Confirmed Hypothyroid / SNOMED CT 00253249 / Confirmed C. difficile diarrhea / SNOMED CT 8297781422 / Confirmed Anemia / SNOMED CT 141930753 / Confirmed Arthritis / SNOMED CT 4774217 / Confirmed Heart disease / SNOMED CT 97278547 / Confirmed Hypertension / SNOMED CT 0662899186 / Confirmed Hyperlipidemia / SNOMED CT 33020634 / Confirmed Sleep apnea / SNOMED CT 936278948 / Confirmed Long-term current use of opiate analgesic drug / SNOMED CT 591194543611398 / Confirmed Added secondary to current Opioid Treatment Agreement Kidney stones / SNOMED CT 130243263 / Confirmed Renal mass / SNOMED CT 036273402 / Confirmed Abnormal kidney function / SNOMED CT 62964372 / Confirmed H/O hematuria / SNOMED CT 3442628912 / Confirmed Resolved: At risk for falls / SNOMED CT 135373190 Problem added when Risk for Falls Careplan was initiated. Resolved due to patient discharge. Resolved: At risk for falls / SNOMED CT 996224645 Problem added when Risk for Falls Careplan was initiated. Resolved due to patient discharge. Resolved: Arthritis / SNOMED CT 8023573 Resolved: Anxiety / SNOMED CT 17553884 Resolved: Trigeminal neuralgia of left side of face / SNOMED CT 70234593 Resolved: Osteopenia / SNOMED CT 718772286 Resolved: Hypotension / SNOMED CT 09489594 Resolved: Thyroid cancer / SNOMED CT 5197034371 Resolved: Carpal tunnel / SNOMED CT 504116895 Resolved: Thyroid cancer / SNOMED CT 596990352 Resolved: Liver disease / SNOMED CT 572179292 Resolved: Microscopic hematuria / SNOMED CT 198086106 Canceled: At risk for falls / SNOMED CT 361114171 Problem added when Risk for Falls Careplan was initiated. Resolved due to patient discharge. Canceled: Impaired skin integrity / SNOMED CT 56715639 Problem added on documentation of skin impairments. Resolved due to patient discharge. Canceled: Thyroid nodule / SNOMED CT 042044059 Canceled: At risk for falls / SNOMED CT 846941307 Problem added when Risk for Falls Careplan was initiated. Canceled: Depression / SNOMED CT 10674027 Canceled: Smoker / IMO 205949 Added secondary to documentation in Social History. Canceled: Smoker / SNOMED CT 63287995 Added secondary to documentation in Social History. Canceled: Cancer, uterine / SNOMED CT 1243234184 Canceled: Hematoma / SNOMED CT 1608645962 Objective Vital Signs 07/04/2022 14:40 EST Peripheral [...] Negative on the left Integumentary: Warm, Dry, [place]. Neurologic: Alert, Oriented. Psychiatric: Cooperative, Appropriate mood [...] on June 15, 2022 11:21 EST Encounter info:[id number], [place] - [facility], Outpatient, 06/12/2022 - 06/12/2022 [...] on June 03, 2022 10:34 EST Encounter info:[id number], Clarence Joyce, Outpatient, 06/02/2022 - 06/02/2022 * [...] on June 15, 2022 11:33 EST Encounter info:[id number], Clarence Joyce, Outpatient, 06/12/2022 - 06/12/2022 Impression [...] want to travel all the way to [facility] to see Dr. Rodriguez. She would like a local referral. We will facilitate this to Dr. Arthur Robison per patient's request. She states that she has had friends who have seen him. In regards to her pain she continues to use [place] 5/325 twice daily as needed pain. She [...] and plan. I was available for consultation. [facility]01-23-2023 Evaluation + Plan noteExtracted from: Title:Pain Managment [...] regards to her pain medication she uses [place] twice daily as needed pain and tolerates [...] Date:07/04/2022 02:30:00 PM Scheduled Provider:Indiana Walsh PA-C Location:[facility] Appointment Type:Pain Management - Follow Up (FT) [facility]09-07-2022 Hospital Discharge instructions Patient Education 01/15/2022 09:03:01 [...] Follow these instructions at home: Medicines Take yeyz-iln-zviwsuv and prescription medicines only as told by [...] to keep your urine pale yellow. ?Take odbh-oog-zqykbzp or prescription medicines. 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 ?Change your dressing as told by your [...] 05/23/2016 Document Revised: 11/17/2018 Document Reviewed: 11/17/2018 [employer] Patient Education 2020 [employer] 01/15/2022 09:02:57 Kidney Stones, Oszc-fl-Riyj Kidney Stones Kidney stones are rock-like masses [...] Follow these instructions at home: Medicines Take brxp-aub-stsrgvl and prescription medicines only as told by [...] 10/13/2008 Document Revised: 09/13/2019 Document Reviewed: 09/13/2019 [employer] Patient Education 2019 [employer]. Follow Up Care 01/14/2022 14:11:45 With:Franc SOMMERS, SAIMA Willis, URO Address: When: Unknown [facility] [place] 08-31-2022 Hospital Discharge instructions Patient Education 01/08/2022 15:01:38 Kidney Stones, Jxuj-rb-Casl Kidney Stones Kidney stones are rock-like masses [...] Follow these instructions at home: Medicines Take ksst-ozx-ojyojjm and prescription medicines only as told by [...] 10/13/2008 Document Revised: 09/13/2019 Document Reviewed: 09/13/2019 [email or web address] Patient Education 2019 [employer]. Follow Up Care 12/25/2021 13:11:33 With:BASIM WATSON, XUAN Fulton, URL Address: [address] [place] [address] When: Unknown [facility] Evaluation note* Encounter Date Diagnosis Assessment [...] weeks for the cough to go away [facility] Other 06-30-2022 Hospital Discharge instructions Patient Education [...] Follow these instructions at home: Medicines Take dpgm-pei-fsxzxtv and prescription medicines only as told by [...] 05/16/2008 Document Revised: 08/08/2019 Document Reviewed: 03/18/2017 [email or web address] Patient Education 2019 [employer]. Follow Up Care 10/30/2021 10:04:42 With:Susie Guzmán Address: [facility] [address] [place] [address]- Business (1) When:2 to 4 weeks Comments:Office follow-up with [facility] x-ray [facility]06-14-2022 Hospital Discharge instructions Patient Education 10/22/2021 12:00:24 Kidney Stones, Qqxi-gm-Wpbg Kidney Stones Kidney stones are rock-like masses [...] Follow these instructions at home: Medicines Take dnan-kcs-wkigqur and prescription medicines only as told by [...] 10/13/2008 Document Revised: 09/13/2019 Document Reviewed: 09/13/2019 [employer] Patient Education 2019 [employer]. Follow Up Care 09/10/2021 11:16:40 With:Ramirez Russell MD, VANITA Santo Address: [facility] [address], [place] [address]- When:Within 6 Month(s) Comments:w/ CT abdomen with [facility] 05-18-2022 Evaluation note* Encounter Date Diagnosis Assessment Notes Treatment Notes Treatment Clinical Notes September, Iron deficiency anemia due to chronic blood loss (ICD-10 - D50.0) Patient did have IV iron twice last month and is getting one this month proceed with egd with push. [facility] Other Evaluation + Plan note Future Appointments Appointment Date:10/23/2021 01:15:00 PM Scheduled Provider: Location:[facility] Appointment Type:Surgery FT Appointment Date:11/21/2021 03:30:00 PM Scheduled Provider:Chad Salas MD Location:[facility] [place] Appointment Type:Pain Management - Follow Up (FT) [facility] evaluation + Plan note Future Appointments Appointment Date:11/21/2021 03:30:00 PM Scheduled Provider:Chad Salas MD Location:[facility] [place] Appointment Type:[facility] - [facility] Future App[facility]ments Appointment Date:11/07/2021 10:00:00 AM Scheduled Provider: Location:[facility] Services Appointment Type:Surgery FT Appointment Date:11/21/2021 03:30:00 PM Scheduled Provider:Chad Salas MD Location:[facility] [place] Appointment Type:Pain Management - Follow Up (FT) Diagnostic Tests Pending * Urine Culture 10/31/21 [facility] Future Appointments Appointment Date:01/23/2022 01:00:00 PM Scheduled Provider:Chad Salas MD Location:[facility] [place] Appointment Type:[facility] Management - [facility] Future Appointments Appointment Date:03/27/2022 03:30:00 PM Scheduled Provider:Chad Salas MD Location:[facility] [place] Appointment Type:Pain Management - [facility] ([facility] Future Appointments Appointment Date:06/02/2022 12:45:00 PM Scheduled Provider:Indiana Walsh PA-C Location:[facility] [place] Appointment Type:Pain Management - Follow Up (FT) [facility] + Plan note Future Appointments Appointment Date:07/04/2022 02:30:00 PM Scheduled Provider:Indiana Walsh PA-C Location:[facility] [place] Appointment Type:Pain Management - Follow Up (FT) [facility] Future Appointments Appointment Date:06/12/2022 12:00:00 PM Scheduled Provider: Location:FT.MRI Appointment Type:MRI Spine (FT) Appointment Date:07/04/2022 02:30:00 PM Scheduled Provider:Indiana Walsh PA-C Location:[facility] [place] Appointment Type:Pain Management - Follow Up (FT) Future Scheduled Tests Radiology* MRI Spine Cervical w/o Contrast 06/12/22 * MRI Spine Lumbar w/o Contrast 06/12/22 [facility]No [facility] [place] Other Evaluation note* Diagnosis Cervical spondylosis with myelopathy- [facility] Cervical spondylosis with myelopathy [facility]* Diagnosis Cervical spondylosis with myelopathy- Primary [facility] noteNo assessment information availableSt[facility] Work Phone: History general Narrative - [...] Hospitalization History see above Hospitalization History DIVERTICULOSIS [facility] Other Hospital course Narrative No data available for this section [facility] Hospital Discharge instructions No data available for this section [facility] No data available for this section [facility] Summary Purpose Family History No Family History [...] myelopathy Procedures MR NEURO IMAGE IMPORT(HERNAN) DOWNLOAD [facility] IMAGES [place] [address] [facility] [address] [place] [address] Referral ID Status Reason Start Date Expiration Date Visits Re quested Visits Authorized [id number] Closed 07/30/2022 07/30/2023 1 1 Referred by: Franc SOMMERS, Savannah Stanley Additional Source Comments INFORMATION SOURCE (unrecogn ized section and content) DATE CREATED AUTHOR 07/31/2018 [facility] DATE CREATED AUTHOR AUTHOR'S ORGANIZ ATION 07/01/2019 [facility] DATE CREATED AUTHOR AUTHOR'S ORGANIZ ATION 11/13/2020 [facility] DATE CREATED AUTHOR AUTHOR'S ORGANIZ ATION 10/04/2021 [facility] DATE CREATED AUTHOR AUTHOR'S ORGANIZ ATION 08/21/2022 [facility] DATE CREATED AUTHOR AUTHOR'S ORGANIZ ATION 09/17/2022 [facility] DATE CREATED AUTHOR AUTHOR'S ORGANIZ ATION 01/10/2023 [facility] DATE CREATED AUTHOR AUTHOR'S ORGANIZ ATION 06/04/2023 [facility] EPIC DATE CREATED AUTHOR AUTHOR'S ORGANIZ ATION 06/23/2023 [facility] DATE CREATED AUTHOR AUTHOR'S ORGANIZ ATION 06/25/2023 Clarence Joyce [facility] Care Team (unrecognized sect ion and content) Personnel Name: SANAZ LAKE MD Address: [address] [place] [address] [place] Name: Xuan Mckeon Personnel Name: SANAZ LAKE MD Address: [address] [address] [place] Name: Xuan Mckeon Personnel Name: SANAZ LAKE MD Address: [address] [address] [place] Name: Xuan Mckeon Personnel Name: SANAZ LAKE MD Address: [address] [address] [place] Name: Xuan Mckeon Personnel Name: SANAZ LAKE MD Address: [address] [address] [place] Name: Xuan Mckeon Personnel Name: SANAZ LAKE MD Address: [address] [address] [place] Name: Xuan Mckeon Personnel Name: SANAZ LAKE MD Address: [address] [address] [place] Name: Xuan Mckeon Personnel Name: SANAZ LAKE MD Address: [address] [facility], [facility] [place] Name: Xuan Mckeon Personnel Name: SANAZ LAKE MD Address: [address] [facility], [phone] [place] Name: Xuan Mckeon Personnel Name: SANAZ LAKE MD Address: Address: [address] [facility], [phone] [place] Name: Xuan Mckeon Personnel Name: SANAZ LAKE MD Address: Address: [address] [facility], [facility] [place] Name: Xuan Mckeon Personnel Name: SANAZ LAKE MD Address: Address: [address] [facility], [id number] [place] Name: Xuan Mckeon Personnel Name: SANAZ LAKE MD Address: Address: [address] [facility], [phone] [place] Name: Xuan Mckeon Personnel Name: SANAZ LAKE MD Address: Address: [address] [facility], [id number] [place] Name: Xuan Mckeon Personnel Name: SANAZ LAKE MD Address: Address: [address] [facility], [phone] [place] Name: Xuan Mckeon Personnel Name: SANAZ LAKE MD Address: Address: [address] [facility], [address] [place] Name: Xuan Mckeon Personnel Name: SANAZ LAKE MD Address: Address: [address] [facility], [facility] [place] Name: Xuan Mckeon Personnel Name: SANAZ LAKE MD Address: Address: [address] [facility], [phone] [place] Name: Xuan Mckeon Personnel Name: Jed Piedra MD Address: Address: [address] [id number] Name: Xuan Mckeon Personnel Name: Jed Piedra MD Address: Address: [address] [place], [place] [id number] Name: Xuan Mckeon Personnel Name: Jed Piedra MD Address: Address: [facility] Sid [address] Name: Xuan Mckeon Personnel Name: Jed Piedra MD Address: Address: [facility] [address] Name: Xuan Mckeon Personnel Name: Jed Piedra MD Address: Address: [facility] Sid [address] Name: Xuan Mckeon REASON FOR VISIT (unrecogniz ed section and content) Specialty Diagnoses / Procedures Referred By Contac t Referred To Contact Radiology Diagnoses Cervical spondylosis with myelopathy Procedures MR NEURO IMAGE IMPORT(HERNAN) DOWNLOAD [facility] IMAGES TO Christ Lee MD [address] [place], [place] [id number] [facility] [address] [place] [address] Referral ID Status Reason Start Date Expiration Date Visits Re quested Visits Authorized [id number] Closed 07/30/2022 07/30/2023 1 1 Reason Comments [...] BE BASED ON THE PRIMARY CLINICAL RECORDS. [facility] [email or web address] [facility]. provides no warranty or guarantee of the accuracy or completeness of information in this document.
[2023-06-27 11:31] LABS: Basophils Percent Auto 0.8 % (0.2-2.0); Eosinophils Absolute Auto 0.2 10^3/uL (0.0-0.7); Eosinophils Percent Auto 4.4 % (0.9-7.0); Hematocrit 37.2 % (36.0-48.0); Hemoglobin 11.6 g/dL (12.0-16.0); Immature Granulocytes Abs Auto 0.01 10^3/uL (0.00-0.03); Immature Granulocytes Pct Auto 0.2 % (0.0-0.5); Lymphocytes Absolute Auto 1.4 10^3/uL (1.2-3.8); Lymphocytes Percent Auto 26.1 % (20.5-60.0); Mean Corpuscular HGB Conc 31.2 g/dL (29.9-35.2); Mean Corpuscular Hemoglobin 30.6 pg (26.7-34.0); Mean Corpuscular Volume 98.2 fL (81.0-99.0); Mean Platelet Volume 9.6 fL (9.5-13.5); Monocytes Absolute Auto 0.6 10^3/uL (0.3-0.8); Monocytes Percent Auto 12.2 % (1.7-12.0); Neutrophils Percent Auto 56.3 % (43.0-75.0); Platelet Count 208 10^3/uL (150-450); Red Blood Count 3.79 10^6/uL (4.20-5.40); White Blood Count 5.2 10^3/uL (4.0-11.0)
[2023-06-27 11:51] LABS: Alanine Aminotransferase 10 U/L (14-59); Albumin Globulin Ratio 0.9; Albumin Level 3.4 g/dL (3.4-5.0); Alkaline Phosphatase 122 U/L (46-116); Anion Gap 17.4; Aspartate Amino Transferase 15 U/L (15-37); BUN Creatinine Ratio 16.5; Bilirubin Total 0.6 mg/dL (0.2-1.0); Calcium 9.5 mg/dL (8.5-10.1); Carbon Dioxide 27.7 mmol/L (21.0-32.0); Chloride 106 mmol/L (98-107); Estimated GFR (African America 53 (>=60); Estimated GFR (Non-African Ame 44 (>=60); Globulin 3.7 g/dL; Glucose 110 mg/dL (74-106); Magnesium 1.8 mg/dL (1.8-2.4); Phosphorus 4.1 mg/dL (2.6-4.7); Potassium 4.1 mmol/L (3.5-5.1); Sodium 147 mmol/L (136-145); Total Protein 7.1 g/dL (6.4-8.2)
== END 2023-06-27 11:04 | disposition home or self-care (01) ==
PROVIDERS: PCP Family Medicine; Visit Provider Registered Nurse
DX: I25.10 Atherosclerotic heart disease of native coronary artery without angina pectoris (principal); E78.2 Mixed hyperlipidemia; M15.0 Primary generalized (osteo)arthritis; M81.0 Age-related osteoporosis without current pathological fracture; Z79.899 Other long term (current) drug therapy
CPT/HCPCS: 36415; 80053; 80061; 83735; 84100; 85025

== ENCOUNTER 2023-07-16 11:42 | Outpatient (OUT) | payer MEDICARE, OTHER, SELFPAY ==
--- OUTSIDE RECORDS SUMMARY | 2023-07-16 11:59 | XMS_ITS | CCD ---
Author Name Unknown Address [address] [place] [address] Organization [facility] Team Providers Care Hand Miter Operator Name Role Phone UNKNOWN, PROVIDER Admitting Unavailable SANAZ LAKE Referring Unavailable SANAZ LAKE Primary Care Unavailable UNKNOWN, PROVIDER Attending Unavailable SANAZ LAKE Primary Care Physician [phone] Xuan Mckeon Unavailable Unavailable Lonnie Vuong Unavailable [...] FERNANDO ZAMARRIPA Consulting UnavailANA Parra Consulting Unavailable TIMMIDavid, DR PATTON Admitting Unavailable TIMMIS, DR PATTON [...] azucena POST, DR HOWARD Gamino Consulting Unavailable WENDY ., DR SANAZ [place] [facility] Unavailable RAMIREZ Sunshine, DR SUSIE Alvarado Consulting Unavaila ble PAY [...] ., DR SUSIE Alvarado Attending Unavaila ble ZIEBJUNIOR, DR HOWARD Gamino Consulting Unavailable GUZMÁN JR [...] ACOSTA Attending Unavailable JED PIEDRA Referring Unavailable Indiana Walsh Attending Unavailable SHIRLEY Walsh Admitting Unavailabl e LAKE, SANAZ E Referring Unavailable Prudencio Payan Referring Unavailable Prudencio Payan Admitting Unavailable Prudencio Payan Attending Unavailable Indiana Walsh Admitting Unavailable Indiana Walsh Attending Unavailable Indiana Walsh Attending Unavailable Jillian, [place] Admitting Unavailable Prudencio [...] Attending Unavailable LAKE, SANAZ E Referring Unavailable nIdiana Walsh Admitting Unavailable MOALICE, VENKAT Attending Unavailable JULI COSBY Attending Unavailable Allergies Allergy Classification Reported Allergen(s) Allergy Type Date of Onset Reaction(s) Facility Penicillins (antibiotic) (1 source) Amoxicillin Drug Allergy 1 [facility] Repository (20 sources) Amoxicillin; Translations: [amoxicillin] Drug Allergy 0 rash, Hives, Other [employer] Other (1 source) Amoxicillin Drug Allergy [facility] Repository (1 source) Amoxicillin Drug Allergy 2 [facility] Repository Medications Current Medications Medication Drug Class(es) Dates Sig (Normalized) Sig (Original) acetaminophen 300 mg / codeine phosphate 30 mg oral tablet (3 sources) Opioid Agonist take 1 tablet by mouth every six hours Acetaminophen-Cod eine #3 300-30 MG 1 tablet as needed Orally every 6 hrs Active acetaminophen 325 mg / HYDROcodone bitartrate 5 mg oral tablet (20 sources) Opioid Agonist Start: 07-03-2023 Ostrander 325 mg-5 mg oral tablet 1 tab(s), Oral, BID as needed for pain, 60 tab(s), Refill(s) 0, [id number], 158, cm, 05/21/23 12:39:00 EST, Height/Length Dosing, 100, kg, 05/21/23 12:39:00 EST, Weight Dosing Start Date: 07/03/23 Status: Ordered Start: 04-22-2023 End: 05-22-2023 Ostrander 325 mg-5 mg oral table t 1 tab(s), Oral, BID as needed for pain, 60 tab(s), Refill(s) 0, [id number], 158, cm, 05/21/23 12:39:00 EST, Height/Length Dosing, 100, kg, 05/21/23 12:39:00 EST, Weight Dosing Start Date: 05/21/23 Status: Ordered Start: 12-26-2022 End: 01-25-2023 Ostrander 325 mg-5 mg oral table t 1 tab(s), Oral, BID as needed for pain for 30 day(s), 60 tab(s), Refill(s) 0, [id number], 158, cm, 12/26/22 14:12:00 EDT, Height/Length [...] tablet by mouth every four hours Hydrocodone-Acetaminophen (Ostrander) 5-325 mg Tablet Discontinued 1 TAB PO Q4H June 08, 2019 1:00am February 06, 2021 6:48am Acidophilus Probiotic Blend (2 sources) Start: 08-30-2019 take 1 capsule by mouth once daily Acidophilus Probiotic Blend 1 cap(s), Oral, Daily, Refill(s) 0 Start Date: 08/30/19 Status: Ordered [id number] 200 actuat albuterol 0.09 mg/actuat metered dose [...] oral capsule (20 sources) Start: 03-13-2021 take 72782 ug by mouth twice daily Biotin Active 00361 MCG PO Twice daily March 13, 2021 12:00am Start: 07-01-2019 take 1 tablet by laura twice daily biotin = 1 tab(s), Oral, BID, Refills(s) 0, Prophylaxis Start Date: 07/01/19 Status: Ordered Start: 07-01-2019 take 1 tablet by laura twice daily biotin = 1 tab(s), Oral, BID, Refills(s) 0 Start Date: 07/01/19 Status: Ordered Start: 06-08-2019 End: 03-13-2021 take 1500 ug by mouth twice daily Biotin Discontinued 1500 MCG PO Twice daily June 08, 2019 1:00am March 13, 2021 10:27am take 1 tablet by laura twice daily Biotin 65312 MCG TABS 1 tablet Orally bid 0 Active Biotin Maximum 64590 MCG (3 sources) Biotin Maximum 1 0000 [...] Refill(s) 0 Start Date: 04/02/21 Status: Ordered [place] Calcium with Vitamin D (2 sources) Start: 05-20-2017 take 1 tablet by mouth once daily [place] Calcium with Vitamin D 1 tab(s), Oral, [...] Status: Ordered furosemide 40 mg oral tablet (7 sources) Loop Diuretic Start: 09-26-2022 take 1 [...] bedtime., # 270 cap(s), Refills(s) 0, Pharmacy: [facility], 158, cm, 05/21/23 12:39:00 EST, Height/Length Dosing, 100, kg, 05/21/23 12:39:00 EST, Weight Dosing Start Date: 05/22/23 Status: Ordered Start: 12-08-2022 gabapentin 300 mg Cap See Instructions, one cap in AM, 2 caps at bedtime., # 270 cap(s), Refills(s) 0, Pharmacy: [facility], 158, cm, 09/26/22 13:04:00 EDT, Height/Length Dosing, 106.6, kg, 09/16/22 13:01:00 EDT, Weight Dosing Start Date: 12/08/22 Status: Ordered Start: 04-25-2021 gabapentin (NE URONTIN) 300 MG capsule Start: 06-08-2019 take 300 mg by mouth once daily at bedtime Gabapentin Active 600 MG PO Daily at bedtime June 08, 2019 1:00am 300mg AM take 1 capsule by [facility] every eight hours Gabapentin 300 MG 1 capsule Orally three times a day Active Glucos Sul 5pwj-Msj-Saomk-C-Mn (Glucosamine Chondroitin) 550-30-1 mg Capsule (1 source) Start: 06-08-2019 take 1 tablet by mouth twice daily Glucos Sul 4lbt-Bxy-Bhzgf-C-Mn (Glucosamine Chondroitin) 550-30-1 mg Capsule Active 1 TAB PO Twice daily June 08, 2019 1:00am Glucosamine Chondr 1500 Complx - (3 sources) Gl[address]amine Jon[address] 1500 Complx - as directed Orally twice a day Active Tupfegyoykm-Xhyoieqmn-S it C-Mn (Glucosamine Chondr 1500 Complx) CAPS [...] Spasm, # 20 tab(s), Refills(s) 0, Pharmacy: [facility][id number], 158, cm, 10/31/21 16:20:00 EDT, Height/Length Dosing, 97.9, kg, 10/31/21 16:20:00 EDT, Weight Dosing Start Date: 11/07/21 Status: Ordered inulin 200 mg / lactobacillus rhamnosus gg [id number] unt oral capsule (4 sources) Lactobacillus-In ulin ([facility] Artify It) CAPS Take by mouth. 0 Active 24 [...] q6hr, # 20 tab(s), Refills(s) 0, Pharmacy: [facility][id number], 158, cm, 10/31/21 16:20:00 EDT, [...] day(s), # 14 cap(s), Refills(s) 0, Pharmacy: [facility] #6252, 158, cm, 10/31/21 16:20:00 EDT, Height/Length Dosing, [...] chloride 10 meq extended release oral tablet (16 sources) Start: 03-03-2023 take 1 tablet by mouth twice daily Klor Con 10 mEq Cap-ER 1 tab, Oral, BID, # 180 cap(s), Refills(s) 1, Pharmacy: [facility], 158, cm, 02/12/23 [...] 0 Active primidone 50 mg oral tablet (6 sources) Anti-epileptic Agent Start: 09-16-2022 primidone 50 [...] day(s), # 90 tab(s), Refills(s) 3, Pharmacy: [facility], 158, cm, 07/04/22 [...] disease (7 sources) Atherosclerotic heart disease of cheesh-na coronary artery without angina pectoris; Translations: [ASHD [place] W/O ANGINA PECTORIS] Onset: 03-31-2022 Chronic [...] Onset: 06-09-2022 Chronic Other aftercare (1 source) 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; Translations: [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 ASPIRIN] Onset: 09-16-2022 Episodic Other aftercare (1 source) Other intermediate manager (current) drug therapy; Translations: [OTH [facility] CURRENT DRUG THERAPY] Onset: 09-16-2022 Episodic Other [...] Chronic Other diseases of kidney and ureters (19 sources) Renal mass 01-08-2022 Chronic Other diseases [...] Onset: 04-05-2022 Episodic Other lower respiratory disease (6 sources) Dyspnea 09-16-2022 Episodic Other nervous system disorders (20 sources) Carpal tunnel syndrome 01-19-2019 Chronic Other nervous system disorders (20 sources) Trigeminal neuralgia 11-24-2018 Episodic Other nutritional; endocrine; and metabolic disorders (2 sources) Body mass index (BMI) 40.0-44.9, adult; Translations: [Body mass index (BMI) 40.0-44.9, adult] Onset: 03-18-2023 Chronic Other screening for suspected conditions (not mental disorders or infectious disease) (18 sources) Abnormal renal function; Translations: [Abnormal result [...] Test Name Value Interpretation Reference Range Facility 36on 07-10-2023 36 Regarding lipid pane l drawn on 06/27/2023: MD Halle Toro MA He LDL level is good but triglycerides are elevated. Low fat diet is recommended. Also I want her to add Vascepa 2 g bid. Follow up as planned with lipid profile. Spoke with patient and informed her of new rx. I asked her to call me if it's too expensive. [facility] Insurance Correspondence Off ice06-23-2023 Insurance Correspondence Office [id number]#1 .00TIFF Normal [facility] Office Visiton 06-22-2023 Follow-up visit [id number] Yasmeen Linder 1950 F Date Provider Department Center 06/22/2023 VENKAT BRITTON YURIDIA Bhandari Family History Problem Relation Age of Onset Heart failure Mother Family Status - Relation Status Age at Mother Level of Service:[address] [place] OFFICE/OUTPATIENT ESTABLISHED LOW MDM 20 MIN Normal [facility] Consultation Noteon 06-09-19 24 Consultation Note [id number]#1 .00TIFF Normal [facility] Insurance Correspondence Off iceon 06-05-2023 Insurance Correspondence Office [id number]#2 .00TIFF [facility] Office/Clinic Note-Physician on 06-05-2023 Office/Clinic Note-Physician [id number] #1.00TIFF [facility] Consent for Treatmenton 05-11 Consent for Treatment [id number]# 1.00TIFF Normal [facility] Consent for Treatment [id number]# 1.00TIFF [facility] Consultation Noteon 05-21-19 Consultation Note Patient: DIANN LINDER Age: 73 [...] thus far. She is taking gabapentin and Ostrander and feels that these are very beneficial [...] 10 mEq Cap-ER 1 tab, Oral, BID Ostrander 325 mg-5 mg oral tablet 1 tab(s), [...] Histories Past Medical History: Active Thyroid cancer (165000562) Resolved Arthritis (5678308): Resolved. Anxiety (93971900): Resolved. Trigeminal neuralgia of left side of face (69332523): Resolved. Osteopenia (160419920): Resolved. Hypotension (94517511): Resolved. Thyroid cancer (4276998299): Resolved. Carpal tunnel (020841209): Resolved. Liver disease (708981884): Resolved. Microscopic hematuria (812462491): Resolved. Family History: Hypertension Mother Primary malignant neoplasm of female genital organ Mother Heart failure Mother Arthritis Mother Hyperlipidemia Mother Procedure history: Epidural injection of lumbar spine using fluoroscopic guidance (3599559214) on 01/21/2023 at 72 Years. Comments: 02/12/2023 12:36 Ericka Duke RN L5-S1 30% relief Epidural injection of lumbar spine using fluoroscopic guidance (9277827772) on 04/30/2022 at 72 Years. Comments: 06/02/2022 12:54 Denisse Jovel RN L5/S1-50% relief ESWL - Extracorporeal shockwave lithotripsy for renal calculus (135884419) on 11/07/2021 at 71 Years. ALINA L5/S1 (9953800298) on 10/23/2021 at 71 Years. Comments: 11/21/2021 15:36 Katelynn Meng RN L5/S1 60% relief Cystoscope (91550975) on 04/29/2021 at 71 Years. Bilateral L3-L5 RFA (0352041544) on 04/10/2021 at 71 Years. Comments: 05/31/2021 12:43 Katelynn Moscoso RN L3-L5 20% relief Injection of nerve root of lumbar spine using fluoroscopic guidance (9261553622) on 05/16/2020 at 70 Years. Comments: 06/07/2020 9:51 Ericka Horton RN Bilatateral L5- 20% relief Radiofrequency ablation of medial branch of lumbar nerve using fluoroscopic guidance (4575033242) on 01/25/2020 at 69 Years. Comments: 02/23/2020 11:08 JULISA Hudson Senior Software Test Engineer., Charline B/Jenny S1-S3 RFA 35% relief Injection of sac (more content not included)... [facility] Comment on above: Result Comment: Elec tronically Signed By: Prudencio Payan DO.br\Date and Time Signed: 05/21/23 13:13 EST In office Testingon 05-21-19 In office Testing [id number]# 1.00TIFF [facility] Legal Correspondence Officeo n 05-21-2023 Legal Correspondence Office [id number]# 1.00TIFF [facility] Office/Clinic Note-Nurseon 0 05-21-2023 Office/Clinic Note-Nurse [id number]# 1.00TIFF [facility] Office/Clinic Note-Physician on 05-21-2023 Office/Clinic Note-Physician [id number]# 1.00TIFF [facility] Orders Officeon 05-21-2023 Orders Office [id number]# 1.00TIFF [facility] PLATING STRIPPER Drug Screen-LCon 024 Test Name [id number] Invalid Interpretation Code [facility] Comment on above: Performed By: #### 1 [id number] #### [facility] Laboratory [address] [place] [address] Patient Correspondenceon Patient Correspondence [id number]# 1.00TIFF [facility] Patient Correspondence [id number]# 1.00TIFF [facility] Patient Correspondence [id number]# 1.00TIFF [facility] Patient Correspondence [id number]# 1.00TIFF [facility] Patient History Officeon Patient History Office [id number]# 1.00TIFF [facility] Reference Laboratory Testing Ordered By: Sierra Hawley on 05-21-2023 Test Name [id number] Invalid Interpretation Code [facility] SendOutsSS RAD - Ultrasound Reporton RAD - Ultrasound Report [id number]#1 .00TIFF [facility] Lab Reportson 04-29-2023 Lab Reports [id number]#1 .00TIFF [facility] Consultation Noteon 04-14-20 Consultation Note [id number]#1 .00TIFF [facility] 36on 04-08-2023 36 Please let her know [...] Dr. Tobias as planned. Thanks, Ericka [facility] Telephoneon 04-08-2023 Telephone [id number] Yasmeen Linder 1950 F Date Provider Department Center 04/08/2023 JULI SAUNDERS Family History Problem Relation Age of Onset Heart failure Mother Family Status - Relation Status Age at Mother Normal [facility] Office Visiton 03-18-2023 Follow-up visit [id number] Yasmeen Linder 1950 F Date Provider Department Center 03/18/2023 JULI SAUNDERS Family History Problem Relation Age of Onset Heart failure Mother Family Status - Relation Status Age at Mother Level of Service:86793 [place] OFFICE/OUTPATIENT ESTABLISHED MOD MDM 30-39 MIN Reason for Visit and Comments: Coronary Artery Disease [187] Hypertension [586509] Hyperlipidemia [182] Shortness of Breath [014332] Normal [facility] Consent for Treatmenton 10-0 Consent for Treatment [id number]# 1.00TIFF Normal [facility] Consultation Noteon 02-13-20 Consultation Note Patient: DIANN [...] qAM Klor-Con 10 1 tab, Oral, BID Ostrander 325 mg-5 mg oral tablet 1 tab(s), [...] Histories Past Medical History: Active Thyroid cancer (473331547) Resolved Arthritis (4245437): Resolved. Anxiety (06330415): Resolved. Trigeminal neuralgia of left side of face (67142762): Resolved. Osteopenia (269913884): Resolved. Hypotension (22009075): Resolved. Thyroid cancer (5006537733): Resolved. Carpal tunnel (844925216): Resolved. Liver disease (307636622): Resolved. Microscopic hematuria (231873822): Resolved. Family History: Hypertension Mother Primary malignant neoplasm of female genital organ Mother Heart failure Mother Arthritis Mother Hyperlipidemia Mother Procedure history: Epidural injection of lumbar spine using fluoroscopic guidance (3566144152) on 01/21/2023 at 72 Years. Comments: 02/12/2023 12:36 JULISA Fay RN, Ericka Chang L5-S1 30% relief Epidural injection of lumbar spine using fluoroscopic guidance (5305668691) on 04/30/2022 at 72 Years. Comments: 06/02/2022 12:54 Denisse Jovel RN L5/S1-50% relief ESWL - Extracorporeal shockwave lithotripsy for renal calculus (031371250) on 11/07/2021 at 71 Years. ALINA L5/S1 (1415660448) on 10/23/2021 at 71 Years. Comments: 11/21/2021 15:36 Katelynn Meng RN L5/S1 60% relief Cystoscope (88764829) on 04/29/2021 at 71 Years. Bilateral L3-L5 RFA (8223319095) on 04/10/2021 at 71 Years. Comments: 05/31/2021 12:43 Katelynn Moscoso RN L3-L5 20% relief Injection of nerve root of lumbar spine using fluoroscopic guidance (3406999597) on 05/16/2020 at 70 Years. Comments: 06/07/2020 9:51 SENA Fay RN, Ericka Chang Bilatateral L5- 20% relief Radiofrequency ablation of medial branch of lumbar nerve using fluoroscopic guidance (7968316003) on 01/25/2020 at 69 Years. Comments: 02/23/2020 11:08 JULISA Hudson Senior Software Test Engineer., Charline B/L S1-S3 RFA 35% relief Injection of sacroiliac joint using fluoroscopic guidance (4490752918) on 11/30/2019 at 69 Years. Comments: 12/29/2019 11:39 JULISA Hudson Certifie (more content not included)... [facility] Comment on above: Result Comment: Elec tronically Signed By: Prudencio Payan DO\.br\Date and Time Signed: 02/12/23 13:08 EDT Office/Clinic Note-Physician on 02-12-2023 Office/Clinic Note-Physician [id number]#1 .00TIFF [facility] Patient Correspondenceon Patient Correspondence [id number]#1 .00TIFF [facility] Patient Correspondence [id number]#1 .00TIFF [facility] Patient History Officeon Patient History Office [id number]#1 .00TIFF [facility] Consent for Procedure/Surger yon 01-21-2023 Consent for Procedure/Surgery [id number]#1 .00CD:127 [facility] Consent for Treatmenton 01-09 Consent for Treatment [id number]# 1.00CD:127 [facility] Discharge Instructionson Discharge Instructions [id number]#1 .00CD:127 [facility] IntraOperative Documentson 0 01-21-2023 IntraOperative Documents [id number]#1 .00CD:127 [facility] Main OR Intraoperative Recor don 01-21-2023 Main OR Intraoperative Record IntraOp Document Type FTPM Summary Primary Physician: Prudencio Payan DO Finalized Date/Time: 01/21/23 10:51:31 Pt. Name: DIANN LINDER/Sex: 1950 Female Med Rec #: [id number] Physician: Prudencio Payan DO Financial #: [id number] Pt. Type: O Room/Bed: / Admit/Disch: 01/21/23 [...] Antoinette Carreon Role Performed Surgeon - Primary [facility] - Primary Scrub - Primary Time In [...] Javier Mallory Role Performed Scrub - Relief Development Scientist Time In 01/21/23 10:43:00 01/21/23 10:43:00 Time Out 01/21/23 10:52:00 01/21/23 10:52:00 Procedure LUMBAR EPIDURAL STEROID LUMBAR EPIDURAL STEROID INJECTION(.) INJECTION(.) Comments Last Modified By: Suhail CUEVA, Mindy Jang RN, Mindy Bae 01/21/23 10:51:26 01/21/23 10:51:26 Perioperative Protocols FTPM [...] and tissue Entry 1 Skin Integrity Intact, [place], Warm, and Skin Abnormality No Dry Outcomes [...] Device Rodney (more content not included)... Normal [facility] Main OR Preoperative Recordo n 01-21-2023 Main OR Preoperative Record Holding Area Document Type FTPM Summary Primary Physician: Prudencio Payan DO Finalized Date/Time: 01/21/23 09:56:09 Pt. Name: DIANN LINDER John Meng/Sex: 1950 Female Med Rec #: [id number] Physician: Prudencio Payan DO Financial #: [id number] Pt. Type: O Room/Bed: / Admit/Disch: 01/21/23 [...] Glasses Complaints of Pain: Yes Pain Comment: 2/10 lower buttocks Operative Site Yes Marked By: Schuyler Marking: Does Patient Smoke No Patient states Yes Comment - Adult Shaquille- postop adult Supervision supervision available Case Cancelled in No Holding Area see comments below for reason Last Modified By: Asmita Camacho RN 01/21/23 09:56:00 Finalized By: Asmita Camacho RN Document Signatures Signed By: Asmita Camacho RN 01/21/23 09:56 [facility] Operative Reporton 3 Operative Report L5/S1 [...] the epidural space was confirmed using the bijf-ds-rrqrqiisfu technique and 2 cc of air. Injection [...] agrees to continue currently prescribed/recommende d therapies. [facility] Comment on above: Result Comment: Elec tronically Signed By: Prudencio Payan DO.br\Date and Time Signed: 01/21/23 10:52 EDT Patient Correspondenceon Patient Correspondence [id number]# 1.00CD:127 [facility] Office/Clinic Note-Physician on 01-05-2023 Office/Clinic Note-Physician [id number]# 1.00CD:127 [facility] Laboratory Outside Office Co pyon 01-02-2023 Laboratory Outside Office Copy [id number]# 1.00CD:127 [facility] Consent for Treatmenton 12-09 Consent for Treatment [id number]#1 .00CD:127 [facility] Consent for Treatment [id number]#1 .00CD:127 [facility] Consultation Noteon 12-27-19 Consultation Note Patient: [...] gave her 50% relief. She intermittently uses Ostrander 5/325 twice daily as needed pain. She [...] amoxicillin Hives Current medications: (Selected) Prescriptions Prescribed Ostrander 325 mg-5 mg oral tablet: 1 tab(s), Oral, BID as needed for pain for 30 day(s), 60 tab(s), Refill(s) 0, [facility]/pharmacy #[id number], 158, cm, 12/26/22 14:12:00 EDT, Height/Length Dosing, 104.5, kg, 12/26/22 14:12:00 EDT, Weight Dosing gabapentin 300 mg Cap: See Instructions, one cap in AM, 2 caps at bedtime., # 270 cap(s), Refills(s) 0, Pharmacy: [facility], 158, cm, 09/26/22 13:04:00 EDT, Height/Length Dosing, 106.6, kg, 09/16/22 13:01:00 EDT, Weight Dosing sertraline 50 mg Tab: 50 mg, Oral, Daily, X 90 day(s), # 90 tab(s), Refills(s) 3, Pharmacy: [facility], 158, cm, 07/04/22 [...] Problems Chronic back pain / SNOMED CT 059486506 / Confirmed Osteoarthritis / SNOMED CT 1256974047 / Confirmed Hematuria / SNOMED CT 916398779 / Confirmed Anemia / SNOMED CT 133707722 / Confirmed HTN (hypertension) / SNOMED CT 0200672463 / Confirmed Glaucoma / SNOMED CT 54395174 / Confirmed Hypothyroid / SNOMED CT 63317419 / Confirmed C. difficile diarrhea / SNOMED CT 9615268344 / Confirmed Anemia / SNOMED CT 562894930 / Confirmed Arthritis / SNOMED CT 1123294 / Confirmed Thyroid cancer / SNOMED CT 794515811 / Confirmed Heart disease / SNOMED CT 13656118 / Confirmed Hypertension / SNOMED CT 9450838104 / Confirmed Hyperlipidemia / SNOMED CT 96152279 / Confirmed Sleep apnea / SNOMED CT 905199476 / Confirmed Long-term current use of opiate analgesic drug / SNOMED CT 155698039782758 / Confirmed Added secondary to current Opioid Treatment Agreement Kidney stones / SNOMED CT 500358176 / Confirmed Renal mass / SNOMED CT 281487967 / Confirmed Abnormal kidney function / SNOMED CT 23587019 / Confirme (more content not included)... [facility] Comment on above: Result Comment: Elec tronically Signed By: [place] Walsh PA-C\.br\Date and Time Signed: 12/26/22 14:24 EDT\.br\Electronically Co-Signed By: Chad Salas MD\.br\Date and Time Co-Signed: 12/27/22 17:09 EDT In office Testingon 12-27-19 In office Testing [id number]#1 .00CD:127 Normal [facility] Office/Clinic Note-Nurseon 0 12-26-2022 Office/Clinic Note-Nurse [id number]#1 .00CD:127 Normal [facility] Office/Clinic Note-Physician on 12-26-2022 Office/Clinic Note-Physician [id number]#1 .00CD:127 Normal [facility] Orders Officeon 12-26-2022 Orders Office [id number]#1 .00CD:127 Normal [facility] PLATING STRIPPER Drug Screen-LCon 023 Test Name [id number] Invalid Interpretation Code [facility] Comment on above: Performed By: #### 1 [id number] ####[facility] [address] [place] [address] Patient Correspondenceon Patient Correspondence [id number]#1 .00CD:127 Normal [facility] Patient Correspondence [id number]#1 .00CD:127 Normal [facility] Patient History Officeon Patient History Office [id number]#1 .00CD:127 Normal [facility] Reference Laboratory Testing Ordered By: Sierra Hawley on 12-26-2022 Test Name [id number] Invalid Interpretation Code [facility] SendOutsSS Consent for Treatmenton 09-08 Consent for Treatment [id number]# 1.00CD:127 Normal [facility] Consultation Noteon 09-27-19 Consultation Note Patient: DIANN [...] gave her 50% relief. She intermittently uses Ostrander 5/325 twice daily as needed pain. She [...] Spasm, # 20 tab(s), Refills(s) 0, Pharmacy: [id number]/pharmacy #[id number], 158, cm, 10/31/21 16:20:00 EDT, Height/Length Dosing, 97.9, kg, 10/31/21 16:20:00 EDT, Weight Dosing Ostrander 325 mg-5 mg oral tablet: 1 tab(s), Oral, BID as needed for pain, 60 tab(s), Refill(s) 0, [facility], 158, cm, 09/26/22 13:04:00 EDT, Height/Length Dosing, 106.6, kg, 09/16/22 13:01:00 EDT, Weight Dosing gabapentin 300 mg Cap: See Instructions, 1 cap(s) Oral Qam 2 caps QHS, # 270 cap(s), Refills(s) 0, Pharmacy: [facility], 158, cm, 05/31/21 12:51:00 EST, Height/Length Dosing, 95.2, kg, 05/31/21 12:51:00 EST, Weight Dosing gabapentin 300 mg Cap: See Instructions, one cap in AM, 2 caps at bedtime., # 270 cap(s), Refills(s) 0, Pharmacy: [facility], 158, cm, 07/04/22 14:50:00 EST, Height/Length Dosing, 99, kg, 07/04/22 14:50:00 EST, Weight Dosing sertraline 50 mg Tab: 50 mg, Oral, Daily, X 90 day(s), # 90 tab(s), Refills(s) 3, Pharmacy: [facility], 158, cm, 07/04/22 [...] Problems Chronic back pain / SNOMED CT 425573837 / Confirmed Osteoarthritis / SNOMED CT 0492541733 / Confirmed Hematuria / SNOMED CT 889988463 / Confirmed Anemia / SNOMED CT 618864161 / Confirmed HTN (hypertension) / SNOMED CT 1655219069 / Confirmed Glaucoma / SNOMED CT 55017440 / Confirmed Hypothyroid / SNOMED CT 54231690 / Confirmed C. difficile diarrhea / SNOMED CT 8750034951 / Confirmed Anemia / SNOMED CT 289392836 / Confirmed Arthritis / SNOMED CT 3225203 / Confirmed Thyroid cancer / SNOMED CT 605143751 / Confirmed Heart disease / SNOMED CT 29862874 / Confirmed Hypertension / SNOMED CT 8790017376 / Confirmed Hyperlipidemia / SNOMED CT 82007156 / Confirmed Sle (more content not included)... [facility] Comment on above: Result Comment: Elec tronically Signed By: [place] Walsh PA-C\.br\Date and Time Signed: 09/26/22 13:15 EDT\.br\Electronically Co-Signed By: Chad Salas MD\.br\Date and Time Co-Signed: 09/29/22 22:18 EDT Office/Clinic Note-Physician on 09-26-2022 Office/Clinic Note-Physician [id number]#1 .00CD:127 [facility] Patient Correspondenceon Patient Correspondence [id number]#1 .00CD:127 [facility] Patient Correspondence [id number]#1 .00CD:127 Normal [facility] Patient History Officeon Patient History Office [id number]#1 .00CD:127 Normal [facility] Ambulatory Visit Summaryon 0 09-16-2022 Ambulatory Visit Summary DIANN LINDER :1950 Visit Date:09/16/2022 Ambulatory Visit Instructions Your Diagnosis Recurrent falls while walking Fatigue Pain Osteoarthritis BMI 40.0-44.9, adult Non-smoker Your Care Team Attending Physician - Radha Guzman Primary Care Physician - WENDY SOMMERS, SANAZ Fulton This Is Your Medications List acetaminophen-hydroco done (Ostrander 325 mg-5 mg oral tablet) acetaminophen-hydroco done (Ostrander 325 mg-5 mg oral tablet) acetaminophen-hydroco done (Ostrander 325 mg-5 mg oral tablet) alendronate (Fosamax [...] Much When Why Instructions Unchanged acetaminophen-hydroco done (Ostrander 325 mg-5 mg oral tablet) 1 Tablets By Mouth 2 times a day as needed for as needed for pain Unchanged acetaminophen-hydroco done (Ostrander 325 mg-5 mg oral tablet) 1 Tablets By Mouth 2 times a day as needed for as needed for pain Unchanged acetaminophen-hydroco done (Ostrander 325 mg-5 mg oral tablet) 1 Tablets [...] D ext (more content not included)... Normal [facility] Family Medicine Office/Clini c Noteon 09-16-2022 Family Medicine Office/Clinic Note Chief Complaint est care, er f/u HPI Staff Patient is here for an ER follow up. Hospital:[facility] Admission date:09/12/22 Symptoms the patient presented with: [...] of facet (more content not included)... Normal [facility] Comment on above: Result Comment: Elec tronically Signed By: Radha Guzman\.sandra\Date and Time Signed: 09/16/22 13:30 EDT ED Note-Physicianon 09-16-19 ED Note-Physician [id number]#1 .00CD:127 Normal [facility] BNPon 09-12-2022 Natriuretic peptide B (Bld) [Mass/Vol] 136.0 pg/mL Normal <=900.[address] [facility] Comment on above: Performed By: #### C VDAGS #### [facility] [address] [place] [address] Dr. Sherry Sanches CBC AUTO DIFFon 09-12-2022 BASO # 0.0 103/ul Normal 0.0-0.[address] [facility] Comment on above: Performed By: #### C BC #### [facility] [address] [place] [address] Dr. Sherry Sanches Basophils/100 WBC (Bld) 0.6 % Normal 0.2-2.[address] [facility] Comment on above: Performed By: #### C BC #### [facility] [address] [place] [address] Dr. Sherry Sanches EO # 0.1 103/ul Normal 0.0-0.[address] [facility] Comment on above: Performed By: #### C BC #### [facility] [address] [address] [address] Sherry Sanches Eosinophils/100 WBC (Bld) 2.2 % Normal 0.9-7.[address] [facility] Comment on above: Performed By: #### C BC #### [facility] [address] [place] [address] Dr. Sherry Sanches Erythrocyte distribution width (RBC) [Ratio] 12.9 % Normal 11.0-15.[address] [facility] Comment on above: Performed By: #### C BC #### [facility] [address] [place] [address] Dr. Sherry Sanches Hematocrit (Bld) [Volume fraction] 35.9 % Critically low 36.0-48.[address] [facility] Comment on above: Performed By: #### C BC #### [facility] [address] [address] [address] Sherry Sanches Hemoglobin (Bld) [Mass/Vol] 11.8 g/dL Critically low 12.0-16.[address] [facility] Comment on above: Performed By: #### C BC #### [facility] [address] [address] [address] Sherry Sanches IG # 0.04 10e3/ul Critically high 0.00-0.03 [facility] Comment on above: Performed By: #### C BC #### [facility] [address] [place] [address] Dr. Sherry Sanches IG % 0.6 % Critically high 0.0-0.5 [facility] Comment on above: Performed By: #### C BC #### [facility] [address] [place] [address] Dr. Sherry Sanches LYMPH # 0.9 103/ul Critically low 1.2-3.8 [facility] Comment on above: Performed By: #### C BC #### [facility] [address] [place] [address] Dr. Sheryr Sanches Lymphocytes/100 WBC (Bld) 13.5 % Critically low 20.5-60.[address] [facility] Comment on above: Performed By: #### C BC #### [facility] [address] [place] [address] Dr. Sherry Sanches MANUAL DIFF REQ NO Normal [facility] Comment on above: Performed By: #### C BC #### [facility] [address] [place] [address] Dr. Sherry Sanches MCH (RBC) [Entitic mass] 31.6 pg Normal 26.7-34.[address] [facility] Comment on above: Performed By: #### C BC #### [facility] [address] [place] [address] Dr. Sherry Sanches MCHC (RBC) [Mass/Vol] 32.9 g/dL Normal 29.9-35.[address] [facility] Comment on above: Performed By: #### C BC #### [facility] [address] [address] [address] Sherry Sanches MCV (RBC) [Entitic vol] 96.2 fL Normal 81.0-99.[address] [facility] Comment on above: Performed By: #### C BC #### [facility] [address] [address] [address] Sherry Sanches MONO # 0.6 103/ul Normal 0.3-0.[address] [facility] Comment on above: Performed By: #### C BC #### [facility] [address] [address] [address] Sherry Sanches Monocytes/100 WBC (Bld) 9.9 % Normal 1.7-12.[address] [facility] Comment on above: Performed By: #### C BC #### [facility] [address] [address] [address] Sherry Sanches NEUT # 4.6 103/ul Normal 1.4-6.[address] [facility] Comment on above: Performed By: #### C BC #### [facility] [address] [address] [address] Sherry Sanches Neutrophils/100 WBC (Bld) 73.2 % Normal 43.0-75.[address] [facility] Comment on above: Performed By: #### C BC #### [facility] [address] [address] [address] Sherry Sanches Platelet mean volume (Bld) [Entitic vol] 9.1 fL Critically low 9.5-13.[address] [facility] Comment on above: Performed By: #### C BC #### [facility] [address] [address] [address] Sherry Sanches PLT 220 103/ul Normal 150-450 [facility] Comment on above: Performed By: #### C BC #### [facility] [address] [address] [address] Sherry Sanches RBC 3.73 106/ul Critically low 4.20-5.40 [facility] Comment on above: Performed By: #### C BC #### [facility] [address] [place], [place] [address] Dr. Sherry Sanches WBC 6.3 103/ul Normal 4.0-11.[address] [facility] Comment on above: Performed By: #### C BC #### [facility] [address] [place], [place] [address] Dr. Sherry Sanches CPKon 09-12-2022 CK [Catalytic activity/Vol] 84 U/L Normal 26-[address] [facility] Comment on above: Performed By: #### C BC #### [facility] [address] [place], [place] [address] HEAD WO CONon [...] MAURICE DAILY Date: 2022-09-12 16:26 Normal [facility] SARS-CoV-2 (COVID-19) RNA GABE+probe Ql (Unsp spec) Not detected Normal NOT DETECTED [facility] Comment on above: Result Comment: This test is not yet approved or cleared by the [place] FDA. When there are no FDA-approved or cleared tests available, and other criteria are met, FDA can make tests available under an emergency access mechanism called an Emergency Use Authorization (EUA). The EUA for this test is supported by the [place] of Health and Human Service's (HHS's) declaration [...] SARS-CoV-2. Performed By: #### C VDAGS #### [facility] [address] [place] [address] Dr. Sherry Sanches ER URINE PROFILEon 3 Bilirubin Ql (U) Negative Normal NEGATIVE [facility] Comment on above: Performed By: #### DAMIEN FOWLER #### [facility] [address] [place] [address] Dr. Sherry Sanches Clarity (U) CLEAR Normal CLEAR [facility] Comment on above: Performed By: #### MARY JO FOWLERRO #### [facility] [address] [place] [address] Dr. Sherry Sanches Color (U) LT. YELLOW Normal YELLOW [facility] Comment on above: Performed By: #### MARY JO FOWLERRO #### [facility] [address] [place] [address] Dr. Sherry [place] A micrscopic examination will be performed if indicated. Normal [facility] Comment on above: Performed By: #### MARY JO FOWLERRO #### [facility] [address] [place] [address] Dr. Sherry Sanches Glucose Ql (U) Negative Normal NEGATIVE [facility] Comment on above: Performed By: #### Donaldo RAMIREZ UMICRO #### [facility] [address] [address] [address] Sherry Sanches Hemoglobin Ql (U) MODERATE Abnormal NEGATIVE [facility] Comment on above: Performed By: #### Donaldo RAMIREZ UMICRO #### [facility] [address] [address] [address] Sherry Sanches Ketones Ql (U) Negative Normal NEGATIVE [facility] Comment on above: Performed By: #### Donaldo RAMIREZ UMICRO #### [facility] [address] [place] [address] Dr. Sherry Sanches LEUKOCYTES Negative Normal NEGATIVE [facility] Comment on above: Performed By: #### Donaldo RAMIREZ UMICRO #### [facility] [address] [place] [address] Dr. Sherry Sanches Nitrite Ql (U) Negative Normal NEGATIVE [facility] Comment on above: Performed By: #### Donaldo RAMIREZ UMICRO #### [facility] [address] [place] [address] Dr. Sherry Sanches pH (U) 5.0 [pH] Normal 5-[address] [facility] Comment on above: Performed By: #### Donaldo RAMIREZ UMICRO #### [facility] [address] [place] [address] Dr. Sherry Sanches SPEC GRAVITY 1.020 Normal 1.005-<=1.[address] [facility] Comment on above: Performed By: #### Donaldo RAMIREZ UMICRO #### [facility] [address] [place] [address] Dr. Sherry Sanches UA PROTEIN Negative Normal NEGATIVE/ TRACE [facility] Comment on above: Performed By: #### Donaldo RAMIREZ UMICRO #### [facility] [address] [place] [address] Dr. Sherry Sanches UR MICRO IND INDICATED Normal [facility] Comment on above: Performed By: #### Donaldo RAMIREZ UMICRO #### [facility] [address] [place] [address] Dr. Sherry Sanches Urobilinogen Qn (U) 0.2 {Ellen'U}/dL Normal 0.2 - 1. [address] [facility] Comment on above: Performed By: #### E DAMIEN RAMIREZ #### [facility] [address] [place] [address] Dr. Sherry Sanches LIPASEon 09-12-2022 Lipase [Catalytic activity/Vol] 125.0 U/L Normal 73.0-393.[address] [facility] Comment on above: Performed By: #### C BC #### [facility] [address] [place] [address] Dr. Sherry Sanches PROF 14(COMP METB)on 023 Albumin [Mass/Vol] 3.7 g/dL Normal 3.4-5.0 [facility] Comment on above: Performed By: #### C BC #### [facility] [address] [place] [address] Dr. Sherry Sanches Albumin/Globulin [Mass ratio] 1.1 {ratio} Normal [facility] Comment on above: Performed By: #### C BC #### [facility] [address] [place] [address] Dr. Sherry Sanches ALP [Catalytic activity/Vol] 104 U/L Normal 46-[address] [facility] Comment on above: Performed By: #### C BC #### [facility] [address] [place] [address] Dr. Sherry Sanches ALT [Catalytic activity/Vol] 19 U/L Normal 14-[address] [facility] Comment on above: Performed By: #### C BC #### [facility] [address] [place] [address] Dr. Sherry Sanches Anion gap [Moles/Vol] 11.1 mmol/L Normal [facility] Comment on above: Performed By: #### C BC #### [facility] [address] [place] [address] Dr. Sherry Sanches AST [Catalytic activity/Vol] 15 U/L Normal 15-[address] [facility] Comment on above: Performed By: #### C BC #### [facility] [address] [address] [address] Sherry Sanches Bilirubin [Mass/Vol] 0.5 mg/dL Normal 0.2-1.[address] [facility] Comment on above: Performed By: #### C BC #### [facility] [address] [address] [address] Sherry Sanches Calcium [Mass/Vol] 8.9 mg/dL Normal 8.5-10.1 [facility] Comment on above: Performed By: #### C BC #### [facility] [address] [address] [address] Sherry Sanches Chloride [Moles/Vol] 104 mmol/L Normal 98-[address] [facility] Comment on above: Performed By: #### C BC #### [facility] [address] [address] [address] Sherry Sanches CO2 [Moles/Vol] 29.7 mmol/L Normal 21.0-32.0 [facility] Comment on above: Performed By: #### C BC #### [facility] [address] [address] [address] Sherry Sanches Creatinine [Mass/Vol] 1.29 mg/dL Critically high 0.55-1.[address] [facility] Comment on above: Performed By: #### C BC #### [facility] [address] [address] [address] Sherry Sanches EGFR-AF NIUEAN 49 mL/min/1.73m2 Critically low >=60 [facility] Comment on above: Performed By: #### C BC #### [facility] [address] [address] [address] Sherry Sanches EGFR-NON AF NIUEAN 41 mL/min/1.73m2 Critically low >=[address] [facility] Comment on above: Performed By: #### C BC #### [facility] [address] [address] [address] Sherry Sanches Globulin (S) [Mass/Vol] 3.4 g/dL Normal [facility] Comment on above: Performed By: #### C BC #### [facility] [address] [address] [address] Sherry Sanches Glucose [Mass/Vol] 126 mg/dL Critically high 74-106 [facility] Comment on above: Performed By: #### C BC #### [facility] [address] [address] [address] Sherry Sanches Potassium [Moles/Vol] 3.8 mmol/L Normal 3.5-5.[address] [facility] Comment on above: Performed By: #### C BC #### [facility] [address] [address] [address] Sheryr Sanches Protein [Mass/Vol] 7.1 g/dL Normal 6.4-8.2 [facility] Comment on above: Performed By: #### C BC #### [facility] [address] [place] [address] Dr. Sherry Sanches Sodium [Moles/Vol] 141 mmol/L Normal 136-145 [facility] Comment on above: Performed By: #### C BC #### [facility] [address] [place] [address] Dr. Sherry Sanches Urea nitrogen [Mass/Vol] 17.0 mg/dL Normal 7.0-18.[address] [facility] Comment on above: Performed By: #### C BC #### [facility] [address] [place] [address] Dr. Sherry Sanches Urea nitrogen/Creatinine [Mass ratio] 13.2 mg/mg Normal [facility] Comment on above: Performed By: #### C BC #### [facility] [address] [place] [address] Dr. Sherry Sanches SYMPTOMATIC COVID-19 ANTIGEN on 09-12-2022 EUA Statement SEE BELOW Normal [facility] Comment on above: Result Comment: This [...] is revoked sooner. Performed By: #### C KATHLEENAGS #### [facility] [address] [place] [address] Dr. Sherry Sanches SARS-CoV-2 (COVID-19) RNA GABE+probe Ql (Unsp spec) Negative Normal NEGATIVE [facility] Comment on above: Performed By: #### C KATHLEENAGS #### [facility] [address] [place] [address] Dr. Sherry Sanches TROPONIN, HIGH SENSITIVITYon 09-12-2022 HSTROP 5.9 pg/mL Normal 4.0-51.3 [facility] Comment on above: Result Comment: CUT- OFF POINTS HAVE BEEN ESTABLISHED BASED ON THE FOURTH UNIVERSAL DEFINITIONS OF MYOCARDIAL INFARCTION. THE UPPER REFERENCE LIMIT (URL) OF TROPONIN, DEFINED THE 99TH PERCENTILE OF cTnI DISTRIBUTION IN A REFERENCE POPULATION, HAS BEEN CONFIRMED THE DECISION THRESHOLD FOR OR DIAGNOSIS. Performed By: #### H LDUIVINAPN #### [facility] [address] [place] [address] Dr. Sherry Sanches HSTROP 5.0 pg/mL Normal 4.0-51.3 [facility] Comment on above: Result Comment: CUT- OFF POINTS HAVE BEEN ESTABLISHED BASED ON THE FOURTH UNIVERSAL DEFINITIONS OF MYOCARDIAL INFARCTION. THE UPPER REFERENCE LIMIT (URL) OF TROPONIN, DEFINED THE 99TH PERCENTILE OF cTnI DISTRIBUTION IN A REFERENCE POPULATION, HAS BEEN CONFIRMED THE DECISION THRESHOLD FOR OR DIAGNOSIS. Performed By: #### C VDAGS #### [facility] [address] [place] [address] Dr. Sherry Sanches URINE MICROSCOPIC ONLYon BACTERIA TRACE Abnormal NONE SEEN [facility] Comment on above: Performed By: #### DAMIEN FOWLER ####[facility] [id number] [address]Dr. Sherry Sanches Bacteria identified Cx Nom (U) NOT INDICATED Normal [facility] Comment on above: Performed By: #### MARY JO FOWLERRO ####[facility] [id number] [address]Dr. Sherry Sanches CAST NONE SEEN Normal NONE SEEN [facility] Comment on above: Performed By: #### MARY JO FOWLERRO ####[facility] [id number] [address]Dr. Sherry Sanches Crystals LM Nom (Urine sed) NONE SEEN Normal NONE SEEN [facility] Comment on above: Performed By: #### MARY JO FOWLERRO ####[facility] [address] [address]Dr. Sherry Sanches Epithelial cells LM Ql (Urine sed) FEW Abnormal NONE SEEN /RARE [facility] Comment on above: Performed By: #### MRAY JO FOWLERRO ####[facility] [id number] [address]Dr. Sherry Sanches MUCOUS TRACE Abnormal NONE SEEN [facility] Comment on above: Performed By: #### MARY JO FOWLERRO ####[facility] [id number] [address]Dr. Sherry Sanches RBC 10-20 Abnormal 0-2 [facility] Comment on above: Performed By: #### MARY JO FOWLERRO ####[facility] [id number] [address]Dr. Sherry Sanches WBC 0-2 Abnormal NONE SEEN [facility] Comment on above: Performed By: #### MARY JO FOWLERRO ####[facility] [id number] [address]Dr. Sherry Sanches XR CHEST 1 Von 09-12-2022 [...] LONNIE FIERRO Date: 2022-09-12 16:25 Normal [facility] Progress Noteson 08-06-2022 Mid Level Provider Authentication Interface Message Text DX: 2020 Posterior [...] follow up every 4-6 months. Normal [facility] Progress Noteson 08-05-2022 Mid Level Provider Authentication Interface Message Text Patient was identified by name and date of . Charline Velazquez RN Patient at risk for falls:Yes Falls Risk protocol implemented: Yes Ambulates with cane Charline Velazquez RN Normal [facility] Outside Records Officeon Outside Records Office [id number]# 1.00CD:127 Normal [facility] Coding Summary.on 07-31-2022 Coding Summary. CD:[id number] W w+PGhlYWQ+GL4GTOFeX98 myGGerZ0cN1RGJDgXLayi FWWZRVzIHlRcqbGsPG4ox XNjZXJu IC8+BX4cULPyDfduxMIfa 3Q1tGO2S86zow9kCHztdJ U1YTSlDgZltkend5xjaRw 6IDcuNmluOyBt EUTcsV78XLD0lI43Rj80j COalMAti4pifGc8IzJzSL TcLEJ4xTjeMZbpu9TzPKN jI58auKStj9B6 OLKjeByomEEzXvHyrUK4o D7jZLeunorfq9mssupvOv p8mx50nQWlu3U7nVB5R6T swuJ7BWTtvSFu DeivhHFJtN9jdmhex2rqx zzkVwYvAGZlTOr8JMs0ZS IxkSeeOmNtIH92KJA5NBY vzdVeN8RaQBOt dRpbCwM3m1Q1Lh7XL7CAH umoE5XUKSMUCZbibHY+PC 75qy02X0IoSrazPvn3XTN qJJW6gHI2zA2l DXFiJNqqp3L7bDE8Y3Xdm dBaph5mo9htXJBcAIgdX8 4uqDAdo6G6XNXgmXM8MZQ ojNwpLiCyiE74 Oyc+IFSjzSupv3FkHglgm 6xsj9bzjHb0CfmgEZXdjm AriGldROC0y5QuWt0aYTA srVZ8pND7gS3k HhJpYmK0PBjkJ190ZaHui CArYopjP96zM9BueYT+PH XvWfu1OZPdhVsfLH7qV0M hZGRpbmctbGVm eIoaPB5gMMPkbfxcEVBki W6aGYEcJ4m8LbHeOhX5BD hnV4ZzXVDkhovxZs86uC0 nDxEiQcM8AYqw J0WapoL9KHVzcJUmFCyiM KZ9Y46jx2Y4XKZjYZPvYN O5vNI8gF3skCiwhbvwbMQ mdDsgdmVydGlj FQshTNgrG343SVSyyHisS kNvZGluZyBEYXRlOiAgMD MvMjMvMjAyMzwvdGQ+PHR bRCW5vIysZWOy qFZnLGbtPe3mgWbegBwrQ B3qGYDtexfiKRVbbR7zMO UfqGAlkJkbWY0dMCLckte oh670RkMuNXM9 NQDogDPmM0GtgE5cPtGhA WZoPARtY4SfuYXeEMncV7 64TWcfAlQ3IDCkrnElT0A sLWFsaWduOiB0 m8M5Ch8Iz0SbhcdwZ1Pnh YWeOcIsUnalRFa5X8HqXt wvdHI+VW81DBTgLO68KRj 3AJE5bXvbIKoy TKZnX9EonA3wJoWrQFZbM GRkOyc+PHRhYmxlIHdpZH RoPScxMDAlJyBzdHlsZT0 dBa1nPIZqIYRh cWxajRAaVkRxz4mkBAYoD AocOI9skSpfN1ZfsSV6WZ Smm1u5Mp06F46dQ8NnsKC +SCAoeEF6pEA8 uK2tVmLtEjB5ZKfyV860B uNecCKtLzjzn3fcx4vifZ q6CxM7OCGtokGogKexRWI 0f0SsIz39E15v IHdpZHRoPSIxNSUiIHZhb Fgxko8duD6fIl2+PGNvbC D0qQC6pK0aYqRjRrG6AWo vY029KjUdyFZm Brwte8cwm2bzuGk6WdMdU YMusaJrlAbmFGD0a9UhGz 88H3RycAnmu0HqPjx0jf4 6kWZyt2P0jAJ7 Y5TjORPassqajPYwbUfvG I1eUHBwshixNKGtyB4lNX PwN2n0RbOmAkW5BHqwE1F qqwI2HWXmcCSb BNUnnLOLuL3rcicor9qzh wkbRsUlJXCrMSw0QZk3DL JnqAzgGnTuMXC9RjV9OBV 1tVHyoJ0kqZei nlrnpR0mHcp+FEG8iXIcl DXKEB4vAzaitRO+PHRkIH C0pJjkJFbjSKLmkM2hMHE oH9w9SbSuVcB8 RQdoF6EwhgK8NDBafCQkS MGlbMDYeQ1ssaiec9afvh xkNrHuEIMfWRy8CFy1XKY saWduOiBsZWZ0 HyV3KCE1mJNgbG9tfLhix jleeH8jDvd+QmlydGggRG X7MNw6O0DeFlc9DMQibXb uLS3vuAOoYLha Qn4pgXsocIivSD1hSJOtw phfi207JzIos9otJARttG PvZKyeCVV5T35wf0H4NOT gVMKyEQV9zBC2 eK5xsPfbwyjdtXKhaDkwo sWsfFcqJVkdGSfwA917KF PsyZofIxQaCXm3P2BwAfl 9ZIElzEweUC3l oXCyKZmnYb2tqUuioXtiI C2jPEGcpidoq818UmFga6 aqPUHewMRaUZnhLOE5H66 hm5U2HTQhFIVy EHO4pAZ9qK7izBzyqoith GVmdDsgdmVydGljYWwtYW iaB336BIDqfTclKuEvxEa 0M6TfMjp0YGAu wPzdFM4whTVmJDeyZc9cn HsyeSeaUA9pPPTsmymyi5 35FlBui1krOBOgiHWdOYz qKJP1M46gt3W0 GMHwLHVyXMA0aZS5kG5so GlnbjogbGVmdDsgdmVydG dqNBfpKAkqA369AMZmpEm nPlBhdGllbnQg DAbgKEb8N7OaXuazkRG+P V45SKDdRL89aHMenMTgk8 xwrQi6UjRuQMXgKBK2tYy pGSqvf4CgCDCk W62edRRub0M5WKHeyRaaw YWaXkKgaBO9kS9yRAqbey lgg8odmwbqBohoa9pzpy3 9nV40C80pSDxu ZHRoPSIzMCUiIHZhbGlnb g7weB9aAo4+THIuwOW0gX R5bL2eYRCjWxC4CWdoM01 9InRvcCIvPjxj t8xwz9zayUr0IuC4NHXzv nOjwAajQPD7m0OoJp92M4 9sIHdpZHRoPSIyMCUiIHZ vrQgidr2rmZ8o Ii8+FSUrvKE6vGM0yM7rG zSxQhG7QCgeD481QxZroU XnPfjiP15aS9HtyXW+PHR uAtw5YNElvRue XX6nmOVwBUpmIv6pDGN2Q uDrMyGfEAndH7JiCNGwzh pqbvhklER5QBWtDPRlkD0 4Mk4vqIlvWNFy qTDLiR5mvgpdr4nosubiG kRvBGGdBBz4XEr3HLKhyX nhHvMmTKT8UyY7AIH8hKD wxV1jeXmutkxo vP6iM6LfZZNcoozzSi73q H5gZyVbZyA6HSrdKdv+V0 VMTFMsIFNIRVJSWSBEPC9 9PS21fVJxq1K1 gAF9Z5QtXHIucnlropknf IM5MINcJMBobI54lMPfUJ ywCd4sy4N5y054VLOjHVC pbB98Yi4eqPkw BRDjgJILcL0napgrh7whd aegSlBtHCJfJYi6NLu3NR HvfMzkLtAkTHH2AvG9IDT 2qDLbiP3zvTls ejxqoD2sHnl+MDkvMjIvM Jw1CVmmdHV+AAAuIOI7tL ukKCpoZVDgdB7tYXIgC0l 6CwZwEgZ1ILdh Y6NzOBNrlssvMf61bT1vF fEhUoW1MFwqW1KgltI0TV RtvGCjFKozWIQ5I18tb1W 8EAXkBZMwVFT8 yCN7fX2bzQensburvKKfs DsgdmVydGljYWwtYWxpZ2 46IHRvcDsnPjcyIFllYXJ gSG37PR68yKGm y8J2rUD7Y3XuEREwuofnj bmwrCF9FHRgRCUvvU96cQ NxDCepAn7fw1F8r463TKW yFCZpeX80Ak7g rZduYYSfyUFNcK0qwosze 5ixympgPhNnQVAqHAh7OT q9NLLcyNxvBdPtFAX3KwT 5HCF5hGVvgQ1w yUhnoetapG7bJab+RmVtY BqcSV64EN93wHLxx5W5bM I7T9FiOWLrfunlcsypjQF 6SYSrLMBjnI23 yIBwTSiqUi7bs1V2x757Z OOrRFOroS03Gv7lbKupFH BftAMPsP3wjlpul0sqhbi gIzAwMDAwMDt0 DLq9WBNagOkzSnXpGDD7R qJ9EJY3hOLjmS1kqOeppy oahE5cGjp+R2C1rBX0lQU udDwvdGQ+PC90 yn50X4UeAdacHwr2YFEoA IY0aOK3aP7oZBGiERenu6 P9uCF7J8YbiwLvtf2ex9f cTLAcKLvzD42g uWPbc4D9BIAvgOO5YVXan PnyYqWvgM60Cmo+PGNvbG wsk8YuXjsrc6lup9javIx 9IjMwJSIgdmFs rGjxPSI1k6GsXg45J46kU HdpZHRoPSIzMCUiIHZhbG zark4faJ1aAg7+PGNvbCB 9wEG5hC5gMvUe XyG2UUbiP657NySupLYmD wsoq5hgt0szpFd7NcUzCF PiomWsvGkxQER4c9QlDy9 4R2AedBmnq1Cr Gvc2rg24lVPfp0M4jUT4I 3BhZGRpbmctbGVmdDogMC 7oFKDxbqflUFSijM9oYFG zC4q2OmXmRtV0 RPgiA4LlkzM6CFSsqIJbA AVkzUGJhF7imomia6eeuo naHxPyNXUeVVv8WSs1ZAB saWduOiBsZWZ0 WmP4VLU0zJAzqM1azQyqx eoqlF7oXmd+BYm4i6oepG WoZB9ocAT0OW73DK15tPZ pi4W4qXQ3E6Hl LIWucmuqvimgzPH6AYTqZ VDaiX81Us1mqRwyNn3eDK PvRML3TNLghYDsY3HcdN4 yOiAjMDAwMDAw J4XpdZPhJJjlG665OYqaI uN4HDXnmiNbP2HvNQImkN rdGnY7j7F3Ks6GCW05VQ5 1FX62sXMwe3W8 yGN3H6TxGZGewohbggqvn IS7WBDeWXWglL50Vg3jxY dyWr6bKMHdUGA1WVRzeUD bA8AepS8aQiBr EWYmFAAhO3FgfFNrQNryP 046JOvkNlX4SWXkayQhF6 DaOZLayFueGmU6t1J7Ka3 GZm54MB91IH41 cLNeg5M8gFX6K7EpEUKcz zigovptyVD5MGAkRWBztZ 18Yq6neAmaFg3cUFLaJMM 4IVBwbHOfQ8Ap zG8gLgLbLVYyMAKsJ5Ihk INnNTjhY509BOltLfS6EQ IhrqKdV2HrRJHdrKwcBhL 7q6X1Gg9IIOzd vrq6A9UgMmgwxOG+PC90Y LRmDW71pAOklIRqx2wtxA e0AaUmGBGwABK9tHzeRGa pa0WcWLHqX62d sXAwa3Z5 (more content not included)... [facility] Physician Orderon 07-31-2022 Physician Order [id number]#1 [email or web address]:127 [facility] Laboratory Outside Office Co pyon 07-11-2022 Laboratory Outside Office Copy [id number]# 1.00CD:127 [facility] Coding Summary.on 07-09-2022 Coding Summary. CD:[id number] G h0bWw+PGhlYWQ+MQ0WTYH rW62zsWGueM1FW4xYSF2C RKZXSFLTIO8DYO5vdWB4I LljP4RijwYy FzwfkXSoPX46FGk3XWD2r WvnTHbvxS2oxOYpZ8x2Pi MdGW65vJ04KIqyALKvFhL 3LjZpbjsgbWFy V2yxUmNnsXXwNpx+PHRhY mxlIHdpZHRoPScxMDAlJy QheMrpLS1dDg6uXVWoHNN vbGxhcHNlOiBj x6lmUTMaLUgnRT3ccGefI 6HluID2LDLac0l2Ih38nB I+SDDeJNE4oGnsUPnwm08 6IxWgn4hzQQA8 tACqAKujHNI3R87an0N6C LDiZICgOMT7eRK2yF4umI dgvrxdP3KvuJAnOoR9ESD 5wXFkjX2ehBpr epbkzN0sDzv+S86CMX6UR OMZJL1KRic0Z7WxEctkiW I+JV78HPHgST79yXPzaZT ie7iygDe8KtGm GTOwKHQ5vEmuTTckc5ZtR DLzY85hkLYyj2S0QMTgeA jrbCEoVmDxxYH2tC0xVXj buorwo7eaaqfq Keogm5jhab12nB85Z41eE MloFRHwXDS3ZLGaZBPlcY csrs0beM9oCb2+RKjna7s ya0nzoGf8YeSm QYKitaRbbUvuPEK2l1CgH g43T0QssKfcf2ZnSse1ix 10rSSrx9A4zEJ3KCvnSYZ bpM9jUIzhXfC9 YKAuNkWsyT67dFLoSFifW y7qjVoeyTslYF9nLPNcwi fxWDAmzQ2xXUSjkSCliHp iOJ5jCNFsaelq h866UdKjPEB3UJXpuGKfK 7YvmO1bBtXfVNTfBNCvZ1 JrkSLoJNioY625KPsaAmT 7YYEevrLaZ7Qo ZTOtyZlcQcB7q2W9Gb4Rn 9FelnifSKP3FNhcZWYcUr IaFqEgWpR4G0HoPcf3UOA acDkeDZ7nF1On SDYnlnbmgsjixTE6ACFeR UMuzS08cGWaCNlqEl2rb8 J4k646BKBzDLZzpD31Gc5 udDogMTBwdCBU nT7frwlen0mlgkupOxUbL IQhEDn2YXf3KVTgcXfuNq LeUHR2RjO8AUI8iUCbpW1 plJvuoefquW5r Oyc+P76maP4pVND8EWS1z icxIYOrcnQcRS80VG51S7 RyPjwvdGFibGU+PGRpdiB etGwnEX4sQpWa q3brg4WnRQmbR6LyHVUmG PrpOrh5CTTsHOU9yHJ9eK 5iGCDcPLdof7P5iGD4A1W pqlYrxr2yt3et PSSgYGzyX99exPOew3U8G GFefMY3QNEajYzpGhFbpG 93Oyc+EXTqzPflz7PaMny cm8nav2ybtGp6 ZfJwZXNvsoEosCarWCH0b 6JiKu59V36jJQdtCCKyEO DwCGSrLWFruKrbrm4evM8 wIi8+PGNvbCB3 xOK8dX5jFOEyDmQ6MEfkN 624FpHauHNhGcqvx2imq7 kjfTt1WvFvOJExlsGcpSw kFYU5i1LrHi18 C74rWGfgFPVyMLWrVRBeH ZMnxDhkew9xbM2sIw8+PC 5pp7ijkf40rM86qJA+PHR cHXN9rHsbNEum UVIydV4tJZoxIpB0NQTuH rEjpF72eOIlHZgaXo0hdF xmgQgeQO3wJKJhhxxzv56 2ShPds0vpMBCl bVMqTLziWYL6C83rp8M1N ZOnSCAkRYJ0nCO6sS6crJ lnbjogbGVmdDsgdmVydGl nRRirTRecR477 IHRvcDsnPlBhdGllbnQgT dTnBQz6A1PdYsi8WUIxmA oaXW5xzRAlZXgqVz8ivOu zeGfcRV6wLGJx cqsll843YuSti3vqNRMbd FSbGEsgBMO2C74li3Y2DP BbMQTwYFD6oLJ9wF7nkXh nbjogbGVmdDsg seKmzEboALgzGQnfF605C HRvcDsnPkJpcnRoIERhdG N4ZA34LJ08mOHnh9L4xOF 4R7OlVVKxijxz qiutpZO5TKAkMEXftO54B x1xaElhGd8iORViVYO1UM XtqRIqI5CqlS4qShRaNSF hKYUvT7PinWGy EXzuY038HTmdSfE7XCIhu kEyH2HfJKIndWthCaH8u6 T3Hi8QS6Y8WT92VN88sII hl2M9iEK1Q4Hf BQUmynctdbehyIC1XZHrO TEjdP92Gm3tiPuuRs3hWY GnCHP1LFEtjVOyS9ZmiW6 yOiAjMDAwMDAw A6KxpYPfCGvpC211HBcrB hG8AXRofcNtY1DmRWMvxS qsGeS2h7T7Os4EZIc9ZU4 8DQ93cOTol6K7 cZP1X7AxLZDvymubputzo NR0ACTfDRRjcL88Jd0llW ygXy6jRZLqEVM5BAJyzNX bG1WpvC3uPuEz FWYzLSMnD9CayCZfCKmbK 358UIkaTiS1VNLwwqFpA6 LlUWWklMrvXeW2j3A2Su7 CLUMaCF18ZHT1 dFE5PJ71LL20S0HrMssdf GFibGU+PHRhYmxlIHdpZH RoPScxMDAlJyBzdHlsZT0 xHl1sLVMsPOXw rNqleXDpPfChk9cdAZEuE ZznWJ6arUbgI2IabLA0SY Awd4l7Si39R66kQ0XdaJK +XKRjzPT5pFV1 iK2eSeHsDyM6BVmcC497R qLynMBiWiewp0sjq7qvfQ c8JxQ6GUTzcwAfbJwdHHH 8c3CoOl11S62j IHdpZHRoPSIxNSUiIHZhb Kxkyk5zsZ8iHz6+PGNvbC Q2zHT2qR3qSuHsLiK0KSi kA917DuAgbBJw Bbefr8ecw1rjoGf8SePjV YOodcXtqDndZDY5f2QbHu 57S9ZdqBtaw4OwMvj9pa3 2uMWrz8O2mMB8 A9PcHGWyhddekIJlnPupG X0zFGYmjgmlQYNdaZ0hLU GcF9u5DuMfZpU5RRytO8F tzhA7PXUieJCy CQpdNZR0R23ry9T9FGUoC LVlAJX4cHD8cC0kfEdnbn ogbGVmdDsgdmVydGljYWw tXOciT997KIIg mKgjHTJklW2gSGPfpPSxx ZmfID7gGTRontoeQtwZSQ xTLCBTSEVSUlkgRDwvdGQ +KGYqSGB4lGrb QEheRYPmuR2xCJZzU6x1Y fUeAaM2VNndO1ZqNEHttn kdDc51xL2wXmSuKdX8GEw uR5FfxqU3ZCWa eFXsUCecRUN2X33pi3H1R TCaXFZySLN9dYU2wP5gcV lnbjogbGVmdDsgdmVydGl gPHqsTKgfX639 HNJkeHofScL1KoSaVhT4K RD3V7WtPlr5ZZPpsIflNG 2ocAAcCHbpNo1lgBgioQr xZA4hOLTnryfs SALuhX3dSKKugEGszNoxC U3kPSAximkhk061FeBdGW Z4ZSPkaENjI7HswR9mLxV xXDPmJMAoF3Gk lIEmBMxhT407BNsaYiS9V AChlaTeP1HkIJYqxGdzZx X6o4X8Ew00KmJLACIidhs vdGQ+PHRkIHN0 fHvzOScbLXAvkC7xNMHgK 8w8GkDlTnE5QZqbF0QqIL CvvhboXl42bT9hJeOpZpW 6IBpnL2ItyxG8 TJMnsUCfXOugRCP8H71tg 2F6FIPwPBJzRPG0xPH8wD 1hbGlnbjogbGVmdDsgdmV ydGljYWwtYWxp M957NIOcoAmkXhLhrOVtL TwvdGQ+RXDvAML1jXtfTS eoLCXamG7rXEMmJ9g6LhR yMhN7HWwdR2Mz RARptvepWe70oA4bKuWhL sE4OGgeA0QbqdX5ABQwqO BjLPwaSMP5P75ml4I9PBD zWWZrRVJ3mVB7 nZ9ucGnepjcdpOTcgUgqp jPfmZquDXelKFgdH213SW UorYolEfAgdQ0gUKVjGTt lbWVudDwvdGQ+ WX83ry35F4DiLrliLac0P GSsCAW6wBI4hQ4yRUInTZ bsn8D7qNI7A6DnjxYefc5 tv3beCBTyDGzh Q91mtTVba5X8OTBynID2D OTgaAbuPeTliT65Wjj+PG RnzNghn6MtJqhro7kri7w cgQq5QkJhREId ubZrlDvmLKG5u3NyNy86D 29sIHdpZHRoPSIzMCUiIH CseZxoei4fuU2fPh7+PGN clWN3vQR9oQ1t XmUhStU5QFqnR407XaAmb PJeBqcje7ewl0wqzTh2Fz RjVDSiwvYlfSmoMDC9y0B sKj81C1TinDnt g2MbCrh0kc66aRVds7I0k JE2A1XyWRVoiknbeYIyiF hgRR3lWQFtodjjCFWwpC8 kWUVzT1q8JkPq ThN6CJpiQ6QizxJ4HBVah VZgUSCjrQJUqN5dvmjce4 cgmlfnPeVkFSNpQTu6YUy 0LWFsaWduOiBs NDX9KdX7MIY0mKWadE7ls XokclgrcI8zZsk+UGh5c2 ctwEGwTO6qdSF9RG12LW3 2xKHdg2N7kOA2 X0PdBLUoownahamtyHY9R BFsNUQdeE90Il6mcAyuPa 2oGRHbBMC0URFphGCjZ8E jbR8jBqRgUIKg YNYpV1TapFAoCWiaH998S LhsVvI4XWBvpcJgT1NpWY SglXgiUaT6s5E5Sb0EVC2 1QG37JB12lXGa e9E6gBJ8V4RfRMEdbshai mjnmXM8GFLjZDCzfY75Ym 0rkGaeHw5rZADvGCN6QQX hzUWzP1VwvG3e TuYxOMTyAOFmE4TrhEXwV CxmT762DHreDpN3PQTqbx UtY6XeXAQreBjaGrN2w3O 5Gs7QDd01XT34 LF33rTHam2D1zJN2P9ZoO ETjmsenrturcYL2LOIuKM PwzN55Eb3pfUbcUj7aYOT aFWH9NJMvqAYp B2KzsY2fMbJrSRAmEANpY 0UgaCSpHTdnR467XXgkZg L1XPVjzsToN4UlRJFnkZq oWwB3u1H0Pv3O UZmnwpx5M6VyActgaRT+P O21HMBqHV79aNRifJEkx3 axpPn7PhXcJUMgUEE1eEk jCXwce9EgDVPu Y29s (more content not included)... [facility] Referrals Officeon Referrals Office [id number]# 1.00CD:127 [facility] Consent for Treatmenton 06-12 Consent for Treatment [id number]# 1.00CD:127 [facility] Consent for Treatment [id number]#1 .00CD:127 [facility] Consultation Noteon 07-04-19 Consultation Note Patient: DIANN [...] gave her 50% relief. She intermittently uses Ostrander 5/325 twice daily as needed pain. She can only walk around the grocery store if she has a cart. Previous physical therapy did not help. Previous injection did give some relief but not quite enough. She did see Dr. Christ Rodriguez. He had ordered the MRI of the cervical spine. Unfortunate, she does not want to travel all the way to [facility] to see him. She wonders if there is somebody locally she can see if it is needed. Health Status Allergies: Allergic Reactions (Selected) Severity Not Documented Amoxicillin- Hives., Allergies (1) Active Reaction amoxicillin Hives Current medications: (Selected) Prescriptions Prescribed Levsin 0.125 mg SL Tab: 0.125 mg = 1 tab(s), Oral, QID, PRN Spasm, # 20 tab(s), Refills(s) 0, [id number] 158, cm, 10/31/21 16:20:00 EDT, Height/Length Dosing, 97.9, kg, 10/31/21 16:20:00 EDT, Weight Dosing Ostrander 325 mg-5 mg oral tablet: 1 tab(s), Oral, BID as needed for pain, 60 tab(s), Refill(s) 0, [id number] 158, cm, 06/02/22 12:59:00 EST, Height/Length Dosing, 101.6, kg, 03/27/22 15:44:00 EST, Weight Dosing Ostrander 325 mg-5 mg oral tablet: 1 tab(s), Oral, BID as needed for pain, 60 tab(s), Refill(s) 0, [id number] 158, cm, 09/18/21 13:15:00 EDT, Height/Length Dosing, 95.2, kg, 05/31/21 12:51:00 EST, Weight Dosing Ostrander 325 mg-5 mg oral tablet: 1 tab(s), Oral, BID as needed for pain, 60 tab(s), Refill(s) 0, [place] [id number], 158, cm, 07/04/22 14:50:00 EST, Height/Length Dosing, 99, kg, 07/04/22 14:50:00 EST, Weight Dosing gabapentin 300 mg Cap: See Instructions, 1 cap(s) Oral Qam 2 caps QHS, # 270 cap(s), Refills(s) 0, Pharmacy: [facility], 158, cm, 05/31/21 12:51:00 EST, Height/Length Dosing, 95.2, kg, 05/31/21 12:51:00 EST, Weight Dosing gabapentin 300 mg Cap: See Instructions, one cap in AM, 2 caps at bedtime., # 270 cap(s), Refills(s) 0, Pharmacy: [facility], 158, cm, 04/30/22 [...] Problems Chronic back pain / SNOMED CT 695150073 / Confirmed Osteoarthritis / SNOMED CT 9111338068 / Confirmed Hematuria / SNOMED CT 776876631 / Confirmed Anemia / SNOMED CT 647665108 / Confirmed HTN (hypertension) / SNOMED CT 3814817089 / Confirmed Glaucoma / SNOMED CT 60135432 / Confirmed Hypothyroid / SNOMED CT 50947340 / Confirmed C. difficile diarrhea / SNOMED CT 0129814894 / Confirmed Anemia / SNOMED CT 043598277 / Confirmed Arthritis / SNOMED CT 5927834 / Confirmed Heart disease / SNOMED CT 97228145 / Confirmed Hypertension / SNOMED CT 4157280038 / Confirmed Hyperlipidemia / SNOMED CT 09700694 / Confirmed Sleep apnea / SNOMED CT 523732474 / Confirmed Long-term curren (more content not included)... Normal [facility] Comment on above: Result Comment: Elec tronically Signed By: Josue SOMMERS, Chad\.br\Date and Time Signed: 07/04/22 19:27 EST In office Testingon 07-04-19 23 In office Testing [id number]# 1.00CD:127 [facility] Office/Clinic Note-Physician on 07-04-2022 Office/Clinic Note-Physician [id number]# 1.00CD:127 [facility] PLATING STRIPPER Drug Screen-LCOrdered By : Celeste Lomax on 07-04-2022 Test Name PLATING STRIPPER Invalid Interpretation Code [facility] SendOutsSS Comment on above: Performed By: #### 1 [id number] #### [facility] [address] [place] [address] Patient Correspondenceon Patient Correspondence [id number]# 1.00CD:127 Normal [facility] Patient History Officeon Patient History Office [id number]# 1.00CD:127 Normal [facility] CBC AUTO DIFFon 06-06-2022 BASO # 0.1 103/ul Normal 0.0-0.[address] [facility] Comment on above: Performed By: #### C BC #### [facility] [address] [place] [address] Dr. Sherry Sanches Basophils/100 WBC (Bld) 0.8 % Normal 0.2-2.[address] [facility] Comment on above: Performed By: #### C BC #### [facility] [address] [place] [address] Dr. Sherry Sanches EO # 0.2 103/ul Normal 0.0-0.[address] [facility] Comment on above: Performed By: #### C BC #### [facility] [address] [place] [address] Dr. Sherry Sanches Eosinophils/100 WBC (Bld) 3.0 % Normal 0.9-7.[address] [facility] Comment on above: Performed By: #### C BC #### [facility] [address] [place] [address] Dr. Sherry Sanches Erythrocyte distribution width (RBC) [Ratio] 13.5 % Normal 11.0-15.[address] [facility] Comment on above: Performed By: #### C BC #### [facility] [address] [place] [address] Dr. Sherry Sanches Hematocrit (Bld) [Volume fraction] 34.7 % Critically low 36.0-48.[address] [facility] Comment on above: Performed By: #### C BC #### [facility] [address] [place] [address] Dr. Sherry Sanches Hemoglobin (Bld) [Mass/Vol] 12.1 g/dL Normal 12.0-16.[address] [facility] Comment on above: Performed By: #### C BC #### [facility] [address] [place] [address] Dr. Sherry Sanches IG # 0.04 10e3/ul Critically high 0.00-0.03 [facility] Comment on above: Performed By: #### C BC #### [facility] [address] [place] [address] Dr. Sherry Sanches IG % 0.7 % Critically high 0.0-0.5 [facility] Comment on above: Performed By: #### C BC #### [facility] [address] [place] [address] Dr. Sherry Sanches LYMPH # 1.4 103/ul Normal 1.2-3.[address] [facility] Comment on above: Performed By: #### C BC #### [facility] [address] [place] [address] Dr. Sherry Sanches Lymphocytes/100 WBC (Bld) 23.9 % Normal 20.5-60.[address] [facility] Comment on above: Performed By: #### C BC #### [facility] [address] [place] [address] Dr. Sherry Sanches MANUAL DIFF REQ NO Normal [facility] Comment on above: Performed By: #### C BC #### [facility] [address] [place] [address] Dr. Sherry Sanches MCH (RBC) [Entitic mass] 31.2 pg Normal 26.7-34.[address] [facility] Comment on above: Performed By: #### C BC #### [facility] [address] [place] [address] Dr. Sherry Sanches MCHC (RBC) [Mass/Vol] 34.9 g/dL Normal 29.9-35.[address] [facility] Comment on above: Performed By: #### C BC #### [facility] [address] [place] [address] Dr. Sherry Sanches MCV (RBC) [Entitic vol] 89.4 fL Normal 81.0-99.0 [facility] Comment on above: Performed By: #### C BC #### [facility] [address] [address] [address] Sherry Sanches MONO # 0.8 103/ul Normal 0.3-0.[address] [facility] Comment on above: Performed By: #### C BC #### [facility] [address] [address] [address] Sherry Sanches Monocytes/100 WBC (Bld) 13.8 % Critically high 1.7-12.[address] [facility] Comment on above: Performed By: #### C BC #### [facility] [address] [address] [address] Sherry Sanches NEUT # 3.5 103/ul Normal 1.4-6.[address] [facility] Comment on above: Performed By: #### C BC #### [facility] [address] [place] [address] Dr. Sherry Sanches Neutrophils/100 WBC (Bld) 57.8 % Normal 43.0-75.[address] [facility] Comment on above: Performed By: #### C BC #### [facility] [address] [address] [address] Sherry Sanches Platelet mean volume (Bld) [Entitic vol] 8.8 fL Critically low 9.5-13.[address] [facility] Comment on above: Performed By: #### C BC #### [facility] [address] [place] [address] Dr. Sherry Sanches PLT 259 103/ul Normal 150-450 [facility] Comment on above: Performed By: #### C BC #### [facility] [address] [address] [address] Sherry Sanches RBC 3.88 106/ul Critically low 4.20-5.[address] [facility] Comment on above: Performed By: #### C BC #### [facility] [address] [address] [address] Sherry Sanches WBC 6.0 103/ul Normal 4.0-11.0 [facility] Comment on above: Performed By: #### C BC #### [facility] [address] [place] [address] Dr. Sherry Sanches MAGNESIUMon 06-06-2022 Magnesium [Mass/Vol] 2.1 mg/dL Normal 1.8-2.[address] [facility] Comment on above: Performed By: #### H STROPN #### [facility] [address] [place] [address] Dr. Sherry Sanches PHOSPHORUSon 06-06-2022 Phosphate [Mass/Vol] 4.1 mg/dL Normal 2.6-4.[address] [facility] Comment on above: Performed By: #### H STROPN #### [facility] [address] [place] [address] Dr. Sherry Sanches PROF 14(COMP METB)on 023 Albumin [Mass/Vol] 4.0 g/dL Normal 3.4-5.0 [facility] Comment on above: Performed By: #### H STROPN #### [facility] [address] [place] [address] Dr. Sherry Sanches Albumin/Globulin [Mass ratio] 1.3 {ratio} Normal [facility] Comment on above: Performed By: #### H STROPN #### [facility] [address] [place] [address] Dr. Sherry Sanches ALP [Catalytic activity/Vol] 83 U/L Normal 46-[address] [facility] Comment on above: Performed By: #### H STROPN #### [facility] [address] [place] [address] Dr. Sherry Sanches ALT [Catalytic activity/Vol] 19 U/L Normal 14-[address] [facility] Comment on above: Performed By: #### H STROPN #### [facility] [address] [place] [address] Dr. Sherry Sanches Anion gap [Moles/Vol] 14.4 mmol/L Normal [facility] Comment on above: Performed By: #### H STROPN #### [facility] [address] [place] [address] Dr. Sherry Sanches AST [Catalytic activity/Vol] 16 U/L Normal 15-37 [facility] Comment on above: Performed By: #### H STROPN #### [facility] [address] [address] [address] Sherry Sanches Bilirubin [Mass/Vol] 0.6 mg/dL Normal 0.2-1.[address] [facility] Comment on above: Performed By: #### H STROPN #### [facility] [address] [address] [address] Sherry Sanches Calcium [Mass/Vol] 9.8 mg/dL Normal 8.5-10.1 [facility] Comment on above: Performed By: #### H STROPN #### [facility] [address] [address] [address] Sherry Sanches Chloride [Moles/Vol] 104 mmol/L Normal 98-[address] [facility] Comment on above: Performed By: #### H STROPN #### [facility] [address] [address] [address] Sherry Sanches CO2 [Moles/Vol] 28.7 mmol/L Normal 21.0-32.0 [facility] Comment on above: Performed By: #### H STROPN #### [facility] [address] [address] [address] Sherry Sanches Creatinine [Mass/Vol] 1.37 mg/dL Critically high 0.55-1.[address] [facility] Comment on above: Performed By: #### H STROPN #### [facility] [address] [address] [address] Sherry Sanches EGFR-AF NIUEAN 46 mL/min/1.73m2 Critically low >=[address] [facility] Comment on above: Performed By: #### H STROPN #### [facility] [address] [address] [address] Sherry Sanches EGFR-NON AF NIUEAN 38 mL/min/1.73m2 Critically low >=[address] [facility] Comment on above: Performed By: #### H STROPN #### [facility] [address] [address] [address] Sherry Sanches Globulin (S) [Mass/Vol] 3.1 g/dL Normal [facility] Comment on above: Performed By: #### H STROPN #### [facility] [address] [address] [address] Sherry Sanches Glucose [Mass/Vol] 96 mg/dL Normal 74-106 [facility] Comment on above: Performed By: #### H STROPN #### [facility] [address] [address] [address] Sherry Sanches Potassium [Moles/Vol] 4.1 mmol/L Normal 3.5-5.[address] [facility] Comment on above: Performed By: #### H STROPN #### [facility] [address] [address] [address] Sherry Sanches Protein [Mass/Vol] 7.1 g/dL Normal 6.4-8.2 [facility] Comment on above: Performed By: #### H STROPN #### [facility] [address] [address] [address] Sherry Sanches Sodium [Moles/Vol] 143 mmol/L Normal 136-145 [facility] Comment on above: Performed By: #### H STROPN #### [facility] [address] [address] [address] Sherry Sanches Urea nitrogen [Mass/Vol] 31.0 mg/dL Critically high 7.0-18.[address] [facility] Comment on above: Performed By: #### H STROPN #### [facility] [address] [address] [address] Sherry Sanches Urea nitrogen/Creatinine [Mass ratio] 22.6 mg/mg Normal [facility] Comment on above: Performed By: #### H STROPN #### [facility] [address] [address] [address] Sherry Sanches CULTURE URINEon 05-22-2022 CULTURE URINE Culture Observations : GREATER THAN TWO ORGANISMS PRESENT. PLEASE RESUBMIT CLEAN CATCH MID-STREAM URINE IF CLINICALLY INDICATED. Normal [facility] Comment on above: Performed By: #### U RCX ####[facility] [id number] [address]Dr. Sherry Sanches UA (CLEAN/CATCH) MICROSCOPIC IF INDICATEon 05-20-2022 Bilirubin Ql (U) Negative Normal NEGATIVE [facility] Comment on above: Performed By: #### C BC #### [facility] [address] [place] [address] Dr. Sherry Sanches Clarity (U) CLEAR Normal CLEAR [facility] Comment on above: Performed By: #### C BC #### [facility] [address] [place] [address] Dr. Sherry Sanches Color (U) LT. YELLOW Normal YELLOW [facility] Comment on above: Performed By: #### C BC #### [facility] [address] [place] [address] Dr. Sherry Sanches Glucose Ql (U) Negative Normal NEGATIVE [facility] Comment on above: Performed By: #### C BC #### [facility] [address] [place] [address] Dr. Sherry Sanches Hemoglobin Ql (U) Negative Normal NEGATIVE [facility] Comment on above: Performed By: #### C BC #### [facility] [address] [place] [address] Dr. Sherry Sanches Ketones Ql (U) Negative Normal NEGATIVE [facility] Comment on above: Performed By: #### C BC #### [facility] [address] [place] [address] Dr. Sherry Sanches LEUKOCYTES SMALL Abnormal NEGATIVE [facility] Comment on above: Performed By: #### C BC #### [facility] [address] [place] [address] Dr. Sherry Sanches Nitrite Ql (U) Negative Normal NEGATIVE [facility] Comment on above: Performed By: #### C BC #### [facility] [address] [place] [address] Dr. Sherry Sanches pH (U) 5.0 [pH] Normal 5-[address] [facility] Comment on above: Performed By: #### C BC #### [facility] [address] [place] [address] Dr. Sherry Sanches SPEC GRAVITY 1.020 Normal 1.005-<=1.[address] [facility] Comment on above: Performed By: #### C BC #### [facility] [address] [place] [address] Dr. Sherry Sanches UA PROTEIN Negative Normal NEGATIVE/ TRACE [facility] Comment on above: Performed By: #### C BC #### [facility] [address] [place] [address] Dr. Sherry Sanches UR MICRO IND INDICATED Normal [facility] Comment on above: Performed By: #### C BC #### [facility] [address] [place] [address] Dr. Sherry Sanches Urobilinogen Qn (U) 0.2 {Ellen'U}/dL Normal 0.2 - 1. 0 [facility] Comment on above: Performed By: #### C BC #### [facility] [address] [place] [address] Dr. Sherry Sanches URINE MICROSCOPIC ONLYon BACTERIA TRACE Abnormal NONE SEEN [facility] Comment on above: Performed By: #### C BC #### [facility] [address] [place] [address] Dr. Sherry Sanches Bacteria identified Cx Nom (U) CX ALREADY ORDERED Normal [facility] Comment on above: Performed By: #### C BC #### [facility] [address] [place] [address] Dr. Sherry Sanches CAST NONE SEEN Normal NONE SEEN [facility] Comment on above: Performed By: #### C BC #### [facility] [address] [place] [address] Dr. Sherry Sanches Crystals LM Nom (Urine sed) NONE SEEN Normal NONE SEEN [facility] Comment on above: Performed By: #### C BC #### [facility] [address] [place] [address] Dr. Sherry Sanches Epithelial cells LM Ql (Urine sed) FEW Abnormal NONE SEEN /RARE [facility] Comment on above: Performed By: #### C BC #### [facility] [address] [place] [address] Dr. Sherry Sanches MUCOUS SMALL Abnormal NONE SEEN [facility] Comment on above: Performed By: #### C BC #### [facility] [address] [address] [address] Sherry Sanches RBC NONE SEEN Abnormal 0-2 [facility] Comment on above: Performed By: #### C BC #### [facility] [address] [place] [address] Dr. Sherry Sanches WBC 2-5 Abnormal NONE SEEN [facility] Comment on above: Performed By: #### C BC #### [facility] [address] [address] [address] Sherry Sanches US THYROIDon 05-07-2022 US [...] LONNIE MCCORMACK Date: 2022-05-07 16:17 Normal [facility] THYROGLOBULIN ABon Thyroglobulin Antibody <1.0 Normal 0.0-0.[address] [facility] Comment on above: Result Comment: Thyr oglobulin Antibody measured by Yoli Rachelle Methodology Performed By: #### C BC #### [facility] [address] [place] [address] Dr. Sherry Sanches TSHon 04-24-2022 TSH 2.515 uIU/mL Normal 0.358-3.740 [facility] Comment on above: Performed By: #### T SH #### [facility] [address] [place] [address] Dr. Sherry Sanches CULTURE URINEon 04-07-2022 CULTURE URINE Culture Observations : HERB TO FOLLOW. Isolate 1 Streptococcus agalactiae 50,000 cfu/mL of Normal [facility] Comment on above: Performed By: #### U RCX ####[facility] [id number] [address]Dr. Sherry Sanches BNPon 03-31-2022 Natriuretic peptide B (Bld) [Mass/Vol] 98.0 pg/mL Normal <=900.[address] [facility] Comment on above: Performed By: #### C VDAGS #### [facility] [address] [address] [address] Sherry Sanches CBC AUTO DIFFon 03-31-2022 BASO # 0.0 103/ul Normal 0.0-0.[address] [facility] Comment on above: Performed By: #### C BC #### [facility] [address] [address] [address] Sherry Sanches Basophils/100 WBC (Bld) 0.6 % Normal 0.2-2.[address] [facility] Comment on above: Performed By: #### C BC #### [facility] [address] [place] [address] Dr. Sherry Sacnhes EO # 0.2 103/ul Normal 0.0-0.[address] [facility] Comment on above: Performed By: #### C BC #### [facility] [address] [place] [address] Dr. Sherry Sanches Eosinophils/100 WBC (Bld) 3.3 % Normal 0.9-7.[address] [facility] Comment on above: Performed By: #### C BC #### [facility] [address] [place] [address] Dr. Sherry Sanches Erythrocyte distribution width (RBC) [Ratio] 13.7 % Normal 11.0-15.[address] [facility] Comment on above: Performed By: #### C BC #### [facility] [address] [place] [address] Dr. Sherry Sanches Hematocrit (Bld) [Volume fraction] 37.7 % Normal 36.0-48.[address] [facility] Comment on above: Performed By: #### C BC #### [facility] [address] [place] [address] Dr. Sherry Sanches Hemoglobin (Bld) [Mass/Vol] 12.4 g/dL Normal 12.0-16.[address] [facility] Comment on above: Performed By: #### C BC #### [facility] [address] [place] [address] Dr. Sherry Sanches IG # 0.01 10e3/ul Normal 0.00-0.[address] [facility] Comment on above: Performed By: #### C BC #### [facility] [address] [place] [address] Dr. Sherry Sanches IG % 0.2 % Normal 0.0-0.[address] [facility] Comment on above: Performed By: #### C BC #### [facility] [address] [place] [address] Dr. Sherry Sanches LYMPH # 1.3 103/ul Normal 1.2-3.[address] [facility] Comment on above: Performed By: #### C BC #### [facility] [address] [place] [address] Dr. Sherry Sanches Lymphocytes/100 WBC (Bld) 20.5 % Normal 20.5-60.[address] [facility] Comment on above: Performed By: #### C BC #### [facility] [address] [place] [address] Dr. Sherry Sanches MANUAL DIFF REQ NO Normal [facility] Comment on above: Performed By: #### C BC #### [facility] [address] [place] [address] Dr. Sherry Sanches MCH (RBC) [Entitic mass] 30.2 pg Normal 26.7-34.[address] [facility] Comment on above: Performed By: #### C BC #### [facility] [address] [place] [address] Dr. Sherry Sanches MCHC (RBC) [Mass/Vol] 32.9 g/dL Normal 29.9-35.[address] [facility] Comment on above: Performed By: #### C BC #### [facility] [address] [place] [address] Dr. Sherry Sanches MCV (RBC) [Entitic vol] 91.7 fL Normal 81.0-99.[address] [facility] Comment on above: Performed By: #### C BC #### [facility] [address] [place] [address] Dr. Sherry Sanches MONO # 0.7 103/ul Normal 0.3-0.[address] [facility] Comment on above: Performed By: #### C BC #### [facility] [address] [address] [address] Sherry Sanches Monocytes/100 WBC (Bld) 10.5 % Normal 1.7-12.[address] [facility] Comment on above: Performed By: #### C BC #### [facility] [address] [address] [address] Sherry Sanches NEUT # 4.1 103/ul Normal 1.4-6.[address] [facility] Comment on above: Performed By: #### C BC #### [facility] [address] [address] [address] Sherry Sanches Neutrophils/100 WBC (Bld) 64.9 % Normal 43.0-75.[address] [facility] Comment on above: Performed By: #### C BC #### [facility] [address] [place] [address] Dr. Sherry Sanches Platelet mean volume (Bld) [Entitic vol] 8.4 fL Critically low 9.5-13.[address] [facility] Comment on above: Performed By: #### C BC #### [facility] [address] [address] [address] Sherry Sanches PLT 270 103/ul Normal 150-[address] [facility] Comment on above: Performed By: #### C BC #### [facility] [address] [address] [address] Sherry Sanches RBC 4.11 106/ul Critically low 4.20-5.40 [facility] Comment on above: Performed By: #### C BC #### [facility] [address] [address] [address] Sherry Sanches WBC 6.4 103/ul Normal 4.0-11.[address] [facility] Comment on above: Performed By: #### C BC #### [facility] [address] [place] [address] Dr. Sherry Sanches LIPID PROFILEon 03-31-2022 CHOL-HDL RATIO NORM SEE BELOW Normal [facility] Comment on above: Result Comment: 3.3 - 4.4 LOW RISK 4.4 - 7.1 AVERAGE RISK 7.1 - 11.0 MODERATE RISK >11.0 HIGH RISK Performed By: #### C VDAGS #### [facility] [address] [address] [address] Sherry Sanches Cholesterol [Mass/Vol] 174 mg/dL Normal <=[address] [facility] Comment on above: Performed By: #### C VDAGS #### [facility] [address] [place] [address] Dr. Sherry Sanches Cholesterol in HDL [Mass/Vol] 71 mg/dL Critically high 40-[address] [facility] Comment on above: Performed By: #### C VDAGS #### [facility] [address] [place] [address] Dr. Sherry Sanches Cholesterol in LDL [Mass/Vol] 59.6 mg/dL Normal [facility] Comment on above: Performed By: #### C VDAGS #### [facility] [address] [place] [address] Dr. Sherry Sanches Cholesterol.total/Cho lesterol in HDL [Mass ratio] 2.5 {ratio} Normal [facility] Comment on above: Performed By: #### C VDAGS #### [facility] [address] [place] [address] Dr. Sherry Sanches HDL NORMAL > or = 60 mg/dl - LO W CARDIOVASCULAR RISK <40 mg/dl - HIGH CARDIOVASCULAR RISK Normal [facility] Comment on above: Performed By: #### C VDAGS #### [facility] [address] [place] [address] Dr. Sherry Sanches LDL CALC NORMAL SEE BELOW Normal [facility] Comment on above: Result Comment: <100 mg/dl OPTIMAL 100 - 129 mg/dl NEAR OR ABOVE OPTIMAL 130 - 159 mg/dl BORDERLINE HIGH 160 - 189 mg/dl HIGH >190 mg/dl VERY HIGH Performed By: #### C VDAGS #### [facility] [address] [place] [address] Dr. Sherry Sanches Triglyceride [Mass/Vol] 217 mg/dL Critically high <=[address] [facility] Comment on above: Performed By: #### C VDAGS #### [facility] [address] [address] [address] Sherry Sanches VLDL CALC 43.4 mg/dL Normal [facility] Comment on above: Performed By: #### C VDAGS #### [facility] [address] [address] [address] Sherry Sanches PROF CHEM 8 (BAS METB)on Anion gap [Moles/Vol] 13.8 mmol/L Normal [facility] Comment on above: Performed By: #### C VDAGS #### [facility] [address] [address] [address] Sherry Sanches Calcium [Mass/Vol] 9.9 mg/dL Normal 8.5-10.1 [facility] Comment on above: Performed By: #### C VDAGS #### [facility] [address] [place] [address] Dr. Sherry Sanches Chloride [Moles/Vol] 101 mmol/L Normal 98-[address] [facility] Comment on above: Performed By: #### C VDAGS #### [facility] [address] [place] [address] Dr. Sherry Sanches CO2 [Moles/Vol] 29.8 mmol/L Normal 21.0-32.0 [facility] Comment on above: Performed By: #### C VDAGS #### [facility] [address] [place] [address] Dr. Sherry Sanches Creatinine [Mass/Vol] 1.58 mg/dL Critically high 0.55-1.[address] [facility] Comment on above: Performed By: #### C VDAGS #### [facility] [address] [place] [address] Dr. Sherry Sanches EGFR-AF NIUEAN 39 mL/min/1.73m2 Critically low >=[address] [facility] Comment on above: Performed By: #### C VDAGS #### [facility] [address] [place] [address] Dr. Sherry Sanches EGFR-NON AF NIUEAN 32 mL/min/1.73m2 Critically low >=[address] [facility] Comment on above: Performed By: #### C VDAGS #### [facility] [address] [address] [address] Sherry Sanches Glucose [Mass/Vol] 115 mg/dL Critically high 74-106 [facility] Comment on above: Performed By: #### C VDAGS #### [facility] [address] [place] [address] Dr. Sherry Sanches Potassium [Moles/Vol] 4.6 mmol/L Normal 3.5-5.[address] [facility] Comment on above: Performed By: #### C VDAGS #### [facility] [address] [place] [address] Dr. Sherry Sanches Sodium [Moles/Vol] 140 mmol/L Normal 136-145 [facility] Comment on above: Performed By: #### C VDAGS #### [facility] [address] [place] [address] Dr. Sherry Sanches Urea nitrogen [Mass/Vol] 26.0 mg/dL Critically high 7.0-18.[address] [facility] Comment on above: Performed By: #### C VDAGS #### [facility] [address] [place] [address] Dr. Sherry Sanches Urea nitrogen/Creatinine [Mass ratio] 16.5 mg/mg Normal [facility] Comment on above: Performed By: #### C VDAGS #### [facility] [address] [place] [address] Dr. Sherry Sanches CBC AUTO DIFFon 02-16-2022 BASO # 0.0 103/ul Normal 0.0-0.[address] [facility] Comment on above: Performed By: #### T SH #### [facility] [address] [place] [address] Dr. Sherry Sanches Basophils/100 WBC (Bld) 0.5 % Normal 0.2-2.[address] [facility] Comment on above: Performed By: #### T SH #### [facility] [address] [place] [address] Dr. Sherry Sanches EO # 0.2 103/ul Normal 0.0-0.[address] [facility] Comment on above: Performed By: #### T SH #### [facility] [address] [address] [address] Sherry Sanches Eosinophils/100 WBC (Bld) 3.9 % Normal 0.9-7.[address] [facility] Comment on above: Performed By: #### T SH #### [facility] [address] [place] [address] Dr. hSerry Sanches Erythrocyte distribution width (RBC) [Ratio] 13.2 % Normal 11.0-15.[address] [facility] Comment on above: Performed By: #### T SH #### [facility] [address] [place] [address] Dr. Sherry Sanches Hematocrit (Bld) [Volume fraction] 31.0 % Critically low 36.0-48.[address] [facility] Comment on above: Performed By: #### T SH #### [facility] [address] [place] [address] Dr. Sherry Sanches Hemoglobin (Bld) [Mass/Vol] 9.9 g/dL Critically low 12.0-16.[address] [facility] Comment on above: Performed By: #### T SH #### [facility] [address] [place] [address] Dr. Sherry Sanches IG # 0.05 10e3/ul Critically high 0.00-0.03 [facility] Comment on above: Performed By: #### T SH #### [facility] [address] [place] [address] Dr. Sherry Sanches IG % 0.8 % Critically high 0.0-0.5 [facility] Comment on above: Performed By: #### T SH #### [facility] [address] [place] [address] Dr. Sherry Sanches LYMPH # 0.7 103/ul Critically low 1.2-3.8 [facility] Comment on above: Performed By: #### T SH #### [facility] [address] [place] [address] Dr. Sherry Sanches Lymphocytes/100 WBC (Bld) 12.0 % Critically low 20.5-60.[address] [facility] Comment on above: Performed By: #### T SH #### [facility] [address] [place] [address] Dr. Sherry Sanches MANUAL DIFF REQ NO Normal [facility] Comment on above: Performed By: #### T SH #### [facility] [address] [place] [address] Dr. Sherry Sanches MCH (RBC) [Entitic mass] 30.0 pg Normal 26.7-34.[address] [facility] Comment on above: Performed By: #### T SH #### [facility] [address] [place] [address] Dr. Sherry Sanches MCHC (RBC) [Mass/Vol] 31.9 g/dL Normal 29.9-35.[address] [facility] Comment on above: Performed By: #### T SH #### [facility] [address] [place] [address] Dr. Sherry Sanches MCV (RBC) [Entitic vol] 93.9 fL Normal 81.0-99.[address] [facility] Comment on above: Performed By: #### T SH #### [facility] [address] [place] [address] Dr. Sherry Sanches MONO # 0.8 103/ul Normal 0.3-0.[address] [facility] Comment on above: Performed By: #### T SH #### [facility] [address] [place] [address] Dr. Sherry Sanches Monocytes/100 WBC (Bld) 12.2 % Critically high 1.7-12.[address] [facility] Comment on above: Performed By: #### T SH #### [facility] [address] [place] [address] Dr. Sherry Sanches NEUT # 4.4 103/ul Normal 1.4-6.[address] [facility] Comment on above: Performed By: #### T SH #### [facility] [address] [place] [address] Dr. Sherry Sanches Neutrophils/100 WBC (Bld) 70.6 % Normal 43.0-75.[address] [facility] Comment on above: Performed By: #### T SH #### [facility] [address] [address] [address] Sherry Sanches Platelet mean volume (Bld) [Entitic vol] 9.0 fL Critically low 9.5-13.[address] [facility] Comment on above: Performed By: #### T SH #### [facility] [address] [address] [address] Sherry Sanches PLT 254 103/ul Normal 150-[address] [facility] Comment on above: Performed By: #### T SH #### [facility] [address] [address] [address] Sherry Sanches RBC 3.30 106/ul Critically low 4.20-5.40 [facility] Comment on above: Performed By: #### T SH #### [facility] [address] [place] [address] Dr. Sherry Sanches WBC 6.2 103/ul Normal 4.0-11.[address] [facility] Comment on above: Performed By: #### T SH #### [facility] [address] [place] [address] Dr. Sherry Sanches PROF CHEM 8 (BAS METB)on Anion gap [Moles/Vol] 12.0 mmol/L Normal [facility] Comment on above: Performed By: #### C VDAGS #### [facility] [address] [place] [address] Dr. Sherry Sanches Calcium [Mass/Vol] 8.1 mg/dL Critically low 8.5-10.1 [facility] Comment on above: Performed By: #### C VDAGS #### [facility] [address] [place] [address] Dr. Sherry Sanches Chloride [Moles/Vol] 102 mmol/L Normal 98-[address] [facility] Comment on above: Performed By: #### C VDAGS #### [facility] [address] [place] [address] Dr. Sherry Sanches CO2 [Moles/Vol] 30.3 mmol/L Normal 21.0-32.0 [facility] Comment on above: Performed By: #### C VDAGS #### [facility] [address] [address] [address] Sherry Sanches Creatinine [Mass/Vol] 1.85 mg/dL Critically high 0.55-1.[address] [facility] Comment on above: Performed By: #### C VDAGS #### [facility] [address] [address] [address] Sherry Sanches EGFR-AF NIUEAN 32 mL/min/1.73m2 Critically low >=[address] [facility] Comment on above: Performed By: #### C VDAGS #### [facility] [address] [address] [address] Sherry Sanches EGFR-NON AF NIUEAN 27 mL/min/1.73m2 Critically low >=[address] [facility] Comment on above: Performed By: #### C VDAGS #### [facility] [address] [address] [address] Sherry Sanches Glucose [Mass/Vol] 108 mg/dL Critically high 74-106 [facility] Comment on above: Performed By: #### C VDAGS #### [facility] [address] [address] [address] Sherry Sanches Potassium [Moles/Vol] 3.3 mmol/L Critically low 3.5-5.[address] [facility] Comment on above: Performed By: #### C VDAGS #### [facility] [address] [address] [address] Sherry Sanches Sodium [Moles/Vol] 141 mmol/L Normal 136-145 [facility] Comment on above: Performed By: #### C VDAGS #### [facility] [address] [address] [address] Sherry Sanches Urea nitrogen [Mass/Vol] 27.0 mg/dL Critically high 7.0-18.[address] [facility] Comment on above: Performed By: #### C VDAGS #### [facility] [address] [address] [address] Sherry Sanches Urea nitrogen/Creatinine [Mass ratio] 14.6 mg/mg Normal [facility] Comment on above: Performed By: #### C VDAGS #### [facility] [address] [address] [address] Sherry Sanches BNPon 02-15-2022 Natriuretic peptide B (Bld) [Mass/Vol] 1135.0 pg/mL Critically high <=900.0 [facility] Comment on above: Performed By: #### B MP, BNP ####[facility] [id number] [address]DrBita Sanches CBC AUTO DIFFon 02-15-2022 BASO # 0.0 103/ul Normal 0.0-0.1 [facility] Comment on above: Performed By: #### C BC ####[facility] [id number] [address]Dr. Sherry Sanches Basophils/100 WBC (Bld) 0.5 % Normal 0.2-2.0 [facility] Comment on above: Performed By: #### C BC ####[facility] [id number] [place], [place] [address]Dr. Sherry Sanches EO # 0.2 103/ul Normal 0.0-0.7 [facility] Comment on above: Performed By: #### C BC ####[facility] [facility] [address] [place], [place] [address]Dr. Sherry Sanches Eosinophils/100 WBC (Bld) 3.3 % Normal 0.9-7.0 [facility] Comment on above: Performed By: #### C BC ####[facility] [address] [place], [place] [address]DrBita Sanches Erythrocyte distribution width (RBC) [Ratio] 13.2 % Normal 11.0-15.0 [facility] Comment on above: Performed By: #### C BC ####[facility] C[address] [place], [place] [address]DrBita Sanches Hematocrit (Bld) [Volume fraction] 30.1 % Critically low 36.0-48.0 [facility] Comment on above: Performed By: #### C BC ####[facility] [address] [place] [id number]. Sherry Sacnhes Hemoglobin (Bld) [Mass/Vol] 9.9 g/dL Critically low 12.0-16.0 [facility] Comment on above: Performed By: #### C BC ####[facility] [address]rxmhkimnt[address] [place] [id number]. Sherry Sanches IG # 0.03 10e3/ul Normal 0.00-0.03 [facility] Comment on above: Performed By: #### C BC ####[facility] Fgjaxffecl47[address] [place] [id number]. Sherry Sanches IG % 0.5 % Normal 0.0-0.5 [facility] Comment on above: Performed By: #### C BC ####[facility] [address]lzoogwlem[address] [place] [address]Dr. Naysumi Sanches LYMPH # 0.8 103/ul Critically low 1.2-3.8 [facility] Comment on above: Performed By: #### C BC ####[facility] [address]xoqufpi[address] [place] [address]Dr. Sherry Sanches Lymphocytes/100 WBC (Bld) 13.5 % Critically low 20.5-60.0 [facility] Comment on above: Performed By: #### C BC ####[facility] Jfkrfpozwr32[address] [place] [id number]. Sherry Sanches MANUAL DIFF REQ NO Normal [facility] Comment on above: Performed By: #### C BC ####[facility] Icqcmkggti[address] [place] [address]Dr. Sherry Sanches MCH (RBC) [Entitic mass] 30.5 pg Normal 26.7-34.0 [facility] Comment on above: Performed By: #### C BC ####[facility] Nlpdogbmdz4[address] [place] [address]Dr. Sherry Sanches MCHC (RBC) [Mass/Vol] 32.9 g/dL Normal 29.9-35.2 [facility] Comment on above: Performed By: #### C BC ####[facility] [address]mqkwya[address] [place] [id number]. Sherry Sanches MCV (RBC) [Entitic vol] 92.6 fL Normal 81.0-99.0 [facility] Comment on above: Performed By: #### C BC ####[facility] Yqswpobtwf54[address] [place] [id number]. Sherry Sanches MONO # 0.8 103/ul Normal 0.3-0.8 [facility] Comment on above: Performed By: #### C BC ####[facility] Kqu[address]zygug[address] [place] [id number]. Sherry Sanches Monocytes/100 WBC (Bld) 14.3 % Critically high 1.7-12.0 [facility] Comment on above: Performed By: #### C BC ####[facility] [address] [place], [place] [id number]. Sherry Sanches NEUT # 3.9 103/ul Normal 1.4-6.5 [facility] Comment on above: Performed By: #### C BC ####[facility] Irojtyfler[address]2 [place] [id number]. Sherry Sanches Neutrophils/100 WBC (Bld) 67.9 % Normal 43.0-75.0 [facility] Comment on above: Performed By: #### C BC ####[facility] Klijhygctl6403 [place] [id number]. Sherry Sanches Platelet mean volume (Bld) [Entitic vol] 9.2 fL Critically low 9.5-13.5 [facility] Comment on above: Performed By: #### C BC ####[facility] Tsjcyujetu[address] [place] [id number]. Sherry Sanches PLT 242 103/ul Normal 150-450 [facility] Comment on above: Performed By: #### C BC ####[facility] Fogdbjeqkr2803 [place] [id number]. Sherry Sanches RBC 3.25 106/ul Critically low 4.20-5.[address] [facility] Comment on above: Performed By: #### C BC ####[facility] Uguxppvawx8934 [place] [id number]. Sherry Sanches WBC 5.8 103/ul Normal 4.0-11.[address] [facility] Comment on above: Performed By: #### C BC ####[facility] Wlituhvllg[address] [place] [address]Dr. Sherry Sanches PROF CHEM 8 (BAS METB)on Anion gap [Moles/Vol] 11.6 mmol/L Normal [facility] Comment on above: Performed By: #### H STROPN #### [facility] [address] [place] [address] [address] Sherry Sanches Calcium [Mass/Vol] 8.1 mg/dL Critically low 8.5-10.1 [facility] Comment on above: Performed By: #### H STROPN #### [facility] [address] [place] [address] [address] Sherry Sanches Chloride [Moles/Vol] 102 mmol/L Normal 98-[address] [facility] Comment on above: Performed By: #### H STROPN #### [facility] [address] [place] [address] [address] Sherry Sanches Performed By: #### B MP, BNP ####[facility] Mkrgmqigbn75[address] [place] [address]Dr. Sherry aSnches CO2 [Moles/Vol] 28.8 mmol/L Normal 21.0-32.0 [facility] Comment on above: Performed By: #### H STROPN #### [facility] [address] [place] [address] [address] Sherry Sanches Creatinine [Mass/Vol] 2.04 mg/dL Critically high 0.55-1.[address] [facility] Comment on above: Performed By: #### H STROPN #### [facility] [address] [place] [address] [address] Sherry Sanches EGFR-AF NIUEAN 29 mL/min/1.73m2 Critically low >=[address] [facility] Comment on above: Performed By: #### H STROPN #### [facility] [address] [place] [address] [address] Sherry Sanches EGFR-NON AF NIUEAN 24 mL/min/1.73m2 Critically low >=[address] [facility] Comment on above: Performed By: #### H STROPN #### [facility] [address] [place] [address] [address] Sherry Sanches Glucose [Mass/Vol] 99 mg/dL Normal 74-106 [facility] Comment on above: Performed By: #### H STROPN #### [facility] [address] [place] [address] [address] Sherry Sanches Potassium [Moles/Vol] 3.4 mmol/L Critically low 3.5-5.[address] [facility] Comment on above: Performed By: #### H STROPN #### [facility] [address] [place] [address] [address] Sherry Sanches Sodium [Moles/Vol] 139 mmol/L Normal 136-145 [facility] Comment on above: Performed By: #### H STROPN #### [facility] [address] [place] [address] [address] Sherry Sanches Performed By: #### B MP, BNP ####[facility] [address]vbfgb[address] [place] [address]Dr. Sherry Sanches Urea nitrogen [Mass/Vol] 32.0 mg/dL Critically high 7.0-18.[address] [facility] Comment on above: Performed By: #### H STROPN #### [facility] [address] [place] [address] [address] Sherry Sanches Urea nitrogen/Creatinine [Mass ratio] 15.7 mg/mg Normal [facility] Comment on above: Performed By: #### H STROPN #### [facility] [address] [place] [address] [address] Sherry Sanches Anion gap [Moles/Vol] 10.7 mmol/L Normal [facility] Comment on above: Performed By: #### B MP, BNP ####[facility] Colmiqfilm[address] [place] [address]Dr. Sherry Sanches Calcium [Mass/Vol] 8.3 mg/dL Critically low 8.5-10.1 [facility] Comment on above: Performed By: #### B MP, BNP ####[facility] Wnhkejbfsk87[address] [place] [address]Dr. Sherry Sanches CO2 [Moles/Vol] 29.5 mmol/L Normal 21.0-32.0 [facility] Comment on above: Performed By: #### B MP, BNP ####[facility] Nqmyxkpusk8408 [place] [address]Dr. Sherry Sanches Creatinine [Mass/Vol] 2.20 mg/dL Critically high 0.55-1.[address] [facility] Comment on above: Performed By: #### B MP, BNP ####[facility] [address]sek[address] [place], [place] [address]Dr. Sherry Sanches EGFR-AF NIUEAN 27 mL/min/1.73m2 Critically low >=[address] [facility] Comment on above: Performed By: #### B MP, BNP ####[facility] [address]kb[address] [place], [place] [address]Dr. Sherry Sanches EGFR-NON AF NIUEAN 22 mL/min/1.73m2 Critically low >=[address] [facility] Comment on above: Performed By: #### B MP, BNP ####[facility] [address]uxr[address] [place], [place] [address]Dr. Sherry Sanches Glucose [Mass/Vol] 98 mg/dL Normal 74-106 [facility] Comment on above: Performed By: #### B MP, BNP ####[facility] [address] [place], [place] [address]Dr. Sherry Sanches Potassium [Moles/Vol] 3.2 mmol/L Critically low 3.5-5.[address] [facility] Comment on above: Performed By: #### B MP, BNP ####[facility] [address] [place], [place] [address]Dr. Sherry Sanches Urea nitrogen [Mass/Vol] 33.0 mg/dL Critically high 7.0-18.[address] [facility] Comment on above: Performed By: #### B MP, BNP ####[facility] [address] [place], [place] [address]Dr. Sherry Sanches Urea nitrogen/Creatinine [Mass ratio] 15.0 mg/mg Normal [facility] Comment on above: Performed By: #### B MP, BNP ####[facility] [address]fem[address] [place] [address]Dr. Sherry Sanches BNPon 02-14-2022 Natriuretic peptide B (Bld) [Mass/Vol] 1291.0 pg/mL Critically high <=900.0 [facility] Comment on above: Performed By: #### C VDAGS #### [facility] [address] [place] [address] Dr. Sherry Sanches CBC AUTO DIFFon 02-14-2022 BASO # 0.0 103/ul Normal 0.0-0.[address] [facility] Comment on above: Performed By: #### T SH #### [facility] [address] [place] [address] Dr. Sherry Sanches Basophils/100 WBC (Bld) 0.5 % Normal 0.2-2.[address] [facility] Comment on above: Performed By: #### T SH #### [facility] [address] [place] [address] Dr. Sherry Sanches EO # 0.3 103/ul Normal 0.0-0.[address] [facility] Comment on above: Performed By: #### T SH #### [facility] [address] [place] [address] Dr. Sherry Sanches Eosinophils/100 WBC (Bld) 4.5 % Normal 0.9-7.0 [facility] Comment on above: Performed By: #### T SH #### [facility] [address] [place] [address] Dr. Sherry Sanches Erythrocyte distribution width (RBC) [Ratio] 13.2 % Normal 11.0-15.0 [facility] Comment on above: Performed By: #### T SH #### [facility] [address] [place] [address] Dr. Sherry Sanches Hematocrit (Bld) [Volume fraction] 31.1 % Critically low 36.0-48.0 [facility] Comment on above: Performed By: #### T SH #### [facility] [address] [place] [address] Dr. Sherry Sanches Hemoglobin (Bld) [Mass/Vol] 10.1 g/dL Critically low 12.0-16.[address] [facility] Comment on above: Performed By: #### T SH #### [facility] [address] [place] [address] Dr. Sherry Sanches IG # 0.03 10e3/ul Normal 0.00-0.[address] [facility] Comment on above: Performed By: #### T SH #### [facility] [address] [place] [address] Dr. Sherry Sanches IG % 0.5 % Normal 0.0-0.[address] [facility] Comment on above: Performed By: #### T SH #### [facility] [address] [place] [address] Dr. Sherry Sanches LYMPH # 0.8 103/ul Critically low 1.2-3.8 [facility] Comment on above: Performed By: #### T SH #### [facility] [address] [place] [address] Dr. Sherry Sanches Lymphocytes/100 WBC (Bld) 13.1 % Critically low 20.5-60.[address] [facility] Comment on above: Performed By: #### T SH #### [facility] [address] [place] [address] Dr. Sherry Sanches MANUAL DIFF REQ NO Normal [facility] Comment on above: Performed By: #### T SH #### [facility] [address] [place] [address] Dr. Sherry Sanches MCH (RBC) [Entitic mass] 30.1 pg Normal 26.7-34.0 [facility] Comment on above: Performed By: #### T SH #### [facility] [address] [place] [address] Dr. Sherry Sanches MCHC (RBC) [Mass/Vol] 32.5 g/dL Normal 29.9-35.2 [facility] Comment on above: Performed By: #### T SH #### [facility] [address] [place] [address] [address] Sherry Sanches MCV (RBC) [Entitic vol] 92.8 fL Normal 81.0-99.0 [facility] Comment on above: Performed By: #### T SH #### [facility] [address] [place] [address] [address] Sherry Sanches MONO # 0.9 103/ul Critically high 0.3-0.[address] [facility] Comment on above: Performed By: #### T SH #### [facility] [address] [place] [address] Dr. Sherry Sanches Monocytes/100 WBC (Bld) 14.4 % Critically high 1.7-12.[address] [facility] Comment on above: Performed By: #### T SH #### [facility] [address] [place] [address] Dr. Sherry Sanches NEUT # 4.2 103/ul Normal 1.4-6.[address] [facility] Comment on above: Performed By: #### T SH #### [facility] [address] [place] [address] Dr. Sherry Sanches Neutrophils/100 WBC (Bld) 67.0 % Normal 43.0-75.[address] [facility] Comment on above: Performed By: #### T SH #### [facility] [address] [place] [address] Dr. Sherry Sanches Platelet mean volume (Bld) [Entitic vol] 9.2 fL Critically low 9.5-13.[address] [facility] Comment on above: Performed By: #### T SH #### [facility] [address] [place] [address] Dr. Sherry Sanches PLT 239 103/ul Normal 150-450 [facility] Comment on above: Performed By: #### T SH #### [facility] [address] [place] [address] Dr. Sherry Sanches RBC 3.35 106/ul Critically low 4.20-5.[address] [facility] Comment on above: Performed By: #### T SH #### [facility] [address] [place] [address] [address] [address] Sherry Sanches WBC 6.3 103/ul Normal 4.0-11.[address] [facility] Comment on above: Performed By: #### T #### [facility] [address] [place], [place] [address] Dr. Sherry Sanches ECHOCARDIO M/2D COMPLETEon 1 ECHOCARDIO M/2D COMPLETE Patient: DIANN LINDER Exam Date: 02/14/2022 : 1950 Gender:F Ordering : DR KAYLA ARELLANO . Admission #: [id number] Family : FER MCKENNA . Order #: [id number] CLICK HERE TO VIEW EXAM ECHOCARDIOGRAM REPORT [...] M.D. on 02/18/2022 at 08:[address] [facility] PROF CHEM 8 (BAS METB)on Anion gap [Moles/Vol] 10.2 mmol/L Normal [facility] Comment on above: Performed By: #### H STROPN #### [facility] [address] [place] [address] [address] Sherry Sanches Calcium [Mass/Vol] 8.4 mg/dL Critically low 8.5-10.1 [facility] Comment on above: Performed By: #### H STROPN #### [facility] [address] [place] [address] [address] Sherry Sanches Chloride [Moles/Vol] 101 mmol/L Normal 98-[address] [facility] Comment on above: Performed By: #### H STROPN #### [facility] [address] [place] [address] [address] Sherry Sanches CO2 [Moles/Vol] 28.4 mmol/L Normal 21.0-32.0 [facility] Comment on above: Performed By: #### H STROPN #### [facility] [address] [place] [address] [address] Sherry Sanches Creatinine [Mass/Vol] 2.13 mg/dL Critically high 0.55-1.[address] [facility] Comment on above: Performed By: #### H STROPN #### [facility] [address] [place] [address] [address] Sherry Sanches EGFR-AF NIUEAN 28 mL/min/1.73m2 Critically low >=[address] [facility] Comment on above: Performed By: #### H STROPN #### [facility] [address] [place] [address] [address] Sherry Sanches EGFR-NON AF NIUEAN 23 mL/min/1.73m2 Critically low >=[address] [facility] Comment on above: Performed By: #### H STROPN #### [facility] [address] [place] [address] [address] Sherry Sanches Glucose [Mass/Vol] 100 mg/dL Normal 74-106 [facility] Comment on above: Performed By: #### H STROPN #### [facility] [address] [place] [address] [address] Sherry Sanches Potassium [Moles/Vol] 3.6 mmol/L Normal 3.5-5.[address] [facility] Comment on above: Performed By: #### H STROPN #### [facility] [address] [place] [address] [address] Sherry Sanches Sodium [Moles/Vol] 136 mmol/L Normal 136-145 [facility] Comment on above: Performed By: #### H STROPN #### [facility] [address] [place] [address] [address] Sherry Sanches Urea nitrogen [Mass/Vol] 31.0 mg/dL Critically high 7.0-18.[address] [facility] Comment on above: Performed By: #### H STROPN #### [facility] [address] [place] [address] [address] Sherry Sanches Urea nitrogen/Creatinine [Mass ratio] 14.6 mg/mg Normal [facility] Comment on above: Performed By: #### H STROPN #### [facility] [address] [place] [address] Dr. Sherry Sanches BNPon 02-13-2022 Natriuretic peptide B (Bld) [Mass/Vol] 1047.0 pg/mL Critically high <=900.[address] [facility] Comment on above: Performed By: #### C BC #### [facility] [address] [place] [address] [address] Sherry Sanches CBC AUTO DIFFon 02-13-2022 BASO # 0.0 103/ul Normal 0.0-0.[address] [facility] Comment on above: Performed By: #### C BC ####[facility] [address] [place] [address]DrBita Sanches Basophils/100 WBC (Bld) 0.4 % Normal 0.2-2.[address] [facility] Comment on above: Performed By: #### C BC ####[facility] [address]ir[address] [place] [address]DrBita Sanches EO # 0.2 103/ul Normal 0.0-0.[address] [facility] Comment on above: Performed By: #### C BC ####[facility] [address]fr[address]zejauu[address] [place] [address]DrBita Sanches Eosinophils/100 WBC (Bld) 2.9 % Normal 0.9-7.0 [facility] Comment on above: Performed By: #### C BC ####[facility] [address]xcl[address] [place] [address]Dr. Sherry Sanches Erythrocyte distribution width (RBC) [Ratio] 13.2 % Normal 11.0-15.[address] [facility] Comment on above: Performed By: #### C BC ####[facility] [address]ych[address] [place] [address]Dr. Sherry Sanches Hematocrit (Bld) [Volume fraction] 32.6 % Critically low 36.0-48.[address] [facility] Comment on above: Performed By: #### C BC ####[facility] [address]to[address]is[address] [place], [place] [address]Dr. Sherry Sanches Hemoglobin (Bld) [Mass/Vol] 10.8 g/dL Critically low 12.0-16.[address] [facility] Comment on above: Performed By: #### C BC ####[facility] [address] [place], [place] [address]Dr. Sherry Sanches IG # 0.03 10e3/ul Normal 0.00-0.[address] [facility] Comment on above: Performed By: #### C BC ####[facility] [address]xescs[address] [place], [place] [address]Dr. Sherry Sanches IG % 0.4 % Normal 0.0-0.[address] [facility] Comment on above: Performed By: #### C BC ####[facility] [address]qfr[address] [place], [place] [address]Dr. Sherry Sanches LYMPH # 0.8 103/ul Critically low 1.2-3.8 [facility] Comment on above: Performed By: #### C BC ####[facility] [address]fp[address]us[address] [place], [place] [address]Dr. Sherry Sanches Lymphocytes/100 WBC (Bld) 10.4 % Critically low 20.5-60.[address] [facility] Comment on above: Performed By: #### C BC ####[facility] [address]vrwpqd[address] [place], [place] [address]Dr. Sherry Josue MANUAL DIFF REQ NO Normal [facility] Comment on above: Performed By: #### C BC ####[facility] [address]xyxhrz86[address] [place] [id number] Sanches MCH (RBC) [Entitic mass] 30.7 pg Normal 26.7-34.0 [facility] Comment on above: Performed By: #### C BC ####[facility] [address]clbmlbavg[address] [place] [address]Dr. Sherry Sanches MCHC (RBC) [Mass/Vol] 33.1 g/dL Normal 29.9-35.2 [facility] Comment on above: Performed By: #### C BC ####[facility] [address]jxwslnun6[address] [place] [address]DrBita Sanches MCV (RBC) [Entitic vol] 92.6 fL Normal 81.0-99.0 [facility] Comment on above: Performed By: #### C BC ####[facility] [address]lb[address] [place], [place] [address]DrBita Sanches MONO # 1.0 103/ul Critically high 0.3-0.[address] [facility] Comment on above: Performed By: #### C BC ####[facility] Xaiyynpeka[address] [place], [place] [address]DrBita Sanches Monocytes/100 WBC (Bld) 14.2 % Critically high 1.7-12.0 [facility] Comment on above: Performed By: #### C BC ####[facility] Ivdyxuwatr[address] [place], [place] [address]DrBita Sanches NEUT # 5.3 103/ul Normal 1.4-6.5 [facility] Comment on above: Performed By: #### C BC ####[facility] Xppkepeoey[address] [place], [place] [address]DrBita Sanches Neutrophils/100 WBC (Bld) 71.7 % Normal 43.0-75.0 [facility] Comment on above: Performed By: #### C BC ####[facility] [address]imuapil[address] [place], [place] [address]DrBita Sanches Platelet mean volume (Bld) [Entitic vol] 9.3 fL Critically low 9.5-13.5 [facility] Comment on above: Performed By: #### C BC ####[facility] [address] [place], [place] [address]Ei. Sherry Sanches PLT 245 103/ul Normal 150-450 [facility] Comment on above: Performed By: #### C BC ####[facility] [address]azhp54[address] [place], [place] [address]Dv. Sherry Sanches RBC 3.52 106/ul Critically low 4.20-5.[address] [facility] Comment on above: Performed By: #### C BC ####[facility] Aw[address]ruplyr[address] [place], [place] [address]Bc. Sherry Sanches WBC 7.3 103/ul Normal 4.0-11.0 [facility] Comment on above: Performed By: #### C BC ####[facility] Cfvzntagsf[address] [place], [place] [address]Ve. Sherry Sanches Covid-19 PCR (CVDTB)on SARS-CoV-2 (COVID-19) RNA GABE+probe Ql (Unsp spec) Not detected Normal NOT DETECTED [facility] Comment on above: Result Comment: When diagnostic [...] for this test is supported by the [place] of [employer] and Human Service's declaration that [...] used). Performed By: #### H STROPN #### [facility] [address] [place] [address] Dr. Sherry Sanches LIPASEon 02-13-2022 Lipase [Catalytic activity/Vol] 84.0 U/L Normal 73.0-393.[address] [facility] Comment on above: Performed By: #### C BC #### [facility] [address] [place] [address] Dr. Sherry Sanches PROF 14(COMP METB)on 022 Albumin [Mass/Vol] 3.7 g/dL Normal 3.4-5.0 [facility] Comment on above: Performed By: #### C BC #### [facility] [address] [place] [address] Dr. Sherry Sanches Albumin/Globulin [Mass ratio] 0.9 {ratio} Normal [facility] Comment on above: Performed By: #### C BC #### [facility] [address] [place] [address] Dr. Sherry Sanches ALP [Catalytic activity/Vol] 103 U/L Normal 46-[address] [facility] Comment on above: Performed By: #### C BC #### [facility] [address] [place] [address] Dr. Sherry Sanches ALT [Catalytic activity/Vol] 15 U/L Normal 14-[address] [facility] Comment on above: Performed By: #### C BC #### [facility] [address] [place] [address] Dr. Sherry Sanches Anion gap [Moles/Vol] 12.0 mmol/L Normal [facility] Comment on above: Performed By: #### C BC #### [facility] [address] [place] [address] Dr. Sherry Sanches AST [Catalytic activity/Vol] 18 U/L Normal 15-[address] [facility] Comment on above: Performed By: #### C BC #### [facility] [address] [place] [address] Dr. Sherry Sanches Bilirubin [Mass/Vol] 0.9 mg/dL Normal 0.2-1.[address] [facility] Comment on above: Performed By: #### C BC #### [facility] [address] [address] [address] Sherry Sanches Calcium [Mass/Vol] 8.9 mg/dL Normal 8.5-10.1 [facility] Comment on above: Performed By: #### C BC #### [facility] [address] [address] [address] Sherry Sanches Chloride [Moles/Vol] 98 mmol/L Normal 98-[address] [facility] Comment on above: Performed By: #### C BC #### [facility] [address] [address] [address] Sherry Sanches CO2 [Moles/Vol] 27.6 mmol/L Normal 21.0-32.0 [facility] Comment on above: Performed By: #### C BC #### [facility] [address] [place] [address] Dr. Sherry Sanches Creatinine [Mass/Vol] 2.22 mg/dL Critically high 0.55-1.[address] [facility] Comment on above: Performed By: #### C BC #### [facility] [address] [place] [address] Dr. Sherry Sanches EGFR-AF NIUEAN 26 mL/min/1.73m2 Critically low >=[address] [facility] Comment on above: Performed By: #### C BC #### [facility] [address] [place] [address] Dr. Sherry Sanches EGFR-NON AF NIUEAN 22 mL/min/1.73m2 Critically low >=[address] [facility] Comment on above: Performed By: #### C BC #### [facility] [address] [place] [address] Dr. Sherry Sanches Globulin (S) [Mass/Vol] 3.9 g/dL Normal [facility] Comment on above: Performed By: #### C BC #### [facility] [address] [place] [address] Dr. Sherry Sanches Glucose [Mass/Vol] 116 mg/dL Critically high 74-106 [facility] Comment on above: Performed By: #### C BC #### [facility] [address] [place] [address] Dr. Sherry Sanches Potassium [Moles/Vol] 3.6 mmol/L Normal 3.5-5.[address] [facility] Comment on above: Performed By: #### C BC #### [facility] [address] [address] [address] Sherry Sanches Protein [Mass/Vol] 7.6 g/dL Normal 6.4-8.2 [facility] Comment on above: Performed By: #### C BC #### [facility] [address] [address] [address] Sherry Sanches Sodium [Moles/Vol] 134 mmol/L Critically low 136-145 Th [facility] Comment on above: Performed By: #### C BC #### [facility] [address] [place] [address] Dr. Sherry Sanches Urea nitrogen [Mass/Vol] 32.0 mg/dL Critically high 7.0-18.[address] [facility] Comment on above: Performed By: #### C BC #### [facility] [address] [place] [address] Dr. Sherry Sanches Urea nitrogen/Creatinine [Mass ratio] 14.4 mg/mg Normal [facility] Comment on above: Performed By: #### C BC #### [facility] [address] [place] [address] Dr. Sherry Sanches PROTIMEon 02-13-2022 INR Coag (PPP) [Relative time] 1.02 {INR} Normal [facility] Comment on above: Performed By: #### C VDAGS #### [facility] [address] [place] [address] Dr. Sherry Sanches INR GUIDELINES SEE BELOW Normal [facility] Comment on above: Result Comment: SARAH RED INR: 2.0 - 3.0 CONDITIONS NOT LISTED BELOW 2.5 - 3.5 FOR PROSTHETIC HEART VALVE REPLACEMENT 2.5 - 3.5 RECURRENT THROMBOSIS Performed By: #### C VDAGS #### [facility] [address] [place] [address] Dr. Sherry Sanches PT Coag (PPP) [Time] 11.0 s Normal 9.0-11.[address] [facility] Comment on above: Performed By: #### C VDAGS #### [facility] [address] [address] [address] Sherry Sanches PTTon 02-13-2022 aPTT Coag (Bld) [Time] 28.0 s Normal 22.3-36.2 [facility] Comment on above: Performed By: #### C VDAGS #### [facility] [address] [address] [address] Sherry Sanches TROPONIN, HIGH SENSITIVITYon 02-13-2022 HSTROP 7.4 pg/mL Normal 4.0-51.[address] [facility] Comment on above: Result Comment: CUT- OFF POINTS HAVE BEEN ESTABLISHED BASED ON THE FOURTH UNIVERSAL DEFINITIONS OF MYOCARDIAL INFARCTION. THE UPPER REFERENCE LIMIT (URL) OF TROPONIN, DEFINED THE 99TH PERCENTILE OF cTnI DISTRIBUTION IN A REFERENCE POPULATION, HAS BEEN CONFIRMED THE DECISION THRESHOLD FOR OR DIAGNOSIS. Performed By: #### H STROPN ####[facility] [id number] [address]Dr. Sherry Sanches HSTROP 6.3 pg/mL Normal 4.0-51.[address] [facility] Comment on above: Result Comment: CUT- OFF POINTS HAVE BEEN ESTABLISHED BASED ON THE FOURTH UNIVERSAL DEFINITIONS OF MYOCARDIAL INFARCTION. THE UPPER REFERENCE LIMIT (URL) OF TROPONIN, DEFINED THE 99TH PERCENTILE OF cTnI DISTRIBUTION IN A REFERENCE POPULATION, HAS BEEN CONFIRMED THE DECISION THRESHOLD FOR OR DIAGNOSIS. Performed By: #### H LUDIVINAPN #### [facility] [address] [place] [address] Dr. Sherry Sanches HSTROP 6.3 pg/mL Normal 4.0-51.3 [facility] Comment on above: Result Comment: CUT- OFF POINTS HAVE BEEN ESTABLISHED BASED ON THE FOURTH UNIVERSAL DEFINITIONS OF MYOCARDIAL INFARCTION. THE UPPER REFERENCE LIMIT (URL) OF TROPONIN, DEFINED THE 99TH PERCENTILE OF cTnI DISTRIBUTION IN A REFERENCE POPULATION, HAS BEEN CONFIRMED THE DECISION THRESHOLD FOR OR DIAGNOSIS. Performed By: #### C BC #### [facility] [address] [address] [address] Sherry Sanches XR CHEST 1 Von [...] ANA MILLS Date: 2022-02-13 18:[address] [facility] CREATININEon 01-10-2022 Creatinine [Mass/Vol] 1.05 mg/dL Critically high 0.55-1.[address] [facility] Comment on above: Performed By: #### T SH #### [facility] [address] [address] [address] Sherry Sanches EGFR-AF NIUEAN >60 Normal >=60 [facility] Comment on above: Performed By: #### T SH #### [facility] [address] [address] [address] Sherry Sanches EGFR-NON AF NIUEAN 52 mL/min/1.73m2 Critically low >=[address] [facility] Comment on above: Performed By: #### T SH #### [facility] [address] [address] [address] ABD/PELV WO W [...] by: LONNIE MCCORMACK Date: 2022-01-10 14:[address] [facility] XR KUB 1 VIEWon 01-07-2022 XR KUB [...] HOWARD POST Date: 2022-01-07 15:17 Normal [facility] CBC AUTO DIFFon 12-17-2021 BASO # 0.0 103/ul Normal 0.0-0.[address] [facility] Comment on above: Performed By: #### T SH #### [facility] [address] [address] [address] Sherry Sanches Basophils/100 WBC (Bld) 0.7 % Normal 0.2-2.[address] [facility] Comment on above: Performed By: #### T SH #### [facility] [address] [address] [address] Sherry Sanches EO # 0.2 103/ul Normal 0.0-0.[address] [facility] Comment on above: Performed By: #### T SH #### [facility] [address] [place] [address] Dr. Sherry Sanches Eosinophils/100 WBC (Bld) 5.5 % Normal 0.9-7.[address] [facility] Comment on above: Performed By: #### T SH #### [facility] [address] [place] [address] Dr. Sherry Sanches Erythrocyte distribution width (RBC) [Ratio] 16.5 % Critically high 11.0-15.[address] [facility] Comment on above: Performed By: #### T SH #### [facility] [address] [place] [address] Dr. Sherry Sanches Hematocrit (Bld) [Volume fraction] 37.7 % Normal 36.0-48.[address] [facility] Comment on above: Performed By: #### T SH #### [facility] [address] [place] [address] Dr. Sherry Sanches Hemoglobin (Bld) [Mass/Vol] 12.0 g/dL Normal 12.0-16.[address] [facility] Comment on above: Performed By: #### T SH #### [facility] [address] [place] [address] Dr. Sherry Sanches IG # 0.01 10e3/ul Normal 0.00-0.03 [facility] Comment on above: Performed By: #### T SH #### [facility] [address] [place] [address] Dr. Sherry Sanches IG % 0.2 % Normal 0.0-0.5 [facility] Comment on above: Performed By: #### T SH #### [facility] [address] [place] [address] Dr. Sherry Sanches LYMPH # 0.9 103/ul Critically low 1.2-3.8 [facility] Comment on above: Performed By: #### T SH #### [facility] [address] [place] [address] Dr. Sherry Sanches Lymphocytes/100 WBC (Bld) 21.3 % Normal 20.5-60.[address] [facility] Comment on above: Performed By: #### T SH #### [facility] [address] [place] [address] Dr. Sherry Sanches MANUAL DIFF REQ NO Normal [facility] Comment on above: Performed By: #### T SH #### [facility] [address] [place] [address] Dr. Sherry Sanches MCH (RBC) [Entitic mass] 29.0 pg Normal 26.7-34.[address] [facility] Comment on above: Performed By: #### T SH #### [facility] [address] [place] [address] Dr. Sherry Sanches MCHC (RBC) [Mass/Vol] 31.8 g/dL Normal 29.9-35.[address] [facility] Comment on above: Performed By: #### T SH #### [facility] [address] [place] [address] Dr. Sherry Sanches MCV (RBC) [Entitic vol] 91.1 fL Normal 81.0-99.[address] [facility] Comment on above: Performed By: #### T SH #### [facility] [address] [place] [address] Dr. Sherry Sanches MONO # 0.6 103/ul Normal 0.3-0.[address] [facility] Comment on above: Performed By: #### T SH #### [facility] [address] [place] [address] Dr. Sherry Sanches Monocytes/100 WBC (Bld) 15.4 % Critically high 1.7-12.[address] [facility] Comment on above: Performed By: #### T SH #### [facility] [address] [place] [address] Dr. Sherry Sanches NEUT # 2.3 103/ul Normal 1.4-6.5 [facility] Comment on above: Performed By: #### T SH #### [facility] [address] [place] [address] Dr. Sherry Sanches Neutrophils/100 WBC (Bld) 56.9 % Normal 43.0-75.0 [facility] Comment on above: Performed By: #### T SH #### [facility] [address] [address] [address] Sherry Sanches Platelet mean volume (Bld) [Entitic vol] 9.2 fL Critically low 9.5-13.[address] [facility] Comment on above: Performed By: #### T SH #### [facility] [address] [address] [address] Sherry Sanches PLT 208 103/ul Normal 150-450 [facility] Comment on above: Performed By: #### T SH #### [facility] [address] [address] [address] Sherry Sanches RBC 4.14 106/ul Critically low 4.20-5.40 [facility] Comment on above: Performed By: #### T SH #### [facility] [address] [address] [address] Sherry Sanches WBC 4.0 103/ul Normal 4.0-11.[address] [facility] Comment on above: Performed By: #### T SH #### [facility] [address] [address] [address] Sherry Sanches IRONon 12-17-2021 Iron [Mass/Vol] 61.0 ug/dL Normal 50.0-170.0 [facility] Comment on above: Performed By: #### H STRO #### [facility] [address] [place] [address] Dr. Sherry Sanches CHEMISTRYOrdered By: SYSTEM SYSTEM on 10-31-2021 Anion gap [Moles/Vol] 13 mmol/L Normal 6 - 16 mEq/L F [facility] Calcium [Mass/Vol] 8.9 mg/dL Normal 8.9 [...] 117 mg/dL Normal 55 - 199 mg/dL [facility] Potassium [Moles/Vol] 4.0 mmol/L Normal 3.5 [...] Ql (Bld) Present (10/31/21 5:56 PM) Normal [facility] HemeManSS Erythrocyte distribution width (RBC) [Ratio] 22.8 [...] 84.7 fL Normal 80.0 - 100.0 fL [facility] HemeAutoSS Morphology Jesse (Bld) [Interp] See Morphology (10/31/21 5:56 PM) Normal [facility] HemeManSS Platelet mean volume (Bld) [Entitic vol] 7.9 fL Normal 6.4 - 10.8 fL [facility] HemeAutoSS Platelets (Bld) [#/Vol] 348.0 E9/L Normal [...] PM) Normal Negative [facility] UA Auto SS [place].plasma/Lithiu m.RBC (Bld) [Mass ratio] 4-20 /HPF Normal [...] [facility] UA Auto SS Urobilinogen Qn (U) [id number] {Ellen'U}/dL Normal 0.0 - 1.0 EU/dL [facility] UA Auto SS WBC Auto Ql (U) Trace *ABN* (10/31/21 5:56 PM) Invalid Interpretation Code Negative [facility] UA Auto SS WBC LM.HPF (Urine sed) [#/Area] /[HPF] Invalid Interpretation Code 0-5/HPF [facility] UA Auto SS CBC AUTO DIFFon 10-25-2021 BASO # 0.0 103/ul Normal 0.0-0.[address] [facility] Comment on above: Performed By: #### T SH #### [facility] [address] [place] [address] Dr. Sherry Sanches Basophils/100 WBC (Bld) 0.1 % Critically low 0.2-2.[address] [facility] Comment on above: Performed By: #### T SH #### [facility] [address] [place] [address] Dr. Sherry Sanches EO # 0.0 103/ul Normal 0.0-0.[address] [facility] Comment on above: Performed By: #### T SH #### [facility] [address] [place] [address] Dr. Sherry Sanches Eosinophils/100 WBC (Bld) 0.1 % Critically low 0.9-7.[address] [facility] Comment on above: Performed By: #### T SH #### [facility] [address] [place] [address] Dr. Sherry Sanches Erythrocyte distribution width (RBC) [Ratio] 20.9 % Critically high 11.0-15.[address] [facility] Comment on above: Performed By: #### T SH #### [facility] [address] [place] [address] Dr. Sherry Sanches Hematocrit (Bld) [Volume fraction] 32.1 % Critically low 36.0-48.[address] [facility] Comment on above: Performed By: #### T SH #### [facility] [address] [place] [address] Dr. Sherry Sanches Hemoglobin (Bld) [Mass/Vol] 9.9 g/dL Critically low 12.0-16.[address] [facility] Comment on above: Performed By: #### T SH #### [facility] [address] [place] [address] Dr. Sherry Sanches IG # 0.04 10e3/ul Critically high 0.00-0.03 [facility] Comment on above: Performed By: #### T SH #### [facility] [address] [place] [address] Dr. Sherry Sanches IG % 0.5 % Normal 0.0-0.[address] [facility] Comment on above: Performed By: #### T SH #### [facility] [address] [place] [address] Dr. Sherry Sanches LYMPH # 1.1 103/ul Critically low 1.2-3.8 [facility] Comment on above: Performed By: #### T SH #### [facility] [address] [place] [address] Dr. Sherry Sanches Lymphocytes/100 WBC (Bld) 12.3 % Critically low 20.5-60.[address] [facility] Comment on above: Performed By: #### T SH #### [facility] [address] [place] [address] Dr. Sherry Sanches MANUAL DIFF REQ NO Normal [facility] Comment on above: Performed By: #### T SH #### [facility] [address] [place] [address] Dr. Sherry Sanches MCH (RBC) [Entitic mass] 27.3 pg Normal 26.7-34.[address] [facility] Comment on above: Performed By: #### T SH #### [facility] [address] [place] [address] Dr. Sherry Sanches MCHC (RBC) [Mass/Vol] 30.8 g/dL Normal 29.9-35.[address] [facility] Comment on above: Performed By: #### T SH #### [facility] [address] [place] [address] Dr. Sherry Sanches MCV (RBC) [Entitic vol] 88.4 fL Normal 81.0-99.[address] [facility] Comment on above: Performed By: #### T SH #### [facility] [address] [place] [address] Dr. Sherry Sanches MONO # 1.0 103/ul Critically high 0.3-0.8 [facility] Comment on above: Performed By: #### T SH #### [facility] [address] [address] [address] Sherry Sanches Monocytes/100 WBC (Bld) 11.6 % Normal 1.7-12.[address] [facility] Comment on above: Performed By: #### T SH #### [facility] [address] [address] [address] Sherry Sanches NEUT # 6.4 103/ul Normal 1.4-6.[address] [facility] Comment on above: Performed By: #### T SH #### [facility] [address] [address] [address] Sherry Sanches Neutrophils/100 WBC (Bld) 75.4 % Critically high 43.0-75.[address] [facility] Comment on above: Performed By: #### T SH #### [facility] [address] [place] [address] Dr. Sherry Sanches Platelet mean volume (Bld) [Entitic vol] 9.4 fL Critically low 9.5-13.[address] [facility] Comment on above: Performed By: #### T SH #### [facility] [address] [place] [address] Dr. Sherry Sanches PLT 327 103/ul Normal 150-[address] [facility] Comment on above: Performed By: #### T SH #### [facility] [address] [place] [address] Dr. Sherry Sanches RBC 3.63 106/ul Critically low 4.20-5.[address] [facility] Comment on above: Performed By: #### T SH #### [facility] [address] [place] [address] Dr. Sherry Sanches WBC 8.5 103/ul Normal 4.0-11.0 [facility] Comment on above: Performed By: #### T SH #### [facility] [address] [place] [address] Dr. Sherry Sanches IRONon 10-25-2021 Iron [Mass/Vol] 43.0 ug/dL Critically low 50.0-170.0 [facility] Comment on above: Performed By: #### H STROPN #### [facility] [address], [place] [address] Dr. Sherry Sanches TSHon 10-02-2021 TSH 1.700 uIU/mL Normal 0.400-4.500 [facility] io Manager [employer] Comment on above: Performed By: #### T SH #### [facility] [address] [facility] [place] [place] [id number] THYROGLOBULINon 09-29-2021 Thyroglobulin <2.[address] [facility] Comment on above: Result Comment: This test was developed and its performance characteristics determined by [employer]. It has not been cleared or approved [...] is 2.0 ng/mL. Performed By: #### T GRIA ####[facility] [id number] [place], [place] [id number]. Sherry Sanches CBC AUTO DIFFon 09-24-2021 BASO # 0.0 103/ul Normal 0.0-0.[address] [facility] Comment on above: Performed By: #### C BC #### [facility] [address] [address] [address] Shrery Sanches Basophils/100 WBC (Bld) 0.5 % Normal 0.2-2.[address] [facility] Comment on above: Performed By: #### C BC #### [facility] [address], [place] [address] Dr. Sherry Sanches EO # 0.2 103/ul Normal 0.0-0.[address] [facility] Comment on above: Performed By: #### C BC #### [facility] [address] [address] [address] Sherry Sanches Eosinophils/100 WBC (Bld) 4.2 % Normal 0.9-7.[address] [facility] Comment on above: Performed By: #### C BC #### [facility] [address] [place] [address] Dr. Sherry Sanches Erythrocyte distribution width (RBC) [Ratio] 21.4 % Critically high 11.0-15.[address] [facility] Comment on above: Performed By: #### C BC #### [facility] [address] [place] [address] Dr. Sherry Sanches Hematocrit (Bld) [Volume fraction] 29.8 % Critically low 36.0-48.[address] [facility] Comment on above: Performed By: #### C BC #### [facility] [address] [place] [address] Dr. Sherry Sanches Hemoglobin (Bld) [Mass/Vol] 9.1 g/dL Critically low 12.0-16.[address] [facility] Comment on above: Performed By: #### C BC #### [facility] [address] [place] [address] Dr. Sherry Sanches IG # 0.01 10e3/ul Normal 0.00-0.[address] [facility] Comment on above: Performed By: #### C BC #### [facility] [address] [place] [address] Dr. Sherry Sanches IG % 0.3 % Normal 0.0-0.[address] [facility] Comment on above: Performed By: #### C BC #### [facility] [address] [place] [address] Dr. Sherry Sanches LYMPH # 0.9 103/ul Critically low 1.2-3.8 [facility] Comment on above: Performed By: #### C BC #### [facility] [address] [place] [address] Dr. Sherry Sanches Lymphocytes/100 WBC (Bld) 24.6 % Normal 20.5-60.[address] [facility] Comment on above: Performed By: #### C BC #### [facility] [address] [place] [address] Dr. Sherry Sanches MANUAL DIFF REQ NO Normal [facility] Comment on above: Performed By: #### C BC #### [facility] [address] [place] [address] Dr. Sherry Sanches MCH (RBC) [Entitic mass] 26.0 pg Critically low 26.7-34.[address] [facility] Comment on above: Performed By: #### C BC #### [facility] [address] [place] [address] Dr. Sherry Sanches MCHC (RBC) [Mass/Vol] 30.5 g/dL Normal 29.9-35.2 [facility] Comment on above: Performed By: #### C BC #### [facility] [address] [place] [address] Dr. Sherry Sanches MCV (RBC) [Entitic vol] 85.1 fL Normal 81.0-99.[address] [facility] Comment on above: Performed By: #### C BC #### [facility] [address] [place] [address] Dr. Sherry Sanches MONO # 0.5 103/ul Normal 0.3-0.[address] [facility] Comment on above: Performed By: #### C BC #### [facility] [address] [place] [address] Dr. Sherry Sanches Monocytes/100 WBC (Bld) 14.3 % Critically high 1.7-12.[address] [facility] Comment on above: Performed By: #### C BC #### [facility] [address] [place] [address] Dr. Sherry Sanches NEUT # 2.1 103/ul Normal 1.4-6.5 [facility] Comment on above: Performed By: #### C BC #### [facility] [address] [place] [address] Dr. Sherry Sanches Neutrophils/100 WBC (Bld) 56.1 % Normal 43.0-75.0 [facility] Comment on above: Performed By: #### C BC #### [facility] [address] [place] [address] Dr. Sherry Sanches Platelet mean volume (Bld) [Entitic vol] 8.6 fL Critically low 9.5-13.5 [facility] Comment on above: Performed By: #### C BC #### [facility] [address], [place] [address] Dr. Sherry Sanches PLT 253 103/ul Normal 150-450 [facility] Comment on above: Performed By: #### C BC #### [facility] [address] [place], [place] [address] Dr. Sherry Sanches RBC 3.50 106/ul Critically low 4.20-5.[address] [facility] Comment on above: Performed By: #### C BC #### [facility] [address] [place], [place] [address] Dr. Sherry Sanches WBC 3.8 103/ul Critically low 4.0-11.0 [facility] Comment on above: Performed By: #### C BC #### [facility] [address] [place] [address] [address] [address] Sherry Sanches IRONon 09-24-2021 Iron [Mass/Vol] 55.0 ug/dL Normal 50.0-170.[address] [facility] Comment on above: Performed By: #### H STROPN #### [facility] [address] [place] [address] [address] [address] Sherry Sanches US KIDNEYSon 09-23-2021 US [...] HOWARD POST Date: 2021-09-23 14:31 Normal [facility] US THYROIDon 09-23-2021 US THYROID EXAMINATION: US [...] by: HOWARD POST Date: 2021-09-23 14:38 Normal [facility] Cardiovascular Lab Reporton 11-02-2020 Cardiovascular Lab Report [facility] Patient Name: Diann Linder [facility] MR #: [id number] Physician: [facility] Date: 11/02/2020 Division of Birthdate: 1950 Cardiology Room #: CC [facility] Cardiovascular Services [place] [address] Cardiovascular Laboratory Report INDICATION: The patient is [...] informed consent. She was brought to laboratory operations coordinator in a fasting state. The left wrist area was prepped and draped in usual fashion. Modified Jose's test was favorable on the left. Access in the left radial artery was obtained using micropuncture technique. A 6-Malay x 11 cm Hydrophilic sheath was advanced. Verapamil was given through the sheath and heparin was administered intravenously. Bilateral selective coronary angiography was then performed using 6-Malay JL4 and JR4 diagnostic catheters. Catheters were [...] Tobias M.D. Date Trans: 11/02/2020 11:18 A/kamari [id number] cc: Sanaz Lake M.D. [address] [facility] [address] Normal [facility] SR-XR Spine Cervical 2 or 3 Views IMPORTon 06-29-2019 SR-XR Spine Cervical 2 or 3 Views IMPORT Images were obtained outside of [facility] [id number] Normal [facility] Coding Summary.on 07-30-2018 Coding Summary. CODING DATE: 07/30/2018 FINAL [facility] STATUS: Home (Routine DC) PAYOR: Medicare ADMIT DX: REASON FOR VISIT DX: M54.5 Low back pain FINAL DX: PRINCIPAL: M54.5 Low back pain SECONDARY: M25.551 Pain in right hip M25.552 Pain in left hip Z79.899 Other intermediate manager (current) drug therapy Z79.891 skilled nursing (current) use of opiate analgesic PROCEDURES DOCTOR NAME DATE NOTE: The code number assigned matches the documented diagnosis and / or procedure in the patient's chart. However, the narrative phrase printed from the coding software may appear abbreviated, or result in slightly different terminology. Coded By: Dunia Crook CphT Date Saved: 07/30/2018 01:41 pm Normal [facility] Consultation Noteon 07-31-19 Consultation Note HOSPITAL REGULATIONS [...] an injection. She reports the Gabapentin and Ostrander have remained helpful, and she denies side [...] the primary pain generator. I reviewed an [employer] Prescription Reporting System report on her, which is appropriate. I also reviewed her operative note. PLAN: I addressed options with her and I am going to refill the Ostrander at a dose of 5/325 one tablet [...] evaluation. Chad Salas M.D. [employer] Dictated: 07/22/2018 #[id number] Typed: 07/28/2018 #[id number] cc: Lewis Lee M.D. [facility] Comment on above: Result Comment: Elec tronically Signed By: Josue SOMMERS, Chad\.sandra\Date and Time Signed: 07/30/18 14:32 EDT Vital Signs Date Time Vital Sign Value Performing Clinician Facility 07-15-2023 14:13-0500 Heart rate 56 /min Prudencio Payan [facility] 07-15-2023 14:13-0500 SaO2% (BldA) [Mass fraction] 95 % Prudencio Schuyler [facility] 07-15-2023 14:13-0500 Diastolic blood pressure 84 mm[Hg] Prudencio Payan [facility] 07-15-2023 14:13-0500 Mean blood pressure 107 mm[Hg] Prudencio Payan [facility] 07-15-2023 14:13-0500 Systolic blood pressure 154 mm[Hg] Prudencio Payan [facility] 07-15-2023 14:13-0500 Respiratory rate 16 /min Prudencio Payan [facility] 07-15-2023 14:03-0500 Diastolic blood pressure 89 mm[Hg] Prudencio Payan [facility] 07-15-2023 14:03-0500 Systolic blood pressure 170 mm[Hg] Prudencio Payan [facility] 07-15-2023 14:01-0500 Diastolic blood pressure 90 mm[Hg] Prudencio Payan [facility] 07-15-2023 14:01-0500 Heart rate 60 /min Prudencio Payan [facility] 07-15-2023 14:01-0500 Respiratory rate 16 /min Prudencio Payan [facility] 07-15-2023 14:01-0500 SaO2% (BldA) [Mass fraction] 92 % Prudencio Payan [facility] 07-15-2023 14:01-0500 Systolic blood pressure 174 mm[Hg] Prudencio Payan [facility] 07-15-2023 13:12-0500 Heart rate 57 /min Prudencio Payan [facility] 07-15-2023 13:12-0500 SaO2% (BldA) [Mass fraction] 95 % Prudencio Payan [facility] 07-15-2023 13:09-0500 Mean blood pressure 121 mm[Hg] Prudencio Payan [facility] 07-15-2023 13:09-0500 Body temperature 98.06 [degF] Prudencio Payan [facility] 07-15-2023 13:08-0500 Respiratory rate 14 /min Prudencio Payan [facility] 05-21-2023 12:35-0500 Diastolic blood pressure 86 mm[Hg] Prudencio Payan [facility] 05-21-2023 12:35-0500 Heart rate 56 /min Prudencio Payan [facility] 05-21-2023 12:35-0500 Mean blood pressure 107 mm[Hg] Prudencio Payan [facility] 05-21-2023 12:35-0500 Respiratory rate 18 /min Prudencio Payan [facility] 05-21-2023 12:35-0500 Systolic blood pressure 150 mm[Hg] Flannery Schuyler [facility] 01-21-2023 10:53-0400 Heart rate 48 /min Prudencio Payan [facility] 01-21-2023 10:53-0400 SaO2% (BldA) [Mass fraction] 95 % Prudencio Schuyler [facility] 01-21-2023 10:53-0400 Diastolic blood pressure 77 mm[Hg] Prudencio Payan [facility] 01-21-2023 10:53-0400 Mean blood pressure 91 mm[Hg] Prudencio Payan [facility] 01-21-2023 10:53-0400 Systolic blood pressure 118 mm[Hg] Prudencio Payan [facility] 01-21-2023 10:53-0400 Respiratory rate 16 /min Prudencio Payan [facility] 01-21-2023 10:48-0400 Diastolic blood pressure 71 mm[Hg] Prudencio Payan [facility] 01-21-2023 10:48-0400 Heart rate 51 /min Prudencio Payan [facility] 01-21-2023 10:48-0400 SaO2% (BldA) [Mass fraction] 93 % Prudencio Payan [facility] 01-21-2023 10:48-0400 Systolic blood pressure 113 mm[Hg] Prudencio Payan [facility] 01-21-2023 09:51-0400 Heart rate 53 /min Prudencio Payan [facility] 01-21-2023 09:51-0400 SaO2% (BldA) [Mass fraction] 95 % Prudencio Payan [facility] 01-21-2023 09:51-0400 Respiratory rate 16 /min Flannery Schuyler [facility] 01-21-2023 09:47-0400 Body temperature 97.7 [degF] Prudencio Payan [facility] 01-21-2023 09:46-0400 Blood Pressure Location Prudencio Schuyler [facility] 01-21-2023 09:46-0400 Diastolic blood pressure 66 mm[Hg] Prudencio Payan [facility] 01-21-2023 09:46-0400 Mean blood pressure 79 mm[Hg] Prudencio Payan [facility] 01-21-2023 09:46-0400 Systolic blood pressure 104 mm[Hg] Prudencio Payan [facility] 12-26-2022 14:00-0400 Diastolic blood pressure 72 mm[Hg] Indiana Walsh [facility] 12-26-2022 14:00-0400 Heart rate 59 /min Indiana Walsh [facility] 12-26-2022 14:00-0400 Mean blood pressure 91 mm[Hg] Indiana Walsh [facility] 12-26-2022 14:00-0400 Respiratory rate 14 /min Indiana Walsh [facility] 12-26-2022 14:00-0400 Systolic blood pressure 130 mm[Hg] Indiana Walsh [facility] 07-04-2022 14:40-0500 Diastolic blood pressure 87 mm[Hg] Indiana Walsh [facility] 07-04-2022 14:40-0500 Heart rate 61 /min Indiana Walsh [facility] 07-04-2022 14:40-0500 Mean blood pressure 107 mm[Hg] Indiana Walsh [facility] 07-04-2022 14:40-0500 Respiratory rate 18 /min [place] Walsh [facility] 07-04-2022 14:40-0500 Systolic blood pressure 146 mm[Hg] [place] Walsh [facility] 06-10-2022 10:50-0500 Diastolic blood pressure 85 mm[Hg] Christ Rodriguez [facility] 06-10-2022 10:50-0500 Heart rate 72 /min Christ Rodriguez [facility] 06-10-2022 10:50-0500 Mean blood pressure 105 mm[Hg] Christ Rodriguez [facility] 06-10-2022 10:50-0500 Respiratory rate 18 /min Christ Rodriguez [facility] 06-10-2022 10:50-0500 Systolic blood pressure 146 mm[Hg] Christ Rodriguez [facility] 06-02-2022 12:49-0500 Diastolic blood pressure 74 mm[Hg] Indinaa Walsh [facility] 06-02-2022 12:49-0500 Heart rate 59 /min Indiana Walsh [facility] 06-02-2022 12:49-0500 Mean blood pressure 91 mm[Hg] Indiana Walsh [facility] 06-02-2022 12:49-0500 Respiratory rate 18 /min Indiana Walsh [facility] 06-02-2022 12:49-0500 Systolic blood pressure 126 mm[Hg] [place] Walsh [facility] 04-30-2022 08:56-0500 Heart rate 56 /min Chad Peraltaumbar [facility] 04-30-2022 08:56-0500 SaO2% (BldA) [Mass fraction] 94 % Chad Zumbar [facility] 04-30-2022 08:56-0500 Diastolic blood pressure 70 mm[Hg] Chad Zumbar [facility] 04-30-2022 08:56-0500 Mean blood pressure 87 mm[Hg] Chad Zumbar [facility] 04-30-2022 08:56-0500 Systolic blood pressure 119 mm[Hg] Chad Zumbar [facility] 04-30-2022 08:56-0500 Respiratory rate 16 /min Chad Zumbar [facility] 04-30-2022 08:50-0500 Diastolic blood pressure 72 mm[Hg] Chad Zumbar [facility] 04-30-2022 08:50-0500 Heart rate 58 /min Chad Zumbar [facility] 04-30-2022 08:50-0500 Respiratory rate 16 /min Chad Zumbar [facility] 04-30-2022 08:50-0500 SaO2% (BldA) [Mass fraction] 93 % Chad Zumbar [facility] 04-30-2022 08:50-0500 Systolic blood pressure 114 mm[Hg] Chad Zumbar [facility] 04-30-2022 08:14-0500 Diastolic blood pressure 56 mm[Hg] Chad Zumbar [facility] 04-30-2022 08:14-0500 Heart rate 57 /min Chad Zumbar [facility] 04-30-2022 08:14-0500 Mean blood pressure 77 mm[Hg] Chad Zumbar [facility] 04-30-2022 08:14-0500 Systolic blood pressure 120 mm[Hg] Chad Zumbar [facility] 04-30-2022 08:13-0500 Respiratory rate 14 /min Chad Zumbar [facility] 04-30-2022 08:13-0500 SaO2% (BldA) [Mass fraction] 94 % Chad Zumbar [facility] 04-30-2022 08:12-0500 Body temperature 97.52 [degF] Chad Zumbar [facility] 03-27-2022 15:35-0500 Diastolic blood pressure 61 mm[Hg] Chad Zumbar [facility] 03-27-2022 15:35-0500 Heart rate 58 /min Chad Zumbar [facility] 03-27-2022 15:35-0500 Mean blood pressure 83 mm[Hg] Chad Zumbar [facility] 03-27-2022 15:35-0500 Respiratory rate 16 /min Chad Zumbar [facility] 03-27-2022 15:35-0500 Systolic blood pressure 127 mm[Hg] Chad Zumbar [facility] 01-23-2022 13:01-0400 Diastolic blood pressure 91 mm[Hg] Chad Zumbar [facility] 01-23-2022 13:01-0400 Diastolic blood pressure 84 mm[Hg] Chad Zumbar [facility] 01-23-2022 13:01-0400 Heart rate 91 /min Chad Zumbar [facility] 01-23-2022 13:01-0400 Heart rate 61 /min Chad Zumbar [facility] 01-23-2022 13:01-0400 Mean blood pressure 103 mm[Hg] Chad Zumbar [facility] 01-23-2022 13:01-0400 Respiratory rate 14 /min Chad Zumbar [facility] 01-23-2022 13:01-0400 Respiratory rate 16 /min Chad Zumbar [facility] 01-23-2022 13:01-0400 Systolic blood pressure 151 mm[Hg] Chad Zumbar [facility] 01-23-2022 13:01-0400 Systolic blood pressure 142 mm[Hg] Chad Zumbar [facility] 01-08-2022 14:47-0400 Respiratory rate 16 /min XUAN STALLWORTH [facility] 11-26-2021 15:00-0400 Body height 158.75 cm Angela Rodriguez Other [employer] Other 11-26-2021 15:00-0400 Body mass index (BMI) [Ratio] 38.51 kg/m2 Angela Rodriguez Other [employer] Other 11-26-2021 15:00-0400 Body temperature 101 [degF] Angela Rodriguez Other [employer] Other 11-26-2021 15:00-0400 Body weight 97.07 kg Angela Rodriguez Other [employer] Other 11-26-2021 15:00-0400 SaO2% (BldA) [Mass fraction] 91 % Angela Rodriguez Other [employer] Other 11-21-2021 15:30-0400 Diastolic blood pressure 88 mm[Hg] Chad Salas [facility] 11-21-2021 15:30-0400 Heart rate 60 /min Chad Salas [facility] 11-21-2021 15:30-0400 Mean blood pressure 113 mm[Hg] Chad Salas [facility] 11-21-2021 15:30-0400 Respiratory rate 16 /min Chad Salas [facility] 11-21-2021 15:30-0400 Systolic blood pressure 162 mm[Hg] Chad Salas [facility] 11-07-2021 12:00-0400 Diastolic blood pressure 80 mm[Hg] Susie Guzmán Jr. [facility] 11-07-2021 12:00-0400 Heart rate 56 /min Susie Guzmán Jr. [facility] 11-07-2021 12:00-0400 Respiratory rate 18 /min Susie Guzmán Jr. [facility] 11-07-2021 12:00-0400 SaO2% (BldA) [Mass fraction] 96 % Susie Guzmán Jr. [facility] 11-07-2021 12:00-0400 Systolic blood pressure 175 mm[Hg] Susie Guzmán Jr. [facility] 11-07-2021 11:13-0400 Blood Pressure Location Susie Guzmán Jr. [facility] 11-07-2021 11:13-0400 Body temperature 97.52 [degF] Susie Guzmán Jr. [facility] 11-07-2021 11:13-0400 Diastolic blood pressure 90 mm[Hg] Susie Guzmán Jr. [facility] 11-07-2021 11:13-0400 Heart rate 59 /min Susie Guzmán Jr. [facility] 11-07-2021 11:13-0400 Mean blood pressure 120 mm[Hg] Susie Guzmán Jr. [facility] 11-07-2021 11:13-0400 Respiratory rate 20 /min Susie Guzmán Jr. [facility] 11-07-2021 11:13-0400 SaO2% (BldA) [Mass fraction] 97 % Susie Guzmán Jr. [facility] 11-07-2021 11:13-0400 Systolic blood pressure 181 mm[Hg] Susie Guzmán Jr. [facility] 11-07-2021 11:05-0400 Body temperature 96.8 [degF] Susie Guzmán Jr. [facility] 11-07-2021 11:05-0400 Diastolic blood pressure 93 mm[Hg] Susie Guzmán Jr. [facility] 11-07-2021 11:05-0400 Heart rate 61 /min Susie Guzmán Jr. [facility] 11-07-2021 11:05-0400 Respiratory rate 22 /min Susie Guzmán Jr. [facility] 11-07-2021 11:05-0400 SaO2% (BldA) [Mass fraction] 97 % Susie Guzmán Jr. [facility] 11-07-2021 11:05-0400 Systolic blood pressure 177 mm[Hg] Susie Guzmán Jr. [facility] 11-07-2021 10:50-0400 Respiratory rate 19 /min Susie Guzmán Jr. [facility] 11-07-2021 10:45-0400 Respiratory rate 15 /min Susie Guzmán Jr. [facility] 11-07-2021 10:38-0400 Body temperature 96.8 [degF] Susie Guzmán Jr. [facility] 11-07-2021 08:04-0400 Mean blood pressure 119 mm[Hg] Susie Guzmán Jr. [facility] 11-07-2021 07:54-0400 Mean blood pressure 108 mm[Hg] Susie Guzmán Jr. [facility] 11-07-2021 07:53-0400 Body temperature 98.06 [degF] Susie Guzmán Jr. [facility] 11-07-2021 07:53-0400 Respiratory rate 20 /min Susie Guzmán Jr. [facility] 11-07-2021 07:53-0400 Heart rate 66 /min Susie Guzmán Jr. [facility] 10-23-2021 13:46-0400 Diastolic blood pressure 94 mm[Hg] Chad Zumbar [facility] 10-23-2021 13:46-0400 Heart rate 57 /min Chad Zumbar [facility] 10-23-2021 13:46-0400 Mean blood pressure 122 mm[Hg] Chad Zumbar [facility] 10-23-2021 13:46-0400 SaO2% (BldA) [Mass fraction] 95 % Chad Zumbar [facility] 10-23-2021 13:46-0400 Systolic blood pressure 179 mm[Hg] Chad Zumbar [facility] 10-23-2021 13:46-0400 Respiratory rate 12 /min Chad Zumbar [facility] 10-23-2021 13:44-0400 Diastolic blood pressure 100 mm[Hg] Chad Zumbar [facility] 10-23-2021 13:44-0400 Systolic blood pressure 194 mm[Hg] Chad Zumbar [facility] 10-23-2021 13:36-0400 Diastolic blood pressure 106 mm[Hg] Chad Zumbar [facility] 10-23-2021 13:36-0400 Heart rate 71 /min Chad Zumbar [facility] 10-23-2021 13:36-0400 Respiratory rate 16 /min Chad Zumbar [facility] 10-23-2021 13:36-0400 SaO2% (BldA) [Mass fraction] 98 % Chad Zumbar [facility] 10-23-2021 13:36-0400 Systolic blood pressure 199 mm[Hg] Chad Zumbar [facility] 10-23-2021 12:31-0400 Body temperature 98.24 [degF] Chad Zumbar [facility] 10-23-2021 12:31-0400 Heart rate 64 /min Chad Zumbar [facility] 10-23-2021 12:31-0400 Mean blood pressure 111 mm[Hg] Chad Zumbar [facility] 10-23-2021 12:31-0400 SaO2% (BldA) [Mass fraction] 94 % Chad Zumbar [facility] 10-23-2021 12:29-0400 Respiratory rate 14 /min Chad Salas [facility] 10-22-2021 11:05-0400 Blood Pressure Location Susie Guzmán Jr. [facility] 10-22-2021 11:05-0400 Diastolic blood pressure 70 mm[Hg] Susie Guzmán Jr. [facility] 10-22-2021 11:05-0400 Heart rate 68 /min Susie Guzmán Jr. [facility] 10-22-2021 11:05-0400 Systolic blood pressure 124 mm[Hg] Susie Guzmán Jr. [facility] 09-25-2021 14:30-0400 Body height 158.75 cm Lonnie Vuong Other [employer] Other 09-25-2021 14:30-0400 Body mass index (BMI) [Ratio] 38.51 kg/m2 Lonnie Vuong Other [employer] Other 09-25-2021 14:30-0400 Body weight 97.07 kg Lonnie Vuong Other [employer] Other Encounters Encounter Date Encounter Type Care Provider Facility Start: 07-15-2023 End: 07-15-2023 Pain Management Prudencio Payan [facility] Start: 06-22-2023 End: 06-22-2023 ambulatory [facility] Start: 06-03-2023 End: 06-03-2023 ambulatory ABDI ACOSTA Not Available Start: 05-21-2023 End: 05-22-2023 ambulatory Prudencio Payan Facility:[facility] Start: 05-21-2023 End: 05-22-2023 ambulatory DO Prudencio Payan Facility:[facility] Start: 05-21-2023 End: 05-21-2023 Patient encounter procedure Prudencio Payan [facility] Start: 05-21-2023 End: 05-21-2023 Pain Management Prudencio Payan [facility] Start: 03-18-2023 End: 03-18-2023 ambulatory [facility]I [facility] Start: 02-12-2023 End: 02-13-2023 ambulatory DO Prudencio Payan Facility:[facility] Start: 01-21-2023 End: 01-22-2023 ambulatory Prudencio Payan Facility:[facility] Start: 01-21-2023 End: 01-21-2023 Patient encounter procedure Prudencio Payan [facility] Start: 12-26-2022 End: 12-27-2022 ambulatory Indiana Walsh Facility:[facility] Start: 12-26-2022 End: 12-26-2022 Patient encounter procedure Indiana Walsh [facility] Start: 12-26-2022 End: 12-26-2022 Pain Management Indiana Walsh [facility] Start: 09-26-2022 End: 09-27-2022 ambulatory Indiana Walsh Facility:[facility] Start: 09-16-2022 End: 09-17-2022 ambulatory Radha Angulo Facility:[facility] Eri gomez Start: 09-12-2022 End: 09-12-[address] SCOTT Sunshine Facility: Start: 08-05-2022 End: 08-06-2022 ambulatory UNKNOWN PROVIDER Facility:[facility] Start: 08-05-2022 End: 08-06-2022 Office outpatient visit 15 minutes Christ Rodriguez MD Work Phone: [facility] Orthopedic [facility]ine Comment on above: Cervical spondylosis with myelopathy (Primary Dx) Start: 08-05-2022 ambulatory [place] Jillian Facilit y:[facility] Start: 08-04-2022 Letter [facility] Start: 07-30-2022 End: 07-31-2022 Orders Only Christ Rodriguez MD Work Phone: [facility] Neurosurgery Comment on above: Cervical spondylosis with myelopathy Start: 07-04-2022 End: 07-05-2022 ambulatory Indiana Walsh Facility:[facility] Start: 07-04-2022 End: 07-04-2022 Patient encounter procedure Indiana Walsh [facility] Start: 07-04-2022 End: 07-04-2022 Pain Management Indiana Walsh [facility] Start: 06-12-2022 End: 06-12-2022 Patient encounter procedure Chad Salas [facility] Start: 06-10-2022 End: 06-10-2022 Patient encounter procedure Christ Rodriguez [facility] Start: 06-06-2022 End: 06-07-[address] ANGELY DUENAS Facility: Start: 06-02-2022 End: 06-02-2022 Patient encounter procedure Indiana Walsh [facility] Start: 06-02-2022 End: 06-02-2022 Pain Management Indiana Walsh [facility] Start: 05-20-2022 End: 05-21-[address] SANAZ LAKE . Facility:[facility] Start: 05-07-2022 End: 05-08-[address] ABDI ACOSTA Facility:[facility] Start: 04-30-2022 End: 04-30-2022 Pain Management Chad Josue [facility] Start: 04-24-2022 End: 04-25-[address] ABDI ACOSTA Facility:[facility] Start: 04-07-2022 End: 04-08-[address] SANAZ LAKE . Facility:[facility] Start: 04-01-2022 End: 04-01-2022 Patient encounter procedure Chad Josue [facility] Start: 03-31-2022 End: 04-01-[address] VENKAT TOBIAS Facility:[facility] Start: 03-27-2022 End: 03-27-2022 Pain Management Chad Krishnamurthynorah [facility] Start: 02-14-2022 End: 02-16-2022 Evaluation and management of inpatient DR FER MCKENNA . Facility:[facility] Start: 01-23-2022 End: 01-23-2022 Pain Management Chad Peraltashannon [facility] Start: 01-17-2022 End: 01-17-2022 Patient encounter procedure Dakotah EMERY [facility] Start: 01-16-[address] VENKAT TOBIAS Fac ility:[facility] Start: 01-15-2022 End: 01-15-2022 Patient encounter procedure Savannah Bruner [facility] Start: 01-10-2022 End: 01-11-2022 ambulatory XUAN BASIM Facility:[facility] Start: 01-08-2022 End: 01-08-2022 Patient encounter procedure XUANCHAY STALLWORTH [facility] Start: 01-07-2022 End: 01-08-[address] SUSIE GUZMÁN JR . Facility:[facility] Start: 12-17-2021 End: 12-18-[address] SANAZ LAKE . Facility:[facility] Start: 11-26-2021 End: 11-26-2021 ambulatory Angela Rodriguez Other [employer] Other Start: 11-26-2021 Office outpatient visit 15 minutes Angela Rodriguez [facility] Start: 11-21-2021 End: 11-21-2021 Patient encounter procedure Chad Salas [facility] Start: 11-21-2021 End: 11-21-2021 Pain Management Chad Zshannon [facility] Start: 11-08-2021 End: 11-08-[address] SANAZ LAKE . Facility:[facility] Start: 11-07-2021 End: 11-07-2021 Admission to same day surgery center Susie Guzmán Jr. [facility] Start: 10-31-2021 End: 10-31-2021 Patient encounter procedure Susie Guzmán Jr. [facility] Start: 10-31-2021 End: 10-31-[address] SANAZ LAKE . Facility:[facility] Start: 10-30-2021 End: 10-30-2021 ambulatory Lonnie Vuong Other [employer] Other Start: 10-30-2021 Telephone encounter Lonnie Vuong [facility] Start: 10-25-2021 End: 10-26-[address] SANAZ LAKE . Facility:[facility] Start: 10-23-2021 End: 10-23-2021 Pain Management Chad Salas [facility] Start: 10-22-2021 End: 10-22-2021 Patient encounter procedure Susie Guzmán Jr. [facility] Start: 10-10-2021 End: 10-10-[address] SANAZ LAKE . Facility:[facility] Start: 10-09-2021 End: 10-09-2021 ambulatory Lonnie Vuong Facility:[facility] Start: 09-25-2021 End: 09-25-2021 ambulatory Lonnie Vuong Other [employer] Other Start: 09-25-2021 Office outpatient visit 25 minutes Lonnie Vuong [facility] Start: 09-24-2021 End: 09-25-[address] SANAZ LAKE . Facility:[facility] Start: 09-23-2021 End: 09-24-[address] SANAZ LAKE . Facility:[facility] Start: 11-02-2020 End: 11-03-2020 ambulatory PROVIDER UNKNOWN Facility:[facility] Procedures Date Procedure Procedure Detail Performing [...] f lumbar spine using fluoroscopic guidance Chad Josue Comment on above: L5/S1 60% relief Start: [...] 12-09-2016 Gel shots in left knee 20 Cahd Salas Comment on above: 3 times 0% [...] [Mass/volume] in Serum or Plasma Cholesterol [facility] Start: 08-05-2022 End: 08-05-2022 Patient encounter procedure 08/05/2022 Office Visit Orthopedics Christ Rodriguez MD [address] [place] [address] [facility] Orthopedic Spine Start: 02-08-2022 Influenza vaccination Influenza [...] Screening for malignant neoplasm of breast Mammography [facility] Start: 01-31-1968 Hepatitis C screening Hepatitis C Antibody [facility] Start: 01-31-1968 Tetanus + diphtheria + acellular pertussis vaccine (product) Tdap Booster [facility] Start: 1950 Screening for malignant neoplasm of colon Colonoscopy [facility] Immunizations Immunization Date Immunization Notes Care Provider Bud garcia 02-15-2022 influenza, high dose seasonal, preservative-free [facility] 05-15-2021 SARS-CoV-2 (COVID-19 ) mRNA BNT-162b2 vax Chad Zumbar [facility] 04-27-2021 influenza virus vacc ine, unspecified formulation Chad Zumbar [facility] 08-07-2020 SARS-CoV-2 (COVID-19 ) mRNA BNT-162b2 vax Chad Zumbar [facility] 07-16-2020 SARS-CoV-2 (COVID-19 ) mRNA BNT-162b2 vax Chad Zumbar [facility] 07-09-2020 SARS-CoV-2 (COVID-19 ) mRNA BNT-162b2 deseanx Susie Guzmán Jr. [facility] 06-11-2020 SARS-CoV-2 (COVID-19 ) mRNA BNT-162b2 chucky Guzmán Jr. [facility] 02-26-2019 influenza virus vacc ine, unspecified formulation Chad Zumbar [facility] 02-26-2019 pneumococcal polysaccharide vaccine, 23 valent Chad Zumbar [facility] 02-21-2019 influenza virus vacc ine, unspecified formulation Chad Zumbar [facility] 02-17-2018 pneumococcal polysaccharide vaccine, 23 valent Chad Zumbar [facility] 02-09-2018 influenza virus vacc ine, unspecified formulation Chad Zumbar [facility] 02-09-2018 pneumococcal conjuga te vaccine, 13 valent Chad Zumbar [facility] 02-08-2017 influenza virus vacc ine, unspecified formulation Chad Zumbar [facility] 03-12-2015 influenza virus vacc ine, unspecified formulation Chad Zumbar [facility] 03-23-2014 influenza virus vacc ine, unspecified formulation Chad Zumbar [facility] 03-10-2003 pneumococcal polysaccharide vaccine, 23 valent Chad Zumbar [facility] Payers Date Payer Category Payer Medicare MEDICARE - RAILR OAD MEDICARE [employer] [id number] 2015-Present [address] [address] [place] [address] Medicare [id number] 2015 Unknown [id number] 1959 Medicare [id number] 1959 Self-pay 1959 Unknown [id number] 1950 Unknown [id number] .840.1.349731.3.579.2.647 1950 Unknown [id number] .0.1.316302.3.579.2.732 1950 Unknown [id number] 2.840.1.068123.3.579.2.732 1950 Unknown [id number] 2.840.1.320429.3.579.2.732 1950 Unknown [id number] 2.16.840.1.919018.3.579.2.732 1950 Unknown [id number] 2.16.840.1.876367.3.579.2.732 1950 Unknown [id number] 2.16.840.1.768233.3.579.2.732 1950 Unknown [id number] 2.16.840.1.366044.3.579.2.593 1950 Unknown [id number] 2.16.840.1.683692.3.579.2.593 1950 Unknown [id number] 2.16.840.1.822523.3.579.2.59 1950 Unknown [id number] 2.16.840.1.610504.3.579.2.593 1950 Unknown [id number] 2.16.840.1.034414.3.579.2.593 1950 Unknown [id number] 2.16.840.1.254642.3.579.2.593 1950 Unknown [id number] 2.16.840.1.365233.3.579.2.593 1950 Unknown [id number] 2.16.840.1.375761.3.579.2.593 1950 Unknown [id number] 2.16.840.1.392111.3.579.2.593 1950 Unknown [id number] 2.16.840.1.249185.3.579.2.593 1950 Unknown [id number] 2.16.840.1.108829.3.579.2.593 1950 Unknown [id number] 2.16.840.1.379103.3.579.2.593 1950 Unknown [id number] 2.16.840.1.741939.3.579.2.593 1950 Unknown [id number] 2.16.840.1.182654.3.579.2.593 1950 Unknown [id number] 2.16.840.1.912791.3.579.2.593 1950 Unknown [id number] 2.16.840.1.926634.3.579.2.593 1950 Unknown [id number] 2.16.840.1.580826.3.579.2.593 1950 Unknown [id number] 2.16.840.1.871654.3.579.2.593 1950 Unknown [id number] 2.16.840.1.093311.3.579.2.593 1950 Unknown [id number] 2.16.840.1.094210.3.579.2.125 9 1950 Unknown [id number] 2.16.840.1.487909.3.579.2.727 1950 Unknown [id number] 2.16.840.1.686463.3.579.2.727 1950 Unknown [id number] 2.16.840.1.257283.3.579.2.727 1950 Unknown [id number] 2.16.840.1.199138.3.579.2.727 1950 Unknown [id number] 2.16.840.1.340594.3.579.2.727 1950 Unknown [id number] 2.16.840.1.933574.3.579.2.727 1950 Unknown [id number] 2.16.840.1.524931.3.579.2.72 1950 Unknown [id number] 2.16.840.1.263466.3.579.2.727 1950 Unknown [id number] 2.16.840.1.864497.3.579.2.727 1950 Unknown [id number] 2.16.840.1.636279.3.579.2.727 Unknown [id number] 2.16.840.1.197261.3.579.2.593 Unknown [id number] 2.16.840.1.467280.3.579.2.531 Social History Date Type Detail Facility Start: 05-31-2021 End: 01-08-2022 Tobacco smoking status Ex-smoker (finding) [employer] Other Sex Assigned At Female [employer] Other Tobacco smoking status [facility] Tobacco smoking consumption unknown [facility] Start: 1950 Sex Assigned At Not on file [facility] History of tobacco use Current smoker [facility] History of tobacco use Cigarette Smoker [facility] Start: 08-05-2022 Tobacco use and exposure Smokeless tobacco non-user [facility] Start: 1950 Sex Assigned At Female F [facility] Medical Equipment Procedure Code Equipment Code Equipment Origin al Text Equipment Identifier Dates Capsule endoscopy, for patency of lumen evaluation Video capsule endoscopy system ([id number] FDA Start: 09-11-2021 CERVICAL FUSION POSTERIOR [...] Start: 06-28-2019 CERVICAL FUSION POSTERIOR Emigdio SOMMERS, Chrsit A 06/28/19 Unknown Back FDA Start: 06-28-2019 [...] Nugent 06/28/19 Unknown Back FDA Start: 06-28-2019 Functional Status Date Assessment Result Facility 07-15-2023 Functional Status N/A [facility] 05-21-2023 Functional Status N/A [facility] 01-21-2023 Functional Status N/A [facility] 12-26-2022 Functional Status N/A [facility] 07-04-2022 Functional Status N/A [facility] 06-10-2022 Functional Status N/A [facility] 06-02-2022 Functional Status N/A [facility] 04-30-2022 Functional Status N/A [facility] 03-27-2022 Functional Status N/A [facility] 01-23-2022 Functional Status N/A [facility] 01-15-2022 Functional Status N/A [facility] 01-08-2022 Functional Status N/A [facility] 11-21-2021 Functional Status N/A [facility] 10-31-[address] [facility] 10-23-2021 Functional Status N/A [facility] 10-22-2021 Functional Status N/A [facility] Clinical Notes 09-25-2021 to 07-15-2023 Note Date & Type Note Facility 07-15-2023 Evaluation + Plan note Extrac evie from: Title:Bilateral L3-5 medial branch block #1 Auth or:Prudencio Payan DO Date:07/15/23 Diagnosis: m47.817, lumbosac ral spondyloarthropathy Procedure: Bilateral diagnostic lumbar medial branch blocks under fluoroscopic guidance, targeting the L3 and L4 medial branches and posterior ramus of L5 that cover the L4/5 and L5/S1 facet joints Anesthesia: Local Complications: none After informed consent was obtained, the patient was brought to the procedure room and placed in the prone position. The back area is prepped and draped in usual sterile fashion. Using fluoroscopic guidance skin and subcutaneous tissue overlying needle trajectories to the target sites were anesthetized with 2% lidocaine. 22- gauge needles were advanced under fluoroscopic guidance to the appropriate anatomic landmarks. Needle tip position was confirmed using fluoroscopy in at least 2 views. Injection of small amount of Omnipaque contrast each needle tip revealed appropriate spread without vascular take. Subsequently, 0.5 mL of 0.5% bupivacaine was injected at each needle tip. The needles were removed. The patient was then transferred to the recovery room in stable condition. Follow-up: Should the patient have pain relief, the patient may be a candidate for radiofrequency lesioning. The patient agrees to continue currently prescribed/recommended therapies. Future Appointments Appointment Date:07/23/2023 01:30:00 PM Scheduled Provider:Prudencio Payan DO Location:.[facility] Appointment Type:Pain Management - Follow Up (FT) [facility]02-12-2024 [facility]iology - [facility] Subjective Diann Linder is a 73 y.o. year old female patient being seen for 3 mo follow up CAD, WARREN, and chest pain. She had echo and labs in Mar 2023. She says her youth liaison officer changed her thyroid medication and she's felt [...] February 2022 she was admitted to the [facility] with acute on chronic diastolic heart failure and acu (more content not included)...[facility]01-11-2024 Evaluation + Plan noteExtracted from: Title:Pain Management * Author:Nile Payan DO. Date:05/21/23 Impression and Plan History, physical examination, and personal review of pertinent imaging results indicate a diagnosis of: -Cervical radiculopathy and cervical postlaminectomy pain syndrome -Lumbosacral spondyloarthropathy Plan: -Refill gabapentin and Ostrander, update controlled substance agreement as appropriate and [...] with any questions or concerns that arise. [facility]11-08-2023 NotePatient here for 1 year follow [...] myalgias and neck pain. Neurological: Positive for weakness.[facility] 03-18-2023 NoteUT Cardiology - [facility] Subjective Diann Linder is a [...] she was admitted to (more content not included)...[facility]09-13-2023 Evaluation + Plan noteExtracted from: Title:L5/S1 interlaminar [...] the epidural space was confirmed using the qwpz-kg-dlwrdevzhb technique and 2 cc of air. Injection [...] Date:02/12/2023 12:30:00 PM Scheduled Provider:Prudencio Payan DO Location:[facility] Appointment Type:Pain Management - Follow Up (FT) [facility]09-13-2023 Note [id number]:127[facility] 12-26-2022 Evaluation + Plan noteExtracted from: Title:Pain [...] necessary. In the meantime, she intermittently uses Ostrander 5/325 twice daily as needed pain. She tolerates this well. She is requesting a refill today. OARRS was reviewed. Most recent UDS was reviewed. We will obtain an updated UDS today for compliance purposes. A refill be sent to her pharmacy. She will follow-up as above mentioned LILIANE score: 47% [facility]03-29-2023 History of Present illness Narrative* [...] 02jun2022 shows 4mm subluxation C2-3 MRI cervical [id number] C7-T1 spondy with mild cord compression IMP: [...] cane Charline Velazquez RN documented in this [id number] Evaluation + Plan note Extracted from: Title:Pain [...] gave her 50% relief. She intermittently uses Ostrander 5/325 twice daily as needed pain. She can only walk around the grocery store if she has a cart. Previous physical therapy did not help. Previous injection did give some relief but not quite enough. She did see Dr. Christ Rodriguez. He had ordered the MRI of the cervical spine. Unfortunate, she does not want to travel all the way to [facility] to see him. She wonders if there is somebody locally she can see if it is needed. Health Status Allergies: Allergic Reactions (Selected) Severity Not Documented Amoxicillin- Hives., Allergies (1) ActiveReaction amoxicillinHives Current medications: (Selected) Prescriptions Prescribed Levsin 0.125 mg SL Tab: 0.125 mg = 1 tab(s), Oral, QID, PRN Spasm, # 20 tab(s), Refills(s) 0, [id number], cm, 10/31/21 16:20:00 EDT, Height/Length Dosing, 97.9, kg, 10/31/21 16:20:00 EDT, Weight Dosing Ostrander 325 mg-5 mg oral tablet: 1 tab(s), Oral, BID as needed for pain, 60 tab(s), Refill(s) 0, [id number], cm, 06/02/22 12:59:00 EST, Height/Length Dosing, 101.6, kg, 03/27/22 15:44:00 EST, Weight Dosing Ostrander 325 mg-5 mg oral tablet: 1 tab(s), Oral, BID as needed for pain, 60 tab(s), Refill(s) 0, [id number], cm, 09/18/21 13:15:00 EDT, Height/Length Dosing, 95.2, kg, 05/31/21 12:51:00 EST, Weight Dosing Ostrander 325 mg-5 mg oral tablet: 1 tab(s), Oral, BID as needed for pain, 60 tab(s), Refill(s) 0, [facility], 158, cm, 07/04/22 14:50:00 EST, Height/Length Dosing, 99, kg, 07/04/22 14:50:00 EST, Weight Dosing gabapentin 300 mg Cap: See Instructions, 1 cap(s) Oral Qam 2 caps QHS, # 270 cap(s), Refills(s) 0, Pharmacy: [facility], 158, cm, 05/31/21 12:51:00 EST, Height/Length Dosing, 95.2, kg, 05/31/21 12:51:00 EST, Weight Dosing gabapentin 300 mg Cap: See Instructions, one cap in AM, 2 caps at bedtime., # 270 cap(s), Refills(s) 0, Pharmacy: [facility], 158, cm, 04/30/22 [...] Problems Chronic back pain / SNOMED CT 790056942 / Confirmed Osteoarthritis / SNOMED CT 2831275523 / Confirmed Hematuria / SNOMED CT 925185499 / Confirmed Anemia / SNOMED CT 624502519 / Confirmed HTN (hypertension) / SNOMED CT 2899613910 / Confirmed Glaucoma / SNOMED CT 06382604 / Confirmed Hypothyroid / SNOMED CT 94849184 / Confirmed C. difficile diarrhea / SNOMED CT 9518094028 / Confirmed Anemia / SNOMED CT 133915730 / Confirmed Arthritis / SNOMED CT 4922510 / Confirmed Heart disease / SNOMED CT 23587591 / Confirmed Hypertension / SNOMED CT 3005064070 / Confirmed Hyperlipidemia / SNOMED CT 07750972 / Confirmed Sleep apnea / SNOMED CT 503671223 / Confirmed Long-term current use of opiate analgesic drug / SNOMED CT 717800365077975 / Confirmed Added secondary to current Opioid Treatment Agreement Kidney stones / SNOMED CT 684223458 / Confirmed Renal mass / SNOMED CT 078113642 / Confirmed Abnormal kidney function / SNOMED CT 07772118 / Confirmed H/O hematuria / SNOMED CT 3263260676 / Confirmed Resolved: At risk for falls / SNOMED CT 623978002 Problem added when Risk for Falls Careplan was initiated. Resolved due to patient discharge. Resolved: At risk for falls / SNOMED CT 257509154 Problem added when Risk for Falls Careplan was initiated. Resolved due to patient discharge. Resolved: Arthritis / SNOMED CT 4485674 Resolved: Anxiety / SNOMED CT 44708044 Resolved: Trigeminal neuralgia of left side of face / SNOMED CT 48515075 Resolved: Osteopenia / SNOMED CT 534706475 Resolved: Hypotension / SNOMED CT 51041380 Resolved: Thyroid cancer / SNOMED CT 0018046998 Resolved: Carpal tunnel / SNOMED CT 897632422 Resolved: Thyroid cancer / SNOMED CT 667279359 Resolved: Liver disease / SNOMED CT 197191336 Resolved: Microscopic hematuria / SNOMED CT 330499639 Canceled: At risk for falls / SNOMED CT 395089088 Problem added when Risk for Falls Careplan was initiated. Resolved due to patient discharge. Canceled: Impaired skin integrity / SNOMED CT 13080898 Problem added on documentation of skin impairments. Resolved due to patient discharge. Canceled: Thyroid nodule / SNOMED CT 848008129 Canceled: At risk for falls / SNOMED CT 826706937 Problem added when Risk for Falls Careplan was initiated. Canceled: Depression / SNOMED CT 30747254 Canceled: Smoker / IMO 032308 Added secondary to documentation in Social History. Canceled: Smoker / SNOMED CT 02114504 Added secondary to documentation in Social History. Canceled: Cancer, uterine / SNOMED CT 6617489179 Canceled: Hematoma / SNOMED CT 7031633527 Objective Vital Signs 07/04/2022 14:40 EST Peripheral [...] Negative on the left Integumentary: Warm, Dry, [place]. Neurologic: Alert, Oriented. Psychiatric: Cooperative, Appropriate mood [...] on June 15, 2022 11:21 EST Encounter info:[id number], Clarence - Isiah, Outpatient, 06/12/2022 - 06/12/2022 [...] on June 03, 2022 10:34 EST Encounter info:[id number], Clarence Joyce, Outpatient, 06/02/2022 - 06/02/2022 * [...] on June 15, 2022 11:33 EST Encounter info:[id number], Clarence Joyce, Outpatient, 06/12/2022 - 06/12/2022 Impression [...] want to travel all the way to [facility] to see Dr. Rodriguez. She would like a local referral. We will facilitate this to Dr. Arthur Robison per patient's request. She states that she has had friends who have seen him. In regards to her pain she continues to use Ostrander 5/325 twice daily as needed pain. She [...] and plan. I was available for consultation. [facility]01-23-2023 Evaluation + Plan noteExtracted from: Title:Pain [...] regards to her pain medication she uses Ostrander twice daily as needed pain and tolerates [...] Date:07/04/2022 02:30:00 PM Scheduled Provider:Indiana Walsh PA-C Location:.[facility] Appointment Type:Pain Management - Follow Up (FT) [facility]09-07-2022 Hospital Discharge instructions Patient Education [...] Follow these instructions at home: Medicines Take ngrl-awx-wigeqlt and prescription medicines only as told by [...] to keep your urine pale yellow. ?Take xnso-hsz-qiqkycb or prescription medicines. ?Eat foods that are [...] and water are not available, use hand clinical dietitian. ?Change your dressing as told by your [...] 05/23/2016 Document Revised: 11/17/2018 Document Reviewed: 11/17/2018 [employer] Patient Education 2020 Inside Social. 01/15/2022 09:02:57 Kidney Stones, Kehp-re-Opun Kidney Stones Kidney stones are rock-like masses [...] Follow these instructions at home: Medicines Take taqh-yuf-ysncviu and prescription medicines only as told by [...] 10/13/2008 Document Revised: 09/13/2019 Document Reviewed: 09/13/2019 [employer] Patient Education 2020 Inside Social. Follow Up Care 01/14/2022 14:11:45 With:Franc SOMMERS, SAIMA Willis, URO Address: When: Unknown [facility] [place] 08-31-2022 Hospital Discharge instructions Patient Education 01/08/2022 15:01:38 Kidney Stones, Ngcv-qb-Ckfv Kidney Stones Kidney stones are rock-like masses [...] Follow these instructions at home: Medicines Take dmrk-bpu-jsswvtn and prescription medicines only as told by [...] 10/13/2008 Document Revised: 09/13/2019 Document Reviewed: 09/13/2019 [employer] Patient Education 2019 Inside Social. Follow Up Care 12/25/2021 13:11:33 With:BASIM WATSON, XUAN Fulton, URL Address: [address] [place] [address] When: Unknown [facility] Evaluation note* Encounter Date Diagnosis Assessment [...] weeks for the cough to go away [employer] Other 06-30-2022 Hospital Discharge instructions Patient Education [...] Follow these instructions at home: Medicines Take mnkf-bzw-zzjqiuv and prescription medicines only as told by [...] 05/16/2008 Document Revised: 08/08/2019 Document Reviewed: 03/18/2017 [employer] Patient Education 2019 Inside Social. Follow Up Care 10/30/2021 10:04:42 With:Susie Guzmán Address: [facility] [address], [place] [address]- Business (1) When:2 to 4 weeks Comments:Office follow-up with [facility] x-ray [facility]06-14-2022 Hospital Discharge instructions Patient Education 10/22/2021 12:00:24 Kidney Stones, Pujs-pv-Moic Kidney Stones Kidney stones are rock-like masses [...] Follow these instructions at home: Medicines Take uubg-qbj-gtqzuok and prescription medicines only as told by [...] 10/13/2008 Document Revised: 09/13/2019 Document Reviewed: 09/13/2019 [employer] Patient Education 2020 Inside Social. Follow Up Care 09/10/2021 11:16:40 With:Ramirez Russell MD, VANITA Santo Address: [facility] [address], [place] [address]- When:Within 6 Month(s) Comments:w/ CT abdomen with [facility] 05-18-2022 Evaluation note* Encounter Date Diagnosis Assessment Notes Treatment Notes Treatment Clinical Notes September, Iron deficiency anemia due to chronic blood loss (ICD-10 - D50.0) Patient did have IV iron twice last month and is getting one this month proceed with egd with push. [employer] Other Evaluation + Plan note Future Appointments Appointment Date:10/23/2021 01:15:00 PM Scheduled Provider: Location:[facility] Appointment Type:Surgery FT Appointment Date:11/21/2021 03:30:00 PM Scheduled Provider:Chad Salas MD Location:[facility] Appointment Type:Pain Management - Follow Up (FT) [facility] evaluation + Plan note Future Appointments Appointment Date:11/21/2021 03:30:00 PM Scheduled Provider:Chad Salas MD Location:[facility] [place] Appointment Type:[facility] Future App[facility]ments Appointment Date:11/07/2021 10:00:00 AM Scheduled Provider: Location:[facility] Appointment Type:Surgery FT Appointment Date:11/21/2021 03:30:00 PM Scheduled Provider:Chad Salas MD Location:[facility] Appointment Type:Pain Management - Follow Up (FT) Diagnostic Tests Pending * Urine Culture 10[facility]31/21 [facility] App[facility]ments Appointment Date:01/23/2022 01:00:00 PM Scheduled Provider:Chad Salas MD Location:[facility] [place] Appointment Type:[facility] - [facility] Future Appointments Appointment Date:03/27/2022 03:30:00 PM Scheduled Provider:Chad Salas MD Location:[facility] [place] Appointment Type:[facility] - [facility] Future Appointments Appointment Date:06/02/2022 12:45:00 PM Scheduled Provider:Indiana Walsh PA-C Location:[facility] [place] Appointment Type:[facility] Management - [facility] Future Appointments Appointment Date:07/04/2022 02:30:00 PM Scheduled Provider:Indiana Walsh PA-C Location:[facility] [place] Appointment Type:[facility] Management - [facility] Future Appointments Appointment Date:06/12/2022 12:00:00 PM Scheduled Provider: Location:FT.MRI Appointment Type:MRI Spine (FT) Appointment Date:07/04/2022 02:30:00 PM Scheduled Provider:Indiana Walsh PA-C Location:FT.[facility] [place] Appointment Type:Pain Management - Follow Up (FT) Future Scheduled Tests Radiology* MRI Spine Cervical w/o Contrast 06/12/22 * MRI Spine Lumbar w/o Contrast 06/12/22 [facility] noteNo [facility]Nothe [facility] [employer] Other Evaluation note* Diagnosis Cervical spondylosis with myelopathy- Primary [facility]* Diagnosis Cervical spondylosis with myelopathy [facility]* Diagnosis Cervical spondylosis with myelopathy- Primary documented in [facility] noteNo assessment information availableCleveland Clinic [facility] Work Phone: History general Narrative - Reported* [...] 2018 Surgical History BILATERAL KNEE REPLACEMENTS 201 8 2019 Surgical History NECK SPINAL CORD COMPRESSION GIORDANO RGERY 2019 Hospitalization History see above Hospitalization History DIVERTICULOSIS [employer] Other Hospital course Narrative No data available for this section [facility] [facility] Discharge instructions No data available for this section [facility] No data available for this section [facility] [employer] Summary Purpose Family History Relationship Condition Age at Onset Recorded Date/T [...] myelopathy Procedures MR NEURO IMAGE IMPORT(HERNAN) DOWNLOAD [employer]HARE IMAGES TO Christ Lee MD [address] [place] [address] [facility] [address] [place] [address] Referral ID Status Reason Start Date Expiration Date Visits Re quested Visits Authorized [id number] Closed 07/30/2022 07/30/2023 1 1 Referred by: Franc SOMMERS, Savannah Stanley Additional Source Comments INFORMATION SOURCE (unrecogn ized section and content) DATE CREATED AUTHOR 07/31/2018 [facility] DATE CREATED AUTHOR AUTHOR'S ORGANIZ ATION 07/01/2019 [facility] DATE CREATED AUTHOR AUTHOR'S ORGANIZ ATION 11/13/[address] [facility] DATE CREATED AUTHOR AUTHOR'S ORGANIZ ATION 10/04/2021 [facility] DATE CREATED AUTHOR AUTHOR'S ORGANIZ ATION 08/21/2022 [facility] DATE CREATED AUTHOR AUTHOR'S ORGANIZ ATION 09/17/2022 [facility] DATE CREATED AUTHOR AUTHOR'S ORGANIZ ATION 01/10/2023 [facility] DATE CREATED AUTHOR AUTHOR'S ORGANIZ ATION 06/04/2023 [facility] EPIC DATE CREATED AUTHOR AUTHOR'S ORGANIZ ATION 06/25/2023 [facility] DATE CREATED AUTHOR AUTHOR'S ORGANIZ ATION 07/12/2023 [facility] Care Team (unrecognized sect ion and content) Personnel Name: SANAZ LAKE MD Address: [address] [place] [address] [place] Name: Xuan Mckeon Personnel Name: SANAZ LAKE MD Address: [address] [address] [place] Name: Xuan Mckeon Personnel Name: SANAZ LAKE MD Address: [address] [address] [place] Name: Xuan Mckeon Personnel Name: SANAZ LAKE MD Address: [address] [address] [place] Name: Xuan Mckeon Personnel Name: SANAZ LAKE MD Address: [address] [address] [place] Name: Xuan Mckeon Personnel Name: SANAZ LAKE MD Address: [address] [address] [place] Name: Xuan Mckeon Personnel Name: SANAZ LAKE MD Address: [address] [address] [place] Name: Xuan Mckeon Personnel Name: SANAZ LAKE MD Address: [address] [address] [place] Name: Xuan Mckeon Personnel Name: SANAZ LAKE MD Address: [address] [facility], [address] [place] Name: Xuan Mckeon Personnel Name: SANAZ LAKE MD Address: Address: [address] [facility], [address] [place] Name: Xuan Mckeon Personnel Name: SANAZ LAKE MD Address: Address: [address] [facility], [address] [place] Name: Xuan Mckeon Personnel Name: SANAZ LAKE MD Address: Address: [address] [facility], [address] [place] Name: Xuan Mckeon Personnel Name: SANZA LAKE MD Address: Address: [address] [facility], [address] [place] Name: Xuan Mckeon Personnel Name: SANAZ LAKE MD Address: Address: [address] [facility], [address] [place] Name: Xuan Mckeon Personnel Name: SANAZ LAKE MD Address: Address: [address] [facility], [address] [place] Name: Xuan Mckeon Personnel Name: SANAZ LAKE MD Address: Address: [address] [facility], [address] [place] Name: Xuan Mckeon Personnel Name: SANAZ LAKE MD Address: Address: [address] [facility], [address] [place] Name: Xuan Mckeon Personnel Name: SANAZ LAKE MD Address: Address: [address] [facility], [address] [place] Name: Xuan Mcekon Personnel Name: Jed Piedra MD Address: Address: [address] Name: Xuan Mckeon Personnel Name: Jed Piedra MD Address: Address: [address] Name: Xuan Mckeon Personnel Name: Jed Piedra MD Address: Address: [facility] [address] Name: Xuan Mckeon Personnel Name: Jed Piedra MD Address: Address: [facility] [address] Name: Xuan Mckeon Personnel Name: Jed Piedra MD Address: Address: [facility] Sid [address] Name: Xuan Mckeon Personnel Name: Jed Piedra MD Address: Address: [facility] [address] Name: Xuan Mckeon REASON FOR VISIT (unrecogniz ed section and content) Specialty Diagnoses / Procedures Referred By Radha t Referred To Contact Radiology Diagnoses Cervical spondylosis with myelopathy Procedures MR NEURO IMAGE IMPORT(HERNAN) DOWNLOAD [employer] TO Christ Lee MD [address] [place] [address] [facility] [address] [place] [address] Referral ID Status Reason Start Date Expiration Date Visits Re quested Visits Authorized [id number] Closed 07/30/2022 07/30/2023 1 1 Reason Comments [...] BE BASED ON THE PRIMARY CLINICAL RECORDS. [employer] [facility]. provides no warranty or guarantee of the accuracy or completeness of information in this document.
== END 2023-07-16 11:43 | disposition home or self-care (01) ==
LOC: LAB 11:44
PROVIDERS: PCP Family Medicine; Visit Provider Otolaryngology
DX: E89.0 Postprocedural hypothyroidism (principal)
CPT/HCPCS: 36415; 84443

== ENCOUNTER 2024-06-24 14:07 | Outpatient (OUT) | payer MEDICARE, OTHER, SELFPAY ==
[2024-06-24 15:25] LABS: Chol HDL Ratio 2.5; Cholesterol 160 mg/dL (<=200); HDL Cholesterol 65 mg/dL (40-60); Triglycerides 114 mg/dL (<=150); VLDL CHOLESTEROL 22.8 mg/dL
== END 2024-06-24 14:08 | disposition home or self-care (01) ==
PROVIDERS: PCP Family Medicine; Visit Provider Nurse Practitioner Family
DX: E78.2 Mixed hyperlipidemia (principal)
CPT/HCPCS: 36415; 80061

== ENCOUNTER 2024-06-24 15:40 | Outpatient (OUT) | payer MEDICARE, OTHER, SELFPAY ==
[2024-06-24 15:58] LABS: Basophils Percent Auto 0.6 % (0.2-2.0); Eosinophils Absolute Auto 0.2 10^3/uL (0.0-0.7); Eosinophils Percent Auto 3.7 % (0.9-7.0); Hematocrit 38.5 % (36.0-48.0); Hemoglobin 12.6 g/dL (12.0-16.0); Immature Granulocytes Abs Auto 0.01 10^3/uL (0.00-0.03); Immature Granulocytes Pct Auto 0.2 % (0.0-0.5); Lymphocytes Absolute Auto 1.2 10^3/uL (1.2-3.8); Lymphocytes Percent Auto 23.1 % (20.5-60.0); Mean Corpuscular HGB Conc 32.7 g/dL (29.9-35.2); Mean Corpuscular Hemoglobin 31.4 pg (26.7-34.0); Mean Platelet Volume 9.6 fL (9.5-13.5); Monocytes Absolute Auto 0.5 10^3/uL (0.3-0.8); Monocytes Percent Auto 9.2 % (1.7-12.0); Neutrophils Absolute Auto 3.2 10^3/uL (1.4-6.5); Neutrophils Percent Auto 63.2 % (43.0-75.0); Platelet Count 215 10^3/uL (150-450); Red Blood Count 4.01 10^6/uL (4.20-5.40); White Blood Count 5.1 10^3/uL (4.0-11.0)
[2024-06-24 16:18] LABS: Alanine Aminotransferase 19 U/L (14-59); Albumin Globulin Ratio 1.1; Albumin Level 3.6 g/dL (3.4-5.0); Alkaline Phosphatase 91 U/L (46-116); Anion Gap 14.9; Aspartate Amino Transferase 11 U/L (15-37); BUN Creatinine Ratio 24.6; Bilirubin Total 0.4 mg/dL (0.2-1.0); Carbon Dioxide 26.6 mmol/L (21.0-32.0); Chloride 107 mmol/L (98-107); Estimated GFR (African America 50 (>=60 mL/min/1.73m^2); Estimated GFR (Non-African Ame 42 (>=60 mL/min/1.73m^2); Globulin 3.2 g/dL; Glucose 115 mg/dL (74-106); Magnesium 1.8 mg/dL (1.8-2.4); Phosphorus 3.5 mg/dL (2.6-4.7); Potassium 4.5 mmol/L (3.5-5.1); Sodium 144 mmol/L (136-145); Total Protein 6.8 g/dL (6.4-8.2)
== END 2024-06-24 15:41 | disposition home or self-care (01) ==
LOC: LAB 15:40
PROVIDERS: PCP Family Medicine; Visit Provider Registered Nurse
DX: M15.0 Primary generalized (osteo)arthritis (principal); M81.0 Age-related osteoporosis without current pathological fracture; Z79.899 Other long term (current) drug therapy; E78.2 Mixed hyperlipidemia
CPT/HCPCS: 36415; 80053; 80061; 83735; 84100; 85025

== ENCOUNTER 2024-11-07 19:46 | Emergency (ER) | payer MEDICARE, OTHER, SELFPAY ==
[2024-11-07 19:52] VITALS: BP 191/99; PULSE 66; TEMP 36.3; O2SAT 96; BMI 36.6
--- NOTE | 2024-11-07 20:17 | CT_ITS ---
The [facility] [address] [place], [place] [address] Patient Name: BRAYDEN LNIDER MRN: [id number] date: 1950 Sex: F Assigned Patient Location: ED.MAIN Current Patient Location: ED.MAIN Accession/Order Number: [id number] Exam Date: 11/07/2024 22:09 Report Date: 11/07/2024 22:17 At the request of: DALLIN KING Procedure: CT abdomen pelvis w con CT Abdomen and Pelvis withcontrast TECHNIQUE: Axial imaging with 2-D reconstruction.100 cc of Omni 300. The CT exam was performed using one or more the following dose reduction techniques: Automated exposure control, adjustment of the MA and/or Kv according to patient size, or use of the iterative reconstruction technique. COMPARISON: None History: Diarrhea. Left lower abdominal pain. LIMITATIONS: None LOWER THORAX Unremarkable LIVER: Unremarkable GALLBLADDER: Cholecystectomy clips identified. BILE DUCTS: No dilatation SPLEEN: Unremarkable PANCREAS: Unremarkable ADRENAL GLANDS: Unremarkable KIDNEYS:Tiny bilateral renal cysts. Bilateral nephrolithiasis. Left renal pelvis stone measures up to 2 cm. 7 mm stone is in the left ureteropelvic junction. Mild hydronephrosis. Additional smaller left renal calculi. 15 mm right renal pelvis stone. No right hydronephrosis. AORTA: No abdominal aortic aneurysm identified. RETROPERITONEUM: No significant retroperitoneal abnormalities identified. MESENTERY:Unremarkable STOMACH:Unremarkable SMALL BOWEL: The small bowel loops are nondistended. APPENDIX: The appendix is normal. COLON: Large amount stool in the rectum with diameter up to 8 cm. Mild wall thickening. Mild adjacent stranding. In nondistended colon. URINARY BLADDER: Urinary bladder is unremarkable. REPRODUCTIVE SYSTEM: Reproductive structures are unremarkable. PNEUMOPERITONEUM: None PERITONEAL FLUID:None BONY STRUCTURES: There are mild scoliosis. Extensive multilevel lumbar degeneration ABDOMINAL WALL: Unremarkable CT/CT abdomen pelvis w con IMPRESSION: Fecal impaction with findings suggesting stercoral colitis. No bowel obstruction. Bilateral nephrolithiasis with large renal pelvis calculi. Obstructing 7 mm left UPJ calculus with mild hydronephrosis. Impression dictated by: Federico Camacho M.D. 11/07/2024 10:17 PM Dictation Location: [employer] Electronically authenticated by: [id number] Y Date: 11/07/2024 22:17
--- NOTE | 2024-11-07 20:22 | ED.GENADUL1 ---
Documented by User: FERNANDO Brooks 11/07/24 21:43 HPI HPI - General Adult General Chief complaint: Nausea/Vomiting/Diarrhea Stated complaint: DIARRHEA Time Seen by Provider: 11/07/24 19:59 Source: patient Mode of arrival: Wheelchair Limitations: no limitations History of Present Illness HPI narrative: Patient is a 74-year-old female with a history of C. difficile, diverticulitis who presents to the emergency department for frequent stools over the last 24 hours. Patient states she has had diarrhea every 15 to 20 minutes for the last day. She states she believes that is starting to slow today. She reports some discomfort to the left lower quadrant. She has had a previous cholecystectomy, appendectomy, hysterectomy, tubal ligation. She reports decreased urination today she is not taking in much. She has had no fevers or vomiting. She does not know if there has been any blood in her stool. Family was concerned about potential C. difficile because the patient had multiple antibiotics several weeks ago for a dental procedure. She states the bowel movements have been painful because she has hemorrhoids. Related Data Home Medications ?Medication ?Instructions ?Recorded ?Confirmed atorvastatin 40 mg tablet mg 11/07/24 bisoprolol fumarate 10 mg tablet mg 11/07/24 clindamycin HCl 150 mg capsule mg 11/07/24 doxepin 10 mg capsule mg 11/07/24 furosemide 20 mg tablet mg 11/07/24 furosemide 40 mg tablet mg 11/07/24 gabapentin 300 mg capsule mg 11/07/24 isosorbide mononitrate 120 mg mg PO 11/07/24 tablet,extended release 24 hr latanoprost 0.005 % eye drops drp ophthalmic (eye) 11/07/24 levothyroxine 125 mcg tablet mcg 11/07/24 omeprazole 20 mg capsule,delayed mg 11/07/24 release potassium chloride 10 mEq meq PO 11/07/24 tablet,extended release pregabalin 150 mg capsule mg 11/07/24 ranolazine 1,000 mg mg PO 11/07/24 tablet,extended release,12 hr sertraline 50 mg tablet mg 11/07/24 tizanidine 4 mg tablet mg 11/07/24 Previous Rx's ?Medication ?Instructions ?Recorded cephalexin 500 mg capsule 500 mg PO TID 7 days #21 caps 11/08/24 Allergies Allergy/AdvReac Type Severity Reaction Status Date / Time amoxicillin Allergy rash Verified 11/07/24 19:57 Opioid HPI Opioid Management Most Recent Opioid Data: Last Pain Scale 8 Today, 00:38 Last MAR Pain Assessment Today, 00:38 Review of Systems ROS Constitutional Denies: fever or chills Ears, nose, mouth, and throat Denies: throat pain or nasal congestion Cardiovascular Denies: chest pain Respiratory Denies: shortness of breath or cough Gastrointestinal Reports: abdominal pain and diarrhea Genitourinary Reports: decreased urine ouput Integumentary/Breast Denies: rash Neurological Denies: numbness in extremities or weakness in extremities Hematologic/Lymphatic Denies: easy bruising or easy bleeding PFSH PFSH Social History Little interest or pleasure in doing things: not at all Feeling down, depressed, or hopeless: not at all Exam Narrative Exam Narrative: Gen.: Awake, alert, in no distress Head: Normocephalic, atraumatic ENT: Moist mucous membranes Respiratory: No respiratory distress, lungs clear bilaterally Cardio: Regular rate and rhythm Gastrointestinal: Abdomen is soft, obese, minimally tender in the mid abdomen and left lower quadrant. No guarding or rebound Extremities: Moves extremities equally, no injuries noted Psych: Normal mood and affect Neuro: No focal neuro deficit Skin: Warm, dry, intact Constitutional Vital Signs, click to edit/add: Last Vital Signs Temp 97.4 F L 11/07/24 19:52 Pulse 66 11/08/24 01:23 Resp 14 11/08/24 01:23 BP 139/88 11/08/24 01:23 Pulse Ox 94 L 11/08/24 01:23 O2 Del Method Room Air 11/08/24 01:23 Course Vital Signs Vital signs: Vital Signs Temperature 97.4 F L 11/07/24 19:52 Pulse Rate 66 11/07/24 19:52 Respiratory Rate 20 11/07/24 19:52 Blood Pressure 191/99 H 11/07/24 19:52 Pulse Oximetry 96 11/07/24 19:52 Oxygen Delivery Method Room Air 11/07/24 19:52 Temperature 97.4 F L 11/07/24 19:52 Pulse Rate 66 11/08/24 01:23 Respiratory Rate 14 11/08/24 01:23 Blood Pressure 139/88 11/08/24 01:23 Pulse Oximetry 94 L 11/08/24 01:23 Oxygen Delivery Method Room Air 11/08/24 01:23 Medical Decision Making MDM Narrative Medical decision making narrative: 2141: Stool culture was sent, C. difficile test is pending. Patient given IV fluids and medication for comfort in the ER. Abdomen is soft and benign. Laboratory studies show minimal leukocytosis and slightly elevated lactic acid which will be repeated. Patient has been sent for CT, the remainder of the labs and CT results are pending at this time. Case is turned over to attending physician for reevaluation and disposition. SHARED APC VISIT, PHYSICIAN ATTESTATION: [id number] I performed a substantive part of the MDM during the patient?s E/M visit. I personally evaluated and examined the patient. I personally made or approved the documented management plan and acknowledge its risk of complications. Medical Records Medical records reviewed: Yes I reviewed the patient's medical records Lab Data Lab results reviewed: Yes I reviewed the patient's lab results Labs: Lab Results 11/07/24 11/07/24 11/07/24 Range/Units 20:33 20:43 21:50 WBC 11.6 H (4.0-11.0) 10^3/uL RBC 4.24 (4.20-5.40) 10^6/uL Hgb 13.5 (12.0-16.0) g/dL Hct 40.2 (36.0-48.0) % MCV 94.8 (81.0-99.0) fL MCH 31.8 (26.7-34.0) pg MCHC 33.6 (29.9-35.2) g/dL RDW 13.1 (11.0-15.0) % Plt Count 249 (150-450) 10^3/uL MPV 9.7 (9.5-13.5) fL Neut % (Auto) 81.4 H (43.0-75.0) % Lymph % (Auto) 9.6 L (20.5-60.0) % [place] % (Auto) 8.0 (1.7-12.0) % Eos % (Auto) 0.1 L (0.9-7.0) % Baso % (Auto) 0.3 (0.2-2.0) % Neut # (Auto) 9.5 H (1.4-6.5) 10^3/uL Lymph # (Auto) 1.1 L (1.2-3.8) 10^3/uL [place] # (Auto) 0.9 H (0.3-0.8) 10^3/uL Eos # (Auto) 0.0 (0.0-0.7) 10^3/uL Baso # (Auto) 0.0 (0.0-0.1) 10^3/uL Abs Immat Gran (auto) 0.07 H (0.00-0.03) 10^3/uL Imm/Tot Granulo (auto) 0.6 H (0.0-0.5) % Sodium 142 (136-145) mmol/L Potassium 3.9 (3.5-5.1) mmol/L Chloride 104 (98-107) mmol/L Carbon Dioxide 26.0 (21.0-32.0) mmol/L Anion Gap 15.9 BUN 21.0 H (7.0-18.0) mg/dL Creatinine 1.37 H (0.55-1.02) mg/dL Est GFR ( Amer) 46 L (>=60 mL/min/1.73m^2) Est GFR (Non-Af Amer) 38 L (>=60 mL/min/1.73m^2) BUN/Creatinine Ratio 15.3 Glucose 150 H (74-106) mg/dL Lactate 2.4 H* 3.0 H* (0.4-2.0) mmol/L Calcium 9.5 (8.5-10.1) mg/dL Total Bilirubin 0.9 (0.2-1.0) mg/dL AST 15 (15-37) U/L ALT 15 (14-59) U/L Alkaline Phosphatase 115 (46-116) U/L Total Protein 7.5 (6.4-8.2) g/dL Albumin 3.8 (3.4-5.0) g/dL Globulin 3.7 g/dL Albumin/Globulin Ratio 1.0 Lipase 23.0 (16.0-77.0) U/L Urine Color (YELLOW) Urine Clarity (CLEAR) Urine pH (5.0-9.0) Ur Specific [place] (1.005-1.025) Urine Protein (NEG/TRACE) mg/dL Urine Glucose (UA) (NEGATIVE) mg/dL Urine Ketones (NEGATIVE) mg/dL Urine Occult Blood (NEGATIVE) Urine Nitrite (NEGATIVE) Urine Bilirubin (NEGATIVE) Urine Urobilinogen (0.2-1.0) EU/dL Ur Leukocyte Esterase (NEGATIVE) Urine RBC (0-2) #/HPF Urine WBC (NONE SEEN) #/HPF Ur Squamous Epith Cells (NONE/RARE) #/LPF Urine Crystals (None Seen) #/HPF Urine Bacteria (NONE SEEN) #/HPF Urine Casts (NONE SEEN) #/LPF Urine Mucus (NONE SEEN) Ur Culture Indicated? C. difficile Toxin PCR Negative 11/07/24 11/08/24 Range/Units 23:16 00:14 WBC (4.0-11.0) 10^3/uL RBC (4.20-5.40) 10^6/uL Hgb (12.0-16.0) g/dL Hct (36.0-48.0) % MCV (81.0-99.0) fL MCH (26.7-34.0) pg MCHC (29.9-35.2) g/dL RDW (11.0-15.0) % Plt Count (150-450) 10^3/uL MPV (9.5-13.5) fL Neut % (Auto) (43.0-75.0) % Lymph % (Auto) (20.5-60.0) % [place] % (Auto) (1.7-12.0) % Eos % (Auto) (0.9-7.0) % Baso % (Auto) (0.2-2.0) % Neut # (Auto) (1.4-6.5) 10^3/uL Lymph # (Auto) (1.2-3.8) 10^3/uL [place] # (Auto) (0.3-0.8) 10^3/uL Eos # (Auto) (0.0-0.7) 10^3/uL Baso # (Auto) (0.0-0.1) 10^3/uL Abs Immat Gran (auto) (0.00-0.03) 10^3/uL Imm/Tot Granulo (auto) (0.0-0.5) % Sodium (136-145) mmol/L Potassium (3.5-5.1) mmol/L Chloride (98-107) mmol/L Carbon Dioxide (21.0-32.0) mmol/L Anion Gap BUN (7.0-18.0) mg/dL Creatinine (0.55-1.02) mg/dL Est GFR ( Amer) (>=60 mL/min/1.73m^2) Est GFR (Non-Af Amer) (>=60 mL/min/1.73m^2) BUN/Creatinine Ratio Glucose (74-106) mg/dL Lactate 1.7 (0.4-2.0) mmol/L Calcium (8.5-10.1) mg/dL Total Bilirubin (0.2-1.0) mg/dL AST (15-37) U/L ALT (14-59) U/L Alkaline Phosphatase (46-116) U/L Total Protein (6.4-8.2) g/dL Albumin (3.4-5.0) g/dL Globulin g/dL Albumin/Globulin Ratio Lipase (16.0-77.0) U/L Urine Color Lt. yellow (YELLOW) Urine Clarity Cloudy A (CLEAR) Urine pH 6.0 (5.0-9.0) Ur Specific [place] <=1.005 A (1.005-1.025) Urine Protein Trace (NEG/TRACE) mg/dL Urine Glucose (UA) Negative (NEGATIVE) mg/dL Urine Ketones Negative (NEGATIVE) mg/dL Urine Occult Blood Large A (NEGATIVE) Urine Nitrite Negative (NEGATIVE) Urine Bilirubin Negative (NEGATIVE) Urine Urobilinogen 0.2 (0.2-1.0) EU/dL Ur Leukocyte Esterase Small A (NEGATIVE) Urine RBC 50-75 A (0-2) #/HPF Urine WBC 2-5 A (NONE SEEN) #/HPF Ur Squamous Epith Cells Few A (NONE/RARE) #/LPF Urine Crystals None seen (None Seen) #/HPF Urine Bacteria Large A (NONE SEEN) #/HPF Urine Casts None seen (NONE SEEN) #/LPF Urine Mucus None seen (NONE SEEN) Ur Culture Indicated? Yes-[facility] [place] C. difficile Toxin PCR Discharge Plan Discharge Chief Complaint: Nausea/Vomiting/Diarrhea Clinical Impression: Acute diarrhea, Fecal impaction, Acute UTI, Ureterolithiasis Patient Disposition: Home, Self-Care Time of Disposition Decision: 01:15 Condition: Good Mode of Transportation: Private Vehicle Prescriptions / Home Meds: New cephalexin 500 mg capsule 500 mg PO TID 7 Days Qty: 21 0RF No Action furosemide 40 mg tablet latanoprost 0.005 % drops OPHTHALMIC (EYE) atorvastatin 40 mg tablet tizanidine 4 mg tablet clindamycin HCl 150 mg capsule potassium chloride 10 mEq tablet extended release PO doxepin 10 mg capsule bisoprolol fumarate 10 mg tablet isosorbide mononitrate 120 mg tablet extended release 24 hr PO levothyroxine 125 mcg tablet gabapentin 300 mg capsule omeprazole 20 mg capsule,delayed release(DR/EC) furosemide 20 mg tablet sertraline 50 mg tablet pregabalin 150 mg capsule ranolazine 1,000 mg tablet extended release 12 hr PO Print Language: Hebrew Instructions: Urinary Tract Infection in Women (ED), Fecal Impaction (ED), Ureteral Stones (ED) Additional Instructions: Drink extra fluids. Tylenol for pain as needed. Take a stool softener regularly to prevent constipation. Follow-up with urologist and personnel training officer for further management of chronic kidney disease and kidney stones. Eat 2 tablespoonfuls of probiotic containing yogurt daily while on antibiotics. Return for worsening symptoms. Referrals: JED PIEDRA [Primary Care Provider, Family Practice] - 1 week Documented by User: David Douglas MD 11/08/24 01:43 HPI HPI - General Adult General Chief complaint: Nausea/Vomiting/Diarrhea Stated complaint: DIARRHEA Time Seen by Provider: 11/07/24 19:59 Related Data Home Medications ?Medication ?Instructions ?Recorded ?Confirmed atorvastatin 40 mg tablet mg 11/07/24 bisoprolol fumarate 10 mg tablet mg 11/07/24 clindamycin HCl 150 mg capsule mg 11/07/24 doxepin 10 mg capsule mg 11/07/24 furosemide 20 mg tablet mg 11/07/24 furosemide 40 mg tablet mg 11/07/24 gabapentin 300 mg capsule mg 11/07/24 isosorbide mononitrate 120 mg mg PO 11/07/24 tablet,extended release 24 hr latanoprost 0.005 % eye drops drp ophthalmic (eye) 11/07/24 levothyroxine 125 mcg tablet mcg 11/07/24 omeprazole 20 mg capsule,delayed mg 11/07/24 release potassium chloride 10 mEq meq PO 11/07/24 tablet,extended release pregabalin 150 mg capsule mg 11/07/24 ranolazine 1,000 mg mg PO 11/07/24 tablet,extended release,12 hr sertraline 50 mg tablet mg 11/07/24 tizanidine 4 mg tablet mg 11/07/24 Previous Rx's ?Medication ?Instructions ?Recorded cephalexin 500 mg capsule 500 mg PO TID 7 days #21 caps 11/08/24 Allergies Allergy/AdvReac Type Severity Reaction Status Date / Time amoxicillin Allergy rash Verified 11/07/24 19:57 Opioid HPI Opioid Management Most Recent Opioid Data: Last Pain Scale 8 Today, 00:38 Last MAR Pain Assessment Today, 00:38 PFSH PFS Social History Little interest or pleasure in doing things: not at all Feeling down, depressed, or hopeless: not at all Exam Constitutional Vital Signs, click to edit/add: Last Vital Signs Temp 97.4 F L 11/07/24 19:52 Pulse 66 11/08/24 01:23 Resp 14 11/08/24 01:23 BP 139/88 11/08/24 01:23 Pulse Ox 94 L 11/08/24 01:23 O2 Del Method Room Air 11/08/24 01:23 Course Vital Signs Vital signs: Vital Signs Temperature 97.4 F L 11/07/24 19:52 Pulse Rate 66 11/07/24 19:52 Respiratory Rate 20 11/07/24 19:52 Blood Pressure 191/99 H 11/07/24 19:52 Pulse Oximetry 96 11/07/24 19:52 Oxygen Delivery Method Room Air 11/07/24 19:52 Temperature 97.4 F L 11/07/24 19:52 Pulse Rate 66 11/08/24 01:23 Respiratory Rate 14 11/08/24 01:23 Blood Pressure 139/88 11/08/24 01:23 Pulse Oximetry 94 L 11/08/24 01:23 Oxygen Delivery Method Room Air 11/08/24 01:23 Medical Decision Making MDM Narrative Medical decision making narrative: 2141: Stool culture was sent, C. difficile test is pending. Patient given IV fluids and medication for comfort in the ER. Abdomen is soft and benign. Laboratory studies show minimal leukocytosis and slightly elevated lactic acid which will be repeated. Patient has been sent for CT, the remainder of the labs and CT results are pending at this time. Case is turned over to attending physician for reevaluation and disposition. SHARED APC VISIT, PHYSICIAN ATTESTATION: [id number] I performed a substantive part of the MDM during the patient?s E/M visit. I personally evaluated and examined the patient. I personally made or approved the documented management plan and acknowledge its risk of complications. Patient was administered Dilaudid 0.5 mg IV for pain with good results. She finally had a large bowel movement and passed the fecal impaction and feels much better. CT scan of the abdomen pelvis did reveal a fecal impaction in the rectum with evidence of stercoral colitis. Patient has obstructing proximal left UPJ calculus and large calculus in the right kidney. She in the past she has been advised outpatient nephrology follow-up for her chronic kidney disease but did not keep that appointment. I have advised her to contact her urologist as well as personnel training officer for further management. She is advised to take a stool softener regularly so she does not end up with constipation and fecal impaction again. She is stable for discharge and feels much better. She is to return anytime for worsening symptoms. She does have evidence of UTI for which she is placed on Keflex. Because of her past history of C. difficile enterocolitis, she is advised to take a probiotic daily for the duration of her antibiotic therapy. Lab Data Labs: Lab Results 11/07/24 11/07/24 11/07/24 Range/Units 20:33 20:43 21:50 WBC 11.6 H (4.0-11.0) 10^3/uL RBC 4.24 (4.20-5.40) 10^6/uL Hgb 13.5 (12.0-16.0) g/dL Hct 40.2 (36.0-48.0) % MCV 94.8 (81.0-99.0) fL MCH 31.8 (26.7-34.0) pg MCHC 33.6 (29.9-35.2) g/dL RDW 13.1 (11.0-15.0) % Plt Count 249 (150-450) 10^3/uL MPV 9.7 (9.5-13.5) fL Neut % (Auto) 81.4 H (43.0-75.0) % Lymph % (Auto) 9.6 L (20.5-60.0) % [place] % (Auto) 8.0 (1.7-12.0) % Eos % (Auto) 0.1 L (0.9-7.0) % Baso % (Auto) 0.3 (0.2-2.0) % Neut # (Auto) 9.5 H (1.4-6.5) 10^3/uL Lymph # (Auto) 1.1 L (1.2-3.8) 10^3/uL [place] # (Auto) 0.9 H (0.3-0.8) 10^3/uL Eos # (Auto) 0.0 (0.0-0.7) 10^3/uL Baso # (Auto) 0.0 (0.0-0.1) 10^3/uL Abs Immat Gran (auto) 0.07 H (0.00-0.03) 10^3/uL Imm/Tot Granulo (auto) 0.6 H (0.0-0.5) % Sodium 142 (136-145) mmol/L Potassium 3.9 (3.5-5.1) mmol/L Chloride 104 (98-107) mmol/L Carbon Dioxide 26.0 (21.0-32.0) mmol/L Anion Gap 15.9 BUN 21.0 H (7.0-18.0) mg/dL Creatinine 1.37 H (0.55-1.02) mg/dL Est GFR ( Amer) 46 L (>=60 mL/min/1.73m^2) Est GFR (Non-Af Amer) 38 L (>=60 mL/min/1.73m^2) BUN/Creatinine Ratio 15.3 Glucose 150 H (74-106) mg/dL Lactate 2.4 H* 3.0 H* (0.4-2.0) mmol/L Calcium 9.5 (8.5-10.1) mg/dL Total Bilirubin 0.9 (0.2-1.0) mg/dL AST 15 (15-37) U/L ALT 15 (14-59) U/L Alkaline Phosphatase 115 (46-116) U/L Total Protein 7.5 (6.4-8.2) g/dL Albumin 3.8 (3.4-5.0) g/dL Globulin 3.7 g/dL Albumin/Globulin Ratio 1.0 Lipase 23.0 (16.0-77.0) U/L Urine Color (YELLOW) Urine Clarity (CLEAR) Urine pH (5.0-9.0) Ur Specific [place] (1.005-1.025) Urine Protein (NEG/TRACE) mg/dL Urine Glucose (UA) (NEGATIVE) mg/dL Urine Ketones (NEGATIVE) mg/dL Urine Occult Blood (NEGATIVE) Urine Nitrite (NEGATIVE) Urine Bilirubin (NEGATIVE) Urine Urobilinogen (0.2-1.0) EU/dL Ur Leukocyte Esterase (NEGATIVE) Urine RBC (0-2) #/HPF Urine WBC (NONE SEEN) #/HPF Ur Squamous Epith Cells (NONE/RARE) #/LPF Urine Crystals (None Seen) #/HPF Urine Bacteria (NONE SEEN) #/HPF Urine Casts (NONE SEEN) #/LPF Urine Mucus (NONE SEEN) Ur Culture Indicated? C. difficile Toxin PCR Negative 11/07/24 11/08/24 Range/Units 23:16 00:14 WBC (4.0-11.0) 10^3/uL RBC (4.20-5.40) 10^6/uL Hgb (12.0-16.0) g/dL Hct (36.0-48.0) % MCV (81.0-99.0) fL MCH (26.7-34.0) pg MCHC (29.9-35.2) g/dL RDW (11.0-15.0) % Plt Count (150-450) 10^3/uL MPV (9.5-13.5) fL Neut % (Auto) (43.0-75.0) % Lymph % (Auto) (20.5-60.0) % [place] % (Auto) (1.7-12.0) % Eos % (Auto) (0.9-7.0) % Baso % (Auto) (0.2-2.0) % Neut # (Auto) (1.4-6.5) 10^3/uL Lymph # (Auto) (1.2-3.8) 10^3/uL [place] # (Auto) (0.3-0.8) 10^3/uL Eos # (Auto) (0.0-0.7) 10^3/uL Baso # (Auto) (0.0-0.1) 10^3/uL Abs Immat Gran (auto) (0.00-0.03) 10^3/uL Imm/Tot Granulo (auto) (0.0-0.5) % Sodium (136-145) mmol/L Potassium (3.5-5.1) mmol/L Chloride (98-107) mmol/L Carbon Dioxide (21.0-32.0) mmol/L Anion Gap BUN (7.0-18.0) mg/dL Creatinine (0.55-1.02) mg/dL Est GFR ( Amer) (>=60 mL/min/1.73m^2) Est GFR (Non-Af Amer) (>=60 mL/min/1.73m^2) BUN/Creatinine Ratio Glucose (74-106) mg/dL Lactate 1.7 (0.4-2.0) mmol/L Calcium (8.5-10.1) mg/dL Total Bilirubin (0.2-1.0) mg/dL AST (15-37) U/L ALT (14-59) U/L Alkaline Phosphatase (46-116) U/L Total Protein (6.4-8.2) g/dL Albumin (3.4-5.0) g/dL Globulin g/dL Albumin/Globulin Ratio Lipase (16.0-77.0) U/L Urine Color Lt. yellow (YELLOW) Urine Clarity Cloudy A (CLEAR) Urine pH 6.0 (5.0-9.0) Ur Specific [place] <=1.005 A (1.005-1.025) Urine Protein Trace (NEG/TRACE) mg/dL Urine Glucose (UA) Negative (NEGATIVE) mg/dL Urine Ketones Negative (NEGATIVE) mg/dL Urine Occult Blood Large A (NEGATIVE) Urine Nitrite Negative (NEGATIVE) Urine Bilirubin Negative (NEGATIVE) Urine Urobilinogen 0.2 (0.2-1.0) EU/dL Ur Leukocyte Esterase Small A (NEGATIVE) Urine RBC 50-75 A (0-2) #/HPF Urine WBC 2-5 A (NONE SEEN) #/HPF Ur Squamous Epith Cells Few A (NONE/RARE) #/LPF Urine Crystals None seen (None Seen) #/HPF Urine Bacteria Large A (NONE SEEN) #/HPF Urine Casts None seen (NONE SEEN) #/LPF Urine Mucus None seen (NONE SEEN) Ur Culture Indicated? Yes-[facility] [place] C. difficile Toxin PCR Discharge Plan Discharge Chief Complaint: Nausea/Vomiting/Diarrhea Clinical Impression: Acute diarrhea, Fecal impaction, Acute UTI, Ureterolithiasis Patient Disposition: Home, Self-Care Time of Disposition Decision: 01:15 Condition: Good Mode of Transportation: Private Vehicle Prescriptions / Home Meds: New cephalexin 500 mg capsule 500 mg PO TID 7 Days Qty: 21 0RF No Action furosemide 40 mg tablet latanoprost 0.005 % drops OPHTHALMIC (EYE) atorvastatin 40 mg tablet tizanidine 4 mg tablet clindamycin HCl 150 mg capsule potassium chloride 10 mEq tablet extended release PO doxepin 10 mg capsule bisoprolol fumarate 10 mg tablet isosorbide mononitrate 120 mg tablet extended release 24 hr PO levothyroxine 125 mcg tablet gabapentin 300 mg capsule omeprazole 20 mg capsule,delayed release(DR/EC) furosemide 20 mg tablet sertraline 50 mg tablet pregabalin 150 mg capsule ranolazine 1,000 mg tablet extended release 12 hr PO Print Language: Hebrew Instructions: Urinary Tract Infection in Women (ED), Fecal Impaction (ED), Ureteral Stones (ED) Additional Instructions: Drink extra fluids. Tylenol for pain as needed. Take a stool softener regularly to prevent constipation. Follow-up with urologist and personnel training officer for further management of chronic kidney disease and kidney stones. Eat 2 tablespoonfuls of probiotic containing yogurt daily while on antibiotics. Return for worsening symptoms. Referrals: JED PIEDRA [Primary Care Provider, Family Practice] - 1 week
[2024-11-07 20:57] LABS: Hematocrit 40.2 % (36.0-48.0); Hemoglobin 13.5 g/dL (12.0-16.0); Immature Granulocytes Abs Auto 0.07 10^3/uL (0.00-0.03); Immature Granulocytes Pct Auto 0.6 % (0.0-0.5); Lymphocytes Absolute Auto 1.1 10^3/uL (1.2-3.8); Mean Corpuscular HGB Conc 33.6 g/dL (29.9-35.2); Mean Corpuscular Hemoglobin 31.8 pg (26.7-34.0); Mean Corpuscular Volume 94.8 fL (81.0-99.0); Platelet Count 249 10^3/uL (150-450); Red Blood Count 4.24 10^6/uL (4.20-5.40); White Blood Count 11.6 10^3/uL (4.0-11.0)
[2024-11-07] MEDS: LIDOCAINE 2% JELLY 20 ML UR (20:59)
[2024-11-07] MEDS: 0.9 % SODIUM CHLORIDE 1,000 ML 999 ML IV (20:59)
[2024-11-07] MEDS: HYOSCYAMINE SULFATE 0.125 MG TAB.SUBL SL (20:59)
[2024-11-07 21:20] LABS: Alanine Aminotransferase 15 U/L (14-59); Albumin Globulin Ratio 1.0; Albumin Level 3.8 g/dL (3.4-5.0); Alkaline Phosphatase 115 U/L (46-116); Anion Gap 15.9; Aspartate Amino Transferase 15 U/L (15-37); Blood Urea Nitrogen 21.0 mg/dL (7.0-18.0); Calcium 9.5 mg/dL (8.5-10.1); Carbon Dioxide 26.0 mmol/L (21.0-32.0); Chloride 104 mmol/L (98-107); Estimated GFR (African America 46 (>=60 mL/min/1.73m^2); Estimated GFR (Non-African Ame 38 (>=60 mL/min/1.73m^2); Globulin 3.7 g/dL; Glucose 150 mg/dL (74-106); Lipase 23.0 U/L (16.0-77.0); Potassium 3.9 mmol/L (3.5-5.1); Sodium 142 mmol/L (136-145); Total Protein 7.5 g/dL (6.4-8.2)
[2024-11-07 21:22] LABS: Lactate/Lactic Acid 2.4 mmol/L (0.4-2.0)
[2024-11-07 21:40] LABS: C. Difficile PCR NEGATIVE
[2024-11-07 22:28] LABS: Lactate/Lactic Acid 3.0 mmol/L (0.4-2.0)
[2024-11-07 23:49] LABS: Lactate/Lactic Acid 1.7 mmol/L (0.4-2.0)
[2024-11-08 00:30] LABS: Glucose Urine UA NEGATIVE (NEGATIVE)
[2024-11-08] MEDS: HYDROMORPHONE HCL 0.5 MG/0.5 ML SYRINGE IV (00:38)
[2024-11-08 00:49] LABS: Cast Seen? NONE SEEN #/LPF (NONE SEEN); Crystals Seen? None Seen #/HPF (None Seen); Urine Culture Indicated YES-FRMC
--- NOTE | 2024-11-08 00:53 | PC.NURSE ---
Pt up to commode with SBA. Walks with a steady gait. She urinated and had a very large BM consisting of soft brown logs. No blood visualized. Back to room. Dilaudid administered with pain relief that tolerable.
[2024-11-08 01:06] VITALS: BP 162/89; O2SAT 96
[2024-11-08 01:23] VITALS: BP 139/88; PULSE 66; O2SAT 94
== END 2024-11-08 01:56 | disposition home or self-care (01) ==
PROVIDERS: Physician Assistant; Emergency Provider Emergency Medicine; PCP Family Medicine
DX: R19.7 Diarrhea, unspecified (principal); N20.1 Calculus of ureter; N39.0 Urinary tract infection, site not specified; R10.32 Left lower quadrant pain; K56.41 Fecal impaction; Z90.49 Acquired absence of other specified parts of digestive tract; Z90.710 Acquired absence of both cervix and uterus; Z98.51 Tubal ligation status
CPT/HCPCS: 36415; 74177; 80053; 81001; 83605; 83690; 85025; 87045; 87046; 87086; 87427; 87493; 96361; 96374; 96375; 99285; J1171; J2405; Q9967

== ENCOUNTER 2024-12-14 12:47 | Outpatient (OUT) | payer MEDICARE, OTHER, SELFPAY ==
--- OUTSIDE RECORDS SUMMARY | 2024-12-14 12:49 | XMS_ITS | Encounter Summary ---
Author Organization [facility] Address [address] [place] [address] Care Team Providers Care Fence Machine Operator Name Role Phone Amilcar Cordova MD Primary Care Provider Nico Deluna OD Unavailable Deb Bray FILTER TANK OPERATOR Unavailable [phone] Veronica Amos DO Unavailable [phone] Encounter Details Date Type Department Care Team (Late st Contact Info) Description 02/26/2024 Orders Only [facility] [address] [place] [address] Ines Ceballos [address] [place] [address] Postoperative hypothyroidism ; Papillary microcarcinoma of thyroid (HCC) Social History Tobacco Use Types Packs/Day Years Used Date Smoking Tobacco: Former Cigarettes Q uit: 04/10/2021 Smokeless Tobacco: Never Alcohol Use Standard Drinks/Week Comments Yes 0 (1 standard drink = 0.6 oz pur e alcohol) Comments Unknown Sex and Gender Information Value Date Recorded Sex Assigned at Not on file Legal Sex Female 6:50 PM EDT Gender Identity Not on file Sexual Orientation Not on file documented as of this encounter Plan of Treatment Upcoming Encounters Date Type Department Care Team (Late st Contact Info) Description 01/19/2025 1:00 PM EDT Office Visit [facility] [address] [place] [id number] Josselin Mckay PA [address] [place] [id number] 01/25/2025 2:00 PM EDT Office Visit [facility] [address] [place] [phone] Mohit Glaser DO [address] [place] [address] documented as of this encounter Visit Diagnoses Diagnosis Postoperative hypothyroidism Postsurgical hypothyroidism Papillary microcarcinoma of thyroid (HCC) documented in this encounter Care Teams Fence Machine Operator Relationship Specialty Start Date End Date Amilcar Cordova MD [address] [facility] [place] [address] PCP - General Family Medicine 04/24/23 Nico Deluna OD [address] [place] [address] Referring Physician Optometry 11/10/23 Deb Bray NP [address] [place] [address] Nurse Practitioner Neurology 07/21/24 Veronica Amos DO [address] [place] [address] Referring Physician Neurology 07/21/24 documented as of this encounter
--- OUTSIDE RECORDS SUMMARY | 2024-12-14 12:49 | XMS_ITS | Clinical Summary ---
Author Organization [facility] Address [address] [place], [place] [id number] Care Team Providers Care Associate Professor Of Literacy Name Role Phone Florecita Lake MD Primary Care Provider Sena Reed Unavailable Allergies No known active allergies Medications bisoprolol-hydro chlorothiazide (ZIAC) 10-6.25 mg per tablet Take 1 tablet by mouth once daily. Active meloxicam (MOBIC) 15 mg tablet Take 15 mg by mouth once daily. Active tiZANidine HCl 4 mg capsule Take 4 mg by mouth three times daily as needed. Active gabapentin (NEURONTIN) 300 mg capsule Take 300 mg by mouth three times daily. Active OXcarbazepine (TRILEPTAL) 150 mg tablet Take 300 mg by mouth once daily. Active aspirin, enteric coated (ASPIRIN, ENTERIC COATED) 81 mg EC tablet Take 81 mg by mouth once daily. Active CA COMB NO.1/VIT D3/B-6/FA/B12 (VITAMIN D3, CALCIUM CIT-PHOS, ORAL) Take by mouth. Active cyanocobalamin (VITAMIN B-12) 1,000 mcg tab Take 1,000 mcg by mouth once daily. Active HYDROcodone-acet aminophen (NORCO) 5-325 mg per tablet Take 1 tablet by mouth every 8 hours as needed. Active brimonidine (ALPHAGAN P) 0.15 % ophthalmic solution 1 Drop twice daily. Active latanoprost (XALATAN) 0.005 % ophthalmic solution 1 Drop daily at bedtime. Active Active Problems Problem Noted Date Diagnosed Date Sacroiliac joint dysfunction of both sides 10/03 Spondylolisthesis at L4-L5 level 10/04/2015 Smoking 10/04/2015 Lumbar facet arthropathy 10/04/2015 Arthritis Back pain High blood pressure Anxiety and depression Trigeminal neuralgia of left side of face Family History Medical History Relation Comments Arthritis Mother Cancer Mother Heart Failure Mother Hypertension Mother Relation Status Comments Mother Social History Tobacco Use Types Packs/Day Years Used Date Smoking Tobacco: Some Days Cigarettes 06 05 Comments:CURRENTLY SMOKES 2 A DAY Alcohol Use Standard Drinks/Week Comments Yes 0 (1 standard drink = 0.6 oz pur e alcohol) SOCIAL Comments No Sex and Gender Information Value Date Recorded Sex Assigned at Not on file Legal Sex Female 1:06 PM EDT Gender Identity Not on file Sexual Orientation Not on file 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 Not on file Not on file Last Filed Vital Signs Vital Sign Reading Time Taken Comments Blood Pressure 177/83 10/04/2015 2:40 PM EDT Pulse 60 10/04/2015 2:40 PM EDT Temperature - - Respiratory Rate 20 10/04/2015 2:40 PM EDT Oxygen Saturation - - Inhaled Oxygen Concentration - - Weight 89.8 kg (198 lb) 10/04/2015 2:40 PM EDT Height 162.6 cm (5' 4 ) 10/04/2015 2:40 PM EDT Body Mass Index 33.99 10/04/2015 2:40 PM EDT Plan of Treatment Health Maintenance Due Date Last Done Comments Anxiety Screening 01/31/1968 Depression Screening 01/31/1968 Hepatitis C Screening 01/31/1968 DTaP,Tdap,Td Vaccine (1 - Tdap) [address] Colonography 1995 Cologuard (FIT-DNA) 1995 Colonoscopy 1995 Colorectal Cancer Screening 1995 Diabetes Screening 1995 Fecal Occult Blood 1995 Lipid Screening 1995 Sigmoidoscopy 1995 Pneumococcal Vaccine: 50+ (1 of 1 - PCV) 01/31/2000 Shingrix Vaccine (1 of 2) 01/31/2000 Bone Density Screening 2015 Advance Directive Discussion 05/11/2024 Influenza Vaccine (#1) 2025 RSV Vaccine (1 - 1-dose 75+ series) 2025 Insurance MEDICARE RAILROAD Care Teams Associate Professor Of Literacy Relationship Specialty Start Date End Date Florecita Lake MD [address] [place] [address] PCP - General Family Medicine 09/19/15 Sean Reed [address] [place] [address] Referring Neurology 09/19/15
--- OUTSIDE RECORDS SUMMARY | 2024-12-14 12:49 | XMS_ITS | Clinical Summary ---
Author Organization [facility] Address [address] [place] [address] Care Team Providers Care Environmental Health Physician Name Role Phone Amilcar Cordova MD Primary Care Provider [phone] Nico Deluna OD Unavailable Deb Bray TRAVELIFT OPERATOR Unavailable [phone] Veronica Amos DO Unavailable [phone] Allergies Active Allergy Reactions Criticality Noted Date Comments Amoxicillin Hives,Unknown 01/02/2020 Other Reaction(s): Other Medications Omeprazole 20 MG Tablet Delayed Release Dispersible Take 1 capsule by mouth in the morning. Active aspirin (ASPIR) 81 MG EC tablet Take 81 mg by mouth in the morning. Active alendronate (Fosamax) 35 MG tablet Take 35 mg by mouth every 7 (seven) days 09/27/19 23 Active atorvastatin (Lipitor) 40 MG tablet Take 40 mg by mouth in the morning. 03/30/20 23 Active biotin 41366 MCG tablet Take 1 tablet by mouth in the morning. Active bisoprolol (Zebeta) 10 MG tablet Take 10 mg by mouth in the morning. 03/30/20 23 Active brimonidine (AlphaGAN P) 0.15 % ophthalmic solution Administer 1 drop into both eyes in the morning and 1 drop in the evening. Active Calcium Carb-Cholecalcifer ol 600-20 MG-MCG tablet Take by mouth Active furosemide (Lasix) 20 MG tablet Take 20 mg by mouth every other day 04/15/20 23 Active furosemide (Lasix) 40 MG tablet Take 40 mg by mouth every other day Active gabapentin (Neurontin) 300 MG capsule Take 300 mg by mouth in the morning. Take before meals. 600 mg HS. 05/21/19 24 Active HYDROcodone-acetam inophen (Cushing) 5-325 MG tablet Take 1 tablet by mouth 2 (two) times a day as needed 05/21/19 24 Active isosorbide mononitrate ER (Imdur) 120 MG 24 hr tablet Take 120 mg by mouth in the morning. 05/06/20 23 Active Lactobacillus-Inul in ([facility]) capsule Take 1 capsule by mouth in the morning. Active latanoprost (Xalatan) 0.005 % ophthalmic solution Administer 1 drop into both eyes at bedtime Active KLOR-CON 10 MEQ ER tablet Take 10 mEq by mouth in the morning and 10 mEq before bedtime. 03/03/20 23 Active ranolazine (Ranexa) 1000 MG 12 hr tablet Take 1 tablet by mouth in the morning and 1 tablet before bedtime. Active sertraline (Zoloft) 50 MG tablet Take 50 mg by mouth in the morning. 08/12/19 23 Active tiZANidine (Zanaflex) 4 MG tablet Take 4 mg by mouth every 6 (six) hours if needed Active levothyroxine (Synthroid) 125 MCG tabletIndications: Postoperative hypothyroidism Take 1 tablet (125 mcg) by mouth in the morning. Take before meals. 90 tablet 3 07/17/19 24 Active primidone (Mysoline) 50 MG tabletIndications: Essential tremor TAKE 1/2 TO 1 TABLET BY MOUTH AT BEDTIME 90 tablet 1 03/08/20 24 Active clindamycin (Cleocin) 150 MG capsule TAKE 4 CAPSULES BY MOUTH 1 HOUR PRIOR TO DENTAL APPOINTMENT 03/08/20 24 Active Vascepa 1 g capsule TAKE 2 CAPSULES BY MOUTH TWICE DAILY WITH BREAKFAST AND WITH EVENING MEAL 01/26/20 24 Active prednisoLONE acetate (Pred-Forte) 1 % ophthalmic suspension INSTILL 1 DROP IN LEFT EYE 4 TIMES A DAY FOR 4 DAYS 01/13/20 24 Active nitroglycerin (Nitrostat) 0.[address] 0.4 mg under the tongue 07/06/19 25 026 Active doxepin (SINEquan) 10 MG capsuleIndications :PLMD (periodic limb movement disorder) Take 1-2 capsules (10-20 mg) by mouth at bedtime 180 capsule 04/30/20 25 Active Active Problems Problem Noted Date Diagnosed Date Primary open angle glaucoma (POAG) of right eye, mild stage 09/13/2024 Pseudophakia 09/06/2024 Dry eyes 07/20/2024 FUAD (obstructive sleep apnea) 01/18/2024 Hypersomnia 01/18/2024 Brain fog 01/18/2024 Inadequate sleep hygiene 01/18/2024 Snoring 01/18/2024 Obesity due to excess calories 01/18/2024 PLMD (periodic limb movement disorder) Carpal tunnel syndrome, bilateral 01/18/2024 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 01/18/2024 Ulnar neuropathy at elbow of left upper extremit y 01/18/2024 Essential tremor 01/18/2024 Primary open angle glaucoma (POAG) of both eyes, mild stage 11/10/2023 Papillary microcarcinoma of thyroid 06/03/2023 Postoperative hypothyroidism 06/03/2023 Resolved Problems Problem Noted Date Diagnosed Date Resolved Date Age-related nuclear cataract of right eye 09/13/2024 09/20/2024 Age-related nuclear cataract of both eyes 11/10/2023 09/20/2024 Encounters Date Type Department Care Team Description 10/26/2024 2:30 PM EDT Office Visit [facility] [address] [place] [address] Mohit Glaser, DO Pseudophakia (Primary Dx) 10/26/2024 Bamboo flowsheet [facility] [address] [place] [address] Mohit Glaser, DO 10/26/2024 Travel 09/28/2024 2:30 PM EDT Office Visit [facility] [address] [place] [address] Mohit Glaser, DO Pseudophakia (Primary Dx) 09/28/2024 [facility] [address] [place] [address] Lucretia Garcia MD 09/28/2024 Travel 09/20/2024 1:00 PM EDT Office Visit [facility] [address] [place] [address] Mohit Glaser, Pseudophakia (Primary Dx) 09/20/2024 Bamboo flowsheet [facility] [address] [place] [address] Mohit Glaser, 09/20/2024 Travel 09/13/2024 2:00 PM EDT Office Visit [facility] [address] [place] [address] Mohit Glaser, Pseudophakia (Primary Dx); Age-related nuclear cataract of right eye; Primary open angle glaucoma (POAG) of right eye, mild stage 09/13/2024 Bamboo flowsheet [facility] [address] [place] [address] Mohit Glaser, 09/13/2024 Travel from Last 3 Months Family History Medical History Relation Name Comments Thyroid cancer Daughter Heart disease Mother Uterine cancer Mother Relation Name Status Comments Daughter Alive Father Maternal Grandfather Maternal Grandmother Mother Paternal Grandfather Paternal Grandmother Son Alive Social History Tobacco Use Types Packs/Day Years Used Date Smoking Tobacco: Former Cigarettes Q uit: 04/10/2021 Smokeless Tobacco: Never Tobacco Cessation:Counseling Given: Not Answered Alcohol Use Standard Drinks/Week Comments Yes 0 (1 standard drink = 0.6 oz pur e alcohol) Comments Unknown Sex and Gender Information Value Date Recorded Sex Assigned at Not on file Legal Sex Female 6:50 PM EDT Gender Identity Not on file Sexual Orientation Not on file Last Filed Vital Signs Vital Sign Reading Time Taken Comments Blood Pressure 122/78 07/21/2024 1:18 PM EDT Pulse 56 07/21/2024 1:18 PM EDT Temperature - - Respiratory Rate - - Oxygen Saturation 93% 07/21/2024 1:18 PM EDT Inhaled Oxygen Concentration - - Weight 91.6 kg (202 lb) 07/21/2024 1:18 PM EDT Height 157.5 cm (5' 2 ) 07/21/2024 1:18 PM EDT Body Mass Index 36.95 07/21/2024 1:18 PM EDT Plan of Treatment Upcoming Encounters Date Type Department Care Team (Late st Contact Info) Description 01/19/2025 1:00 PM EDT Office Visit [facility] [address] [place] [address] Josselin Mckay PA [address] [place] [address] 01/25/2025 2:00 PM EDT Office Visit [facility] [address] [place] [phone] Mohit Glaser DO [address] [place] [address] Health Maintenance Due Date Last Done Comments CT Colonography 1950 Colonoscopy 1950 Colorectal Cancer Screening 1950 FIT-DNA 1950 FIT 1950 FOBT 1950 Sigmoidoscopy 1950 Mammogram 1990 Influenza Vaccine (#1) 2025 4, 03/03/2023, 02/15/2022, Additional history exists Pneumococcal Vaccine: 65+ Years Completed 02/26/2019, 02/17/2018, 02/09/2018, Additional history exists [place] [address] [employer] Care Teams Environmental Health Physician Relationship Specialty Start Date End Date Amilcar Cordova MD [address] [place] [address] PCP - General Family Medicine 04/24/23 Nico Deluna OD [address] [place] [address] Referring Physician Optometry 11/10/23 Deb Bray NP [address] [place] [address] Nurse Practitioner Neurology 07/21/24 Veronica Amos DO [address] [place], [place] [id number] Referring Physician Neurology 07/21/24
--- OUTSIDE RECORDS SUMMARY | 2024-12-14 12:49 | XMS_ITS | Clinical Summary ---
Author Organization [facility] Address [address] [place] [address] Phone Care Team Providers Care Cytogeneticist Name Role Phone Unavailable Primary Care Provider Unavailabl e Social History Tobacco Use Types Packs/Day Years Used Date Smoking Tobacco: Never Assessed Comments Unknown Sex and Gender Information Value Date Recorded Sex Assigned at Not on file Legal Sex Female 5:25 PM EST Gender Identity Not on file Sexual Orientation Not on file Plan of Treatment Not on file
--- OUTSIDE RECORDS SUMMARY | 2024-12-14 12:49 | XMS_ITS | Encounter Summary ---
Author Organization [facility] Address [address] [place] [address] Care Team Providers Care Bus Operator Name Role Phone Jed Piedra MD Primary Care Provider [phone] RegiNico OD Unavailable Deb Bray PARALEGAL INSTRUCTOR Unavailable [phone] Veronica Amos DO Unavailable [phone] Encounter Details Date Type Department Care Team (Late st Contact Info) Description 05/18/2023 Clinisync Result Encounter [facility] External Department Unsolicited Kimberly Ashley MD [address] [facility] [address] [place] [address] Social History Tobacco Use Types Packs/Day Years [...] Description 01/19/2025 1:00 PM EDT Office Visit [facility] [address] [place] [address] Josselin Mckay PA [address] [place] [address] 01/25/2025 2:00 PM EDT Office Visit [facility] [address] [place] [address] Mohit Glaser D, DO [address] [place] [address] documented as of this encounter Procedures Procedure Name Priority Date/Time Associated Diagnosis Comments US THYROID 05/18/2023 1:11 PM EST [facility] THYROGLOBULIN Routine 05/18/2023 12: 45 PM EST ALL THYROID STIM HORMONE Routine 05/18/2023 12:45 PM EST documented in this encounter Results * US thyroid (05/18/2023 1:11 PM EST) Anatomical Region Laterality Modality Head, Neck Ultrasound 05/18/2023 1:11 PM EST Narrative 05/18/2023 1:14 PM EST [address] [address] Ultrasound Report Signed Patient: DIANN LINDER MR#: [id number] : 1950 Acct:[id number] Age/Sex: 73 / F ADM Date: 05/18/23 Loc: LAB Attending Dr: Kmiberly Ashley M.D. Ordering Physician: Kimberly Ashley M.D. Date of Service: 05/18/23 Procedure(s): US thyroid Accession Number(s): [id number] cc: JED PIEDRA ; Kimberly Ashley M.D. [address] [address] Patient Name: DIANN LINDER MRN: [id number] date: 1950 Sex: F Assigned Patient Location: LAB Current Patient Location: LAB Accession/Order Number: [id number] Exam Date: 05/18/2023 12:52 Report Date: 05/18/2023 13:11 At the request of: KIMBERLY ASHLEY Procedure: US thyroid EXAM: US thyroid HISTORY: Papillary Microcarcinoma Of Thyroid C73 . Follow-up study. COMPARISON: 05/07/2022 TECHNIQUE: Multiple sonographic images of the soft tissues of the neck were obtained, supplemented with Doppler. FINDINGS: The thyroid gland is not visualized. No residual tissue is present after thyroidectomy. There is no evidence of a focal mass or abnormal fluid collection. US/US thyroid IMPRESSION: Prior thyroidectomy. No residual thyroid tissue is identified. Similar findings were noted in the prior study from 04/29/2022. Electronically authenticated by: MAURICE BANEGAS Date: 05/18/2023 13:11 Dictated By: Maurice Banegas M.D. Signed By: 05/18/23 1314 DD/ 1311 TD/TT: Senior Technical Specialist: Procedure Note Radiology, Radiologist, - 05/18/2023 [place] [address] Ultrasound Report Signed Patient: DIANN LINDER DMR#: [id number] : 1950Acct:[id number] Age/Sex: 73 / FADM Date: 05/18/23 Loc: LAB Attending Dr: Kimberly Ashley M.D. Ordering Physician: Kimberly Ashley M.D. Date of Service: 05/18/23 Procedure(s): US thyroid Accession Number(s): [id number] cc: JED PIEDRA ; Kimberly Ashley M.D. [address] [place] [id number] Patient Name: DIANN LINDER MRN: [id number] date: 1950 Sex: F Assigned Patient Location: LAB Current Patient Location: LAB Accession/Order Number: [id number] Exam Date: 05/18/2023 12:52 Report Date: 05/18/2023 13:11 At the request of: KIMBERLY ASHLEY Procedure: US thyroid EXAM: US thyroid HISTORY: Papillary Microcarcinoma Of Thyroid C73 . Follow-up study. COMPARISON: 05/07/2022 TECHNIQUE: Multiple sonographic images of the soft tissues of the neckwere obtained, supplemented with Doppler. FINDINGS: The thyroid gland is not visualized. No residual tissue ispresent after thyroidectomy. There is no evidence of a focal mass or abnormalfluid collection. US/US thyroid IMPRESSION: Prior thyroidectomy. No residual thyroid tissue is identified. Similar findings were noted in the prior study from 04/29/2022. Electronically authenticated by: MAURICE BANEGAS Date: 05/18/2023 13:11 Dictated By: Maurice Banegas M.D. Signed By:05/18/23 131 DD/ 10 TD/TT: Senior Technical Specialist: us Kimberly Ashley MD IMG US PROCEDURES Final Resul t * [facility] THYROGLOBULIN (05/18/2023 12:45 PM EST) THYROGLOBULIN (TG-JI) <2.0 . ng/mL [facility] Comment: This test was developed and its performance characteristics determined by [employer]. It has not been cleared or approved [...] assay quantitation limit is 2.0 ng/mL. Performed at: [facility] [address] [place] [id number] Health Claims Examiner: Zoltan Shabazz MD, Phone: [phone] 05/18/2023 12:4 5 PM EST 05/18/2023 12:45 PM EST Narrative [facility] - 05/25/2023 6:11 AM EST us Kimberly Ashley MD [facility] Final Result [facility] * (ABNORMAL) ALL THYROID STIM HORMONE (05/18/2023 12:45 PM EST) THYROID STIMULATING HORMONE 4.872(H) 0.358 - 3.740 uIU/mL [facility] 05/18/2023 12:4 5 PM EST 05/18/2023 12:45 PM EST Narrative [facility] - 05/18/2023 2:00 PM EST Kimberly Ashley MD [facility] Final Result [facility] documented in this encounter Visit Diagnoses Not on filedocumented in this encounter Care Teams Bus Operator Relationship Specialty Start Date End Date Jed Piedra MD [address] [place] [address] PCP - General Family Medicine 04/24/23 Nico Deluna OD [address] [place] [address] Referring Physician Optometry 11/10/23 Deb Bray NP [address] [id number] Nurse Practitioner Neurology 07/21/24 Veronica Amos DO [address] [address] Referring Physician Neurology 07/21/24 documented as of this encounter
--- OUTSIDE RECORDS SUMMARY | 2024-12-14 12:49 | XMS_ITS | Clinical Summary ---
Author Organization [facility] Address [address] [place] [address] Care Team Providers Care Software Clerk Name Role Phone Amilcar Cordova MD Primary Care Provider [phone] Allergies Active Allergy Reactions Criticality Noted Date Comments Amoxicillin Hives 01/02/2020 Medications albuterol 90 mcg/actuation inhaler Active alendronate (Fosamax) 35 mg tablet Take 1 tablet every week by oral route for 84 days. Active aspirin 81 mg EC tablet Take 1 tablet by mouth in the morning. Active gabapentin (Neurontin) 300 mg capsule Take 1 capsule by mouth in the morning and at bedtime. Active HYDROcodone-acetam inophen (Paia) 5-325 mg tablet Take 1 tablet by mouth if needed in the morning and at bedtime. Active omeprazole (PriLOSEC) [address] capsule Take 1 tablet by mouth in the morning. Active sertraline (Zoloft) 50 mg tablet Take 1 tablet every day by oral route for 90 days. Active tiZANidine (Zanaflex) 4 mg tablet Take 2 tablets every day by oral route for 90 days. Active potassium chloride CR (Klor-Con M10) 10 mEq ER tablet Take 10 mEq by mouth in the morning and at bedtime. Do not crush or chew. Active doxepin (SINEquan) 10 mg capsule TAKE 1 - 2 CAPSULES BY MOUTH EVERYDAY AT BEDTIME 10/28/19 23 Active primidone (Mysoline) 50 mg tablet Take 25 mg by mouth. 09/17/19 23 Active levothyroxine (Synthroid, Levoxyl) 125 mcg tablet Take 125 mcg by mouth before breakfast. Active icosapent ethyL (Vascepa) 1 gram capsuleIndications :Hypertriglyceride sarah Take 2 capsules (2 g) by mouth 2 times daily. 120 capsule 11 07/10/19 24 Active furosemide (Lasix) 40 mg tabletIndications: Leg edema TAKE alternating 40mg and 20mg every other day 90 tablet 3 01/12/20 24 Active atorvastatin (Lipitor) 40 mg tabletIndications: Other hyperlipidemia TAKE 1 TABLET EVERY DAY 90 tablet 3 04/14/20 24 025 Active bisoprolol (Zebeta) 10 mg tabletIndications: Other hyperlipidemia TAKE 1 TABLET EVERY DAY 90 tablet 3 04/14/20 24 025 Active isosorbide mononitrate ER (Imdur) 120 mg 24 hr tabletIndications: Chest pain, unspecified type TAKE 1 TABLET ONE TIME DAILY DIRECTED (DO NOT CRUSH OR CHEW) 90 tablet 3 04/14/20 24 Active furosemide (Lasix) 20 mg tabletIndications: Edema, unspecified type Take 1 tablet (20 mg) by mouth every other day. 45 tablet 3 06/06/19 25 026 Active nitroglycerin (Nitrostat) 0.4 mg SL tabletIndications: Coronary artery disease involving ely shoshone coronary artery of ely shoshone heart with other form of angina pectoris Place 1 tablet (0.4 mg) under the tongue every 5 (five) minutes if needed for chest pain. May repeat dose every 5 minutes for up to 3 doses total. 25 tablet 3 07/06/19 25 026 Active ranolazine (Ranexa) 1,000 mg 12 hr tabletIndications: Chest pain, unspecified type Take 1 tablet (1,000 mg) by mouth two times daily. Do not crush, chew, or split. 180 tablet 3 10/26/19 25 Active Active Problems Problem Noted Date Diagnosed Date Chronic diastolic heart failure 08/31/2024 Overview (08/31/2024): Added per outpatient CDI policy based on Betty report Hypertensive heart disease with heart failure (I11.0) Persistent (Historical Claim) ? Sep 02, 2023 ? [facility], Heart ? Heart Failure, Except End-Stage and Acute and 09/12/2022 [facility]- [id number] chronic diastolic heart failure and 07/06/2024 [place] consult- anxiety and depression, iron deficiency anemia, CKD 3, PFTs 01/25/2021 moderate obstruction on spirometry without a bronchodilator response, elevated RV suggests air trapping, mildly reduced diffusion capacity, overall stufy compatible with moderate emphysema, Chornic diastolic heart failure (page 4), coronary artery disease involving ely shoshone coronary artery of ely shoshone heart with other form of angina pectoris [id number] Chronic obstructive pulmonary disease 08/31/2024 Overview (08/31/2024): Added per outpatient CDI policy based on: Betty Chronic obstructive pulmonary disease, unspecified (J44.9) Persistent (Historical Claim) ? Sep 02, 2023 ? [facility], Lung ? Chronic Obstructive Pulmonary Disease, Interstitial Lung Disorders, and Other Chronic Lung Disorders 07/06/2024 [place] consult- anxiety and depression, iron deficiency anemia, CKD 3, PFTs 01/25/2021 moderate obstruction on spirometry without a bronchodilator response, elevated RV suggests air trapping, mildly reduced diffusion capacity, overall stufy compatible with moderate emphysema, [place] diastolic heart failure (page 4), coronary artery disease involving ely shoshone coronary artery of ely shoshone heart with other form of angina pectoris [id number] 04/30/2022 H&P- CHF, HTN, emphysema or COPD Former smoker 08/31/2024 Hx of basal cell carcinoma 08/31/2024 Hx of thyroid cancer 08/31/2024 Stage 3a chronic kidney disease 08/31/2024 Overview (08/31/2024): Added per Dr. Cordova query response and outpatient CDI policy based on: Betty report- Chronic kidney disease, stage 3b (N18.32) Persistent (Historical Claim) ? Jan 06, 2024 ? [facility] ? Chronic Kidney Disease, Moderate (Stage 3B) Labs- 09/12/2022 eGFR 49, 10/31/2021 eGFR 49, 07/04/2019 eGFR 55, 11/24/2018 eGFR 49 07/06/2024 [place] consult- anxiety and depression, iron deficiency anemia, CKD 3 Dry eyes 07/20/2024 Skin cancer 07/06/2024 Brain fog 01/18/2024 Carpal tunnel syndrome, bilateral 01/18/2024 Hypersomnia 01/18/2024 Inadequate sleep hygiene 01/18/2024 Obesity due to excess calories 01/18/2024 Essential tremor 01/18/2024 Snoring 01/18/2024 Ulnar neuropathy at elbow of left upper extremit y 01/18/2024 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 01/18/2024 PLMD (periodic limb movement disorder) BMI 35.0-35.9,adult 12/29/2023 Cellulitis of leg 12/29/2023 Cervical osteoarthritis 12/29/2023 Easy bruisability 12/29/2023 History of colon polyps 12/29/2023 Iron deficiency anemia 12/29/2023 SK (seborrheic keratosis) 12/29/2023 Age-related nuclear cataract of both eyes 2023 Primary open angle glaucoma (POAG) of both eyes, mild stage 11/10/2023 Papillary microcarcinoma of thyroid 06/03/2023 06/22/2023 Postoperative hypothyroidism 06/03/202304/2024 Abnormal kidney function 03/18/2023 023 Anemia 03/18/2023 03/18/2023 C. difficile diarrhea 03/18/2023 03/18/2023 Glaucoma 03/18/2023 03/18/2023 H/O hematuria 03/18/2023 03/18/2023 Hematuria 03/18/2023 03/18/2023 Hyperlipidemia 03/18/2023 03/18/2023 Hypothyroidism 03/18/2023 03/18/2023 Kidney stones 03/18/2023 03/18/2023 Renal mass 03/18/2023 03/18/2023 Sleep apnea 03/18/2023 03/18/2023 Thyroid cancer 03/18/2023 03/18/2023 Anxiety and depression 02/27/2022 Arthritis 02/27/2022 Back pain 02/27/2022 Trigeminal neuralgia of left side of face 2021 Coronary arteriosclerosis 02/25/2021 Dyspnea on exertion 02/25/2021 High blood pressure 02/25/2021 Sacroiliac joint dysfunction of both sides 10/03 Smoking 10/04/2015 Spondylolisthesis at L4-L5 level 10/04/2015 Encounters Date Type Department Care Team Description 10/25/2024 [facility] [address] [place] [address] Halle Hooper MA Chest pain, unspecified type from Last 3 Months Immunizations Immunization Administration Dates Next Due Influenza, High Dose Seasona l, Preservative Free 02/26/2019,02/09/2018,03/12/2015 Influenza, injectable, quadrivalent 04/27/2021,1 ,03/23/2014 Influenza, seasonal, injectable 02/21/2019 Pneumococcal Conjugate PCV 13 02/09/2018 Pneumococcal Polysaccharide PPV23 02/26/2019,02/2018,03/10/2003 Unspecified Sars-Cov-2 Vaccination 05/15/2021,,07/16/2020 Family History Medical History Relation Name Comments Heart failure Mother Relation Name Status Comments Mother Social History Tobacco Use Types Packs/Day Years Used Date Smoking Tobacco: Every Day Cigarettes Smokeless Tobacco: Never Tobacco Cessation:Ready to Q uit: Not Asked; Counseling Given: Not Answered Alcohol Use Standard Drinks/Week Comments Yes 0 (1 standard drink = 0.6 oz pur e alcohol) occasional [place] Safety & Environment Answer Date Rec orded Fear of Current or Ex-Partner Not on file Emotionally Abused Not on file 07/02/2023 Physically Abused Not on file 07/02/2023 Sexually Abused Not on file 07/02/2023 Physically or Sexually Abused Not on file Comments Unknown Sex and Gender Information Value Date Recorded Sex Assigned at Not on file Legal Sex Female 12:36 AM EDT Gender Identity Not on file Sexual Orientation Not on file Last Filed Vital Signs Vital Sign Reading Time Taken Comments Blood Pressure 116/72 08/31/2024 1:05 PM EDT Pulse 54 08/31/2024 1:05 PM EDT Temperature - - Respiratory Rate - - Oxygen Saturation 95% 08/31/2024 1:05 PM EDT Inhaled Oxygen Concentration - - Weight 93.4 kg (206 lb) 08/31/2024 1:05 PM EDT Height 157.5 cm (5' 2 ) 08/31/2024 1:05 PM EDT Body Mass Index 37.68 08/31/2024 1:05 PM EDT Plan of Treatment Upcoming Encounters Date Type Department Care Team (Late st Contact Info) Description 12/20/2024 3:00 PM EDT Follow-Up [facility] [address] [place] [id number] Stan Portillo MD [facility] [place] [address] Health Maintenance Due Date Last Done Comments CT Colonography 1950 Colonoscopy 1950 Colorectal Cancer Screening 1950 FIT-DNA 1950 FIT 1950 FOBT 1950 Medicare Annual Wellness (AWV) 1950 Sigmoidoscopy 1950 Depression Screening 1962 Adult Tetanus 01/31/1972 Mammogram 1990 Zoster Vaccines (1 of 2) 01/31/2000 Fall Risk Screening 2015 COVID-19 Vaccine ( season) 2024 03/02/2024, 03/03/2023, 04/17/2022, Additional history exists Influenza Vaccine (#1) 2025 , 03/03/2023, 02/15/2022, Additional history exists Pneumococcal Vaccine: 50+ Years Completed 02/26/2019, 02/17/2018, 02/09/2018, Additional history exists HIB Vaccines Aged Out No longer eligi ble based on patient's age to complete this topic HPV Vaccines Aged Out No longer eligi ble based on patient's age to complete this topic IPV Vaccines Aged Out No longer eligi ble based on patient's age to complete this topic Meningococcal B Vaccine Aged Out No l onger eligible based on patient's age to complete this topic Meningococcal Vaccine Aged Out No deidre ynes eligible based on patient's age to complete this topic Rotavirus Vaccines Aged Out No longer eligible based on patient's age to complete this topic Insurance MEDICARE [id number] [place] [address] [place] [address] Care Teams Software Clerk Relationship Specialty Start Date End Date Amilcar Cordova MD [address] [place] [id number] PCP - General Family Medicine 03/18/23
--- OUTSIDE RECORDS SUMMARY | 2024-12-14 12:49 | XMS_ITS | Clinical Summary ---
Author Organization [facility] [facility] Address [id number] [address] [place] [address] Care Team Providers Care General Purchasing Agent Name Role Phone Florecita Lake MD Primary Care Provider [phone] Allergies Active Allergy Reactions Criticality Noted Date Comments Amoxicillin Hives 01/02/2020 Medications calcium carbonate-vitam in D3 600 mg(1,500mg) -200 units per tablet Take 600 mg by mouth daily. Active DRYSOL DAB-O-MATIC 20 % external solution 20 SOLN as needed. 0 Active bisoprolol-hydr oCHLOROthiazide (ZIAC) 10-6.25 mg per tablet Take 1 tablet by mouth daily. Active brimonidine (ALPHAGAN) 0.15 % ophthalmic solution 1 drop 2 (two) times a day. Active cyanocobalamin 1000 MCG tablet Take 1,000 mcg by mouth daily. Active gabapentin (NEURONTIN) 300 mg capsule Take 300 mg by mouth 2 (two) times a day. 0 Active HYDROcodone-omar taminophen (NORCO) 5-325 mg per tablet 0 Active levothyroxine (SYNTHROID, LEVOTHROID) 125 MCG tablet 0 Active lisinopriL (PRINIVIL,ZESTR IL) 5 mg tablet 0 Active omeprazole (PriLOSEC) 20 mg capsule 0 Active sulindac (CLINORIL) 200 mg tablet 0 Active tiZANidine (ZANAFLEX) 4 mg tablet 0 Active ceFUROxime (CEFTIN) 500 mg tablet Take 500 mg by mouth 2 (two) times a day. Active azithromycin (ZITHROMAX) 250 mg tablet Take 2 tablets the first day, then 1 tablet daily for 4 days. 6 tablet 0 Active Additional Information Patient not taking.Reported on 02/13/2020 Active Problems No known active problems Family History Medical History Relation Name Comments Heart disease Mother Relation Name Status Comments Father Other Mother Social History Tobacco Use Types Packs/Day Years Used Date Smoking Tobacco: Every Day Cigarettes 0.3 55.6 Started: [birth year]/11/1969 Smokeless Tobacco: Never Tobacco Cessation:Ready to Q uit: Yes; Counseling Given: Yes Alcohol Use Standard Drinks/Week Comments Yes 1 (1 standard drink = 0.6 oz pur e alcohol) social Childcare Answer Date Recorded Childcare Unknown 10/18/2018 Employment Answer Date Recorded Employment Unknown 10/18/2018 Purpose - Life Answer Date Recorded Purpose and direction in life Unknown Comments Unknown Sex and Gender Information Value Date Recorded Sex Assigned at Not on file Legal Sex Female 1:17 PM EDT Gender Identity Not on file Sexual Orientation Not on file Last Filed Vital Signs Vital Sign Reading Time Taken Comments Blood Pressure 130/80 02/13/2020 1:16 PM EDT Pulse - - Temperature 36.2 C (97.1 F) 02/13/2020 1:16 PM EDT Respiratory Rate - - Oxygen Saturation - - Inhaled Oxygen Concentration - - Weight 89.8 kg (198 lb) 02/13/2020 1:16 PM EDT Height 160 cm (5' 3 ) 02/13/2020 1:16 PM EDT Body Mass Index 35.07 02/13/2020 1:16 PM EDT Plan of Treatment Health Maintenance Due Date Last Done Comments Depression Screening 1962 Tobacco Screening 1962 Adult BMI Screening 01/31/1968 DTaP,Tdap and Td Vaccines (1 - Tdap) 1969 Zoster (Shingles) Vaccine (1 of 2) 01/31/2000 Fall Risk Screening 2015 Influenza Vaccine 01/09/2025 Medical Devices Not on file Insurance MEDICARE [facility] [place] [id number] Care Teams General Purchasing Agent Relationship Specialty Start Date End Date Florecita Lake MD PCP - General Family Medicine 12/20/19
--- OUTSIDE RECORDS SUMMARY | 2024-12-14 12:49 | XMS_ITS | Encounter Summary ---
Author Organization [facility] Address [address] [place] [place] [address] Care Team Providers Care Wet Machine Operator Name Role Phone Amilcar Cordova MD Primary Care Provider [phone] Reason for Visit * Reason Comments Med Refill Encounter Details Date Type Department Care Team (Late st Contact Info) Description 03/30/[address] [facility] [address] [place] [phone] Jalen Tobias MD [address] [facility] [address] [facility] [place] [address] Other hyperlipidemia Social History Tobacco Use Types Packs/Day Years Used Date Smoking Tobacco: Every Day Cigarettes Smokeless Tobacco: Never Alcohol Use Standard Drinks/Week Comments Yes 0 (1 standard drink = 0.6 oz pur e alcohol) occasional Comments Unknown Sex and Gender Information Value Date Recorded Sex Assigned at Not on file Legal Sex Female 12:36 AM EDT Gender Identity Not on file Sexual Orientation Not on file documented as of this encounter Plan of Treatment Upcoming Encounters Date Type Department Care Team (Late st Contact Info) Description 12/20/2024 3:00 PM EDT Follow-Up [facility] [address] [place] [address] Stan Portillo MD [address] [place] [address] [address] [place] [address] documented as of this encounter Visit Diagnoses Diagnosis Other hyperlipidemia documented in this encounter Care Teams Wet Machine Operator Relationship Specialty Start Date End Date Amilcar Cordova MD [address] [place] [address] PCP - General Family Medicine 03/18/23 documented as of this encounter
[2024-12-14 13:32] LABS: Hematocrit 39.0 % (36.0-48.0); Hemoglobin 12.6 g/dL (12.0-16.0); Immature Granulocytes Abs Auto 0.01 10^3/uL (0.00-0.03); Immature Granulocytes Pct Auto 0.2 % (0.0-0.5); Lymphocytes Absolute Auto 1.3 10^3/uL (1.2-3.8); Mean Corpuscular HGB Conc 32.3 g/dL (29.9-35.2); Mean Corpuscular Hemoglobin 30.8 pg (26.7-34.0); Mean Corpuscular Volume 95.4 fL (81.0-99.0); Platelet Count 188 10^3/uL (150-450); Red Blood Count 4.09 10^6/uL (4.20-5.40); White Blood Count 6.4 10^3/uL (4.0-11.0)
[2024-12-14 14:13] LABS: Alanine Aminotransferase 18 U/L (14-59); Albumin Globulin Ratio 1.0; Albumin Level 3.7 g/dL (3.4-5.0); Alkaline Phosphatase 96 U/L (46-116); Anion Gap 12.5; Aspartate Amino Transferase 13 U/L (15-37); Blood Urea Nitrogen 25.0 mg/dL (7.0-18.0); Calcium 9.4 mg/dL (8.5-10.1); Carbon Dioxide 28.1 mmol/L (21.0-32.0); Chloride 109 mmol/L (98-107); Estimated GFR (African America 50 (>=60 mL/min/1.73m^2); Estimated GFR (Non-African Ame 42 (>=60 mL/min/1.73m^2); Globulin 3.6 g/dL; Glucose 112 mg/dL (74-106); Magnesium 1.8 mg/dL (1.8-2.4); Potassium 3.6 mmol/L (3.5-5.1); Sodium 146 mmol/L (136-145); Total Protein 7.3 g/dL (6.4-8.2)
== END 2024-12-14 12:48 | disposition home or self-care (01) ==
PROVIDERS: PCP Nurse Practitioner Family; Visit Provider Internal Medicine Rheumatology
DX: M81.0 Age-related osteoporosis without current pathological fracture (principal); Z51.81 Encounter for therapeutic drug level monitoring; M15.0 Primary generalized (osteo)arthritis; Z79.899 Other long term (current) drug therapy; M85.88 Other specified disorders of bone density and structure, other site
CPT/HCPCS: 36415; 77080; 80053; 83735; 84100; 85025

== ENCOUNTER 2025-02-06 12:46 | Outpatient (OUT) | payer MEDICARE, OTHER, SELFPAY ==
--- OUTSIDE RECORDS SUMMARY | 2025-02-02 08:50 | XMS_ITS ---
Author Name Auto Generated Organization OHIP Support Name Relationship Address Phone FREDO, AMADO Next of Kin Unknown [phone] NIYAH, KAREN Next of Kin Unknown [phone] YOO, AMADO Next of Kin Unknown [phone] NIYAH, KAREN Next of Kin Unknown [phone] NIYAH, KAREN Next of Kin Unknown [phone] YOO, AMADO Next of Kin Unknown [phone] NIYAH, LEATHA Next of Kin Unknown + NIYAH, KAREN Next of Kin Unknown [phone] NIYAH, KAREN Next of Kin Unknown [phone] YOO, AMADO Next of Kin Unknown [phone] NIYAH, LEATHA Next of Kin Unknown + NIYAH, KAREN Next of Kin Unknown [phone] NIYAH, KAREN Next of Kin Unknown [phone] Niyah, Karen Next of [address] [place] [address] + YOO, AMADO Next of Kin Unknown [phone] NIYAH, LEATHA Next of Kin Unknown + YOO, AMADO Next of Kin Unknown [phone] NIYAH, LEATHA Next of Kin Unknown + YOO, AMADO Next of Kin Unknown [phone] NIYAH, LEATHA Next of Kin Unknown + YOO, AMADO Next of Kin Unknown [phone] NIYAH, LEATHA Next of Kin Unknown + FREDO, AMADO Next of Kin Unknown [phone] NIYAH, LEATHA Next of Kin Unknown + KAREN LINDER Next of Kin Unknown [phone] FREDO, AMADO Next of Kin Unknown [phone] NIYAH, LEATHA Next of Kin Unknown + FREDO, AMADO Next of Kin Unknown [phone] NIYAH, LEATHA Next of Kin Unknown + FREDO, AMADO Next of Kin Unknown [phone] NIYAH, LEATHA Next of Kin Unknown + KAREN LINDER Next of Kin Unknown [phone] FREDO, AMADO Next of Kin Unknown [phone] NIYAH, LEATHA Next of Kin Unknown + Care Team Providers Care Shield Installer Name Role Phone VENKAT TOBIAS Attending Unavailable VENKAT TOBIAS Attending Unavailable EL-ZAWAHRY, AHMED Referring Unavailable EL-ZAWAHRY, AHMED Referring Unavailable EL-ZAWAHRY, AHMED Referring Unavailable SAVGAIL MONTALVO Attending Unavailable EL-ZAWAHRY, AHMED Admitting Unavailable EL-ZAWAHRY, AHMED Attending Unavailable EL-ZAWAHRY, AHMED Attending Unavailable NONE, XXXX Referring Unavailable SHIRLEY Walsh Attending Unavailabl e SHIRLEY Walsh Admitting Unavailabl e Amilcar Cordova E. Referring Unavailable SHIRLEY Walsh Attending Unavailabl e SHIRLEY Walsh Admitting Unavailabl e Art Amilcar E. Referring Unavailable SHIRLEY Walsh Attending Unavailabl e SHIRLEY Walsh Admitting Unavailabl e JORDEN BERRIOS Attending Unavailable Amilcar Cordova Attending Unavailable Amilcar Cordova Attending Unavailable Amilcar Cordova Attending Unavailable JORDEN BERRIOS Attending Unavailable JORDEN BERRIOS Attending Unavailable Amilcar Cordova E. Referring Unavailable SHIRLEY Walsh Attending Unavailabl e SHIRLEY Walsh Admitting Unavailabl e Art Amilcar E. Referring Unavailable SHIRLEY Walsh Attending Unavailabl e SHIRLEY Walsh Admitting Unavailabl e Blake Toledo Referring Unavailable Blake [place] Attending Unavailable Blake [place] Admitting Unavailable Prudencio Payan Referring Unavailable Prudencio Payan Attending Unavailable Amilcar Cordova Attending Unavailable Amilcar Cordova Admitting Unavailable Amilcar Cordova Referring Unavailable SHIRLEY Walsh Attending Unavailabl e SHIRLEY Walsh Admitting Unavailabl e SHIRLEY Walsh Attending Unavailabl e SHIRLEY Walsh Admitting Unavailabl e Amilcar Cordova Referring Unavailable SHIRLEY Walsh Attending Unavailabl e SHIRLEY Walsh Admitting Unavailabl e Amilcar Cordova Attending Unavailable Amilcar Cordova Admitting Unavailable JORDEN BERRIOS Attending Unavailable JORDEN BERRIOS Admitting Unavailable Blake [place] Attending Unavailable Amilcar Cordova Attending Unavailable Alannah Rosario Attending Unavailable Alannah Rosario Admitting Unavailable KAUSHAL VILLASENOR Attending Unavailable ELSIE MALDONADO Attending Unavailable KAUSHAL VILLASENOR Attending Unavailable GEOVANI MARTIN Attending Unavailable KAUSHAL VILLASENOR Attending Unavailable KAUSHAL VILLASENOR Attending Unavailable KAUSHAL VILLASENOR Attending Unavailable KAUSHAL VILLASENOR Attending Unavailable KAUSHAL VILLASENOR Attending Unavailable ELSIE MALDONADO Attending Unavailable KAUSHAL VILLASENOR Attending Unavailable PROBLEMS DATE TYPE CONDITION / CODE ATTENDING STATUS [facility] 02/02/2025 Admitting Diagnosis Pain, unspecified / R52(ICD-10) NA Active [facility] 08/31/2024 Admitting Diagnosis Chronic kidney disease, stage 3a / N18.31(ICD-10) STAN PORTILLO Active [facility] 08/31/2024 Admitting Diagnosis Personal history of malignant neoplasm of thyroid / Z85.850(ICD-10) STAN PORTILLO Active [facility] 08/31/2024 Admitting Diagnosis Personal history of other malignant neoplasm of skin / Z85.828(ICD-10) EL-ZAWAHRY, [facility] 08/31/2024 Admitting Diagnosis Personal history of nicotine dependence / Z87.891(ICD-10) DENISE [facility] 08/31/2024 Admitting Diagnosis Chronic diastolic (congestive) heart failure / I50.32(ICD-10) DENISE [facility] 08/30/2024 Admitting Diagnosis Periodic limb movement disorder / G47.61(ICD-10) DENISE [facility] 08/30/2024 Admitting Diagnosis Dry eye syndrome of bilateral lacrimal glands / H04.123(ICD-10) DENISE [facility] 07/06/2024 Admitting Diagnosis Lesion of ulnar nerve, right upper limb / G56.21(ICD-10) DENISE [facility] 07/06/2024 Admitting Diagnosis Lesion of ulnar nerve, left upper limb / G56.22(ICD-10) DENISE [facility] 07/06/2024 Admitting Diagnosis Snoring / R06.83(ICD-10) DENISE [facility] 07/06/2024 Admitting Diagnosis Unspecified malignant neoplasm of skin, unspecified / C44.90(ICD-10) DENISE [facility] 07/06/2024 Admitting Diagnosis Essential tremor / G25.0(ICD-10) DENISE [facility] 07/06/2024 Admitting Diagnosis Inadequate sleep hygiene / Z72.821(ICD-10) DENISE [facility] 07/06/2024 Admitting Diagnosis Hypersomnia, unspecified / [facility]47.10(ICD-10) [facility] Diagnosis Carpal tunnel syndrome, bilateral upper limbs / G56.03(ICD-10) DEN[facility] 07/06/2024 Admitting Diagnosis Other symptoms and signs involving cognitive functions and awareness / R41.89(ICD-10) [facility] Admitting Diagnosis Other seborrheic keratosis / L82.1(ICD-10) [facility] Admitting Diagnosis Primary open-angle glaucoma, bilateral, mild stage / H40.1131(ICD-10) [facility] Admitting Diagnosis Personal history of colon polyps, unspecified / Z86.0100(ICD-10) [facility] Admitting Diagnosis Spontaneous ecchymoses / R23.3(ICD-10) [facility]23 Admitting Diagnosis Body mass index (BMI) 35.0-35.9, adult / Z68.35(ICD-10) [facility] Admitting Diagnosis Age-related nuclear cataract, bilateral / H25.13(ICD-10) [facility] Admitting Diagnosis Postprocedural hypothyroidism / E89.0(ICD-10) [facility] Admitting Diagnosis Malignant neoplasm of thyroid gland / C73(ICD-10) [facility] Admitting Diagnosis Other specified disorders of kidney and ureter / N28.89(ICD-10) [facility] Admitting Diagnosis Personal history of other diseases of urinary system / Z87.448(ICD-10) [facility] Admitting Diagnosis Enterocolitis due to Clostridium difficile, not specified as recurrent / A04.72(ICD-10) DENISE [facility] 03/18/2023 Admitting Diagnosis Disorder of kidney and ureter, unspecified / N28.9(ICD-10) [facility] Admitting Diagnosis Trigeminal neuralgia / G50.0(ICD-10) [facility] Admitting Diagnosis Spondylolisthesis, lumbar region / M43.16(ICD-10) [facility] Admitting Diagnosis Sacrococcygeal disorders, not elsewhere classified / M53.3(ICD-10) [facility] Admitting Diagnosis Unspecified osteoarthritis, unspecified site / M19.90(ICD-10) DENISE [facility] 02/27/2022 Admitting Diagnosis Anxiety disorder, unspecified / F41.9(ICD-10) [facility] Admitting Diagnosis Depression, unspecified / F32.A(ICD-10) DENISE [facility] 01/18/2022 Admitting Diagnosis Other forms of dyspnea / R06.09(ICD-10) [facility] Admitting Diagnosis Atherosclerotic heart disease of [place] coronary artery without angina pectoris / I25.10(ICD-10) [facility] Admitting Diagnosis Other hyperlipidemia / E78.49(ICD-10) GAIL PEREZ [facility] 12/30/2024 Admitting Diagnosis Calculus of kidney / N20.0(ICD-10) DEANDRA [facility] 03/18/2023 Admitting Diagnosis Mixed hyperlipidemia / E78.2(ICD-10) [facility] 02/27/2022 Admitting Diagnosis Essential (primary) hypertension / I10(ICD-10) [facility] 07/06/2024 Admitting Diagnosis Atherosclerotic heart disease of [place] coronary artery with other forms of angina pectoris / I25.118(ICD-10) [facility] 07/06/2024 Admitting Diagnosis Abnormal result of other cardiovascular function study / R94.39(ICD-10) [facility] 07/06/2024 Admitting Diagnosis Shortness of breath / R06.02(ICD-10) [facility] PROCEDURES No Procedure Records Found RESULTS ANES Observed: 02/02/2025 4:51 PM Status: COMPLETED Source: [facility] Patient: Diann Linder Procedure Summary Date: 02/02/25 Room / Location: [facility] OPERATING ROOM 07 / [facility] Operating Room Anesthesia Start: 1037 Anesthesia Stop: 1216 Procedure: CYSTOSCOPY, RETROGRADE PYELOGRAM, URETEROSCOPY, HOLMIUM LASER LITHOTRIPSY, URETERAL STENT INSERTION (Left) Diagnosis: Kidney stones (Kidney stones [N20.0]) Surgeons: Stan Portillo MD Responsible Provider: Halle Zapata MD Anesthesia Type: general ASA Status: 3 Anesthesia Type: general Vitals Value Taken Time BP 163/95 02/02/25 12:50 Temp 36.4 ???C (97.5 ???F) 02/02/25 12:14 Pulse 55 02/02/25 12:57 Resp 14 02/02/25 12:57 SpO2 100 % 02/02/25 12:57 Vitals shown include unfiled device data. Anesthesia Post Evaluation Patient location during evaluation: PACU Patient participation: complete - patient participated Level of consciousness: awake Pain score: 0 Pain management: adequate Airway patency: patent Cardiovascular status: acceptable Respiratory status: acceptable Patient is hemodynamically stable and is able to be discharged from PACU per anesthesia protocol. No notable events documented. PROCEDURE Observed: 02/02/2025 10:56 AM Status: COMPLETED Source: [facility] Airway Date/Time: 02/02/2025 10:45 AM Reason: elective General Information and Staff Patient location during procedure: OR Anesthesiologist: Halle Zapata MD Resident/TRADE SALES ASSISTANT/CAA: GLORY Carmona Performed: anesthesiologist Patient Condition Indications for airway management: anesthesia Sedation level: deep Final Airway Details Preoxygenated: yes Final airway type: endotracheal airway Successful airway: ETT Cuffed: yes Successful intubation technique: video laryngoscopy Adjuncts used in placement: intubating stylet Endotracheal tube insertion site: oral Blade: Taylor Blade size: #3 ETT size (mm): 7.0 Cormack-Lehane Classification: grade I - full view of glottis Placement verified by: chest auscultation and capnometry Cuff volume (mL): 6 Measured from: lips ETT to lips (cm): 19 Number of attempts at approach: 1 Number of other approaches attempted: 0 OPNOTE Observed: 02/02/2025 10:37 AM Status: COMPLETED Source: [facility] CYSTOSCOPY, RETROGRADE PYELO GRAM, URETEROSCOPY, HOLMIUM LASER LITHOTRIPSY, URETERAL STENT INSERTION (L) Operative Note Date: 02/02/2025 Location: [facility] OR Name: Diann Linder, : 1950, Diagnosis Pre-op Diagnosis * Kidney stones [N20.0] Post-op Diagnosis * Kidney stones [N20.0] Procedures CYSTOSCOPY, RETROGRADE PYELOGRAM, URETEROSCOPY, HOLMIUM LASER LITHOTRIPSY, URETERAL STENT INSERTION 10136 - [place] CYSTO/URETERO W/LITHOTRIPSY &INDWELL STENT INSRT Surgeons Primary: Stan Portillo MD Resident - Assisting: Ronal Lake MD Procedure Summary Anesthesia: General ASA: III Estimated Blood Loss: 50 Total IV Fluids: 500 mL Drains: * None in log * Implants Type Name Action Serial No. Stent STENT,URETERAL,SOFT,TRIA,6X24 - [id number] Implanted Staff: Sh[employer] Doors [employer] Panels Fabricator: Toshia Buchanan RN Tumbler Tender: Rudy Hall Relief Shower Doors And Panels Fabricator: Indiana Ortiz RN Relief Scrub: Joan Sandoval, LORENA Scrub Person: Susan Guzmán RN [employer] Doors And Panels Fabricator: Brigida Manzo RN Indications: Diann Linder is an 75 y.o. female who is having surgery for Kidney stones [N20.0]. She was found to have bilateral large nephrolithiasis. She has intermittent left flank pain which prompted the intervention on the left side. We discussed that every side may require more than 1 intervention because of the size of the stones. We discussed about PCNL however they prefer to proceed with ureteroscopy since this much less invasive than PCNL. Risks and benefits were discussed with the patient who agreed to proceed. Procedure Details: The patient was seen in the preoperative area. The risks, benefits, complications, treatment options, non-operative alternatives, expected recovery and outcomes were discussed with the patient. The possibilities of reaction to medication, pulmonary aspiration, injury to surrounding structures, bleeding, recurrent infection, the need for additional procedures, failure to diagnose a condition, and creating a complication requiring transfusion or operation were discussed with the patient. The patient concurred with the proposed plan, giving informed consent. The site of surgery was properly noted/marked if necessary per policy. The patient has been actively warmed in preoperative area. Preoperative antibiotics have been ordered and given within 1 hours of incision. Venous thrombosis prophylaxis have been ordered including bilateral sequential compression devices Findings: Large renal stone present in the renal pelvis about 3 cm x 1.7 cm, with the presence of another stone about 0.7 x 0.5 cm. The stones were hard in consistency The patient admitted to the OR after Consenting. The patient was positioned in supine position until general anesthesia is induced and then, the patient was positioned in low dorsolithotomy position. The patient is prepped and draped in regular fashion for the procedure. Timeouts performed and afterwards agreeable and preoperative antibiotics were confirmed in. Started by introducing a cystoscope with 30 degree lens with 22 F sheath. We identified the left ureter. We then cannulated zipwire 0.035 with the assistance of dual lumen catheter. Once the guidewire is in the proper position, we removed the stent leaving the guidewire in place. We then introduced a dual-lumen catheter to the level of the proximal ureter.then a second wire is introduced under fluoroscopic guidance. We then introduced a second wire as a safety wire through the other channel of the dual-lumen. Once wire is in position we remove the dual-lumen and used a ureteral access sheath which is introduced over the wire to the proximal ureter. This is confirmed in place under fluoroscopic guidance. We then proceeded with the flexible uteroscope lithoview from [employer] into the kidney where we identified the stone in left renal pelvis and there is another small stone behind about 5 mm x 7 mm which the main stone is about 3 cm x1.6 cm. Inspection of the kidney: mild hydronephrosis Retrograde pyelogram is performed using the side channel of the dual-lumen. We used 10 cc of contrast material dilated with saline. We injected under low pressure until the pelvicalyceal system is opacified. Findings on retrograde pyelogram Stone is visualized on KUB - Pelvicalyceal system mild dilatation - ureter normal caliber We start using 200 ???m laser to fragment the stone into smaller pieces. We started with 0.5 x 50 and this started to fragment the stone smaller pieces, then 6 x 50 and used the fragmentation settings as well on 1 x 35. We continue with the fragmentation of the stone until we were able to fragment tonsils well to 2 to 3 mm in size. And during the process we encountered some bleeding for which we stopped the procedure for about 2 minutes until bleeding ceased. We then went back again and we inspected most of the calyces of the kidney. We were able to identify some of the stones that were slightly larger than the 3 mm for which we did another round of lithotripsy. We then inspected the kidney to confirm that there are no other large stones and only smaller stones and this was confirmed. We attempted to flush some of the stones We then proceeded with ureteroscopy to inspect the rest of the ureter as we are putting the ureteral access sheath out which appeared that the ureter is normal with no evidence of any injuries or mucosal problems. Then we proceeded with placement of a stent We then placed a stent 6x24 with no strings with plans to remove it with the next procedure. The patient will follow up in 3-4 week obtain KUB and plan accordingly, we discussed with the alextent and her family that we shall need to have a second look in the future. She will strain urine for stone fragments and collect them for chemical analysis in the future Complications: None; patient tolerated the procedure well. Disposition: PACU - hemodynamically stable. Condition: stable Stan Portillo Observed: 02/02/2025 10:29 AM Status: COMPLETED Source: [facility] H&P reviewed. The patient wa s examined and there are no changes to the H&P. ANES Observed: 02/02/2025 9:46 AM Status: COMPLETED Source: [facility] Patient: Diann Linder Procedure Information Date/Time: 02/02/25 1030 Procedure: CYSTOSCOPY, WITH STENT INSERT IF INDICATED, W 1 OR MORE OF RETRGRD PYELO, URETEROSCPY, HOLMIUM LASER LITHOTRIPSY, AND CALC BASKET EXTRACTION (Left) - C-arm, Holmium Location: [facility] OPERATING ROOM 07 / [facility] Operating Room Surgeons: Stan Portillo MD Medical History[1] Relevant Problems Cardio (+) Coronary arteriosclerosis (+) High blood pressure Endo (+) Hypothyroidism (+) Postoperative hypothyroidism /Renal (+) Kidney stones (+) Stage 3a chronic kidney disease (CMS/HCC) Pulmonary (+) Chronic obstructive pulmonary disease (CMS/HCC) (+) Dyspnea on exertion Other (+) Arthritis (+) Cervical osteoarthritis Known hx of CAD with significant narrowing of LAD being medically managed. EF 65%, no valvular abnormalities. Patient not a candidate for surgical or stenting interventions. states patient is appropriate for OR at moderate risk Clinical information reviewed: Tobacco Allergies Meds Med Hx Surg Hx Fam Hx Soc Hx Physical Exam Airway Mallampati: II TM distance: >3 FB Neck ROM: full Cardiovascular - normal exam Dental Pulmonary - normal exam Neurological Abdominal (+) obese Anesthesia Plan ASA 3 general The patient is not a current smoker. Patient was not previously instructed to abstain from smoking on day of procedure. Patient did not smoke on day of procedure. Education provided regarding risk of obstructive sleep apnea. intravenous induction Anesthetic plan and risks discussed with patient. Plan discussed with CAA. Additional Equipment Requests [1] Past Medical History: Diagnosis Date ??? Anemia ??? Arthritis ??? Basal cell carcinoma (BCC) ??? C. difficile diarrhea ??? Cancer (CMS/HCC) ??? Cataract ??? CHF (congestive heart failure) (CMS/HCC) ??? CKD (chronic kidney disease) ??? Colon polyp ??? COPD (chronic obstructive pulmonary disease) (CMS/HCC) ??? Coronary artery disease ??? CTS (carpal tunnel syndrome) ??? Essential tremor ??? Glaucoma ??? Hematuria ??? Hyperlipidemia ??? Hypertension ??? Hypothyroidism ??? Kidney stone ??? Osteoarthritis ??? Sleep apnea ??? Thyroid cancer (CMS/HCC) POCT GLUCOSE METER UNSOLICIT ED RESULTS Collected: 02/02/2025 9:22 AM Status: UNK Source: [facility] Order Comment: Waived Testin g in the ED is performed under the ED CLIA certificate #[id number]. TYPE CODE TESTS RESULT OUT OF RANGE REFERENCE UNITS LAB 885 POCT GLUCOSE 112 High 70-105 mg/dL Result Comment: ltolles Performed By: #### [id number] #### [facility] ([facility]) [address] [place] [address] FOLLOW-UP Observed: 2025 3:00 PM Status: COMPLETED Source: [facility] [id number] Diann Linder [birth year] F Date Provider Department Center 2025 [id number] SANDHU [facility] Family History Problem Relation Age of Onset Heart failure Mother Family Status - Relation Status Age at Mother Level of Service:16982 [place] OFFICE/OUTPATIENT ESTABLISHED MOD MDM 30 MIN Reason for Visit and Comments: Follow-up [[id number]] Observed: 2025 3:00 PM Status: COMPLETED Source: [facility] Department of Urology HISTORY & PHYSICAL Reason for Visit: Nephrolithiasis History of Present Illness: Diann Linder is a 75 y.o. female with a history of intermittent left-sided flank pain, bilateral nephrolithiasis measuring 3-4 cm on right and Left side, who is planned for Left side cystourethroscopy/ureteroscopy/HLL/stone basketing/possible retrograde pyelogram/stent placement, with Dr. Portillo, 02/02/2025. 2025 Patient returns to urology clinic regarding nephrolithiasis. She denies any dysuria or gross hematuria. Patient describes chronic back pain, difficult to separate back pain from potential flank pain. Patient is established with pain management clinic, back pain is currently managed with prescription [place]. Patient has known CAD, this is established with cardiology. No chest pain. Dyspnea on exertion, recovers at rest. No dyspnea at rest. Has not required use of nitroglycerin for a very long period of time. Baseline constipation is moderately improved. Labs are in chart Urine culture: 50,000 -100,000 CFU/mL urogenital courtney ECGs on chart Cardiac clearance is on chart, clinic visit from 08/31/2024 was addended on 01/04/2025, from cardiology regarding clearance for proceeding with procedure, to hold aspirin at least 7 days. Consent: Dr. Portillo has previously discussed with patient about the procedure Today we again discussed the rationale of performing the above procedure, including the potential risks associated with performing the left side cystourethroscopy/ureteroscopy/HLL/stone basketing/possible retrograde pyelogram/stent placement. We discussed that the procedure will be done with the use of anesthesia, and that anesthesia carries separate risks as well. Patient expressed that she wants to proceed with the procedure. Consent was signed and will be filed to chart. We reviewed: N.P.O. 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 difficile diarrhea Cancer ([facility]) Cataract CHF (congestive heart failure) ([facility]) CKD (chronic kidney disease) Colon polyp COPD (chronic obstructive pulmonary disease) ([facility]) Coronary artery disease CTS (carpal tunnel syndrome) Essential tremor Glaucoma Hematuria Hyperlipidemia Hypertension Hypothyroidism Kidney stone Osteoarthritis Sleep apnea Thyroid cancer ([facility]/HCC) Past Surgical History: Procedure Laterality Date APPENDECTOMY CARDIAC CATHETERIZATION CERVICAL SPINE SURGERY CHOLECYSTECTOMY HYSTERECTOMY THYROIDECTOMY TOTAL KNEE ARTHROPLASTY Bilateral Allergies Allergen Reactions Amoxicillin Hives Current Outpatient Medications: polyethylene glycol-electrolytes (Nulytely) 420 gram solution, See Instructions, 1 EA, Refill(s) 0, Per physician instructions, prior to colonoscopy., [facility]/pharmacy #[id number], 158, cm, 01/02/25 13:46:00 EDT, Height/Length Dosing, 96.6, kg, 01/02/25 13:46:00 EDT, Weight Dosing, Disp: , Rfl: alendronate (Fosamax) 35 mg tablet, Take 1 tablet every week by oral route for 84 days., Disp: , Rfl: aspirin 81 mg EC tablet, Take 1 tablet by mouth at bedtime., Disp: , Rfl: atorvastatin (Lipitor) 20 mg tablet, Take 20 mg by mouth in the morning., Disp: , Rfl: biotin 10,000 mcg capsule, Take by mouth two times daily., Disp: , Rfl: bisoprolol (Zebeta) 10 mg tablet, TAKE 1 TABLET EVERY DAY (Patient not taking: Reported on 2025), Disp: 90 tablet, Rfl: 3 CALCIUM-VITAMIN D3 ORAL, Take 1,000 mg by mouth two times daily., Disp: , Rfl: docusate sodium (Colace) 100 mg capsule, Take 100 mg by mouth at bedtime., Disp: , Rfl: doxepin (SINEquan) 10 mg capsule, Take 10 mg by mouth at bedtime., Disp: , Rfl: furosemide (Lasix) 20 mg tablet, Take 1 tablet (20 mg) by mouth every other day., Disp: 45 tablet, Rfl: 3 furosemide (Lasix) 40 mg tablet, TAKE alternating 40mg and 20mg every other day, Disp: 90 tablet, Rfl: 3 glucosamine HCl/chondroitin conklin (GLUCOSAMINE-CHONDROITIN ORAL), Take 1,500 mg by mouth two times daily., Disp: , Rfl: HYDROcodone-acetaminophen ([place]) 5-325 mg tablet, Take 1 tablet by mouth if needed in the morning and at bedtime., Disp: , Rfl: icosapent ethyL (Vascepa) 1 gram capsule, Take 2 capsules (2 g) by mouth 2 times daily., Disp: 120 capsule, Rfl: 11 isosorbide mononitrate ER (Imdur) 120 mg 24 hr tablet, TAKE 1 TABLET ONE TIME DAILY DIRECTED (DO NOT CRUSH OR CHEW) (Patient not taking: Reported on 2025), Disp: 90 tablet, Rfl: 3 Lactobacillus acidophilus (Probiotic) 10 billion cell capsule, Take by mouth in the morning., Disp: , Rfl: latanoprost (Xalatan) 0.005 % ophthalmic solution, Administer 1 drop into both eyes at bedtime., Disp: , Rfl: levothyroxine (Synthroid, Levoxyl) 125 mcg tablet, Take 125 mcg by mouth before breakfast., Disp: , Rfl: nitroglycerin (Nitrostat) 0.4 mg SL tablet, Place 1 tablet (0.4 mg) under the tongue every 5 (five) minutes if needed for chest pain. May repeat dose every 5 minutes for up to 3 doses total., Disp: 25 tablet, Rfl: 3 omeprazole (PriLOSEC) [address] capsule, Take 1 tablet by mouth in the morning., Disp: , Rfl: potassium chloride CR (Klor-Con M10) 10 mEq ER tablet, Take 10 mEq by mouth in the morning and at bedtime. Do not crush or chew., Disp: , Rfl: pregabalin (Lyrica) 150 mg capsule, Take 150 mg by mouth two times daily., Disp: , Rfl: primidone (Mysoline) 50 mg tablet, Take 25 mg by mouth at bedtime., Disp: , Rfl: ranolazine (Ranexa) 1,000 mg 12 hr tablet, Take 1 tablet (1,000 mg) by mouth two times daily. Do not crush, chew, or split., Disp: 180 tablet, Rfl: 3 sertraline (Zoloft) 100 mg tablet, Take 100 mg by mouth in the morning., Disp: , Rfl: tiZANidine (Zanaflex) 4 mg tablet, Take 8 mg by mouth at bedtime., Disp: , Rfl: Social History Socioeconomic History Marital status: Spouse name: Not on file Number of children: Not on file Years of education: Not on file Highest education level: Not on file Occupational History Not on file Tobacco Use Smoking status: Every Day Types: Cigarettes Smokeless tobacco: Never Substance and Sexual Activity Alcohol use: Not Currently Comment: occasional Drug use: Never Sexual activity: Not on file Other Topics Concern Not on file Social History Narrative Not on file Social Drivers of Health Financial Resource Strain: Not on file Food Insecurity: Not on file Transportation Needs: Not on file Physical Activity: Not on file Stress: Not on file Social Connections: Not on file Intimate Partner Violence: Unknown (07/02/2023) [place] Safety & Environment Fear of Current or Ex-Partner: Not on file Emotionally Abused: Not on file Physically Abused: Not on file Sexually Abused: Not on file Physically or Sexually Abused: Not on file Housing Stability: Not on file Additional Social History: Tobacco: 1 cigarette nightly Alcohol: none Drugs: None Family History Problem Relation Name Age of Onset Heart failure Mother Additional Family History: Mother: CHF Father: Unknown Physical Exam Physical Exam: Constitutional: Diann Linder in NO acute distress Psychiatric: Normal affect, alert and oriented HEENT: No scleral icterus Reading glasses for baseline visual impairment. Neck: Limited range of motion due to stiffness and pain, previous surgery with rods in place Pulmonary: LCTA bilat. Is not laboring to breathe Cardiovascular: Audible S1, S2. RRR. No obvious cyanosis of the extremities Abdomen: Soft, nontender. Extremities: Bilateral upper extremities with preserved strength and ROM Bilateral lower extremities with preserved strength and ROM No lower extremity edema Neurologic: Grossly nonfocal Skin: No jaundice Vital Signs: Blood pressure 111/73, pulse 65, weight 93.4 kg (206 lb), SpO2 94%. Admission Weight: Weight: 93.4 kg (206 lb) Labs: Lab Results Component Value Date WBC 6.26 01/24/2025 HGB 12.0 01/24/2025 HCT 37.1 01/24/2025 MCV 95.9 01/24/2025 PLT 214 01/24/2025 Lab Results Component Value Date CALCIUM 9.8 01/24/2025 NA 142 01/24/2025 K 4.2 01/24/2025 CO2 30 01/24/2025 CL 104 01/24/2025 BUN 21 01/24/2025 CREATININE 1.21 (H) 01/24/2025 No results found for: AMYLASE No results found for: LIPASE Lab Results Component Value Date ALT 7 01/24/2025 AST 12 (L) 01/24/2025 ALKPHOS 87 01/24/2025 No results found for: INR , PROTIME Imaging: EKG 12 lead Sinus bradycardia Nonspecific T wave abnormality Abnormal ECG Confirmed by Rigo Jaquez ([id number]) on 01/24/2025 10:42:34 PM Assessment: Diann Linder is a 75 y.o.female with a history of intermittent left-sided flank pain, bilateral nephrolithiasis measuring 3-4 cm on right and Left side, who is planned for Left side cystourethroscopy/ureteroscopy/HLL/stone basketing/possible retrograde pyelogram/stent placement, with Dr. Portillo, 02/02/2025. Plan: Discussed with patient significant calculus burden, despite best efforts, multiple procedures may be required to address each side Discussed stone prevention including adequate hydration, if tolerated, goal at least 70 ounces of liquids preferably water daily Try to limit sodium Proceed with procedure as currently scheduled Gail VANDANA Perez Urology Advanced Practice Provider PROGRESS Observed: 2025 3:00 PM Status: COMPLETED Source: [facility] Department of Urology HISTORY & PHYSICAL Reason for Visit: Nephrolithiasis History of Present Illness: Diann Linder is a 75 y.o. female with a history of intermittent left-sided flank pain, bilateral nephrolithiasis measuring 3-4 cm on right and Left side, who is planned for Left side cystourethroscopy/ureteroscopy/HLL/stone basketing/possible retrograde pyelogram/stent placement, with Dr. Portillo, 02/02/2025. 2025 Patient returns to urology clinic regarding nephrolithiasis. She denies any dysuria or gross hematuria. Patient describes chronic back pain, difficult to separate back pain from potential flank pain. Patient is established with pain management clinic, back pain is currently managed with prescription [place]. Patient has known CAD, this is established with cardiology. No chest pain. Dyspnea on exertion, recovers at rest. No dyspnea at rest. Has not required use of nitroglycerin for a very long period of time. Baseline constipation is moderately improved. Labs are in chart Urine culture: 50,000 -100,000 CFU/mL urogenital courtney ECGs on chart Cardiac clearance is on chart, clinic visit from 08/31/2024 was addended on 01/04/2025, from cardiology regarding clearance for proceeding with procedure, to hold aspirin at least 7 days. Consent: Dr. Portillo has previously discussed with patient about the procedure Today we again discussed the rationale of performing the above procedure, including the potential risks associated with performing the left side cystourethroscopy/ureteroscopy/HLL/stone basketing/possible retrograde pyelogram/stent placement. We discussed that the procedure will be done with the use of anesthesia, and that anesthesia carries separate risks as well. Patient expressed that she wants to proceed with the procedure. Consent was signed and will be filed to chart. We reviewed: N.P.O. 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 difficile diarrhea Cancer (CMS/HCC) Cataract CHF (congestive heart failure) ([facility]/HCC) CKD (chronic kidney disease) Colon polyp COPD (chronic obstructive pulmonary disease) ([facility]/HCC) Coronary artery disease CTS (carpal tunnel syndrome) Essential tremor Glaucoma Hematuria Hyperlipidemia Hypertension Hypothyroidism Kidney stone Osteoarthritis Sleep apnea Thyroid cancer ([facility]) Past Surgical History: Procedure Laterality Date APPENDECTOMY CARDIAC CATHETERIZATION CERVICAL SPINE SURGERY CHOLECYSTECTOMY HYSTERECTOMY THYROIDECTOMY TOTAL KNEE ARTHROPLASTY Bilateral Allergies Allergen Reactions Amoxicillin Hives Current Outpatient Medications: polyethylene glycol-electrolytes (Nulytely) 420 gram solution, See Instructions, 1 EA, Refill(s) 0, Per physician instructions, prior to colonoscopy., [facility]/pharmacy #[id number], 158, cm, 01/02/25 13:46:00 EDT, Height/Length Dosing, 96.6, kg, 01/02/25 13:46:00 EDT, Weight Dosing, Disp: , Rfl: alendronate (Fosamax) 35 mg tablet, Take 1 tablet every week by oral route for 84 days., Disp: , Rfl: aspirin 81 mg EC tablet, Take 1 tablet by mouth at bedtime., Disp: , Rfl: atorvastatin (Lipitor) 20 mg tablet, Take 20 mg by mouth in the morning., Disp: , Rfl: biotin 10,000 mcg capsule, Take by mouth two times daily., Disp: , Rfl: bisoprolol (Zebeta) 10 mg tablet, TAKE 1 TABLET EVERY DAY (Patient not taking: Reported on 2025), Disp: 90 tablet, Rfl: 3 CALCIUM-VITAMIN D3 ORAL, Take 1,000 mg by mouth two times daily., Disp: , Rfl: docusate sodium (Colace) 100 mg capsule, Take 100 mg by mouth at bedtime., Disp: , Rfl: doxepin (SINEquan) 10 mg capsule, Take 10 mg by mouth at bedtime., Disp: , Rfl: furosemide (Lasix) 20 mg tablet, Take 1 tablet (20 mg) by mouth every other day., Disp: 45 tablet, Rfl: 3 furosemide (Lasix) 40 mg tablet, TAKE alternating 40mg and 20mg every other day, Disp: 90 tablet, Rfl: 3 glucosamine HCl/chondroitin conklin (GLUCOSAMINE-CHONDROITIN ORAL), Take 1,500 mg by mouth two times daily., Disp: , Rfl: HYDROcodone-acetaminophen ([place]) 5-325 mg tablet, Take 1 tablet by mouth if needed in the morning and at bedtime., Disp: , Rfl: icosapent ethyL (Vascepa) 1 gram capsule, Take 2 capsules (2 g) by mouth 2 times daily., Disp: 120 capsule, Rfl: 11 isosorbide mononitrate ER (Imdur) 120 mg 24 hr tablet, TAKE 1 TABLET ONE TIME DAILY DIRECTED (DO NOT CRUSH OR CHEW) (Patient not taking: Reported on 2025), Disp: 90 tablet, Rfl: 3 Lactobacillus acidophilus (Probiotic) 10 billion cell capsule, Take by mouth in the morning., Disp: , Rfl: latanoprost (Xalatan) 0.005 % ophthalmic solution, Administer 1 drop into both eyes at bedtime., Disp: , Rfl: levothyroxine (Synthroid, Levoxyl) 125 mcg tablet, Take 125 mcg by mouth before breakfast., Disp: , Rfl: nitroglycerin (Nitrostat) 0.4 mg SL tablet, Place 1 tablet (0.4 mg) under the tongue every 5 (five) minutes if needed for chest pain. May repeat dose every 5 minutes for up to 3 doses total., Disp: 25 tablet, Rfl: 3 omeprazole (PriLOSEC) [address] capsule, Take 1 tablet by mouth in the morning., Disp: , Rfl: potassium chloride CR (Klor-Con M10) 10 mEq ER tablet, Take 10 mEq by mouth in the morning and at bedtime. Do not crush or chew., Disp: , Rfl: pregabalin (Lyrica) 150 mg capsule, Take 150 mg by mouth two times daily., Disp: , Rfl: primidone (Mysoline) 50 mg tablet, Take 25 mg by mouth at bedtime., Disp: , Rfl: ranolazine (Ranexa) 1,000 mg 12 hr tablet, Take 1 tablet (1,000 mg) by mouth two times daily. Do not crush, chew, or split., Disp: 180 tablet, Rfl: 3 sertraline (Zoloft) 100 mg tablet, Take 100 mg by mouth in the morning., Disp: , Rfl: tiZANidine (Zanaflex) 4 mg tablet, Take 8 mg by mouth at bedtime., Disp: , Rfl: Social History Socioeconomic History Marital status: Spouse name: Not on file Number of children: Not on file Years of education: Not on file Highest education level: Not on file Occupational History Not on file Tobacco Use Smoking status: Every Day Types: Cigarettes Smokeless tobacco: Never Substance and Sexual Activity Alcohol use: Not Currently Comment: occasional Drug use: Never Sexual activity: Not on file Other Topics Concern Not on file Social History Narrative Not on file Social Drivers of Health Financial Resource Strain: Not on file Food Insecurity: Not on file Transportation Needs: Not on file Physical Activity: Not on file Stress: Not on file Social Connections: Not on file Intimate Partner Violence: Unknown (07/02/2023) [place] Safety & Environment Fear of Current or Ex-Partner: Not on file Emotionally Abused: Not on file Physically Abused: Not on file Sexually Abused: Not on file Physically or Sexually Abused: Not on file Housing Stability: Not on file Additional Social History: Tobacco: 1 cigarette nightly Alcohol: none Drugs: None Family History Problem Relation Name Age of Onset Heart failure Mother Additional Family History: Mother: CHF Father: Unknown Physical Exam Physical Exam: Constitutional: Diann D Wells in NO acute distress Psychiatric: Normal affect, alert and oriented HEENT: No scleral icterus Reading glasses for baseline visual impairment. Neck: Limited range of motion due to stiffness and pain, previous surgery with rods in place Pulmonary: LCTA bilat. Is not laboring to breathe Cardiovascular: Audible S1, S2. RRR. No obvious cyanosis of the extremities Abdomen: Soft, nontender. Extremities: Bilateral upper extremities with preserved strength and ROM Bilateral lower extremities with preserved strength and ROM No lower extremity edema Neurologic: Grossly nonfocal Skin: No jaundice Vital Signs: Blood pressure 111/73, pulse 65, weight 93.4 kg (206 lb), SpO2 94%. Admission Weight: Weight: 93.4 kg (206 lb) Labs: Lab Results Component Value Date WBC 6.26 01/24/2025 HGB 12.0 01/24/2025 HCT 37.1 01/24/2025 MCV 95.9 01/24/2025 PLT 214 01/24/2025 Lab Results Component Value Date CALCIUM 9.8 01/24/2025 NA 142 01/24/2025 K 4.2 01/24/2025 CO2 30 01/24/2025 CL 104 01/24/2025 BUN 21 01/24/2025 CREATININE 1.21 (H) 01/24/2025 No results found for: AMYLASE No results found for: LIPASE Lab Results Component Value Date ALT 7 01/24/2025 AST 12 (L) 01/24/2025 ALKPHOS 87 01/24/2025 No results found for: INR , PROTIME Imaging: EKG 12 lead Sinus bradycardia Nonspecific T wave abnormality Abnormal ECG Confirmed by Rigo Jaquez ([id number]) on 01/24/2025 10:42:34 PM Assessment: Diann Linder is a 75 y.o.female with a history of intermittent left-sided flank pain, bilateral nephrolithiasis measuring 3-4 cm on right and Left side, who is planned for Left side cystourethroscopy/ureteroscopy/HLL/stone basketing/possible retrograde pyelogram/stent placement, with Dr. Portillo, 02/02/2025. Plan: Discussed with patient significant calculus burden, despite best efforts, multiple procedures may be required to address each side Discussed stone prevention including adequate hydration, if tolerated, goal at least 70 ounces of liquids preferably water daily Try to limit sodium Proceed with procedure as currently scheduled Gail Perez CNP Urology Advanced Practice Provider PATIENT EDUCATION Observed: 01/25/2025 9:46 AM Status: C Source: [facility] Patient Education Caregiving Fall Prevention in the Home, Adult Falls can cause injuries and can happen to people of all ages. There are many things you can do to make your home safer and to help prevent falls. What actions can I take to prevent falls? General information ??? Use good lighting in all rooms. Make sure to: ? Replace any light bulbs that burn out. ? Turn on the lights in dark areas and use night-lights. ??? Keep items that you use often in [id number] places. Lower the shelves around your home if needed. ??? Move furniture so that there are clear paths around it. ??? Do not use throw rugs or other things on the floor that can make you trip. ??? If any of your floors are uneven, fix them. ??? Add color or contrast paint or tape to clearly john and help you see: ? Grab bars or handrails. ? First and last steps of staircases. ? Where the edge of each step is. ??? If you use a ladder or stepladder: ? Make sure that it is fully opened. Do not climb a closed ladder. ? Make sure the sides of the ladder are locked in place. ? Have someone hold the ladder while you use it. ??? Know where your pets are as you move through your home. What can I do in the bathroom? Keep the floor dry. Clean up any water on the floor right away. ??? Remove soap buildup in the bathtub or shower. Buildup makes bathtubs and showers slippery. ??? Use non-skid mats or decals on the floor of the bathtub or shower. ??? Attach bath mats securely with double-sided, non-slip rug tape. ??? If you need to sit down in the shower, use a non-slip stool. ??? Install grab bars by the toilet and in the bathtub and shower. Do not use towel bars as grab bars. What can I do in the bedroom? Make sure that you have a light by your bed that is easy to reach. ??? Do not use any sheets or blankets on your bed that hang to the floor. ??? Have a firm chair or bench with side arms that you can use for support when you get dressed. What can I do in the kitchen? Clean up any spills right away. ??? If you need to reach something above you, use a step stool with a grab bar. ??? Keep electrical cords out of the way. ??? Do not use floor sami or wax that makes floors slippery. What can I do with my stairs? Do not leave anything on the stairs. ??? Make sure that you have a light switch at the top and the bottom of the stairs. ??? Make sure that there are handrails on both sides of the stairs. Fix handrails that are broken or loose. ??? Install non-slip stair treads on all your stairs if they do not have carpet. ??? Avoid having throw rugs at the top or bottom of the stairs. ??? Choose a carpet that does not hide the edge of the steps on the stairs. Make sure that the carpet is firmly attached to the stairs. Fix carpet that is loose or worn. What can I do on the outside of my home? Use bright outdoor lighting. ??? Fix the edges of walkways and driveways and fix any cracks. Clear paths of anything that can make you trip, such as tools or rocks. ??? Add color or contrast paint or tape to clearly john and help you see anything that might make you trip as you walk through a door, such as a raised step or threshold. ??? Trim any bushes or trees on paths to your home. ??? Check to see if handrails are loose or broken and that both sides of all steps have handrails. Install guardrails along the edges of any raised decks and porches. ??? Have leaves, snow, or ice cleared regularly. Use sand, salt, or ice melter on paths if you live where there is ice and snow during the winter. ??? Clean up any spills in your garage right away. This includes grease or oil spills. What other actions can I take? Review your medicines with your doctor. Some medicines can cause dizziness or changes in blood pressure, which increase your risk of falling. ??? Wear shoes that: ? Have a low heel. Do not wear high heels. ? Have rubber bottoms and are closed at the toe. ? Feel good on your feet and fit well. ??? Use tools that help you move around if needed. These include: ? Canes. ? Walkers. ? Scooters. ? Crutches. ??? Ask your doctor what else you can do to help prevent falls. This may include seeing a physical therapist to learn to do exercises to move better and get stronger. Where to find more information ??? Centers for Disease Control and Prevention, [place]: cdc.gov ??? National [place] on Aging: pascale.nih.gov ??? National [place] on Aging: pascale.nih.gov Contact a doctor if: ??? You are afraid of falling at home. ??? You feel weak, drowsy, or dizzy at home. ??? You fall at home. Get help right away if you: ??? Lose consciousness or have trouble moving after a fall. ??? Have a fall that causes a head injury. These symptoms may be an emergency. Get help right away. Call 911. ??? Do not wait to see if the symptoms will go away. ??? Do not drive yourself to the hospital. This information is not intended to replace advice given to you by your health care provider. Make sure you discuss any questions you have with your health care provider. Document Revised: 12/29/2022 Document Reviewed: 12/29/2022 [employer] Patient Education ? 2023 [employer]Emergency Medicine Heart Attack A heart attack occurs when blood and oxygen supply to the heart is cut off. A heart attack can cause damage to the heart that cannot be fixed. A heart attack is also called a myocardial infarction, or IA. If you think you are having a heart attack, do not wait to see if the symptoms will go away. Get medical help right away. What are the causes? This condition may be caused by: ??? A fatty substance (plaque) in the blood vessels (arteries). This can block the flow of blood to the heart. ??? A blood clot in the blood vessels that go to the heart. The blood clot blocks blood flow. ??? An abnormal heartbeat. ??? Some diseases, such as problems in red blood cells (anemia)orproblems in breathing (respiratory failure). ??? Tightening (spasm) of a blood vessel that cuts off blood to the heart. ??? A tear in a blood vessel of the heart. Other causes may include: ??? Using drugs such as cocaine or methamphetamine. ??? Low blood pressure. What increases the risk? Aging. The risk gets higher as you get older. ??? Having a personal or family history of chest pain, heart attack, stroke, or narrowing of the arteries in the legs, arms, head, or stomach (peripheral vascular disease). ??? Having taken chemotherapy or immune-suppressing medicines. ??? Being male. ??? Being overweight or obese. ??? Having any of these conditions: ? High blood pressure. ? High cholesterol. ? Diabetes. ??? Making lifestyle choices such as: ? Drinking too much alcohol. ? Not getting regular exercise. ? Smoking. What are the signs or symptoms? Chest pain. It may feel like: ? Crushing or squeezing. ? Tightness, pressure, fullness, or heaviness. ??? Pain in the arm, neck, jaw, back, or upper body. ??? Heartburn. ??? Upset stomach (indigestion). ??? Shortness of breath. ??? Feeling like you may vomit (nauseous). ??? Cold sweats. ??? Sudden light-headedness, dizziness, or passing out. ??? Feeling tired. How is this treated? A heart attack must be treated as soon as possible. Treatment may include: ??? Medicines to: ? Break up or dissolve blood clots. ? Thin your blood and help prevent blood clots. ? Treat blood pressure. ? Improve blood flow to the heart. ? Reduce pain. ? Reduce cholesterol. ??? Procedures to widen a blocked artery and keep it open. ??? Open heart surgery. ??? Making your heart strong again (cardiac rehabilitation) through exercise, education, and counseling. Follow these instructions at home: Medicines ??? Take [id number] and prescription medicines only as told by your doctor. ??? Do not take these medicines unless your doctor says it is okay: ? NSAIDs, such as ibuprofen, naproxen, or celecoxib. ? Any vitamins or supplements. ? Hormone replacement therapy that has estrogen with or without progestin. ??? If you are taking blood thinners: ? Talk with your doctor before taking any medicines that have aspirin or NSAIDs, such as ibuprofen. ? Take medicines exactly as told. Take them at the same time each day. ? Avoid doing things that could hurt or bruise you. Take action to prevent falls. ? Wear an alert bracelet or carry a card that shows you are taking blood thinners. Lifestyle ??? Do not smoke or use any products that contain nicotine or tobacco. If you need help quitting, ask your doctor. ??? Avoid secondhand smoke. ??? Exercise regularly. Ask your doctor about a cardiac rehab program. ??? Eat heart-healthy foods. Your doctor will tell you what foods to eat. ??? Stay at a healthy weight. ??? Learn ways to lower your stress level. ??? Do not use illegal drugs. Alcohol use ??? Do not drink alcohol if: ? Your doctor tells you not to drink. ? You are , may be , or are planning to become . ??? If you drink alcohol: ? Limit how much you have to: ? 0?1 drink a day for women. ? 0?2 drinks a day for men. ? Know how much alcohol is in your drink. In the [place] one drink equals one 12 oz bottle of beer (355 mL), one 5 oz glass of wine (148 mL), or one 1? oz glass of hard liquor (44 mL). General instructions ??? Work with your doctor to treat other problems you may have, such as diabetes or high blood pressure. ??? Get screened for depression. Get treatment if needed. ??? Keep your vaccines up to date. Get the flu shot (influenza vaccine) every year. ??? Keep all follow-up visits. Contact a doctor if: ??? You feel very sad. ??? You have trouble doing your daily activities. ??? You get light-headed or dizzy. Get help right away if: ??? You have sudden, unexplained discomfort in your chest, arms, back, neck, jaw, or upper body. ??? You have shortness of breath. ??? You have sudden sweating or clammy skin. ??? You feel like you may vomit or you vomit. ??? You feel tired or weak. ??? You feel your heart beating fast. ??? You feel your heart skipping beats. ??? You have blood pressure that is higher than 180/120. These symptoms may be an emergency. Get help right away. Call your local emergency services (911 in the [place] ??? Do not wait to see if the symptoms will go away. ??? Do not drive yourself to the hospital. Summary ??? A heart attack occurs when blood and oxygen supply to the heart is cut off. ??? Do not take NSAIDs unless your doctor says it is okay. ??? Do not smoke. Avoid secondhand smoke. ??? Exercise regularly. Ask your doctor about a cardiac rehab program. This information is not intended to replace advice given to you by your health care provider. Make sure you discuss any questions you have with your health care provider. Document Revised: 10/17/2021 Document Reviewed: 10/17/2021 [employer]acher Report Patient Education ? 2023 [employer].Mental and Behavioral Health Managing Depression, Adult Depression is a mental health condition that affects your thoughts, feelings, and actions. Being diagnosed with depression can bring you relief if you did not know why you have felt or behaved a certain way. It could also leave you feeling overwhelmed. Finding ways to manage your symptoms can help you feel more positive about your future. How to manage lifestyle changes Being depressed is difficult. Depression can increase the level of everyday stress. Stress can make depression symptoms worse. You may believe your symptoms cannot be managed or will never improve. However, there are many things you can try to help manage your symptoms. There is hope. Managing stress Stress is your body's reaction to life changes and events, both good and bad. Stress can add to your feelings of depression. Learning to manage your stress can help lessen your feelings of depression. Try some of the following approaches to reducing your stress (stress reduction techniques): ??? Listen to music that you enjoy and that inspires you. ??? Try using a meditation martin or take a meditation class. ??? Develop a practice that helps you connect with your spiritual self. Walk in nature, pray, or go to a place of buddhism. ??? Practice deep breathing. To do this, inhale slowly through your nose. Pause at the top of your inhale for a few seconds and then exhale slowly, letting yourself relax. Repeat this three or four times. ??? Practice yoga to help relax and work your muscles. Choose a stress reduction technique that works for you. These techniques take time and practice to develop. Set aside 5?15 minutes a day to do them. Therapists can offer training in these techniques. Do these things to help manage stress: ??? Keep a journal. ??? Know your limits. Set healthy boundaries for yourself and others, such as saying no when you think something is too much. ??? Pay attention to how you react to certain situations. You may not be able to control everything, but you can change your reaction. ??? Add humor to your life by watching funny movies or shows. ??? Make time for activities that you enjoy and that relax you. ??? Spend less time using electronics, especially at night before bed. The light from screens can make your brain think it is time to get up rather than go to bed. Medicines Medicines, such as antidepressants, are often a part of treatment for depression. ??? Talk with your pharmacist or health care provider about all the medicines, supplements, and herbal products that you take, their possible side effects, and what medicines and other products are safe to take together. ??? Make sure to report any side effects you may have to your health care provider. Relationships Your health care provider may suggest family therapy, couples therapy, or individual therapy as part of your treatment. How to recognize changes Everyone responds differently to treatment for depression. As you recover from depression, you may start to: ??? Have more interest in doing activities. ??? Feel more hopeful. ??? Have more energy. ??? Eat a more regular amount of food. ??? Have better mental focus. It is important to recognize if your depression is not getting better or is getting worse. The symptoms you had in the beginning may return, such as: ??? Feeling tired. ??? Eating too much or too little. ??? Sleeping too much or too little. ??? Feeling restless, agitated, or hopeless. ??? Trouble focusing or making decisions. ??? Having unexplained aches and pains. ??? Feeling irritable, angry, or aggressive. If you or your family members notice these symptoms coming back, let your health care provider know right away. Follow these instructions at home: Activity ??? Try to get some form of exercise each day, such as walking. ??? Try yoga, mindfulness, or other stress reduction techniques. ??? Participate in group activities if you are able. Lifestyle ??? Get enough sleep. ??? Cut down on or stop using caffeine, tobacco, alcohol, and any other harmful substances. ??? Eat a healthy diet that includes plenty of vegetables, fruits, whole grains, low-fat dairy products, and lean protein. Limit foods that are high in solid fats, added sugar, or salt (sodium). General instructions ??? Take ywou-ydf-iqitjld and prescription medicines only as told by your health care provider. ??? Keep all follow-up visits. It is important for your health care provider to check on your mood, behavior, and medicines. Your health care provider may need to make changes to your treatment. Where to find support Talking to others Friends and family members can be sources of support and guidance. Talk to trusted friends or family members about your condition. Explain your symptoms and let them know that you are working with a health care provider to treat your depression. Tell friends and family how they can help. Finances ??? Find mental health providers that fit with your financial situation. ??? Talk with your health care provider if you are worried about access to food, housing, or medicine. ??? Call your insurance company to learn about your co-pays and prescription plan. Where to find more information You can find support in your area from: ??? Anxiety and Depression Association of [place] (ADAA): adaa.org ??? Mental Health [place]: mentalhealthamerica.net ??? National [place] on Mental Illness: eloy.org Contact a health care provider if: ??? You stop taking your antidepressant medicines, and you have any of these symptoms: ? Nausea. ? Headache. ? Light-headedness. ? Chills and body aches. ? Not being able to sleep (insomnia). ??? You or your friends and family think your depression is getting worse. Get help right away if: ??? You have thoughts of hurting yourself or others. Get help right away if you feel like you may hurt yourself or others, or have thoughts about taking your own life. Go to your nearest emergency room or: ??? Call 911. ??? Call the National Suicide Prevention Lifeline at or 138. This is open 24 hours a day. ??? Text the Crisis Text Line at 552897. This information is not intended to replace advice given to you by your health care provider. Make sure you discuss any questions you have with your health care provider. Document Revised: 09/02/2022 Document Reviewed: 09/02/2022 [employer] Patient Education ? 2023 [employer].Nephrology Chronic Kidney Disease, Adult Chronic kidney disease is when lasting damage happens to the kidneys slowly over a long time. The kidneys help to: ??? Make pee (urine). ??? Make hormones. ??? Keep the right amount of fluids and chemicals in the body. Most often, this disease does not go away. You must take steps to help keep the kidney damage from getting worse. If steps are not taken, the kidneys might stop working forever. What are the causes? Diabetes. ??? High blood pressure. ??? Diseases that affect the heart and blood vessels. ??? Other kidney diseases. ??? Diseases of the body's disease-fighting system. ??? A problem with the flow of pee. ??? Infections of the organs that make pee, store it, and take it out of the body. ??? Swelling or irritation of your blood vessels. What increases the risk? Getting older. ??? Having someone in your family who has kidney disease or kidney failure. ??? Having a disease caused by genes. ??? Taking medicines often that harm the kidneys. ??? Being near or having contact with harmful substances. ??? Being very overweight. ??? Using tobacco now or in the past. What are the signs or symptoms? Feeling very tired. ??? Having a swollen face, legs, ankles, or feet. ??? Feeling like you may vomit or vomiting. ??? Not feeling hungry. ??? Being confused or not able to focus. ??? Twitches and cramps in the leg muscles or other muscles. ??? Dry, itchy skin. ??? A taste of metal in your mouth. ??? Making less pee, or making more pee. ??? Shortness of breath. ??? Trouble sleeping. You may also become anemic or get weak bones. Anemic means there is not enough red blood cells or hemoglobin in your blood. You may get symptoms slowly. You may not notice them until the kidney damage gets very bad. How is this treated? Often, there is no cure for this disease. Treatment can help with symptoms and help keep the disease from getting worse. You may need to: ??? Avoid alcohol. ??? Avoid foods that are high in salt, potassium, phosphorous, and protein. ??? Take medicines for symptoms and to help control other conditions. ??? Have dialysis. This treatment gets harmful waste out of your body. ??? Treat other problems that cause your kidney disease or make it worse. Follow these instructions at home: Medicines ??? Take wxjp-pcr-yiltxbr and prescription medicines only as told by your doctor. ??? Do not take any new medicines, vitamins, or supplements unless your doctor says it is okay. Lifestyle ??? Do not smoke or use any products that contain nicotine or tobacco. If you need help quitting, ask your doctor. ??? If you drink alcohol: ? Limit how much you use to: ? 0?1 drink a day for women who are not . ? 0?2 drinks a day for men. ? Know how much alcohol is in your drink. In the [place] one drink equals one 12 oz bottle of beer (355 mL), one 5 oz glass of wine (148 mL), or one 1? oz glass of hard liquor (44 mL). ??? Stay at a healthy weight. If you need help losing weight, ask your doctor. General instructions ??? Follow instructions from your doctor about what you cannot eat or drink. ??? Track your blood pressure at home. Tell your doctor about any changes. ??? If you have diabetes, track your blood sugar. ??? Exercise at least 30 minutes a day, 5 days a week. ??? Keep your shots (vaccinations) up to date. ??? Keep all follow-up visits. Where to find more information ??? [place] Association of Kidney Patients: www.aakp.org ??? National Kidney Foundation: www.kidney.org ??? [place] Kidney Fund: www.akfinc.org ??? Life Options: www.lifeoptions.org ??? Kidney School: www.kidneyschool.org Contact a doctor if: ??? Your symptoms get worse. ??? You get new symptoms. Get help right away if: ??? You get symptoms of end-stage kidney disease. These include: ? Headaches. ? Losing feeling in your hands or feet. ? Easy bruising. ? Having hiccups often. ? Chest pain. ? Shortness of breath. ? Lack of menstrual periods, in women. ??? You have a fever. ??? You make less pee than normal. ??? You have pain or you bleed when you pee or poop. These symptoms may be an emergency. Get help right away. Call your local emergency services (911 in the [place] ??? Do not wait to see if the symptoms will go away. ??? Do not drive yourself to the hospital. Summary ??? Chronic kidney disease is when lasting damage happens to the kidneys slowly over a long time. ??? Causes of this disease include diabetes and high blood pressure. ??? Often, there is no cure for this disease. Treatment can help symptoms and help keep the disease from getting worse. ??? Treatment may involve lifestyle changes, medicines, and dialysis. This information is not intended to replace advice given to you by your health care provider. Make sure you discuss any questions you have with your health care provider. Document Revised: 08/01/2020 Document Reviewed: 08/01/2020 [employer] Patient Education ? 2023 [employer].Nutrition DASH Eating Plan DASH stands for Dietary Approaches to Stop Hypertension. The DASH eating plan is a healthy eating plan that has been shown to: ??? Lower high blood pressure (hypertension). ??? Reduce your risk for type 2 diabetes, heart disease, and stroke. ??? Help with weight loss. What are tips for following this plan? Reading food labels ??? Check food labels for the amount of salt (sodium) per serving. Choose foods with less than 5 percent of the Daily Value (DV) of sodium. In general, foods with less than 300 milligrams (mg) of sodium per serving fit into this eating plan. ??? To find whole grains, look for the word whole as the first word in the ingredient list. Shopping ??? Buy products labeled as low-sodium or no salt added. ??? Buy fresh foods. Avoid canned foods and pre-made or frozen meals. Cooking ??? Try not to add salt when you cook. Use salt-free seasonings or herbs instead of table salt or sea salt. Check with your health care provider or pharmacist before using salt substitutes. ??? Do not seo foods. Cook foods in healthy ways, such as baking, boiling, grilling, roasting, or broiling. ??? Cook using oils that are good for your heart. These include olive, canola, avocado, soybean, and sunflower oil. Meal planning ??? Eat a balanced diet. This should include: ? 4 or more servings of fruits and 4 or more servings of vegetables each day. Try to fill half of your plate with fruits and vegetables. ? 6?8 servings of whole grains each day. ? 6 or less servings of lean meat, poultry, or fish each day. 1 oz is 1 serving. A 3 oz (85 g) serving of meat is about the same size as the palm of your hand. One egg is 1 oz (28 g). ? 2?3 servings of low-fat dairy each day. One serving is 1 cup (237 mL). ? 1 serving of nuts, seeds, or beans 5 times each week. ? 2?3 servings of heart-healthy fats. Healthy fats called omega-3 fatty acids are found in foods such as walnuts, flaxseeds, fortified milks, and eggs. These fats are also found in cold-water fish, such as sardines, salmon, and mackerel. ??? Limit how much you eat of: ? Canned or prepackaged foods. ? Food that is high in trans fat, such as fried foods. ? Food that is high in saturated fat, such as fatty meat. ? Desserts and other sweets, sugary drinks, and other foods with added sugar. ? Full-fat dairy products. ??? Do not salt foods before eating. ??? Do not eat more than 4 egg yolks a week. ??? Try to eat at least 2 vegetarian meals a week. ??? Eat more home-cooked food and less restaurant, buffet, and fast food. Lifestyle ??? When eating at a restaurant, ask if your food can be made with less salt or no salt. ??? If you drink alcohol: ? Limit how much you have to: ? 0?1 drink a day if you are female. ? 0?2 drinks a day if you are male. ? Know how much alcohol is in your drink. In the [place] one drink is one 12 oz bottle of beer (355 mL), one 5 oz glass of wine (148 mL), or one 1? oz glass of hard liquor (44 mL). General information ??? Avoid eating more than 2,300 mg of salt a day. If you have hypertension, you may need to reduce your sodium intake to 1,500 mg a day. ??? Work with your provider to stay at a healthy body weight or lose weight. Ask what the best weight range is for you. ??? On most days of the week, get at least 30 minutes of exercise that causes your heart to beat faster. This may include walking, swimming, or biking. ??? Work with your provider or dietitian to adjust your eating plan to meet your specific calorie needs. What foods should I eat? Fruits All fresh, dried, or frozen fruit. Canned fruits that are in their natural juice and do not have sugar added to them. Vegetables Fresh or frozen vegetables that are raw, steamed, roasted, or grilled. Low- sodium or reduced-sodium tomato and vegetable juice. Low-sodium or reduced-sodium tomato sauce and tomato paste. Low-sodium or reduced-sodium canned vegetables. Grains Whole-grain or whole-wheat bread. Whole-grain or whole-wheat pasta. Brown rice. Oatmeal. Quinoa. Bulgur. Whole-grain and low-sodium cereals. [place]ena bread. Low- fat, low-sodium crackers. Whole-wheat flour tortillas. Meats and other proteins Skinless chicken or turkey. Ground chicken or turkey. Pork with fat trimmed off. Fish and seafood. Egg whites. Dried beans, peas, or lentils. Unsalted nuts, nut butters, and seeds. Unsalted canned beans. Lean cuts of beef with fat trimmed off. Low- sodium, lean precooked or cured meat, such as sausages or meat loaves. Dairy Low-fat (1%) or fat-free (skim) milk. Reduced-fat, low-fat, or fat-free cheeses. Nonfat, low-sodium ricotta or cottage cheese. Low-fat or nonfat yogurt. Low-fat, low-sodium cheese. Fats and oils Soft margarine without trans fats. Vegetable oil. Reduced-fat, low-fat, or light mayonnaise and salad dressings (reduced-sodium). Canola, safflower, olive, avocado, soybean, and sunflower oils. Avocado. Seasonings and condiments Herbs. Spices. Seasoning mixes without salt. Other foods Unsalted popcorn and pretzels. Fat-free sweets. The items listed above may not be all the foods and drinks you can have. Talk to a dietitian to learn more. What foods should I avoid? Fruits Canned fruit in a light or heavy syrup. Fried fruit. Fruit in cream or butter sauce. Vegetables Creamed or fried vegetables. Vegetables in a cheese sauce. Regular canned vegetables that are not marked as low-sodium or reduced-sodium. Regular canned tomato sauce and paste that are not marked as low-sodium or reduced-sodium. Regular tomato and vegetable juices that are not marked as low-sodium or reduced-sodium. Pickles. Olives. Grains Baked goods made with fat, such as croissants, muffins, or some breads. Dry pasta or rice meal packs. Meats and other proteins Fatty cuts of meat. Ribs. Fried meat. Pascal. Bologna, salami, and other precooked or cured meats, such as sausages or meat loaves, that are not lean and low in sodium. Fat from the back of a pig (fatback). Bratwurst. Salted nuts and seeds. Canned beans with added salt. Canned or smoked fish. Whole eggs or egg yolks. Chicken or turkey with skin. Dairy Whole or 2% milk, cream, and [id number]. Whole or full-fat cream cheese. Whole-fat or sweetened yogurt. Full-fat cheese. Nondairy creamers. Whipped toppings. Processed cheese and cheese spreads. Fats and oils Butter. Stick margarine. Lard. Shortening. Ghee. Pascal fat. Tropical oils, such as coconut, palm kernel, or palm oil. Seasonings and condiments Onion salt, garlic salt, seasoned salt, table salt, and sea salt. [facility] sauce. Tartar sauce. Barbecue sauce. Teriyaki sauce. Soy sauce, including reduced-sodium soy sauce. Steak sauce. Canned and packaged gravies. Fish sauce. Oyster sauce. Cocktail sauce. Store-bought horseradish. Ketchup. Mustard. Meat flavorings and tenderizers. Bouillon cubes. Hot sauces. Pre-made or packaged marinades. Pre-made or packaged taco seasonings. Relishes. Regular salad dressings. Other foods Salted popcorn and pretzels. The items listed above may not be all the foods and drinks you should avoid. Talk to a dietitian to learn more. Where to find more information ??? National Heart, Lung, and Blood [place] (NHLBI): nhlbi.nih.gov ??? [place] Heart Association (AHA): heart.org ??? Academy of Nutrition and Dietetics: eatright.org ??? National Kidney Foundation (NKF): kidney.org This information is not intended to replace advice given to you by your health care provider. Make sure you discuss any questions you have with your health care provider. Document Revised: 05/14/2023 Document Reviewed: 05/14/2023 [employer] Patient Education ? 2023 [employer]. PATIENT EDUCATION Observed: 01/25/2025 8:08 AM Status: F Source: [facility] Patient Education Urology Kidney Stones Kidney stones are rock-like masses that form inside of the kidneys. Kidneys are organs that make pee (urine). A kidney stone may move into other parts of the urinary tract, including: ??? The tubes that connect the kidneys to the bladder (ureters). ??? The bladder. ??? The tube that carries urine out of the body (urethra). Kidney stones can cause very bad pain and can block the flow of pee. The stone usually leaves your body through your pee. A doctor may need to take out the stone. What are the causes? Kidney stones may be caused by: ??? Too much calcium in the body. This may be caused by too much parathyroid hormone in the blood. ??? Uric acid crystals in the bladder. The body makes uric acid when you eat certain foods. ??? Narrowing of one or both of the ureters. ??? A kidney blockage that you were born with. ??? Past surgery on the kidney or the ureters. What increases the risk? You are more likely to develop this condition if: ??? You have had a kidney stone in the past. ??? Other people in your family have had kidney stones. ??? You do not drink enough water. ??? You eat a diet that is high in protein, salt (sodium), or sugar. ??? You are very overweight (obese). What are the signs or symptoms? Symptoms of a kidney stone may include: ??? Pain in the side of the belly, right below the ribs. Pain usually spreads to the groin. ??? Needing to pee often or right away. ??? Pain when peeing. ??? Blood in your pee. ??? Feeling like you may vomit (nauseous). ??? Vomiting. ??? Fever and chills. How is this treated? Treatment depends on the size, location, and makeup of the kidney stones. The stones will often pass out of the body when you pee. You may need to: ??? Drink more fluid to help pass the stone. ? In some cases, you may be given fluids through an IV tube at the hospital. ??? Take medicine for pain. ??? Change your diet to help keep kidney stones from coming back. Sometimes, you may need: ??? A procedure to break up kidney stones using a beam of light (laser) or shock waves. ??? Surgery to remove the kidney stones. Follow these instructions at home: Medicines ??? Take ebjj-wdg-[id number] and prescription medicines only as told by your doctor. ??? Ask your doctor if the medicine prescribed to you requires you to avoid driving or using machinery. Eating and drinking ??? Drink enough fluid to keep your pee pale yellow. ? You may be told to drink at least 8?10 glasses of water each day. This will help you pass the stone. ??? If told by your doctor, change your diet. You may be told to: ? Limit how much salt you eat. ? Eat more fruits and vegetables. ? Limit how much meat, poultry, fish, and eggs you eat. ??? Follow instructions from your doctor about what you may eat and drink. General instructions ??? Collect pee samples as told by your doctor. You may need to collect a pee sample: ? 24 hours after a stone comes out. ? 8?12 weeks after a stone comes out, and every 6?12 months after that. ??? Strain your pee every time you pee. Use the strainer that your doctor recommends. ??? Do not throw out the stone. Keep it so that it can be tested by your doctor. ??? Keep all follow-up visits. You may need X-rays and ultrasounds to make sure the stone has come out. How is this prevented? To prevent another kidney stone: ??? Drink enough fluid to keep your pee pale yellow. This is the best way to prevent kidney stones. ??? Eat healthy foods. ??? Avoid certain foods as told by your doctor. You may be told to eat less protein. ??? Stay at a healthy weight. Where to find more information ??? National Kidney Foundation (NKF): kidney.org ??? [facility] (UCF): urologyhealth.org Contact a doctor if: ??? You have pain that gets worse or does not get better with medicine. Get help right away if: ??? You have a fever or chills. ??? You get very bad pain. ??? You get new pain in your belly. ??? You faint. ??? You cannot pee. This information is not intended to replace advice given to you by your health care provider. Make sure you discuss any questions you have with your health care provider. Document Revised: 12/19/2022 Document Reviewed: 12/19/2022 [employer] Patient Education ? 2023 [employer]. AMBULATORY VISIT SUMMARY Observed: 01/25 7:56 AM Status: F Source: [facility] Ambulatory Visit Summary DIANN LINDER :1950 Visit Date:01/25/2025 Ambulatory Visit Instructions Your Diagnosis Encounter for Medicare annual examination with abnormal findings Chronic diastolic congestive heart failure Chronic kidney disease, stage 3a Chronic obstructive pulmonary disease Hypertensive heart and kidney disease with heart failure Thyroid cancer Depression Hyperlipidemia Hypertension Hypothyroid Breast cancer screening by mammogram Advanced directives, counseling/discussion Obesity due to excess calories Tests Performed MA Mamm Screen w/CAD if perf and 3D Damion -- Results Pending -- Please visit your patient portal for your results or contact your primary care physician. Your Care Team Attending Physician - Art SOMMERS, Amilcar Carr Primary Care Physician - JORDEN BERRIOS CNP This Is Your Medications List acetaminophen-hydrocodone ([place] 325 mg-5 mg oral tablet) ascorbic acid/chondroitin/glucosa/jayson (Glucosamine Chondroitin oral capsule) aspirin (aspirin 81 mg Oral EC Tab) atorvastatin (atorvastatin 40 mg Tab) biotin bisoprolol (bisoprolol 10 mg Tab) calcium-vitamin D (calcium-vitamin D extended release) docusate (Colace 100 mg Cap) doxepin (doxepin 10 mg Cap) furosemide (furosemide 40 mg Tab) icosapent (Vascepa 1 g oral capsule) isosorbide mononitrate (isosorbide mononitrate 120 mg ER Tab) latanoprost ophthalmic (latanoprost Opth 0.005% Ginette) levothyroxine (Synthroid 125 mcg (0.125 mg) Tab) nitroglycerin (nitroglycerin 0.4 mg sublingual Tab) omeprazole potassium chloride (Klor Con 10 mEq Cap-ER) pregabalin (pregabalin 150 mg Cap) primidone (primidone 50 mg Tab) ranolazine (ranolazine 1000 mg oral tablet, extended release) sertraline (sertraline 100 mg Tab) tizanidine (tiZANidine 4 mg Tab) Procedures Performed Colonoscopy (01/11/2025), Radiofrequency ablation of nerve root of lumbar spine using fluoroscopic guidance (05/02/2024), Skin cancer (02/04/2024), Glaucoma drainage surgery (01/04/2024), Injection of facet joint using fluoroscopic guidance (09/02/2023), Injection of facet joint using fluoroscopic guidance (07/15/2023), Epidural injection of lumbar spine using fluoroscopic guidance (01/21/2023), Epidural injection of lumbar spine using fluoroscopic [...] fluoroscopic guidance (11/21/2015), Appendectomy, Arthroplasty of knee, Cancer of skin, Cataract, Cholecystectomy, Colonoscopy, Glaucoma surgery, Hysterectomy, Injection of nerve root of lumbar spine using fluoroscopic guidance, Thyroidectomy. Discharge Vitals Heart Rate (Peripheral) 62 Respiratory Rate 18 Blood Pressure 128/84 Height 158 cm Height 62 in Weight 97.4 kg Weight 214.73 lb BMI 39.02 What to do next Scheduled Follow-Up Appointments 2024 1:20 PM EST With: JORDEN BERRIOS CNP Where: [address] [id number]- [id number] 1:00 PM EDT With: Where: [address] [address]- Medications What How Much When Why Instructions Unchanged acetaminophen-hydrocodone ([place] 325 mg-5 mg oral tablet) 1 Tablets By Mouth 2 times a day as needed for as needed for pain Back pain, chronic Unchanged ascorbic acid/ chondroitin/ glucosa/ jayson (Glucosamine Chondroitin oral capsule) 1 cap By Mouth 2 times a day Unchanged aspirin (aspirin 81 mg Oral EC Tab) 1 Tablets By Mouth Every day Unchanged atorvastatin (atorvastatin 40 mg Tab) Unchanged biotin 1 Tablets By Mouth 2 times a day Unchanged bisoprolol (bisoprolol 10 mg Tab) 1 Tablets By Mouth Every day Unchanged calcium-vitamin D (calcium-vitamin D extended release) 2 Tablets By Mouth Once a day (in the morning) Unchanged docusate (Colace 100 mg Cap) 1 Capsules By Mouth 2 times a day as needed for for constipation Unchanged doxepin (doxepin 10 mg Cap) 1 Capsules By Mouth Every day Unchanged furosemide (furosemide 40 mg Tab) See instructions Takes 20mg every other day and then 40mg on the other days Unchanged icosapent (Vascepa 1 g oral capsule) 2 Capsules By Mouth 2 times a day Unchanged isosorbide mononitrate (isosorbide mononitrate 120 mg ER Tab) 1 Tablets By Mouth Once a day (in the morning) Unchanged latanoprost ophthalmic (latanoprost Opth 0.005% Ginette) 1 Drops Ophthalmic Once a day (at bedtime) Unchanged levothyroxine (Synthroid 125 mcg (0.125 mg) Tab) 125 Microgram By Mouth Every day Unchanged nitroglycerin (nitroglycerin 0.4 mg sublingual Tab) 1 Tablets Sublingual Every 5 minutes as needed for for chest pain Unchanged omeprazole 20 Milligram By Mouth Every day Unchanged potassium chloride (Klor Con 10 mEq Cap-ER) 1 tab By Mouth 2 times a day Unchanged pregabalin (pregabalin 150 mg Cap) Unchanged primidone (primidone 50 mg Tab) 1 Tablets By Mouth Once a day (at bedtime) Unchanged ranolazine (ranolazine 1000 mg oral tablet, extended release) 1 Tablets By Mouth 2 times a day TAKE 1 TABLET BY MOUTH TWO TIMES A DAY Unchanged sertraline (sertraline 100 mg Tab) 1 Tablets By Mouth Every day UTI (urinary tract infection) Depression Former smoker Obesity (BMI 30-39.9) Unchanged tizanidine (tiZANidine 4 mg Tab) 2 Tablets By Mouth At bedtime Allergies amoxicillin (Hives) Problems Ongoing - Any problem that you are currently receiving treatment for. Altered bowel habits Arthritis BMI 39.0-39.9,adult C. difficile diarrhea Cellulitis of leg Chronic diastolic congestive heart failure Chronic kidney disease, stage 3a Chronic obstructive pulmonary disease Depression Former smoker Glaucoma H/O hematuria Heart disease Hx of basal cell carcinoma Hx of thyroid cancer Hyperlipidemia Hypertension Hypertensive heart and kidney disease with heart failure Hypothyroid Incontinence Iron deficiency anemia Kidney stones Long-term current use of opiate analgesic drug Nonsmoker Obesity (BMI 30-39.9) Renal mass S/P cholecystectomy SK (seborrheic keratosis) Skin cancer Sleep apnea Smoker SOB (shortness of breath) Thyroid cancer Historical - Any problem that you are no longer receiving treatment for. Anxiety Arthritis Carpal tunnel Hypotension Liver disease Microscopic hematuria Osteopenia Thyroid cancer Trigeminal neuralgia of left side of face Patient Survey You may receive a survey via text or e-mail asking about your office visit. Please share your experience with us by completing your survey. We appreciate your feedback and thank you for choosing us for your care. Education Materials Heart Attack A heart attack occurs when blood and oxygen supply to the heart is cut off. A heart attack can cause damage to the heart that cannot be fixed. A heart attack is also called a myocardial infarction, or IA. If you think you are having a heart attack, do not wait to see if the symptoms will go away. Get medical help right away. What are the causes? This condition may be caused by: ??? A fatty substance (plaque) in the blood vessels (arteries). This can block the flow of blood to the heart. ??? A blood clot in the blood vessels that go to the heart. The blood clot blocks blood flow. ??? An abnormal heartbeat. ??? Some diseases, such as problems in red blood cells (anemia)orproblems in breathing (respiratory failure). ??? Tightening (spasm) of a blood vessel that cuts off blood to the heart. ??? A tear in a blood vessel of the heart. Other causes may include: ??? Using drugs such as cocaine or methamphetamine. ??? Low blood pressure. What increases the risk? Aging. The risk gets higher as you get older. ??? Having a personal or family history of chest pain, heart attack, stroke, or narrowing of the arteries in the legs, arms, head, or stomach (peripheral vascular disease). ??? Having taken chemotherapy or immune-suppressing medicines. ??? Being male. ??? Being overweight or obese. ??? Having any of these conditions: ? High blood pressure. ? High cholesterol. ? Diabetes. ??? Making lifestyle choices such as: ? Drinking too much alcohol. ? Not getting regular exercise. ? Smoking. What are the signs or symptoms? Chest pain. It may feel like: ? Crushing or squeezing. ? Tightness, pressure, fullness, or heaviness. ??? Pain in the arm, neck, jaw, back, or upper body. ??? Heartburn. ??? Upset stomach (indigestion). ??? Shortness of breath. ??? Feeling like you may vomit (nauseous). ??? Cold sweats. ??? Sudden light-headedness, dizziness, or passing out. ??? Feeling tired. How is this treated? A heart attack must be treated as soon as possible. Treatment may include: ??? Medicines to: ? Break up or dissolve blood clots. ? Thin your blood and help prevent blood clots. ? Treat blood pressure. ? Improve blood flow to the heart. ? Reduce pain. ? Reduce cholesterol. ??? Procedures to widen a blocked artery and keep it open. ??? Open heart surgery. ??? Making your heart strong again (cardiac rehabilitation) through exercise, education, and counseling. Follow these instructions at home: Medicines ??? Take [id number] and prescription medicines only as told by your doctor. ??? Do not take these medicines unless your doctor says it is okay: ? NSAIDs, such as ibuprofen, naproxen, or celecoxib. ? Any vitamins or supplements. ? Hormone replacement therapy that has estrogen with or without progestin. ??? If you are taking blood thinners: ? Talk with your doctor before taking any medicines that have aspirin or NSAIDs, such as ibuprofen. ? Take medicines exactly as told. Take them at the same time each day. ? Avoid doing things that could hurt or bruise you. Take action to prevent falls. ? Wear an alert bracelet or carry a card that shows you are taking blood thinners. Lifestyle ??? Do not smoke or use any products that contain nicotine or tobacco. If you need help quitting, ask your doctor. ??? Avoid secondhand smoke. ??? Exercise regularly. Ask your doctor about a cardiac rehab program. ??? Eat heart-healthy foods. Your doctor will tell you what foods to eat. ??? Stay at a healthy weight. ??? Learn ways to lower your stress level. ??? Do not use illegal drugs. Alcohol use ??? Do not drink alcohol if: ? Your doctor tells you not to drink. ? You are , may be , or are planning to become . ??? If you drink alcohol: ? Limit how much you have to: ? 0???1 drink a day for women. ? 0???2 drinks a day for men. ? Know how much alcohol is in your drink. In the [place] one drink equals one 12 oz bottle of beer (355 mL), one 5 oz glass of wine (148 mL), or one 1??? oz glass of hard liquor (44 mL). General instructions ??? Work with your doctor to treat other problems you may have, such as diabetes or high blood pressure. ??? Get screened for depression. Get treatment if needed. ??? Keep your vaccines up to date. Get the flu shot (influenza vaccine) every year. ??? Keep all follow-up visits. Contact a doctor if: ??? You feel very sad. ??? You have trouble doing your daily activities. ??? You get light-headed or dizzy. Get help right away if: ??? You have sudden, unexplained discomfort in your chest, arms, back, neck, jaw, or upper body. ??? You have shortness of breath. ??? You have sudden sweating or clammy skin. ??? You feel like you may vomit or you vomit. ??? You feel tired or weak. ??? You feel your heart beating fast. ??? You feel your heart skipping beats. ??? You have blood pressure that is higher than 180/120. These symptoms may be an emergency. Get help right away. Call your local emergency services (911 in the [place] ??? Do not wait to see if the symptoms will go away. ??? Do not drive yourself to the hospital. Summary ??? A heart attack occurs when blood and oxygen supply to the heart is cut off. ??? Do not take NSAIDs unless your doctor says it is okay. ??? Do not smoke. Avoid secondhand smoke. ??? Exercise regularly. Ask your doctor about a cardiac rehab program. This information is not intended to replace advice given to you by your health care provider. Make sure you discuss any questions you have with your health care provider. Document Revised: 10/17/2021 Document Reviewed: 10/17/2021 [employer] Patient Education ??? 2023 [employer]. Managing Depression, Adult Depression is a mental health condition that affects your thoughts, feelings, and actions. Being diagnosed with depression can bring you relief if you did not know why you have felt or behaved a certain way. It could also leave you feeling overwhelmed. Finding ways to manage your symptoms can help you feel more positive about your future. How to manage lifestyle changes Being depressed is difficult. Depression can increase the level of everyday stress. Stress can make depression symptoms worse. You may believe your symptoms cannot be managed or will never improve. However, there are many things you can try to help manage your symptoms. There is hope. Managing stress Stress is your body's reaction to life changes and events, both good and bad. Stress can add to your feelings of depression. Learning to manage your stress can help lessen your feelings of depression. Try some of the following approaches to reducing your stress (stress reduction techniques): ??? Listen to music that you enjoy and that inspires you. ??? Try using a meditation martin or take a meditation class. ??? Develop a practice that helps you connect with your spiritual self. Walk in nature, pray, or go to a place of buddhism. ??? Practice deep breathing. To do this, inhale slowly through your nose. Pause at the top of your inhale for a few seconds and then exhale slowly, letting yourself relax. Repeat this three or four times. ??? Practice yoga to help relax and work your muscles. Choose a stress reduction technique that works for you. These techniques take time and practice to develop. Set aside 5???15 minutes a day to do them. Therapists can offer training in these techniques. Do these things to help manage stress: ??? Keep a journal. ??? Know your limits. Set healthy boundaries for yourself and others, such as saying no when you think something is too much. ??? Pay attention to how you react to certain situations. You may not be able to control everything, but you can change your reaction. ??? Add humor to your life by watching funny movies or shows. ??? Make time for activities that you enjoy and that relax you. ??? Spend less time using electronics, especially at night before bed. The light from screens can make your brain think it is time to get up rather than go to bed. Medicines Medicines, such as antidepressants, are often a part of treatment for depression. ??? Talk with your pharmacist or health care provider about all the medicines, supplements, and herbal products that you take, their possible side effects, and what medicines and other products are safe to take together. ??? Make sure to report any side effects you may have to your health care provider. Relationships Your health care provider may suggest family therapy, couples therapy, or individual therapy as part of your treatment. How to recognize changes Everyone responds differently to treatment for depression. As you recover from depression, you may start to: ??? Have more interest in doing activities. ??? Feel more hopeful. ??? Have more energy. ??? Eat a more regular amount of food. ??? Have better mental focus. It is important to recognize if your depression is not getting better or is getting worse. The symptoms you had in the beginning may return, such as: ??? Feeling tired. ??? Eating too much or too little. ??? Sleeping too much or too little. ??? Feeling restless, agitated, or hopeless. ??? Trouble focusing or making decisions. ??? Having unexplained aches and pains. ??? Feeling irritable, angry, or aggressive. If you or your family members notice these symptoms coming back, let your health care provider know right away. Follow these instructions at home: Activity ??? Try to get some form of exercise each day, such as walking. ??? Try yoga, mindfulness, or other stress reduction techniques. ??? Participate in group activities if you are able. Lifestyle ??? Get enough sleep. ??? Cut down on or stop using caffeine, tobacco, alcohol, and any other harmful substances. ??? Eat a healthy diet that includes plenty of vegetables, fruits, whole grains, low-fat dairy products, and lean protein. Limit foods that are high in solid fats, added sugar, or salt (sodium). General instructions ??? Take zdne-[id number] and prescription medicines only as told by your health care provider. ??? Keep all follow-up visits. It is important for your health care provider to check on your mood, behavior, and medicines. Your health care provider may need to make changes to your treatment. Where to find support Talking to others Friends and family members can be sources of support and guidance. Talk to trusted friends or family members about your condition. Explain your symptoms and let them know that you are working with a health care provider to treat your depression. Tell friends and family how they can help. Finances ??? Find mental health providers that fit with your financial situation. ??? Talk with your health care provider if you are worried about access to food, housing, or medicine. ??? Call your insurance company to learn about your co-pays and prescription plan. Where to find more information You can find support in your area from: ??? Anxiety and Depression Association of [place] (ADAA): adaa.org ??? Mental Health [place]: mentalhealthamerica.net ??? National [place] on Mental Illness: eloy.org Contact a health care provider if: ??? You stop taking your antidepressant medicines, and you have any of these symptoms: ? Nausea. ? Headache. ? Light-headedness. ? Chills and body aches. ? Not being able to sleep (insomnia). ??? You or your friends and family think your depression is getting worse. Get help right away if: ??? You have thoughts of hurting yourself or others. Get help right away if you feel like you may hurt yourself or others, or have thoughts about taking your own life. Go to your nearest emergency room or: ??? Call 911. ??? Call the National Suicide Prevention Lifeline at or 692. This is open 24 hours a day. ??? Text the Crisis Text Line at 532667. This information is not intended to replace advice given to you by your health care provider. Make sure you discuss any questions you have with your health care provider. Document Revised: 09/02/2022 Document Reviewed: 09/02/2022 [employer] Patient Education ??? 2023 [employer] Fall Prevention in the Home, Adult Falls can cause injuries and can happen to people of all ages. There are many things you can do to make your home safer and to help prevent falls. What actions can I take to prevent falls? General information ??? Use good lighting in all rooms. Make sure to: ? Replace any light bulbs that burn out. ? Turn on the lights in dark areas and use night-lights. ??? Keep items that you use often in knfe-km-arplw places. Lower the shelves around your home if needed. ??? Move furniture so that there are clear paths around it. ??? Do not use throw rugs or other things on the floor that can make you trip. ??? If any of your floors are uneven, fix them. ??? Add color or contrast paint or tape to clearly john and help you see: ? Grab bars or handrails. ? First and last steps of staircases. ? Where the edge of each step is. ??? If you use a ladder or stepladder: ? Make sure that it is fully opened. Do not climb a closed ladder. ? Make sure the sides of the ladder are locked in place. ? Have someone hold the ladder while you use it. ??? Know where your pets are as you move through your home. What can I do in the bathroom? Keep the floor dry. Clean up any water on the floor right away. ??? Remove soap buildup in the bathtub or shower. Buildup makes bathtubs and showers slippery. ??? Use non-skid mats or decals on the floor of the bathtub or shower. ??? Attach bath mats securely with double-sided, non-slip rug tape. ??? If you need to sit down in the shower, use a non-slip stool. ??? Install grab bars by the toilet and in the bathtub and shower. Do not use towel bars as grab bars. What can I do in the bedroom? Make sure that you have a light by your bed that is easy to reach. ??? Do not use any sheets or blankets on your bed that hang to the floor. ??? Have a firm chair or bench with side arms that you can use for support when you get dressed. What can I do in the kitchen? Clean up any spills right away. ??? If you need to reach something above you, use a step stool with a grab bar. ??? Keep electrical cords out of the way. ??? Do not use floor sami or wax that makes floors slippery. What can I do with my stairs? Do not leave anything on the stairs. ??? Make sure that you have a light switch at the top and the bottom of the stairs. ??? Make sure that there are handrails on both sides of the stairs. Fix handrails that are broken or loose. ??? Install non-slip stair treads on all your stairs if they do not have carpet. ??? Avoid having throw rugs at the top or bottom of the stairs. ??? Choose a carpet that does not hide the edge of the steps on the stairs. Make sure that the carpet is firmly attached to the stairs. Fix carpet that is loose or worn. What can I do on the outside of my home? Use bright outdoor lighting. ??? Fix the edges of walkways and driveways and fix any cracks. Clear paths of anything that can make you trip, such as tools or rocks. ??? Add color or contrast paint or tape to clearly john and help you see anything that might make you trip as you walk through a door, such as a raised step or threshold. ??? Trim any bushes or trees on paths to your home. ??? Check to see if handrails are loose or broken and that both sides of all steps have handrails. Install guardrails along the edges of any raised decks and porches. ??? Have leaves, snow, or ice cleared regularly. Use sand, salt, or ice melter on paths if you live where there is ice and snow during the winter. ??? Clean up any spills in your garage right away. This includes grease or oil spills. What other actions can I take? Review your medicines with your doctor. Some medicines can cause dizziness or changes in blood pressure, which increase your risk of falling. ??? Wear shoes that: ? Have a low heel. Do not wear high heels. ? Have rubber bottoms and are closed at the toe. ? Feel good on your feet and fit well. ??? Use tools that help you move around if needed. These include: ? Canes. ? Walkers. ? Scooters. ? Crutches. ??? Ask your doctor what else you can do to help prevent falls. This may include seeing a physical therapist to learn to do exercises to move better and get stronger. Where to find more information ??? Centers for Disease Control and Prevention, [place]: cdc.gov ??? National [place] on Aging: pascale.nih.gov ??? National [place] on Aging: pascale.nih.gov Contact a doctor if: ??? You are afraid of falling at home. ??? You feel weak, drowsy, or dizzy at home. ??? You fall at home. Get help right away if you: ??? Lose consciousness or have trouble moving after a fall. ??? Have a fall that causes a head injury. These symptoms may be an emergency. Get help right away. Call 911. ??? Do not wait to see if the symptoms will go away. ??? Do not drive yourself to the hospital. This information is not intended to replace advice given to you by your health care provider. Make sure you discuss any questions you have with your health care provider. Document Revised: 12/29/2022 Document Reviewed: 12/29/2022 [employer] Patient Education ??? 2023 [employer] DASH Eating Plan DASH stands for Dietary Approaches to Stop Hypertension. The DASH eating plan is a healthy eating plan that has been shown to: ??? Lower high blood pressure (hypertension). ??? Reduce your risk for type 2 diabetes, heart disease, and stroke. ??? Help with weight loss. What are tips for following this plan? Reading food labels ??? Check food labels for the amount of salt (sodium) per serving. Choose foods with less than 5 percent of the Daily Value (DV) of sodium. In general, foods with less than 300 milligrams (mg) of sodium per serving fit into this eating plan. ??? To find whole grains, look for the word whole as the first word in the ingredient list. Shopping ??? Buy products labeled as low-sodium or no salt added. ??? Buy fresh foods. Avoid canned foods and pre-made or frozen meals. Cooking ??? Try not to add salt when you cook. Use salt-free seasonings or herbs instead of table salt or sea salt. Check with your health care provider or pharmacist before using salt substitutes. ??? Do not seo foods. Cook foods in healthy ways, such as baking, boiling, grilling, roasting, or broiling. ??? Cook using oils that are good for your heart. These include olive, canola, avocado, soybean, and sunflower oil. Meal planning ??? Eat a balanced diet. This should include: ? 4 or more servings of fruits and 4 or more servings of vegetables each day. Try to fill half of your plate with fruits and vegetables. ? 6???8 servings of whole grains each day. ? 6 or less servings of lean meat, poultry, or fish each day. 1 oz is 1 serving. A 3 oz (85 g) serving of meat is about the same size as the palm of your hand. One egg is 1 oz (28 g). ? 2???3 servings of low-fat dairy each day. One serving is 1 cup (237 mL). ? 1 serving of nuts, seeds, or beans 5 times each week. ? 2???3 servings of heart-healthy fats. Healthy fats called omega-3 fatty acids are found in foods such as walnuts, flaxseeds, fortified milks, and eggs. These fats are also found in cold-water fish, such as sardines, salmon, and mackerel. ??? Limit how much you eat of: ? Canned or prepackaged foods. ? Food that is high in trans fat, such as fried foods. ? Food that is high in saturated fat, such as fatty meat. ? Desserts and other sweets, sugary drinks, and other foods with added sugar. ? Full-fat dairy products. ??? Do not salt foods before eating. ??? Do not eat more than 4 egg yolks a week. ??? Try to eat at least 2 vegetarian meals a week. ??? Eat more home-cooked food and less restaurant, buffet, and fast food. Lifestyle ??? When eating at a restaurant, ask if your food can be made with less salt or no salt. ??? If you drink alcohol: ? Limit how much you have to: ? 0???1 drink a day if you are female. ? 0???2 drinks a day if you are male. ? Know how much alcohol is in your drink. In the [place] one drink is one 12 oz bottle of beer (355 mL), one 5 oz glass of wine (148 mL), or one 1??? oz glass of hard liquor (44 mL). General information ??? Avoid eating more than 2,300 mg of salt a day. If you have hypertension, you may need to reduce your sodium intake to 1,500 mg a day. ??? Work with your provider to stay at a healthy body weight or lose weight. Ask what the best weight range is for you. ??? On most days of the week, get at least 30 minutes of exercise that causes your heart to beat faster. This may include walking, swimming, or biking. ??? Work with your provider or dietitian to adjust your eating plan to meet your specific calorie needs. What foods should I eat? Fruits All fresh, dried, or frozen fruit. Canned fruits that are in their natural juice and do not have sugar added to them. Vegetables Fresh or frozen vegetables that are raw, steamed, roasted, or grilled. Low- sodium or reduced-sodium tomato and vegetable juice. Low-sodium or reduced-sodium tomato sauce and tomato paste. Low-sodium or reduced-sodium canned vegetables. Grains Whole-grain or whole-wheat bread. Whole-grain or whole-wheat pasta. Brown rice. Oatmeal. Quinoa. Bulgur. Whole-grain and low-sodium cereals. Magdalena bread. Low- fat, low-sodium crackers. Whole-wheat flour tortillas. Meats and other proteins Skinless chicken or turkey. Ground chicken or turkey. Pork with fat trimmed off. Fish and seafood. Egg whites. Dried beans, peas, or lentils. Unsalted nuts, nut butters, and seeds. Unsalted canned beans. Lean cuts of beef with fat trimmed off. Low- sodium, lean precooked or cured meat, such as sausages or meat loaves. Dairy Low-fat (1%) or fat-free (skim) milk. Reduced-fat, low-fat, or fat-free cheeses. Nonfat, low-sodium ricotta or cottage cheese. Low-fat or nonfat yogurt. Low-fat, low-sodium cheese. Fats and oils Soft margarine without trans fats. Vegetable oil. Reduced-fat, low-fat, or light mayonnaise and salad dressings (reduced-sodium). Canola, safflower, olive, avocado, soybean, and sunflower oils. Avocado. Seasonings and condiments Herbs. Spices. Seasoning mixes without salt. Other foods Unsalted popcorn and pretzels. Fat-free sweets. The items listed above may not be all the foods and drinks you can have. Talk to a dietitian to learn more. What foods should I avoid? Fruits Canned fruit in a light or heavy syrup. Fried fruit. Fruit in cream or butter sauce. Vegetables Creamed or fried vegetables. Vegetables in a cheese sauce. Regular canned vegetables that are not marked as low-sodium or reduced-sodium. Regular canned tomato sauce and paste that are not marked as low-sodium or reduced-sodium. Regular tomato and vegetable juices that are not marked as low-sodium or reduced-sodium. Pickles. Olives. Grains Baked goods made with fat, such as croissants, muffins, or some breads. Dry pasta or rice meal packs. Meats and other proteins Fatty cuts of meat. Ribs. Fried meat. Pascal. Bologna, salami, and other precooked or cured meats, such as sausages or meat loaves, that are not lean and low in sodium. Fat from the back of a pig (fatback). Bratwurst. Salted nuts and seeds. Canned beans with added salt. Canned or smoked fish. Whole eggs or egg yolks. Chicken or turkey with skin. Dairy Whole or 2% milk, cream, and [id number]. Whole or full-fat cream cheese. Whole-fat or sweetened yogurt. Full-fat cheese. Nondairy creamers. Whipped toppings. Processed cheese and cheese spreads. Fats and oils Butter. Stick margarine. Lard. Shortening. Ghee. Pascal fat. Tropical oils, such as coconut, palm kernel, or palm oil. Seasonings and condiments Onion salt, garlic salt, seasoned salt, table salt, and sea salt. Worcestershire sauce. Tartar sauce. Barbecue sauce. Teriyaki sauce. Soy sauce, including reduced-sodium soy sauce. Steak sauce. Canned and packaged gravies. Fish sauce. Oyster sauce. Cocktail sauce. Store-bought horseradish. Ketchup. Mustard. Meat flavorings and tenderizers. Bouillon cubes. Hot sauces. Pre-made or packaged marinades. Pre-made or packaged taco seasonings. Relishes. Regular salad dressings. Other foods Salted popcorn and pretzels. The items listed above may not be all the foods and drinks you should avoid. Talk to a dietitian to learn more. Where to find more information ??? National Heart, Lung, and Blood [place] (NHLBI): nhlbi.nih.gov ??? [place] Heart Association (AHA): heart.org ??? Academy of Nutrition and Dietetics: eatright.org ??? National Kidney Foundation (NKF): kidney.org This information is not intended to replace advice given to you by your health care provider. Make sure you discuss any questions you have with your health care provider. Document Revised: 05/14/2023 Document Reviewed: 05/14/2023 [employer] Patient Education ??? 2023 [employer] Chronic Kidney Disease, Adult Chronic kidney disease is when lasting damage happens to the kidneys slowly over a long time. The kidneys help to: ??? Make pee (urine). ??? Make hormones. ??? Keep the right amount of fluids and chemicals in the body. Most often, this disease does not go away. You must take steps to help keep the kidney damage from getting worse. If steps are not taken, the kidneys might stop working forever. What are the causes? Diabetes. ??? High blood pressure. ??? Diseases that affect the heart and blood vessels. ??? Other kidney diseases. ??? Diseases of the body's disease-fighting system. ??? A problem with the flow of pee. ??? Infections of the organs that make pee, store it, and take it out of the body. ??? Swelling or irritation of your blood vessels. What increases the risk? Getting older. ??? Having someone in your family who has kidney disease or kidney failure. ??? Having a disease caused by genes. ??? Taking medicines often that harm the kidneys. ??? Being near or having contact with harmful substances. ??? Being very overweight. ??? Using tobacco now or in the past. What are the signs or symptoms? Feeling very tired. ??? Having a swollen face, legs, ankles, or feet. ??? Feeling like you may vomit or vomiting. ??? Not feeling hungry. ??? Being confused or not able to focus. ??? Twitches and cramps in the leg muscles or other muscles. ??? Dry, itchy skin. ??? A taste of metal in your mouth. ??? Making less pee, or making more pee. ??? Shortness of breath. ??? Trouble sleeping. You may also become anemic or get weak bones. Anemic means there is not enough red blood cells or hemoglobin in your blood. You may get symptoms slowly. You may not notice them until the kidney damage gets very bad. How is this treated? Often, there is no cure for this disease. Treatment can help with symptoms and help keep the disease from getting worse. You may need to: ??? Avoid alcohol. ??? Avoid foods that are high in salt, potassium, phosphorous, and protein. ??? Take medicines for symptoms and to help control other conditions. ??? Have dialysis. This treatment gets harmful waste out of your body. ??? Treat other problems that cause your kidney disease or make it worse. Follow these instructions at home: Medicines ??? Take exlx-qot-fimaewa and prescription medicines only as told by your doctor. ??? Do not take any new medicines, vitamins, or supplements unless your doctor says it is okay. Lifestyle ??? Do not smoke or use any products that contain nicotine or tobacco. If you need help quitting, ask your doctor. ??? If you drink alcohol: ? Limit how much you use to: ? 0???1 drink a day for women who are not . ? 0???2 drinks a day for men. ? Know how much alcohol is in your drink. In the [place] one drink equals one 12 oz bottle of beer (355 mL), one 5 oz glass of wine (148 mL), or one 1??? oz glass of hard liquor (44 mL). ??? Stay at a healthy weight. If you need help losing weight, ask your doctor. General instructions ??? Follow instructions from your doctor about what you cannot eat or drink. ??? Track your blood pressure at home. Tell your doctor about any changes. ??? If you have diabetes, track your blood sugar. ??? Exercise at least 30 minutes a day, 5 days a week. ??? Keep your shots (vaccinations) up to date. ??? Keep all follow-up visits. Where to find more information ??? [place] Association of Kidney Patients: www.aakp.org ??? National Kidney Foundation: www.kidney.org ??? [place] Kidney Fund: www.akfinc.org ??? Life Options: www.lifeoptions.org ??? Kidney School: www.kidneyschool.org Contact a doctor if: ??? Your symptoms get worse. ??? You get new symptoms. Get help right away if: ??? You get symptoms of end-stage kidney disease. These include: ? Headaches. ? Losing feeling in your hands or feet. ? Easy bruising. ? Having hiccups often. ? Chest pain. ? Shortness of breath. ? Lack of menstrual periods, in women. ??? You have a fever. ??? You make less pee than normal. ??? You have pain or you bleed when you pee or poop. These symptoms may be an emergency. Get help right away. Call your local emergency services (911 in the [place] ??? Do not wait to see if the symptoms will go away. ??? Do not drive yourself to the hospital. Summary ??? Chronic kidney disease is when lasting damage happens to the kidneys slowly over a long time. ??? Causes of this disease include diabetes and high blood pressure. ??? Often, there is no cure for this disease. Treatment can help symptoms and help keep the disease from getting worse. ??? Treatment may involve lifestyle changes, medicines, and dialysis. This information is not intended to replace advice given to you by your health care provider. Make sure you discuss any questions you have with your health care provider. Document Revised: 08/01/2020 Document Reviewed: 08/01/2020 [employer] Patient Education ??? 2023 [employer] Patient Portal You may access all of your results and other medical record information on our secure patient portal. If you are not signed up for this yet, please contact [employer] at [phone] to get signed up today. Language Information Language assistance services are available as needed. FAMILY MEDICINE OFFICE/CLINI C NOTE Observed: 01/25/2025 7:56 AM Status: F Source: [facility] Family Medicine Office/Clini c Note Chief Complaint Initial Medicare Wellness Review of Systems PHQ Score Initial Depression Screen Score: 2 SCORE Physical Exam Vitals & Measurements HR: 62(Peripheral) RR: 18 BP: 128/84 HT: 62 in HT: 158 cm WT: 214.73 lb WT: 97.4 kg BMI: 39.02 Procedure I was in the office and available for consultation and to provide direct supervision at the time of this visit. I have provided supervision of the care team and have reviewed this chart and office note and agree with the plan of care. Assessment/Plan 1. Encounter for Medicare annual examination with abnormal findings (Z00.01: Encounter for general adult medical examination with abnormal findings) The patient was given a customized and personalized print out of all the current AHRQ USPSTF???s recommendations for preventative services and all current CDC recommended immunizations, relevant risk recommendations and the following patient brochures were given. Reviewed Medicare Prevention Services checklist. [facility] [place] Prevention and home safety screening reviewed. Patient reports 2 non injury falls in last 12 months, voices no worry about falling. Exhibits no problems with sitting, standing or ambulation. Patient aware with keeping walk way area free of clutter to prevent tripping and/or falling. Patient reports needing some assistance with ADL???s and Instrumental ADL???s, such as cleaning due to pain. Patient's daughter comes to the house to help with cleaning. Cognitive screening completed with memory and clock face drawing. Patient briana correct face, but misunderstood the time to john. Patient did recite 3/3 memory words correctly. Immunization record reviewed, discussed Shingrix vaccine with educational handout and availability. 2 COVID vaccines have been administered, with 4 Boosters received. Allergies and medications reviewed and up to date. No concerns with taking medication as prescribed. Reviewed OTC medications, medication list up to date. Blood tests were reviewed: UTD. No concerns with bowel/ bladder. Colonoscopy last completed 01/11/2025, due for repeat 5 years. Last DEXA Scan 12/14/2024, repeat 2 years. Reviewed pain symptoms: rates generalized pain as a 3/10. Patient follows pain management and takes medication as directed. Reviewed all outside providers that patient follows. Last visit summary notes available in chart and/or have been requested. Follow up scheduled with PCP, 03/30/2025 AWV has been scheduled, Abnormal findings with positive depression screening. See #7. Medicare provides yearly screening for alcohol and depression concerns. This is completed during our Medicare Wellness Visit for those who do not have a current diagnosis of depression or concerns with alcohol use. I spent a total of 12 minutes on this date of service which included preparing to see the patient, face to face patient care, completing clinical documentation, obtaining and/or reviewing separately obtained history, counseling, and educating the patient with handouts. Explanations were provided with reviewing questionnaires. AUDIT risk assessment screening completed, risk score 0 with patient denying concerns with use. Completed PHQ-2 risk assessment for depression with risk score 2, negative findings. Patient has been reminded to notify the provider if there would be a change or concerns with symptoms with fear, unable to sleep, worrying too much, or feeling down and/or sad with lost of interest with daily activities. Will continue to monitor with screening yearly during Medicare Wellness Visits. 2. Chronic diastolic congestive heart failure (I50.32: Chronic diastolic (congestive) heart failure) Patient does not monitor daily weight. Patient to report to the office or cardiology if a 4 lb. or more weight gain in 1-2 days. No complaints of SOB while resting or ambulating. Pulse ox today was 96%. Patient to follow up with PCP and cardiology as directed. 3. Chronic kidney disease, stage 3a (N18.31: Chronic kidney disease, stage 3a) Reviewed health kidney nutritional handout with importance of preventing strain on the kidneys. Monitor sodium intake daily, educational handout reviewed and provided to assist the patient with a better understanding which types of food, including frozen foods, canned food and fast foods. Work towards a dietary intake with low potassium foods and limit protein intake. Reminded importance to avoid NSAID use and monitor for swelling in the body. Patient encouraged to monitor BP with importance of keeping under control with repeated blood work to be ordered as directed with PCP. 4. Chronic obstructive pulmonary disease (J44.9: Chronic obstructive pulmonary disease, unspecified) Encouraged to remain active, reviewed Pulmonary nutritional recommendations handout during visit. Will continue to monitor for changes and/or concerns with office visits. Pulse ox today was 96%. 5. Hypertensive heart and kidney disease with heart failure (I13.0: Hypertensive heart and chronic kidney disease with heart failure and stage 1 through stage 4 chronic kidney disease, or unspecified chronic kidney disease) Patient is compliant with following up with Cardiology as directed. 6. Thyroid cancer (C73: Malignant neoplasm of thyroid gland) Patient denies any concerns. See #10. 7. Depression (F32.A: Depression, unspecified) Patient taking doxepin and sertraline daily, voices medication is effective. Follows up with PCP with medication management and symptom control. PHQ-9 risk assessment completed with positive findings. Total risk score is 10. Patient denies any suicidal ideations at this time. Reviewed additional signs/symptoms to monitor for and report to provider. Patient informed depression screening is positive, but reports again that she feels that medication is effective and that she is having some health issues that may be affecting the screening. 8. Hyperlipidemia (E78.5: Hyperlipidemia, unspecified) Reviewed healthy lifestyle with low fat diet and exercise regimen. When you are overweight our body produces more lipids. Risk also increases with family history of hyperlipidemia and with monitoring alcohol use and avoid smoking. Pt voices understanding with importance of monitoring dietary intake to reduce risk factors associated with CVA. Taking Vascepa and atorvastatin medication daily as directed. Will continue to follow up with office visits with updated labs as directed. 9. Hypertension (I10: Essential (primary) hypertension) Patient is taking medications daily as directed. Does monitor BP pressure at home. HTN stoplight reviewed with BP goal to be <140/90. Reviewed different factors that can alter blood pressure readings. Education handout provided with s/s to monitor for and report to provider. Patient is encouraged to increase portions of fruit, vegetables, fiber and increase exercise as much as tolerable. Reviewed importance with monitoring foods high in salt content and encouraged to limit intake, if unsure encouraged to discuss with their PCP. Encouraged to eat more chicken, fish and lean white meats and limits red meats in diet. Discussed importance with keeping BP under good control to reduce CVA risk factors. Will continue to f/u with PCP and cardiology during office visits and as needed. 10. Hypothyroid (E03.9: Hypothyroidism, unspecified) Patient taking Levothyroxine daily as directed, taking in am on an empty stomach and 30 minutes before eating or taking other medications. Denies concerns with cold intolerance, or change in appetite, constipation, slow growing hair or hair thinning. Follows up with PCP during office visits with blood work and medication management. 11. Breast cancer screening by mammogram (Z12.31: Encounter for screening mammogram for malignant neoplasm of breast) Recommended mammogram screening discussed with patient during today's Medicare Wellness visit. Patient reminded with the importance of continued Breast Self-Awareness at home. Easy to read demonstration on how to perform a self breast exam: What to look for and feel for was reviewed and provided to patient. Mammogram ordered and faxed to [facility] to be scheduled. Pt has been advised no deodorant, sprays or lotions. 12. Advanced directives, counseling/discussion (Z71.89: Other specified counseling) Spent 17 minutes with patient. An explanation of [employer]ING for end of life reviewed. Discussion included handout Planning for Important Health Care Decisions with explanations regarding different decisions to discuss with their chosen representatives. Explained the role each sales representative printing paper would play, encouraged patient to select 2 people with one being the primary and the other for an altenate. Discussed importance of reviewing forms with family so that they are aware of decisions. This would be the time to implement plans to ensure specific wishes are honored and if there would be questions from the family these could be discussed for a better understanding. Patient does voice understandng that these forms would be effective if the patient is unable to speak, types of medical care and desired comfort level that is preferred to improve care at the end of life . Reminded patient the these forms may be revoked at any time and in any manner. Patient would like to take home and discuss with family before completing. Reminded patient upon completion to bring copy into the office and we will scan them into their medical chart. Once scanned into medical chart, forms are returned to patient and reminded to give a copy to selected representatives. ID card provided for patient to fill out with their name as well as their representatives information. Check off which forms they have in place and where they have it on file. [place] [employer]or Registry also is included in packet: Reviewed with patient if they are and/or if they are not an organ donor they can complete this form and mail to the [place] [employer] [facility] [employer] (address is included) to have on file. Keep copy in wallet and discussed benefit with having another copy kept with medications in case 911 would ever be called, this would be needed information to provide if patient is to be transferred to a hospital for further evaluation. 13. Obesity due to excess calories (E66.09: Other obesity due to excess calories) The standard range for ages 18 and older is >=18.5 and < 25 kg/m2. Your BMI (39.02) today was above this range, this obesity category and there are medical benefits to weight loss. BMI monitoring is helpful with identifying a weight problem that may be related to a medical condition, or may increase the risk for medical problems. Your BMI and weight management will be followed at subsequent visits with your provider and monitored for progress. GOAL: promoting healthier lifestyle with diet changes in order to reach a healthy weight. Follow-up No qualifying data available Patient Education Heart Attack, [id number] Managing Depression, Adult Fall Prevention in the Home, Adult, Anyw-th-Vedw DASH Eating Plan Chronic Kidney Disease, Adult, [id number] Problem List/Past Medical History Ongoing Altered bowel habits Arthritis BMI 39.0-39.9,adult C. difficile diarrhea Cellulitis of leg Chronic diastolic congestive heart failure Chronic kidney disease, stage 3a Chronic obstructive pulmonary disease Depression Former smoker Glaucoma H/O hematuria Heart disease Hx of basal cell carcinoma Hx of thyroid cancer Hyperlipidemia Hypertension Hypertensive heart and kidney disease with heart failure Hypothyroid Incontinence Iron deficiency anemia Kidney stones Long-term current use of opiate analgesic drug Nonsmoker Obesity (BMI 30-39.9) Renal mass S/P cholecystectomy SK (seborrheic keratosis) Skin cancer Sleep apnea Smoker SOB (shortness of breath) Thyroid cancer Historical Anxiety Arthritis Carpal tunnel Hypotension Liver disease Microscopic hematuria Osteopenia Thyroid cancer Trigeminal neuralgia of left side of face Procedure/Surgical History Colonoscopy (01/11/2025), Radiofrequency ablation of nerve root of lumbar spine using fluoroscopic guidance (05/02/2024), Skin cancer (02/04/2024), Glaucoma drainage surgery (01/04/2024), Injection of facet joint using fluoroscopic guidance (09/02/2023), Injection of facet joint using fluoroscopic guidance (07/15/2023), Epidural injection of lumbar spine using fluoroscopic guidance (01/21/2023), Epidural injection of lumbar spine using fluoroscopic [...] fluoroscopic guidance (11/21/2015), Appendectomy, Arthroplasty of knee, Cancer of skin, Cataract, Cholecystectomy, Colonoscopy, Glaucoma surgery, Hysterectomy, Injection of nerve root of lumbar spine using fluoroscopic guidance, Thyroidectomy. Medications aspirin 81 mg Oral EC Tab, 81 mg= 1 tab(s), Oral, Daily atorvastatin 40 mg Tab biotin, 1 tab(s), Oral, BID bisoprolol 10 mg Tab, 10 mg= 1 tab(s), Oral, Daily calcium-vitamin D extended release, 2 tab(s), Oral, qAM Colace 100 mg Cap, 100 mg= 1 cap(s), Oral, BID, PRN doxepin 10 mg Cap, 10 mg= 1 cap(s), Oral, Daily furosemide 40 mg Tab, See Instructions Glucosamine Chondroitin oral capsule, 1 cap, Oral, BID isosorbide mononitrate 120 mg ER Tab, 120 mg= 1 tab(s), Oral, qAM Klor Con 10 mEq Cap-ER, 1 tab, Oral, BID, 4 refills latanoprost Opth 0.005% Ginette, 1 drop(s), OPTH, Once a day (at bedtime) nitroglycerin 0.4 mg sublingual Tab, 0.4 mg= 1 tab(s), SubLingual, q5min, PRN [place] 325 mg-5 mg oral tablet, 1 tab(s), Oral, BID, PRN omeprazole, 20 mg, Oral, Daily pregabalin 150 mg Cap primidone 50 mg Tab, 50 mg= 1 tab(s), Oral, Once a day (at bedtime) ranolazine 1000 mg oral tablet, extended release, 1000 mg= 1 tab(s), Oral, BID sertraline 100 mg Tab, 100 mg= 1 tab(s), Oral, Daily, 1 refills Synthroid 125 mcg (0.125 mg) Tab, 125 mcg, Oral, Daily, 1 refills tiZANidine 4 mg Tab, 8 mg= 2 tab(s), Oral, Bedtime Vascepa 1 g oral capsule, 2 gm= 2 cap(s), Oral, BID Allergies amoxicillin (Hives) Social History Alcohol - Denies Alcohol Use, 06/10/2022 Substance Abuse - Denies Substance Abuse, 10/25/2015 Tobacco - Denies Tobacco Use, 10/31/2021 4 or less cigarettes(less than 1/4 pack)/day in last 30 days Tobacco Use:. Never Smokeless Tobacco Use:. Cigarettes, Household tobacco concerns: No. Yes, 01/25/2025 Family History Arthritis: Mother. Congenital heart disease: Negative: Mother. Heart failure: Mother. Hyperlipidemia: Mother. Hypertension: Mother. Primary malignant neoplasm of female genital organ: Mother. Immunizations Vaccine Date Status influenza virus vaccine, inactivated 03/02/2024 Recorded influenza virus vaccine, inactivated 03/03/2023 Recorded SARS-CoV-2 (COVID-19) [id number] 04/17/2022 Recorded influenza virus vaccine, inactivated 02/15/2022 Recorded SARS-CoV-2 (COVID-19) mRNA BNT-162b2 vax 05/15/2021 Recorded influenza virus vaccine, inactivated 04/27/2021 Recorded SARS-CoV-2 (COVID-19) mRNA BNT-162b2 vax 08/07/2020 Recorded SARS-CoV-2 (COVID-19) mRNA BNT-162b2 vax 07/16/2020 Recorded SARS-CoV-2 (COVID-19) mRNA BNT-162b2 vax 07/2020 Recorded SARS-CoV-2 (COVID-19) mRNA BNT-162b2 vax 06/2020 Recorded pneumococcal 23-valent vaccine 02/26/2019 Recorded influenza virus vaccine, inactivated 02/26/2019 Recorded influenza virus vaccine, inactivated 02/21/2019 Recorded pneumococcal 23-valent vaccine 02/17/2018 Recorded pneumococcal 13-valent vaccine 02/09/2018 Recorded influenza virus vaccine, inactivated 02/09/2018 Recorded influenza virus vaccine, inactivated 02/08/2017 Recorded influenza virus vaccine, inactivated 03/12/2015 Recorded influenza virus vaccine, inactivated 03/23/2014 Recorded pneumococcal 23-valent vaccine 03/10/2003 Recorded Result Comment: Electronical ly Signed By: JORDEN BERRIOS CNP\.br\Date and Time Signed: 01/25/25 10:42 EDT\.br\Electronically Co-Signed By: Josefina Zuniga\.br\Date and Time Co-Signed: 01/25/25 09:48 EDT AMBULATORY VISIT SUMMARY Observed: 01/25 7:39 AM Status: F Source: [facility] Ambulatory Visit Summary DIANN LINDER :1950 Visit Date:01/25/2025 Ambulatory Visit Instructions Your Diagnosis Encounter for pre-operative examination Calculus of kidney BMI 39.0-39.9,adult Nonsmoker Obesity (BMI 30-39.9) Your Care Team Attending Physician - JORDEN BERRIOS CNP Primary Care Physician - JORDEN BERRIOS CNP This Is Your Medications List pregabalin (pregabalin 150 mg Cap) Contact prescribing physician if questions or concerns acetaminophen-hydrocodone ([place] 325 mg-5 mg oral tablet) ascorbic acid/chondroitin/glucosa/jayson (Glucosamine Chondroitin oral capsule) aspirin (aspirin 81 mg Oral EC Tab) atorvastatin (atorvastatin 40 mg Tab) biotin bisoprolol (bisoprolol 10 mg Tab) calcium-vitamin D (calcium-vitamin D extended release) docusate (Colace 100 mg Cap) doxepin (doxepin 10 mg Cap) furosemide (furosemide 40 mg Tab) icosapent (Vascepa 1 g oral capsule) isosorbide mononitrate (isosorbide mononitrate 120 mg ER Tab) latanoprost ophthalmic (latanoprost Opth 0.005% Ginette) levothyroxine (Synthroid 125 mcg (0.125 mg) Tab) nitroglycerin (nitroglycerin 0.4 mg sublingual Tab) omeprazole potassium chloride (Klor Con 10 mEq Cap-ER) primidone (primidone 50 mg Tab) ranolazine (ranolazine 1000 mg oral tablet, extended release) sertraline (sertraline 100 mg Tab) tizanidine (tiZANidine 4 mg Tab) Procedures Performed Colonoscopy (01/11/2025), Radiofrequency ablation of nerve root of lumbar spine using fluoroscopic guidance (05/02/2024), Skin cancer (02/04/2024), Glaucoma drainage surgery (01/04/2024), Injection of facet joint using fluoroscopic guidance (09/02/2023), Injection of facet joint using fluoroscopic guidance (07/15/2023), Epidural injection of lumbar spine using fluoroscopic guidance (01/21/2023), Epidural injection of lumbar spine using fluoroscopic [...] fluoroscopic guidance (11/21/2015), Appendectomy, Arthroplasty of knee, Cancer of skin, Cataract, Cholecystectomy, Colonoscopy, Glaucoma surgery, Hysterectomy, Injection of nerve root of lumbar spine using fluoroscopic guidance, Thyroidectomy. Discharge Vitals Temperature (Oral) 36.8 ???C Heart Rate (Peripheral) 62 Respiratory Rate 18 Blood Pressure 128/84 Height 158 cm Height 62 in Weight 97.4 kg Weight 214.73 lb BMI 39.02 What to do next Scheduled Follow-Up Appointments 2024 1:20 PM EST With: JORDEN BERRIOS CNP Where: [address] [id number]- [id number] 1:00 PM EDT With: Where: [address] [address]- Medications What How Much When Why Instructions Unchanged pregabalin (pregabalin 150 mg Cap) Unchanged acetaminophen-hydrocodone ([place] 325 mg-5 mg oral tablet) 1 Tablets By Mouth 2 times a day as needed for as needed for pain Back pain, chronic Contact prescribing physician if questions or concerns Unchanged ascorbic acid/ chondroitin/ glucosa/ jayson (Glucosamine Chondroitin oral capsule) 1 cap By Mouth 2 times a day Contact prescribing physician if questions or concerns Unchanged aspirin (aspirin 81 mg Oral EC Tab) 1 Tablets By Mouth Every day Contact prescribing physician if questions or concerns Unchanged atorvastatin (atorvastatin 40 mg Tab) Contact prescribing physician if questions or concerns Unchanged biotin 1 Tablets By Mouth 2 times a day Contact prescribing physician if questions or concerns Unchanged bisoprolol (bisoprolol 10 mg Tab) 1 Tablets By Mouth Every day Contact prescribing physician if questions or concerns Unchanged calcium-vitamin D (calcium-vitamin D extended release) 2 Tablets By Mouth Once a day (in the morning) Contact prescribing physician if questions or concerns Unchanged docusate (Colace 100 mg Cap) 1 Capsules By Mouth 2 times a day as needed for for constipation Contact prescribing physician if questions or concerns Unchanged doxepin (doxepin 10 mg Cap) 1 Capsules By Mouth Every day Contact prescribing physician if questions or concerns Unchanged furosemide (furosemide 40 mg Tab) See instructions Takes 20mg every other day and then 40mg on the other days Contact prescribing physician if questions or concerns Unchanged icosapent (Vascepa 1 g oral capsule) 2 Capsules By Mouth 2 times a day Contact prescribing physician if questions or concerns Unchanged isosorbide mononitrate (isosorbide mononitrate 120 mg ER Tab) 1 Tablets By Mouth Once a day (in the morning) Contact prescribing physician if questions or concerns Unchanged latanoprost ophthalmic (latanoprost Opth 0.005% Ginette) 1 Drops Ophthalmic Once a day (at bedtime) Contact prescribing physician if questions or concerns Unchanged levothyroxine (Synthroid 125 mcg (0.125 mg) Tab) 125 Microgram By Mouth Every day Contact prescribing physician if questions or concerns Unchanged nitroglycerin (nitroglycerin 0.4 mg sublingual Tab) 1 Tablets Sublingual Every 5 minutes as needed for for chest pain Contact prescribing physician if questions or concerns Unchanged omeprazole 20 Milligram By Mouth Every day Contact prescribing physician if questions or concerns Unchanged potassium chloride (Klor Con 10 mEq Cap-ER) 1 tab By Mouth 2 times a day Contact prescribing physician if questions or concerns Unchanged primidone (primidone 50 mg Tab) 1 Tablets By Mouth Once a day (at bedtime) Contact prescribing physician if questions or concerns Unchanged ranolazine (ranolazine 1000 mg oral tablet, extended release) 1 Tablets By Mouth 2 times a day TAKE 1 TABLET BY MOUTH TWO TIMES A DAY Contact prescribing physician if questions or concerns Unchanged sertraline (sertraline 100 mg Tab) 1 Tablets By Mouth Every day UTI (urinary tract infection) Depression Former smoker Obesity (BMI 30-39.9) Contact prescribing physician if questions or concerns Unchanged tizanidine (tiZANidine 4 mg Tab) 2 Tablets By Mouth At bedtime Contact prescribing physician if questions or concerns Allergies amoxicillin (Hives) Problems Ongoing - Any problem that you are currently receiving treatment for. Altered bowel habits Arthritis BMI 39.0-39.9,adult C. difficile diarrhea Cellulitis of leg Chronic diastolic congestive heart failure Chronic kidney disease, stage 3a Chronic obstructive pulmonary disease Depression Former smoker Glaucoma H/O hematuria Heart disease Hx of basal cell carcinoma Hx of thyroid cancer Hyperlipidemia Hypertension Hypertensive heart and kidney disease with heart failure Hypothyroid Incontinence Iron deficiency anemia Kidney stones Long-term current use of opiate analgesic drug Nonsmoker Obesity (BMI 30-39.9) Renal mass S/P cholecystectomy SK (seborrheic keratosis) Skin cancer Sleep apnea Smoker SOB (shortness of breath) Thyroid cancer Historical - Any problem that you are no longer receiving treatment for. Anxiety Arthritis Carpal tunnel Hypotension Liver disease Microscopic hematuria Osteopenia Thyroid cancer Trigeminal neuralgia of left side of face Patient Survey You may receive a survey via text or e-mail asking about your office visit. Please share your experience with us by completing your survey. We appreciate your feedback and thank you for choosing us for your care. Education Materials Kidney Stones Kidney stones are rock-like masses that form inside of the kidneys. Kidneys are organs that make pee (urine). A kidney stone may move into other parts of the urinary tract, including: ??? The tubes that connect the kidneys to the bladder (ureters). ??? The bladder. ??? The tube that carries urine out of the body (urethra). Kidney stones can cause very bad pain and can block the flow of pee. The stone usually leaves your body through your pee. A doctor may need to take out the stone. What are the causes? Kidney stones may be caused by: ??? Too much calcium in the body. This may be caused by too much parathyroid hormone in the blood. ??? Uric acid crystals in the bladder. The body makes uric acid when you eat certain foods. ??? Narrowing of one or both of the ureters. ??? A kidney blockage that you were born with. ??? Past surgery on the kidney or the ureters. What increases the risk? You are more likely to develop this condition if: ??? You have had a kidney stone in the past. ??? Other people in your family have had kidney stones. ??? You do not drink enough water. ??? You eat a diet that is high in protein, salt (sodium), or sugar. ??? You are very overweight (obese). What are the signs or symptoms? Symptoms of a kidney stone may include: ??? Pain in the side of the belly, right below the ribs. Pain usually spreads to the groin. ??? Needing to pee often or right away. ??? Pain when peeing. ??? Blood in your pee. ??? Feeling like you may vomit (nauseous). ??? Vomiting. ??? Fever and chills. How is this treated? Treatment depends on the size, location, and makeup of the kidney stones. The stones will often pass out of the body when you pee. You may need to: ??? Drink more fluid to help pass the stone. ? In some cases, you may be given fluids through an IV tube at the hospital. ??? Take medicine for pain. ??? Change your diet to help keep kidney stones from coming back. Sometimes, you may need: ??? A procedure to break up kidney stones using a beam of light (laser) or shock waves. ??? Surgery to remove the kidney stones. Follow these instructions at home: Medicines ??? Take ijex-iro-lststll and prescription medicines only as told by your doctor. ??? Ask your doctor if the medicine prescribed to you requires you to avoid driving or using machinery. Eating and drinking ??? Drink enough fluid to keep your pee pale yellow. ? You may be told to drink at least 8???10 glasses of water each day. This will help you pass the stone. ??? If told by your doctor, change your diet. You may be told to: ? Limit how much salt you eat. ? Eat more fruits and vegetables. ? Limit how much meat, poultry, fish, and eggs you eat. ??? Follow instructions from your doctor about what you may eat and drink. General instructions ??? Collect pee samples as told by your doctor. You may need to collect a pee sample: ? 24 hours after a stone comes out. ? 8???12 weeks after a stone comes out, and every 6???12 months after that. ??? Strain your pee every time you pee. Use the strainer that your doctor recommends. ??? Do not throw out the stone. Keep it so that it can be tested by your doctor. ??? Keep all follow-up visits. You may need X-rays and ultrasounds to make sure the stone has come out. How is this prevented? To prevent another kidney stone: ??? Drink enough fluid to keep your pee pale yellow. This is the best way to prevent kidney stones. ??? Eat healthy foods. ??? Avoid certain foods as told by your doctor. You may be told to eat less protein. ??? Stay at a healthy weight. Where to find more information ??? National Kidney Foundation (NKF): kidney.org ??? [employer] (UCF): urologyhealth.org Contact a doctor if: ??? You have pain that gets worse or does not get better with medicine. Get help right away if: ??? You have a fever or chills. ??? You get very bad pain. ??? You get new pain in your belly. ??? You faint. ??? You cannot pee. This information is not intended to replace advice given to you by your health care provider. Make sure you discuss any questions you have with your health care provider. Document Revised: 12/19/2022 Document Reviewed: 12/19/2022 [employer] Report Patient Education ??? 2023 [employer]. Patient Portal You may access all of your results and other medical record information on our secure patient portal. If you are not signed up for this yet, please contact [employer] at [phone] to get signed up today. Language Information Language assistance services are available as needed. FAMILY MEDICINE OFFICE/CLINI C NOTE Observed: 01/25/2025 7:39 AM Status: F Source: [facility] Family Medicine Office/Clini c Note Chief Complaint Surgical Clearance The patient presents for surgical clearance for kidney stone removal. [facility] Staff Pt presents today for surgical clearance. Is scheduled for kidney stone removal through [facility]. Last labs completed through [facility] for surgery. As well as EKG. Does take ASA 81mg daily. Does see [facility]. Last consult in chart from 08/31/24. (Notes EKG does 01/04/20-NSR) Pt states she has already been surgically cleared through cardio. History of Present Illness 74-year-old female presenting with a need for surgical clearance for kidney stone removal. The patient has been diagnosed with kidney stones, with one stone present in each kidney, both approximately the size of an egg. The surgical plan involves direct intervention rather than lithotripsy due to the size of the stones. The patient has undergone pre-operative testing, including blood work, urine analysis, and an EKG, at [facility]. She has received clearance from cardiology without a direct consultation, as documentation was sent over. Review of Systems PHQ Score Initial Depression Screen Score: 0 SCORE - Musculoskeletal: Reports difficulty with finger dexterity, uses compression gloves for relief. Physical Exam Vitals & Measurements T: 36.8 ???C(Oral) HR: 62(Peripheral) RR: 18 BP: 128/84 SpO2: 96% HT: 158 cm HT: 62 in WT: 97.4 kg WT: 214.73 lb BMI: 39.02 General: alert, no acute distress Skin: warm, dry Head: no trauma, normocephalic Neck: Trachea midline, no adenopathy, no tenderness Eye: normal conjunctiva, sclera clear Cardiovascular: regular rate and rhythm, normal peripheral perfusion Respiratory: Lungs CTA, respirations non labored Extremities: no deformity, no trauma Neurological: oriented x 4, LOC appropriate for agespeech normal Assessment/Plan 1. Encounter for pre-operative examination (Z01.818: Encounter for other preprocedural examination) - Ensure all necessary pre-operative tests are completed and results are communicated to the surgical team. - Patient reports she has been cleared by cardiology and by the surgeons office -There is no laboratory testing or EKG for the the PCP to review -If patient has been cleared by cardiology and the surgeon then asked her primary she is cleared for surgery as well Ordered: Complex E&M Add on G2 2. Calculus of kidney (N20.0) - Proceed with surgical intervention as planned due to the size of the stones. - Patient is scheduled for surgery on February 02, 2025 Ordered: Complex E&M Add on G2 3. BMI 39.0-39.9,adult (Z68.39: Body mass index [BMI] 39.0-39.9, adult) - BMI 39.02 - Monitor weight and encourage lifestyle modifications to manage obesity. Ordered: Complex E&M Add on G2 4. Nonsmoker (Z78.9: Other specified health status) - Continue to maintain nonsmoking status. Ordered: Complex E&M Add on G2 5. Obesity (BMI 30-39.9) (E66.9: Obesity, unspecified) The standard range for ages 18 and older is >=18.5 and < 25 kg/m2. Your BMI today was above this range, this falls in the overweight to obese category and there are medical benefits to weight loss. We can offer counselling, referral, and/or medical support in addressing this problem. Your BMI and weight management will be followed at subsequent visits. Ordered: Complex E&M Add on Follow-up No qualifying data available Patient Education Kidney Stones, [id number] Problem List/Past Medical History Ongoing Altered bowel habits Arthritis BMI 39.0-39.9,adult C. difficile diarrhea Cellulitis of leg Chronic diastolic congestive heart failure Chronic kidney disease, stage 3a Chronic obstructive pulmonary disease Depression Former smoker Glaucoma H/O hematuria Heart disease Hx of basal cell carcinoma Hx of thyroid cancer Hyperlipidemia Hypertension Hypertensive heart and kidney disease with heart failure Hypothyroid Incontinence Iron deficiency anemia Kidney stones Long-term current use of opiate analgesic drug Nonsmoker Obesity (BMI 30-39.9) Renal mass S/P cholecystectomy SK (seborrheic keratosis) Skin cancer Sleep apnea Smoker SOB (shortness of breath) Thyroid cancer Historical Anxiety Arthritis Carpal tunnel Hypotension Liver disease Microscopic hematuria Osteopenia Thyroid cancer Trigeminal neuralgia of left side of face Procedure/Surgical History Colonoscopy (01/11/2025), Radiofrequency ablation of nerve root of lumbar spine using fluoroscopic guidance (05/02/2024), Skin cancer (02/04/2024), Glaucoma drainage surgery (01/04/2024), Injection of facet joint using fluoroscopic guidance (09/02/2023), Injection of facet joint using fluoroscopic guidance (07/15/2023), Epidural injection of lumbar spine using fluoroscopic guidance (01/21/2023), Epidural injection of lumbar spine using fluoroscopic [...] fluoroscopic guidance (11/21/2015), Appendectomy, Arthroplasty of knee, Cancer of skin, Cataract, Cholecystectomy, Colonoscopy, Glaucoma surgery, Hysterectomy, Injection of nerve root of lumbar spine using fluoroscopic guidance, Thyroidectomy. Medications aspirin 81 mg Oral EC Tab, 81 mg= 1 tab(s), Oral, Daily atorvastatin 40 mg Tab biotin, 1 tab(s), Oral, BID bisoprolol 10 mg Tab, 10 mg= 1 tab(s), Oral, Daily calcium-vitamin D extended release, 2 tab(s), Oral, qAM Colace 100 mg Cap, 100 mg= 1 cap(s), Oral, BID, PRN dorzolamide-timolol Opth 2%-0.5% Ginette, 1 drop(s), Eye-Both, BID doxepin 10 mg Cap, 10 mg= 1 cap(s), Oral, Daily furosemide 40 mg Tab, See Instructions Glucosamine Chondroitin oral capsule, 1 cap, Oral, BID High Potency Probiotic oral capsule, 1 cap, Oral, Daily isosorbide mononitrate 120 mg ER Tab, 120 mg= 1 tab(s), Oral, qAM Klor Con 10 mEq Cap-ER, 1 tab, Oral, BID, 4 refills latanoprost Opth 0.005% Ginette, 1 drop(s), OPTH, Once a day (at bedtime) nitroglycerin 0.4 mg sublingual Tab, 0.4 mg= 1 tab(s), SubLingual, q5min, PRN [place] 325 mg-5 mg oral tablet, 1 tab(s), Oral, BID, PRN omeprazole, 20 mg, Oral, Daily primidone 50 mg Tab, 50 mg= 1 tab(s), Oral, Once a day (at bedtime) ranolazine 1000 mg oral tablet, extended release, 1000 mg= 1 tab(s), Oral, BID sertraline 100 mg Tab, 100 mg= 1 tab(s), Oral, Daily, 1 refills Synthroid 125 mcg (0.125 mg) Tab, 125 mcg, Oral, Daily, 1 refills tiZANidine 4 mg Tab, 8 mg= 2 tab(s), Oral, Bedtime Vascepa 1 g oral capsule, 2 gm= 2 cap(s), Oral, BID Allergies amoxicillin (Hives) Social History Alcohol - Denies Alcohol Use, 06/10/2022 Substance Abuse - Denies Substance Abuse, 10/25/2015 Tobacco - Denies Tobacco Use, 10/31/2021 4 or less cigarettes(less than 1/4 pack)/day in last 30 days Tobacco Use:. Never Smokeless Tobacco Use:. Cigarettes, Household tobacco concerns: No. Yes, 01/25/2025 Family History Arthritis: Mother. Congenital heart disease: Negative: Mother. Heart failure: Mother. Hyperlipidemia: Mother. Hypertension: Mother. Primary malignant neoplasm of female genital organ: Mother. Immunizations Vaccine Date Status influenza virus vaccine, inactivated 03/02/2024 Recorded influenza virus vaccine, inactivated 03/03/2023 Recorded SARS-CoV-2 (COVID-19) mRNAMUL.ORD![id number] 04/17/2022 Recorded influenza virus vaccine, inactivated 02/15/2022 Recorded SARS-CoV-2 (COVID-19) mRNA BNT-162b2 vax 05/15/2021 Recorded influenza virus vaccine, inactivated 04/27/2021 Recorded SARS-CoV-2 (COVID-19) mRNA BNT-162b2 vax 08/07/2020 Recorded SARS-CoV-2 (COVID-19) mRNA BNT-162b2 vax 07/16/2020 Recorded SARS-CoV-2 (COVID-19) mRNA BNT-162b2 vax 07/2020 Recorded SARS-CoV-2 (COVID-19) mRNA BNT-162b2 vax 06/2020 Recorded pneumococcal 23-valent vaccine 02/26/2019 Recorded influenza virus vaccine, inactivated 02/26/2019 Recorded influenza virus vaccine, inactivated 02/21/2019 Recorded pneumococcal 23-valent vaccine 02/17/2018 Recorded pneumococcal 13-valent vaccine 02/09/2018 Recorded influenza virus vaccine, inactivated 02/09/2018 Recorded influenza virus vaccine, inactivated 02/08/2017 Recorded influenza virus vaccine, inactivated 03/12/2015 Recorded influenza virus vaccine, inactivated 03/23/2014 Recorded pneumococcal 23-valent vaccine 03/10/2003 Recorded Result Comment: Electronical ly Signed By: JORDEN BERRIOS CNP\litzy\Date and Time Signed: 01/25/25 08:19 EDT RESULT LETTER OFFICE Observed: 5 1:15 PM Status: F Source: [facility] Result Letter Office January 24, 2025 [address]S [address] [place] [phone] : 1950 Below is a summary of the results of your recent colonoscopy. COLONOSCOPY WITH POLYP REMOVAL OR BIOPSY Type of polyp tubular adenoma - not cancer but can become cancer if not removed. Additional colonoscopies will be necessary to monitor your condition and assure that new polyps have not developed. Based on your results we are recommending you repeat the procedure in 5 years You will be placed in our reminder system and will receive a reminder letter prior to your next due date. Please contact the office with any further questions or concerns or if you wish to make an appointment. [facility] [phone] REMINDERS Observed: 01/24/2025 1:13 PM Status: F Source: [facility] Reminders From: Radha Banks To: [facility] - Reminders/Recalls; Sent: 01/24/2025 13:13:46 EDT Show up: 12/11/2029 13:13:00 EDT Subject: Ambulatory Reminder- colonoscopy 5 years Due Date/Time: 01/11/2030 13:13:00 EDT Reminder/Recall Colonoscopy 01/11/25 Dr Toledo 5 year recall LAB Observed: 01/24/2025 10:10 AM Status: COMPLETED Source: [facility] [id number] Diann Linder [birth year] F Date Provider Department Center 01/24/2025 2245-[facility] LAB RESOURCE [facility] [place] Medical C Family History Problem Relation Age of Onset Heart failure Mother Family Status - Relation Status Age at Mother URINE CULTURE, ROUTINE Collected: 01/24 10:04 AM Status: UNK Source: [facility] TYPE CODE TESTS RESULT OUT OF RANGE REFERENCE UNITS LAB [id number] URINE CULTURE 50,000 - 100,000 CFU/ML Uro-Genital Courtney Performed By: #### [id number] ## ## [facility] ([facility]) [address] [place] [address] CBC Collected: 10:04 AM Status: UNK Source: [facility] Order Comment: Preadmission Testing TYPE CODE TESTS RESULT OUT OF RANGE REFERENCE UNITS LAB [id number] LEUKOCYTES(10*3/ UL) IN BLOOD BY AUTOMATED COUNT 6.26 4.00-10.60 10*3/uL LAB [id number] ERYTHROCYTES (10*6/UL) IN BLOOD BY AUTOMATED COUNT 3.87 3.80-5.00 10*6/uL LAB [id number] HEMOGLOBIN (G/DL) IN BLOOD 12.0 12.0-15.0 g/dL LAB [id number] HEMATOCRIT (%) IN BLOOD BY AUTOMATED COUNT 37.1 36.0-45.0 % LAB [id number] ERYTHROCYTE MEAN CORPUSCULAR VOLUME (FL) BY AUTOMATED COUNT 95.9 82.0-98.0 fL LAB [id number] ERYTHROCYTE MEAN CORPUSCULAR HEMOGLOBIN (PG) BY AUTOMATED COUNT 31.0 27.0-33.0 pg LAB [id number] ERYTHROCYTE MEAN CORPUSCULAR HEMOGLOBIN CONCENTRATION (G/DL) BY AUTOMATED 32.3 32.0-35.0 g/dL LAB [id number] ERYTHROCYTE DISTRIBUTION WIDTH (RATIO) BY AUTOMATED COUNT 13.1 11.5-15.0 % LAB [id number] PLATELETS (10*3/UL) IN BLOOD AUTOMATED COUNT 214 150-400 10*3/uL Performed By: #### [id number] ## ## [facility] LAB (BEAKER) [address] [place] [address] COMPREHENSIVE METABOLIC PANEL Collected: 01/24/2025 1 0:04 AM Status: UNK Source: [facility] Order Comment: Preadmission Testing TYPE CODE TESTS RESULT OUT OF RANGE REFERENCE UNITS LAB [id number] SODIUM (MMOL/L) IN SER/PLAS 142 136-145 mmol/L LAB [id number] POTASSIUM (MMOL/ L) IN SER/PLAS 4.2 3.5-5.1 mmol/L LAB [id number] CHLORIDE (MMOL/L ) IN SER/PLAS 104 98-107 mmol/L LAB [id number] CARBON DIOXIDE, TOTAL (MMOL/L) IN SER/PLAS 30 21-31 mmol/L LAB [id number] ANION GAP IN SER/PLAS 12 7-20 mmol/L LAB [id number] UREA NITROGEN (MG/DL) IN SER/PLAS 21 7-25 mg/dL LAB [id number] CREATININE (MG/D L) IN SER/PLAS 1.21 High 0.60-1.20 mg/dL LAB [id number] UREA NITROGEN/CREATININ E (MASS RATIO) IN SER/PLAS 17.4 NA LAB [id number] GLUCOSE (MG/DL) IN SER/PLAS 138 High 70-100 mg/dL LAB [id number] CALCIUM (MG/DL) IN SER/PLAS 9.8 8.6-10.3 mg/dL LAB [id number] ASPARTATE AMINOTRANSFERASE (SGOT) (U/L) IN SER/PLAS 12 Low 13-39 U/L LAB [id number] ALANINE AMINOTRANSFERASE (SGPT) (U/L) IN SER/PLAS 7 7-52 U/L LAB [id number] ALKALINE PHOSPHATASE (U/L) IN SER/PLAS 87 34-104 U/L LAB [id number] PROTEIN (G/DL) I N SER/PLAS 6.6 6.0-8.3 g/dL LAB [id number] ALBUMIN (G/DL) I N SER/PLAS 4.2 3.5-5.7 g/dL LAB [id number] BILIRUBIN TOTAL (MG/DL) IN SER/PLAS 0.6 0.3-1.0 mg/dL LAB [id number] GLOMERULAR FILTRATION RATE ML/MIN/1.73 SQ M.PREDICTED 47.0 Low >60.0 mL/min /1.73m *2 Result Comment: [facility]???s estimated glomerular filtration rate (eGFR) will no longer include consideration of race in its calculation. The National Kidney Foundation???s eGFR Task Force developed new recommendations for the estimation of the glomerular filtration rate in the [place] They recommend immediate implementation of the new equation refit without the race variable in all laboratories because the calculation does not include race. In addition to not including race in the calculation and reporting, it included diversity in its development, and has acceptable performance characteristics and potential consequences that do not disproportionately affect any one group of individuals. Performed By: #### [id number] ### # [facility] LAB (BEAKER) [address] [place] [address] PROGRESS NOTE-PHYSICIAN Observed: 2024 2:01 PM Status: F Source: [facility] Progress Note-Physician Patient: DIANN LINDER Age: 74 years Sex: Female : 1950 Associated Diagnoses: None Author: John Marcial MD Postoperative Information Postoperative disposition: Postoperative disposition: To PACU. Optimetrix number: Optimetrix number [id number]. Anesthetic utilized: General. Health Status Allergies: Allergic Reactions (Selected) Severity Not Documented Amoxicillin- Hives. Physical Examination Vital Signs 01/11/2025 10:10 EDT Heart Rate Monitored 56 bpm LOW Respiratory Rate Monitored 19 br/min SpO2 97 % 01/11/2025 10:10 EDT Systolic Blood Pressure 161 mmHg HI Diastolic Blood Pressure 82 mmHg Mean Arterial Pressure, Cuff 108 mmHg Pain Assessment: Controlled. General: Awake, Appropriate. Respiratory: Adequate air exchange. Cardiovascular: Stable. Neurological Assessment Anesthetic outcome No anesthetic complications noted. Adequate pain relief. no nausea. Review / Management Condition: Stable. Plan Transfer/Discharge: Transfer/Discharge Discharge when meets criteria. Result Comment: Electronical ly Signed By: Aniket SOMMERS, John Grant\.br\Date and Time Signed: 01/11/25 14:02 EDT PATIENT EDUCATION - TEXT Observed: 01/11 10:02 AM Status: C Source: [facility] Patient Education - Text Colonoscopy Care After Surgery Please read the instructions outlined below and refer to this sheet in the next few weeks. These discharge instructions provide you with general information on caring for yourself after you leave the hospital. Your doctor may also give you specific instructions. While your treatment has been planned according to the most current medical practices available, unavoidable complications occasionally occur. If you have any problems or questions after discharge, please call your doctor. ACTIVITY You may resume your regular activity, but move at a slower pace for the next 24 hours. Take frequent rest periods for the next 24 hours. Walking will help get rid of the air and reduce the bloated feeling in your abdomen (belly). No driving for 24 hours (because of the anesthesia (medicine) used during the test). You may shower. Do not sign any important legal documents or operate any machinery for 24 hours (because of the anesthesia used during the test). NUTRITION Drink plenty of fluids. You may resume your normal diet as instructed by your doctor. Begin with a light meal and progress to your normal diet. Heavy or fried foods are harder to digest and may make you feel nauseated (sick to your stomach). Avoid alcoholic beverages for 24 hours or as instructed. MEDICATIONS You may resume your normal medications unless your doctor tells you otherwise. WHAT YOU CAN EXPECT TODAY Some feelings of bloating in the abdomen. Passage of more gas than usual. Spotting of blood in your stool or on the toilet paper. FOLLOW-UP Your doctor will discuss the results of your test with you. SEEK IMMEDIATE MEDICAL ATTENTION IF: There is more than a spotting of blood in your stool. There is abdominal distention (your abdomen is swollen). There is vomiting. You have a temperature over 101.5 F. There is abdominal pain or discomfort that is severe or gets worse throughout the day. Diverticulosis Many people have small pouches in their colon called diverticulum. The diverticulum bulge outward through weak spots in the colon. You could have one or more of these pouches in the colon. The condition of having these pouches in the colon is called diverticulosis or diverticular disease. Diverticulosis is usually diagnosed by tests to evaluate something else. For example, you may have had a colonoscopy to screen for colon cancer when the diverticulosis was found. Most people with diverticulosis do not have any discomfort or problems. If symptoms develop, they may include mild cramps, bloating, and constipation. A complication of this condition is called diverticulitis. This is when the diverticulum become inflamed and infected. How to treat diverticulosis: Increasing the amount of fiber in the diet may reduce symptoms of diverticulosis and prevent complications such as diverticulitis (infected diverticuli). Fiber keeps stool soft and lowers pressure inside the colon so that bowel contents can move through easily. You should eat 20 to 35 grams of fiber each day. The table below shows the amount of fiber in some foods that you can easily add to your diet. Adding fiber slowly may decrease the bloating and fullness sometimes felt with an immediate high fiber diet. The doctor may also recommend taking a fiber product such as Citrucel or Metamucil once a day. In the past people with diverticulosis were to avoid nuts, corn, and seeds. This has not been found to be true. If you find that certain foods create cramping or bloating, avoid that food. Foods high in fiber include: Fresh fruits, fresh vegetables, legumes (beans), whole wheat bread, bran muffins or cereal, and nuts. See the table below for examples of high fiber foods. Remember, your goal is 20- 35 grams per day. Amount of fiber in different foods Food Serving Grams of fiber Fruits Apple (with skin) 1 medium apple 4.4 Banana 1 medium banana 3.1 Oranges 1 orange 3.1 Prunes 1 cup, pitted 12.4 Juices Apple, unsweetened, w/added ascorbic acid 1 cup 0.5 Grapefruit, white, canned, sweetened 1 cup 0.2 Grape, unsweetened, w/added ascorbic acid 1 cup 0.5 Screven 1 cup 0.7 Vegetables Cooked Green beans 1 cup 4.0 Carrots 1/2 cup sliced 2.3 Peas 1 cup 8.8 Potato (baked, with skin) 1 medium potato 3.8 Raw [place] (with peel) 1 cucumber 1.5 Lettuce 1 cup shredded 0.5 Tomato 1 medium tomato 1.5 Spinach 1 cup 0.7 Legumes Baked beans, canned, no salt added 1 cup 13.9 Kidney beans, canned 1 cup 13.6 Lee beans, canned 1 cup 11.6 Lentils, boiled 1 cup 15.6 Breads, pastas, flours Bran muffins 1 medium muffin 5.2 Oatmeal, cooked 1 cup 4.0 White bread 1 slice 0.6 Whole-wheat bread 1 slice 1.9 Pasta and rice, cooked Macaroni 1 cup 2.5 Rice, brown 1 cup 3.5 Rice, white 1 cup 0.6 Spaghetti (regular) 1 cup 2.5 Nuts Almonds 1/2 cup 8.7 Peanuts 1/2 cup 7.9 Chart from [facility] 2013. SEEK IMMEDIATE MEDICAL CARE IF: You develop abdominal (belly) pain. An oral temperature above _ 101??? F__develops. Repeated vomiting occurs. Blood is being passed in stools (bright red or black tarry stools). You develop any bowel problems or changes which you have not had before. Extra Information: To learn how much fiber and other nutrients are in different foods, visit the [place] Department of Agriculture (USDA) National Nutrient Database at: http://www.nal.usda.gov/fnic/foodcomp/search/ Created using data from the USDA National Nutrient Database for Standard Reference. Available at http://www.nal.usda.gov/fnic/foodcomp/search/. Information adapted from: ExitCare??? Patient Information ???2009 [employer] 2013 http://www.[employer]/contents/fxajsjhfqtlt-afnacmz-alylzp-the-basics Gastroenterology Hemorrhoids Hemorrhoids are swollen veins in and around the rectum or the opening of the butt (anus). There are two types of hemorrhoids: ??? Internal. These occur in the veins just inside the rectum. They may poke through to the outside and become irritated and painful. ??? External. These occur in the veins outside the anus. They can be felt as a painful swelling or hard lump near the anus. Most hemorrhoids do not cause severe problems. Often, they can be treated at home with diet and lifestyle changes. If home treatments do not help, you may need a procedure to shrink or remove the hemorrhoids. What are the causes? Hemorrhoids are caused by pressure near the anus. This pressure may be caused by: ??? Constipation or diarrhea. ??? Straining to poop. ??? . ??? Obesity. ??? Sitting or riding a bike for a long time. ??? Heavy lifting or other things that cause you to strain. ??? Anal sex. What are the signs or symptoms? Symptoms of this condition include: ??? Pain. ??? Anal itching or irritation. ??? Bleeding from the rectum. ??? Leakage of poop (stool). ??? Swelling of the anus. ??? One or more lumps around the anus. How is this diagnosed? Hemorrhoids can often be diagnosed through a visual exam. Other exams or tests may also be done, such as: ??? A digital rectal exam. This is when your health care provider feels inside your rectum with a gloved finger. ??? Anoscope. This is an exam of the anus using a small tube. ??? A blood test, if you have lost a lot of blood. ??? A sigmoidoscopy or colonoscopy. These are tests to look inside the colon using a tube with a camera on the end. How is this treated? In most cases, hemorrhoids can be treated at home with diet and lifestyle changes. If these changes do not help, you may need to have a procedure done. These procedures can make the hemorrhoids smaller or fully remove them. Common procedures include: ??? Rubber band ligation. Rubber bands are placed at the base of the hemorrhoids to cut off their blood supply. ??? Sclerotherapy. Medicine is put into the hemorrhoids to shrink them. ??? Infrared coagulation. A type of light energy is used to get rid of the hemorrhoids. ??? Hemorrhoidectomy surgery. The hemorrhoids are removed during surgery. Then, the veins that supply them are tied off. ??? Stapled hemorrhoidopexy surgery. The base of the hemorrhoid is stapled to the wall of the rectum. Follow these instructions at home: Medicines ??? Take lntd-siq-mvqiefu and prescription medicines only as told by your provider. ??? Use medicated creams or medicines that are put in the rectum (suppositories) as told by your provider. Eating and drinking ??? Eat foods that are high in fiber, such as beans, whole grains, and fresh fruits and vegetables. ??? Ask your provider about taking products that have fiber added to them (fiber supplements). ??? Reduce the amount of fat in your diet. You can do this by eating low-fat dairy products, eating less red meat, and avoiding processed foods. ??? Drink enough fluid to keep your pee (urine) pale yellow. Managing pain and swelling ??? Take warm sitz baths for 20 minutes, 3?4 times a day. This can help ease pain and discomfort. You may do this in a bathtub or you can use a portable sitz bath that fits over the toilet. ??? If told, put ice on the affected area. It may help to use ice packs between sitz baths. ? Put ice in a plastic bag. ? Place a towel between your skin and the bag. ? Leave the ice on for 20 minutes, 2?3 times a day. ??? If your skin turns bright red, remove the ice right away to prevent skin damage. The risk of damage is higher if you cannot feel pain, heat, or cold. General instructions ??? Exercise. Ask your provider how much and what kind of exercise is best for you. In general, you should do moderate exercise for at least 30 minutes on most days of the week (150 minutes each week). You may want to try walking, biking, or yoga. ??? Go to the bathroom when you have the urge to poop. Do not wait. ??? Avoid straining to poop. ??? Keep the anus dry and clean. Use wet toilet paper or moist towelettes after you poop. ??? Do not sit on the toilet for a long time. This can increase blood pooling and pain. Where to find more information ??? National [place] of Diabetes and Digestive and Kidney Diseases: niddk.nih.gov Contact a health care provider if: ??? You have more pain and swelling that do not get better with treatment. ??? You have trouble pooping or you are not able to poop. ??? You have pain or inflammation outside the area of the hemorrhoids. Get help right away if: ??? You are bleeding from your rectum and you cannot get it to stop. This information is not intended to replace advice given to you by your health care provider. Make sure you discuss any questions you have with your health care provider. Document Revised: 01/07/2023 Document Reviewed: 01/07/2023 [employer] Patient Education ? 2023 [employer]Oncology Colon Polyps Colon polyps are tissue growths inside the colon, which is part of the large intestine. They are one of the types of polyps that can grow in the body. A polyp may be a round bump or a mushroom-shaped growth. You could have one polyp or more than one. Most colon polyps are noncancerous (benign). However, some colon polyps can become cancerous over time. Finding and removing the polyps early can help prevent this. What are the causes? The exact cause of colon polyps is not known. What increases the risk? The following factors may make you more likely to develop this condition: ??? Having a family history of colorectal cancer or colon polyps. ??? Being older than 45 years of age. ??? Being younger than 45 years of age and having a significant family history of colorectal cancer or colon polyps or a genetic condition that puts you at higher risk of getting colon polyps. ??? Having inflammatory bowel disease, such as ulcerative colitis or Crohn's disease. ??? Having certain conditions passed from parent to child (hereditary conditions), such as: ? Familial adenomatous polyposis (FAP). ? Burns syndrome. ? Turcot syndrome. ? Peutz?Jeghers syndrome. ? MUTYH-associated polyposis (MAP). ??? Being overweight. ??? Certain lifestyle factors. These include smoking cigarettes, drinking too much alcohol, not getting enough exercise, and eating a diet that is high in fat and red meat and low in fiber. ??? Having had childhood cancer that was treated with radiation of the abdomen. What are the signs or symptoms? Many times, there are no symptoms. If you have symptoms, they may include: ??? Blood coming from the rectum during a bowel movement. ??? Blood in the stool (feces). The blood may be bright red or very dark in color. ??? Pain in the abdomen. ??? A change in bowel habits, such as constipation or diarrhea. How is this diagnosed? This condition is diagnosed with a colonoscopy. This is a procedure in which a lighted, flexible scope is inserted into the opening between the buttocks (anus) and then passed into the colon to examine the area. Polyps are sometimes found when a colonoscopy is done as part of routine cancer screening tests. How is this treated? This condition is treated by removing any polyps that are found. Most polyps can be removed during a colonoscopy. Those polyps will then be tested for cancer. Additional treatment may be needed depending on the results of testing. Follow these instructions at home: Eating and drinking ??? Eat foods that are high in fiber, such as fruits, vegetables, and whole grains. ??? Eat foods that are high in calcium and vitamin D, such as milk, cheese, yogurt, eggs, liver, fish, and broccoli. ??? Limit foods that are high in fat, such as fried foods and desserts. ??? Limit the amount of red meat, precooked or cured meat, or other processed meat that you eat, such as hot dogs, sausages, pascal, or meat loaves. ??? Limit sugary drinks. Lifestyle ??? Maintain a healthy weight, or lose weight if recommended by your health care provider. ??? Exercise every day or as told by your health care provider. ??? Do not use any products that contain nicotine or tobacco, such as cigarettes, e-cigarettes, and chewing tobacco. If you need help quitting, ask your health care provider. ??? Do not drink alcohol if: ? Your health care provider tells you not to drink. ? You are , may be , or are planning to become . ??? If you drink alcohol: ? Limit how much you use to: ? 0?1 drink a day for women. ? 0?2 drinks a day for men. ? Know how much alcohol is in your drink. In the [place] one drink equals one 12 oz bottle of beer (355 mL), one 5 oz glass of wine (148 mL), or one 1? oz glass of hard liquor (44 mL). General instructions ??? Take qrxq-swo-vphkrji and prescription medicines only as told by your health care provider. ??? Keep all follow-up visits. This is important. This includes having regularly scheduled colonoscopies. Talk to your health care provider about when you need a colonoscopy. Contact a health care provider if: ??? You have new or worsening bleeding during a bowel movement. ??? You have new or increased blood in your stool. ??? You have a change in bowel habits. ??? You lose weight for no known reason. Summary ??? Colon polyps are tissue growths inside the colon, which is part of the large intestine. They are one type of polyp that can grow in the body. ??? Most colon polyps are noncancerous (benign), but some can become cancerous over time. ??? This condition is diagnosed with a colonoscopy. ??? This condition is treated by removing any polyps that are found. Most polyps can be removed during a colonoscopy. This information is not intended to replace advice given to you by your health care provider. Make sure you discuss any questions you have with your health care provider. Document Revised: 08/15/2020 Document Reviewed: 08/15/2020 Else[employer] Patient Education ? 2023 [employer] MAIN OR PREOPERATIVE RECORD Observed: 10:00 AM Status: F Source: [facility] Main OR Preoperative Record Holding Area Document Type FT Summary Primary Physician: Tre SOMMERS, Blake Rivero Finalized Date/Time: 01/11/25 09:12:50 Pt. Name: DIANN LINDER/Mikayla: 1950 Female Med Rec #: [id number] Physician: Blake Toledo MD Financial #: [id number] Pt. Type: O Room/Bed: / Admit/Disch: 01/11/25 08:48:11 - Institution: Case Times Holding FT Pre-Care Text: Verifies consent for planned procedure, identifies individual values and wishes concerning care, includes family members in perioperative teaching Secures patient's records' belongings, and valuables, maintains patient's dignity and privacy, and maintains patient confidentiality Entry 1 In Holding 01/11/25 09:01:00 Outcomes Met? Yes Last Modified By: Alexandro Fitzgerald RN 01/11/25 09:10:53 Post-Care Text: The patient participates in decisions affecting his or her perioperative plan of care The patient's right to privacy is maintained Surgery Checklist FT Entry 1 Patient Birthday, ID Band Procedure History and Physical, Identification: Check, Patient Verification: Surgical Consent, With Participation Patient NPO after Midnight: No Date/Time: 01/11/25 06:05:00 Personal Items: Cataract Lens Implant, Personal Items metal in neck, bilat Glasses Comment: knee replacements Limitations: none Complaints of Pain: No Pain Comment: denies Operative Site n/a Marking: Availability Equipment Verified: Does Patient Smoke Yes If Yes to Smoking. 1 cigarette daily Cigars or Cigarettes. How much per day? Patient states Yes Comment - Adult Karen postop adult Supervision supervision available Case Cancelled in No Holding Area see comments below for reason Last Modified By: Alexandro Fitzgerald RN 01/11/25 09:12:46 General Comments: PT. NPO since bowel prep finished at 0605/AW RN Finalized By: Alexandro Fitzgerald RN Document Signatures Signed By: Alexandro Fitzgerald RN 01/11/25 09:12 OPERATIVE REPORT Observed: 01/11/2025 9:47 AM Status: F Source: [facility] Operative Report Patient: DIANN LINDER Age: 74 years Sex: Female : 1950 Associated Diagnoses: None Author: Blake Toledo MD Pre-Procedure Procedure Date 01/11/2025 09:48:00 . Procedure Type: Colonoscopy with removal of tumor(s), polyp(s), or other lesion(s) by snare technique, biopsy. Procedure provider Performed by Blake Toledo MD. Current history and physical Documented on chart. Radiofrequency ablation of nerve root of lumbar spine using fluoroscopic guidance ([id number]) on 05/02/2024 at 74 Years. Comments: 06/03/2024 14:02 Antoinette Wood RN Covering L4-S1 facet joints Skin cancer, Basel cell removal ([id number]) on 02/04/2024 at 74 Years. Comments: 04/05/2024 13:33 Denisse Jovel RN Left shoulder blade Glaucoma drainage surgery ([id number]) on 01/04/2024 at 73 Years. Bilateral L3-5 Medial Branch Blocks ([id number]) on 09/02/2023 at 73 Years. Comments: 09/16/2023 14:42 Antoinette Cortes RN 85% relief for 4 hrs Injection of facet joint using fluoroscopic guidance ([id number]) on 07/15/2023 at 73 Years. Comments: 07/23/2023 15:02 Denisse Garcia RN 80% relief for 2 hours 07/23/2023 13:49 Ericka Duke RN bilateral L4-S1 50% relief Epidural injection of lumbar spine using fluoroscopic guidance ([id number]) on 01/21/2023 at 72 Years. Comments: 02/12/2023 12:36 Ericka Duke RN L5-S1 30% relief Epidural injection of lumbar spine using fluoroscopic guidance ([id number]) on 04/30/2022 at 72 Years. Comments: 06/02/2022 12:54 Denisse Jovel RN L5/S1-50% relief ESWL - Extracorporeal shockwave lithotripsy for renal calculus ([id number]) on 11/07/2021 at 71 Years. ALINA L5/S1 ([id number]) on 10/23/2021 at 71 Years. Comments: 11/21/2021 15:36 Katelynn Meng RN L5/S1 60% relief Cystoscope ([id number]) on 04/29/2021 at 71 Years. Bilateral L3-L5 RFA ([id number]) on 04/10/2021 at 71 Years. Comments: 05/31/2021 12:43 SENA Kaplan RN, Katelynn L3-L5 20% relief Injection of nerve root of lumbar spine using fluoroscopic guidance ([id number]) on 05/16/2020 at 70 Years. Comments: 06/07/2020 9:51 SENA Fay RN, Ericka Chagn Bilatateral L5- 20% relief Radiofrequency ablation of medial branch of lumbar nerve using fluoroscopic guidance ([id number]) on 01/25/2020 at 69 Years. Comments: 02/23/2020 11:08 EDT - Tristan [employer] Statistical Financial Analyst., Charline B/L S1-S3 RFA 35% relief Injection of sacroiliac joint using fluoroscopic guidance ([id number]) on 11/30/2019 at 69 Years. Comments: 12/29/2019 11:39 EDT - Tristan [employer] Financial Analyst., Charline B/L SIJI right 20% left 20% Radiofrequency ablation of medial branch of lumbar nerve using fluoroscopic guidance ([id number]) on 10/05/2019 at 69 Years. Comments: 11/09/2019 13:45 EDT - Tristan [employer] Financial [employer]st., Charline B/L L3-L4 RFA 80% relief that continues Laminectomy ([id number]) on 06/28/2019 at 69 Years. Comments: 06/28/2019 17:28 Sherlyn Medina RN CERVICAL FUSION POSTERIOR, C3-T1 Injection of sacroiliac joint using fluoroscopic guidance ([id number]) on 04/27/2019 at 69 Years. Comments: 05/26/2019 14:44 EST - Dolores RMA, Xuan L B/L 60% to present Radiofrequency ablation of medial branch of lumbar nerve using fluoroscopic guidance ([id number]) on 03/16/2019 at 69 Years. Comments: 04/14/2019 13:03 EST - Day RMA, Xuan L B/L L3-S1 55% relief Injection of sacroiliac joint using fluoroscopic guidance ([id number]) on 01/19/2019 at 68 Years. Comments: 02/10/2019 13:02 Denisse Garcia RN B/L 75% relief Partial substernal thyroidectomy ([id number]) on 12/09/2018 at 68 Years. Comments: 12/09/2018 15:02 JULISA Berrios RN, BSN, Malena R right Injection of sacroiliac joint using fluoroscopic guidance ([id number]) on 08/04/2018 at 68 Years. Comments: 08/26/2018 13:19 Kayla Hagan RN 65% relief to present Arthroplasty of knee ([id number]) on 06/01/2018 at 68 Years. Comments: 06/01/2018 12:33 Sherlyn Medina RN RIGHT Injection of sacroiliac joint using fluoroscopic guidance ([id number]) on 01/06/2018 at 67 Years. Comments: 02/04/2018 13:17 Mariangel Lemus RN bilateral SJI 65% relief Radiofrequency ablation of medial branch of lumbar nerve using fluoroscopic guidance ([id number]) on 09/16/2017 at 67 Years. Comments: 10/21/2017 11:23 Kayla Hagan RN bilat L2-L5 MB RFA- 50% relief at time of OV Injection of sacroiliac joint using fluoroscopic guidance ([id number]) on 08/05/2017 at 67 Years. Comments: 09/03/2017 13:27 Rachna Calle RN b/l reallly no change in back pain approx 100 %relief on right buttock pain approx 70 % relief left buttock pain Total knee arthroplasty b/l ([id number]) on 06/08/2017 at 67 Years. Comments: 06/08/2017 14:20 Sherlyn Camarena RN Left. 06/08/2017 14:20 Sherlyn Camarena RN KNEE TOTAL ARTHROPLASTY sacroiliac joint injection on 04/01/2017 at 67 Years. Comments: 04/30/2017 13:39 Teena Arteaga RN B/L 40% relief Gel shots in left knee on 12/09/2016 at 66 Years. Comments: 02/05/2017 13:14 EDT - Ciro Senior Firmware Engineer., Rigo Nugent 3 times 0% relief Radiofrequency ablation of medial branch of lumbar nerve using fluoroscopic guidance ([id number]) on 11/12/2016 at 66 Years. Comments: 12/08/2016 13:21 JULISA Thurston RN, Rachna Right L2-L5 30 % relief after 2 weeks Radiofrequency ablation of medial branch of lumbar nerve using fluoroscopic guidance ([id number]) on 10/29/2016 at 66 Years. Comments: 12/08/2016 13:21 JULISA Thurston RN, Rachna left 30 % relief immediate Injection of facet joint using fluoroscopic guidance ([id number]) on 09/17/2016 at 66 Years. Comments: 10/09/2016 15:43 Denisse Garcia RN 70% relief for 2 hours still has 305 relief 10/09/2016 15:33 Denisse Garcia RN B/Jenny L3-S1 Injection into facet joint of lumbar spine using fluoroscopic guidance ([id number]) on 06/04/2016 at 66 Years. Comments: 06/26/2016 14:22 Asmita Momin RN B/Jenny L3-S1 70% relief to present Injection of sacroiliac joint using fluoroscopic guidance ([id number]) on 02/27/2016 at 66 Years. Comments: 03/27/2016 14:24 Deinsse Jovel RN 60% relief for 4 days 03/27/2016 14:16 Denisse Jovel RN B/L Injection of sacroiliac joint using fluoroscopic guidance ([id number]) on 11/21/2015 at 65 Years. Comments: 12/13/2015 10:15 Mariangel Lemus RN bilateral 60% relief andd still working Hysterectomy ([id number]). Cholecystectomy (18109772). Appendectomy (889450004). Thyroidectomy (82668618). Injection of nerve root of lumbar spine using fluoroscopic guidance ([id number]). Comments: 04/26/2020 8:46 Ericka Horton RN bilateal L4- 40% relief Arthroplasty of knee ([id number]). Skin cancer removal (5862644108). Comments: 02/05/2024 10:00 Charline Guaman 2023 Glaucoma surgery ([id number]). Comments: 02/05/2024 10:01 Charline Guaman 2023 Cataract ([id number]). Colonoscopy ([id number]). Comments: 01/02/2025 13:38 JANUARYT - Radha Banks around 5 years ago. Past Medical History Active Thyroid cancer (777758632) Resolved Arthritis (8915448): Resolved. Anxiety (87570776): Resolved. Trigeminal neuralgia of left side of face (82433443): Resolved. Osteopenia (460147646): Resolved. Hypotension (48964890): Resolved. Thyroid cancer (0233863935): Resolved. Carpal tunnel (403524299): Resolved. Liver disease (861938533): Resolved. Microscopic hematuria (845998571): Resolved.. Family History Hypertension Mother Primary malignant neoplasm of female genital organ Mother Heart failure Mother Arthritis Mother Hyperlipidemia Mother . Procedure History Radiofrequency ablation of nerve root of lumbar spine using fluoroscopic guidance ([id number]) on 05/02/2024 at 74 Years. Comments: 06/03/2024 14:02 Antoinette Wood RN Covering L4-S1 facet joints Skin cancer, Basel cell removal ([id number]) on 02/04/2024 at 74 Years. Comments: 04/05/2024 13:33 Denisse Jovel RN Left shoulder blade Glaucoma drainage surgery ([id number]) on 01/04/2024 at 73 Years. Bilateral L3-5 Medial Branch Blocks ([id number]) on 09/02/2023 at 73 Years. Comments: 09/16/2023 14:42 Antoinette Cortes RN 85% relief for 4 hrs Injection of facet joint using fluoroscopic guidance ([id number]) on 07/15/2023 at 73 Years. Comments: 07/23/2023 15:02 Denisse Garcia RN 80% relief for 2 hours 07/23/2023 13:49 Ericka Duke RN bilateral L4-S1 50% relief Epidural injection of lumbar spine using fluoroscopic guidance ([id number]) on 01/21/2023 at 72 Years. Comments: 02/12/2023 12:36 Ericka Duke RN L5-S1 30% relief Epidural injection of lumbar spine using fluoroscopic guidance ([id number]) on 04/30/2022 at 72 Years. Comments: 06/02/2022 12:54 Denisse Jovel RN L5/S1-50% relief ESWL - Extracorporeal shockwave lithotripsy for renal calculus ([id number]) on 11/07/2021 at 71 Years. ALINA L5/S1 ([id number]) on 10/23/2021 at 71 Years. Comments: 11/21/2021 15:36 Katelynn Meng RN L5/S1 60% relief Cystoscope ([id number]) on 04/29/2021 at 71 Years. Bilateral L3-L5 RFA ([id number]) on 04/10/2021 at 71 Years. Comments: 05/31/2021 12:43 Katelynn Moscoso RN L3-L5 20% relief Injection of nerve root of lumbar spine using fluoroscopic guidance ([id number]) on 05/16/2020 at 70 Years. Comments: 06/07/2020 9:51 Ericka Horton RN Bilatateral L5- 20% relief Radiofrequency ablation of medial branch of lumbar nerve using fluoroscopic guidance ([id number]) on 01/25/2020 at 69 Years. Comments: 02/23/2020 11:08 EDT - Tristan [employer] Statistical Financial Analyst., Charline B/Jenny S1-S3 RFA 35% relief Injection of sacroiliac joint using fluoroscopic guidance ([id number]) on 11/30/2019 at 69 Years. Comments: 12/29/2019 11:39 EDT - Tristan [employer] Financial Analyst., Charline B/Jenny SIJI right 20% left 20% Radiofrequency ablation of medial branch of lumbar nerve using fluoroscopic guidance ([id number]) on 10/05/2019 at 69 Years. Comments: 11/09/2019 13:45 EDT - Tristan [employer] Financial Analyst., Charline Hickey/L L3-L4 RFA 80% relief that continues Laminectomy ([id number]) on 06/28/2019 at 69 Years. Comments: 06/28/2019 17:28 SENA Barrios RN, Sherlyn Cortes CERVICAL FUSION POSTERIOR, C3-T1 Injection of sacroiliac joint using fluoroscopic guidance ([id number]) on 04/27/2019 at 69 Years. Comments: 05/26/2019 14:44 EST - Day RMA, Xuan L B/L 60% to present Radiofrequency ablation of medial branch of lumbar nerve using fluoroscopic guidance ([id number]) on 03/16/2019 at 69 Years. Comments: 04/14/2019 13:03 EST - Day RMA, Xuan L B/L L3-S1 55% relief Injection of sacroiliac joint using fluoroscopic guidance ([id number]) on 01/19/2019 at 68 Years. Comments: 02/10/2019 13:02 JULISA Guzmán RN, Denisse B/L 75% relief Partial substernal thyroidectomy ([id number]) on 12/09/2018 at 68 Years. Comments: 12/09/2018 15:02 JULISA Berrios RN, BSN, Malena R right Injection of sacroiliac joint using fluoroscopic guidance ([id number]) on 08/04/2018 at 68 Years. Comments: 08/26/2018 13:19 Kayla Hagan RN 65% relief to present Arthroplasty of knee ([id number]) on 06/01/2018 at 68 Years. Comments: 06/01/2018 12:33 SENA Barrios RN, Sherlyn Cortes RIGHT Injection of sacroiliac joint using fluoroscopic guidance ([id number]) on 01/06/2018 at 67 Years. Comments: 02/04/2018 13:17 Mariangel Lemus RN bilateral SJI 65% relief Radiofrequency ablation of medial branch of lumbar nerve using fluoroscopic guidance ([id number]) on 09/16/2017 at 67 Years. Comments: 10/21/2017 11:23 Kayla Hagan RN bilat L2-L5 MB RFA- 50% relief at time of OV Injection of sacroiliac joint using fluoroscopic guidance ([id number]) on 08/05/2017 at 67 Years. Comments: 09/03/2017 13:27 Rachna Calle RN b/l reallly no change in back pain approx 100 %relief on right buttock pain approx 70 % relief left buttock pain Total knee arthroplasty b/l ([id number]) on 06/08/2017 at 67 Years. Comments: 06/08/2017 14:20 Sherlyn Camarena RN Left. 06/08/2017 14:20 Sherlyn Camarena RN KNEE TOTAL ARTHROPLASTY sacroiliac joint injection on 04/01/2017 at 67 Years. Comments: 04/30/2017 13:39 Teena Arteaga RN B/L 40% relief Gel shots in left knee on 12/09/2016 at 66 Years. Comments: 02/05/2017 13:14 EDT - [facility] Senior Firmware Engineer., Rigo Nugent 3 times 0% relief Radiofrequency ablation of medial branch of lumbar nerve using fluoroscopic guidance ([id number]) on 11/12/2016 at 66 Years. Comments: 12/08/2016 13:21 Rachna Calle RN Right L2-L5 30 % relief after 2 weeks Radiofrequency ablation of medial branch of lumbar nerve using fluoroscopic guidance ([id number]) on 10/29/2016 at 66 Years. Comments: 12/08/2016 13:21 Rachna Calle RN left 30 % relief immediate Injection of facet joint using fluoroscopic guidance ([id number]) on 09/17/2016 at 66 Years. Comments: 10/09/2016 15:43 Denisse Garcia RN 70% relief for 2 hours still has 305 relief 10/09/2016 15:33 Denisse Garcia RN B/Jenny L3-S1 Injection into facet joint of lumbar spine using fluoroscopic guidance ([id number]) on 06/04/2016 at 66 Years. Comments: 06/26/2016 14:22 Asmita Momin RN B/L L3-S1 70% relief to present Injection of sacroiliac joint using fluoroscopic guidance ([id number]) on 02/27/2016 at 66 Years. Comments: 03/27/2016 14:24 Denisse Jovel RN 60% relief for 4 days 03/27/2016 14:16 Denisse Jovel RN B/L Injection of sacroiliac joint using fluoroscopic guidance ([id number]) on 11/21/2015 at 65 Years. Comments: 12/13/2015 10:15 Mariangel Lemus RN bilateral 60% relief andd still working Hysterectomy (193285932). Cholecystectomy (81990825). Appendectomy (398857496). Thyroidectomy (17747412). Injection of nerve root of lumbar spine using fluoroscopic guidance ([id number]). Comments: 04/26/2020 8:46 SENA Fay RN, Ericka Chang bilateal L4- 40% relief Arthroplasty of knee (70935309). Skin cancer removal (3598326536). Comments: 02/05/2024 10:00 EDT - Charline Feliz 2023 Glaucoma surgery ([id number]). Comments: 02/05/2024 10:01 JANUARYT - Charline Feliz 2023 Cataract (741003732). Colonoscopy ([id number]). Comments: 01/02/2025 13:38 EDT - Radha Banks around 5 years ago. Colorectal neoplasm risk assessment Average risk. Informed Consent After discussing the rationale, risks and benefits, and alternatives to this procedure, the patient provided signed consent for the procedure. Pre-procedure diagnosis: Diarrhea, clinically significant. Medications (Selected) Inpatient Medications Ordered Lactated Ringers IV Ginette 1000 mL 1,000 mL: 1,000 mL, IV, 100 mL/hr, Routine, Start date 01/11/25 7:46:00 EDT, 10 hour(s), Total volume (mL): 1,000, 96.6 kg, 2.06, m2 Sodium Chloride 0.9% IV Ginette 1000 mL 1,000 mL: 1,000 mL, IV, 20 mL/hr, Routine, Start date 01/11/25 6:45:00 EDT, 50 hour(s), Total volume (mL): 1,000, 96.6 kg, 2.06, m2 Prescriptions Prescribed Klor Con 10 mEq Cap-ER: 1 tab, Oral, BID, # 180 cap(s), Refills(s) 4, Pharmacy: [facility], 158, cm, 08/19/24 13:39:00 EDT, Height/Length Dosing, 90.9, kg, 08/19/24 13:39:00 EDT, Weight Dosing [place] 325 mg-5 mg oral tablet: 1 tab(s), Oral, BID as needed for pain, 60 tab(s), Refill(s) 0, [facility]/pharmacy #[id number], 158, cm, 12/08/24 15:05:00 EDT, Height/Length Dosing, 97.1, kg, 12/08/24 15:05:00 EDT, Weight Dosing Synthroid 125 mcg (0.125 mg) Tab: 125 mcg, Oral, Daily, # 90 EA, Refills(s) 1, Pharmacy: [facility], 158, cm, 07/25/24 13:18:00 EDT, Height/Length Dosing, 92.7, kg, 07/25/24 13:18:00 EDT, Weight Dosing pregabalin 150 mg Cap: 150 mg = 1 cap(s), Oral, BID, X 90 day(s), # 180 cap(s), Refills(s) 0, Pharmacy: [facility], 158, cm, 10/20/24 13:29:00 EDT, Height/Length Dosing, 90.7, kg, 10/20/24 13:29:00 EDT, Weight Dosing sertraline 100 mg Tab: 100 mg = 1 tab(s), Oral, Daily, # 90 tab(s), Refills(s) 1, [id number] 158, cm, 12/08/24 15:05:00 EDT, Height/Length Dosing, 97.1, kg, 12/08/24 15:05:00 EDT, Weight Dosing Documented Medications Documented Colace 100 mg Cap: 100 mg = 1 cap(s), Oral, BID, PRN for constipation, # 20 cap(s), Refills(s) 0 Glucosamine Chondroitin oral capsule: 1 cap, Oral, BID, Prophylaxis High Potency Probiotic oral capsule: 1 cap, Oral, Daily, Prophylaxis Vascepa 1 g oral capsule: 2 gm = 2 cap(s), Oral, BID, Refills(s) 0, High cholesterol aspirin 81 mg Oral EC Tab: 81 mg = 1 tab(s), Oral, Daily, Refills(s) 0, Blood Thinner atorvastatin 40 mg Tab: Refills(s) 0, High cholesterol biotin: = 1 tab(s), Oral, BID, Refills(s) 0, Prophylaxis bisoprolol 10 mg Tab: 10 mg = 1 tab(s), Oral, Daily, High blood pressure calcium-vitamin D extended release: 2 tab(s), Oral, qAM, Prophylaxis dorzolamide-timolol Opth 2%-0.5% Ginette: 1 drop(s), Eye-Both, BID, Refill(s) 0 doxepin 10 mg Cap: 10 mg = 1 cap(s), Oral, Daily, Depression furosemide 40 mg Tab: See Instructions, Takes 20mg every other day and then 40mg on the other days, Refills(s) 0, diuretic/water pill isosorbide mononitrate 120 mg ER Tab: 120 mg = 1 tab(s), Oral, qAM, Refills(s) 0, High blood pressure latanoprost Opth 0.005% Ginette: 1 drop(s), OPTH, Once a day (at bedtime), 2.5 mL, Refill(s) 0, Dry eyes nitroglycerin 0.4 mg sublingual Tab: 0.4 mg = 1 tab(s), SubLingual, q5min, PRN for chest pain, # 100 tab(s), Refills(s) 0 omeprazole: 20 mg, Oral, Daily, Control of stomach acid primidone 50 mg Tab: 50 mg = 1 tab(s), Oral, Once a day (at bedtime), # 30 tab(s), Refills(s) 0 ranolazine 1000 mg oral tablet, extended release: 1,000 mg = 1 tab(s), Oral, BID, TAKE 1 TABLET BY MOUTH TWO TIMES A DAY tiZANidine 4 mg Tab: 8 mg = 2 tab(s), Oral, Bedtime, Refills(s) 0, Insomnia ASA Classification: Class III. . Monitoring: See anesthesia record. . Procedure The procedure was performed in the hospital. See anesthesia record for sedation given during procedure. The patient was positioned starting in the left lateral decubitus position. Endoscope type used was a pediatric-size. The endoscope was lubricated then introduced through the anus. The scope was advanced to the terminal ileum. No difficulties encountered during the procedure. The bowel preparation quality was good and was adequate (see polyps greater than or equal to 6 millimeters). The patient tolerated the procedure well. Last colonoscopy 5 Y Time to cecum: 4 min Time of withdrawal: 12 min Findings 1. Small internal hemorrhoids seen on retroflexion 2. Sessile polyp measuring 4 mm in the ascending colon status post resection and cold snare. 2 additional sessile polyps measuring 3 to 5 mm in the rectum status post resection using cold snare. Mild diverticulosis of the left colon, random biopsies were obtained to rule out microscopic colitis 3. Normal Terminal ileum Images Procedure images: [id number] . Post-Procedure Complications: none. Estimated blood loss: Minimal. Specimens: sent to pathology. Devices/ implants: none left in place. Impression and Plan 3 colon polyps Diverticulosis Internal hemorrhoids Recommendations: Repeat colonoscopy:: In 5 years. Follow-up:: in clinic for 1-2 weeks when pathology is available. Diet:: Previous. Medication resumption:: Continue current medications, Avoid NSAIDs. Return to activities:: After 24 hours. Education and Follow-up: Counseled: Patient, Family. Result Comment: Electronical ly Signed By: Tre SOMMERS, Blake Castro.br\Date and Time Signed: 01/11/25 09:49 EDT Other Comment: Missing Attac hment - attachment storage system not supported [id number] Can be viewed in source system Missing Attachment - attachment storage system not supported [id number] Can be viewed in source systemMissing Attachment - attachment storage system not supported [id number] Can be viewed in source systemMissing Attachment - attachment storage system not supported [id number] Can be viewed in source systemMissing Attachment - attachment storage system not supported [id number] Can be viewed in source system SURGICAL PATHOLOGY REPORT Observed: 07/2024 9:35 AM Status: F Source: [facility] [address] [place] [id number]- Surgical Pathology Report Collected Date/Time: 01/11/2025 09:35 EDT Pathologist: Laure Funk MD Received Date/Time: 01/11/2025 10:57 EDT Tre SOMMERS, Blake Toledo MD, Blake Rose Surgical Pathology Report - 01/13/2025 14:15 EDT - Auth (Verified) Final Diagnosis A: ASCENDING COLON POLYP: - TUBULAR ADENOMA B: RANDOM COLON BIOPSY: - Colonic mucosa with mild nonspecific chronic inflammation C: RECTAL POLYP: - Hyperplastic polyp (Electronic Signature) Myrlande. Good MD 01/13/2025 14:15 Clinical Information Screen for colon cancer, incontinence, altered bowel habits, status post cholecystectomy Pre-Op Diagnosis: Screen for colon cancer, incontinence, altered bowel habits, status post cholecystectomy Procedure: Colonoscopy Post-Op Diagnoses: 1. 3 colon polyps 2. Diverticulosis 3. Internal hemorrhoids Specimen(s) Received A: Ascending colon polyp B: Random colon biopsy C: Rectal polyp Gross Description A: Received in formalin, labeled with patient name, number and ascending colon are three fragments of jackson soft tissue, measuring 0.1 to 0.5 cm in greatest dimension, respectively. Entire specimen is submitted in one cassette. B: Received in formalin, labeled with patient name, number and random colon biopsy are multiple fragments of jackson soft tissue measuring 0.2 to 0.3 cm in diameter, respectively. Entire specimen is submitted in one cassette. C: Received in formalin, labeled with patient name, number and rectal polyp are two fragments of jackson-pink soft tissue measuring 0.3 cm diameter each. Entire specimen is submitted in one cassette. (YC) YLC:SHANNA Microscopic Description Microscopic examination performed unless gross only specified. Quality was accessed and acceptable. This report was transcribed using voice recognition technology and might contain unintended computerized carpet cleaner errors. Performed By: #### [id number] # ### [facility] [place] [address] [place] [address] SURGICAL PATHOLOGY REPORT Observed: 07/2024 9:35 AM Status: F Source: [facility] [address] [place] [id number]- Surgical Pathology Report Collected Date/Time: 01/11/2025 09:35 EDT Pathologist: Laure Funk MD Received Date/Time: 01/11/2025 10:57 EDT Tre SOMMERS, Blake Toledo MD, Blake Rose Surgical Pathology Report - 01/13/2025 14:15 EDT - Auth (Verified) Final Diagnosis A: ASCENDING COLON POLYP: - TUBULAR ADENOMA B: RANDOM COLON BIOPSY: - Colonic mucosa with mild nonspecific chronic inflammation C: RECTAL POLYP: - Hyperplastic polyp (Electronic Signature) Myrlande. Good MD 01/13/2025 14:15 Clinical Information Screen for colon cancer, incontinence, altered bowel habits, status post cholecystectomy Pre-Op Diagnosis: Screen for colon cancer, incontinence, altered bowel habits, status post cholecystectomy Procedure: Colonoscopy Post-Op Diagnoses: 1. 3 colon polyps 2. Diverticulosis 3. Internal hemorrhoids Specimen(s) Received A: Ascending colon polyp B: Random colon biopsy C: Rectal polyp Gross Description A: Received in formalin, labeled with patient name, number and ascending colon are three fragments of jackson soft tissue, measuring 0.1 to 0.5 cm in greatest dimension, respectively. Entire specimen is submitted in one cassette. B: Received in formalin, labeled with patient name, number and random colon biopsy are multiple fragments of jackson soft tissue measuring 0.2 to 0.3 cm in diameter, respectively. Entire specimen is submitted in one cassette. C: Received in formalin, labeled with patient name, number and rectal polyp are two fragments of jackson-pink soft tissue measuring 0.3 cm diameter each. Entire specimen is submitted in one cassette. () [facility] Microscopic Description Microscopic examination performed unless gross only specified. Quality was accessed and acceptable. This report was transcribed using voice recognition technology and might contain unintended computerized carpet cleaner errors. Performed By: #### [id number] # ### [facility] [address] [place] [address] MAIN OR PACU I RECORD Observed: 01/12/20 25 9:30 AM Status: F Source: [facility] Main OR PACU I Record PACU Phase I Document Type FT Summary Primary Physician: Blake Toledo MD Finalized Date/Time: 01/11/25 10:39:40 Pt. Name: DIANN LINDER John Meng/Sex: 1950 Female Med Rec #: [id number] Physician: Blake Toledo MD Financial #: [id number] Pt. Type: O Room/Bed: / Admit/Disch: 01/11/25 08:48:11 - Institution: Case Times PACU I FT Pre-Care Text: Identifies barriers to communication and implements measures to provide psychological support Develops individualized plan of care, and ensures continuity of care Maintains patient's dignity and privacy, and maintains patient confidentiality Identifies and reports philosophical, cultural, and spiritual beliefs and values Identifies individual values and wishes concerning care Implements aseptic technique, and administers prescribed antibiotic therapy and immunizing agents as ordered Evaluates postoperative tissue perfusion Implements thermoregulation measures, and monitors body temperature Evaluates postoperative respiratory status Evaluates postoperative cardiac status Evaluates postoperative neurological status Assesses pain control, collaborated in initiating patient-controlled analgesia and implements alternative methods of pain control Verifies allergies, administers prescribed medications and solutions, evaluates response to medications Entry 1 In PACU I 01/11/25 09:52:00 Discharge from PACU 01/11/25 10:22:00 I Outcomes Met? Yes Last Modified By: Dulce Maria Pastrana RN 01/11/25 10:39:22 Post-Care Text: The patient demonstrates knowledge of the expected response to the operative or invasive procedure The patient's care is consistent with the individualized perioperative plan of care The patient's right to privacy is maintained The patient's value system, lifestyle, ethnicity, and culture are considered, respected, and incorporated into the perioperative plan of care The patient participates in decisions affecting his or her perioperative plan of care The patient is free from signs and symptoms of infection The patient has wound/tissue perfusion consistent with or improved from baseline levels established preoperatively The patient is at or returning to normothermia at the conclusion of the immediate postoperative period The patient's respiratory function is consistent with or improved from baseline levels established preoperatively The patient's cardiovascular status is consistent with or improved from baseline levels established preoperatively The patient's cardiovascular status is consistent with or improved from baseline levels established preoperatively The patient demonstrates and/or reports adequate pain control throughout the perioperative period The patient received appropriate medication(s), safely administered during the perioperative period Acuity Level PACU I FT Entry 1 Start Time 01/11/25 09:52:00 Stop Time 01/11/25 10:22:00 Acuity Level Acuity Level I Last Modified By: Dulce Maria Pastrana RN 01/11/25 10:39:36 Finalized By: Dulce Maria Pastrana RN Document Signatures Signed By: Dulce Maria Pastrana RN 01/11/25 10:39 MAIN OR INTRAOPERATIVE RECORD Observed: 01/11/2025 9:30 AM Status: C Source: [facility] Main OR Intraoperative Recor d IntraOp Document Type FT Summary Primary Physician: Blake Toledo MD Finalized Date/Time: 01/12/25 10:48:51 Pt. Name: DIANN LINDER/Sex: 1950 Female Med Rec #: [id number] Physician: Blake Toledo MD Financial #: [id number] Pt. Type: O Room/Bed: / Admit/Disch: 01/11/25 08:48:11 - 01/11/25 23:59:59 Institution: Case Times FT Entry 1 Patient Times In Room 01/11/25 09:25:00 Out Room 01/11/25 09:50:00 Procedure Times Start 01/11/25 09:30:00 Stop 01/11/25 09:46:00 Anesthesia Times Start 01/11/25 09:25:00 Stop 01/11/25 09:50:00 Time at [facility] 01/11/25 09:34:00 Last Modified By: Deanna Matute RN 01/11/25 09:50:48 Case Attendance FT Entry 1 Entry 2 Entry 3 Case Attendee Juan Carlos CUEVA, Sangeeta Toledo MD, Deanna Montaño RN Role Performed Scrub - Primary Surgeon - Primary Shower Doors And Panels Fabricator - Primary Time In 01/11/25 09:25:00 01/11/25 09:25:00 01/11/25 09:25:00 Time Out 01/11/25 09:50:00 01/11/25 09:50:00 01/11/25 09:50:00 Procedure COLONOSCOPY(.) COLONOSCOPY(.) COLONOSCOPY(.) Comments Last Modified By: Mar Feliz CST, RN, Deanna Matute RN, Deanna 01/12/25 10:47:32 F 01/11/25 09:50:49 F 01/11/25 09:50:49 Entry 4 Case Attendee Tk Bowers CRNA Role Performed TRADE SALES ASSISTANT Time In 01/11/25 09:25:00 Time Out 01/11/25 09:50:00 Procedure COLONOSCOPY(.) Comments Dr. Marcial supervising case Last Modified By: Deanna Matute RN 01/11/25 09:50:49 Perioperative Protocols FT Pre-Care Text: Implements protective measures prior to operative or invasive procedure, confirms identity before the operative or invasive procedure, verifies operative procedure, surgical site, and laterality Entry 1 Procedure(s) COLONOSCOPY(.) Patient Identity Birthday, ID Band Verified (select at Check, Patient least 2): Participation Consents / H and P Anesthesia Consent, Operative Site N/A Verified H&P, Surgery/Procedure Marking Verified Consent Surgical Site No Laterality Verified n/a Verified Procedure Verified Yes Correct Patient Yes Position Verified Availability Equipment, Medication Prep Dry n/a Verified (If Applicable) PreOp Antibiotic No Time Out Juan Carlos CUEVA, Sangeeta Cortes, Given Participants Blake Toledo MD, Juju CUEVA, Elissa Bazzi CRNA, Christopher P. Time Out Complete 01/11/25 09:27:00 Outcomes Met? Yes Last Modified By: Deanna Matute RN 01/11/25 09:27:48 Post-Care Text: The patient is free from signs and symptoms of injury caused by extraneous objects Allergy Information FT Pre-Care Text: Verifies allergies Entry 1 Allergies Reviewed? Yes Allergies Reviewed Self/Patient With Outcomes Met? Yes Last Modified By: Deanna Matute RN 01/11/25 09:27:53 Post-Care Text: The patient received appropriate medication(s) safely administered during the perioperative period Surgical Procedures FT Entry 1 Procedure Description Procedure COLONOSCOPY Modifiers . Surgeon Description Colonoscopy with ascending colon polypectomy, random colon biopsy, rectal polypectomy. Primary Procedure Yes Primary Surgeon Blake Toledo MD Start 01/11/25 09:30:00 Stop 01/11/25 09:46:00 Anesthesia Type General Surgical Service Gastroenterology Wound Class 2 - Clean-Contaminated Last Modified By: Deanna Matute RN 01/11/25 09:50:43 General Case Data FT Pre-Care Text: Classifies surgical wound, implements aseptic technique, initiates traffic control Entry 1 Case Information OR ENDO 1 FT Case Level Level 2 Wound Class 2 - Clean-Contaminated Specialty Gastroenterology ASA Class 3 Preop Diagnosis Screen for colon Postop Same As Preop No cancer, incontinence, altered bowel haits, status post cholecystectomy Postop Diagnosis Ascending colon polyp, Outcomes Met? Yes rectal polyp, internal hemorrhoids, diverticulosis Last Modified By: Deanna Matute RN 01/11/25 09:46:57 Post-Care Text: The patient is free from signs and symptoms of infection Skin Assessment (Pre Procedure) FT Pre-Care Text: Implements protective measures to prevent skin/ tissue injury due to thermal or mechanical sources Evaluates for signs and symptoms of physical injury to skin and tissue Entry 1 Skin Integrity Intact, [place], Warm, & Skin Abnormality No Dry Outcomes Met? Yes Last Modified By: Deanna Matute RN 01/11/25 09:28:53 Post-Care Text: The patient is free from signs and symptoms of injury caused by extraneous objects Patient Positioning FT Pre-Care Text: Identifies physical alterations that require additional precautions for procedure-specific positioning, verifies presence of prosthetics or corrective devices, positions the patient, evaluates the patient for signs and symptoms of injury as a result of positioning Entry 1 Procedure COLONOSCOPY(.) Body Position Lateral, right side up Feet Uncrossed? Yes Left Arm Position Resting at Side Right Arm Position Resting at Side Left Leg Position Extended Right Leg Position Extended Positioning Device Pillow Under Head Large, Safety Strap Press Points Checked Yes By Sangeeta Rangel RN, Deanna Matute RN Outcomes Met? Yes Last Modified By: Deanna Matute RN 01/11/25 09:29:02 Post-Care Text: The patient is free from signs and symptoms of injury related to positioning Patient Care Devices FT Pre-Care Text: Implements protective measures to prevent skin/ tissue injury due to thermal or mechanical sources Entry 1 Entry 2 Equipment Type ENDOSCOPY VIDEO SYSTEM MONITOR CHARGE SURGERY Equipment Number [id number] Equipment Setting Outcomes Met? Yes Yes Last Modified By: Deanna Matute RN, RN, Madaline F 01/11/25 09:29:23 F 01/11/25 09:29:23 Post-Care Text: The patient is free from signs and symptoms of injury caused by extraneous objects Transport To OR FT Pre-Care Text: Transports according to individual needs. Evaluates for signs and symptoms of skin and tissue injury as a result of transfer or transport Entry 1 Via Cart By Deanna Matute RN Safety Precautions Safety Strap, Side Outcomes Met? Yes Rails Up Last Modified By: Deanna Matute RN 01/11/25 09:29:33 Post-Care Text: The patient is free from signs and symptoms of injury related to transfer/transport Departure From OR FT Pre-Care Text: Transports according to individual needs. Evaluates for signs and symptoms of skin and tissue injury as a result of transfer or transport. Entry 1 Via Cart Safety Precautions Safety Strap, Side Rails Up PostOp Destination PACU Transported By Deanna Matute RN Patient Status Stable Skin. Condition Intact, [place], Warm, & Dry Airway Maintenance Oxygen in Use? No Airway Device N/A Outcomes Met? Yes Last Modified By: Deanna Matute RN 01/11/25 09:29:52 Post-Care Text: The patient is free from signs and symptoms of injury related to transfer/transport General Comments: Report given to TWO NEEDLE MACHINE OPERATOR /MD,pediatric dentist Administration FT Pre-Care Text: Verifies allergies, administers prescribed medications and solutions, administers prescribed antibiotic therapy and immunizing agents as ordered, evaluates response to medications Administers prescribed medications and solutions Entry 1 Expiration Date Yes Outcomes Met? Yes Verified Last Modified By: Deanna Matute RN 01/11/25 09:29:55 Post-Care Text: The patient received appropriate medication(s) safely administered during the perioperative period For [place] please see scanned medication reconcilliation form for medications used at the field during the procedure. Cultures & Specimens FT Pre-Care Text: Manages specimen handling and disposition Manages culture specimen collection Entry 1 Cultures Ordered n/a Specimens Ordered Yes Specimen Disposition Designated OR Area Frozen Section Times Outcomes Met? Yes Last Modified By: Deanna Matute RN 01/11/25 09:34:56 Post-Care Text: The patient is free from signs and symptoms of injury caused by extraneous objects The patient is free from signs and symptoms of infection Sign Out FT Entry 1 Before Patient Leaves OR Nurse verbally Yes Nurse verbally n/a confirms with the confirms with the team the name of team that the procedure(s) instrument, sponge, recorded and needle counts are correct (or N/A) Nurse verbally Yes Nurse verbally Yes confirms with the confirms with the team how the team whether there specimen is labeled are any equipment (including patient problems to be name), if applicable addressed Sign Out Complete 01/11/25 09:46:00 Last Modified By: Deanna Matute RN 01/11/25 09:47:39 Case Comments <None> Finalized By: Mra Feliz CST Document Signatures Signed By: Deanna Matute RN 01/11/25 09:50 Mar Feliz CST 01/12/25 10:48 Unfinalized History Date/Time Username Reason for Unfinalizing Freetext Reason for Unfinalizing 01/12/25 10:46 [id number] Other - See Nurses Notes 01/12/25 Chart opened to review and send charges [facility]oth [facility] H&P UPDATE Observed: 01/11/2025 9:25 AM Status: F Source: [facility] H&P Update Patient: DIANN LINDER Age: 74 years Sex: Female : 1950 Associated Diagnoses: None Author: Tre SOMMERS, Blake Rivero Preoperative Information Chief compliant/Indication for procedure: Incontinence Chief Complaint as above Review of Systems All systems reviewed, negative except as mentioned above Health Status Allergies: Allergic Reactions (Selected) Severity Not Documented Amoxicillin- Hives. Current medications: (Selected) Inpatient Medications Ordered Lactated Ringers IV Ginette 1000 mL 1,000 mL: 1,000 mL, IV, 100 mL/hr, Routine, Start date 01/11/25 7:46:00 EDT, 10 hour(s), Total volume (mL): 1,000, 96.6 kg, 2.06, m2 Sodium Chloride 0.9% IV Ginette 1000 mL 1,000 mL: 1,000 mL, IV, 20 mL/hr, Routine, Start date 01/11/25 6:45:00 EDT, 50 hour(s), Total volume (mL): 1,000, 96.6 kg, 2.06, m2 Prescriptions Prescribed Klor Con 10 mEq Cap-ER: 1 tab, Oral, BID, # 180 cap(s), Refills(s) 4, Pharmacy: [facility], 158, cm, 08/19/24 13:39:00 EDT, Height/Length Dosing, 90.9, kg, 08/19/24 13:39:00 EDT, Weight Dosing [place] 325 mg-5 mg oral tablet: 1 tab(s), Oral, BID as needed for pain, 60 tab(s), Refill(s) 0, [id number], cm, 12/08/24 15:05:00 EDT, Height/Length Dosing, 97.1, kg, 12/08/24 15:05:00 EDT, Weight Dosing Synthroid 125 mcg (0.125 mg) Tab: 125 mcg, Oral, Daily, # 90 EA, Refills(s) 1, Pharmacy: [facility], 158, cm, 07/25/24 13:18:00 EDT, Height/Length Dosing, 92.7, kg, 07/25/24 13:18:00 EDT, Weight Dosing pregabalin 150 mg Cap: 150 mg = 1 cap(s), Oral, BID, X 90 day(s), # 180 cap(s), Refills(s) 0, Pharmacy: [facility], 158, cm, 10/20/24 13:29:00 EDT, Height/Length Dosing, 90.7, kg, 10/20/24 13:29:00 EDT, Weight Dosing sertraline 100 mg Tab: 100 mg = 1 tab(s), Oral, Daily, # 90 tab(s), Refills(s) 1, [id number], 158, cm, 12/08/24 15:05:00 EDT, Height/Length Dosing, 97.1, kg, 12/08/24 15:05:00 EDT, Weight Dosing Documented Medications Documented Colace 100 mg Cap: 100 mg = 1 cap(s), Oral, BID, PRN for constipation, # 20 cap(s), Refills(s) 0 Glucosamine Chondroitin oral capsule: 1 cap, Oral, BID, Prophylaxis High Potency Probiotic oral capsule: 1 cap, Oral, Daily, Prophylaxis Vascepa 1 g oral capsule: 2 gm = 2 cap(s), Oral, BID, Refills(s) 0, High cholesterol aspirin 81 mg Oral EC Tab: 81 mg = 1 tab(s), Oral, Daily, Refills(s) 0, Blood Thinner atorvastatin 40 mg Tab: Refills(s) 0, High cholesterol biotin: = 1 tab(s), Oral, BID, Refills(s) 0, Prophylaxis bisoprolol 10 mg Tab: 10 mg = 1 tab(s), Oral, Daily, High blood pressure calcium-vitamin D extended release: 2 tab(s), Oral, qAM, Prophylaxis dorzolamide-timolol Opth 2%-0.5% Ginette: 1 drop(s), Eye-Both, BID, Refill(s) 0 doxepin 10 mg Cap: 10 mg = 1 cap(s), Oral, Daily, Depression furosemide 40 mg Tab: See Instructions, Takes 20mg every other day and then 40mg on the other days, Refills(s) 0, diuretic/water pill isosorbide mononitrate 120 mg ER Tab: 120 mg = 1 tab(s), Oral, qAM, Refills(s) 0, High blood pressure latanoprost Opth 0.005% Ginette: 1 drop(s), OPTH, Once a day (at bedtime), 2.5 mL, Refill(s) 0, Dry eyes nitroglycerin 0.4 mg sublingual Tab: 0.4 mg = 1 tab(s), SubLingual, q5min, PRN for chest pain, # 100 tab(s), Refills(s) 0 omeprazole: 20 mg, Oral, Daily, Control of stomach acid primidone 50 mg Tab: 50 mg = 1 tab(s), Oral, Once a day (at bedtime), # 30 tab(s), Refills(s) 0 ranolazine 1000 mg oral tablet, extended release: 1,000 mg = 1 tab(s), Oral, BID, TAKE 1 TABLET BY MOUTH TWO TIMES A DAY tiZANidine 4 mg Tab: 8 mg = 2 tab(s), Oral, Bedtime, Refills(s) 0, Insomnia Problem list: All Problems Altered bowel habits / SNOMED CT 065164708 / Confirmed Arthritis / SNOMED CT 9087228 / Confirmed BMI 38.0-38.9,adult / SNOMED CT 466858820 / Confirmed C. difficile diarrhea / SNOMED CT 2402650643 / Confirmed Cellulitis of leg / SNOMED CT 1400475663 / Confirmed Chronic back pain / SNOMED CT 919579804 / Confirmed Chronic diastolic congestive heart failure / SNOMED CT 5277535278 / Confirmed Added per outpatient CDI policy based on [facility] report Hypertensive heart disease with heart failure (I11.0) Persistent (Historical Claim) ??? Sep 02, 2023 ??? [facility], Heart ??? Heart Failure, Except End-Stage and Acute and 09/12/2022 [facility]- [id number] chronic diastolic heart failure and 07/06/2024 [facility] consult- anxiety and depression, iron deficiency anemia, CKD 3, PFTs 01/25/2021 moderate obstruction on spirometry without a bronchodilator response, elevated RV suggests air trapping, mildly reduced diffusion capacity, overall stufy compatible with moderate emphysema, [place] diastolic heart failure (page 4), coronary artery disease involving [place] coronary artery of [place] heart with other form of angina pectoris [id number] Chronic kidney disease, stage 3a / SNOMED CT 6782561622 / Confirmed Added per Dr. Cordova query response and outpatient CDI policy based on: [facility] report- Chronic kidney disease, stage 3b (N18.32) Persistent (Historical Claim) ??? Jan 06, 2024 ??? [facility] Kidney ??? Chronic Kidney Disease, Moderate (Stage 3B) Labs- 09/12/2022 eGFR 49, 10/31/2021 eGFR 49, 07/04/2019 eGFR 55, 11/24/2018 eGFR 49 07/06/2024 [facility] consult- anxiety and depression, iron deficiency anemia, CKD 3 Chronic obstructive pulmonary disease / SNOMED CT 016393929 / Confirmed Added per outpatient CDI policy based on: [facility] Chronic obstructive pulmonary disease, unspecified (J44.9) Persistent (Historical Claim) ??? Sep 02, 2023 ??? [facility], Lung ??? Chronic Obstructive Pulmonary Disease, Interstitial Lung Disorders, and Other Chronic Lung Disorders 07/06/2024 [facility] consult- anxiety and depression, iron deficiency anemia, CKD 3, PFTs 01/25/2021 moderate obstruction on spirometry without a bronchodilator response, elevated RV suggests air trapping, mildly reduced diffusion capacity, overall stufy compatible with moderate emphysema, [place] diastolic heart failure (page 4), coronary artery disease involving [place] coronary artery of [place] heart with other form of angina pectoris [id number] 04/30/2022 H&P- CHF, HTN, emphysema or COPD Depression / SNOMED CT 32714478 / Confirmed Former smoker / SNOMED CT 55521484 / Confirmed Glaucoma / SNOMED CT 90419017 / Confirmed H/O hematuria / SNOMED CT 1929398185 / Confirmed Heart disease / SNOMED CT 89565957 / Confirmed Hx of basal cell carcinoma / SNOMED CT 8353418933 / Confirmed Hx of thyroid cancer / SNOMED CT 0607152325 / Confirmed Hyperlipidemia / SNOMED CT 96127229 / Confirmed Hypertension / SNOMED CT 1454090615 / Confirmed Hypertensive heart and kidney disease with heart failure / SNOMED CT 0400761904 / Confirmed Linked per outpatient CDI policy. Hypothyroid / SNOMED CT 69350464 / Confirmed Incontinence / SNOMED CT 22152077 / Confirmed Iron deficiency anemia / SNOMED CT 428561603 / Confirmed Noted in 07/06/2024 [facility] consultation note and added per outpatient CDI policy Kidney stones / SNOMED CT 825783100 / Confirmed Long-term current use of opiate analgesic drug / SNOMED CT 936087262595261 / Confirmed Added secondary to current Opioid Treatment Agreement Obesity (BMI 30-39.9) / SNOMED CT 686773761 / Confirmed Osteoarthritis / SNOMED CT 4822476734 / Confirmed Renal mass / SNOMED CT 620307556 / Confirmed S/P cholecystectomy / SNOMED CT 8771318602 / Confirmed SK (seborrheic keratosis) / SNOMED CT 5377496435 / Confirmed Skin cancer / SNOMED CT 9244813004 / Confirmed Sleep apnea / SNOMED CT 384962304 / Confirmed Smoker / SNOMED CT 973217882 / Confirmed Added secondary to documentation in Social History. SOB (shortness of breath) / SNOMED CT 675909002 / Confirmed Thyroid cancer / SNOMED CT 064176998 / Confirmed Resolved: Anxiety / SNOMED CT 92284671 Resolved: Arthritis / SNOMED CT 5786912 Resolved: At risk for falls / SNOMED CT 564398449 Problem added when Risk for Falls Careplan was initiated. Resolved due to patient discharge. Resolved: At risk for falls / SNOMED CT 072575850 Problem added when Risk for Falls Careplan was initiated. Resolved due to patient discharge. Resolved: Carpal tunnel / SNOMED CT 242508071 Resolved: Hypotension / SNOMED CT 68132897 Resolved: Liver disease / SNOMED CT 605253973 Resolved: Microscopic hematuria / SNOMED CT 931325512 Resolved: Osteopenia / SNOMED CT 866712672 Resolved: Thyroid cancer / SNOMED CT 9818795679 Resolved: Trigeminal neuralgia of left side of face / SNOMED CT 48505991 Canceled: Abnormal kidney function / SNOMED CT 43666795 Canceled: Anemia / SNOMED CT 529045812 Canceled: Anemia / SNOMED CT 198695191 Canceled: At risk for falls / SNOMED CT 484862909 Problem added when Risk for Falls Careplan was initiated. Resolved due to patient discharge. Canceled: At risk for falls / SNOMED CT 796391774 Problem added when Risk for Falls Careplan was initiated. Canceled: BMI 35.0-35.9,adult / SNOMED CT 150285380 Canceled: BMI 37.0-37.9, adult / SNOMED CT 809142961 Canceled: Cancer, uterine / SNOMED CT 8759112482 Canceled: Depression / SNOMED CT 78023104 Canceled: Hematoma / SNOMED CT 0332234152 Canceled: Hematuria / SNOMED CT 980384062 Canceled: HTN (hypertension) / SNOMED CT 4474941511 Canceled: Impaired skin integrity / SNOMED CT 81993720 Problem added on documentation of skin impairments. Resolved due to patient discharge. Canceled: Smoker / IMO [id number] Added secondary to documentation in Social History. Canceled: Smoker / SNOMED CT 55321763 Added secondary to documentation in Social History. Canceled: Thyroid nodule / SNOMED CT 047133699, Active Problems (34) Altered bowel habits Arthritis BMI 38.0-38.9,adult C. difficile diarrhea Cellulitis of leg Chronic back pain Chronic diastolic congestive heart failure Chronic kidney disease, stage 3a Chronic obstructive pulmonary disease Depression Former smoker Glaucoma H/O hematuria Heart disease Hx of basal cell carcinoma Hx of thyroid cancer Hyperlipidemia Hypertension Hypertensive heart and kidney disease with heart failure Hypothyroid Incontinence Iron deficiency anemia Kidney stones Long-term current use of opiate analgesic drug Obesity (BMI 30-39.9) Osteoarthritis Renal mass S/P cholecystectomy SK (seborrheic keratosis) Skin cancer Sleep apnea Smoker SOB (shortness of breath) Thyroid cancer Histories Past Medical History: Active Thyroid cancer (628120483) Resolved Arthritis (6430644): Resolved. Anxiety (52547016): Resolved. Trigeminal neuralgia of left side of face (39683079): Resolved. Osteopenia (012543418): Resolved. Hypotension (23559533): Resolved. Thyroid cancer (4487954302): Resolved. Carpal tunnel (307834978): Resolved. Liver disease (347553744): Resolved. Microscopic hematuria (916319923): Resolved. Family History: Hypertension Mother Primary malignant neoplasm of female genital organ Mother Heart failure Mother Arthritis Mother Hyperlipidemia Mother Procedure history: Radiofrequency ablation of nerve root of lumbar spine using fluoroscopic guidance ([id number]) on 05/02/2024 at 74 Years. Comments: 06/03/2024 14:02 Antoinette Wood RN Covering L4-S1 facet joints Skin cancer, Basel cell removal ([id number]) on 02/04/2024 at 74 Years. Comments: 04/05/2024 13:33 Denisse Jovel RN Left shoulder blade Glaucoma drainage surgery ([id number]) on 01/04/2024 at 73 Years. Bilateral L3-5 Medial Branch Blocks ([id number]) on 09/02/2023 at 73 Years. Comments: 09/16/2023 14:42 Antoinette Cortes RN 85% relief for 4 hrs Injection of facet joint using fluoroscopic guidance ([id number]) on 07/15/2023 at 73 Years. Comments: 07/23/2023 15:02 Denisse Garcia RN 80% relief for 2 hours 07/23/2023 13:49 Ericka Duke RN bilateral L4-S1 50% relief Epidural injection of lumbar spine using fluoroscopic guidance ([id number]) on 01/21/2023 at 72 Years. Comments: 02/12/2023 12:36 Ericka Duke RN L5-S1 30% relief Epidural injection of lumbar spine using fluoroscopic guidance ([id number]) on 04/30/2022 at 72 Years. Comments: 06/02/2022 12:54 SENA Guzmán RN, Denisse L5/S1-50% relief ESWL - Extracorporeal shockwave lithotripsy for renal calculus ([id number]) on 11/07/2021 at 71 Years. ALINA L5/S1 ([id number]) on 10/23/2021 at 71 Years. Comments: 11/21/2021 15:36 Katelynn Meng RN L5/S1 60% relief Cystoscope ([id number]) on 04/29/2021 at 71 Years. Bilateral L3-L5 RFA ([id number]) on 04/10/2021 at 71 Years. Comments: 05/31/2021 12:43 Katelynn Moscoso RN L3-L5 20% relief Injection of nerve root of lumbar spine using fluoroscopic guidance ([id number]) on 05/16/2020 at 70 Years. Comments: 06/07/2020 9:51 Ericka Horton RN Bilatateral L5- 20% relief Radiofrequency ablation of medial branch of lumbar nerve using fluoroscopic guidance ([id number]) on 01/25/2020 at 69 Years. Comments: 02/23/2020 11:08 EDT - [employer] Charline B/L S1-S3 RFA 35% relief Injection of sacroiliac joint using fluoroscopic guidance ([id number]) on 11/30/2019 at 69 Years. Comments: 12/29/2019 11:39 EDT - [employer]., Charline B/L SIJI right 20% left 20% Radiofrequency ablation of medial branch of lumbar nerve using fluoroscopic guidance ([id number]) on 10/05/2019 at 69 Years. Comments: 11/09/2019 13:45 EDT - [employer] [employer]., Charline B/L L3-L4 RFA 80% relief that continues Laminectomy ([id number]) on 06/28/2019 at 69 Years. Comments: 06/28/2019 17:28 Sherlyn Medina RN CERVICAL FUSION POSTERIOR, C3-T1 Injection of sacroiliac joint using fluoroscopic guidance ([id number]) on 04/27/2019 at 69 Years. Comments: 05/26/2019 14:44 EST - Day RMA, Xuan L B/L 60% to present Radiofrequency ablation of medial branch of lumbar nerve using fluoroscopic guidance ([id number]) on 03/16/2019 at 69 Years. Comments: 04/14/2019 13:03 EST - Day RMA, Xuan L B/L L3-S1 55% relief Injection of sacroiliac joint using fluoroscopic guidance ([id number]) on 01/19/2019 at 68 Years. Comments: 02/10/2019 13:02 JULISA Guzmán RN, Denisse B/L 75% relief Partial substernal thyroidectomy ([id number]) on 12/09/2018 at 68 Years. Comments: 12/09/2018 15:02 JULISA Berrios RN, BSN, Malena R right Injection of sacroiliac joint using fluoroscopic guidance ([id number]) on 08/04/2018 at 68 Years. Comments: 08/26/2018 13:19 Kayla Hagan RN 65% relief to present Arthroplasty of knee ([id number]) on 06/01/2018 at 68 Years. Comments: 06/01/2018 12:33 Sherlyn Medina RN RIGHT Injection of sacroiliac joint using fluoroscopic guidance ([id number]) on 01/06/2018 at 67 Years. Comments: 02/04/2018 13:17 Mariangel Lemus RN bilateral SJI 65% relief Radiofrequency ablation of medial branch of lumbar nerve using fluoroscopic guidance ([id number]) on 09/16/2017 at 67 Years. Comments: 10/21/2017 11:23 Kayla Hagan RN bilat L2-L5 MB RFA- 50% relief at time of OV Injection of sacroiliac joint using fluoroscopic guidance ([id number]) on 08/05/2017 at 67 Years. Comments: 09/03/2017 13:27 Rachna Calle RN b/l reallly no change in back pain approx 100 %relief on right buttock pain approx 70 % relief left buttock pain Total knee arthroplasty b/l ([id number]) on 06/08/2017 at 67 Years. Comments: 06/08/2017 14:20 Sherlyn Camarena RN Left. 06/08/2017 14:20 Sherlyn Camarena RN KNEE TOTAL ARTHROPLASTY sacroiliac joint injection on 04/01/2017 at 67 Years. Comments: 04/30/2017 13:39 Teena Arteaga RN/Jenny 40% relief Gel shots in left knee on 12/09/2016 at 66 Years. 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 Comments: 12/08/2016 13:21 Rachna Calle RN Right L2-L5 30 % relief after 2 weeks Radiofrequency ablation of medial branch of lumbar nerve using fluoroscopic guidance ([id number]) on 10/29/2016 at 66 Years. Comments: 12/08/2016 13:21 Rachna Calle RN left 30 % relief immediate Injection of facet joint using fluoroscopic guidance ([id number]) on 09/17/2016 at 66 Years. Comments: 10/09/2016 15:43 Denisse Garcia RN 70% relief for 2 hours still has 305 relief 10/09/2016 15:33 Denisse Garcia RN B/Jenny L3-S1 Injection into facet joint of lumbar spine using fluoroscopic guidance ([id number]) on 06/04/2016 at 66 Years. Comments: 06/26/2016 14:22 Asmita Momin RN B/Jenny L3-S1 70% relief to present Injection of sacroiliac joint using fluoroscopic guidance ([id number]) on 02/27/2016 at 66 Years. Comments: 03/27/2016 14:24 Denisse Jovel RN 60% relief for 4 days 03/27/2016 14:16 Denisse Jovel RN B/Jenny Injection of sacroiliac joint using fluoroscopic guidance ([id number]) on 11/21/2015 at 65 Years. Comments: 12/13/2015 10:15 Mariangel Lemus RN bilateral 60% relief andd still working Hysterectomy ([id number]). Cholecystectomy ([id number]). Appendectomy ([id number]). Thyroidectomy ([id number]). Injection of nerve root of lumbar spine using fluoroscopic guidance ([id number]). Comments: 04/26/2020 8:46 SENA Fay RN, Ericka Chang bilateal L4- 40% relief Arthroplasty of knee ([id number]). Skin cancer removal ([id number]). Comments: 02/05/2024 10:00 EDT - Charline Feliz 2023 Glaucoma surgery ([id number]). Comments: 02/05/2024 10:01 EDT - Charline Feliz 2023 Cataract ([id number]). Colonoscopy ([id number]). Comments: 01/02/2025 13:38 EDT - Radha Banks around 5 years ago Physical Examination Vital Signs (last 24 hrs) Last Charted Temp Temporal 36.3 DegC (JAN 11:) Heart Rate Monitored L 56 bpm (JAN 11:) Resp Rate 18 br/min (JAN 11:) SBP H 176 mmHg (JAN 11:00) DBP H 93 mmHg (JAN 11:) Weight 96.6 kg (JAN 11:04) BMI 38.7 (JAN 11:04) General: in Nad Abdomen: Soft, NTND Impression and Plan Diagnosis: incontinence colonoscopy Result Comment: Electronical ly Signed By: Blake Toledo MD\.br\Date and Time Signed: 01/11/25 09:26 EDT DISCHARGE INSTRUCTIONS Observed: 025 8:48 AM Status: F Source: [facility] Discharge Instructions DIANN LINDER :1950 Visit Date:01/11/2025 Inpatient Discharge Instructions Your Care Team Admitting Physician - Blake Toledo MD Referring Physician - Blake Toledo MD Reason for Your Visit SCREEN FOR COLON CANCER, INCONTINENCE, ALTERED BOWEL HABITS, S/P CHOLECYSTECTOMY Your Diagnosis Colon polyps Diverticulosis Hemorrhoids, internal Tests Performed Pathology Tissue Exam -- Results Pending -- Please visit your patient portal for your results or contact your primary care physician. This Is Your Medications List acetaminophen-hydrocodone ([place] 325 mg-5 mg oral tablet) ascorbic acid/chondroitin/glucosa/jayson (Glucosamine Chondroitin oral capsule) aspirin (aspirin 81 mg Oral EC Tab) atorvastatin (atorvastatin 40 mg Tab) bifidobacterium/lactobacillus/streptococcus (High Potency Probiotic oral capsule) biotin bisoprolol (bisoprolol 10 mg Tab) calcium-vitamin D (calcium-vitamin D extended release) docusate (Colace 100 mg Cap) dorzolamide-timolol ophthalmic (dorzolamide-timolol Opth 2%-0.5% Ginette) doxepin (doxepin 10 mg Cap) furosemide (furosemide 40 mg Tab) icosapent (Vascepa 1 g oral capsule) isosorbide mononitrate (isosorbide mononitrate 120 mg ER Tab) latanoprost ophthalmic (latanoprost Opth 0.005% Ginette) levothyroxine (Synthroid 125 mcg (0.125 mg) Tab) nitroglycerin (nitroglycerin 0.4 mg sublingual Tab) omeprazole potassium chloride (Klor Con 10 mEq Cap-ER) pregabalin (pregabalin 150 mg Cap) primidone (primidone 50 mg Tab) ranolazine (ranolazine 1000 mg oral tablet, extended release) sertraline (sertraline 100 mg Tab) tizanidine (tiZANidine 4 mg Tab) Procedure History Radiofrequency ablation of nerve root of lumbar spine using fluoroscopic guidance (05/02/2024), Skin cancer (02/04/2024), Glaucoma drainage surgery (01/04/2024), Injection of facet joint using fluoroscopic guidance (09/02/2023), Injection of facet joint using fluoroscopic guidance (07/15/2023), Epidural injection of lumbar spine using fluoroscopic guidance (01/21/2023), Epidural injection of lumbar spine using fluoroscopic [...] fluoroscopic guidance (11/21/2015), Appendectomy, Arthroplasty of knee, Cancer of skin, Cataract, Cholecystectomy, Colonoscopy, Glaucoma surgery, Hysterectomy, Injection of nerve root of lumbar spine using fluoroscopic guidance, Thyroidectomy. Discharge Vitals Temperature (Temporal Artery) 36.4 ???C Heart Rate (Monitored) 53 Respiratory Rate 14 Blood Pressure 176/94 Height 158 cm Weight 96.6 kg BMI 38.7 What to do next Instructions From Your Doctor No qualifying data available. Previously Scheduled Follow-Up Appointments Thursday 2:30 PM EDT With: Where: [address] [address]24 1:20 PM EST With: JORDEN BERRIOS CNP Where: [address] [address]- New Follow Up Appointments after Discharge Follow Up with Tre SOMMERS, SARMAD Gomes, [facility] When: Comments: call office for follow up Where: [address], [address] [place] [address] [phone] Medications What How Much When Why Instructions Next Dose Unchanged acetaminophen-hydrocodone ([place] 325 mg-5 mg oral tablet) 1 Tablets By Mouth 2 times a day as needed for as needed for pain Back pain, chronic Unchanged ascorbic acid/ chondroitin/ glucosa/ jayson (Glucosamine Chondroitin oral capsule) 1 cap By Mouth 2 times a day Unchanged aspirin (aspirin 81 mg Oral EC Tab) 1 Tablets By Mouth Every day Unchanged atorvastatin (atorvastatin 40 mg Tab) Unchanged bifidobacterium/ lactobacillus/ streptococcus (High Potency Probiotic oral capsule) 1 cap By Mouth Every day Unchanged biotin 1 Tablets By Mouth 2 times a day Unchanged bisoprolol (bisoprolol 10 mg Tab) 1 Tablets By Mouth Every day Unchanged calcium-vitamin D (calcium-vitamin D extended release) 2 Tablets By Mouth Once a day (in the morning) Unchanged docusate (Colace 100 mg Cap) 1 Capsules By Mouth 2 times a day as needed for for constipation Unchanged dorzolamide-timolol ophthalmic (dorzolamide-timolol Opth 2%-0.5% Ginette) 1 Drops Both eyes 2 times a day Unchanged doxepin (doxepin 10 mg Cap) 1 Capsules By Mouth Every day Unchanged furosemide (furosemide 40 mg Tab) See instructions Takes 20mg every other day and then 40mg on the other days Unchanged icosapent (Vascepa 1 g oral capsule) 2 Capsules By Mouth 2 times a day Unchanged isosorbide mononitrate (isosorbide mononitrate 120 mg ER Tab) 1 Tablets By Mouth Once a day (in the morning) Unchanged latanoprost ophthalmic (latanoprost Opth 0.005% Ginette) 1 Drops Ophthalmic Once a day (at bedtime) Unchanged levothyroxine (Synthroid 125 mcg (0.125 mg) Tab) 125 Microgram By Mouth Every day Unchanged nitroglycerin (nitroglycerin 0.4 mg sublingual Tab) 1 Tablets Sublingual Every 5 minutes as needed for for chest pain Unchanged omeprazole 20 Milligram By Mouth Every day Unchanged potassium chloride (Klor Con 10 mEq Cap-ER) 1 tab By Mouth 2 times a day Unchanged pregabalin (pregabalin 150 mg Cap) 1 Capsules By Mouth 2 times a day Failed back syndrome Duration: 90 Days Unchanged primidone (primidone 50 mg Tab) 1 Tablets By Mouth Once a day (at bedtime) Unchanged ranolazine (ranolazine 1000 mg oral tablet, extended release) 1 Tablets By Mouth 2 times a day TAKE 1 TABLET BY MOUTH TWO TIMES A DAY Unchanged sertraline (sertraline 100 mg Tab) 1 Tablets By Mouth Every day UTI (urinary tract infection) Depression Former smoker Obesity (BMI 30-39.9) Unchanged tizanidine (tiZANidine 4 mg Tab) 2 Tablets By Mouth At bedtime Test Results No qualifying data available. Allergies amoxicillin (Hives) Problems Ongoing - Any problem that you are currently receiving treatment for. Altered bowel habits Arthritis BMI 38.0-38.9,adult C. difficile diarrhea Cellulitis of leg Chronic diastolic congestive heart failure Chronic kidney disease, stage 3a Chronic obstructive pulmonary disease Depression Former smoker Glaucoma H/O hematuria Heart disease Hx of basal cell carcinoma Hx of thyroid cancer Hyperlipidemia Hypertension Hypertensive heart and kidney disease with heart failure Hypothyroid Incontinence Iron deficiency anemia Kidney stones Long-term current use of opiate analgesic drug Obesity (BMI 30-39.9) Renal mass S/P cholecystectomy SK (seborrheic keratosis) Skin cancer Sleep apnea Smoker SOB (shortness of breath) Thyroid cancer Historical - Any problem that you are no longer receiving treatment for. Anxiety Arthritis Carpal tunnel Hypotension Liver disease Microscopic hematuria Osteopenia Thyroid cancer Trigeminal neuralgia of left side of face Education Materials Colonoscopy Care After Surgery Please read the instructions outlined below and refer to this sheet in the next few weeks. These discharge instructions provide you with general information on caring for yourself after you leave the hospital. Your doctor may also give you specific instructions. While your treatment has been planned according to the most current medical practices available, unavoidable complications occasionally occur. If you have any problems or questions after discharge, please call your doctor. ACTIVITY You may resume your regular activity, but move at a slower pace for the next 24 hours. Take frequent rest periods for the next 24 hours. Walking will help get rid of the air and reduce the bloated feeling in your abdomen (belly). No driving for 24 hours (because of the anesthesia (medicine) used during the test). You may shower. Do not sign any important legal documents or operate any machinery for 24 hours (because of the anesthesia used during the test). NUTRITION Drink plenty of fluids. You may resume your normal diet as instructed by your doctor. Begin with a light meal and progress to your normal diet. Heavy or fried foods are harder to digest and may make you feel nauseated (sick to your stomach). Avoid alcoholic beverages for 24 hours or as instructed. MEDICATIONS You may resume your normal medications unless your doctor tells you otherwise. WHAT YOU CAN EXPECT TODAY Some feelings of bloating in the abdomen. Passage of more gas than usual. Spotting of blood in your stool or on the toilet paper. FOLLOW-UP Your doctor will discuss the results of your test with you. SEEK IMMEDIATE MEDICAL ATTENTION IF: There is more than a spotting of blood in your stool. There is abdominal distention (your abdomen is swollen). There is vomiting. You have a temperature over 101.5 F. There is abdominal pain or discomfort that is severe or gets worse throughout the day. Hemorrhoids Hemorrhoids are swollen veins in and around the rectum or the opening of the butt (anus). There are two types of hemorrhoids: ??? Internal. These occur in the veins just inside the rectum. They may poke through to the outside and become irritated and painful. ??? External. These occur in the veins outside the anus. They can be felt as a painful swelling or hard lump near the anus. Most hemorrhoids do not cause severe problems. Often, they can be treated at home with diet and lifestyle changes. If home treatments do not help, you may need a procedure to shrink or remove the hemorrhoids. What are the causes? Hemorrhoids are caused by pressure near the anus. This pressure may be caused by: ??? Constipation or diarrhea. ??? Straining to poop. ??? . ??? Obesity. ??? Sitting or riding a bike for a long time. ??? Heavy lifting or other things that cause you to strain. ??? Anal sex. What are the signs or symptoms? Symptoms of this condition include: ??? Pain. ??? Anal itching or irritation. ??? Bleeding from the rectum. ??? Leakage of poop (stool). ??? Swelling of the anus. ??? One or more lumps around the anus. How is this diagnosed? Hemorrhoids can often be diagnosed through a visual exam. Other exams or tests may also be done, such as: ??? A digital rectal exam. This is when your health care provider feels inside your rectum with a gloved finger. ??? Anoscope. This is an exam of the anus using a small tube. ??? A blood test, if you have lost a lot of blood. ??? A sigmoidoscopy or colonoscopy. These are tests to look inside the colon using a tube with a camera on the end. How is this treated? In most cases, hemorrhoids can be treated at home with diet and lifestyle changes. If these changes do not help, you may need to have a procedure done. These procedures can make the hemorrhoids smaller or fully remove them. Common procedures include: ??? Rubber band ligation. Rubber bands are placed at the base of the hemorrhoids to cut off their blood supply. ??? Sclerotherapy. Medicine is put into the hemorrhoids to shrink them. ??? Infrared coagulation. A type of light energy is used to get rid of the hemorrhoids. ??? Hemorrhoidectomy surgery. The hemorrhoids are removed during surgery. Then, the veins that supply them are tied off. ??? Stapled hemorrhoidopexy surgery. The base of the hemorrhoid is stapled to the wall of the rectum. Follow these instructions at home: Medicines ??? Take zuzb-swi-fykcpbc and prescription medicines only as told by your provider. ??? Use medicated creams or medicines that are put in the rectum (suppositories) as told by your provider. Eating and drinking ??? Eat foods that are high in fiber, such as beans, whole grains, and fresh fruits and vegetables. ??? Ask your provider about taking products that have fiber added to them (fiber supplements). ??? Reduce the amount of fat in your diet. You can do this by eating low-fat dairy products, eating less red meat, and avoiding processed foods. ??? Drink enough fluid to keep your pee (urine) pale yellow. Managing pain and swelling ??? Take warm sitz baths for 20 minutes, 3???4 times a day. This can help ease pain and discomfort. You may do this in a bathtub or you can use a portable sitz bath that fits over the toilet. ??? If told, put ice on the affected area. It may help to use ice packs between sitz baths. ? Put ice in a plastic bag. ? Place a towel between your skin and the bag. ? Leave the ice on for 20 minutes, 2???3 times a day. ??? If your skin turns bright red, remove the ice right away to prevent skin damage. The risk of damage is higher if you cannot feel pain, heat, or cold. General instructions ??? Exercise. Ask your provider how much and what kind of exercise is best for you. In general, you should do moderate exercise for at least 30 minutes on most days of the week (150 minutes each week). You may want to try walking, biking, or yoga. ??? Go to the bathroom when you have the urge to poop. Do not wait. ??? Avoid straining to poop. ??? Keep the anus dry and clean. Use wet toilet paper or moist towelettes after you poop. ??? Do not sit on the toilet for a long time. This can increase blood pooling and pain. Where to find more information ??? National [place] of Diabetes and Digestive and Kidney Diseases: niddk.nih.gov Contact a health care provider if: ??? You have more pain and swelling that do not get better with treatment. ??? You have trouble pooping or you are not able to poop. ??? You have pain or inflammation outside the area of the hemorrhoids. Get help right away if: ??? You are bleeding from your rectum and you cannot get it to stop. This information is not intended to replace advice given to you by your health care provider. Make sure you discuss any questions you have with your health care provider. Document Revised: 01/07/2023 Document Reviewed: 01/07/2023 [employer] Patient Education ??? 2023 [employer] Diverticulosis Many people have small pouches in their colon called diverticulum. The diverticulum bulge outward through weak spots in the colon. You could have one or more of these pouches in the colon. The condition of having these pouches in the colon is called diverticulosis or diverticular disease. Diverticulosis is usually diagnosed by tests to evaluate something else. For example, you may have had a colonoscopy to screen for colon cancer when the diverticulosis was found. Most people with diverticulosis do not have any discomfort or problems. If symptoms develop, they may include mild cramps, bloating, and constipation. A complication of this condition is called diverticulitis. This is when the diverticulum become inflamed and infected. How to treat diverticulosis: Increasing the amount of fiber in the diet may reduce symptoms of diverticulosis and prevent complications such as diverticulitis (infected diverticuli). Fiber keeps stool soft and lowers pressure inside the colon so that bowel contents can move through easily. You should eat 20 to 35 grams of fiber each day. The table below shows the amount of fiber in some foods that you can easily add to your diet. Adding fiber slowly may decrease the bloating and fullness sometimes felt with an immediate high fiber diet. The doctor may also recommend taking a fiber product such as Citrucel or Metamucil once a day. In the past people with diverticulosis were to avoid nuts, corn, and seeds. This has not been found to be true. If you find that certain foods create cramping or bloating, avoid that food. Foods high in fiber include: Fresh fruits, fresh vegetables, legumes (beans), whole wheat bread, bran muffins or cereal, and nuts. See the table below for examples of high fiber foods. Remember, your goal is 20- 35 grams per day. Amount of fiber in different foods Food Serving Grams of fiber Fruits Apple (with skin) 1 medium apple 4.4 Banana 1 medium banana 3.1 Oranges 1 orange 3.1 Prunes 1 cup, pitted 12.4 Juices Apple, unsweetened, w/added ascorbic acid 1 cup 0.5 Grapefruit, white, canned, sweetened 1 cup 0.2 Grape, unsweetened, w/added ascorbic acid 1 cup 0.5 Screven 1 cup 0.7 Vegetables Cooked Green beans 1 cup 4.0 Carrots 1/2 cup sliced 2.3 Peas 1 cup 8.8 Potato (baked, with skin) 1 medium potato 3.8 Raw [place] (with peel) 1 cucumber 1.5 Lettuce 1 cup shredded 0.5 Tomato 1 medium tomato 1.5 Spinach 1 cup 0.7 Legumes Baked beans, canned, no salt added 1 cup 13.9 Kidney beans, canned 1 cup 13.6 Lee beans, canned 1 cup 11.6 Lentils, boiled 1 cup 15.6 Breads, pastas, flours Bran muffins 1 medium muffin 5.2 Oatmeal, cooked 1 cup 4.0 White bread 1 slice 0.6 Whole-wheat bread 1 slice 1.9 Pasta and rice, cooked Macaroni 1 cup 2.5 Rice, brown 1 cup 3.5 Rice, white 1 cup 0.6 Spaghetti (regular) 1 cup 2.5 Nuts Almonds 1/2 cup 8.7 Peanuts 1/2 cup 7.9 [facility] SEEK IMMEDIATE MEDICAL CARE IF: You develop abdominal (belly) pain. An oral temperature above _ 101??? F__develops. Repeated vomiting occurs. Blood is being passed in stools (bright red or black tarry stools). You develop any bowel problems or changes which you have not had before. Extra Information: To learn how much fiber and other nutrients are in different foods, visit the [place] Department of Agriculture (USDA) National Nutrient Database at: http://www.nal.usda.gov/fnic/foodcomp/search/ Created using data from the USDA National Nutrient Database for Standard Reference. Available at http://www.nal.usda.gov/fnic/foodcomp/search/. Information adapted from: [employer]??? Patient Information ???2009 [employer] 2013 http://www.Gravitant/contents/pflcdnkbidyi-vvlibqb-mbsgzz-the-basics Colon Polyps Colon polyps are tissue growths inside the colon, which is part of the large intestine. They are one of the types of polyps that can grow in the body. A polyp may be a round bump or a mushroom-shaped growth. You could have one polyp or more than one. Most colon polyps are noncancerous (benign). However, some colon polyps can become cancerous over time. Finding and removing the polyps early can help prevent this. What are the causes? The exact cause of colon polyps is not known. What increases the risk? The following factors may make you more likely to develop this condition: ??? Having a family history of colorectal cancer or colon polyps. ??? Being older than 45 years of age. ??? Being younger than 45 years of age and having a significant family history of colorectal cancer or colon polyps or a genetic condition that puts you at higher risk of getting colon polyps. ??? Having inflammatory bowel disease, such as ulcerative colitis or Crohn's disease. ??? Having certain conditions passed from parent to child (hereditary conditions), such as: ? Familial adenomatous polyposis (FAP). ? Burns syndrome. ? Turcot syndrome. ? Peutz???Jeghers syndrome. ? MUTYH-associated polyposis (MAP). ??? Being overweight. ??? Certain lifestyle factors. These include smoking cigarettes, drinking too much alcohol, not getting enough exercise, and eating a diet that is high in fat and red meat and low in fiber. ??? Having had childhood cancer that was treated with radiation of the abdomen. What are the signs or symptoms? Many times, there are no symptoms. If you have symptoms, they may include: ??? Blood coming from the rectum during a bowel movement. ??? Blood in the stool (feces). The blood may be bright red or very dark in color. ??? Pain in the abdomen. ??? A change in bowel habits, such as constipation or diarrhea. How is this diagnosed? This condition is diagnosed with a colonoscopy. This is a procedure in which a lighted, flexible scope is inserted into the opening between the buttocks (anus) and then passed into the colon to examine the area. Polyps are sometimes found when a colonoscopy is done as part of routine cancer screening tests. How is this treated? This condition is treated by removing any polyps that are found. Most polyps can be removed during a colonoscopy. Those polyps will then be tested for cancer. Additional treatment may be needed depending on the results of testing. Follow these instructions at home: Eating and drinking ??? Eat foods that are high in fiber, such as fruits, vegetables, and whole grains. ??? Eat foods that are high in calcium and vitamin D, such as milk, cheese, yogurt, eggs, liver, fish, and broccoli. ??? Limit foods that are high in fat, such as fried foods and desserts. ??? Limit the amount of red meat, precooked or cured meat, or other processed meat that you eat, such as hot dogs, sausages, pascal, or meat loaves. ??? Limit sugary drinks. Lifestyle ??? Maintain a healthy weight, or lose weight if recommended by your health care provider. ??? Exercise every day or as told by your health care provider. ??? Do not use any products that contain nicotine or tobacco, such as cigarettes, e-cigarettes, and chewing tobacco. If you need help quitting, ask your health care provider. ??? Do not drink alcohol if: ? Your health care provider tells you not to drink. ? You are , may be , or are planning to become . ??? If you drink alcohol: ? Limit how much you use to: ? 0???1 drink a day for women. ? 0???2 drinks a day for men. ? Know how much alcohol is in your drink. In the [place] one drink equals one 12 oz bottle of beer (355 mL), one 5 oz glass of wine (148 mL), or one 1??? oz glass of hard liquor (44 mL). General instructions ??? Take aevi-dum-tgbrvuh and prescription medicines only as told by your health care provider. ??? Keep all follow-up visits. This is important. This includes having regularly scheduled colonoscopies. Talk to your health care provider about when you need a colonoscopy. Contact a health care provider if: ??? You have new or worsening bleeding during a bowel movement. ??? You have new or increased blood in your stool. ??? You have a change in bowel habits. ??? You lose weight for no known reason. Summary ??? Colon polyps are tissue growths inside the colon, which is part of the large intestine. They are one type of polyp that can grow in the body. ??? Most colon polyps are noncancerous (benign), but some can become cancerous over time. ??? This condition is diagnosed with a colonoscopy. ??? This condition is treated by removing any polyps that are found. Most polyps can be removed during a colonoscopy. This information is not intended to replace advice given to you by your health care provider. Make sure you discuss any questions you have with your health care provider. Document Revised: 08/15/2020 Document Reviewed: 08/15/2020 [employer] Patient Education ??? 2023 [employer]. Common Emergency Awareness Tips IS IT A STROKE? Act FAST and Check for these signs: FACE Does the face look uneven? ARM Does one arm drift down? SPEECH Does their speech sound strange? TIME Call at any sign of stroke Heart Attack Signs Chest discomfort: Most heart attacks involve discomfort in the center of the chest and lasts more than a few minutes, or goes away and comes back. It can feel like uncomfortable pressure, squeezing, fullness or pain. Discomfort in upper body: Symptoms can include pain or discomfort in one or both arms, back, neck, jaw or stomach. Shortness of breath: With or without discomfort. Other signs: Breaking out in a cold sweat, nausea, or lightheaded. Remember, MINUTES DO MATTER. If you experience any of these heart attack warning signs, call to get immediate medical attention! Patient Survey You may receive a survey in the mail asking you about your stay with us. We want to hear from you, please share your experience with us by completing your survey. Thank you for choosing [facility] Chary Award Nomination The CHARY (Diseases Attacking the Immune SYstem) Award is an international recognition program that honors and celebrates the skillful, compassionate care nurses provide every day. Anyone who experiences or observes amazing care being provided by a nurse is encouraged to submit a nomination. To nominate your nurse, use your smart phone to scan the QR code below. Patient Portal You may access all of your results and other medical record information on our secure patient portal. If you are not signed up for this yet, please contact [employer] at [phone] to get signed up today. Language Information Language assistance services are available as needed. Patient Name: DIANN LINDER I have received these discharge instructions and my questions have been answered. Patient/Mechanical Equipment Test Engineer Name: Patient/Mechanical Equipment Test Engineer Signature: Relationship to Patient: Witness Name/Signature: Date: Result Comment: Electronical ly Signed By: Zeina CUEVA, Dulce Maria\.br\Date and Time Signed: 01/11/25 10:03 EDT PROGRESS NOTE-PHYSICIAN Observed: 2024 7:34 AM Status: F Source: [facility] Progress Note-Physician Patient: DIANN LINDER Age: 74 years Sex: Female : 1950 Associated Diagnoses: None Author: John Marcial MD Preoperative Information Anesthesia Preop Info: Time patient last ate or drank 01/11/2025 00:00:00. Anesthesia history: Patient history: None. Family history+: None. Informed consent: Signed by patient. Including risks, benefits, and alternatives related to the: Anesthetic plan, Postoperative pain management plan. Re-evaluation prior to induction: John Marcial MD. Review of Systems Eye Ear/Nose/Mouth/Throat Respiratory: No shortness of breath, No cough. Cardiovascular: no orthopnea, No chest pain, No peripheral edema. Gastrointestinal: No heartburn. Musculoskeletal Neurologic Health Status Allergies: Allergic Reactions (Selected) Severity Not Documented Amoxicillin- Hives., Allergies (1) Active Severity Reaction amoxicillin Hives Current medications: (Selected) Inpatient Medications Ordered Sodium Chloride 0.9% IV Ginette 1000 mL 1,000 mL: 1,000 mL, IV, 20 mL/hr, Routine, Start date 01/11/25 6:45:00 EDT, 50 hour(s), Total volume (mL): 1,000, 96.6 kg, 2.06, m2 Prescriptions Prescribed Klor Con 10 mEq Cap-ER: 1 tab, Oral, BID, # 180 cap(s), Refills(s) 4, Pharmacy: [facility], 158, cm, 08/19/24 13:39:00 EDT, Height/Length Dosing, 90.9, kg, 08/19/24 13:39:00 EDT, Weight Dosing [place] 325 mg-5 mg oral tablet: 1 tab(s), Oral, BID as needed for pain, 60 tab(s), Refill(s) 0, [facility]/pharmacy #[id number], 158, cm, 12/08/24 15:05:00 EDT, Height/Length Dosing, 97.1, kg, 12/08/24 15:05:00 EDT, Weight Dosing NuLYTELY Screven oral powder for reconstitution: See Instructions, 1 EA, Refill(s) 0, Per physician instructions, prior to colonoscopy., [facility]/pharmacy #[id number], 158, cm, 01/02/25 13:46:00 EDT, Height/Length Dosing, 96.6, kg, 01/02/25 13:46:00 EDT, Weight Dosing Synthroid 125 mcg (0.125 mg) Tab: 125 mcg, Oral, Daily, # 90 EA, Refills(s) 1, Pharmacy: [facility], 158, cm, 07/25/24 13:18:00 EDT, Height/Length Dosing, 92.7, kg, 07/25/24 13:18:00 EDT, Weight Dosing pregabalin 150 mg Cap: 150 mg = 1 cap(s), Oral, BID, X 90 day(s), # 180 cap(s), Refills(s) 0, Pharmacy: [facility], 158, cm, 10/20/24 13:29:00 EDT, Height/Length Dosing, 90.7, kg, 10/20/24 13:29:00 EDT, Weight Dosing sertraline 100 mg Tab: 100 mg = 1 tab(s), Oral, Daily, # 90 tab(s), Refills(s) 1, Pharmacy: [facility]/pharmacy #[id number], 158, cm, 12/08/24 15:05:00 EDT, Height/Length Dosing, 97.1, kg, 12/08/24 15:05:00 EDT, Weight Dosing Documented Medications Documented Colace 100 mg Cap: 100 mg = 1 cap(s), Oral, BID, PRN for constipation, # 20 cap(s), Refills(s) 0 Glucosamine Chondroitin oral capsule: 1 cap, Oral, BID, Prophylaxis High Potency Probiotic oral capsule: 1 cap, Oral, Daily, Prophylaxis Vascepa 1 g oral capsule: 2 gm = 2 cap(s), Oral, BID, Refills(s) 0, High cholesterol aspirin 81 mg Oral EC Tab: 81 mg = 1 tab(s), Oral, Daily, Refills(s) 0, Blood Thinner atorvastatin 40 mg Tab: Refills(s) 0, High cholesterol biotin: = 1 tab(s), Oral, BID, Refills(s) 0, Prophylaxis bisoprolol 10 mg Tab: 10 mg = 1 tab(s), Oral, Daily, High blood pressure calcium-vitamin D extended release: 2 tab(s), Oral, qAM, Prophylaxis dorzolamide-timolol Opth 2%-0.5% Ginette: 1 drop(s), Eye-Both, BID, Refill(s) 0 doxepin 10 mg Cap: 10 mg = 1 cap(s), Oral, Daily, Depression furosemide 40 mg Tab: See Instructions, Takes 20mg every other day and then 40mg on the other days, Refills(s) 0, diuretic/water pill isosorbide mononitrate 120 mg ER Tab: 120 mg = 1 tab(s), Oral, qAM, Refills(s) 0, High blood pressure latanoprost Opth 0.005% Ginette: 1 drop(s), OPTH, Once a day (at bedtime), 2.5 mL, Refill(s) 0, Dry eyes nitroglycerin 0.4 mg sublingual Tab: 0.4 mg = 1 tab(s), SubLingual, q5min, PRN for chest pain, # 100 tab(s), Refills(s) 0 omeprazole: 20 mg, Oral, Daily, Control of stomach acid primidone 50 mg Tab: 50 mg = 1 tab(s), Oral, Once a day (at bedtime), # 30 tab(s), Refills(s) 0 ranolazine 1000 mg oral tablet, extended release: 1,000 mg = 1 tab(s), Oral, BID, TAKE 1 TABLET BY MOUTH TWO TIMES A DAY tiZANidine 4 mg Tab: 8 mg = 2 tab(s), Oral, Bedtime, Refills(s) 0, Insomnia, Home Medications (25) Active aspirin 81 mg Oral EC Tab 81 mg = 1 tab(s), Oral, Daily atorvastatin 40 mg Tab biotin 1 tab(s), Oral, BID bisoprolol 10 mg Tab 10 mg = 1 tab(s), Oral, Daily calcium-vitamin D extended release 2 tab(s), Oral, qAM Colace 100 mg Cap 100 mg = 1 cap(s), PRN, Oral, BID dorzolamide-timolol Opth 2%-0.5% Ginette 1 drop(s), Eye-Both, BID doxepin 10 mg Cap 10 mg = 1 cap(s), Oral, Daily furosemide 40 mg Tab See Instructions Glucosamine Chondroitin oral capsule 1 cap, Oral, BID High Potency Probiotic oral capsule 1 cap, Oral, Daily isosorbide mononitrate 120 mg ER Tab 120 mg = 1 tab(s), Oral, qAM Klor Con 10 mEq Cap-ER 1 tab, Oral, BID latanoprost Opth 0.005% Ginette 1 drop(s), OPTH, Once a day (at bedtime) nitroglycerin 0.4 mg sublingual Tab 0.4 mg = 1 tab(s), PRN, SubLingual, q5min [place] 325 mg-5 mg oral tablet 1 tab(s), PRN, Oral, BID NuLYTELY Screven oral powder for reconstitution See Instructions omeprazole 20 mg, Oral, Daily pregabalin 150 mg Cap 150 mg = 1 cap(s), Oral, BID primidone 50 mg Tab 50 mg = 1 tab(s), Oral, Once a day (at bedtime) ranolazine 1000 mg oral tablet, extended release 1,000 mg = 1 tab(s), Oral, BID sertraline 100 mg Tab 100 mg = 1 tab(s), Oral, Daily Synthroid 125 mcg (0.125 mg) Tab 125 mcg, Oral, Daily tiZANidine 4 mg Tab 8 mg = 2 tab(s), Oral, Bedtime Vascepa 1 g oral capsule 2 gm = 2 cap(s), Oral, BID , Medications (1) Active Scheduled: (0) Continuous: (1) Sodium Chloride 0.9% 1,000 mL 1,000 mL, IV, 20 mL/hr PRN: (0) Problem list: All Problems Altered bowel habits / SNOMED CT 249593140 / Confirmed Arthritis / SNOMED CT 6162230 / Confirmed BMI 38.0-38.9,adult / SNOMED CT 033306648 / Confirmed C. difficile diarrhea / SNOMED CT 9301574588 / Confirmed Cellulitis of leg / SNOMED CT 1130045918 / Confirmed Chronic back pain / SNOMED CT 139348267 / Confirmed Chronic diastolic congestive heart failure / SNOMED CT 4051238157 / Confirmed Added per outpatient CDI policy based on Betty report Hypertensive heart disease with heart failure (I11.0) Persistent (Historical Claim) ??? Sep 02, 2023 ??? [facility], Heart ??? Heart Failure, Except End-Stage and Acute and 09/12/2022 [facility]- [id number] chronic diastolic heart failure and 07/06/2024 [place] consult- anxiety and depression, iron deficiency anemia, CKD 3, PFTs 01/25/2021 moderate obstruction on spirometry without a bronchodilator response, elevated RV suggests air trapping, mildly reduced diffusion capacity, overall stufy compatible with moderate emphysema, [place] diastolic heart failure (page 4), coronary artery disease involving k[place] coronary artery of k[place]ock heart with other form of angina pectoris [id number] Chronic kidney disease, stage 3a / SNOMED CT 2054333009 / Confirmed Added per Dr. Cordova query response and outpatient CDI policy based on: Betty report- Chronic kidney disease, stage 3b (N18.32) Persistent (Historical Claim) ??? Jan 06, 2024 ??? [facility] Kidney ??? Chronic Kidney Disease, Moderate (Stage 3B) Labs- 09/12/2022 eGFR 49, 10/31/2021 eGFR 49, 07/04/2019 eGFR 55, 11/24/2018 eGFR 49 07/06/2024 [facility] consult- anxiety and depression, iron deficiency anemia, CKD 3 Chronic obstructive pulmonary disease / SNOMED CT 599980024 / Confirmed Added per outpatient CDI policy based on: [facility] Chronic obstructive pulmonary disease, unspecified (J44.9) Persistent (Historical Claim) ??? Sep 02, 2023 ??? [facility], Lung ??? Chronic Obstructive Pulmonary Disease, Interstitial Lung Disorders, and Other Chronic Lung Disorders 07/06/2024 [facility] consult- anxiety and depression, iron deficiency anemia, CKD 3, PFTs 01/25/2021 moderate obstruction on spirometry without a bronchodilator response, elevated RV suggests air trapping, mildly reduced diffusion capacity, overall stufy compatible with moderate emphysema, [place] diastolic heart failure (page 4), coronary artery disease involving k[place]ock coronary artery of [place] heart with other form of angina pectoris [id number] 04/30/2022 H&P- CHF, HTN, emphysema or COPD Depression / SNOMED CT 02682148 / Confirmed Former smoker / SNOMED CT 85026972 / Confirmed Glaucoma / SNOMED CT 51297685 / Confirmed H/O hematuria / SNOMED CT 0373814442 / Confirmed Heart disease / SNOMED CT 99776922 / Confirmed Hx of basal cell carcinoma / SNOMED CT 4467632465 / Confirmed Hx of thyroid cancer / SNOMED CT 7562259640 / Confirmed Hyperlipidemia / SNOMED CT 99849843 / Confirmed Hypertension / SNOMED CT 0577418115 / Confirmed Hypertensive heart and kidney disease with heart failure / SNOMED CT 3284113809 / Confirmed Linked per outpatient CDI policy. Hypothyroid / SNOMED CT 67460771 / Confirmed Incontinence / SNOMED CT 13609064 / Confirmed Iron deficiency anemia / SNOMED CT 651985177 / Confirmed Noted in 07/06/2024 [facility] consultation note and added per outpatient CDI policy Kidney stones / SNOMED CT 307087827 / Confirmed Long-term current use of opiate analgesic drug / SNOMED CT 875757449217007 / Confirmed Added secondary to current Opioid Treatment Agreement Obesity (BMI 30-39.9) / SNOMED CT 056303122 / Confirmed Osteoarthritis / SNOMED CT 3626326071 / Confirmed Renal mass / SNOMED CT 243501299 / Confirmed S/P cholecystectomy / SNOMED CT 8239528031 / Confirmed SK (seborrheic keratosis) / SNOMED CT 3506024868 / Confirmed Skin cancer / SNOMED CT 7821036989 / Confirmed Sleep apnea / SNOMED CT 095997247 / Confirmed Smoker / SNOMED CT 331813457 / Confirmed Added secondary to documentation in Social History. SOB (shortness of breath) / SNOMED CT 368941832 / Confirmed Thyroid cancer / SNOMED CT 494896654 / Confirmed Resolved: Anxiety / SNOMED CT 97748218 Resolved: Arthritis / SNOMED CT 0294107 Resolved: At risk for falls / SNOMED CT 272251705 Problem added when Risk for Falls Careplan was initiated. Resolved due to patient discharge. Resolved: At risk for falls / SNOMED CT 879043007 Problem added when Risk for Falls Careplan was initiated. Resolved due to patient discharge. Resolved: Carpal tunnel / SNOMED CT 005829168 Resolved: Hypotension / SNOMED CT 77868477 Resolved: Liver disease / SNOMED CT 074629683 Resolved: Microscopic hematuria / SNOMED CT 229344592 Resolved: Osteopenia / SNOMED CT 708324110 Resolved: Thyroid cancer / SNOMED CT 6570202922 Resolved: Trigeminal neuralgia of left side of face / SNOMED CT 65574380 Canceled: Abnormal kidney function / SNOMED CT 88914623 Canceled: Anemia / SNOMED CT 776573775 Canceled: Anemia / SNOMED CT 467865762 Canceled: At risk for falls / SNOMED CT 182247569 Problem added when Risk for Falls Careplan was initiated. Resolved due to patient discharge. Canceled: At risk for falls / SNOMED CT 922464831 Problem added when Risk for Falls Careplan was initiated. Canceled: BMI 35.0-35.9,adult / SNOMED CT 482509220 Canceled: BMI 37.0-37.9, adult / SNOMED CT 840452666 Canceled: Cancer, uterine / SNOMED CT 9792841881 Canceled: Depression / SNOMED CT 36582482 Canceled: Hematoma / SNOMED CT 1922910675 Canceled: Hematuria / SNOMED CT 280521872 Canceled: HTN (hypertension) / SNOMED CT 5304585154 Canceled: Impaired skin integrity / SNOMED CT 65969192 Problem added on documentation of skin impairments. Resolved due to patient discharge. Canceled: Smoker / IMO [id number] Added secondary to documentation in Social History. Canceled: Smoker / SNOMED CT 34278874 Added secondary to documentation in Social History. Canceled: Thyroid nodule / SNOMED CT 402547144, Active Problems (34) Altered bowel habits Arthritis BMI 38.0-38.9,adult C. difficile diarrhea Cellulitis of leg Chronic back pain Chronic diastolic congestive heart failure Chronic kidney disease, stage 3a Chronic obstructive pulmonary disease Depression Former smoker Glaucoma H/O hematuria Heart disease Hx of basal cell carcinoma Hx of thyroid cancer Hyperlipidemia Hypertension Hypertensive heart and kidney disease with heart failure Hypothyroid Incontinence Iron deficiency anemia Kidney stones Long-term current use of opiate analgesic drug Obesity (BMI 30-39.9) Osteoarthritis Renal mass S/P cholecystectomy SK (seborrheic keratosis) Skin cancer Sleep apnea Smoker SOB (shortness of breath) Thyroid cancer Histories Past Medical History: Active Thyroid cancer (738353813) Resolved Arthritis (1159336): Resolved. Anxiety (89796984): Resolved. Trigeminal neuralgia of left side of face (16881339): Resolved. Osteopenia (045443145): Resolved. Hypotension (62678726): Resolved. Thyroid cancer (8235923976): Resolved. Carpal tunnel (824004975): Resolved. Liver disease (410952633): Resolved. Microscopic hematuria (315542700): Resolved. Family History: Hypertension Mother Primary malignant neoplasm of female genital organ Mother Heart failure Mother Arthritis Mother Hyperlipidemia Mother Procedure history: Radiofrequency ablation of nerve root of lumbar spine using fluoroscopic guidance ([id number]) on 05/02/2024 at 74 Years. Comments: 06/03/2024 14:02 Antoinette Wood RN Covering L4-S1 facet joints Skin cancer, Basel cell removal ([id number]) on 02/04/2024 at 74 Years. Comments: 04/05/2024 13:33 Denisse Jovel RN Left shoulder blade Glaucoma drainage surgery ([id number]) on 01/04/2024 at 73 Years. Bilateral L3-5 Medial Branch Blocks ([id number]) on 09/02/2023 at 73 Years. Comments: 09/16/2023 14:42 Antoinette Cortes RN 85% relief for 4 hrs Injection of facet joint using fluoroscopic guidance ([id number]) on 07/15/2023 at 73 Years. Comments: 07/23/2023 15:02 Denisse Garcia RN 80% relief for 2 hours 07/23/2023 13:49 Ericka Duke RN bilateral L4-S1 50% relief Epidural injection of lumbar spine using fluoroscopic guidance ([id number]) on 01/21/2023 at 72 Years. Comments: 02/12/2023 12:36 Ericka Duke RN L5-S1 30% relief Epidural injection of lumbar spine using fluoroscopic guidance ([id number]) on 04/30/2022 at 72 Years. Comments: 06/02/2022 12:54 Denisse Jovel RN L5/S1-50% relief ESWL - Extracorporeal shockwave lithotripsy for renal calculus ([id number]) on 11/07/2021 at 71 Years. ALINA L5/S1 ([id number]) on 10/23/2021 at 71 Years. Comments: 11/21/2021 15:36 Katelynn Meng RN L5/S1 60% relief Cystoscope ([id number]) on 04/29/2021 at 71 Years. Bilateral L3-L5 RFA ([id number]) on 04/10/2021 at 71 Years. Comments: 05/31/2021 12:43 Katelynn Moscoso RN L3-L5 20% relief Injection of nerve root of lumbar spine using fluoroscopic guidance ([id number]) on 05/16/2020 at 70 Years. Comments: 06/07/2020 9:51 Ericka Horton RN Bilatateral L5- 20% relief Radiofrequency ablation of medial branch of lumbar nerve using fluoroscopic guidance ([id number]) on 01/25/2020 at 69 Years. Comments: 02/23/2020 11:08 EDT - Tristan [employer] Statistical Financial Analyst., Charline B/L S1-S3 RFA 35% relief Injection of sacroiliac joint using fluoroscopic guidance ([id number]) on 11/30/2019 at 69 Years. Comments: 12/29/2019 11:39 EDT - Tristan [employer] Statistical Financial Analyst., Charline B/L SIJI right 20% left 20% Radiofrequency ablation of medial branch of lumbar nerve using fluoroscopic guidance ([id number]) on 10/05/2019 at 69 Years. Comments: 11/09/2019 13:45 EDT - Tristan [employer] Statistical Financial Analyst., Charline B/L L3-L4 RFA 80% relief that continues Laminectomy ([id number]) on 06/28/2019 at 69 Years. Comments: 06/28/2019 17:28 Sehrlyn Medina RN CERVICAL FUSION POSTERIOR, C3-T1 Injection of sacroiliac joint using fluoroscopic guidance ([id number]) on 04/27/2019 at 69 Years. Comments: 05/26/2019 14:44 EST - Day RMA, Xuan L B/L 60% to present Radiofrequency ablation of medial branch of lumbar nerve using fluoroscopic guidance ([id number]) on 03/16/2019 at 69 Years. Comments: 04/14/2019 13:03 EST - Day RMA, Xuan L B/L L3-S1 55% relief Injection of sacroiliac joint using fluoroscopic guidance ([id number]) on 01/19/2019 at 68 Years. Comments: 02/10/2019 13:02 EDT - Ramirez CUEVA, Denisse B/L 75% relief Partial substernal thyroidectomy ([id number]) on 12/09/2018 at 68 Years. Comments: 12/09/2018 15:02 EDT - Agustina RN, BSN, Malena R right Injection of sacroiliac joint using fluoroscopic guidance ([id number]) on 08/04/2018 at 68 Years. Comments: 08/26/2018 13:19 Kayla Hagan RN 65% relief to present Arthroplasty of knee ([id number]) on 06/01/2018 at 68 Years. Comments: 06/01/2018 12:33 Sherlyn Medina RN RIGHT Injection of sacroiliac joint using fluoroscopic guidance ([id number]) on 01/06/2018 at 67 Years. Comments: 02/04/2018 13:17 JULISA Ward RN, Mariangel bilateral SJI 65% relief Radiofrequency ablation of medial branch of lumbar nerve using fluoroscopic guidance ([id number]) on 09/16/2017 at 67 Years. Comments: 10/21/2017 11:23 JULISA Worley RN, Kayla bilat L2-L5 MB RFA- 50% relief at time of OV Injection of sacroiliac joint using fluoroscopic guidance ([id number]) on 08/05/2017 at 67 Years. Comments: 09/03/2017 13:27 Rachna Calle RN b/l reallly no change in back pain approx 100 %relief on right buttock pain approx 70 % relief left buttock pain Total knee arthroplasty b/l ([id number]) on 06/08/2017 at 67 Years. Comments: 06/08/2017 14:20 Sherlyn Camarena RN Left. 06/08/2017 14:20 Sherlyn Camarena RN KNEE TOTAL ARTHROPLASTY sacroiliac joint injection on 04/01/2017 at 67 Years. Comments: 04/30/2017 13:39 Teena Arteaga RN B/Jenny 40% relief Gel shots in left knee on 12/09/2016 at 66 Years. Comments: 02/05/2017 13:14 EDT - [facility] Senior [employer] Rigo A 3 times 0% relief Radiofrequency ablation of medial branch of lumbar nerve using fluoroscopic guidance ([id number]) on 11/12/2016 at 66 Years. Comments: 12/08/2016 13:21 Rachna Calle RN Right L2-L5 30 % relief after 2 weeks Radiofrequency ablation of medial branch of lumbar nerve using fluoroscopic guidance ([id number]) on 10/29/2016 at 66 Years. Comments: 12/08/2016 13:21 Rachna Calle RN left 30 % relief immediate Injection of facet joint using fluoroscopic guidance ([id number]) on 09/17/2016 at 66 Years. Comments: 10/09/2016 15:43 Denisse Garcia RN 70% relief for 2 hours still has 305 relief 10/09/2016 15:33 Denisse Garcia RN B/L L3-S1 Injection into facet joint of lumbar spine using fluoroscopic guidance ([id number]) on 06/04/2016 at 66 Years. Comments: 06/26/2016 14:22 Asmita Momin RN B/L L3-S1 70% relief to present Injection of sacroiliac joint using fluoroscopic guidance ([id number]) on 02/27/2016 at 66 Years. Comments: 03/27/2016 14:24 Denisse Jovel RN 60% relief for 4 days 03/27/2016 14:16 Denisse Jovel RN B/L Injection of sacroiliac joint using fluoroscopic guidance ([id number]) on 11/21/2015 at 65 Years. Comments: 12/13/2015 10:15 Mariangel Lemus RN bilateral 60% relief andd still working Hysterectomy ([id number]). Cholecystectomy ([id number]). Appendectomy ([id number]). Thyroidectomy ([id number]). Injection of nerve root of lumbar spine using fluoroscopic guidance ([id number]). Comments: 04/26/2020 8:46 SENA Fay RN, Ericka Chang bilateal L4- 40% relief Arthroplasty of knee ([id number]). Skin cancer removal ([id number]). Comments: 02/05/2024 10:00 Charline Guaman 2023 Glaucoma surgery ([id number]). Comments: 02/05/2024 10:01 Charline Guaman 2023 Cataract ([id number]). Colonoscopy ([id number]). Comments: 01/02/2025 13:38 Radha Hernandez around 5 years ago Social History Social & Psychosocial Habits Alcohol 01/02/2025 Frequency: 1-2 times per year 01/02/2025 Risk Assessment: Denies Alcohol Use Substance Abuse 01/02/2025 Risk Assessment: Denies Substance Abuse Comment: denies - 07/01/2019 08:11 Christofer Patel RN Tobacco 01/02/2025 Risk Assessment: Denies Tobacco Use 01/02/2025 Tobacco Use: 4 or less cigarettes(less Smokeless tobacco use: Never Type: Cigarettes Concerns about tobacco use in household: No Smoking Cessation Yes Comment: pt states dose one ciggerette a night - 10/20/2023 14:40 - Chad Royal MA Physical Examination No qualifying data available Airway: Mallampati classification: II (soft palate, fauces, uvula visible), loose upper left tooth. Respiratory: Lungs are clear to auscultation, Respirations are non-labored, adequate air exchange. Cardiovascular: Regular rhythm, No murmur, 2+ bilateral radial pulses, no peripheral edema, no JVD. Review / Management Results review: No qualifying data available . Plan [place] [employer] (ASA) physical status classification: Class III. Anesthetic Preoperative Plan: Anesthesia General. Result Comment: Electronical ly Signed By: Aniket SOMMERS, John Grant\.br\Date and Time Signed: 01/11/25 12:38 EDT AMBULATORY VISIT SUMMARY Observed: 01/02 1:00 PM Status: F Source: [facility] Ambulatory Visit Summary DIANN LINDER :1950 Visit Date:01/02/2025 Ambulatory Visit Instructions Your Diagnosis Screen for colon cancer Incontinence Altered bowel habits S/P cholecystectomy Your Care Team Attending Physician - Blake Toledo MD Primary Care Physician - JORDEN BERRIOS CNP This Is Your Medications List Contact prescribing physician if questions or concerns acetaminophen-hydrocodone ([place] 325 mg-5 mg oral tablet) ascorbic acid/chondroitin/glucosa/jayson (Glucosamine Chondroitin oral capsule) aspirin (aspirin 81 mg Oral EC Tab) atorvastatin (atorvastatin 40 mg Tab) bifidobacterium/lactobacillus/streptococcus (High Potency Probiotic oral capsule) biotin bisoprolol (bisoprolol 10 mg Tab) calcium-vitamin D (calcium-vitamin D extended release) docusate (Colace 100 mg Cap) dorzolamide-timolol ophthalmic (dorzolamide-timolol Opth 2%-0.5% Ginette) doxepin (doxepin 10 mg Cap) furosemide (furosemide 40 mg Tab) icosapent (Vascepa 1 g oral capsule) isosorbide mononitrate (isosorbide mononitrate 120 mg ER Tab) latanoprost ophthalmic (latanoprost Opth 0.005% Ginette) levothyroxine (Synthroid 125 mcg (0.125 mg) Tab) nitroglycerin (nitroglycerin 0.4 mg sublingual Tab) omeprazole potassium chloride (Klor Con 10 mEq Cap-ER) pregabalin (pregabalin 150 mg Cap) primidone (primidone 50 mg Tab) ranolazine (ranolazine 1000 mg oral tablet, extended release) sertraline (sertraline 100 mg Tab) tizanidine (tiZANidine 4 mg Tab) Procedures Performed Radiofrequency ablation of nerve root of lumbar spine using fluoroscopic guidance (05/02/2024), Skin cancer (02/04/2024), Glaucoma drainage surgery (01/04/2024), Injection of facet joint using fluoroscopic guidance (09/02/2023), Injection of facet joint using fluoroscopic guidance (07/15/2023), Epidural injection of lumbar spine using fluoroscopic guidance (01/21/2023), Epidural injection of lumbar spine using fluoroscopic [...] fluoroscopic guidance (11/21/2015), Appendectomy, Arthroplasty of knee, Cancer of skin, Cataract, Cholecystectomy, Colonoscopy, Glaucoma surgery, Hysterectomy, Injection of nerve root of lumbar spine using fluoroscopic guidance, Thyroidectomy. Discharge Vitals Heart Rate (Peripheral) 61 Blood Pressure 139/74 Height 158 cm Height 62 in Weight 96.6 kg Weight 212.966 lb BMI 38.7 What to do next Scheduled Follow-Up Appointments Thursday 1:45 PM EDT With: Indiana Walsh PA-C [facility] Thursday 2:30 PM EDT With: Where: [address] [address]24 1:20 PM EST With: JORDEN BERRIOS CNP Where: [address] [address]- Medications What How Much When Why Instructions Unchanged acetaminophen-hydrocodone ([place] 325 mg-5 mg oral tablet) 1 Tablets By Mouth 2 times a day as needed for as needed for pain Back pain, chronic Contact prescribing physician if questions or concerns Unchanged ascorbic acid/ chondroitin/ glucosa/ jayson (Glucosamine Chondroitin oral capsule) 1 cap By Mouth 2 times a day Contact prescribing physician if questions or concerns Unchanged aspirin (aspirin 81 mg Oral EC Tab) 1 Tablets By Mouth Every day Contact prescribing physician if questions or concerns Unchanged atorvastatin (atorvastatin 40 mg Tab) Contact prescribing physician if questions or concerns Unchanged bifidobacterium/ lactobacillus/ streptococcus (High Potency Probiotic oral capsule) 1 cap By Mouth Every day Contact prescribing physician if questions or concerns Unchanged biotin 1 Tablets By Mouth 2 times a day Contact prescribing physician if questions or concerns Unchanged bisoprolol (bisoprolol 10 mg Tab) 1 Tablets By Mouth Every day Contact prescribing physician if questions or concerns Unchanged calcium-vitamin D (calcium-vitamin D extended release) 2 Tablets By Mouth Once a day (in the morning) Contact prescribing physician if questions or concerns Unchanged docusate (Colace 100 mg Cap) 1 Capsules By Mouth 2 times a day as needed for for constipation Contact prescribing physician if questions or concerns Unchanged dorzolamide-timolol ophthalmic (dorzolamide-timolol Opth 2%-0.5% Ginette) 1 Drops Both eyes 2 times a day Contact prescribing physician if questions or concerns Unchanged doxepin (doxepin 10 mg Cap) 1 Capsules By Mouth Every day Contact prescribing physician if questions or concerns Unchanged furosemide (furosemide 40 mg Tab) See instructions Takes 20mg every other day and then 40mg on the other days Contact prescribing physician if questions or concerns Unchanged icosapent (Vascepa 1 g oral capsule) 2 Capsules By Mouth 2 times a day Contact prescribing physician if questions or concerns Unchanged isosorbide mononitrate (isosorbide mononitrate 120 mg ER Tab) 1 Tablets By Mouth Once a day (in the morning) Contact prescribing physician if questions or concerns Unchanged latanoprost ophthalmic (latanoprost Opth 0.005% Ginette) 1 Drops Ophthalmic Once a day (at bedtime) Contact prescribing physician if questions or concerns Unchanged levothyroxine (Synthroid 125 mcg (0.125 mg) Tab) 125 Microgram By Mouth Every day Contact prescribing physician if questions or concerns Unchanged nitroglycerin (nitroglycerin 0.4 mg sublingual Tab) 1 Tablets Sublingual Every 5 minutes as needed for for chest pain Contact prescribing physician if questions or concerns Unchanged omeprazole 20 Milligram By Mouth Every day Contact prescribing physician if questions or concerns Unchanged potassium chloride (Klor Con 10 mEq Cap-ER) 1 tab By Mouth 2 times a day Contact prescribing physician if questions or concerns Unchanged pregabalin (pregabalin 150 mg Cap) 1 Capsules By Mouth 2 times a day Failed back syndrome Duration: 90 Days Contact prescribing physician if questions or concerns Unchanged primidone (primidone 50 mg Tab) 1 Tablets By Mouth Once a day (at bedtime) Contact prescribing physician if questions or concerns Unchanged ranolazine (ranolazine 1000 mg oral tablet, extended release) 1 Tablets By Mouth 2 times a day TAKE 1 TABLET BY MOUTH TWO TIMES A DAY Contact prescribing physician if questions or concerns Unchanged sertraline (sertraline 100 mg Tab) 1 Tablets By Mouth Every day UTI (urinary tract infection) Depression Former smoker Obesity (BMI 30-39.9) Contact prescribing physician if questions or concerns Unchanged tizanidine (tiZANidine 4 mg Tab) 2 Tablets By Mouth At bedtime Contact prescribing physician if questions or concerns Allergies amoxicillin (Hives) Problems Ongoing - Any problem that you are currently receiving treatment for. Altered bowel habits Arthritis BMI 38.0-38.9,adult C. difficile diarrhea Cellulitis of leg Chronic diastolic congestive heart failure Chronic kidney disease, stage 3a Chronic obstructive pulmonary disease Depression Former smoker Glaucoma H/O hematuria Heart disease Hx of basal cell carcinoma Hx of thyroid cancer Hyperlipidemia Hypertension Hypertensive heart and kidney disease with heart failure Hypothyroid Incontinence Iron deficiency anemia Kidney stones Long-term current use of opiate analgesic drug Obesity (BMI 30-39.9) Renal mass S/P cholecystectomy SK (seborrheic keratosis) Skin cancer Sleep apnea Smoker SOB (shortness of breath) Thyroid cancer Historical - Any problem that you are no longer receiving treatment for. Anxiety Arthritis Carpal tunnel Hypotension Liver disease Microscopic hematuria Osteopenia Thyroid cancer Trigeminal neuralgia of left side of face Patient Survey You may receive a survey via text or e-mail asking about your office visit. Please share your experience with us by completing your survey. We appreciate your feedback and thank you for choosing us for your care. Patient Portal You may access all of your results and other medical record information on our secure patient portal. If you are not signed up for this yet, please contact [employer] at [phone] to get signed up today. Language Information Language assistance services are available as needed. GASTROENTEROLOGY OFFICE/CLIN IC NOTE Observed: 01/02/2025 1:00 PM Status: F Source: [facility] Gastroenterology Office/Clin ic Note Chief Complaint Constipation- referred for colonoscopy. [place] [facility] [place] HPI Staff This is a 74 year old female who presents today for a screening colonoscopy. Patient thought that her last colonoscopy was around 5 years ago [place] [facility] [place]. Patient c/o constipation Denies Blood Thinners Denies GLP-1 Agonists Denies any family history of colon cancer/polyps or IBD Denies Dysphagia, abdominal pain, constipation, diarrhea or bloody stools. Denies any previous EGD Denies recent imaging or labs History of Present Illness I have reviewed HPI staff note, most recent labs and imaging, I agree with the above documentation with the following additions/exceptions : PT with no GI symptoms other than loose stool the whole life getting constipation in the last 6 months with some hemorrhoids on colace pt with some incontinence likely pseudo-diarrhea Review of Systems PHQ Score Initial Depression Screen Score: 0 SCORE All systems reviewed, negative except as mentioned above Physical Exam Vitals & Measurements HR: 61(Peripheral) BP: 139/74 HT: 158 cm HT: 62 in WT: 96.6 kg WT: 212.966 lb BMI: 38.7 General: alert, no acute distress HEENT: atraumatic normocephalic Cardiovascular: regular rate and rhythm, normal peripheral perfusion Respiratory: Lungs CTA, respirations non labored Extremities: no deformity, no trauma Abdomen: Benign, soft, nontender nondistended Assessment/Plan 1. Screen for colon cancer (Z12.11: Encounter for screening for malignant neoplasm of colon) Ordered: Colonoscopy (Hospital Procedure) Colonoscopy (Hospital Procedure) Colonoscopy (Hospital Procedure) Current tobacco smoker 1034F Most recent diastolic blood pressure <80 mm Hg 3078F Systolic BP 130-139 mm Hg (Most Recent) 3075F 2. Incontinence (R32: Unspecified urinary incontinence) Ordered: Colonoscopy (Hospital Procedure) Colonoscopy (Hospital Procedure) 3. Altered bowel habits (R19.4: Change in bowel habit) Ordered: Colonoscopy (Hospital Procedure) Colonoscopy (Hospital Procedure) 4. S/P cholecystectomy (Z90.49: Acquired absence of other specified parts of digestive tract) Ordered: Colonoscopy (Hospital Procedure) Colonoscopy (Hospital Procedure) Schedule colonoscopy with random colon biopsies and TI evaluation Advised to use squatty potty and massage the colon Advised to eat prunes and kiwi fruit Advised to use miralax/senna and titrate to have 1-2 BM daily Follow-up No qualifying data available Problem List/Past Medical History Ongoing Altered bowel habits Arthritis BMI 38.0-38.9,adult C. difficile diarrhea Cellulitis of leg Chronic diastolic congestive heart failure Chronic kidney disease, stage 3a Chronic obstructive pulmonary disease Depression Former smoker Glaucoma H/O hematuria Heart disease Hx of basal cell carcinoma Hx of thyroid cancer Hyperlipidemia Hypertension Hypertensive heart and kidney disease with heart failure Hypothyroid Incontinence Iron deficiency anemia Kidney stones Long-term current use of opiate analgesic drug Obesity (BMI 30-39.9) Renal mass S/P cholecystectomy SK (seborrheic keratosis) Skin cancer Sleep apnea Smoker SOB (shortness of breath) Thyroid cancer Historical Anxiety Arthritis Carpal tunnel Hypotension Liver disease Microscopic hematuria Osteopenia Thyroid cancer Trigeminal neuralgia of left side of face Procedure/Surgical History Radiofrequency ablation of nerve root of lumbar spine using fluoroscopic guidance (05/02/2024), Skin cancer (02/04/2024), Glaucoma drainage surgery (01/04/2024), Injection of facet joint using fluoroscopic guidance (09/02/2023), Injection of facet joint using fluoroscopic guidance (07/15/2023), Epidural injection of lumbar spine using fluoroscopic guidance (01/21/2023), Epidural injection of lumbar spine using fluoroscopic [...] fluoroscopic guidance (11/21/2015), Appendectomy, Arthroplasty of knee, Cancer of skin, Cataract, Cholecystectomy, Colonoscopy, Glaucoma surgery, Hysterectomy, Injection of nerve root of lumbar spine using fluoroscopic guidance, Thyroidectomy. Medications aspirin 81 mg Oral EC Tab, 81 mg= 1 tab(s), Oral, Daily atorvastatin 40 mg Tab biotin, 1 tab(s), Oral, BID bisoprolol 10 mg Tab, 10 mg= 1 tab(s), Oral, Daily calcium-vitamin D extended release, 2 tab(s), Oral, qAM Colace 100 mg Cap, 100 mg= 1 cap(s), Oral, BID, PRN dorzolamide-timolol Opth 2%-0.5% Ginette, 1 drop(s), Eye-Both, BID doxepin 10 mg Cap, 10 mg= 1 cap(s), Oral, Daily furosemide 40 mg Tab, See Instructions Glucosamine Chondroitin oral capsule, 1 cap, Oral, BID High Potency Probiotic oral capsule, 1 cap, Oral, Daily isosorbide mononitrate 120 mg ER Tab, 120 mg= 1 tab(s), Oral, qAM Klor Con 10 mEq Cap-ER, 1 tab, Oral, BID, 4 refills latanoprost Opth 0.005% Ginette, 1 drop(s), OPTH, Once a day (at bedtime) nitroglycerin 0.4 mg sublingual Tab, 0.4 mg= 1 tab(s), SubLingual, q5min, PRN [place] 325 mg-5 mg oral tablet, 1 tab(s), Oral, BID, PRN omeprazole, 20 mg, Oral, Daily pregabalin 150 mg Cap, 150 mg= 1 cap(s), Oral, BID primidone 50 mg Tab, 50 mg= 1 tab(s), Oral, Once a day (at bedtime) ranolazine 1000 mg oral tablet, extended release, 1000 mg= 1 tab(s), Oral, BID sertraline 100 mg Tab, 100 mg= 1 tab(s), Oral, Daily, 1 refills Synthroid 125 mcg (0.125 mg) Tab, 125 mcg, Oral, Daily, 1 refills tiZANidine 4 mg Tab, 8 mg= 2 tab(s), Oral, Bedtime Vascepa 1 g oral capsule, 2 gm= 2 cap(s), Oral, BID Allergies amoxicillin (Hives) Social History Alcohol - Denies Alcohol Use, 06/10/2022 1-2 times per year, 06/17/2019 Substance Abuse - Denies Substance Abuse, 10/25/2015 Tobacco - Denies Tobacco Use, 10/31/2021 4 or less cigarettes(less than 1/4 pack)/day in last 30 days Tobacco Use:. Never Smokeless Tobacco Use:. Cigarettes, Household tobacco concerns: No. Yes, 01/02/2025 Family History Arthritis: Mother. Congenital heart disease: Negative: Mother. Heart failure: Mother. Hyperlipidemia: Mother. Hypertension: Mother. Primary malignant neoplasm of female genital organ: Mother. Immunizations Vaccine Date Status influenza virus vaccine, inactivated 03/03/2023 Recorded SARS-CoV-2 (COVID-19) [id number] 04/17/2022 Recorded influenza virus vaccine, inactivated 02/15/2022 Recorded SARS-CoV-2 (COVID-19) mRNA BNT-162b2 vax 05/15/2021 Recorded influenza virus vaccine, inactivated 04/27/2021 Recorded SARS-CoV-2 (COVID-19) mRNA BNT-162b2 vax 08/07/2020 Recorded SARS-CoV-2 (COVID-19) mRNA BNT-162b2 vax 07/16/2020 Recorded SARS-CoV-2 (COVID-19) mRNA BNT-162b2 vax 07/2020 Recorded SARS-CoV-2 (COVID-19) mRNA BNT-162b2 vax 06/2020 Recorded pneumococcal 23-valent vaccine 02/26/2019 Recorded influenza virus vaccine, inactivated 02/26/2019 Recorded influenza virus vaccine, inactivated 02/21/2019 Recorded pneumococcal 23-valent vaccine 02/17/2018 Recorded pneumococcal 13-valent vaccine 02/09/2018 Recorded influenza virus vaccine, inactivated 02/09/2018 Recorded influenza virus vaccine, inactivated 02/08/2017 Recorded influenza virus vaccine, inactivated 03/12/2015 Recorded influenza virus vaccine, inactivated 03/23/2014 Recorded pneumococcal 23-valent vaccine 03/10/2003 Recorded Result Comment: Electronical ly Signed By: Tre SOMMERS, Blake Castro.br\Date and Time Signed: 01/02/25 13:52 EDT URINE CULTURE, ROUTINE Collected: 12/21 11:13 AM Status: UNK Source: [facility] TYPE CODE TESTS RESULT OUT OF RANGE REFERENCE UNITS LAB [id number] URINE CULTURE <10,000 CFU/ML No Significant Growth Performed By: #### [id number] ## ## [facility] [address] [place] [address] XR ABDOMEN 1 VIEW Observed: 12/20/2024 3:07 PM Status: UNK Source: [facility] XR ABDOMEN 1 VIEW 12/20/2024 3:11 PM CLINICAL INDICATIONS: Kidney stone. Follow-up exam COMPARISON: None FINDINGS: Supine views of the abdomen and pelvis. Lung bases are clear. S-shaped thoracolumbar scoliosis with bony spurring suggesting spondylosis. Oval radiopacities are seen at the expected location of the right and left kidney lower pole which may represent radiopaque inferior pole renal stones versus radiopaque pills within bowel loops. Metallic clips in the right upper quadrant from prior surgery. Calcified phleboliths in the pelvis bilaterally. IMPRESSION: Possible radiopaque pills in the bowel loops versus large radiopaque inferior pole bilateral renal stones and CT can be obtained for confirmation. Electronically signed: Jaya Washington MD. FOLLOW-UP Observed: 12/20/2024 3:00 PM Status: COMPLETED Source: [facility] [id number] Diann Linder [birth year] F Date Provider Department Center 12/20/2024 STAN GALINDO [facility] Family History Problem Relation Age of Onset Heart failure Mother Family Status - Relation Status Age at Mother Level of Service:57056 [place] OFFICE[facility]PATIENT NEW [facility] 60 MINUTES Reason for Visit and Comments: Follow-up [393463] New Patient [[id number]] PROGRESS Observed: 12/20/2024 3:00 PM Status: COMPLETED Source: [facility] Department of Urology HISTORY & PHYSICAL HPI This is a pleasant Diann Linder is a 74 y.o. year old female patient with nephrolithiasis who is here today for evaluation. ## HPI S: Subjective The patient is a female presenting for evaluation of lower urinary tract symptoms (LUTS) and bilateral renal stones diagnosed approximately one year ago. She reports being unable to pursue treatment due to other health issues. A CT scan performed on November 07, 2024, revealed bilateral large renal stones, each measuring approximately 3-4 cm x 2.5 cm, located in the renal pelvis. The patient expresses concern about the stones and their impact on her quality of life. ### SUBJECTIVE: Intermittent left flank pain History of stones for years She is aware of the stones for more than 2 years. #### OBJECTIVE: Wt 93.4 kg (206 lb) BMI 37.68 kg/m??? CT scan results indicate bilateral large renal stones with significant size and location in the renal pelvis. No vital signs were provided during this encounter. Physical examination findings are not documented but should include assessment of abdominal tenderness or flank pain if applicable. ##### ASSESSPLAN@ Bilateral nephrolithiasis . Large renal stones with the presence of left proximal ureteral stone causing mild obstruction Due to her body built and her BMI would not go to be able to proceed with PCNL. We discussed about doing ureteroscopy and laser lithotripsy as an alternative. This still going to be difficult because of her posture and also because of the size of the stones however this will be the least invasive approach for the patient for this reason we will going to proceed with: Left ureteroscopy, laser lithotripsy for stone in the proximal left ureter and in the kidneys. We discussed that she may need to have more than 1 trip for every kidney for the time being we are going to proceed with the left side first as it was obstructed by the proximal left ureteral stone. Risks and benefits were discussed with the patient discussed treatment options will schedule for left ureteroscopy and stone manipulation, retrograde Pyelogram with stent exchange. discussed with the patient risks and benefits also discussed risks of infection also discussed risk of ureteral stent. explained potential complications include but not limited to urine extravasation, pain, burning, ureteral injury, UTI, blood in urine and may be difficulty voiding. also anesthesia complication may included but not limited to heart problems, lung problems, DVT, PE and possible stroke. These are extremely rare but still a risk that could happen. After the procedure, we will watch you for about 1-2 hours. If you are doing well, then will discharge you. There is a minimal chance that you go into sepsis and in this case, you will be admitted to receive IV antibiotics. Previous history of neurogenic bladder, urinary tract infection and urinary sepsis will place you at a higher risk of infection. She is at a higher risks of complication secondary to her PMH CHF sleep apnea and large bmi This will resultShe will increase anesthesia risks. She is going to have high risk of infection especially pulmonary infection and risks from an anesthesia because of the current situation. We discussed also about the DVT because of her general condition Medical History[1] Surgical History[2] Medication Documentation Review Audit Reviewed by Halle Hooper MA ([place]) on 08/31/24 at 1301 Medication Order Taking? Sig Documenting Provider Last Dose Status albuterol 90 mcg/actuation inhaler [id number] Yes Historical Provider, Taking Active alendronate (Fosamax) 35 mg tablet [id number] Yes Take 1 tablet every week by oral route for 84 days. Historical Provider, Taking Active aspirin 81 mg EC tablet [id number] Yes Take 1 tablet by mouth in the morning. Historical Provider, Taking Active atorvastatin (Lipitor) 40 mg tablet [id number] Yes TAKE 1 TABLET EVERY DAY Venkat Tobias MD Taking Active bisoprolol (Zebeta) 10 mg tablet [id number] Yes TAKE 1 TABLET EVERY DAY Venkat Tobias MD Taking Active doxepin (SINEquan) 10 mg capsule [id number] Yes TAKE 1 - 2 CAPSULES BY MOUTH EVERYDAY AT BEDTIME Abel Blackmon MD Taking Active furosemide (Lasix) 20 mg tablet [id number] Yes Take 1 tablet (20 mg) by mouth every other day. Aleta Wang CNP Taking Active furosemide (Lasix) 40 mg tablet [id number] Yes TAKE alternating 40mg and 20mg every other day Venkat Tobias MD Taking Active gabapentin (Neurontin) 300 mg capsule [id number] Yes Take 1 capsule by mouth in the morning and at bedtime. Abel Blackmon MD Taking Active HYDROcodone-acetaminophen (Valparaiso) 5-325 mg tablet [id number] Yes Take 1 tablet by mouth if needed in the morning and at bedtime. Abel Blackmon MD Taking Active icosapent ethyL (Vascepa) 1 gram capsule [id number] Yes Take 2 capsules (2 g) by mouth 2 times daily. Venkat Tobias MD Taking Active isosorbide mononitrate ER (Imdur) 120 mg 24 hr tablet [id number] Yes TAKE 1 TABLET ONE TIME DAILY DIRECTED (DO NOT CRUSH OR CHEW) Venkat Tobias MD Taking Active levothyroxine (Synthroid, Levoxyl) 125 mcg tablet [id number] Yes Take 125 mcg by mouth before breakfast. Abel Blackmon MD Taking Active nitroglycerin (Nitrostat) 0.4 mg SL tablet [id number] Yes Place 1 tablet (0.4 mg) under the tongue every 5 (five) minutes if needed for chest pain. May repeat dose every 5 minutes for up to 3 doses total. Venkat Tobias MD Taking Active omeprazole (PriLOSEC) [address] capsule [id number] Yes Take 1 tablet by mouth in the morning. Abel Blackmon MD Taking Active potassium chloride CR (Klor-Con M10) 10 mEq ER tablet [id number] Yes Take 10 mEq by mouth in the morning and at bedtime. Do not crush or chew. Abel Blackmon MD Taking Active primidone (Mysoline) 50 mg tablet [id number] Yes Take 25 mg by mouth. Historical Provider, Taking Active ranolazine (Ranexa) 1,000 mg 12 hr tablet [id number] Yes TAKE 1 TABLET BY MOUTH 2 TIMES A DAY in the morning and at bedtime Aleta Wang CNP Taking Active sertraline (Zoloft) 50 mg tablet [id number] Yes Take 1 tablet every day by oral route for 90 days. Historical Provider, Taking Active tiZANidine (Zanaflex) 4 mg tablet [id number] Yes Take 2 tablets every day by oral route for 90 days. Historical Provider, Taking Active Allergies[3] Review of Systems Physical Exam This note was created with the assistance of the speech recognition program. Although the intention is to create a document that actually reflects the content of the visit, however, there no guarantees or assurances can be provided that every mistake is been identified and corrected by editing. [1] Past Medical History: Diagnosis Date Anemia Cancer (CMS/HCC) CHF (congestive heart failure) ([facility]) Coronary artery disease Hyperlipidemia Hypertension Sleep apnea [2] Past Surgical History: Procedure Laterality Date CARDIAC CATHETERIZATION HYSTERECTOMY THYROIDECTOMY TOTAL KNEE ARTHROPLASTY [3] Allergies Allergen Reactions Amoxicillin Hives PATIENT EDUCATION Observed: 12/08/2024 3:51 PM Status: F Source: [facility] Patient Education Mental and Behavioral Health Managing Depression, Adult Depression is a mental health condition that affects your thoughts, feelings, and actions. Being diagnosed with depression can bring you relief if you did not know why you have felt or behaved a certain way. It could also leave you feeling overwhelmed. Finding ways to manage your symptoms can help you feel more positive about your future. How to manage lifestyle changes Being depressed is difficult. Depression can increase the level of everyday stress. Stress can make depression symptoms worse. You may believe your symptoms cannot be managed or will never improve. However, there are many things you can try to help manage your symptoms. There is hope. Managing stress Stress is your body's reaction to life changes and events, both good and bad. Stress can add to your feelings of depression. Learning to manage your stress can help lessen your feelings of depression. Try some of the following approaches to reducing your stress (stress reduction techniques): ??? Listen to music that you enjoy and that inspires you. ??? Try using a meditation martin or take a meditation class. ??? Develop a practice that helps you connect with your spiritual self. Walk in nature, pray, or go to a place of buddhism. ??? Practice deep breathing. To do this, inhale slowly through your nose. Pause at the top of your inhale for a few seconds and then exhale slowly, letting yourself relax. Repeat this three or four times. ??? Practice yoga to help relax and work your muscles. Choose a stress reduction technique that works for you. These techniques take time and practice to develop. Set aside 5?15 minutes a day to do them. Therapists can offer training in these techniques. Do these things to help manage stress: ??? Keep a journal. ??? Know your limits. Set healthy boundaries for yourself and others, such as saying no when you think something is too much. ??? Pay attention to how you react to certain situations. You may not be able to control everything, but you can change your reaction. ??? Add humor to your life by watching funny movies or shows. ??? Make time for activities that you enjoy and that relax you. ??? Spend less time using electronics, especially at night before bed. The light from screens can make your brain think it is time to get up rather than go to bed. Medicines Medicines, such as antidepressants, are often a part of treatment for depression. ??? Talk with your pharmacist or health care provider about all the medicines, supplements, and herbal products that you take, their possible side effects, and what medicines and other products are safe to take together. ??? Make sure to report any side effects you may have to your health care provider. Relationships Your health care provider may suggest family therapy, couples therapy, or individual therapy as part of your treatment. How to recognize changes Everyone responds differently to treatment for depression. As you recover from depression, you may start to: ??? Have more interest in doing activities. ??? Feel more hopeful. ??? Have more energy. ??? Eat a more regular amount of food. ??? Have better mental focus. It is important to recognize if your depression is not getting better or is getting worse. The symptoms you had in the beginning may return, such as: ??? Feeling tired. ??? Eating too much or too little. ??? Sleeping too much or too little. ??? Feeling restless, agitated, or hopeless. ??? Trouble focusing or making decisions. ??? Having unexplained aches and pains. ??? Feeling irritable, angry, or aggressive. If you or your family members notice these symptoms coming back, let your health care provider know right away. Follow these instructions at home: Activity ??? Try to get some form of exercise each day, such as walking. ??? Try yoga, mindfulness, or other stress reduction techniques. ??? Participate in group activities if you are able. Lifestyle ??? Get enough sleep. ??? Cut down on or stop using caffeine, tobacco, alcohol, and any other harmful substances. ??? Eat a healthy diet that includes plenty of vegetables, fruits, whole grains, low-fat dairy products, and lean protein. Limit foods that are high in solid fats, added sugar, or salt (sodium). General instructions ??? Take zovq-rfe-nusjtod and prescription medicines only as told by your health care provider. ??? Keep all follow-up visits. It is important for your health care provider to check on your mood, behavior, and medicines. Your health care provider may need to make changes to your treatment. Where to find support Talking to others Friends and family members can be sources of support and guidance. Talk to trusted friends or family members about your condition. Explain your symptoms and let them know that you are working with a health care provider to treat your depression. Tell friends and family how they can help. Finances ??? Find mental health providers that fit with your financial situation. ??? Talk with your health care provider if you are worried about access to food, housing, or medicine. ??? Call your insurance company to learn about your co-pays and prescription plan. Where to find more information You can find support in your area from: ??? Anxiety and Depression Association of [place] (ADAA): adaa.org ??? Mental Health [place]: mentalhealthamerica.net ??? National [place] on Mental Illness: eloy.org Contact a health care provider if: ??? You stop taking your antidepressant medicines, and you have any of these symptoms: ? Nausea. ? Headache. ? Light-headedness. ? Chills and body aches. ? Not being able to sleep (insomnia). ??? You or your friends and family think your depression is getting worse. Get help right away if: ??? You have thoughts of hurting yourself or others. Get help right away if you feel like you may hurt yourself or others, or have thoughts about taking your own life. Go to your nearest emergency room or: ??? Call 911. ??? Call the National Suicide Prevention Lifeline at or 233. This is open 24 hours a day. ??? Text the Crisis Text Line at 110368. This information is not intended to replace advice given to you by your health care provider. Make sure you discuss any questions you have with your health care provider. Document Revised: 09/02/2022 Document Reviewed: 09/02/2022 Elsevier Patient Education ? 2023 [employer] C URINE Observed: 12/08/2024 3:38 PM Status: F Source: [facility] Microbiology PROCEDURE: Urine Culture [R1] SOURCE: U Random BODY SITE: COLLECTED DATE/TIME: 12/08/2024 15:38 EDT RECEIVED DATE/TIME: 12/09/2024 17:33 EDT START DATE/TIME: 12/09/2024 17:33 EDT FREE TEXT SOURCE: JORDEN BERRIOS CNP, CNP, JORDEN Nugent FINAL REPORTS Final Report [] Verified Date/Time: 12/11/2024 09:53 EDT 2,000 cfu/ml Mixed skin contaminants Performing Locations R1: This test was performed at: [facility], [address] [place] [address], [id number], Performed By: #### [id number] # ### [facility] [address] [place] [id number] C URINE Observed: 12/08/2024 3:38 PM Status: F Source: [facility] Microbiology PROCEDURE: Urine Culture [R1] SOURCE: U Random BODY SITE: COLLECTED DATE/TIME: 12/08/2024 15:38 EDT RECEIVED DATE/TIME: 12/09/2024 17:33 EDT START DATE/TIME: 12/09/2024 17:33 EDT FREE TEXT SOURCE: JORDEN BERRIOS CNP, CNP, JORDEN Nugent FINAL REPORTS Final Report [] Verified Date/Time: 12/11/2024 09:53 EDT 2,000 cfu/ml Mixed skin contaminants Performing Locations R1: This test was performed at: [facility], [address] [place] [address], [id number] , , Performed By: #### [id number] # ### [facility] [address] [place] [id number] FAMILY MEDICINE OFFICE/CLINI C NOTE Observed: 12/08/2024 2:50 PM Status: F Source: [facility] Family [facility] Office/Clini c Note Chief Complaint Follow up The patient reports persistent depression despite medication adjustments. HPI Staff Pt presents today for 4wk follow up to increased Sertraline dosage. Follow up for Mental Status: Medication adherence- Yes, takes medication as prescribed Medication refill needed: _ Suicidal thoughts-Not at this time Most recent REYNALDO: 10 Most recent PHQ: 12 Ovid like the increased dose helped for the first week, then wears off. Did bring urine sample to run, following recent UTI. History of Present Illness 74-year-old female presenting with depression and preventative care needs. The patient has been experiencing depression, for which sertraline was increased to 100 mg daily, but she reports that the medication was only effective for the first week. She has not seen a therapist and expresses reluctance to engage in therapy, although it was recommended as the next step in her treatment plan. The patient reports a history of constipation over the past year, with no clear recollection of her last colonoscopy. She has been referred for a colonoscopy due to these symptoms. The patient has a history of kidney stones, which have been present for years, and she reports blood in her urine. She is scheduled to see a urologist in [place] for further evaluation on 12/20/2024. The patient has a BMI indicative of obesity and reports a sedentary lifestyle due to physical limitations. She used to engage in various physical activities but has ceased due to bodily discomfort and mobility issues. Review of Systems - Psychiatric: Reports persistent depression despite medication adjustment. Denies seeing a therapist. - Gastrointestinal: Reports constipation over the past year. Denies recent colonoscopy. - Genitourinary: Reports blood in urine. Denies symptoms of urinary tract infection. - Musculoskeletal: Reports difficulty with physical activities due to bodily discomfort. Physical Exam Vitals & Measurements T: 37.0 ???C(Oral) HR: 60(Peripheral) RR: 18 BP: 136/84 SpO2: 97% HT: 62 in HT: 158 cm WT: 97.1 kg WT: 214.069 lb BMI: 38.9 General: alert, no acute distress Cardiovascular: regular rate and rhythm, normal peripheral perfusion Respiratory: Lungs CTA, respirations non labored Extremities: no deformity, no trauma Neurological: oriented x 4, LOC appropriate for age speech normal Assessment/Plan 1. Depression (F32.A: Depression, unspecified) - Completed and reviewed the PHQ-9 score of 12 and the REYNALDO-7 score of 10 today in the office - Continue current sertraline dosage; consider therapy referral for additional support. Ordered: sertraline, 100 mg = 1 tab(s), Oral, Daily, # 90 tab(s), Refills(s) 1, Pharmacy: [id number], 158, cm, 12/08/24 15:05:00 EDT, Height/Length Dosing, 97.1, kg, 12/08/24 15:05:00 EDT, Weight Dosing [facility] [place] Ambulatory Referral Urnls Dip Stick Auto w/o Microscopy POC [address] 2. Screen for colon cancer (Z12.11: Encounter for screening for malignant neoplasm of colon) Ordered: [facility] Internal Ambulatory Referral 3. BMI 38.0-38.9,adult (Z68.38: Body mass index [BMI] 38.0-38.9, adult) BMI 38.9 4. Obesity (BMI 30-39.9) (E66.9: Obesity, unspecified) - Encourage lifestyle modifications to increase physical activity within comfort limits. Ordered: sertraline, 100 mg = 1 tab(s), Oral, Daily, # 90 tab(s), Refills(s) 1, Pharmacy: [id number], 158, cm, 12/08/24 15:05:00 EDT, Height/Length Dosing, 97.1, kg, 12/08/24 15:05:00 EDT, Weight Dosing 5. Smoker (F17.200: Nicotine dependence, unspecified, uncomplicated) - Discuss smoking cessation options to improve overall health. 6. UTI symptoms (R39.9: Unspecified symptoms and signs involving the genitourinary system) POC UA- + for blood Ordered: Urine Culture 7. Constipation, unspecified (K59.00) - Referral for colonoscopy to evaluate gastrointestinal symptoms. Ordered: [facility] Internal Ambulatory Referral 8. Calculus of kidney (N20.0) - Follow-up with urology for further evaluation and management. 9. Hematuria, unspecified (R31.9) - Monitor for potential underlying causes; urology appointment scheduled. Former smoker (Z87.891: Personal history of nicotine dependence) Encouraged to continue is a non-smoker Ordered: sertraline, 100 mg = 1 tab(s), Oral, Daily, # 90 tab(s), Refills(s) 1, Pharmacy: [facility]/pharmacy #[id number], 158, cm, 12/08/24 15:05:00 EDT, Height/Length Dosing, 97.1, kg, 12/08/24 15:05:00 EDT, Weight Dosing Follow-up With When Contact Information JORDEN BERRIOS CNP, FAM In 4 months 04/09/[address] [id number] [facility] (1) Additional Instructions: Depression JORDEN BERRIOS CNP, FAM Additional Instructions: Patient Education Managing Depression, Adult Problem List/Past Medical History Ongoing Arthritis BMI 38.0-38.9,adult C. difficile diarrhea Cellulitis of leg Chronic diastolic congestive heart failure Chronic kidney disease, stage 3a Chronic obstructive pulmonary disease Depression Former smoker Glaucoma H/O hematuria Heart disease Hx of basal cell carcinoma Hx of thyroid cancer Hyperlipidemia Hypertension Hypertensive heart and kidney disease with heart failure Hypothyroid Iron deficiency anemia Kidney stones Long-term current use of opiate analgesic drug Obesity (BMI 30-39.9) Renal mass SK (seborrheic keratosis) Skin cancer Sleep apnea Smoker SOB (shortness of breath) Thyroid cancer Historical Anxiety Arthritis Carpal tunnel Hypotension Liver disease Microscopic hematuria Osteopenia Thyroid cancer Trigeminal neuralgia of left side of face Procedure/Surgical History Radiofrequency ablation of nerve root of lumbar spine using fluoroscopic guidance (05/02/2024), Skin cancer (02/04/2024), Glaucoma drainage surgery (01/04/2024), Injection of facet joint using fluoroscopic guidance (09/02/2023), Injection of facet joint using fluoroscopic guidance (07/15/2023), Epidural injection of lumbar spine using fluoroscopic guidance (01/21/2023), Epidural injection of lumbar spine using fluoroscopic [...] fluoroscopic guidance (11/21/2015), Appendectomy, Arthroplasty of knee, Cancer of skin, Cataract, Cholecystectomy, Glaucoma surgery, Hysterectomy, Injection of nerve root of lumbar spine using fluoroscopic guidance, Thyroidectomy. Medications aspirin 81 mg Oral EC Tab, 81 mg= 1 tab(s), Oral, Daily atorvastatin 40 mg Tab biotin, 1 tab(s), Oral, BID bisoprolol 10 mg Tab, 10 mg= 1 tab(s), Oral, Daily calcium-vitamin D extended release, 2 tab(s), Oral, qAM dorzolamide-timolol Opth 2%-0.5% Ginette, 1 drop(s), Eye-Both, BID doxepin 10 mg Cap, 10 mg= 1 cap(s), Oral, Daily furosemide 40 mg Tab, See Instructions Glucosamine Chondroitin oral capsule, 1 cap, Oral, BID High Potency Probiotic oral capsule, 1 cap, Oral, Daily isosorbide mononitrate 120 mg ER Tab, 120 mg= 1 tab(s), Oral, qAM Klor Con 10 mEq Cap-ER, 1 tab, Oral, BID, 4 refills latanoprost Opth 0.005% Ginette, 1 drop(s), OPTH, Once a day (at bedtime) nitroglycerin 0.4 mg sublingual Tab, 0.4 mg= 1 tab(s), SubLingual, q5min, PRN [place] 325 mg-5 mg oral tablet, 1 tab(s), Oral, BID, PRN omeprazole, 20 mg, Oral, Daily pregabalin 150 mg Cap, 150 mg= 1 cap(s), Oral, BID primidone 50 mg Tab, 50 mg= 1 tab(s), Oral, Once a day (at bedtime) ranolazine 1000 mg oral tablet, extended release, 1000 mg= 1 tab(s), Oral, BID sertraline 100 mg Tab, 100 mg= 1 tab(s), Oral, Daily, 1 refills Synthroid 125 mcg (0.125 mg) Tab, 125 mcg, Oral, Daily, 1 refills tiZANidine 4 mg Tab, 8 mg= 2 tab(s), Oral, Bedtime Vascepa 1 g oral capsule, 2 gm= 2 cap(s), Oral, BID Allergies amoxicillin (Hives) Social History Alcohol - Denies Alcohol Use, 06/10/2022 1-2 times per year, 06/17/2019 Substance Abuse - Denies Substance Abuse, 10/25/2015 Tobacco - Denies Tobacco Use, 10/31/2021 4 or less cigarettes(less than 1/4 pack)/day in last 30 days Tobacco Use:. Never Smokeless Tobacco Use:. Cigarettes, Household tobacco concerns: No. Yes, 12/08/2024 Family History Arthritis: Mother. Congenital heart disease: Negative: Mother. Heart failure: Mother. Hyperlipidemia: Mother. Hypertension: Mother. Primary malignant neoplasm of female genital organ: Mother. Immunizations Vaccine Date Status influenza virus vaccine, inactivated 03/03/2023 Recorded SARS-CoV-2 (COVID-19) [id number] 04/17/2022 Recorded influenza virus vaccine, inactivated 02/15/2022 Recorded SARS-CoV-2 (COVID-19) mRNA BNT-162b2 vax 05/15/2021 Recorded influenza virus vaccine, inactivated 04/27/2021 Recorded SARS-CoV-2 (COVID-19) mRNA BNT-162b2 vax 08/07/2020 Recorded SARS-CoV-2 (COVID-19) mRNA BNT-162b2 vax 07/16/2020 Recorded SARS-CoV-2 (COVID-19) mRNA BNT-162b2 vax 07/2020 Recorded SARS-CoV-2 (COVID-19) mRNA BNT-162b2 vax 06/2020 Recorded pneumococcal 23-valent vaccine 02/26/2019 Recorded influenza virus vaccine, inactivated 02/26/2019 Recorded influenza virus vaccine, inactivated 02/21/2019 Recorded pneumococcal 23-valent vaccine 02/17/2018 Recorded pneumococcal 13-valent vaccine 02/09/2018 Recorded influenza virus vaccine, inactivated 02/09/2018 Recorded influenza virus vaccine, inactivated 02/08/2017 Recorded influenza virus vaccine, inactivated 03/12/2015 Recorded influenza virus vaccine, inactivated 03/23/2014 Recorded pneumococcal 23-valent vaccine 03/10/2003 Recorded Lab Results Ambulatory Point of Care Results Bilirubin Urine Dipstick: Negative (12/08/24 15:18:00) Blood Urine Dipstick: 3+ Large (12/08/24 15:18:00) Glucose Urine Dipstick: Negative (12/08/24 15:18:00) Ketones Urine Dipstick: Negative (12/08/24 15:18:00) Leukocytes Urine Dipstick: Trace (12/08/24 15:18:00) Nitrite Urine Dipstick: Negative (12/08/24 15:18:00) Protein Urine Dipstick: 1+ (30 mg/dl) (12/08/24 15:18:00) Specific Heath Urine Dipstick: 1.015 (12/08/24 15:18:00) Urine Appearance Urine Dipstick: Slightly cloudy (12/08/24 15:18:00) Urine Color Urine Dipstick: Mlaena (12/08/24 15:18:00) Urobilinogen Urine Dipstick: Normal 0.2-1 EU/dl (12/08/24 15:18:00) pH Urine Dipstick: 7 (12/08/24 15:18:00) Result Comment: Electronical ly Signed By: JORDEN BERRIOS CNP\.br\Date and Time Signed: 12/08/24 15:52 EDT AMBULATORY VISIT SUMMARY Observed: 12/08 2:50 PM Status: F Source: [facility] Ambulatory Visit Summary DIANN LINDER :1950 Visit Date:12/08/2024 Ambulatory Visit Instructions Your Diagnosis Depression BMI 38.0-38.9,adult Obesity (BMI 30-39.9) Smoker Your Care Team Attending Physician - JORDEN BERRIOS CNP Primary Care Physician - Amilcar Cordova MD This Is Your Medications List acetaminophen-hydrocodone ([place] 325 mg-5 mg oral tablet) ascorbic acid/chondroitin/glucosa/jayson (Glucosamine Chondroitin oral capsule) aspirin (aspirin 81 mg Oral EC Tab) atorvastatin (atorvastatin 40 mg Tab) bifidobacterium/lactobacillus/streptococcus (High Potency Probiotic oral capsule) biotin bisoprolol (bisoprolol 10 mg Tab) calcium-vitamin D (calcium-vitamin D extended release) dorzolamide-timolol ophthalmic (dorzolamide-timolol Opth 2%-0.5% Ginette) doxepin (doxepin 10 mg Cap) furosemide (furosemide 40 mg Tab) icosapent (Vascepa 1 g oral capsule) isosorbide mononitrate (isosorbide mononitrate 120 mg ER Tab) latanoprost ophthalmic (latanoprost Opth 0.005% Ginette) levothyroxine (Synthroid 125 mcg (0.125 mg) Tab) nitroglycerin (nitroglycerin 0.4 mg sublingual Tab) omeprazole potassium chloride (Klor Con 10 mEq Cap-ER) pregabalin (pregabalin 150 mg Cap) primidone (primidone 50 mg Tab) ranolazine (ranolazine 1000 mg oral tablet, extended release) sertraline (sertraline 100 mg Tab) sertraline (sertraline 100 mg Tab) tizanidine (tiZANidine 4 mg Tab) Procedures Performed Radiofrequency ablation of nerve root of lumbar spine using fluoroscopic guidance (05/02/2024), Skin cancer (02/04/2024), Glaucoma drainage surgery (01/04/2024), Injection of facet joint using fluoroscopic guidance (09/02/2023), Injection of facet joint using fluoroscopic guidance (07/15/2023), Epidural injection of lumbar spine using fluoroscopic guidance (01/21/2023), Epidural injection of lumbar spine using fluoroscopic [...] fluoroscopic guidance (11/21/2015), Appendectomy, Arthroplasty of knee, Cancer of skin, Cataract, Cholecystectomy, Glaucoma surgery, Hysterectomy, Injection of nerve root of lumbar spine using fluoroscopic guidance, Thyroidectomy. Discharge Vitals Temperature (Oral) 37.0 ???C Heart Rate (Peripheral) 60 Respiratory Rate 18 Blood Pressure 136/84 Height 158 cm Height 62 in Weight 97.1 kg Weight 214.069 lb BMI 38.9 What to do next Scheduled Follow-Up Appointments Thursday 1:45 PM EDT With: Indiana Walsh PA-C Where: [facility] Thursday 2:30 PM EDT With: Where: [address] [id number] 1:20 PM EST With: JORDEN BERRIOS CNP Where: [place] [id number] Medications What How Much When Why Instructions Unchanged acetaminophen-hydrocodone ([place] 325 mg-5 mg oral tablet) 1 Tablets By Mouth 2 times a day as needed for as needed for pain Back pain, chronic Unchanged ascorbic acid/ chondroitin/ glucosa/ jayson (Glucosamine Chondroitin oral capsule) 1 cap By Mouth 2 times a day Unchanged aspirin (aspirin 81 mg Oral EC Tab) 1 Tablets By Mouth Every day Unchanged atorvastatin (atorvastatin 40 mg Tab) Unchanged bifidobacterium/ lactobacillus/ streptococcus (High Potency Probiotic oral capsule) 1 cap By Mouth Every day Unchanged biotin 1 Tablets By Mouth 2 times a day Unchanged bisoprolol (bisoprolol 10 mg Tab) 1 Tablets By Mouth Every day Unchanged calcium-vitamin D (calcium-vitamin D extended release) 2 Tablets By Mouth Once a day (in the morning) Unchanged dorzolamide-timolol ophthalmic (dorzolamide-timolol Opth 2%-0.5% Ginette) 1 Drops Both eyes 2 times a day Unchanged doxepin (doxepin 10 mg Cap) 1 Capsules By Mouth Every day Unchanged furosemide (furosemide 40 mg Tab) See instructions Takes 20mg every other day and then 40mg on the other days Unchanged icosapent (Vascepa 1 g oral capsule) 2 Capsules By Mouth 2 times a day Unchanged isosorbide mononitrate (isosorbide mononitrate 120 mg ER Tab) 1 Tablets By Mouth Once a day (in the morning) Unchanged latanoprost ophthalmic (latanoprost Opth 0.005% Ginette) 1 Drops Ophthalmic Once a day (at bedtime) Unchanged levothyroxine (Synthroid 125 mcg (0.125 mg) Tab) 125 Microgram By Mouth Every day Unchanged nitroglycerin (nitroglycerin 0.4 mg sublingual Tab) 1 Tablets Sublingual Every 5 minutes as needed for for chest pain Unchanged omeprazole 20 Milligram By Mouth Every day Unchanged potassium chloride (Klor Con 10 mEq Cap-ER) 1 tab By Mouth 2 times a day Unchanged pregabalin (pregabalin 150 mg Cap) 1 Capsules By Mouth 2 times a day Failed back syndrome Duration: 90 Days Unchanged primidone (primidone 50 mg Tab) 1 Tablets By Mouth Once a day (at bedtime) Unchanged ranolazine (ranolazine 1000 mg oral tablet, extended release) 1 Tablets By Mouth 2 times a day TAKE 1 TABLET BY MOUTH TWO TIMES A DAY Unchanged sertraline (sertraline 100 mg Tab) 1 Tablets By Mouth Every day Unchanged sertraline (sertraline 100 mg Tab) 1 Tablets By Mouth Every day UTI (urinary tract infection) Depression Former smoker Obesity (BMI 30-39.9) Unchanged tizanidine (tiZANidine 4 mg Tab) 2 Tablets By Mouth At bedtime Allergies amoxicillin (Hives) Problems Ongoing - Any problem that you are currently receiving treatment for. Arthritis BMI 38.0-38.9,adult C. difficile diarrhea Cellulitis of leg Chronic diastolic congestive heart failure Chronic kidney disease, stage 3a Chronic obstructive pulmonary disease Depression Former smoker Glaucoma H/O hematuria Heart disease Hx of basal cell carcinoma Hx of thyroid cancer Hyperlipidemia Hypertension Hypertensive heart and kidney disease with heart failure Hypothyroid Iron deficiency anemia Kidney stones Long-term current use of opiate analgesic drug Obesity (BMI 30-39.9) Renal mass SK (seborrheic keratosis) Skin cancer Sleep apnea Smoker SOB (shortness of breath) Thyroid cancer Historical - Any problem that you are no longer receiving treatment for. Anxiety Arthritis Carpal tunnel Hypotension Liver disease Microscopic hematuria Osteopenia Thyroid cancer Trigeminal neuralgia of left side of face Patient Survey You may receive a survey via text or e-mail asking about your office visit. Please share your experience with us by completing your survey. We appreciate your feedback and thank you for choosing us for your care. Patient Portal You may access all of your results and other medical record information on our secure patient portal. If you are not signed up for this yet, please contact [employer] at [phone] to get signed up today. Language Information Language assistance services are available as needed. PATIENT EDUCATION Observed: 11/10/2024 4:06 PM Status: F Source: [facility] Patient Education Mental and Behavioral Health Managing Depression, Adult Depression is a mental health condition that affects your thoughts, feelings, and actions. Being diagnosed with depression can bring you relief if you did not know why you have felt or behaved a certain way. It could also leave you feeling overwhelmed. Finding ways to manage your symptoms can help you feel more positive about your future. How to manage lifestyle changes Being depressed is difficult. Depression can increase the level of everyday stress. Stress can make depression symptoms worse. You may believe your symptoms cannot be managed or will never improve. However, there are many things you can try to help manage your symptoms. There is hope. Managing stress Stress is your body's reaction to life changes and events, both good and bad. Stress can add to your feelings of depression. Learning to manage your stress can help lessen your feelings of depression. Try some of the following approaches to reducing your stress (stress reduction techniques): ??? Listen to music that you enjoy and that inspires you. ??? Try using a meditation martin or take a meditation class. ??? Develop a practice that helps you connect with your spiritual self. Walk in nature, pray, or go to a place of buddhism. ??? Practice deep breathing. To do this, inhale slowly through your nose. Pause at the top of your inhale for a few seconds and then exhale slowly, letting yourself relax. Repeat this three or four times. ??? Practice yoga to help relax and work your muscles. Choose a stress reduction technique that works for you. These techniques take time and practice to develop. Set aside 5?15 minutes a day to do them. Therapists can offer training in these techniques. Do these things to help manage stress: ??? Keep a journal. ??? Know your limits. Set healthy boundaries for yourself and others, such as saying no when you think something is too much. ??? Pay attention to how you react to certain situations. You may not be able to control everything, but you can change your reaction. ??? Add humor to your life by watching funny movies or shows. ??? Make time for activities that you enjoy and that relax you. ??? Spend less time using electronics, especially at night before bed. The light from screens can make your brain think it is time to get up rather than go to bed. Medicines Medicines, such as antidepressants, are often a part of treatment for depression. ??? Talk with your pharmacist or health care provider about all the medicines, supplements, and herbal products that you take, their possible side effects, and what medicines and other products are safe to take together. ??? Make sure to report any side effects you may have to your health care provider. Relationships Your health care provider may suggest family therapy, couples therapy, or individual therapy as part of your treatment. How to recognize changes Everyone responds differently to treatment for depression. As you recover from depression, you may start to: ??? Have more interest in doing activities. ??? Feel more hopeful. ??? Have more energy. ??? Eat a more regular amount of food. ??? Have better mental focus. It is important to recognize if your depression is not getting better or is getting worse. The symptoms you had in the beginning may return, such as: ??? Feeling tired. ??? Eating too much or too little. ??? Sleeping too much or too little. ??? Feeling restless, agitated, or hopeless. ??? Trouble focusing or making decisions. ??? Having unexplained aches and pains. ??? Feeling irritable, angry, or aggressive. If you or your family members notice these symptoms coming back, let your health care provider know right away. Follow these instructions at home: Activity ??? Try to get some form of exercise each day, such as walking. ??? Try yoga, mindfulness, or other stress reduction techniques. ??? Participate in group activities if you are able. Lifestyle ??? Get enough sleep. ??? Cut down on or stop using caffeine, tobacco, alcohol, and any other harmful substances. ??? Eat a healthy diet that includes plenty of vegetables, fruits, whole grains, low-fat dairy products, and lean protein. Limit foods that are high in solid fats, added sugar, or salt (sodium). General instructions ??? Take [id number] and prescription medicines only as told by your health care provider. ??? Keep all follow-up visits. It is important for your health care provider to check on your mood, behavior, and medicines. Your health care provider may need to make changes to your treatment. Where to find support Talking to others Friends and family members can be sources of support and guidance. Talk to trusted friends or family members about your condition. Explain your symptoms and let them know that you are working with a health care provider to treat your depression. Tell friends and family how they can help. Finances ??? Find mental health providers that fit with your financial situation. ??? Talk with your health care provider if you are worried about access to food, housing, or medicine. ??? Call your insurance company to learn about your co-pays and prescription plan. Where to find more information You can find support in your area from: ??? Anxiety and Depression Association of [place] (ADAA): adaa.org ??? Mental Health [place]: mentalhealthamerica.net ??? National [place] on Mental Illness: eloy.org Contact a health care provider if: ??? You stop taking your antidepressant medicines, and you have any of these symptoms: ? Nausea. ? Headache. ? Light-headedness. ? Chills and body aches. ? Not being able to sleep (insomnia). ??? You or your friends and family think your depression is getting worse. Get help right away if: ??? You have thoughts of hurting yourself or others. Get help right away if you feel like you may hurt yourself or others, or have thoughts about taking your own life. Go to your nearest emergency room or: ??? Call 911. ??? Call the National Suicide Prevention Lifeline at or 093. This is open 24 hours a day. ??? Text the Crisis Text Line at 407654. This information is not intended to replace advice given to you by your health care provider. Make sure you discuss any questions you have with your health care provider. Document Revised: 09/02/2022 Document Reviewed: 09/02/2022 Bleacher Report Patient Education ? 2023 [employer]. FAMILY MEDICINE OFFICE/CLINI C NOTE Observed: 11/10/2024 3:11 PM Status: F Source: [facility] Family Medicine Office/Clini c Note Chief Complaint ER follow up The patient presents with concerns regarding urinary tract infection, depression, and obesity management. [facility] Staff Former Dr Art rivera. Presents today for ER follow up. [place] [facility] [place]: [place]24 Symptoms the patient presented with: N&V & diarrhea DX: UTI, Ureteral Stone & Fecal Impaction Current concerns: Pt has constant back pain. Does go to pain clinic. Hard to decipher between kidney & back pain. History of Present Illness 74-year-old female presenting with a follow-up after an emergency room visit for a urinary tract infection. She was diagnosed with a urinary tract infection and discharged with antibiotics, which she is currently taking three times a day. The patient reports no significant bowel movements due to reduced food intake and is using a stool softener. The patient has a history of depression and is currently on sertraline 50 mg and doxepin. She reports feeling depressed due to reduced physical activity and increased sleep, which her family has noted. The patient is considering an increase in sertraline dosage to help manage her symptoms. The patient has a history of obesity, with a reported weight of over 210 pounds. She has not experienced significant weight loss recently and acknowledges limited physical activity due to back pain. The patient also reports a history of kidney stones and is awaiting a follow-up call from a urologist for further management. Pulse ox and heart are reversed in the chart- Patient's HR is 52 and the pulse ox is 95%. Review of Systems PHQ Score Initial Depression Screen Score: 0 SCORE - Gastrointestinal: Reports reduced bowel movements due to decreased food intake. Denies significant abdominal pain. - Neurological: Reports increased sleep and feelings of depression. Denies any acute neurological deficits. - Musculoskeletal: Reports limited physical activity due to back pain. Denies acute musculoskeletal injuries. Physical Exam Vitals & Measurements T: 36.6 ???C(Oral) HR: 95(Peripheral) RR: 18 BP: 134/82 SpO2: 52% HT: 62 in HT: 158 cm WT: 210.982 lb WT: 95.7 kg BMI: 38.34 General: alert, no acute distress Skin: warm, dry Head: no trauma, normocephalic Neck: Trachea midline, no adenopathy, no tenderness Eye: normal conjunctiva, sclera clear Cardiovascular: regular rate and rhythm, normal peripheral perfusion Respiratory: Lungs CTA, respirations non labored Back: No CV tenderness, Normal ROM, Normal alignment. Extremities: no deformity, no trauma Neurological: oriented x 4, LOC appropriate for age speech normal Assessment/Plan 1. UTI (urinary tract infection) (N39.0: Urinary tract infection, site not specified) - Continue current antibiotic regimen as prescribed. - Follow up with urologist for further evaluation and management of kidney stones. Ordered: sertraline, 100 mg = 1 tab(s), Oral, Daily, # 30 tab(s), Refills(s) 1, Pharmacy: [facility]/pharmacy #[id number], 158, cm, 11/10/24 15:19:00 EDT, Height/Length Dosing, 95.7, kg, 11/10/24 15:19:00 EDT, Weight Dosing 2. Depression (F32.A: Depression, unspecified) - Increase sertraline dosage to manage symptoms. - Monitor symptoms and follow up in four weeks to assess efficacy of medication adjustment. f/u in 4 weeks Ordered: sertraline, 100 mg = 1 tab(s), Oral, Daily, # 30 tab(s), Refills(s) 1, Pharmacy: [facility]/pharmacy #[id number], 158, cm, 11/10/24 15:19:00 EDT, Height/Length Dosing, 95.7, kg, 11/10/24 15:19:00 EDT, Weight Dosing 3. Former smoker (Z87.891: Personal history of nicotine dependence) Encouraged to continue as a non-smoker Ordered: sertraline, 100 mg = 1 tab(s), Oral, Daily, # 30 tab(s), Refills(s) 1, [id number], 158, cm, 11/10/24 15:19:00 EDT, Height/Length Dosing, 95.7, kg, 11/10/24 15:19:00 EDT, Weight Dosing 4. Obesity (BMI 30-39.9) (E66.9: Obesity, unspecified) - Encourage increased physical activity as tolerated, considering back pain limitations. - Monitor weight and dietary habits. Ordered: sertraline, 100 mg = 1 tab(s), Oral, Daily, # 30 tab(s), Refills(s) 1, [id number], 158, cm, 11/10/24 15:19:00 EDT, Height/Length Dosing, 95.7, kg, 11/10/24 15:19:00 EDT, Weight Dosing Follow-up With When Contact Information JORDEN BERRIOS CNP, FAM Within [address] [place] [id number] Business (1) Additional Instructions: Depression Patient Education Managing Depression, Adult Problem List/Past Medical History Ongoing Arthritis BMI 38.0-38.9,adult C. difficile diarrhea Cellulitis of leg Chronic diastolic congestive heart failure Chronic kidney disease, stage 3a Chronic obstructive pulmonary disease Depression Former smoker Glaucoma H/O hematuria Heart disease Hx of basal cell carcinoma Hx of thyroid cancer Hyperlipidemia Hypertension Hypertensive heart and kidney disease with heart failure Hypothyroid Iron deficiency anemia Kidney stones Long-term current use of opiate analgesic drug Obesity (BMI 30-39.9) Renal mass SK (seborrheic keratosis) Skin cancer Sleep apnea Smoker SOB (shortness of breath) Thyroid cancer Historical Anxiety Arthritis Carpal tunnel Hypotension Liver disease Microscopic hematuria Osteopenia Thyroid cancer Trigeminal neuralgia of left side of face Procedure/Surgical History Radiofrequency ablation of nerve root of lumbar spine using fluoroscopic guidance (05/02/2024), Skin cancer (02/04/2024), Glaucoma drainage surgery (01/04/2024), Injection of facet joint using fluoroscopic guidance (09/02/2023), Injection of facet joint using fluoroscopic guidance (07/15/2023), Epidural injection of lumbar spine using fluoroscopic guidance (01/21/2023), Epidural injection of lumbar spine using fluoroscopic [...] fluoroscopic guidance (11/21/2015), Appendectomy, Arthroplasty of knee, Cancer of skin, Cataract, Cholecystectomy, Glaucoma surgery, Hysterectomy, Injection of nerve root of lumbar spine using fluoroscopic guidance, Thyroidectomy. Medications aspirin 81 mg Oral EC Tab, 81 mg= 1 tab(s), Oral, Daily atorvastatin 40 mg Tab biotin, 1 tab(s), Oral, BID bisoprolol 10 mg Tab, 10 mg= 1 tab(s), Oral, Daily calcium-vitamin D extended release, 2 tab(s), Oral, qAM dorzolamide-timolol Opth 2%-0.5% Ginette, 1 drop(s), Eye-Both, BID doxepin 10 mg Cap, 10 mg= 1 cap(s), Oral, Daily furosemide 40 mg Tab, See Instructions Glucosamine Chondroitin oral capsule, 1 cap, Oral, BID High Potency Probiotic oral capsule, 1 cap, Oral, Daily isosorbide mononitrate 120 mg ER Tab, 120 mg= 1 tab(s), Oral, qAM Klor Con 10 mEq Cap-ER, 1 tab, Oral, BID, 4 refills latanoprost Opth 0.005% Ginette, 1 drop(s), OPTH, Once a day (at bedtime) nitroglycerin 0.4 mg sublingual Tab, 0.4 mg= 1 tab(s), SubLingual, q5min, PRN [place] 325 mg-5 mg oral tablet, 1 tab(s), Oral, BID, PRN omeprazole, 20 mg, Oral, Daily pregabalin 150 mg Cap, 150 mg= 1 cap(s), Oral, BID primidone 50 mg Tab, 50 mg= 1 tab(s), Oral, Once a day (at bedtime) ranolazine 1000 mg oral tablet, extended release, 1000 mg= 1 tab(s), Oral, BID sertraline 100 mg Tab, 100 mg= 1 tab(s), Oral, Daily, 1 refills Synthroid 125 mcg (0.125 mg) Tab, 125 mcg, Oral, Daily, 1 refills tiZANidine 4 mg Tab, 8 mg= 2 tab(s), Oral, Bedtime Vascepa 1 g oral capsule, 2 gm= 2 cap(s), Oral, BID Allergies amoxicillin (Hives) Social History Alcohol - Denies Alcohol Use, 06/10/2022 1-2 times per year, 06/17/2019 Substance Abuse - Denies Substance Abuse, 10/25/2015 Tobacco - Denies Tobacco Use, 10/31/2021 4 or less cigarettes(less than 1/4 pack)/day in last 30 days Tobacco Use:. Never Smokeless Tobacco Use:. Cigarettes, Household tobacco concerns: No. Yes, 11/10/2024 Family History Arthritis: Mother. Congenital heart disease: Negative: Mother. Heart failure: Mother. Hyperlipidemia: Mother. Hypertension: Mother. Primary malignant neoplasm of female genital organ: Mother. Immunizations Vaccine Date Status influenza virus vaccine, inactivated 03/03/2023 Recorded SARS-CoV-2 (COVID-19) [id number] 04/17/2022 Recorded influenza virus vaccine, inactivated 02/15/2022 Recorded SARS-CoV-2 (COVID-19) mRNA BNT-162b2 vax 05/15/2021 Recorded influenza virus vaccine, inactivated 04/27/2021 Recorded SARS-CoV-2 (COVID-19) mRNA BNT-162b2 vax 08/07/2020 Recorded SARS-CoV-2 (COVID-19) mRNA BNT-162b2 vax 07/16/2020 Recorded SARS-CoV-2 (COVID-19) mRNA BNT-162b2 vax 07/2020 Recorded SARS-CoV-2 (COVID-19) mRNA BNT-162b2 vax 06/2020 Recorded pneumococcal 23-valent vaccine 02/26/2019 Recorded influenza virus vaccine, inactivated 02/26/2019 Recorded influenza virus vaccine, inactivated 02/21/2019 Recorded pneumococcal 23-valent vaccine 02/17/2018 Recorded pneumococcal 13-valent vaccine 02/09/2018 Recorded influenza virus vaccine, inactivated 02/09/2018 Recorded influenza virus vaccine, inactivated 02/08/2017 Recorded influenza virus vaccine, inactivated 03/12/2015 Recorded influenza virus vaccine, inactivated 03/23/2014 Recorded pneumococcal 23-valent vaccine 03/10/2003 Recorded Result Comment: Electronical ly Signed By: JORDEN BERRIOS CNP\.br\Date and Time Signed: 11/10/24 16:06 EDT AMBULATORY VISIT SUMMARY Observed: 11/10 3:11 PM Status: F Source: [facility] Ambulatory Visit Summary NIYAH DIANN John :1950 Visit Date:11/10/2024 Ambulatory Visit Instructions Your Diagnosis UTI (urinary tract infection) BMI 38.0-38.9,adult Former smoker Obesity (BMI 30-39.9) Your Care Team Attending Physician - JORDEN BERRIOS CNP Primary Care Physician - Amilcar Cordova MD This Is Your Medications List acetaminophen-hydrocodone ([place] 325 mg-5 mg oral tablet) ascorbic acid/chondroitin/glucosa/jayson (Glucosamine Chondroitin oral capsule) aspirin (aspirin 81 mg Oral EC Tab) atorvastatin (atorvastatin 40 mg Tab) bifidobacterium/lactobacillus/streptococcus (High Potency Probiotic oral capsule) biotin bisoprolol (bisoprolol 10 mg Tab) calcium-vitamin D (calcium-vitamin D extended release) dorzolamide-timolol ophthalmic (dorzolamide-timolol Opth 2%-0.5% Ginette) doxepin (doxepin 10 mg Cap) furosemide (furosemide 40 mg Tab) icosapent (Vascepa 1 g oral capsule) isosorbide mononitrate (isosorbide mononitrate 120 mg ER Tab) latanoprost ophthalmic (latanoprost Opth 0.005% Ginette) levothyroxine (Synthroid 125 mcg (0.125 mg) Tab) nitroglycerin (nitroglycerin 0.4 mg sublingual Tab) omeprazole potassium chloride (Klor Con 10 mEq Cap-ER) pregabalin (pregabalin 150 mg Cap) primidone (primidone 50 mg Tab) ranolazine (ranolazine 1000 mg oral tablet, extended release) sertraline (sertraline 50 mg Tab) tizanidine (tiZANidine 4 mg Tab) Procedures Performed Radiofrequency ablation of nerve root of lumbar spine using fluoroscopic guidance (05/02/2024), Skin cancer (02/04/2024), Glaucoma drainage surgery (01/04/2024), Injection of facet joint using fluoroscopic guidance (09/02/2023), Injection of facet joint using fluoroscopic guidance (07/15/2023), Epidural injection of lumbar spine using fluoroscopic guidance (01/21/2023), Epidural injection of lumbar spine using fluoroscopic [...] fluoroscopic guidance (11/21/2015), Appendectomy, Arthroplasty of knee, Cancer of skin, Cataract, Cholecystectomy, Glaucoma surgery, Hysterectomy, Injection of nerve root of lumbar spine using fluoroscopic guidance, Thyroidectomy. Discharge Vitals Temperature (Oral) 36.6 ???C Heart Rate (Peripheral) 95 Respiratory Rate 18 Blood Pressure 134/82 Height 158 cm Height 62 in Weight 95.7 kg Weight 210.982 lb BMI 38.34 What to do next Scheduled Follow-Up Appointments Thursday 1:45 PM EDT With: Indiana Walsh PA-C [facility] Thursday 1:40 PM EDT With: Amilcar Cordova MD Where: [address] [id number] Thursday 2:30 PM EDT With: Where: [address] [id number]- Medications What How Much When Why Instructions Unchanged acetaminophen-hydrocodone ([place] 325 mg-5 mg oral tablet) 1 Tablets By Mouth 2 times a day as needed for as needed for pain Back pain, chronic Unchanged ascorbic acid/ chondroitin/ glucosa/ jayson (Glucosamine Chondroitin oral capsule) 1 cap By Mouth 2 times a day Unchanged aspirin (aspirin 81 mg Oral EC Tab) 1 Tablets By Mouth Every day Unchanged atorvastatin (atorvastatin 40 mg Tab) Unchanged bifidobacterium/ lactobacillus/ streptococcus (High Potency Probiotic oral capsule) 1 cap By Mouth Every day Unchanged biotin 1 Tablets By Mouth 2 times a day Unchanged bisoprolol (bisoprolol 10 mg Tab) 1 Tablets By Mouth Every day Unchanged calcium-vitamin D (calcium-vitamin D extended release) 2 Tablets By Mouth Once a day (in the morning) Unchanged dorzolamide-timolol ophthalmic (dorzolamide-timolol Opth 2%-0.5% Ginette) 1 Drops Both eyes 2 times a day Unchanged doxepin (doxepin 10 mg Cap) 1 Capsules By Mouth Every day Unchanged furosemide (furosemide 40 mg Tab) See instructions Takes 20mg every other day and then 40mg on the other days Unchanged icosapent (Vascepa 1 g oral capsule) 2 Capsules By Mouth 2 times a day Unchanged isosorbide mononitrate (isosorbide mononitrate 120 mg ER Tab) 1 Tablets By Mouth Once a day (in the morning) Unchanged latanoprost ophthalmic (latanoprost Opth 0.005% Ginette) 1 Drops Ophthalmic Once a day (at bedtime) Unchanged levothyroxine (Synthroid 125 mcg (0.125 mg) Tab) 125 Microgram By Mouth Every day Unchanged nitroglycerin (nitroglycerin 0.4 mg sublingual Tab) 1 Tablets Sublingual Every 5 minutes as needed for for chest pain Unchanged omeprazole 20 Milligram By Mouth Every day Unchanged potassium chloride (Klor Con 10 mEq Cap-ER) 1 tab By Mouth 2 times a day Unchanged pregabalin (pregabalin 150 mg Cap) 1 Capsules By Mouth 2 times a day Failed back syndrome Duration: 90 Days Unchanged primidone (primidone 50 mg Tab) 1 Tablets By Mouth Once a day (at bedtime) Unchanged ranolazine (ranolazine 1000 mg oral tablet, extended release) 1 Tablets By Mouth 2 times a day TAKE 1 TABLET BY MOUTH TWO TIMES A DAY Unchanged sertraline (sertraline 50 mg Tab) 50 Milligram By Mouth Every day Unchanged tizanidine (tiZANidine 4 mg Tab) 2 Tablets By Mouth At bedtime Allergies amoxicillin (Hives) Problems Ongoing - Any problem that you are currently receiving treatment for. Arthritis BMI 38.0-38.9,adult C. difficile diarrhea Cellulitis of leg Chronic diastolic congestive heart failure Chronic kidney disease, stage 3a Chronic obstructive pulmonary disease Former smoker Glaucoma H/O hematuria Heart disease Hx of basal cell carcinoma Hx of thyroid cancer Hyperlipidemia Hypertension Hypertensive heart and kidney disease with heart failure Hypothyroid Iron deficiency anemia Kidney stones Long-term current use of opiate analgesic drug Obesity (BMI 30-39.9) Renal mass SK (seborrheic keratosis) Skin cancer Sleep apnea Smoker SOB (shortness of breath) Thyroid cancer Historical - Any problem that you are no longer receiving treatment for. Anxiety Arthritis Carpal tunnel Hypotension Liver disease Microscopic hematuria Osteopenia Thyroid cancer Trigeminal neuralgia of left side of face Patient Survey You may receive a survey via text or e-mail asking about your office visit. Please share your experience with us by completing your survey. We appreciate your feedback and thank you for choosing us for your care. Patient Portal You may access all of your results and other medical record information on our secure patient portal. If you are not signed up for this yet, please contact [employer] at [phone] to get signed up today. Language Information Language assistance services are available as needed. URINE CULTURE Observed: 11/08/2024 12:14 AM Status: F Source: [facility] 15,000 colonies/ml mixed bacterial skin contaminants including mixed gram negative bacilli - 2 Days PERFORMED BY: [place] [address] PATHOLOGIST [employer] GEOVANNA FOREMAN M.D. Performed By: #### CUU #### [address] CONSULTATION NOTE Observed: 10/20/2024 1:44 PM Status: F Source: [facility] Consultation Note Patient: DIANN LINDER Age: 74 years Sex: Female : 1950 Associated Diagnoses: None Author: [place] Walsh PA-C Subjective Chief complaint 10/20/2024 13:20 EDT Low back pain . Patient is a 74-year-old female following up today for a 2-month med management follow-up. She underwent previous bilateral medial branch RFA covering the L4-S1 facet joints. This was done on 05/02/2024. At this time, she still feels that she has 50% relief but she is noting a lot of aches and pains throughout her whole body. She is still having these issues where she feels like everything is just burning. Sometimes she just has to lay in her recliner. She has upper back pain, elbow pain, hip pain, and back/buttock pain. She rates it a 7/10. She states that the increase of the gabapentin did may be somewhat help but not enough. She is using 900 mg twice a day. She is also using [place] 5/325 1 tablet twice a day as needed for pain. She wonders what else we can do to help with the global body pain. Health Status Allergies: Allergic Reactions (Selected) Severity Not Documented Amoxicillin- Hives., Allergies (1) Active Severity Reaction amoxicillin Hives Current medications: (Selected) Prescriptions Prescribed Klor Con 10 mEq Cap-ER: 1 tab, Oral, BID, # 180 cap(s), Refills(s) 4, Pharmacy: [facility], 158, cm, 08/19/24 13:39:00 EDT, Height/Length Dosing, 90.9, kg, 08/19/24 13:39:00 EDT, Weight Dosing [place] 325 mg-5 mg oral tablet: 1 tab(s), Oral, BID as needed for pain, 60 tab(s), Refill(s) 0, [facility]/pharmacy #[id number], 158, cm, 10/20/24 13:29:00 EDT, Height/Length Dosing, 90.7, kg, 10/20/24 13:29:00 EDT, Weight Dosing Synthroid 125 mcg (0.125 mg) Tab: 125 mcg, Oral, Daily, # 90 EA, Refills(s) 1, Pharmacy: [facility], 158, cm, 07/25/24 13:18:00 EDT, Height/Length Dosing, 92.7, kg, 07/25/24 13:18:00 EDT, Weight Dosing gabapentin 300 mg Cap: 600 mg = 2 cap(s), Oral, BID, X 90 day(s), # 360 cap(s), Refills(s) 1, Pharmacy: [facility], 158, cm, 06/03/24 14:11:00 EST, Height/Length Dosing, 82, kg, 06/03/24 14:11:00 EST, Weight Dosing pregabalin 150 mg Cap: 150 mg = 1 cap(s), Oral, BID, X 90 day(s), # 180 cap(s), Refills(s) 0, Pharmacy: [facility], 158, cm, 10/20/24 13:29:00 EDT, Height/Length Dosing, 90.7, kg, 10/20/24 13:29:00 EDT, Weight Dosing sertraline 50 mg Tab: 50 mg, Oral, Daily, # 90 tab(s), Refills(s) 4, Pharmacy: [facility], 158, cm, 10/20/23 14:45:00 EDT, Height/Length Dosing, 88.5, kg, 10/20/23 14:45:00 EDT, Weight Dosing Documented Medications Documented Glucosamine Chondroitin oral capsule: 1 cap, Oral, BID, Prophylaxis High Potency Probiotic oral capsule: 1 cap, Oral, Daily, Prophylaxis Vascepa 1 g oral capsule: 2 gm = 2 cap(s), Oral, BID, Refills(s) 0 aspirin 81 mg Oral EC Tab: 81 mg = 1 tab(s), Oral, Daily, Refills(s) 0, Blood Thinner atorvastatin 40 mg Tab: Refills(s) 0 biotin: = 1 tab(s), Oral, BID, Refills(s) 0, Prophylaxis bisoprolol 10 mg Tab: 10 mg = 1 tab(s), Oral, Daily, High blood pressure calcium-vitamin D extended release: 2 tab(s), Oral, qAM, Prophylaxis dorzolamide-timolol Opth 2%-0.5% Ginette: 1 drop(s), Eye-Both, BID, Refill(s) 0 doxepin 10 mg Cap: 10 mg = 1 cap(s), Oral, Daily, Depression furosemide 40 mg Tab: See Instructions, Takes 20mg every other day and then 40mg on the other days, Refills(s) 0 isosorbide mononitrate 120 mg ER Tab: 120 mg = 1 tab(s), Oral, qAM, Refills(s) 0, High blood pressure latanoprost Opth 0.005% Ginette: 1 drop(s), OPTH, Once a day (at bedtime), 2.5 mL, Refill(s) 0 nitroglycerin 0.4 mg sublingual Tab: 0.4 mg = 1 tab(s), SubLingual, q5min, PRN for chest pain, # 100 tab(s), Refills(s) 0 omeprazole: 20 mg, Oral, Daily, Control of stomach acid primidone 50 mg Tab: 50 mg = 1 tab(s), Oral, Once a day (at bedtime), # 30 tab(s), Refills(s) 0 ranolazine 1000 mg oral tablet, extended release: 1,000 mg = 1 tab(s), Oral, BID, TAKE 1 TABLET BY MOUTH TWO TIMES A DAY tiZANidine 4 mg Tab: 8 mg = 2 tab(s), Oral, Bedtime, Refills(s) 0, Insomnia Problem list: All Problems Chronic back pain / SNOMED CT 897434106 / Confirmed Osteoarthritis / SNOMED CT 1212049512 / Confirmed Glaucoma / SNOMED CT 63086033 / Confirmed Hypothyroid / SNOMED CT 99583167 / Confirmed C. difficile diarrhea / SNOMED CT 4851418893 / Confirmed Arthritis / SNOMED CT 4526856 / Confirmed Thyroid cancer / SNOMED CT 205481261 / Confirmed Heart disease / SNOMED CT 84650272 / Confirmed Hypertension / SNOMED CT 6276414133 / Confirmed Hyperlipidemia / SNOMED CT 96907545 / Confirmed Sleep apnea / SNOMED CT 285665855 / Confirmed Long-term current use of opiate analgesic drug / SNOMED CT 010081438582768 / Confirmed Added secondary to current Opioid Treatment Agreement Kidney stones / SNOMED CT 607149715 / Confirmed Renal mass / SNOMED CT 188568581 / Confirmed H/O hematuria / SNOMED CT 4112658509 / Confirmed SOB (shortness of breath) / SNOMED CT 399551958 / Confirmed SK (seborrheic keratosis) / SNOMED CT 7219404896 / Confirmed Cellulitis of leg / SNOMED CT 8879396332 / Confirmed BMI 35.0-35.9,adult / SNOMED CT 800103690 / Confirmed Skin cancer / SNOMED CT 5026086982 / Confirmed Chronic diastolic congestive heart failure / SNOMED CT 4592154151 / Confirmed Added per outpatient CDI policy based on Betty report Hypertensive heart disease with heart failure (I11.0) Persistent (Historical Claim) ??? Sep 02, 2023 ??? [facility], Heart ??? Heart Failure, Except End-Stage and Acute and 09/12/2022 [facility]- [id number] chronic diastolic heart failure and 07/06/2024 [facility] consult- anxiety and depression, iron deficiency anemia, CKD 3, PFTs 01/25/2021 moderate obstruction on spirometry without a bronchodilator response, elevated RV suggests air trapping, mildly reduced diffusion capacity, overall stufy compatible with moderate emphysema, [place] diastolic heart failure (page 4), coronary artery disease involving klawock coronary artery of klawock heart with other form of angina pectoris [id number] Chronic obstructive pulmonary disease / SNOMED CT 821560433 / Confirmed Added per outpatient CDI policy based on: Betty Chronic obstructive pulmonary disease, unspecified (J44.9) Persistent (Historical Claim) ??? Sep 02, 2023 ??? [facility], Lung ??? Chronic Obstructive Pulmonary Disease, Interstitial Lung Disorders, and Other Chronic Lung Disorders 07/06/2024 [facility] consult- anxiety and depression, iron deficiency anemia, CKD 3, PFTs 01/25/2021 moderate obstruction on spirometry without a bronchodilator response, elevated RV suggests air trapping, mildly reduced diffusion capacity, overall stufy compatible with moderate emphysema, [place] diastolic heart failure (page 4), coronary artery disease involving klawock coronary artery of klawock heart with other form of angina pectoris [id number] 04/30/2022 H&P- CHF, HTN, emphysema or COPD Hypertensive heart and kidney disease with heart failure / SNOMED CT 0215151139 / Confirmed Linked per outpatient CDI policy. Iron deficiency anemia / SNOMED CT 391996063 / Confirmed Noted in 07/06/2024 [facility] consultation note and added per outpatient CDI policy Chronic kidney disease, stage 3a / SNOMED CT 8013627483 / Confirmed Added per Dr. Cordova query response and outpatient CDI policy based on: Betty report- Chronic kidney disease, stage 3b (N18.32) Persistent (Historical Claim) ??? Jan 06, 2024 ??? [facility] Kidney ??? Chronic Kidney Disease, Moderate (Stage 3B) Labs- 09/12/2022 eGFR 49, 10/31/2021 eGFR 49, 07/04/2019 eGFR 55, 11/24/2018 eGFR 49 07/06/2024 [facility] consult- anxiety and depression, iron deficiency anemia, CKD 3 Hx of thyroid cancer / SNOMED CT 4885035304 / Confirmed Hx of basal cell carcinoma / SNOMED CT 2976495143 / Confirmed BMI 37.0-37.9, adult / SNOMED CT 813219366 / Confirmed Obesity (BMI 30-39.9) / SNOMED CT 521060476 / Confirmed Former smoker / SNOMED CT 88195996 / Confirmed Smoker / SNOMED CT 156920324 / Confirmed Added secondary to documentation in Social History. Resolved: At risk for falls / SNOMED CT 131211988 Problem added when Risk for Falls Careplan was initiated. Resolved due to patient discharge. Resolved: At risk for falls / SNOMED CT 445927047 Problem added when Risk for Falls Careplan was initiated. Resolved due to patient discharge. Resolved: Arthritis / SNOMED CT 7954843 Resolved: Anxiety / SNOMED CT 39147186 Resolved: Trigeminal neuralgia of left side of face / SNOMED CT 85831293 Resolved: Osteopenia / SNOMED CT 806532286 Resolved: Hypotension / SNOMED CT 52979791 Resolved: Thyroid cancer / SNOMED CT 1346073009 Resolved: Carpal tunnel / SNOMED CT 772864088 Resolved: Liver disease / SNOMED CT 578631672 Resolved: Microscopic hematuria / SNOMED CT 170009160 Canceled: At risk for falls / SNOMED CT 110700405 Problem added when Risk for Falls Careplan was initiated. Resolved due to patient discharge. Canceled: Impaired skin integrity / SNOMED CT 69018197 Problem added on documentation of skin impairments. Resolved due to patient discharge. Canceled: Thyroid nodule / SNOMED CT 508479656 Canceled: Hematuria / SNOMED CT 008769978 Canceled: At risk for falls / SNOMED CT 516644443 Problem added when Risk for Falls Careplan was initiated. Canceled: Anemia / SNOMED CT 705677011 Canceled: HTN (hypertension) / SNOMED CT 5053045708 Canceled: Depression / SNOMED CT 04805362 Canceled: Smoker / IMO [id number] Added secondary to documentation in Social History. Canceled: Smoker / SNOMED CT 59998082 Added secondary to documentation in Social History. Canceled: Anemia / SNOMED CT 935047756 Canceled: Cancer, uterine / SNOMED CT 6351791520 Canceled: Hematoma / SNOMED CT 9746253939 Canceled: Abnormal kidney function / SNOMED CT 57204129 Objective Vital Signs 10/20/2024 13:20 EDT Peripheral Pulse Rate 56 bpm LOW Respiratory Rate 14 br/min Systolic Blood Pressure 103 mmHg Diastolic Blood Pressure 68 mmHg Mean Arterial Pressure, Cuff 80 mmHg General: Alert and oriented, No acute distress. Eye: Normal conjunctiva. HENT: Normocephalic, Normal hearing. Cardiovascular: No edema. Musculoskeletal Normal range of motion. Normal strength. 5/5 strength Tender at multiple different trigger points Integumentary: Warm, Dry, [place]. Neurologic: Alert, Oriented. Psychiatric: Cooperative, Appropriate mood & affect. 14 point review of systems was negative unless otherwise noted. Impression and Plan patient is 74-year-old female with past medical history significant for postlaminectomy syndrome, chronic pain, lumbar spondylosis and what sounds to be fibromyalgia. She has global body burning that she states gets worse with certain activities. Sometimes it just happens though. She rates it a 7/10. We discussed different options. At this time, she will continue on [place]. Most recent UDS was reviewed and is appropriate. OARRS was reviewed and is appropriate. Refill be sent to the pharmacy and Narcan has been offered and declined. We are going to have her discontinue the gabapentin and trial Lyrica. 150 mg twice daily. How to switch was discussed. Potential side effects were discussed. She is to follow-up in 2 to 3 months. She will call us in the interim should she require anything from our services. LILIANE score: 51%. As part of providing excellent, safe, comprehensive care, the following was completed at our patient's visit: Reviewed patient's medication reconciliation. Reviewed screening for depression, screening for tobacco use, and patient's Oswestry disability index results. For concerning screenings had a discussion with the patient, provided patient education, and recommended follow-up with primary care provider when appropriate. Patient noted with risk of falling received education on strength, gait, and balance training to prevent future risk of falling. Result Comment: Electronical ly Signed By: Jillian WATSON, [place]\.br\Date and Time Signed: 10/20/24 13:46 EDT OFFICE VISIT Observed: 08/31/2024 1:00 PM Status: COMPLETED Source: [facility] [id number] Diann Linder [birth year] F Date Provider Department Center 08/31/2024 [facility] Family History Problem Relation Age of Onset Heart failure Mother Family Status - Relation Status Age at Mother Level of Service:40055 [facility] OFFICE/OUTPATIENT ESTABLISHED LOW MDM 20 MIN PROGRESS Observed: 08/31/2024 1:00 PM Status: COMPLETED Source: [facility] Cardiology - [facility] pital Clinic Subjective Diann Linder is a 74 y.o. year old female patient being seen for 2 mo follow up CAD, WARREN, and chest pain. Says the chest pressure she reported at last visit is now mostly in her arms and shoulders. No change to her WARREN. Denies lightheadedness/palpitations. Patient Active Problem List Diagnosis Coronary arteriosclerosis [...] Papillary microcarcinoma of thyroid (CMS/HCC) Postoperative hypothyroidism Age-related nuclear cataract of both eyes BMI 35.0-35.9,adult Cellulitis of leg Cervical osteoarthritis Easy bruisability History of colon polyps Iron deficiency anemia Primary open angle glaucoma (POAG) of both eyes, mild stage SK (seborrheic keratosis) Brain fog Carpal tunnel syndrome, bilateral Hypersomnia Inadequate sleep hygiene Obesity due to excess calories Essential tremor Skin cancer Snoring Ulnar neuropathy at elbow of left upper extremity Ulnar neuropathy at elbow of right upper extremity Dry eyes PLMD (periodic limb movement disorder) Chronic diastolic heart failure (CMS/HCC) Chronic obstructive pulmonary disease (CMS/HCC) Former smoker Hx of basal cell carcinoma Hx of thyroid cancer Stage 3a chronic kidney disease (CMS/HCC) Family History Problem Relation Name Age of Onset Heart failure Mother Social History Tobacco Use Smoking status: Every Day Types: Cigarettes Smokeless tobacco: Never Substance Use Topics Alcohol use: Yes Comment: occasional Drug use: Never ABY Tidwell is seen in follow-up. I saw her [...] February 2022 she was admitted to the [facility] with acute on chronic diastolic heart failure and acute kidney injury. She had negative cardiac enzymes. This was thought due to dehydration at the time. She continues to have significant lower extremity edema. Her symptoms of shortness of breath have not changed. She did go to cardiac rehab a couple times but then stopped. Visit of 06/22/2023: She is seen in follow-up. At last visit with me I stopped amlodipine due to leg swelling. Today she reports that her leg swelling resolved. She currently has had no chest pain. She has improved in that regard. She still has shortness of breath on exertion NYHA class II-III. No palpitations. No dizziness or lightheadedness. No syncope. She feels much better than she felt in the past. She continues to take medications as prescribed. Visit of 07/06/2024: She is seen in follow-up. Today she reports that she has been having episodes of chest pain localized to the center of the chest representing pressure sensation sometimes radiating to the neck. She reports that the pain happens mostly at night. It is not related to exertion. Her shortness of breath is about stable for her. No leg edema. No palpitations. Visit of 08/31/2024: She is seen in follow-up. At last visit I gave her sublingual nitroglycerin to see if that helps with her symptoms. She reports that she has not had any more symptoms of chest pain since then. She does complain of occasional pain in numbness in her upper arms that happens mostly in the evening. She did use sublingual nitroglycerin 1 time and that did not help relieve her arm symptoms. Otherwise she has been stable with stable NYHA class II shortness of breath on exertion. Review of Systems Constitutional: Positive for malaise/fatigue. Cardiovascular: Positive for dyspnea on exertion (stable). Musculoskeletal: Positive for arthritis, back pain, joint pain, muscle weakness, myalgias and neck pain. Neurological: Positive for weakness. All other systems reviewed and are negative. Objective Visit Vitals BP 116/72 (BP Location: Right arm, Patient Position: Sitting) Pulse 54 Ht 1.575 m (5' 2 ) Wt 93.4 kg (206 lb) SpO2 95% BMI 37.68 kg/m??? Smoking Status Every Day BSA 2.02 m??? Physical Exam Constitutional: Appearance: She is well-developed. She is obese. She is not ill-appearing. HENT: Head: Normocephalic and atraumatic. Nose: Nose normal. Eyes: General: No scleral icterus. Pupils: Pupils are equal, round, and reactive to light. Neck: Thyroid: No thyromegaly. Vascular: No JVD. Cardiovascular: Rate and Rhythm: Normal rate and regular rhythm. Pulses: Radial pulses are 2+ on the right side and 2+ on the left side. Heart sounds: Normal heart sounds. No murmur heard. No friction rub. No gallop. Pulmonary: Effort: Pulmonary effort is normal. No respiratory distress. Breath sounds: Normal breath sounds. No wheezing or rales. Chest: Chest wall: No tenderness. Abdominal: General: Bowel sounds are normal. There is no distension. Palpations: Abdomen is soft. Tenderness: There is no abdominal tenderness. Musculoskeletal: General: No swelling. Cervical back: Neck supple. Right lower leg: No edema. Left lower leg: No edema. Skin: General: Skin is warm and dry. Neurological: General: No focal deficit present. Mental Status: She is alert and oriented to person, place, and time. Psychiatric: Mood and Affect: Mood normal. Behavior: Behavior is cooperative. Judgment: Judgment normal. Allergies Allergies Allergen Reactions Amoxicillin Hives Medications Current Outpatient Medications: albuterol 90 mcg/actuation inhaler, , Disp: , Rfl: alendronate (Fosamax) 35 mg tablet, Take 1 tablet every week by oral route for 84 days., Disp: , Rfl: aspirin 81 mg EC tablet, Take 1 tablet by mouth in the morning., Disp: , Rfl: atorvastatin (Lipitor) 40 mg tablet, TAKE 1 TABLET EVERY DAY, Disp: 90 tablet, Rfl: 3 bisoprolol (Zebeta) 10 mg tablet, TAKE 1 TABLET EVERY DAY, Disp: 90 tablet, Rfl: 3 doxepin (SINEquan) 10 mg capsule, TAKE 1 - 2 CAPSULES BY MOUTH EVERYDAY AT BEDTIME, Disp: , Rfl: furosemide (Lasix) 20 mg tablet, Take 1 tablet (20 mg) by mouth every other day., Disp: 45 tablet, Rfl: 3 furosemide (Lasix) 40 mg tablet, TAKE alternating 40mg and 20mg every other day, Disp: 90 tablet, Rfl: 3 gabapentin (Neurontin) 300 mg capsule, Take 1 capsule by mouth in the morning and at bedtime., Disp: , Rfl: HYDROcodone-acetaminophen ([place]) 5-325 mg tablet, Take 1 tablet by mouth if needed in the morning and at bedtime., Disp: , Rfl: icosapent ethyL (Vascepa) 1 gram capsule, Take 2 capsules (2 g) by mouth 2 times daily., Disp: 120 capsule, Rfl: 11 isosorbide mononitrate ER (Imdur) 120 mg 24 hr tablet, TAKE 1 TABLET ONE TIME DAILY DIRECTED (DO NOT CRUSH OR CHEW), Disp: 90 tablet, Rfl: 3 levothyroxine (Synthroid, Levoxyl) 125 mcg tablet, Take 125 mcg by mouth before breakfast., Disp: , Rfl: nitroglycerin (Nitrostat) 0.4 mg SL tablet, Place 1 tablet (0.4 mg) under the tongue every 5 (five) minutes if needed for chest pain. May repeat dose every 5 minutes for up to 3 doses total., Disp: 25 tablet, Rfl: 3 omeprazole (PriLOSEC) [address] capsule, Take 1 tablet by mouth in the morning., Disp: , Rfl: potassium chloride CR (Klor-Con M10) 10 mEq ER tablet, Take 10 mEq by mouth in the morning and at bedtime. Do not crush or chew., Disp: , Rfl: primidone (Mysoline) 50 mg tablet, Take 25 mg by mouth., Disp: , Rfl: ranolazine (Ranexa) 1,000 mg 12 hr tablet, TAKE 1 TABLET BY MOUTH 2 TIMES A DAY in the morning and at bedtime, Disp: 180 tablet, Rfl: 0 sertraline (Zoloft) 50 mg tablet, Take 1 tablet every day by oral route for 90 days., Disp: , Rfl: tiZANidine (Zanaflex) 4 mg tablet, Take 2 tablets every day by oral route for 90 days., Disp: , Rfl: Recent Labs No visits with results within 6 Month(s) from this visit. Latest known visit with results is: [facility] Encounter on 11/02/2020 Component Date Value Ventricular Rate 11/02/2020 60 Atrial Rate 11/02/2020 60 VA Interval 11/02/2020 134 QRS DURATION 11/02/2020 78 QT Interval 11/02/2020 402 QTC CALCULATION(BAZETT) 11/02/2020 402 P [place] 11/02/2020 -20 R-Hibernia 11/02/2020 26 T Wave [place] 11/02/2020 53 Diagnosis 11/02/2020 Value:Normal sinus rhythm Normal ECG No previous ECGs available Confirmed by Chris Coffey ([id number]) on 11/02/2020 9:50:45 AM Blood testing 03/20/2023: Hemoglobin 11.8, platelets 242, potassium 4.0, BUN 19, creatinine 1.3, EGFR 40, LFTs normal, NT proBNP 110, TSH normal. 06/27/2023: Chol 147, trig 222, LDL 48, HDL 55 07/16/2023: TSH 0.53 Lipids 06/24/2024: Triglycerides 114, cholesterol 160, HDL 65, LDL 73. Imaging and other tests Echocardiogram 03/23/2023: CONCLUSION: 1. Global left ventricular systolic function is normal; visually estimated ejection fraction 60 to 65% 2. The right ventricle is normal in size and systolic function 3. Grade 1, mild diastolic dysfunction 4. Biatrial enlargement 5. Mild tricuspid regurgitation 6. Moderately elevated right ventricular systolic pressure. RVSP 45 mmHg. Assessment/Plan Diagnoses and all orders for this visit: Coronary artery disease involving klawock coronary artery of klawock heart with other form of angina pectoris Primary hypertension Mixed hyperlipidemia Cardiovascular stress test abnormal Shortness of breath Diann has coronary artery disease with involvement of the whole entire segment of the mid LAD and a focal stenosis in the PLV branch. The caliber of the vessels is small. I previously reviewed the angiogram images with her. Those are also seen by the CT surgeon Dr. yAers at the time of the cardiac catheterization. We thought that medical therapy is the best for her. I previously discussed with her that stenting procedure can be done but is not the best option given long segment stenting of the LAD. at visit of June 2024 she reported having chest discomfort symptoms. I gave her sublingual nitroglycerin. Today she reports that she has not had the symptoms. The only symptoms she has are numbness and discomfort in her arms that did not respond to sublingual nitroglycerin as she tried it 1 time. I think that this is reassuring. I do not think that we need to proceed with cardiac catheterization at this time. I instructed her that if she has recurrence of symptoms to let me know and at that time we can proceed with cardiac catheterization. For now I will continue medical therapy. Her blood pressure and heart rate are well-controlled and she is maximally treated with antianginal medications. Her recent lipid profile shows adequate control. I will continue the same including the statin and Vascepa. Otherwise I will plan on seeing her in follow-up in 6 months. Follow up in about 6 months (around 03/02/2025). Venkat Tobias, OSCARDDENDUM 01/04/25: She can proceed with urology surgery at low to intermediate cardiac risk. If needed aspirin can be held 7 days prior and resumed afterwards. Venkat Tobias MD [facility] Collected: 2:00 PM Status: F Source: [facility] TYPE CODE TESTS RESULT OUT OF RANGE REFERENCE UNITS LAB [id number]([facility]) Test Name Toxassure Flex Unknown Performed By: #### [id number] #### [facility] [address] [place] [address] CONSULTATION NOTE Observed: 08/19/2024 1:46 PM Status: F Source: [facility] Consultation Note Patient: DIANN LINDER Age: 74 years Sex: Female : 1950 Associated Diagnoses: None Author: [place] Walsh PA-C Subjective Chief complaint 08/19/2024 13:34 EDT generalized all over body pain . Patient is a 74-year-old female following up today after a 3-month hiatus. She underwent previous bilateral medial branch RFA covering the L4-S1 facet joints. This was done on 05/02/2024. At this time, she still feels that she has 50% relief but she is noting a lot of aches and pains throughout her whole body at this time. She has upper back pain, elbow pain, hip pain, and back/buttock pain. She rates it a 2/10 but states that overall, everything is just achy. She has oral steroids at home and wondered about taking these but she does have cataract surgery in the near future and then she decided she was just going to call her eye surgeon which I think is appropriate. She uses gabapentin 600 mg in the morning and 600 mg at night and [place] 5/325 1 tablet twice a day as needed for pain. She does feel that these medications help her. At this time, she just wonders if there are other options to try to help with some of the generalized global pains that she is experiencing. Health Status Allergies: Allergic Reactions (Selected) Severity Not Documented Amoxicillin- Hives., Allergies (1) Active Severity Reaction amoxicillin Hives Current medications: (Selected) Prescriptions Prescribed Klor Con 10 mEq Cap-ER: 1 tab, Oral, BID, # 180 cap(s), Refills(s) 1, Pharmacy: [facility], 158, cm, 02/05/24 10:08:00 EDT, Height/Length Dosing, 82.6, kg, 02/05/24 10:08:00 EDT, Weight Dosing Synthroid 125 mcg (0.125 mg) Tab: 125 mcg, Oral, Daily, # 90 EA, Refills(s) 1, Pharmacy: [facility], 158, cm, 07/25/24 13:18:00 EDT, Height/Length Dosing, 92.7, kg, 07/25/24 13:18:00 EDT, Weight Dosing acetaminophen-hydrocodone 325 mg-5 mg oral tablet: 1 tab(s), Oral, BID for 30 day(s), 60 tab(s), Refill(s) 0, [facility]/pharmacy #[id number], 158, cm, 07/25/24 13:18:00 EDT, Height/Length Dosing, 92.7, kg, 07/25/24 13:18:00 EDT, Weight Dosing gabapentin 300 mg Cap: 600 mg = 2 cap(s), Oral, BID, X 90 day(s), # 360 cap(s), Refills(s) 1, Pharmacy: [facility], 158, cm, 06/03/24 14:11:00 EST, Height/Length Dosing, 82, kg, 06/03/24 14:11:00 EST, Weight Dosing sertraline 50 mg Tab: 50 mg, Oral, Daily, # 90 tab(s), Refills(s) 4, Pharmacy: [facility], 158, cm, 10/20/23 14:45:00 EDT, Height/Length Dosing, 88.5, kg, 10/20/23 14:45:00 EDT, Weight Dosing Documented Medications Documented Glucosamine Chondroitin oral capsule: 1 cap, Oral, BID, Prophylaxis High Potency Probiotic oral capsule: 1 cap, Oral, Daily, Prophylaxis Vascepa 1 g oral capsule: 2 gm = 2 cap(s), Oral, BID, Refills(s) 0 acetaminophen-hydrocodone 325 mg-5 mg oral tablet: 1 tab(s), Oral, BID as needed for pain, Refill(s) 0 aspirin 81 mg Oral EC Tab: 81 mg = 1 tab(s), Oral, Daily, Refills(s) 0, Blood Thinner atorvastatin 40 mg Tab: Refills(s) 0 biotin: = 1 tab(s), Oral, BID, Refills(s) 0, Prophylaxis bisoprolol 10 mg Tab: 10 mg = 1 tab(s), Oral, Daily, High blood pressure calcium-vitamin D extended release: 2 tab(s), Oral, qAM, Prophylaxis dorzolamide-timolol Opth 2%-0.5% Ginette: 1 drop(s), Eye-Both, BID, Refill(s) 0 doxepin 10 mg Cap: 10 mg = 1 cap(s), Oral, Daily, Depression furosemide 40 mg Tab: See Instructions, Takes 20mg every other day and then 40mg on the other days, Refills(s) 0 isosorbide mononitrate 120 mg ER Tab: 120 mg = 1 tab(s), Oral, qAM, Refills(s) 0, High blood pressure latanoprost Opth 0.005% Ginette: 1 drop(s), OPTH, Once a day (at bedtime), 2.5 mL, Refill(s) 0 nitroglycerin 0.4 mg sublingual Tab: 0.4 mg = 1 tab(s), SubLingual, q5min, PRN for chest pain, # 100 tab(s), Refills(s) 0 omeprazole: 20 mg, Oral, Daily, Control of stomach acid primidone 50 mg Tab: 50 mg = 1 tab(s), Oral, Once a day (at bedtime), # 30 tab(s), Refills(s) 0 ranolazine 1000 mg oral tablet, extended release: 1,000 mg = 1 tab(s), Oral, BID, TAKE 1 TABLET BY MOUTH TWO TIMES A DAY tiZANidine 4 mg Tab: 8 mg = 2 tab(s), Oral, Bedtime, Refills(s) 0, Insomnia Problem list: All Problems Chronic back pain / SNOMED CT 589701146 / Confirmed Osteoarthritis / SNOMED CT 7358235245 / Confirmed Glaucoma / SNOMED CT 05565593 / Confirmed Hypothyroid / SNOMED CT 73314651 / Confirmed C. difficile diarrhea / SNOMED CT 5328635067 / Confirmed Arthritis / SNOMED CT 9990698 / Confirmed Thyroid cancer / SNOMED CT 960174694 / Confirmed Heart disease / SNOMED CT 05365656 / Confirmed Hypertension / SNOMED CT 3548340552 / Confirmed Hyperlipidemia / SNOMED CT 73149658 / Confirmed Sleep apnea / SNOMED CT 781769647 / Confirmed Long-term current use of opiate analgesic drug / SNOMED CT 986883173117391 / Confirmed Added secondary to current Opioid Treatment Agreement Kidney stones / SNOMED CT 005341686 / Confirmed Renal mass / SNOMED CT 647457762 / Confirmed H/O hematuria / SNOMED CT 0632788618 / Confirmed SOB (shortness of breath) / SNOMED CT 874031064 / Confirmed SK (seborrheic keratosis) / SNOMED CT 8105140367 / Confirmed Cellulitis of leg / SNOMED CT 4785373982 / Confirmed BMI 35.0-35.9,adult / SNOMED CT 907954883 / Confirmed Skin cancer / SNOMED CT 1173341826 / Confirmed Chronic diastolic congestive heart failure / SNOMED CT 4564288430 / Confirmed Added per outpatient CDI policy based on Betty report Hypertensive heart disease with heart failure (I11.0) Persistent (Historical Claim) ??? Sep 02, 2023 ??? [facility], Heart ??? 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 Sep 02, 2023 ??? [facility], Lung ??? Chronic Obstructive Pulmonary Disease, Interstitial Lung Disorders, and Other Chronic Lung Disorders 07/06/2024 [facility] consult- anxiety and depression, iron deficiency anemia, CKD 3, PFTs 01/25/2021 moderate obstruction on spirometry without a bronchodilator response, elevated RV suggests air trapping, mildly reduced diffusion capacity, overall stufy compatible with moderate emphysema, Chornic diastolic heart failure (page 4), coronary artery disease involving klawock coronary artery of klawock heart with other form of angina pectoris [id number] 04/30/2022 H&P- CHF, HTN, emphysema or COPD Hypertensive heart and kidney disease with heart failure / SNOMED CT 3420302427 / Confirmed Linked per outpatient CDI policy. Iron deficiency anemia / SNOMED CT 465131968 / Confirmed Noted in 07/06/2024 [facility] consultation note and added per outpatient CDI policy Chronic kidney disease, stage 3a / SNOMED CT 3893604593 / Confirmed Added per Dr. Cordova query response and outpatient CDI policy based on: [facility] report- Chronic kidney disease, stage 3b (N18.32) Persistent (Historical Claim) ??? Jan 06, 2024 ??? [facility] Kidney ??? Chronic Kidney Disease, Moderate (Stage 3B) Labs- 09/12/2022 eGFR 49, 10/31/2021 eGFR 49, 07/04/2019 eGFR 55, 11/24/2018 eGFR 49 07/06/2024 [facility] consult- anxiety and depression, iron deficiency anemia, CKD 3 Hx of thyroid cancer / SNOMED CT 0380755059 / Confirmed Hx of basal cell carcinoma / SNOMED CT 8157777329 / Confirmed BMI 37.0-37.9, adult / SNOMED CT 145164689 / Confirmed Obesity (BMI 30-39.9) / SNOMED CT 533622070 / Confirmed Former smoker / SNOMED CT 05105271 / Confirmed Smoker / SNOMED CT 302762440 / Confirmed Added secondary to documentation in Social History. Resolved: At risk for falls / SNOMED CT 850042375 Problem added when Risk for Falls Careplan was initiated. Resolved due to patient discharge. Resolved: At risk for falls / SNOMED CT 177400661 Problem added when Risk for Falls Careplan was initiated. Resolved due to patient discharge. Resolved: Arthritis / SNOMED CT 9068628 Resolved: Anxiety / SNOMED CT 39403393 Resolved: Trigeminal neuralgia of left side of face / SNOMED CT 22211208 Resolved: Osteopenia / SNOMED CT 946480881 Resolved: Hypotension / SNOMED CT 01504957 Resolved: Thyroid cancer / SNOMED CT 5102838322 Resolved: Carpal tunnel / SNOMED CT 279175814 Resolved: Liver disease / SNOMED CT 625430708 Resolved: Microscopic hematuria / SNOMED CT 287744933 Canceled: At risk for falls / SNOMED CT 024593002 Problem added when Risk for Falls Careplan was initiated. Resolved due to patient discharge. Canceled: Impaired skin integrity / SNOMED CT 70759781 Problem added on documentation of skin impairments. Resolved due to patient discharge. Canceled: Thyroid nodule / SNOMED CT 220439236 Canceled: Hematuria / SNOMED CT 494413237 Canceled: At risk for falls / SNOMED CT 924437337 Problem added when Risk for Falls Careplan was initiated. Canceled: Anemia / SNOMED CT 651789025 Canceled: HTN (hypertension) / SNOMED CT 5306574320 Canceled: Depression / SNOMED CT 06365025 Canceled: Smoker / IMO [id number] Added secondary to documentation in Social History. Canceled: Smoker / SNOMED CT 87493168 Added secondary to documentation in Social History. Canceled: Anemia / SNOMED CT 911021958 Canceled: Cancer, uterine / SNOMED CT 4712696395 Canceled: Hematoma / SNOMED CT 9407195753 Canceled: Abnormal kidney function / SNOMED CT 93749299 Objective Vital Signs 08/19/2024 13:34 EDT Peripheral Pulse Rate 54 bpm LOW Respiratory Rate 16 br/min Systolic Blood Pressure 168 mmHg HI Diastolic Blood Pressure 84 mmHg Mean Arterial Pressure, Cuff 112 mmHg General: Alert and oriented, No acute distress. Eye: Normal conjunctiva. HENT: Normocephalic, Normal hearing. Cardiovascular: No edema. Musculoskeletal Normal range of motion. Normal strength. 5/5 strength Neurologic: Alert, Oriented. Psychiatric: Cooperative, Appropriate mood & affect. 14 point review of systems was negative unless otherwise noted. Results Review General results Impression and Plan Assessment and Plan Patient is a 74-year-old female with a past medical history significant for some acne syndrome, chronic pain and lumbosacral spondylosis. Previous RFA did help her back pain at this time, she still feels that it is helping her back pain but she is noting a lot of generalized global overall body pain. She rates this a 2/10 but states with certain activities and with the weather it has gotten somewhat worse. We discussed her gabapentin. She is going to start using 900 mg twice a day as she is currently taking 600 mg twice a day to see if this gives her better control of the pain. She intermittently uses [place]. We will obtain an updated UDS today for compliance purposes. Does not car refill. She will call if she is. OARRS reviewed and is appropriate. Lauryn has previously been offered and declined. She also underwent taking oral steroids. She is a prescription at home. She is going to clear this with her eye doctor as she is having cataract surgery in the near future. At this time, we discussed increasing the gabapentin and follow-up in 2 months. Call the clinic sooner if necessary. LILIANE score: 47%. Result Comment: Electronical ly Signed By: Jillian WATSON, [place]\.br\Date and Time Signed: 08/19/24 13:50 EDT TSH WITH T4FR REFLEX Collected: 025 1:38 PM Status: F Source: [facility] TYPE CODE TESTS RESULT OUT OF RANGE REFERENCE UNITS LAB 3016-3([facility]) THYROTROPIN: ACNC:PT:SER/ PLAS:QN: 0.67 Normal 0.34-5.60 mcIU/mL Performed By: #### [id number] #### [facility] [address] [place] [address] LIPID PANEL Collected: 07/26/2024 1:38 PM Status: F Source: [facility] TYPE CODE TESTS RESULT OUT OF RANGE REFERENCE UNITS LAB 3-3(INC) CHOLESTEROL:M CNC:PT:SER/PL :QN: 150 Normal 120-200 mg/dL [facility] 2085[facility] CHOLESTEROL.I N HDL:MCNC:PT:S ER/PLAS:QN: 56 Unknown mg/dL Result Comment: '>= 60 LOW R ISK' '<= 40 HIGH RISK' LAB 2089-1(LOINC) CHOLESTEROL.I N LDL:MCNC:PT:S ER/PLAS:QN: 65 Normal <=129 mg/dL LAB 2571-8(LOINC) TRIGLYCERIDE: MCNC:PT:SER/P LAS:QN: 160 High <=149 mg/dL LAB 29808-2(LOINC) CHOLESTEROL.I N VLDL:MCNC:PT: SER/PLAS:QN:C ALCULATED 32 Normal 7-40 mg/dL Performed By: #### [id number] # ### [facility] [address] [place] [address] EGFR Collected: 1:38 PM Status: F Source: [facility] TYPE CODE TESTS RESULT OUT OF RANGE REFERENCE UNITS LAB 94777179([facility]) eGFR 53 Low >=59 mL/min/1 .7 3 m2 Performed By: #### [id number] #### [facility] [address] [place] [address] CBC W/ AUTO DIFF Collected: 07/26/2024 1:38 PM Statu s: F Source: [facility] TYPE CODE TESTS RESULT OUT OF RANGE REFERENCE UNITS LAB 95831-2([facility]) LEUKOCYTES^^CO RRECTED FOR NUCLEATED ERYTHROCYTES:N CNC:PT:BLD:QN: AUTOMATED COUNT 5.4 Normal 4.0-11.0 E9/L LAB 789-8([facility]) ERYTHROCYTES:N CNC:PT:BLD:QN: AUTOMATED COUNT 4.0 Low 4.3-5.9 E12/L LAB 718-7([facility]) HEMOGLOBIN:MCN C:PT:BLD:QN: 12.5 Normal 12.0-16.0 gm/dL LAB 4544-3([facility]) ERYTHROCYTE/BL OOD:VFR:PT:BLD :QN:AUTOMATED COUNT 37.2 Normal 34.0-46.0 % LAB 788-0([facility]) OBSERVATION:DI STWIDTH:PT:RBC :QN:AUTOMATED COUNT 14.0 Normal 10.9-14.2 % LAB 785-6([facility]) HEMOGLOBIN:ENT MASS:PT:RBC:QN :AUTOMATED COUNT 31.4 Normal 27.0-34.0 pg LAB 786-4([facility]) HEMOGLOBIN:ENT MCNC:PT:RBC:QN :AUTOMATED COUNT 33.5 Normal 31.4-36.0 gm/dL LAB 787-2([facility]) OBSERVATION:EN TMEANVOL:PT:RB C:QN:AUTOMATED COUNT 93.8 Normal 80.0-100.0 fL LAB 18764-8([facility]) PLATELET:ENTME ANVOL:PT:BLD:Q N:AUTOMATED COUNT 8.0 Normal 6.4-10.8 fL LAB 777-3([facility]) PLATELETS:NCNC :PT:BLD:QN:AUT OMATED COUNT 242.0 Normal 150.0-500.0 E9/L LAB 77010-0([facility]) NEUTROPHILS/LE UKOCYTES:NFR:P T:BLD:QN: 55.1 Normal 36.0-75.0 % LAB 731-0([facility]) LYMPHOCYTES:NC NC:PT:BLD:QN:A UTOMATED COUNT 28.3 Normal 14.0-50.0 % LAB 742-7([facility]) MONOCYTES:NCNC :PT:BLD:QN:AUT OMATED COUNT 0.6 Normal 0.2-1.0 E9/L LAB 713-8([facility]) EOSINOPHILS/LE UKOCYTES:NFR:P T:BLD:QN:AUTOM ATED COUNT 4.4 Normal 0.0-8.0 % LAB 704-7([facility]) BASOPHILS:NCNC :PT:BLD:QN:AUT OMATED COUNT 0.7 Normal 0.0-2.0 % LAB 751-8([facility]) NEUTROPHILS:NC NC:PT:BLD:QN:A UTOMATED COUNT 3.0 Normal 2.0-7.5 E9/L LAB 98273-8([facility]) LYMPHOCYTES:NC NC:PT:BLD:QN: 1.5 Normal 1.0-4.0 E9/L LAB 19891-9([facility]) EOSINOPHILS:NC NC:PT:BLD:QN: 0.2 Normal 0.0-0.5 E9/L LAB 18964-5([facility]) BASOPHILS/LEUK OCYTES:NFR.DF: PT:BLD:QN:AUTO MATED COUNT 0.0 Normal 0.0-0.2 E9/L Performed By: #### [id number] # ### [facility] [address] [place] [address] CMP Collected: 07/26/2024 1:38 PM Status: F Source: [facility] TYPE CODE TESTS RESULT OUT OF RANGE REFERENCE UNITS LAB 2345-7([facility]) GLUCOSE:MCNC:P T:SER/PLAS:QN: 105 Normal 55-199 mg/dL LAB 3094-0([facility]) UREA NITROGEN:MCNC: PT:SER/PLAS:QN : 24 High 5-21 mg/dL LAB 2160-0([facility]) CREATININE:MCN C:PT:SER/PLAS: QN: 1.1 Normal 0.5-1.3 mg/dL LAB 73595-3([facility]) CALCIUM:MCNC:P T:SER/PLAS:QN: 9.6 Normal 8.9-11.1 mg/dL LAB 2951-2([facility]) SODIUM:SCNC:PT :SER/PLAS:QN: 142 Normal 135-145 mmol/L LAB 2823-3([facility]) POTASSIUM:SCNC :PT:SER/PLAS:Q N: 4.3 Normal 3.5-5.3 mmol/L LAB 2075-0([facility]) CHLORIDE:SCNC: PT:SER/PLAS:QN : 108 Normal 101-111 mmol/L LAB 2028-9([facility]) CARBON DIOXIDE:SCNC:P T:SER/PLAS:QN: 31 Normal 21-31 mmol/L LAB 6768-6([facility]) ALKALINE PHOSPHATASE:CC NC:PT:SER/PLAS :QN: 74 Normal 21-98 Int._Unit /L LAB 1975-2([facility]) BILIRUBIN:MCNC :PT:SER/PLAS:Q N: 0.5 Normal 0.0-1.1 mg/dL LAB 1751-7([facility]) ALBUMIN:MCNC:P T:SER/PLAS:QN: 4.1 Normal 3.3-5.0 gm/dL LAB 2885-2([facility]) PROTEIN:MCNC:P T:SER/PLAS:QN: 6.7 Normal 6.0-7.8 gm/dL LAB 1744-2([facility]) ALANINE AMINOTRANSFERA SE:CCNC:PT:SER /PLAS:QN:NO ADDITION OF P-5'-P 8 Normal 6-46 Int._Unit /L LAB 1920-8([facility]) ASPARTATE AMINOTRANSFERA SE:CCNC:PT:SER /PLAS:QN: 12 Normal 5-43 Int._Unit /L LAB 3097-3([facility]) UREA NITROGEN/CREAT ININE:MRTO:PT: SER/PLAS:QN: 22 High 10-20 No Units LAB 87189-7(LOINC) ANION GAP:SCNC:PT:SE R/PLAS:QN:CALC ULATED 7 Normal 6-16 mEq/L LAB 86731-3(LOINC) GLOBULIN:MCNC: PT:SER:QN:CALC ULATED 2.6 Normal 1.4-4.0 gm/dL LAB 25585-9(LOINC) ALBUMIN/GLOBUL IN:MCRTO:PT:SE R:QN: 1.6 Normal 1.1-2.2 Performed By: #### [id number] # ### [facility] [address] [place] [address] FAMILY MEDICINE OFFICE/CLINI C NOTE Observed: 07/25/2024 1:36 PM Status: F Source: [facility] Office/Clini c Note Chief Complaint Medication Refills The patient presents for prescription renewal, lab evaluation for thyroid function and iron deficiency anemia, and follow-up care after treatment for a basal cell carcinoma. HPI Staff Pt presents today for med refills. Patient is here for follow up on Thyroid Disease. Do you have any of the following symptoms? Change in energy level? no Weight change? no Heat/cold intolerance? no Hair/skin/nail changes? no Change in bowels? no Last TSH: ? No results in chart nor clinisync Per pt, Dr Ashley would like Dr oCrdova to manage thyroid. Pt is requesting refill of levothyroxine. History of Present Illness The patient is a 74-year-old female presenting for condition management and follow-up care. She has chronic diastolic congestive heart failure, managed by a direct sales consultant with nitroglycerin prescribed. Her iron deficiency anemia requires reassessment due to recent fatigue, and thyroid function testing is planned due to uncertain recent monitoring. She is post-excisional follow-up for a basal cell carcinoma on the shoulder, which was handled by a specialist in [place]. - Planned thyroid function test to assess current thyroid health status. - Lab testing for iron deficiency anemia to evaluate potential causes of fatigue. - Regular dermatological assessments were recommended for monitoring and managing potential skin cancer recurrences. Review of Systems PHQ Score Initial Depression Screen Score: 0 SCORE Physical Exam Vitals & Measurements HR: 55(Peripheral) RR: 18 BP: 138/84 SpO2: 96% HT: 62 in HT: 158 cm WT: 92.7 kg WT: 204.368 lb BMI: 37.13 General: alert, no acute distress ENMT: oral mucosa moist Cardiovascular: Regular rate and rhythm, normal peripheral perfusion Respiratory: Lungs clear to auscultation, respirations non labored Extremities: no deformity, no trauma Neurological: oriented x 4, level of consciousness appropriate for age, CN II- XII intact, motor strength equal & normal bilaterally, speech normal Abdomen: Soft, Non-tender, Non-distended, + Bowel sounds Assessment/Plan 1. Chronic diastolic congestive heart failure (I50.32: Chronic diastolic (congestive) heart failure) Continue with nitroglycerin. Routine monitoring under direct sales consultant???s care remains pertinent. Ordered: CBC w/ Auto Diff Comprehensive Metabolic Panel Lipid Panel TSH With T4fr Reflex 2. Chronic obstructive pulmonary disease (J44.9: Chronic obstructive pulmonary disease, unspecified) Regular COPD management continues without current intervention needs. Ordered: CBC w/ Auto Diff Comprehensive Metabolic Panel Lipid Panel TSH With T4fr Reflex 3. Hypertensive heart and kidney disease with heart failure (I13.0: Hypertensive heart and chronic kidney disease with heart failure and stage 1 through stage 4 chronic kidney disease, or unspecified chronic kidney disease) Monitoring vital signs and renal function in line with existing management remains in focus. Ordered: CBC w/ Auto Diff Comprehensive Metabolic Panel Lipid Panel TSH With T4fr Reflex 4. Iron deficiency anemia (D50.9: Iron deficiency anemia, unspecified) Fatigue warrants updated labs for detailed anemia evaluation and treatment plan modification, if required. Ordered: CBC w/ Auto Diff Comprehensive Metabolic Panel Lipid Panel TSH With T4fr Reflex 5. Chronic kidney disease, stage 3a (N18.31: Chronic kidney disease, stage 3a) Continuation of monitoring and standard management protocols advised. Ordered: CBC w/ Auto Diff Comprehensive Metabolic Panel Lipid Panel TSH With T4fr Reflex 6. Thyroid cancer (C73: Malignant neoplasm of thyroid gland) Awaiting up-to-date thyroid function studies to inform ongoing management. Ordered: CBC w/ Auto Diff Comprehensive Metabolic Panel Lipid Panel TSH With T4fr Reflex 7. Hx of thyroid cancer (Z85.850: Personal history of malignant neoplasm of thyroid) Removing Thyroid CA. WIll add hx. Ordered: CBC w/ Auto Diff Comprehensive Metabolic Panel Lipid Panel TSH With T4fr Reflex 8. Hx of basal cell carcinoma (Z85.828: Personal history of other malignant neoplasm of skin) Post-excision follow-up complete, with continued dermatological vigilance emphasized. 74-year-old female with a history of chronic diastolic congestive heart failure and iron deficiency anemia presenting for prescription renewal, lab work for thyroid and anemia evaluation, and follow-up after basal cell carcinoma treatment. Her heart condition appears stable with cardiology management. Fatigue needs investigation in the context of anemia. Thyroid function is unchecked recently, necessitating current evaluation. Successfully treated basal cell carcinoma appropriately follows up. I discussed with the patient the need for renewed medications, detailed lab work to assess iron deficiency anemia, and set plans to check thyroid function due to her thyroid cancer history. We agreed this monitoring is necessary to stay ahead of potential health concerns. Regarding her basal cell carcinoma, she has received excision by a specialist and should continue dermatological follow-up to prevent and detect any possible recurrences early. All treatments and future plans were explained thoroughly, with patient understanding and agreement noted. Follow-up No qualifying data available Problem List/Past Medical History Ongoing Arthritis BMI 35.0-35.9,adult C. difficile diarrhea Cellulitis of leg Chronic diastolic congestive heart failure Chronic kidney disease, stage 3a Chronic obstructive pulmonary disease Glaucoma H/O hematuria Heart disease Hx of basal cell carcinoma Hx of thyroid cancer Hyperlipidemia Hypertension Hypertensive heart and kidney disease with heart failure Hypothyroid Iron deficiency anemia Kidney stones Long-term current use of opiate analgesic drug Renal mass SK (seborrheic keratosis) Skin cancer Sleep apnea SOB (shortness of breath) Thyroid cancer Historical Anxiety Arthritis Carpal tunnel Hypotension Liver disease Microscopic hematuria Osteopenia Thyroid cancer Trigeminal neuralgia of left side of face Procedure/Surgical History Radiofrequency ablation of nerve root of lumbar spine using fluoroscopic guidance (05/02/2024), Skin cancer (02/04/2024), Glaucoma drainage surgery (01/04/2024), Injection of facet joint using fluoroscopic guidance (09/02/2023), Injection of facet joint using fluoroscopic guidance (07/15/2023), Epidural injection of lumbar spine using fluoroscopic guidance (01/21/2023), Epidural injection of lumbar spine using fluoroscopic [...] fluoroscopic guidance (11/21/2015), Appendectomy, Arthroplasty of knee, Cancer of skin, Cholecystectomy, Glaucoma surgery, Hysterectomy, Injection of nerve root of lumbar spine using fluoroscopic guidance, Thyroidectomy. Medications acetaminophen-hydrocodone 325 mg-5 mg oral tablet, 1 tab(s), Oral, BID, PRN aspirin 81 mg Oral EC Tab, 81 mg= 1 tab(s), Oral, Daily atorvastatin 40 mg Tab biotin, 1 tab(s), Oral, BID bisoprolol 10 mg Tab, 10 mg= 1 tab(s), Oral, Daily calcium-vitamin D extended release, 2 tab(s), Oral, qAM dorzolamide-timolol Opth 2%-0.5% Ginette, 1 drop(s), Eye-Both, BID doxepin 10 mg Cap, 10 mg= 1 cap(s), Oral, Daily furosemide 40 mg Tab, See Instructions gabapentin 300 mg Cap, 600 mg= 2 cap(s), Oral, BID, 1 refills Glucosamine Chondroitin oral capsule, 1 cap, Oral, BID High Potency Probiotic oral capsule, 1 cap, Oral, Daily isosorbide mononitrate 120 mg ER Tab, 120 mg= 1 tab(s), Oral, qAM Klor Con 10 mEq Cap-ER, 1 tab, Oral, BID, 1 refills latanoprost Opth 0.005% Ginette, 1 drop(s), OPTH, Once a day (at bedtime) nitroglycerin 0.4 mg sublingual Tab, 0.4 mg= 1 tab(s), SubLingual, q5min, PRN omeprazole, 20 mg, Oral, Daily primidone 50 mg Tab, 50 mg= 1 tab(s), Oral, Once a day (at bedtime) ranolazine 1000 mg oral tablet, extended release, 1000 mg= 1 tab(s), Oral, BID sertraline 50 mg Tab, 50 mg, Oral, Daily, 4 refills Synthroid, 125 mcg, Oral, Daily tiZANidine 4 mg Tab, 8 mg= 2 tab(s), Oral, Bedtime Vascepa 1 g oral capsule, 2 gm= 2 cap(s), Oral, BID Allergies amoxicillin (Hives) Social History Alcohol - Denies Alcohol Use, 06/10/2022 1-2 times per year, 06/17/2019 Substance Abuse - Denies Substance Abuse, 10/25/2015 Tobacco - Denies Tobacco Use, 10/31/2021 4 or less cigarettes(less than 1/4 pack)/day in last 30 days Tobacco Use:. Never Smokeless Tobacco Use:. Cigarettes, Household tobacco concerns: No. Yes, 07/25/2024 Family History Arthritis: Mother. Congenital heart disease: Negative: Mother. Heart failure: Mother. Hyperlipidemia: Mother. Hypertension: Mother. Primary malignant neoplasm of female genital organ: Mother. Immunizations Vaccine Date Status influenza virus vaccine, inactivated 03/03/2023 Recorded SARS-CoV-2 (COVID-19) [id number] 04/17/2022 Recorded influenza virus vaccine, inactivated 02/15/2022 Recorded SARS-CoV-2 (COVID-19) mRNA BNT-162b2 vax 05/15/2021 Recorded influenza virus vaccine, inactivated 04/27/2021 Recorded SARS-CoV-2 (COVID-19) mRNA BNT-162b2 vax 08/07/2020 Recorded SARS-CoV-2 (COVID-19) mRNA BNT-162b2 vax 07/16/2020 Recorded SARS-CoV-2 (COVID-19) mRNA BNT-162b2 vax 07/2020 Recorded SARS-CoV-2 (COVID-19) mRNA BNT-162b2 vax 06/2020 Recorded pneumococcal 23-valent vaccine 02/26/2019 Recorded influenza virus vaccine, inactivated 02/26/2019 Recorded influenza virus vaccine, inactivated 02/21/2019 Recorded pneumococcal 23-valent vaccine 02/17/2018 Recorded pneumococcal 13-valent vaccine 02/09/2018 Recorded influenza virus vaccine, inactivated 02/09/2018 Recorded influenza virus vaccine, inactivated 02/08/2017 Recorded influenza virus vaccine, inactivated 03/12/2015 Recorded influenza virus vaccine, inactivated 03/23/2014 Recorded pneumococcal 23-valent vaccine 03/10/2003 Recorded Result Comment: Electronical ly Signed By: Amilcar Cordova MD\.br\Date and Time Signed: 07/25/24 13:37 EDT PRE-VISIT PLANNING Observed: 07/22/2024 11:30 AM Status: C Source: [facility] Pre-Visit Planning From: Angeline CUEVA, Lexis To: Amilcar Cordova MD; Sent: 07/22/2024 11:30:41 EDT Subject: Pre-Visit Planning Due Date/Time: 07/22/2024 11:30:00 EDT Caller Name: DIANN LINDER; Caller Number: H , M Ne Dr. Cordova, *Based on your response below, can you please update the chronic problem list and address during this visit if appropriate?* During a pre-visit planning chart review, I noted the following documentation in the medical record: Betty report- Chronic kidney disease, stage 3b (N18.32) Persistent (Historical Claim) ??? Jan 06, 2024 ??? OBERMEYER, NIYA Kidney ??? Chronic Kidney Disease, Moderate (Stage 3B) Labs- 09/12/2022 eGFR 49, 10/31/2021 eGFR 49, 07/04/2019 eGFR 55, 11/24/2018 eGFR 49 07/06/2024 [facility] consult- anxiety and depression, iron deficiency anemia, CKD 3 Based on your medical judgment, if you agree with chronic kidney disease, can you please further clarify the stage of kidney disease? -Chronic Kidney Disease Stage 3a-Chronic Kidney Disease Stage 3b -Other (Please Specify): I can update the problem list with your specified response if you would like. In responding to this request, please exercise your independent professional judgement. The fact that a question is asked does not imply that any particular answer is desired or expected. If you have any questions, please feel free to contact me at extension [phone]. Thank you! Lexis Marcus, BSN, RN, CCM, CCDS, CCDS-O CDI [facility] [address] [address] P: [phone] F: [phone] [email or web address] From: Art SOMMERS, Amilcar Carr To: Angeline CUEVA, Lexis; Sent: 07/25/2024 08:39:38 EDT Subject: RE: Pre-Visit Planning Caller Name: DIANN LINDER; Caller Number: H , M -Chronic Kidney Disease Stage 3a OFFICE VISIT Observed: 07/06/2024 2:15 PM Status: COMPLETED Source: [facility] [id number] Diann Linder [birth year] F Date Provider Department [facility] 07[facility]20[facility] History Problem Relation Age of Onset Heart failure Mother Family Status - Relation Status Age at Mother Level of Service:27532 [place] OFFICE/OUTPATIENT ESTABLISHED MOD MDM 30 MIN PROGRESS Observed: 07/06/2024 2:15 PM Status: COMPLETED Source: [facility] Cardiology - [facility] pital Clinic Subjective Diann Linder is a 74 y.o. year old female patient being seen for 6 mo follow up CAD, WARREN, and chest pain. Had lipid panel last week. Says she gets an intermittent chest pressure but attributes this to her neck and back issues. Her WARREN is improving. Denies palpitations, LE edema, and lightheadedness/syncope. Continues to alternate lasix 20mg and 40mg tablets every other day. Patient Active Problem List Diagnosis Coronary arteriosclerosis [...] Papillary microcarcinoma of thyroid (CMS/HCC) Postoperative hypothyroidism Age-related nuclear cataract of both eyes BMI 35.0-35.9,adult Cellulitis of leg Cervical osteoarthritis Easy bruisability History of colon polyps Iron deficiency anemia Primary open angle glaucoma (POAG) of both eyes, mild stage SK (seborrheic keratosis) Brain fog Carpal tunnel syndrome, bilateral Hypersomnia Inadequate sleep hygiene Obesity due to excess calories Essential tremor Skin cancer Snoring Ulnar neuropathy at elbow of left upper extremity Ulnar neuropathy at elbow of right upper extremity Family History Problem Relation Name Age of Onset Heart failure Mother Social History Tobacco Use Smoking status: Every Day Types: Cigarettes Smokeless tobacco: Never Substance Use Topics Alcohol use: Yes Comment: occasional Drug use: Never ABY Diann is seen in follow-up. I saw [...] February 2022 she was admitted to the [facility] with acute on chronic diastolic heart failure and acute kidney injury. She had negative cardiac enzymes. This was thought due to dehydration at the time. She continues to have significant lower extremity edema. Her symptoms of shortness of breath have not changed. She did go to cardiac rehab a couple times but then stopped. Visit of 06/22/2023: She is seen in follow-up. At last visit with me I stopped amlodipine due to leg swelling. Today she reports that her leg swelling resolved. She currently has had no chest pain. She has improved in that regard. She still has shortness of breath on exertion NYHA class II-III. No palpitations. No dizziness or lightheadedness. No syncope. She feels much better than she felt in the past. She continues to take medications as prescribed. Visit of 07/06/2024: She is seen in follow-up. Today she reports that she has been having episodes of chest pain localized to the center of the chest representing pressure sensation sometimes radiating to the neck. She reports that the pain happens mostly at night. It is not related to exertion. Her shortness of breath is about stable for her. No leg edema. No palpitations. Review of Systems Cardiovascular: Positive for chest pain ( pressure ) and dyspnea on exertion (improving). Musculoskeletal: Positive for arthritis, back pain, joint pain, muscle weakness, myalgias and neck pain. Neurological: Positive for weakness. All other systems reviewed and are negative. Objective Visit Vitals BP 130/66 (BP Location: Left arm, Patient Position: Sitting) Pulse 52 Ht 1.575 m (5' 2 ) Wt 90.3 kg (199 lb) SpO2 95% BMI 36.40 kg/m??? Smoking Status Every Day BSA 1.99 m??? Physical Exam Constitutional: Appearance: She is well-developed. She is obese. She is not ill-appearing. HENT: Head: Normocephalic and atraumatic. Nose: Nose normal. Eyes: General: No scleral icterus. Pupils: Pupils are equal, round, and reactive to light. Neck: Thyroid: No thyromegaly. Vascular: No JVD. Cardiovascular: Rate and Rhythm: Normal rate and regular rhythm. Pulses: Radial pulses are 2+ on the right side and 2+ on the left side. Heart sounds: Normal heart sounds. No murmur heard. No friction rub. No gallop. Pulmonary: Effort: Pulmonary effort is normal. No respiratory distress. Breath sounds: Normal breath sounds. No wheezing or rales. Chest: Chest wall: No tenderness. Abdominal: General: Bowel sounds are normal. There is no distension. Palpations: Abdomen is soft. Tenderness: There is no abdominal tenderness. Musculoskeletal: General: No swelling. Cervical back: Neck supple. Right lower leg: No edema. Left lower leg: No edema. Skin: General: Skin is warm and dry. Neurological: General: No focal deficit present. Mental Status: She is alert and oriented to person, place, and time. Psychiatric: Mood and Affect: Mood normal. Behavior: Behavior is cooperative. Judgment: Judgment normal. Allergies Allergies Allergen Reactions Amoxicillin Hives Medications Current Outpatient Medications: albuterol 90 mcg/actuation inhaler, , Disp: , Rfl: aspirin 81 mg EC tablet, Take 1 tablet by mouth in the morning., Disp: , Rfl: atorvastatin (Lipitor) 40 mg tablet, TAKE 1 TABLET EVERY DAY, Disp: 90 tablet, Rfl: 3 bisoprolol (Zebeta) 10 mg tablet, TAKE 1 TABLET EVERY DAY, Disp: 90 tablet, Rfl: 3 doxepin (SINEquan) 10 mg capsule, TAKE 1 - 2 CAPSULES BY MOUTH EVERYDAY AT BEDTIME, Disp: , Rfl: furosemide (Lasix) 20 mg tablet, Take 1 tablet (20 mg) by mouth every other day., Disp: 45 tablet, Rfl: 3 furosemide (Lasix) 40 mg tablet, TAKE alternating 40mg and 20mg every other day, Disp: 90 tablet, Rfl: 3 gabapentin (Neurontin) 300 mg capsule, Take 1 capsule by mouth in the morning and at bedtime., Disp: , Rfl: HYDROcodone-acetaminophen ([place]) 5-325 mg tablet, Take 1 tablet by mouth if needed in the morning and at bedtime., Disp: , Rfl: icosapent ethyL (Vascepa) 1 gram capsule, Take 2 capsules (2 g) by mouth 2 times daily., Disp: 120 capsule, Rfl: 11 isosorbide mononitrate ER (Imdur) 120 mg 24 hr tablet, TAKE 1 TABLET ONE TIME DAILY DIRECTED (DO NOT CRUSH OR CHEW), Disp: 90 tablet, Rfl: 3 levothyroxine (Synthroid, Levoxyl) 125 mcg tablet, Take 125 mcg by mouth before breakfast., Disp: , Rfl: omeprazole (PriLOSEC) [address] capsule, Take 1 tablet by mouth in the morning., Disp: , Rfl: potassium chloride CR (Klor-Con M10) 10 mEq ER tablet, Take 10 mEq by mouth in the morning and at bedtime. Do not crush or chew., Disp: , Rfl: primidone (Mysoline) 50 mg tablet, Take 25 mg by mouth., Disp: , Rfl: ranolazine (Ranexa) 1,000 mg 12 hr tablet, TAKE 1 TABLET BY MOUTH 2 TIMES A DAY in the morning and at bedtime, Disp: 180 tablet, Rfl: 0 sertraline (Zoloft) 50 mg tablet, Take 1 tablet every day by oral route for 90 days., Disp: , Rfl: tiZANidine (Zanaflex) 4 mg tablet, Take 2 tablets every day by oral route for 90 days., Disp: , Rfl: alendronate (Fosamax) 35 mg tablet, Take 1 tablet every week by oral route for 84 days., Disp: , Rfl: nitroglycerin (Nitrostat) 0.4 mg SL tablet, Place 1 tablet (0.4 mg) under the tongue every 5 (five) minutes if needed for chest pain. May repeat dose every 5 minutes for up to 3 doses total., Disp: 25 tablet, Rfl: 3 Recent Labs No visits with results within 6 Month(s) from this visit. Latest known visit with results is: Legacy Encounter on 11/02/2020 Component Date Value Ventricular Rate 11/02/2020 60 Atrial Rate 11/02/2020 60 VA Interval 11/02/2020 134 QRS DURATION 11/02/2020 78 QT Interval 11/02/2020 402 QTC CALCULATION(BAZETT) 11/02/2020 402 P Hibernia 11/02/2020 -20 R-Hibernia 11/02/2020 26 T Wave Hibernia 11/02/2020 53 Diagnosis 11/02/2020 Value:Normal sinus rhythm Normal ECG No previous ECGs available Confirmed by Chris Coffey ([id number]) on 11/02/2020 9:50:45 AM Blood testing 03/20/2023: Hemoglobin 11.8, platelets 242, potassium 4.0, BUN 19, creatinine 1.3, EGFR 40, LFTs normal, NT proBNP 110, TSH normal. 06/27/2023: Chol 147, trig 222, LDL 48, HDL 55 07/16/2023: TSH 0.53 Lipids 06/24/2024: Triglycerides 114, cholesterol 160, HDL 65, LDL 73. Imaging and other tests Echocardiogram 03/23/2023: CONCLUSION: 1. Global left ventricular systolic function is normal; visually estimated ejection fraction 60 to 65% 2. The right ventricle is normal in size and systolic function 3. Grade 1, mild diastolic dysfunction 4. Biatrial enlargement 5. Mild tricuspid regurgitation 6. Moderately elevated right ventricular systolic pressure. RVSP 45 mmHg. Assessment/Plan Diagnoses and all orders for this visit: Coronary artery disease involving klawock coronary artery of klawock heart with other form of angina pectoris - nitroglycerin (Nitrostat) 0.4 mg SL tablet; Place 1 tablet (0.4 mg) under the tongue every 5 (five) minutes if needed for chest pain. May repeat dose every 5 minutes for up to 3 doses total. Primary hypertension Mixed hyperlipidemia Cardiovascular stress test abnormal Shortness of breath Diann has coronary artery disease with involvement of the whole entire segment of the mid LAD and a focal stenosis in the PLV branch. The caliber of the vessels is small. I previously reviewed the angiogram images with her. Those are also seen by the CT surgeon Dr. Ayers at the time of the cardiac catheterization. We thought that medical therapy is the best for her. I previously discussed with her that stenting procedure can be done but is not the best option given long segment stenting of the LAD. She however has been having symptoms of chest discomfort recently in the past several weeks. She says that they happen mostly at night and she feels pressure in the center of the chest. She does not have sublingual nitroglycerin and I will provide her with a prescription for sublingual nitroglycerin. I asked her to monitor the chest pain symptoms and get back to me. I explained to her that there is a possibility that we might need to proceed with cardiac catheterization if the symptoms continue to occur or if they respond to sublingual nitroglycerin. For now I will continue medical therapy. Her blood pressure and heart rate are well-controlled and she is maximally treated with antianginal medications. I reviewed her recent lipid profile and it shows adequate control. I will continue the same including the statin and Vascepa. I will plan on seeing her in follow-up in 6 to 8 weeks to follow-up on her clinical progression or sooner if needed. No follow-ups on file. Venkat Tobias MD CONSULTATION NOTE Observed: 06/03/2024 2:19 PM Status: F Source: [facility] Consultation Note Patient: DIANN LINDER Age: 74 years Sex: Female : 1950 Associated Diagnoses: None Author: Indiana Walsh PA-C Subjective Chief complaint 06/03/2024 14:01 EST back pain . Patient is a 74-year-old female following up today after undergoing bilateral medial branch RFA covering the L4-S1 facet joints. This was done on 05/02/2024 and at this time has given her 100% relief. She states that her lower back pain is overall completely resolved. She has some intermittent neck pain with some hand tingling and she states that she also has some shaking in her hands. She saw neurology and they thought maybe she would benefit from another gabapentin in the morning but wanted us to discuss this with her as we have been the prescribing doctors. She has the above-mentioned discomfort that she rates a 1/10. She uses gabapentin 300 mg in the morning and 600 mg at night and [place] 5/325 1 tablet twice a day as needed for pain. She feels that at this time, things are overall going fairly well. She does not want to have any injections. She does not want to do anything more aggressive. She is wonders about the possible increase of gabapentin. Health Status Allergies: Allergic Reactions (Selected) Severity Not Documented Amoxicillin- Hives., Allergies (1) Active Severity Reaction amoxicillin Hives Current medications: (Selected) Prescriptions Prescribed Klor Con 10 mEq Cap-ER: 1 tab, Oral, BID, # 180 cap(s), Refills(s) 1, Pharmacy: [facility], 158, cm, 02/05/24 10:08:00 EDT, Height/Length Dosing, 82.6, kg, 02/05/24 10:08:00 EDT, Weight Dosing [place] 325 mg-5 mg oral tablet: 1 tab(s), Oral, BID as needed for pain for 30 day(s), 60 tab(s), Refill(s) 0, [facility]/pharmacy #[id number], 158, cm, 05/02/24 15:00:00 EST, Height/Length Dosing, 65.9, kg, 04/05/24 13:43:00 EST, Weight Dosing gabapentin 300 mg Cap: 600 mg = 2 cap(s), Oral, BID, X 90 day(s), # 360 cap(s), Refills(s) 1, Pharmacy: [facility], 158, cm, 06/03/24 14:11:00 EST, Height/Length Dosing, 82, kg, 06/03/24 14:11:00 EST, Weight Dosing sertraline 50 mg Tab: 50 mg, Oral, Daily, # 90 tab(s), Refills(s) 4, Pharmacy: [facility], 158, cm, 10/20/23 14:45:00 EDT, Height/Length Dosing, 88.5, kg, 10/20/23 14:45:00 EDT, Weight Dosing Documented Medications Documented Glucosamine Chondroitin oral capsule: 1 cap, Oral, BID, Prophylaxis High Potency Probiotic oral capsule: 1 cap, Oral, Daily, Prophylaxis Synthroid: 125 mcg, Oral, Daily, Refills(s) 0, Thyroid Vascepa 1 g oral capsule: 2 gm = 2 cap(s), Oral, BID, Refills(s) 0 acetaminophen-hydrocodone 325 mg-5 mg oral tablet: 1 tab(s), Oral, BID as needed for pain, Refill(s) 0 aspirin 81 mg Oral EC Tab: 81 mg = 1 tab(s), Oral, Daily, Refills(s) 0, Blood Thinner atorvastatin 40 mg Tab: Refills(s) 0 biotin: = 1 tab(s), Oral, BID, Refills(s) 0, Prophylaxis bisoprolol 10 mg Tab: 10 mg = 1 tab(s), Oral, Daily, High blood pressure calcium-vitamin D extended release: 2 tab(s), Oral, qAM, Prophylaxis dorzolamide-timolol Opth 2%-0.5% Ginette: 1 drop(s), Eye-Both, BID, Refill(s) 0 doxepin 10 mg Cap: 10 mg = 1 cap(s), Oral, Daily, Depression furosemide 40 mg Tab: See Instructions, Takes 20mg every other day and then 40mg on the other days, Refills(s) 0 isosorbide mononitrate 120 mg ER Tab: 120 mg = 1 tab(s), Oral, qAM, Refills(s) 0, High blood pressure latanoprost Opth 0.005% Ginette: 1 drop(s), OPTH, Once a day (at bedtime), 2.5 mL, Refill(s) 0 omeprazole: 20 mg, Oral, Daily, Control of stomach acid primidone 50 mg Tab: 50 mg = 1 tab(s), Oral, Once a day (at bedtime), # 30 tab(s), Refills(s) 0 ranolazine 1000 mg oral tablet, extended release: 1,000 mg = 1 tab(s), Oral, BID, TAKE 1 TABLET BY MOUTH TWO TIMES A DAY tiZANidine 4 mg Tab: 8 mg = 2 tab(s), Oral, Bedtime, Refills(s) 0, Insomnia Problem list: All Problems Chronic back pain / SNOMED CT 664026913 / Confirmed Osteoarthritis / SNOMED CT 3084460049 / Confirmed Hematuria / SNOMED CT 577967379 / Confirmed Anemia / SNOMED CT 158493788 / Confirmed HTN (hypertension) / SNOMED CT 6282087909 / Confirmed Glaucoma / SNOMED CT 28142644 / Confirmed Hypothyroid / SNOMED CT 40382083 / Confirmed C. difficile diarrhea / SNOMED CT 7823038165 / Confirmed Anemia / SNOMED CT 327605064 / Confirmed Arthritis / SNOMED CT 2778470 / Confirmed Thyroid cancer / SNOMED CT 746073285 / Confirmed Heart disease / SNOMED CT 99931460 / Confirmed Hypertension / SNOMED CT 1532903390 / Confirmed Hyperlipidemia / SNOMED CT 68026639 / Confirmed Sleep apnea / SNOMED CT 812270372 / Confirmed Long-term current use of opiate analgesic drug / SNOMED CT 980975418916891 / Confirmed Added secondary to current Opioid Treatment Agreement Kidney stones / SNOMED CT 816182401 / Confirmed Renal mass / SNOMED CT 592321718 / Confirmed Abnormal kidney function / SNOMED CT 79962441 / Confirmed H/O hematuria / SNOMED CT 6531036681 / Confirmed SOB (shortness of breath) / SNOMED CT 458681774 / Confirmed SK (seborrheic keratosis) / SNOMED CT 6031344165 / Confirmed Cellulitis of leg / SNOMED CT 5185422021 / Confirmed BMI 35.0-35.9,adult / SNOMED CT 832174571 / Confirmed Skin cancer / SNOMED CT 5352588857 / Confirmed Resolved: At risk for falls / SNOMED CT 127933772 Problem added when Risk for Falls Careplan was initiated. Resolved due to patient discharge. Resolved: At risk for falls / SNOMED CT 503862477 Problem added when Risk for Falls Careplan was initiated. Resolved due to patient discharge. Resolved: Arthritis / SNOMED CT 9796229 Resolved: Anxiety / SNOMED CT 73476769 Resolved: Trigeminal neuralgia of left side of face / SNOMED CT 46060108 Resolved: Osteopenia / SNOMED CT 593150276 Resolved: Hypotension / SNOMED CT 35694625 Resolved: Thyroid cancer / SNOMED CT 7064521061 Resolved: Carpal tunnel / SNOMED CT 836880909 Resolved: Liver disease / SNOMED CT 633030415 Resolved: Microscopic hematuria / SNOMED CT 488935330 Canceled: At risk for falls / SNOMED CT 794782611 Problem added when Risk for Falls Careplan was initiated. Resolved due to patient discharge. Canceled: Impaired skin integrity / SNOMED CT 84425988 Problem added on documentation of skin impairments. Resolved due to patient discharge. Canceled: Thyroid nodule / SNOMED CT 155154555 Canceled: At risk for falls / SNOMED CT 771779025 Problem added when Risk for Falls Careplan was initiated. Canceled: Depression / SNOMED CT 64179016 Canceled: Smoker / IMO [id number] Added secondary to documentation in Social History. Canceled: Smoker / SNOMED CT 30956500 Added secondary to documentation in Social History. Canceled: Cancer, uterine / SNOMED CT 5958684503 Canceled: Hematoma / SNOMED CT 6049199514 Objective Vital Signs 06/03/2024 14:01 EST Peripheral Pulse Rate 60 bpm Respiratory Rate 14 br/min Systolic Blood Pressure 129 mmHg Diastolic Blood Pressure 74 mmHg Mean Arterial Pressure, Cuff 92 mmHg General: Alert and oriented, No acute distress. Eye: Normal conjunctiva. HENT: Normocephalic, Normal hearing. Cardiovascular: No edema. Musculoskeletal Normal range of motion. Normal strength. 5/5 strength Integumentary: Warm, Dry, [place]. Neurologic: Alert, Oriented. Psychiatric: Cooperative, Appropriate mood & affect. 14 point review of systems was negative unless otherwise noted. Impression and Plan Patient is a 74-year-old female with a past medical history significant for postlaminectomy syndrome and lumbosacral spondylosis. She is doing well after undergoing recent bilateral medial branch RFA covering the L4-S1 facet joints. She states that she is gotten significant relief. In regards to her medication she uses [place] 5/325 twice daily as needed pain and gabapentin 300 mg in the morning and 600 mg at night with significant relief. UDS was reviewed and is appropriate. OARRS was reviewed and is appropriate. Narcan has been offered and declined. She states that gabapentin was discussed to be increased with her last appointment with neurology but they wanted us to address as we had been prescribing this. We discussed increasing this to 600 mg the morning and 600 mg at night to try to help with some of her symptoms. We will have her increase this and we will send a refill. She will follow-up in 3 months. Call the clinic sooner if necessary. LILIANE score: 38% Result Comment: Electronical ly Signed By: Indiana Walsh PA-C\.sandra\Date and Time Signed: 06/03/24 14:22 EST OPERATIVE REPORT Observed: 05/02/2024 4:17 PM Status: F Source: [facility] Operative Report Diagnosis: M47.817, bilateral lumbosacral spondyloarthropathy Procedure: Bilateral lumbar medial branches/posterior rami radiofrequency ablation to target the facet joints of L4/5 and L5/S1 Anesthesia: Local Complications: None After informed consent was obtained, the patient was brought to the procedure room and placed in the prone position. The back area is prepped and draped in usual sterile fashion. The patient was placed on monitors. Using fluoroscopic guidance skin and subcutaneous tissue overlying needle trajectories to the target sites were anesthetized with 2% lidocaine. 20-gauge radiofrequency needles were advanced under fluoroscopic guidance to the appropriate anatomic landmarks. Needle tip position was confirmed on both sides in both the AP and lateral views. Next, all levels on the right were stimulated at 2Hz for motor stimulation at 2.0V with no lower extremity motor contractions. Next 1.0mL of 2.0% lidocaine was injected through each needle tip. Thereafter, radiofrequency lesioning was carried out at 80 degrees for 80 seconds twice. Next, all levels on the left were stimulated at 2Hz for motor stimulation at 2.0V with no lower extremity motor contractions. Next 1.0mL of 2.0% lidocaine was injected through each needle tip. Thereafter, radiofrequency lesioning was carried out at 80 degrees for 80 seconds twice. The needles were removed. The patient was then transferred to the recovery room in stable condition. Postprocedure lower extremity strength 5/5 bilaterally in hip flexors, quads, hamstrings, plantarflexion/dorsiflexion/FHL/EHL. Follow-up: Discharge instructions provided. The patient agrees to continue currently prescribed/recommended therapies. Result Comment: Electronical ly Signed By: Prudencio Payan DO.sandra\Date and Time Signed: 05/02/24 16:17 EST MAIN OR INTRAOPERATIVE RECORD Observed: 05/02/2024 3:59 PM Status: F Source: [facility] Main OR Intraoperative Recor d IntraOp Document Type FTPM Summary Primary Physician: Prudencio Payan DO Finalized Date/Time: 05/02/24 16:17:00 Pt. Name: DIANN LINDER Taqueria/Sex: 1950 Female Med Rec #: [id number] Physician: Prudencio Payan DO Financial #: [id number] Pt. Type: P Room/Bed: / Admit/Disch: 05/02/24 13:46:55 - Institution: Case Times FTPM Entry 1 Patient Times In Room 05/02/24 15:56:00 Out Room 05/02/24 16:16:00 Procedure Times Start 05/02/24 15:59:00 Stop 05/02/24 16:15:00 Anesthesia Times Last Modified By: Tk Sinha RN 05/02/24 16:16:52 Case Attendance FTPM Entry 1 Entry 2 Entry 3 Case Attendee Prudencio Payan DO, RN, Tk Brown RN, Antoinette Nugent Role Performed Surgeon - Primary Shower Doors And Panels Fabricator - Primary Scrub - Primary Time In 05/02/24 15:56:00 05/02/24 15:56:00 05/02/24 15:56:00 Time Out 05/02/24 16:16:00 05/02/24 16:16:00 05/02/24 16:16:00 Procedure LUMBAR RADIO FREQUENCY LUMBAR RADIO FREQUENCY LUMBAR RADIO FREQUENCY ABLATION(Bilateral) ABLATION(Bilateral) ABLATION(Bilateral) Comments Last Modified By: Bharath CUEVA, Tk Sinha RN, Tk Bay RN 05/02/24 16:16:53 M 05/02/24 16:16:53 M 05/02/24 16:16:53 Entry 4 Case Attendee Xiao Pelletier Role Performed Medical Screener Time In 05/02/24 15:56:00 Time Out 05/02/24 16:16:00 Procedure LUMBAR RADIO FREQUENCY ABLATION(Bilateral) Comments Last Modified By: Tk Sinha RN 05/02/24 16:16:53 Perioperative Protocols FTPM Pre-Care Text: Implements protective measures prior to operative or invasive procedure, confirms identity before the operative or invasive procedure, verifies operative procedure, surgical site, and laterality Entry 1 Procedure(s) LUMBAR RADIO FREQUENCY Patient Identity Birthday, ID Band ABLATION(Bilateral) Verified (select at Check, Patient least 2): Participation Consents / H and P H&P, Surgery/Procedure Operative Site Present Verified Consent Marking Verified Surgical Site Yes Laterality Verified Yes Verified Procedure Verified Yes Correct Patient Yes Position Verified Availability Equipment, Medication, Prep Dry Yes Verified (If X-ray Applicable) PreOp Antibiotic No Time Out Tk Sinha RN, Pritchard RN, Schuyler Singletary DO, Bradford A., Ott, Amy Time Out Complete 05/02/24 16:00:00 Outcomes Met? Yes Last Modified By: Tk Sinha RN 05/02/24 16:01:15 Post-Care Text: The patient is free from signs and symptoms of injury caused by extraneous objects Allergy Information FTPM Pre-Care Text: Verifies allergies Entry 1 Allergies Reviewed? Yes Allergies Reviewed Self/Patient With Outcomes Met? Yes Last Modified By: Tk Sinha RN 05/02/24 16:01:24 Post-Care Text: The patient received appropriate medication(s) safely administered during the perioperative period Surgical Procedures FTPM Entry 1 Procedure Description Procedure LUMBAR RADIO FREQUENCY Modifiers Bilateral ABLATION Surgeon Description MB RFA COVERING L4-S1 FACET JTS Primary Procedure Yes Primary Surgeon Prudencio Payan DO Start 05/02/24 15:59:00 Stop 05/02/24 16:15:00 Anesthesia Type None Surgical Service Pain Management Wound Class 1 - Clean Last Modified By: Tk Sinha RN 05/02/24 16:16:55 General Case Data FTPM Pre-Care Text: Classifies surgical wound, implements aseptic technique, initiates traffic control Entry 1 Case Information OR Pain Proc Room Case Level Level 2 Wound Class 1 - Clean Specialty Pain Management Preop Diagnosis M47.817 Postop Same As Preop Yes Postop Diagnosis M47.817 Outcomes Met? Yes Last Modified By: Tk Sinha RN 05/02/24 16:01:36 Post-Care Text: The patient is free from signs and symptoms of infection Skin Assessment (Pre Procedure) FTPM Pre-Care Text: Implements protective measures to prevent skin/ tissue injury due to thermal or mechanical sources Evaluates for signs and symptoms of physical injury to skin and tissue Entry 1 Skin Integrity Intact, [place], Warm, & Skin Abnormality No Dry Outcomes Met? Yes Last Modified By: Tk Sinha RN 05/02/24 14:33:10 Post-Care Text: The patient is free from signs and symptoms of injury caused by extraneous objects Patient Positioning FT Pre-Care Text: Identifies physical alterations that require additional precautions for procedure-specific positioning, verifies presence of prosthetics or corrective devices, positions the patient, evaluates the patient for signs and symptoms of injury as a result of positioning Entry 1 Procedure LUMBAR RADIO FREQUENCY Body Position Prone ABLATION(Bilateral) Feet Uncrossed? Yes Left Arm Position Resting at Side Right Arm Position Resting at Side Left Leg Position Extended Right Leg Position Extended Positioning Device Pillow Under Head Large, Safety Strap, Pillow Large Under Knees Press Points Checked Yes By Tk Sinha RN Outcomes Met? Yes Last Modified By: Tk Sinha RN 05/02/24 16:01:57 Post-Care Text: The patient is free from signs and symptoms of injury related to positioning Patient Care Devices FTPM Pre-Care Text: Implements protective measures to prevent skin/ tissue injury due to thermal or mechanical sources Entry 1 Equipment Type Electrothermal Unit Outcomes Met? Yes Last Modified By: Tk Sinha RN 05/02/24 16:02:12 Post-Care Text: The patient is free from signs and symptoms of injury caused by extraneous objects Transport To OR FT Pre-Care Text: Transports according to individual needs. Evaluates for signs and symptoms of skin and tissue injury as a result of transfer or transport Entry 1 Via Cart By Tk Sinha RN Safety Precautions Safety Strap, Side Outcomes Met? Yes Rails Up Last Modified By: Tk Sinha RN 05/02/24 16:02:18 Post-Care Text: The patient is free from signs and symptoms of injury related to transfer/transport Cautery FT Pre-Care Text: Implements protective measures to prevent injury due to electrical sources, and evaluates for signs and symptoms of electrical injury Entry 1 ESU Identification ESU Type Electrothermal Unit ESU Settings ESU Grounding Pad Site Left Lower Leg Hair Removal Pad Yes Site Pre Pad Site Clear and Intact Post Pad Site Clear and Intact Condition Condition Grounding Pad Tk Sinha RN Placed By Outcomes Met? Yes Last Modified By: Tk Sinha RN 05/02/24 16:02:52 Post-Care Text: The patient if free from signs and symptoms of electrical injury Skin Prep FTPM Pre-Care Text: Performs skin preparations Entry 1 Procedure LUMBAR RADIO FREQUENCY Prep Area BLOCK INJECTION SITE ABLATION(Bilateral) Prep Agents Chloraprep/Dry Prior to Start Dry Time 05/02/24 15:56:00 Draping Stop Dry Time 05/02/24 15:59:00 Hair Removal Methods Not Indicated By Antoinette Brown RN Outcomes Met? Yes Last Modified By: Tk Sinha RN 05/02/24 16:03:40 Post-Care Text: The patient is free from signs and symptoms of infection Departure From OR FTPM Pre-Care Text: Transports according to individual needs. Evaluates for signs and symptoms of skin and tissue injury as a result of transfer or transport. Entry 1 Via Cart Safety Precautions Safety Strap, Side Rails Up PostOp Destination PACU Transported By Tk Sinha RN Patient Status Stable Report Given Kayla Worley RN To/Hand Off Communication Skin. Condition Dry, Intact Airway Maintenance Oxygen in Use? No Outcomes Met? Yes Last Modified By: Tk Sinha RN 05/02/24 16:03:50 Post-Care Text: The patient is free from signs and symptoms of injury related to transfer/transport Dressing/Packing FTPM Pre-Care Text: Administers care to wound sites Entry 1 Type Dressing Site and Details 4x4 and opsite Outcomes Met? Yes Last Modified By: Tk Sinha RN 05/02/24 16:03:59 Post-Care Text: The patient is free from signs and symptoms of infection Medication Administration FTPM Pre-Care Text: Verifies allergies, administers prescribed medications and solutions, administers prescribed antibiotic therapy and immunizing agents as ordered, evaluates response to medications Administers prescribed medications and solutions Entry 1 Route of Admin Block Expiration Date Yes Verified Ordered By Prudencio Payan DO Transcribed/To Tk Sinha RN Field By Administered By Prudencio Payan DO Outcomes Met? Yes Last Modified By: Tk Sinha RN 05/02/24 16:04:03 Post-Care Text: The patient received appropriate medication(s) safely administered during the perioperative period X-Rays & Images FTPM Pre-Care Text: Assess history of previous radiation exposure and implements protective measures Entry 1 X-Ray Type C-Arm Contrast Used? No Outcomes Met? Yes Last Modified By: Tk Sinha RN 05/02/24 16:04:11 Post-Care Text: The patient is free from signs and symptoms of radiation injury Case Comments <None> Finalized By: Tk Sinha RN Document Signatures Signed By: Tk Sinha RN 05/02/24 16:17 MAIN OR PREOPERATIVE RECORD Observed: 3:00 PM Status: F Source: [facility] Main OR Preoperative Record Holding Area Document Type FTPM Summary Primary Physician: Prudencio Payan DO Finalized Date/Time: 05/02/24 14:59:56 Pt. Name: DIANN LINDER/Sex: 1950 Female Med Rec #: [id number] Physician: Prudencio Payan DO Financial #: [id number] Pt. Type: P Room/Bed: / Admit/Disch: 05/02/24 13:46:55 - Institution: Case Times Holding FTPM Pre-Care Text: Verifies consent for planned procedure, identifies individual values and wishes concerning care, includes family members in perioperative teaching Secures patient's records' belongings, and valuables, maintains patient's dignity and privacy, and maintains patient confidentiality Entry 1 In Holding 05/02/24 14:58:00 Outcomes Met? Yes Last Modified By: Mindy Jang RN 05/02/24 14:58:20 Post-Care Text: The patient participates in decisions affecting his or her perioperative plan of care The patient's right to privacy is maintained Surgery Checklist FTPM Entry 1 Patient Birthday, ID Band Procedure History and Physical, Identification: Check, Patient Verification: Surgical Consent, With Participation Patient NPO after Midnight: n/a Personal Items: Glasses Personal Items Earrings Complaints of Pain: Yes Comment: Pain Comment: 11/17 low back pain Operative Site Yes Marking: Marked By: Schuyler Location: Lumbar Availability Equipment, X-Ray Verified: Does Patient Smoke Yes If Yes to Smoking. 1 cigarette per day Cigars or Cigarettes. How much per day? Patient states Yes Comment - Adult - Karen postop adult Supervision supervision available Case Cancelled in No Holding Area see comments below for reason Last Modified By: Mindy Jang RN 05/02/24 14:59:52 General Comments: Ziyad Duran @ [id number] Finalized By: Mindy Jang RN Document Signatures Signed By: Mindy Jang RN 05/02/24 14:59 CONSULTATION NOTE Observed: 04/05/2024 1:50 PM Status: F Source: [facility] Consultation Note Patient: DIANN LINDER Age: 74 years Sex: Female : 1950 Associated Diagnoses: None Author: Indiana Walsh PA-C Subjective Chief complaint 04/05/2024 13:27 EST low back . Patient is a 74-year-old female following up today after a 2-month hiatus. She is here today for medication management. She uses gabapentin 300 mg in the morning and 600 mg at night and [place] 5/325 1 tablet twice a day as needed for pain. Her last prescription was 2 months ago for the [place] and she is here today to get refills. She has lower back pain. She rates the discomfort a 7/10 at its worst. She states that with losing 40 pounds things have gotten somewhat better but she is still having back pain. She is a history of bilateral medial branch block covering the L4-S1 facet joints done on 07/15/2023 and 09/02/2023 that both gave her 80 to 100% relief for at least 4 hours for both. She had to put the ablation on hold though due to some other medical conditions and she is here today to discuss having this once again planned. She is a 70 discomfort in her back that she states is worse with standing, worse with being upright, worse with being active. She is eager to get the ablation done now. Health Status Allergies: Allergic Reactions (Selected) Severity Not Documented Amoxicillin- Hives., Allergies (1) Active Severity Reaction amoxicillin Hives Current medications: (Selected) Prescriptions Prescribed Klor Con 10 mEq Cap-ER: 1 tab, Oral, BID, # 180 cap(s), Refills(s) 1, Pharmacy: [facility], 158, cm, 02/05/24 10:08:00 EDT, Height/Length Dosing, 82.6, kg, 02/05/24 10:08:00 EDT, Weight Dosing [place] 325 mg-5 mg oral tablet: 1 tab(s), Oral, BID as needed for pain for 30 day(s), 60 tab(s), Refill(s) 0, [facility], 158, cm, 04/05/24 13:43:00 EST, Height/Length Dosing, 65.9, kg, 04/05/24 13:43:00 EST, Weight Dosing gabapentin 300 mg Cap: See Instructions, one cap in AM, 2 caps at bedtime., # 270 cap(s), Refills(s) 0, Pharmacy: [facility], 158, cm, 04/05/24 13:43:00 EST, Height/Length Dosing, 65.9, kg, 04/05/24 13:43:00 EST, Weight Dosing sertraline 50 mg Tab: 50 mg, Oral, Daily, # 90 tab(s), Refills(s) 4, Pharmacy: [facility], 158, cm, 10/20/23 14:45:00 EDT, Height/Length Dosing, 88.5, kg, 10/20/23 14:45:00 EDT, Weight Dosing Documented Medications Documented Glucosamine Chondroitin oral capsule: 1 cap, Oral, BID, Prophylaxis High Potency Probiotic oral capsule: 1 cap, Oral, Daily, Prophylaxis Synthroid: 125 mcg, Oral, Daily, Refills(s) 0, Thyroid Vascepa 1 g oral capsule: 2 gm = 2 cap(s), Oral, BID, Refills(s) 0 acetaminophen-hydrocodone 325 mg-5 mg oral tablet: 1 tab(s), Oral, BID as needed for pain, Refill(s) 0 aspirin 81 mg Oral EC Tab: 81 mg = 1 tab(s), Oral, Daily, Refills(s) 0, Blood Thinner biotin: = 1 tab(s), Oral, BID, Refills(s) 0, Prophylaxis bisoprolol 10 mg Tab: 10 mg = 1 tab(s), Oral, Daily, High blood pressure calcium-vitamin D extended release: 2 tab(s), Oral, qAM, Prophylaxis dorzolamide-timolol Opth 2%-0.5% Ginette: 1 drop(s), Eye-Both, BID, Refill(s) 0 doxepin 10 mg Cap: 10 mg = 1 cap(s), Oral, Daily, Depression furosemide 40 mg Tab: See Instructions, Takes 20mg every other day and then 40mg on the other days, Refills(s) 0 isosorbide mononitrate 120 mg ER Tab: 120 mg = 1 tab(s), Oral, qAM, Refills(s) 0, High blood pressure latanoprost Opth 0.005% Ginette: 1 drop(s), OPTH, Once a day (at bedtime), 2.5 mL, Refill(s) 0 omeprazole: 20 mg, Oral, Daily, Control of stomach acid primidone 50 mg Tab: 50 mg = 1 tab(s), Oral, Once a day (at bedtime), # 30 tab(s), Refills(s) 0 ranolazine 1000 mg oral tablet, extended release: 1,000 mg = 1 tab(s), Oral, BID, TAKE 1 TABLET BY MOUTH TWO TIMES A DAY tiZANidine 4 mg Tab: 8 mg = 2 tab(s), Oral, Bedtime, Refills(s) 0, Insomnia Problem list: All Problems Chronic back pain / SNOMED CT 371060481 / Confirmed Osteoarthritis / SNOMED CT 7053173760 / Confirmed Hematuria / SNOMED CT 976786636 / Confirmed Anemia / SNOMED CT 381072697 / Confirmed HTN (hypertension) / SNOMED CT 3770613880 / Confirmed Glaucoma / SNOMED CT 67802105 / Confirmed Hypothyroid / SNOMED CT 37344609 / Confirmed C. difficile diarrhea / SNOMED CT 6335378818 / Confirmed Anemia / SNOMED CT 824429219 / Confirmed Arthritis / SNOMED CT 1743329 / Confirmed Thyroid cancer / SNOMED CT 109259185 / Confirmed Heart disease / SNOMED CT 23937645 / Confirmed Hypertension / SNOMED CT 3154292417 / Confirmed Hyperlipidemia / SNOMED CT 64540241 / Confirmed Sleep apnea / SNOMED CT 011299670 / Confirmed Long-term current use of opiate analgesic drug / SNOMED CT 972208184342479 / Confirmed Added secondary to current Opioid Treatment Agreement Kidney stones / SNOMED CT 482533597 / Confirmed Renal mass / SNOMED CT 657478289 / Confirmed Abnormal kidney function / SNOMED CT 04228229 / Confirmed H/O hematuria / SNOMED CT 3501398270 / Confirmed SOB (shortness of breath) / SNOMED CT 463786665 / Confirmed SK (seborrheic keratosis) / SNOMED CT 8499441398 / Confirmed Cellulitis of leg / SNOMED CT 4939837948 / Confirmed BMI 35.0-35.9,adult / SNOMED CT 806551834 / Confirmed Skin cancer / SNOMED CT 8355057701 / Confirmed Resolved: At risk for falls / SNOMED CT 414835027 Problem added when Risk for Falls Careplan was initiated. Resolved due to patient discharge. Resolved: At risk for falls / SNOMED CT 521975115 Problem added when Risk for Falls Careplan was initiated. Resolved due to patient discharge. Resolved: Arthritis / SNOMED CT 8435464 Resolved: Anxiety / SNOMED CT 78910725 Resolved: Trigeminal neuralgia of left side of face / SNOMED CT 75861554 Resolved: Osteopenia / SNOMED CT 909772486 Resolved: Hypotension / SNOMED CT 36353871 Resolved: Thyroid cancer / SNOMED CT 3520029731 Resolved: Carpal tunnel / SNOMED CT 208116407 Resolved: Liver disease / SNOMED CT 372008014 Resolved: Microscopic hematuria / SNOMED CT 480769815 Canceled: At risk for falls / SNOMED CT 871571838 Problem added when Risk for Falls Careplan was initiated. Resolved due to patient discharge. Canceled: Impaired skin integrity / SNOMED CT 89068655 Problem added on documentation of skin impairments. Resolved due to patient discharge. Canceled: Thyroid nodule / SNOMED CT 736826416 Canceled: At risk for falls / SNOMED CT 077745232 Problem added when Risk for Falls Careplan was initiated. Canceled: Depression / SNOMED CT 35957197 Canceled: Smoker / IMO [id number] Added secondary to documentation in Social History. Canceled: Smoker / SNOMED CT 82016969 Added secondary to documentation in Social History. Canceled: Cancer, uterine / SNOMED CT 1483211091 Canceled: Hematoma / SNOMED CT 9992830925 Objective Vital Signs 04/05/2024 13:27 EST Peripheral Pulse Rate 64 bpm Respiratory Rate 16 br/min Systolic Blood Pressure 101 mmHg Diastolic Blood Pressure 62 mmHg Mean Arterial Pressure, Cuff 75 mmHg General: Alert and oriented, No acute distress. Eye: Normal conjunctiva. HENT: Normocephalic, Normal hearing. Cardiovascular: No edema. Musculoskeletal Normal range of motion. Normal strength. 5/5 lower extremity strength Pain with compression of the bilateral lumbar facet joints Increased lower back pain with bilateral facet loading Integumentary: Warm, Dry, [place]. Neurologic: Alert, Oriented. Psychiatric: Cooperative, Appropriate mood & affect. 14 point review of systems was negative unless otherwise noted. Results Review * Final Report * Reason For Exam M54.12 M48.062 M 54.16 eXelateCRIBE REPORT IMPRESSION: MILD ROTARY LEVOSCOLIOSIS AND ADVANCED [...] REPORT This document has an image Result type: MRI Spine Lumbar w/o Contrast Result date: June 12, 2022 18:04 EST Result status: Auth (Verified) Result title: MRI Spine Lumbar w/o Contrast Performed by: Santos Trejo MD on June 15, 2022 11:33 EST Verified by: Santos Trejo MD on June 15, 2022 11:33 EST Encounter info: [id number], [facility], Outpatient, 06/12/2022 - 06/12/2022 Impression and Plan Patient is a 74-year-old female with a past medical history significant for postlaminectomy syndrome and lumbosacral spondylosis. In regards to her medication she uses [place] 5/325 twice daily as needed pain and gabapentin 300 mg in the morning and 600 mg at night with significant relief. She is requesting refills of both. Most recent UDS was reviewed and is appropriate. OARRS was reviewed and is appropriate. Narcan has been offered and declined and refills were sent to her pharmacy. She uses them and they do give her relief. She states that also losing 40 pounds has helped. She has undergone 2 medial branch blocks covering the L4-S1 facet joints done on 07/15/2023 and 08/29/2023 both with significant short term relief. The RFA had to be postponed due to some other medical conditions. Since she is done well with these we discussed pursuing the bilateral medial branch RFA under fluoroscopy for therapeutic purposes. Procedure was discussed. Risk and benefits were discussed. Patient is agreeable. She will follow-up 3-4 weeks after the injection for reevaluation. Call clinic sooner if necessary. LILIANE score: 15%. Result Comment: Electronical ly Signed By: Indiana Walsh PA-C\.br\Date and Time Signed: 04/05/24 13:54 EST [facility] DR[facility] SCREEN-LC Collected: 10:20 AM Status: F Source: [facility] TYPE CODE TESTS RESULT OUT OF RANGE REFERENCE UNITS LAB [id number]([facility]) Test Name tox flex 23 Unknown Performed By: #### [id number] #### [facility] [address] [place] [address] CONSULTATION NOTE Observed: 02/05/2024 10:16 AM Status: F Source: [facility] Consultation Note Patient: DIANN LINDER Age: 74 years Sex: Female : 1950 Associated Diagnoses: None Author: Indiana Walsh PA-C Subjective Chief complaint 02/05/2024 9:56 EDT Back and Neck Pain . Patient is a 74-year-old female. She presents today after a few month hiatus. She was previously planning to have an ablation. She unfortunately, had to put this on hold because she got sick. She had an infection in her leg from a cat bite. She had basal cell cancer she had to have removed. She had to have surgery on her mouth and on her eyes. She states that it has just been a rough a few months and she has spent most of the time at different doctors appointments. She does not want to do anything at this time as she states that she lost 40 pounds with cutting out carbs and her back pain has gotten better. She rates it a 2/10. She is however intermittently using [place] 5/325 twice daily as needed pain. She also uses gabapentin. She feels that this helps her. She is here today to get reestablished with our services to get a refill of the [place]. This helps her to better participate in activities and get through the day completely. She tolerates it. No side effects. She takes it as prescribed. She tries to take as sparingly as possible. Health Status Allergies: Allergic Reactions (Selected) Severity Not Documented Amoxicillin- Hives., Allergies (1) Active Severity Reaction amoxicillin Hives Current medications: (Selected) Prescriptions Prescribed Klor Con 10 mEq Cap-ER: 1 tab, Oral, BID, # 180 cap(s), Refills(s) 1, Pharmacy: [facility]/pharmacy #[id number], 158, cm, 10/20/23 14:45:00 EDT, Height/Length Dosing, 88.5, kg, 10/20/23 14:45:00 EDT, Weight Dosing [place] 325 mg-5 mg oral tablet: 1 tab(s), Oral, BID as needed for pain for 30 day(s), 60 tab(s), Refill(s) 0, [facility], 158, cm, 02/05/24 10:08:00 EDT, Height/Length Dosing, 82.6, kg, 02/05/24 10:08:00 EDT, Weight Dosing gabapentin 300 mg Cap: See Instructions, one cap in AM, 2 caps at bedtime., # 270 cap(s), Refills(s) 0, Pharmacy: [facility], 158, cm, 10/20/23 14:45:00 EDT, Height/Length Dosing, 88.5, kg, 10/20/23 14:45:00 EDT, Weight Dosing sertraline 50 mg Tab: 50 mg, Oral, Daily, # 90 tab(s), Refills(s) 4, Pharmacy: [facility], 158, cm, 10/20/23 14:45:00 EDT, Height/Length Dosing, 88.5, kg, 10/20/23 14:45:00 EDT, Weight Dosing Documented Medications Documented Glucosamine Chondroitin oral capsule: 1 cap, Oral, BID, Prophylaxis High Potency Probiotic oral capsule: 1 cap, Oral, Daily, Prophylaxis Synthroid: 125 mcg, Oral, Daily, Refills(s) 0, Thyroid Vascepa 1 g oral capsule: 2 gm = 2 cap(s), Oral, BID, Refills(s) 0 acetaminophen-hydrocodone 325 mg-5 mg oral tablet: Refill(s) 0 aspirin 81 mg Oral EC Tab: 81 mg = 1 tab(s), Oral, Daily, Refills(s) 0, Blood Thinner biotin: = 1 tab(s), Oral, BID, Refills(s) 0, Prophylaxis bisoprolol 10 mg Tab: 10 mg = 1 tab(s), Oral, Daily, High blood pressure calcium-vitamin D extended release: 2 tab(s), Oral, qAM, Prophylaxis dorzolamide-timolol Opth 2%-0.5% Ginette: Refill(s) 0 doxepin 10 mg Cap: 10 mg = 1 cap(s), Oral, Daily, Depression furosemide 40 mg Tab: See Instructions, Takes 20mg every other day and then 40mg on the other days, Refills(s) 0 isosorbide mononitrate 120 mg ER Tab: 120 mg = 1 tab(s), Oral, qAM, Refills(s) 0, High blood pressure latanoprost Opth 0.005% Ginette: 1 drop(s), OPTH, Once a day (at bedtime), 2.5 mL, Refill(s) 0 omeprazole: 20 mg, Oral, Daily, Control of stomach acid primidone 50 mg Tab: 50 mg = 1 tab(s), Oral, Once a day (at bedtime), # 30 tab(s), Refills(s) 0 ranolazine 1000 mg oral tablet, extended release: 1,000 mg = 1 tab(s), Oral, BID, TAKE 1 TABLET BY MOUTH TWO TIMES A DAY tiZANidine 4 mg Tab: 8 mg = 2 tab(s), Oral, Bedtime, Refills(s) 0, Insomnia Problem list: All Problems Chronic back pain / SNOMED CT 093400717 / Confirmed Osteoarthritis / SNOMED CT 6732105674 / Confirmed Hematuria / SNOMED CT 772248952 / Confirmed Anemia / SNOMED CT 632165366 / Confirmed HTN (hypertension) / SNOMED CT 0773410308 / Confirmed Glaucoma / SNOMED CT 05928563 / Confirmed Hypothyroid / SNOMED CT 62084845 / Confirmed C. difficile diarrhea / SNOMED CT 5323333761 / Confirmed Anemia / SNOMED CT 608188504 / Confirmed Arthritis / SNOMED CT 6526887 / Confirmed Thyroid cancer / SNOMED CT 374871540 / Confirmed Heart disease / SNOMED CT 97117551 / Confirmed Hypertension / SNOMED CT 6263845681 / Confirmed Hyperlipidemia / SNOMED CT 56581649 / Confirmed Sleep apnea / SNOMED CT 710057754 / Confirmed Long-term current use of opiate analgesic drug / SNOMED CT 785094896402150 / Confirmed Added secondary to current Opioid Treatment Agreement Kidney stones / SNOMED CT 103449109 / Confirmed Renal mass / SNOMED CT 435829162 / Confirmed Abnormal kidney function / SNOMED CT 71926115 / Confirmed H/O hematuria / SNOMED CT 8010971816 / Confirmed SOB (shortness of breath) / SNOMED CT 215012307 / Confirmed SK (seborrheic keratosis) / SNOMED CT 6302654347 / Confirmed Cellulitis of leg / SNOMED CT 8554149408 / Confirmed BMI 35.0-35.9,adult / SNOMED CT 870589545 / Confirmed Skin cancer / SNOMED CT 7382082174 / Confirmed Resolved: At risk for falls / SNOMED CT 968928829 Problem added when Risk for Falls Careplan was initiated. Resolved due to patient discharge. Resolved: At risk for falls / SNOMED CT 414606937 Problem added when Risk for Falls Careplan was initiated. Resolved due to patient discharge. Resolved: Arthritis / SNOMED CT 9918685 Resolved: Anxiety / SNOMED CT 96762168 Resolved: Trigeminal neuralgia of left side of face / SNOMED CT 05839612 Resolved: Osteopenia / SNOMED CT 265689238 Resolved: Hypotension / SNOMED CT 62014038 Resolved: Thyroid cancer / SNOMED CT 6048169391 Resolved: Carpal tunnel / SNOMED CT 204183053 Resolved: Liver disease / SNOMED CT 576633946 Resolved: Microscopic hematuria / SNOMED CT 834420999 Canceled: At risk for falls / SNOMED CT 589931800 Problem added when Risk for Falls Careplan was initiated. Resolved due to patient discharge. Canceled: Impaired skin integrity / SNOMED CT 05994904 Problem added on documentation of skin impairments. Resolved due to patient discharge. Canceled: Thyroid nodule / SNOMED CT 228110745 Canceled: At risk for falls / SNOMED CT 840335640 Problem added when Risk for Falls Careplan was initiated. Canceled: Depression / SNOMED CT 06497418 Canceled: Smoker / IMO 067603 Added secondary to documentation in Social History. Canceled: Smoker / SNOMED CT 81314115 Added secondary to documentation in Social History. Canceled: Cancer, uterine / SNOMED CT 6494770573 Canceled: Hematoma / SNOMED CT 4542431546 Objective Vital Signs 02/05/2024 9:56 EDT Peripheral Pulse Rate 55 bpm LOW Respiratory Rate 14 br/min Systolic Blood Pressure 108 mmHg Diastolic Blood Pressure 68 mmHg Mean Arterial Pressure, Cuff 81 mmHg General: Alert and oriented, No acute distress. Eye: Normal conjunctiva. HENT: Normocephalic, Normal hearing. Cardiovascular: No edema. Musculoskeletal Normal range of motion. Normal strength. 5/5 strength Integumentary: Warm, Dry, [place]. Neurologic: Alert, Oriented. Psychiatric: Cooperative, Appropriate mood & affect. 14 point review of systems was negative unless otherwise noted. Impression and Plan Patient is a 74-year-old female with a past medical history significant for lumbosacral spondylosis and postlaminectomy syndrome. She previously decided to cancel her ablation because of some other medical conditions. She still does not want to do this as she states that she has lost 40 pounds and her back pain has somewhat improved. Is not perfect but it is better and at this time, she wants to just give herself some more recovery time. She had a lot of other doctors appointments and other medical conditions that took precedence over her back and now, her back is somewhat improved. At this time, she is going to continue on the medication and she is going to follow-up in 2 months for medication management appointments. She will call us if she decides she wants to pursue the ablation but right now, she just does not think that she wants to. OARRS was reviewed and is appropriate. We will obtain an updated UDS today for compliance purposes. Narcesmer offered and declined at this time, she will follow-up as we mention. LILIANE score: 42%. Result Comment: Electronical ly Signed By: Indiana Walsh PA-C\.br\Date and Time Signed: 02/05/24 10:18 EDT ALLERGIES DATE TYPE / CODE NAME / CODE REACTION SEVERITY SOURCE 01/02/2020 DRUG INGREDI/57936532 3(SNOMED CT) AMOXICILLIN Hives [facility] /063944812(SNO MED CT) amoxicillin Hives [facility] /505106472(SNO MED CT) No Known Allergies [facility] ENCOUNTERS ADMIT/DISCHARGE ACCOUNT NUMBER ADMITTING ENCOUNTER CLASS LOCATION SOURCE 02/02/2025/02/03/20 [id number] Ambulatory Building:[facility] C XRAY [facility] 02/02/2025/02/03/20 [id number] STAN PORTILLO Ambulatory Building:JONES oom: ORBed: 362 [facility] 01/30/2025/01/31/20 [id number] Ambulatory Building:RMC URO [facility] 01/25/2025/01/26/20 [id number] Ambulatory Building:NOM S NB OPHT [facility] Medical [facility] 01/25/2025/01/26/20 [id number] Ambulatory FT FM [place]FT FM [place] [facility] 01/25/2025/01/26/20 [id number] Ambulatory FT FM [place]:FT FM [place] : CD:[id number] 5 [facility] 01/24/2025 [id number] Ambulatory FT FM [place]:FT FM [facility] 01/24/2025/01/25/20 [id number] Ambulatory Building:HRT [facility] 01/24/2025 [id number] Ambulatory Building:UT C OPD [facility] 01/19/2025/01/20/20 [id number] Ambulatory Building:NOM S SWSDERM [facility] Medical [facility] EPIC 01/11/2025/01/12/20 [id number] [place] Ambulatory FTMCBuilding :FT END [facility] 01/02/2025/01/03/20 [id number] Ambulatory [facility] DHBuilding:Rebecca grimaldoZavala DHRoom: CD:[id number] 3 [facility] 12/20/2024/12/21/19 [id number] Ambulatory Buildin 95223 [facility] 12/20/2024/12/21/19 [id number] Ambulatory Building:C URO [facility] 12/09/2024 [id number] Ambulatory [facility] DHBuilding:F dannyer-Isiah [facility] 12/08/2024/12/09/19 [id number] JORDEN BERRIOS Ambulatory FTMCBuilding :FT LAB [facility] 12/08/2024/12/09/19 [id number] Ambulatory FT FM [place]:FT FM [place] : CD:[id number] [address] [place] [address] 11/10/2024/11/11/19 [id number] Ambulatory FT FM [place]:FT FM [facility] : CD:[id number] [address] [place] [address] 11/08/2024/11/09/19 [id number] [facility] Ros[facility] 10/26/2024/10/27/19 [id number] Ambulatory Building:[facility] S [facility] Specialists [facility] 10/20/2024/10/21/19 [id number] SHIRLEY Walsh Ambulatory FTMCBuilding :FT PMCRoom: [facility] 09/28/2024/09/29/19 [id number] [facility] S [facility] 09/20/2024/09/21/19 25 [id number] Ambulatory Building:NOM S NB [facility] 09/13/2024/09/14/19 25 [id number] Ambulatory Building:NOM S NB [facility] 09/06/2024/09/07/19 25 [id number] Ambulatory Building:NOM S NB [facility] 08/31/2024 [id number] Ambulatory Building:[facility] 08/19/2024 [id number] SHIRLEY Walsh Ambulatory FTMCBuilding :FT LAB [facility] 08/19/2024/08/20/19 [id number] SHIRLEY Walsh Ambulatory FTMCBuilding :FT LAB [facility] 08/19/2024/08/20/19 [id number] SHIRLEY Walsh Ambulatory FTMCBuilding :FT PMCRoom: EX3 [facility] 07/26/[id number] Amilcar Cordova Ambulatory FTMCBuilding :FT LAB [facility] 07/26/2024/07/28/19 [id number] Amilcar Cordova Ambulatory FTMCBuilding :FT LAB [facility] 07/26/2024/07/27/19 [id number] Ambulatory FT FM [place]:FT FM [facility] 07/25/2024/07/26/19 [id number] Ambulatory FT FM [place]:FT FM [place] : CD:[id number] [address] [place] [address] 07/21/2024/07/22/19 [id number] Ambulatory Building:BSR NEURO [facility] EPIC 07/20/2024/07/21/19 25 [id number] Ambulatory Building:NOM S NB OPHT [facility] 07/19/2024/07/20/19 25 [id number] Ambulatory Building:NOM S SWSDERM [facility] 07/06/2024/07/06/19 25 [id number] Ambulatory Building:CCB [facility] 06/03/2024/06/03/19 [id number] SHIRLEY Walsh Ambulatory FTMCBuilding :FT PMCRoom: [facility] 05/02/2024/05/02/20 24 [id number] Ambulatory FTMCBuilding :FT OPS [facility] 04/05/2024/04/05/20 [id number] SHIRLEY Walsh Ambulatory FTMCBuilding :FT PMCRoom: [facility] 03/22/2024/03/22/20 24 [id number] Ambulatory Building:NOM S NB OPHT [facility] 02/05/2024/02/05/20 24 [id number] SHIRLEY Walsh Ambulatory FTBuilding :FT LAB [facility] 02/05/2024/02/05/20 [id number] SHIRLEY Walsh Ambulatory FTBuilding :FT PMCRoom: [facility] PAYERS ENCOUNTER GUARANTOR PAYER SUBSCRIBER SOURCE 02/02/2025 Primary Insurance:MEDICAREP olicy Number: [id number] e Date:4592-50-49Uymz Name:Medicare SHERRY D WELLSDOB: [id number] [place] [id number] [facility] 02/02/2025 Secondary Insurance:MUTUAL OF OMAPolicrichard Number: [id number] Date:2015-01-09 DIANN LINDERB: [id number] [place] [id number] [facility] 02/02/2025 Primary Insurance:MEDICAREP olicy Number: [id number] e Date:3910-91-20Zljy Name:Medicare DIANN LINDERDOB: [id number] [place] [id number] [facility] 02/02/2025 Secondary Insurance:MUTUAL OF OMAHAPolicy Number: [id number] Date:2015-01-09 DIANN LINDERB: [id number] [place] [id number] [facility] 2025 Primary Insurance:MEDICAREP olicy Number: [id number] e Date:9140-45-35Aosv Name:Medicare DIANN LINDERDOB: [id number] [place] [id number] [facility] 2025 Secondary Insurance:MUTUAL OF OMAHAPolicy Number: [id number] Date:2015-01-09 DIANN LINDERB: [id number] [place] [id number] [facility] 01/25/2025 DIANN CHAVEZB: [place] [address]Yml: (HP) Primary Insurance:MEDICAREP olicy Number: [id number] e Date:7438-33-23Teag Name:Medicare SHERRY WELLSDOB: [id number] [place] [address] [facility] EPIC 01/25/2025 Secondary Insurance:MUTUAL OF OMAHAPolicy Number: [id number] Date:2015-01-09 DIANN CHAVEZB: [id number] [place] [address] [facility] EPIC 01/25/2025 DIANN RODAS: [place] STTel: ~ ~(68 (HP) Primary Insurance:MEDICAREP olicy Number: [id number] e Date:3710-28-77SR [address] [place] [address]XP: [facility] 01/25/2025 Secondary Insurance:MUTUAL OF OMAHAPolicy Number: [id number] Date:2597-81-22ZGYO [place], [place] [address]TC: [facility]NYULY [facility] 01/25/2025 DIANN CHAVEZB: [place] STTel: ~ ~(41 (HP) Primary Insurance:MEDICAREP olicy Number: [id number] e Date:1210-81-57AM [address] [place] [address] [place] [address]WK: [facility] 01/25/2025 Secondary Insurance:MUTUAL OF OMAHAPolicy Number: [id number] Date:3543-39-84VRIT [place] OF [place], [place] [address]GC: [facility] 01/24/2025 DIANN [facility]AVEZB: [facility] ~ ~(41 (HP) Primary Insurance:MEDICAREP olicy Number: [id number] e Date:3486-38-65JN DIANA LUX [address]SY: DIANN CAMPA [facility] 01/24/2025 Secondary Insurance:MUTUAL OF OMAHAPolicy Number: [id number] Date:1106-03-74VSOJ AL OF [facility] [place] [address]PR: DIANN CAMPA [facility] 01/24/2025 Primary Insurance:MEDICAREP olicy Number: [id number] e Date:6469-75-60Pjcg Name:Medicare DIANN LINDERDOB: [id number] [address] 01/24/2025 Secondary Insurance:MUTUAL OF OMAHAPolicy Number: [id number] Date:2015-01-09 DIANN CHAVEZB: [id number] [address] 01/24/2025 Primary Insurance:MEDICAREP olicy Number: [id number] Date:1653-98-49Ooxv Name:Medicare DIANN LINDERDOB: [id number] [address] 01/24/2025 Secondary Insurance:MUTUAL OF OMAHAPolicy Number: [id number] Date:2015-01-09 DIANN LINDERDOB: [id number] [place] [address] 01/19/2025 DIANN LINDERDOB: [place] [address]Ccd: (HP) Primary Insurance:MEDICAREP olicy Number: [id number] e Date:9490-13-26Gdhp Name:Medicare SHERRY WELLSDOB: [id number] [place] [address] [facility] 01/19/2025 Secondary Insurance:MUTUAL OF OMAHAPolicy Number: [id number] Date:2015-01-09 DIANN CHAVEZB: [id number] [place] [address] [facility] 01/11/2025 DIANN CHAVEZB: [address] STTel: ~ ~(41 (HP) Primary Insurance:MEDICAREP olicy Number: [id number] Date:9585-76-15AN [address] [place] [address]GQ: [facility]ULY [facility] 01/11/2025 Secondary Insurance:MUTUAL OF OMAHAPolicy Number: [id number] Date:5723-81-29ODKF [place] [address]MD: DIANN D [facility] 01/02/2025 DIANN CHAVEZB: [address] STTel: ~ ~(41 (HP) Primary Insurance:MEDICAREP olicy Number: [id number] e Date:9115-99-78NY [address] [place] [address]XT: DIANN D [facility] 01/02/2025 Secondary Insurance:MUTUAL OF OMAHAPolicy Number: [id number] Date:2388-39-56QMDP [place], [place] [address]PN: DIANN D [facility] 12/20/2024 Primary Insurance:MEDICAREP olicy Number: [id number] e Date:6121-08-27Hamk Name:Medicare SHERRY D WELLSDOB: [id number] [address] 12/20/2024 Secondary Insurance:MUTUAL OF OMAHAPolicy Number: [id number] Date:2015-01-09 DIANN CHAVEZB: [id number] [place] [address] 12/20/2024 Primary Insurance:MEDICAREP olicy Number: [id number] e Date:3671-40-13Cepm Name:Medicare SHERRY D WELLSDOB: [id number] [place] [address] 12/20/2024 Secondary Insurance:MUTUAL OF OMAHAPolicy Number: [id number] Date:2015-01-09 DIANN CHAVEZB: [id number] [place] [address] 12/08/2024 DIANN CHAVEZB: [place] STTel: ~ ~(41 (HP) Primary Insurance:MEDICAREP olicy Number: [id number] e Date:2072-71-78XO [address] [address]TA: [facility]NYULY [facility] 12/08/2024 Secondary Insurance:MUTUAL OF OMAHAPolicy Number: [id number] Date:4132-30-82GBRR [place] [address]QG: DIANN Lopez [facility] 12/08/2024 DIANN CHAVEZB: [place] STTel: ~ ~(41 (HP) Primary Insurance:MEDICAREP olicy Number: [id number] e Date:7207-71-37KQ [address] [address]PJ: DIANN CAMPA [facility] 12/08/2024 Secondary Insurance:MUTUAL OF OMAHAPolicy Number: [id number] Date:0838-24-86QFQK [place] [address]HM: [facility] 11/10/2024 DIANN CHAVEZB: [place] STTel: ~ ~(41 (HP) Primary Insurance:MEDICAREP olicy Number: [id number] e Date:5776-58-40SP [address] [address]BB: [facility] 11/10/2024 Secondary Insurance:MUTUAL OF OMAHAPolicy Number: [id number] Date:9523-46-76HSOD [place] [address]XQ: DIANN D [facility] 11/08/[address] [place] [address]Ndj: (HP) Primary Insurance:Self PayPolicy Number: Effective Date:2024-11-08 [facility] 10/26/2024 DIANN CHAVEZB: [address]Tel: (HP) Primary Insurance:MEDICAREP olicy Number: [id number] e Date:6391-75-31Kqya Name:Medicare DIANN CHAVEZRuperto: [id number] [place], [place] [address] [facility] EPIC 10/26/2024 Secondary Insurance:MUTUAL OF OMAHAPolicy Number: [id number] Date:2015-01-09 DIANN CHAVEZB: [id number] [facility] EPIC 10/20/2024 DIANN CHAVEZB: [place] STTel: ~ ~(41 (HP) Primary Insurance:MEDICAREP olicy Number: [id number] Date:5996-86-55[address] [address], [place] [address]CG: DIANN CAMPA [facility] 10/20/2024 Secondary Insurance:MUTUAL OF OMAHAPolicy Number: [id number] Date:6500-86-37PDHL AL OF [facility] [place] [address]NQ: DIANN CAMPA [facility] 09/28/2024 DIANNYULY LINDERDOB: [address]Tel: (HP) Primary Insurance:MEDICAREP olicy Number: [id number] e Date:1141-90-18Aocw Name:Medicare [facility]: [id number] [place] [address] [facility] EPIC 09/28/2024 Secondary Insurance:MUTUAL OF OMAHAPolicy Number: [id number] Date:2015-01-09 DIANNYULY LINDERDOB: [id number] [place] [address] [facility] EPIC 09/20/2024 DIANN LINDERDOB: [address]Tel: (HP) Primary Insurance:MEDICAREP olicy Number: [id number] e Date:3202-47-24Jmdp Name:Medicare DIANN LINDERB: [id number] [place] [address] [facility] EPIC 09/20/2024 Secondary Insurance:MUTUAL OF OMAHAPolicy Number: [id number] Date:2015-01-09 DIANN LINDERB: [id number] [place] [id number] [facility] EPIC 09/13/2024 DIANNYULY LINDERDOB: [address]Tel: (HP) Primary Insurance:MEDICAREP olicy Number: [id number] e Date:7449-09-10Ijwl Name:Medicare SHERRY WELLSDOB: [id number] [address] [facility]ists [facility] 09/13/2024 Secondary Insurance:MUTUAL OF OMAHAPolicy Number: [id number] Date:2015-01-09 DIANN CHAVEZB: [id number] [place] [address] [facility] 09/06/2024 DIANN CHAVEZB: [place] [address]Tel: (HP) Primary Insurance:MEDICAREP olicy Number: [id number] e Date:3188-96-87Gvds Name:Medicare SHERRY WELLSDOB: [id number] [place] [address] Medical Specialists [facility] 09/06/2024 Secondary Insurance:MUTUAL OF OMAHAPolicy Number: [id number] Date:2015-01-09 DIANN CHAVEZB: [id number] Medical Specialists [facility] 08/31/2024 Primary Insurance:MEDICAREP olicy Number: [id number] e Date:8957-58-91Wtaz Name:Medicare SHERRY D WELLSDOB: [id number] [address] 08/31/2024 Secondary Insurance:MUTUAL OF OMAHAPolicy Number: [id number] Date:2015-01-09 DIANN CHAVEZB: [id number] [place] [address] 08/19/2024 DIANN CHAVEZB: [address] STTel: ~ ~(41 (HP) Primary Insurance:MEDICAREP olicy Number: [id number] e Date:9277-76-56ZX [address] [place] [id number]: DIANN CAMPA [facility] 08/19/2024 Secondary Insurance:MUTUAL OF OMAHAPolicy Number: [id number] Date:[id number] [place] [address]ZA: [facility] DIANN LINDERDOB: NESCONSET STTel: ~ ~([phone] (HP) Primary Insurance:MEDICAREP olicy Number: [id number] Date:[id number] [address] [address] [address]MW: [facility] Secondary Insurance:MUTUAL OF OMAHAPolicy Number: [id number] Date:7980-49-76EPRY [place], [place] [address]RR: DIANN [facility] 07/26/2024 DIANN LINDERDOB: [place] STTel: ~ ~(41 (HP) Primary Insurance:MEDICAREP olicy Number: [id number] e Date:7361-81-07EB [address] [address]XN: [facility]2024 Secondary Insurance:MUTUAL OF OMAHAPolicy Number: [id number] Date:9088-52-57RPII [place], [place] [address]WD: [facility] 07/26/2024 DIANN LINDERDOB: [place] STTel: ~ ~(41 (HP) Primary Insurance:MEDICAREP olicy Number: [id number] e Date:1758-90-90ZA [address] [place] [address]RY: DIANN CAMPA [facility] 07/26/2024 Secondary Insurance:MUTUAL OF OMAHAPolicy Number: [id number] Date:9478-16-19SVIH AL [place], [place] [address]EP: [facility] 07/25/2024 DIANN CHAVEZB: [place] STTel: ~ ~(41 (HP) Primary Insurance:MEDICAREP olicy Number: [id number] e Date:7637-86-86HH [address] [place] [address]RD: [facility]ULY [facility] 07/25/2024 Secondary Insurance:MUTUAL OF OMAH[place]olicy Number: [id number] Date:1061-47-94QAGN [place], [place] [address]JQ: [facility]NYULY [facility] 07/21/2024 DIANN CHAVEZB: [address]Tel: (HP) Primary Insurance:MEDICAREP olicy Number: [id number] e Date:4999-52-99Kvis Name:Medicare DIANN CHAVEZB: [id number] [address] [facility] 07/21/2024 Secondary Insurance:MUTUAL OF OMAH[place]olicy Number: [id number] Date:2022-05-11 DIANN CHAVEZB: [id number] [place] [address] [facility] EPIC 07/20/2024 DIANN LINDERB: [address]: (HP) Primary Insurance:MEDICAREP olicy Number: [id number] e Date:5547-29-78Ifuz Name:Medicare SHERRY WELLSDOB: [id number] [place] [address] [facility] 07/20/2024 Secondary Insurance:MUTUAL OF [place]olicy Number: [id number] Date:2022-05-11 DIANN CHAVEZB: [id number] [address] [facility] 07/19/2024 DIANN CHAVEZB: [place] [address]Tel: (HP) Primary Insurance:MEDICAREP olicy Number: [id number] e Date:4836-96-61Sdmo Name:Medicare SHERRY WELLSDOB: [id number] [place] [address] [facility] 07/19/2024 Secondary Insurance:MUTUAL OF [place]MAH[place]olicy Number: [id number] Date:2022-05-11 DIANN CHAVEZB: [id number] [place] [address] [facility] 07/06/2024 Primary Insurance:MEDICAREP olicy Number: [id number] e Date:5368-61-56Xabu Name:Medicare SHERRY D WELLSDOB: [id number] [address] 07/06/2024 Secondary Insurance:MUTUAL OF OMAHAPolicy Number: [id number] Date:2015-01-09 DIANN CHAVEZB: [id number] [place] [address] 06/03/2024 DIANN CHAVEZB: [place] STTel: ~ ~(41 (HP) Primary Insurance:MEDICAREP olicy Number: [id number] e Date:3910-22-36EN [address] [place] [address]PD: DIANN CAMPA [facility] 06/03/2024 Secondary Insurance:MUTUAL OF OMAHAPolicy Number: [id number] Date:9904-14-44JCDS [place], [place] [address]ZD: [facility] 05/02/2024 DIANN LINDERDOB: [place] STTel: ~ ~(41 (HP) Primary Insurance:MEDICAREP olicy Number: [id number] e Date:5471-43-11ZF [address] [address]YN: [facility]UL[facility] 05/02/2024 Secondary Insurance:MUTUAL OF OMAH[place]olicy Number: [id number] Date:4036-76-17ERHQ [place], [place] [address]QF: DIANN [facility] 04/05/2024 DIANN LINDERDOB: [place] STTel: ~ ~(41 (HP) Primary Insurance:MEDICAREP olicy Number: [id number] e Date:3025-00-46VJ [address] [address]KC: [facility] 04/05/2024 Secondary Insurance:MUTUAL OF OMAHAPolicy Number: [id number] Date:9225-35-82XXOV [place], [place] [address]XK: [facility] 03/22/2024 DIANN LINDERDOB: [place] [address]Iht: (HP) Primary Insurance:MEDICAREP olicy Number: [id number] e Date:8318-56-20Qeaq Name:Medicare SHERRY WELLSDOB: [id number] [place] [address] [facility] 03/22/2024 Secondary Insurance:MUTUAL OF [place] Number: [id number] Date:2022-05-11 DIANN CHAVEZB: [id number] [place] [address] [facility] 02/05/2024 DIANN RODAS: [place] STTel: ~ ~(41 (HP) Primary Insurance:MEDICAREP olicy Number: [id number] e Date:9151-65-91YY [address] [address]HZ: DIANN [facility] 02/05/2024 Secondary Insurance:MUTUAL OF ROLANAPolbecky Number: [id number] Date:5692-83-64WKLW AL OF [place] [address]ER: DIANN D [facility]
--- NOTE | 2025-02-06 12:50 | MM_ITS ---
Patient Name: MICHA LINDER MR#: [id number] : 1950 Exam Date: 02/06/2025 Ordering Doctor: JORDEN BERRIOS RADIOLOGY REPORT PROCEDURE: MM TOMOSYNTHESIS SCREENING BI COMPARISON: MG MAMM PADMINI SCRN W CAD DIG, 02/20/2016. MG MAMM PADMINI SCRN W CAD DIG, 11/10/2013. MG MAMM PADMINI SCRN W CAD DIG, 03/10/2002. MG MAMM PADMINI SCRN W CAD DIG, 03/01/2001. INDICATIONS: Screening Calculator Name NCI Breast Cancer Risk Assessment Tool 5 Year Breast Cancer Risk 1.20% Lifetime Breast Cancer Risk 2.50% Personal Breast Cancer No Personal Ovarian Cancer No Treatments None Family Cancers Mother with uterine cancer at age ~70; Daughter with thyroid cancer at age 43. LOCATION: [facility] BREAST COMPOSITION: There are scattered areas of fibroglandular density. FINDINGS: DIAGNOSTIC CATEGORY 1--NEGATIVE. RIGHT BREAST: No significant suspicious finding. LEFT BREAST: No significant suspicious finding. RECOMMENDATIONS: ROUTINE MAMMOGRAM AND CLINICAL EVALUATION IN 12 MONTHS. Dictated by: Timmy Laboy DO on 02/06/2025 at 15:21 Approved by: Timmy Laboy DO on 02/06/2025 at 15:25
== END 2025-02-06 12:47 | disposition home or self-care (01) ==
LOC: MAMMO 12:46
PROVIDERS: PCP Nurse Practitioner Family; Visit Provider Nurse Practitioner Family
DX: Z12.31 Encounter for screening mammogram for malignant neoplasm of breast (principal); Z80.8 Family history of malignant neoplasm of other organs or systems
CPT/HCPCS: 77063; 77067